=== PATIENT | male | born 1950 | race Caucasian/White ===

== ENCOUNTER 2022-06-19 14:55 | Emergency (ER) | payer MEDICARE, SELFPAY ==
--- NOTE | ~2022-06-19 | US_ITS ---
EXAMINATION: US venous doppler LE RT DATE: 06/19/2022 17:24 INDICATION: swelling . TECHNIQUE: Grayscale images without and with compression and Doppler images of the right lower extrem ity veins were obtained. COMPARISON: None FINDINGS: The right common femoral vein, profunda (deep) femoral vein, femoral vein, popliteal vein, peroneal v ein, posterior tibial veins, gastrocnemius vein, and greater saphenous vein are patent. Subcutaneous edema noted throughout the examination. IMPRESSION: 1. Patent right lower extremity veins. No evidence of deep venous thrombosis. Reviewed, dictated and finalized at location K. ARE INTERVIEWER
[2022-06-19 15:19] VITALS: BP 187/65; PULSE 84; RESP 16; TEMP 36.9; O2SAT 98
--- NOTE | 2022-06-19 18:37 | ED.LOWEXIN ---
HPI - Extremity Injury (Lower) General Chief Complaint: Extremity Injury, Lower <Jesus Dooley MD - Last Filed: 06/21/22 04:47> Stated Complaint: R. leg swelling <Jesus Dooley MD - Last Filed: 06/21/22 04:47> Time Seen by Provider: 06/19/22 16:46 <Jesus Dooley MD - Last Filed: 06/21/22 04:47> History of Present Illness HPI Narrative: Patient is a 72-year-old male who presents ER with right lower extremity swelling and pain. Patient reports that 2 weeks ago he was on a walk when he felt sudden onset pain in his lower calf. He then began developing some swelling in his ankle is progressed up his leg. No chest pain or chest pressure. No difficulty breathing. Denies fevers or chills or sweats. Concern for DVT when coming for further evaluation. Patient is currently being worked up for some anemia that was discovered during an admission 1 month ago at [facility]. 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 They did find a mass in her spine and with he was evaluated by orthopedic surgery recently and there is no intervention required. Patient is scheduled for a colonoscopy for further evaluation. He has been taking iron. Patient also reports he has been having spontaneous nosebleeds every few days over the last month as well. He takes a baby aspirin no other blood thinners. <Jesus Dooley MD - Last Filed: 06/21/22 04:47> Review of Systems Review of Systems: All systems reviewed & are unremarkable except as noted in HPI and below <Jesus Doloey MD - Last Filed: 06/21/22 04:47> Constitutional: Constitutional: Denies chills, Denies fatigue and Denies fever(s) <Jesus Dooley MD - Last Filed: 06/21/22 04:47> ENT: Reports epistaxis, Denies nasal congestion and Denies sore throat <Jesus Dooley MD - Last Filed: 06/21/22 04:47> Cardiovascular: Cardiovascular: Denies chest pain, Denies rapid heart rate and Denies radiating jaw, neck or arm pain <Jesus Dooley MD - Last Filed: 06/21/22 04:47> Gastrointestinal: Gastrointestinal: Denies abdominal pain, Denies nausea and Denies vomiting <Jesus Dooley MD - Last Filed: 06/21/22 04:47> Musculoskeletal: Comments: Right lower extremity edema and bruising <Jesus Dooley MD - Last Filed: 06/21/22 04:47> Neurologic: Denies focal weakness and Denies numbness <Jesus Dooley MD - Last Filed: 06/21/22 04:47> PMFSH Past Medical History Medical History: Medical History (Updated 06/20/22 @ 00:07 by Zeus Moreira) Anemia Brain tumor Diabetes History of seizure disorder Hypertension <Jesus Dooley MD - Last Filed: 06/21/22 04:47> Surgical History Surgical History: Surgical History (Updated 06/19/22 @ 19:09 by Jesus Dooley MD) History of brain surgery Hx of total knee arthroplasty <Jesus Dooley MD - Last Filed: 06/21/22 04:47> Social History Social History: Social History (Updated 06/19/22 @ 19:09 by Jesus Dooley MD) Smoking status: Never smoker <Jesus Dooley MD - Last Filed: 06/21/22 04:47> Exam Narrative: GENERAL: Well-appearing, well-nourished, and in no acute distress. HEAD: Normocephalic, atraumatic. EYES: PERRL and EOMI. ENT: Mucous membranes moist. Small trickle of blood from the right naris that is easily stopped. CHEST: Clear to auscultation. No respiratory distress. HEART: Regular rate and rhythm. Normal peripheral pulses. ABDOMEN: Soft, nontender, nondistended. EXTREMITIES: Right lower extremity with pitting edema from the foot up to the thigh. Posterior aspect of the thigh with extensive bruising. Bilateral hamstrings intact at the knee. Patient has some limited flexion of the knee due to swelling and pain. Patient also tender over posterior inferior gastrocnemius. Achilles tendon intact as the foot plantar flexes with manipulation of the gastrocnemius. No tenderness at the insertion of the Achilles to the heel. There is some yellowing of the
[2022-06-19 19:09] LABS: Basophils Absolute Auto 0.1 K/mm3 (0.0-0.1); Basophils Percent Auto 0.9 % (0.2-1.2); Eosinophils Absolute Auto 0.1 K/mm3 (0-0.3); Hemoglobin 10.7 g/dL (14.0-18.0); Immature Granulocyte Absolute 0.03 K/mm3 (0.00-0.031); Immature Granulocyte Percent A 0.4 % (0-0.5); Immature Platelet Fraction Pct 6.2 % (0.9-11.2); Lymphocytes Absolute Auto 1.51 K/mm3 (0.9-3.2); Lymphocytes Percent Auto 22.5 % (18.3-44.2); Mean Corpuscular HGB Conc 31.5 g/dl (32-36); Mean Corpuscular Hemoglobin 27.4 pg (26-34); Mean Platelet Volume 10.6 fl (7.4-10.4); Monocytes Absolute Auto 0.6 K/mm3 (0.1-0.6); Monocytes Percent Auto 8.2 % (2.6-8.5); Neutrophils Absolute Auto 4.5 K/mm3 (1.3-6.7); Platelet Count Result 153 k/mm3 (150-375); Red Blood Count 3.91 M/mm3 (4.6-6.20); Red Cell Distribution Width 16.1 % (11.5-14.5); White Blood Count 6.7 K/mm3 (4.5-10.0)
[2022-06-19 19:22] LABS: INR 1.2; Prothrombin Time 14.3 Seconds (11.1-14.7)
[2022-06-19 19:23] LABS: Alanine Aminotransferase 14 U/L (6-50); Albumin Level 3.6 g/dL (3.5-5.1); Alkaline Phosphatase 56 U/L (38-126); Anion Gap 6 mmol/L (8-16); Aspartate Amino Transferase 17 U/L (17-59); Bilirubin,Total 0.6 mg/dL (0.2-1.3); Blood Urea Nitrogen 13 mg/dL (9-20); Calcium 8.5 mg/dL (8.4-10.2); Carbon Dioxide 25 mmol/L (22-30); Chloride 110 mmol/L (98-107); Estimated CRCL calculation 83 ml/min; Estimated Glomerular Filt Rate > 60; Glucose 83 mg/dL (65-110); Potassium 4.5 mmol/L (3.4-5.0); Sodium 141 mmol/L (137-145)
[2022-06-19 19:49] LABS: Partial Thromboplastin Time 38.5 SECONDS (22.3-36.8)
== END 2022-06-19 20:36 | disposition home or self-care (01) ==
PROVIDERS: Emergency Medicine; Emergency Provider Emergency Medicine
DX: S76.811A Strain of other specified muscles, fascia and tendons at thigh level, right thigh, initial encounter (principal); M79.661 Pain in right lower leg; T14.90XA Injury, unspecified, initial encounter; R79.1 Abnormal coagulation profile; E11.9 Type 2 diabetes mellitus without complications; I10 Essential (primary) hypertension
CPT/HCPCS: 36415; 80053; 85025; 85055; 85610; 85730; 93971; 99284

== ENCOUNTER 2022-08-02 05:37 | Emergency (ER) | payer MEDICARE, SELFPAY ==
[2022-08-02] VITALS (15 sets, daily range): BP systolic 160–182; BP diastolic 75–107; PULSE 81–92; RESP 14–20; TEMP 36.3–36.5; O2SAT 92–100
--- NOTE | ~2022-08-02 | XR_ITS ---
EXAMINATION: XR chest 1V portable DATE: 08/02/2022 06:29 INDICATION: Right-sided flank pain. TECHNIQUE: frontal view of the chest was obtained. COMPARISON: None FINDINGS: The lungs are clear with no focal airspace opacities, pulmonary edema, pleural effusion or pneumothor ax. The cardiomediastinal silhouette is normal. Mild thoracic dextrocurvature with moderate to severe spondylosis. IMPRESSION: 1. No acute cardiopulmonary disease. Reviewed, dictated and finalized at location A. STRIAL EDUCATION INSTRUCTOR
--- NOTE | ~2022-08-02 | CT_ITS ---
EXAMINATION: CT abdomen pelvis w con DATE: 08/02/2022 07:07 INDICATION: Right-sided abdominal pain and flank pain TECHNIQUE: Computed tomography (CT) of the abdomen and pelvis was performed with 100 mL Omnipaque-350 intravenous contrast. Automated exposure control and iterative reconstruction technique were employe d. The dose-length product was 1117.84 mGy-cm. COMPARISON: None FINDINGS: Minimal dependent atelectasis in the bilateral lower lobes. Heart size is normal. Atherosclerotic cor onary artery calcification. Mild aortic valve calcification. Small pericardial effusion. Cholecystect leighton clips the gallbladder fossa. Mild periportal edema. Splenomegaly measuring 15.6 cm in maximal marques gth. Pancreas and bilateral adrenal glands are normal. 11 mm nonobstructing stone at a lower pole maya yx of the right kidney. A few bilateral subcentimeter low-attenuation likely renal cysts which are to o small to definitively characterize. Moderate bilateral perinephric stranding with additional mild a nd retroperitoneal edema extending into the pelvis. There is haziness to the fat surrounding the blad chelle suspicious for cystitis. Suture line near the tip the cecum consistent with prior appendectomy. T here is mild colonic diverticulosis with descending colon predominance and without adjacent inflammat ory change to suggest diverticulitis. No bowel obstruction. There are couple peripherally calcified n odules in the fat anterior to the proximal sigmoid colon likely heterotopic ossification related to p rior fat necrosis. Small fat-containing left inguinal hernia. No abscess or free intraperitoneal gas or fluid. Mild thoracolumbar levocurvature with moderate to severe spondylosis. Chronic appearing com pression fractures at T11 and L1. IMPRESSION: 1. Haziness to the fat surrounding the bladder and moderate bilateral perinephric stranding suspiciou s for cystitis and I clear ascending urinary tract infection but without definitive pyelonephritis. C orrelate with urinalysis. 2. 11 mm nonobstructing right renal stone. 2. Small pericardial effusion. Reviewed, dictated and finalized at location A. ACT LENS FLASHING PUNCHER IMPRESSION: 1. Haziness to the fat surrounding the bladder and moderate bilateral perinephr ic stranding suspicious for cystitis and I clear ascending urinary tract infect ion but without definitive pyelonephritis. Correlate with urinalysis. 2. 11 mm nonobstructing right renal stone. 2. Small pericardial effusion.
--- NOTE | 2022-08-02 05:44 | ED.GENADULT ---
HPI - General Adult General Chief complaint: Urogenital-Male <Frantz Ramirez MD - Last Filed: 08/04/22 01:57> Stated complaint: back pain <Frantz Ramirez MD - Last Filed: 08/04/22 01:57> Time Seen by Provider: 08/02/22 05:44 <Frantz Ramirez MD - Last Filed: 08/04/22 01:57> History of Present Illness HPI narrative: This is a 72-year-old male presenting ED with a chief complaint of right-sided flank and abdominal pain. Patient says that the pain started 4 nights ago on Sunday. The pain is a burning sensation in his right flank that wraps around into his groin. The pain improved at that time with some Tylenol but then recurred again yesterday. Patient has never had pain like this before. There are no exacerbating or alleviating factors. Patient states that he has been told that he has nonobstructing kidney stones by several physicians. Patient denies fever, chills, dysuria urgency or frequency although he says that he is having trouble urinating at this time. Patient notes that he has had a small-bowel obstruction in the past that resolved without surgery. He has not had a bowel movement 3 days and does not know when the last time he passed gas. Patient denies any increased physical activity or movement as a trigger for his pain. Patient denies bowel incontinence, history of IV drug abuse or trauma. <Frantz Ramirez MD - Last Filed: 08/04/22 01:57> Related Data Home medications: Home Medications Medication Instructions Recorded Confirmed amlodipine 5 mg tablet 5 mg PO DAILY 08/03/22 08/03/22 aspirin 81 mg tablet 81 mg PO DAILY 08/03/22 08/03/22 atorvastatin 40 mg tablet 40 mg PO DAILY 08/03/22 08/03/22 ferrous sulfate 325 mg (65 mg 325 mg PO DAILY 08/03/22 08/03/22 iron) tablet insulin aspart U-100 100 unit/mL 5 unit subcut TIDWMEAL 08/03/22 08/03/22 (3 mL) subcutaneous pen (Novolog FlexPen U-100 Insulin aspart) insulin glargine 100 unit/mL (3 30 unit subcut QAM 08/03/22 08/03/22 mL) subcutaneous pen (Lantus Solostar U-100 Insulin) krill oil 500 mg capsule 500 mg PO DAILY 08/03/22 08/03/22 levetiracetam 1,000 mg tablet 1,000 mg PO DIRECTED 08/03/22 08/03/22 lisinopril 20 mg tablet 20 mg PO DAILY 08/03/22 08/03/22 metformin 1,000 mg tablet 1,000 mg PO BID 08/03/22 08/03/22 multivitamin with minerals-folic 1 tablet PO DAILY 08/03/22 08/03/22 acid 0.4 mg tablet pantoprazole 40 mg tablet,delayed 40 mg PO DAILY 08/03/22 08/03/22 release <Frantz Ramirez MD - Last Filed: 08/04/22 01:57> Allergies/adverse reactions: Allergies Allergy/AdvReac Type Severity Reaction Status Date / Time codeine Allergy Unknown Other Verified 08/03/22 11:17 empagliflozin Allergy Unknown Other Verified 08/03/22 11:17 [From Jardiance] <Frantz Ramirez MD - Last Filed: 08/04/22 01:57> [facility] Past Medical History Medical History: Medical History Anemia Brain tumor Diabetes History of seizure disorder Hypertension <Frantz Ramirez MD - Last Filed: 08/04/22 01:57> Surgical History Surgical History: Surgical History History of brain surgery Hx of total knee arthroplasty <Frantz Ramirez MD - Last Filed: 08/04/22 01:57> Social History Social History: Social History Smoking status: Former smoker Tobacco type: pipe Substance use type: does not use Living arrangements: alone Spiritual care concerns: No <Frantz Ramirez MD - Last Filed: 08/04/22 01:57> Exam Narrative: APPEARANCE: Patient appears uncomfortable Head: atraumatic. EYES: EOMI, NOSE: Atraumatic NECK: Trachea midline RESPIRATORY: No increased rate of breathing CARDIOVASCULAR: RRR, ABDOMINAL: right-sided abdominal pain, right-sided CVA tenderness. No guarding or rebound. MUSCULOSKELETAl: No obvious deformities
--- NOTE | 2022-08-02 05:56 | PC.NURSE ---
Bladder scan post void showed 52ml urine
[2022-08-02 06:03] LABS: Appearance Urine Clear (Clear); Bacteria Urine None Seen /hpf; Bilirubin Urine Negative (Negative); Blood Urine 1+ (Negative); Color Urine Yellow (Yellow); Glucose Urine UA Negative (Negative); Ketones Urine Negative (Negative); Leukocyte Esterase Ur Negative LEU/UL (Negative); Nitrate Urine Negative (Negative); Non Pathogenic Casts 0-2; Protein Urine 3+ mg/dL (Negative); RBC Urine 0-2 /hpf (0-2); Specific Grav Ur 1.022 (1.001-1.035); Squamous Epithelial Cell Urine None seen /hpf (Few); Urobilinogen Urine 0.2 mg/dL (<2.0); WBC Urine 0-5 /hpf
[2022-08-02] MEDS: IBUPROFEN 400 MG TABLET 800 MG PO (06:27)
[2022-08-02] MEDS: SODIUM CHLORIDE 0.9% IV 1,000 ML 999 ML IV CONT (06:27)
[2022-08-02] MEDS: ACETAMINOPHEN 500 MG TABLET 1000 MG PO (06:27)
[2022-08-02 06:29] LABS: Basophils Absolute Auto 0.1 K/mm3 (0.0-0.1); Eosinophils Absolute Auto 0.1 K/mm3 (0-0.3); Eosinophils Percent Auto 1.8 % (0-4.4); Immature Granulocyte Absolute 0.03 K/mm3 (0.00-0.031); Immature Granulocyte Percent A 0.4 % (0-0.5); Immature Platelet Fraction Pct 7.7 % (0.9-11.2); Lymphocytes Absolute Auto 1.54 K/mm3 (0.9-3.2); Lymphocytes Percent Auto 23.1 % (18.3-44.2); Mean Corpuscular HGB Conc 31.6 g/dl (32-36); Mean Corpuscular Hemoglobin 27.6 pg (26-34); Mean Corpuscular Volume 87.4 fl (80-100); Mean Platelet Volume 11.7 fl (7.4-10.4); Monocytes Absolute Auto 0.3 K/mm3 (0.1-0.6); Monocytes Percent Auto 5.1 % (2.6-8.5); Neutrophils Absolute Auto 4.6 K/mm3 (1.3-6.7); Neutrophils Percent Auto 68.6 % (45.5-73.1); Platelet Count Result 108 k/mm3 (150-375); Red Blood Count 4.35 M/mm3 (4.6-6.20); Red Cell Distribution Width 14.6 % (11.5-14.5); White Blood Count 6.7 K/mm3 (4.5-10.0)
[2022-08-02 06:36] LABS: Lipase 50 U/L (23-300); Magnesium 1.6 mg/dL (1.6-2.3)
[2022-08-02 06:37] LABS: Lactic Acid Reflex 1.1 mmol/L (0.7-2.0)
[2022-08-02 06:38] LABS: INR 1.1; Prothrombin Time 13.9 Seconds (11.1-14.7)
[2022-08-02 06:39] LABS: Partial Thromboplastin Time 39.4 SECONDS (22.3-36.8)
[2022-08-02 06:40] LABS: Alanine Aminotransferase 18 U/L (6-50); Alkaline Phosphatase 45 U/L (38-126); Anion Gap 7 mmol/L (8-16); Aspartate Amino Transferase 26 U/L (17-59); Bilirubin,Total 0.5 mg/dL (0.2-1.3); Blood Urea Nitrogen 14 mg/dL (9-20); Calcium 8.8 mg/dL (8.4-10.2); Carbon Dioxide 25 mmol/L (22-30); Chloride 105 mmol/L (98-107); Estimated CRCL calculation 85 ml/min; Estimated Glomerular Filt Rate > 60; Glucose 149 mg/dL (65-110); Potassium 4.3 mmol/L (3.4-5.0); Sodium 137 mmol/L (137-145)
[2022-08-02] MEDS: methocarbamoL 750 MG TABLET PO (06:47)
[2022-08-02 06:50] LABS: Add Urine Microscopic? YES
[2022-08-02 07:02] LABS: Influenza A QL RT-PCR Negative (Negative); Influenza B QL RT-PCR Negative (Negative); RSV RNA, RT-PCR Negative (Negative); SARS-CoV-2 RNA PCR Negative
[2022-08-02] MEDS: ONDANSETRON INJ 4 MG/2 ML VIAL IV PUSH (08:52)
[2022-08-02] MEDS: MORPHINE SULFATE (*CRX) 4 MG/ML INJ IV PUSH (08:55)
[2022-08-02] MEDS: CIPROFLOXACIN 500 MG TAB PO (09:24)
== END 2022-08-02 09:30 | disposition home or self-care (01) ==
PROVIDERS: Emergency Medicine; Emergency Provider Emergency Medicine; PCP Emergency Medicine
DX: N39.0 Urinary tract infection, site not specified (principal); Z20.822 Contact with and (suspected) exposure to COVID-19; G40.909 Epilepsy, unspecified, not intractable, without status epilepticus; E11.9 Type 2 diabetes mellitus without complications; I10 Essential (primary) hypertension; Z96.659 Presence of unspecified artificial knee joint; Z87.891 Personal history of nicotine dependence; Z79.84 Long term (current) use of oral hypoglycemic drugs; Z79.4 Long term (current) use of insulin; Z79.82 Long term (current) use of aspirin; N20.0 Calculus of kidney
CPT/HCPCS: 36415; 71045; 74177; 80053; 81001; 83605; 83690; 83735; 85025; 85055; 85610; 85730; 87637; 96361; 96374; 96375; 99284; A9270; J2270; J2405; J7030; Q9967

== ENCOUNTER 2022-08-04 17:14 | Outpatient (CLI) | payer MEDICARE, SELFPAY ==
[2022-08-04 17:30] LABS: Appearance Urine Clear (Clear); Basophils Absolute Auto 0.07 K/mm3 (0.00-0.10); Basophils Percent Auto 0.9 % (0.0-1.0); Bilirubin Urine Negative (Negative); Blood Urine 1+ (Negative); Color Urine Light Yellow (Yellow); Eosinophils Absolute Auto 0.08 K/mm3 (0.02-0.50); Eosinophils Percent Auto 1.1 % (1.0-6.0); Glucose Urine UA Negative (Negative); Hematocrit 39.8 % (37.0-46.0); Hemoglobin 12.5 g/dL (12.4-15.3); Immature Granulocyte Absolute 0.03 K/mm3 (0.00-0.00); Immature Granulocyte Percent A 0.4 % (0.0-0.0); Immature Platelet Fraction Pct 7.1 % (1.0-7.0); Ketones Urine Negative (Negative); Leukocyte Esterase Ur Negative (Negative); Lymphocytes Absolute Auto 2.05 K/mm3 (1.10-4.50); Lymphocytes Percent Auto 27.6 % (18.0-42.0); Mean Corpuscular HGB Conc 31.4 g/dL (32.0-36.0); Mean Corpuscular Hemoglobin 27.4 pg (27.0-31.0); Mean Corpuscular Volume 87.3 fL (78.0-102.0); Mean Platelet Volume 11.2 fl (8.7-11.0); Monocytes Absolute Auto 0.49 K/mm3 (0.10-0.90); Monocytes Percent Auto 6.6 % (2.0-11.0); Neutrophils Absolute Auto 4.7 K/mm3 (1.7-7.2); Neutrophils Percent Auto 63.4 % (50.0-70.0); Nitrate Urine Negative (Negative); Platelet Count Result 128 K/mm3 (150-420); Protein Urine 2+ (Negative); Red Blood Count 4.56 M/mm3 (4.70-6.10); Red Cell Distribution Width 14.4 % (11.6-14.4); Specific Grav Ur 1.025 (1.010-1.020); Urobilinogen Urine 0.2 mg/dL (0.2-1.0); White Blood Count 7.4 K/mm3 (4.8-10.8); pH Urine 5.5 (5.0-8.0)
[2022-08-04 18:51] LABS: Add Urine Microscopic? YES; Bacteria Urine Trace /hpf; WBC Urine 0-3 /hpf (0-3)
[2022-08-04 19:10] LABS: Alanine Aminotransferase 20 U/L (16-63); Alkaline Phosphatase 54 U/L (46-116); Anion Gap 11 mmol/L (8-16); Aspartate Amino Transferase 13 U/L (15-37); Bilirubin,Total 0.3 mg/dL (0.00-1.00); Blood Urea Nitrogen 12 mg/dL (7-18); Calcium 8.8 mg/dL (8.5-10.1); Carbon Dioxide 28 mmol/L (21-32); Chloride 109 mmol/L (98-108); Estimated Glomerular Filt Rate > 60; Glucose 91 mg/dL (70-99); Osmolality Calculated 305 mOsm/kg (285-295); Potassium 4.3 mmol/L (3.5-5.1); Prostate Specific Antigen 0.5 ng/mL (< OR = 4.0); Sodium 148 mmol/L (136-145); Total Protein 7.1 g/dL (6.4-8.2)
== END 2022-08-04 17:15 | disposition home or self-care (01) ==
LOC: CHSLAB 17:15
PROVIDERS: PCP Internal Medicine; Visit Provider Internal Medicine
DX: R10.9 Unspecified abdominal pain (principal); N41.9 Inflammatory disease of prostate, unspecified
CPT/HCPCS: 36415; 80053; 81001; 84153; 85025; 85055; 87086

== ENCOUNTER 2022-08-14 02:13 | Day surgery (SDC) | payer MEDICARE, SELFPAY ==
[2022-08-03 11:16] VITALS: BMI 32.5
[2022-08-14 10:19] VITALS: BP 175/60; PULSE 72; RESP 20; TEMP 36.4; O2SAT 100
[2022-08-14] MEDS: LACTATED RINGERS 1,000 ML 150 ML IV CONT (10:35)
[2022-08-14 10:36] LABS: Glucose Point of Care 144 mg/dl (65-105)
--- NOTE | 2022-08-14 10:42 | PM.HPGS ---
History of Present Illness History of Present Illness Consent: Risks, benefits, and alternatives have been discussed and questions answered. Patient agrees to proceed with procedure. Chief complaint: DYLAN, Blood in stool, hx colon polyps Narrative: Dane Parker is a 72 year old male with last colonoscopy ~ 3 years ago, had polyps, also occult blood stool Review of Systems Constitutional: Constitutional: Denies headache(s) and Denies weakness Eyes: Eyes: Denies blurry vision ENT: Reports Normal hearing present, Denies headache(s) and Denies neck pain Cardiovascular: Cardiovascular: Denies chest pain and Denies dyspnea Respiratory: Respiratory: Denies dyspnea Gastrointestinal: Gastrointestinal: Reports no additional gastrointestinal complaints Genitourinary: Genitourinary: Denies dysuria Musculoskeletal: Musculoskeletal: Denies neck pain Integumentary/Breasts: Skin/Breast: Denies dry skin Neurologic: Reports Normal hearing present, Denies headache(s) and Denies weakness Psychiatric: Psychiatric: Denies anxiety Endocrine: Endocrine: Denies change in body appearance Hematologic/Lymphatic: Hematologic/Lymphatic: Denies easy bleeding Allergic/Immunologic: Allergic/Immunologic: Denies urticaria PMFSH Past Medical History Medical History (Updated 08/14/22 @ 10:43 by Jaron Crook MD) Anemia Brain tumor Colon polyp Diabetes History of seizure disorder Hypertension Occult blood in stools Surgical History Surgical History History of brain surgery Hx of total knee arthroplasty Social History Social History Smoking status: Former smoker Tobacco type: pipe Substance use type: does not use Living arrangements: alone Spiritual care concerns: No Meds Home Medications and Allergies Home Medications Medication Instructions Recorded Confirmed Type amlodipine 5 mg tablet 5 mg PO DAILY 08/03/22 08/03/22 History aspirin 81 mg tablet 81 mg PO DAILY 08/03/22 08/03/22 History atorvastatin 40 mg tablet 40 mg PO DAILY 08/03/22 08/03/22 History ferrous sulfate 325 mg (65 mg 325 mg PO DAILY 08/03/22 08/03/22 History iron) tablet insulin aspart U-100 100 unit/mL 5 unit subcut TIDWMEAL 08/03/22 08/03/22 History (3 mL) subcutaneous pen (Novolog FlexPen U-100 Insulin aspart) insulin glargine 100 unit/mL (3 30 unit subcut QAM 08/03/22 08/03/22 History mL) subcutaneous pen (Lantus Solostar U-100 Insulin) krill oil 500 mg capsule 500 mg PO DAILY 08/03/22 08/03/22 History levetiracetam 1,000 mg tablet 1,000 mg PO DIRECTED 08/03/22 08/03/22 History lisinopril 20 mg tablet 20 mg PO DAILY 08/03/22 08/03/22 History metformin 1,000 mg tablet 1,000 mg PO BID 08/03/22 08/03/22 History multivitamin with minerals-folic 1 tablet PO DAILY 08/03/22 08/03/22 History acid 0.4 mg tablet pantoprazole 40 mg tablet,delayed 40 mg PO DAILY 08/03/22 08/03/22 History release Allergies Allergy/AdvReac Type Severity Reaction Status Date / Time codeine Allergy Unknown Other Verified 08/14/22 10:18 empagliflozin Allergy Unknown Other Verified 08/14/22 10:18 [From Jardiance] Vital Signs Vital Signs - 24 hr 08/14/22 10:19 Temperature 97.5 F L Pulse Rate 72 Respiratory Rate 20 Blood Pressure 175/60 H Pulse Oximetry 100 Oxygen Delivery Room Air Exam Const: General: comfortable and no acute distress HENMT: Face/Nose/Sinus: Normal nares present Eyes: General: appearance normal, both eyes and all related structures Neck: Neck: no JVD Resp: Auscultation: clear to auscultation bilaterally Cardio: Rate: regular rate Rhythm: regular rhythm GI: Inspection: non-distended GI Palp: Yes Soft to palpation Skin: General skin exam: normal color Neuro: General: gait normal Speech: normal speech Extrem: General: normal to inspection Psych: Mental Status:
--- NOTE | 2022-08-14 10:50 | WPDANESEPPF ---
Anes - Initial Pre Proc Eval Procedure: Operation Date: 08/14/22 11:30 Proposed Procedures p Colonoscopy - Jaron Crook MD Date/Time: 08/14/22 10:50 Surgeon: Jaron Crook MD Pre Op Diagnosis: DYLAN, Blood in stool, hx colon polyps Patient Data Age: 72 Gender: M Height: 1.75 m Weight: 94.3 kg Last Vital Signs Temp 97.5 F L 08/14/22 10:19 Pulse 72 08/14/22 10:19 Resp 20 08/14/22 10:19 BP 175/60 H 08/14/22 10:19 Pulse Ox 100 08/14/22 10:19 O2 Del Method Room Air 08/14/22 10:19 Allergies Allergy/AdvReac Type Severity Reaction Status Date / Time codeine Allergy Unknown Other Verified 08/14/22 10:18 empagliflozin Allergy Unknown Other Verified 08/14/22 10:18 [facility] Home Medications Medication Instructions Recorded Confirmed Type amlodipine 5 mg tablet 5 mg PO DAILY 08/03/22 08/03/22 History aspirin 81 mg tablet 81 mg PO DAILY 08/03/22 08/03/22 History atorvastatin 40 mg tablet 40 mg PO DAILY 08/03/22 08/03/22 History ferrous sulfate 325 mg (65 mg 325 mg PO DAILY 08/03/22 08/03/22 History iron) tablet insulin aspart U-100 100 unit/mL 5 unit subcut TIDWMEAL 08/03/22 08/03/22 History (3 mL) subcutaneous pen (Novolog FlexPen U-100 Insulin aspart) insulin glargine 100 unit/mL (3 30 unit subcut QAM 08/03/22 08/03/22 History mL) subcutaneous pen (Lantus Solostar U-100 Insulin) krill oil 500 mg capsule 500 mg PO DAILY 08/03/22 08/03/22 History levetiracetam 1,000 mg tablet 1,000 mg PO DIRECTED 08/03/22 08/03/22 History lisinopril 20 mg tablet 20 mg PO DAILY 08/03/22 08/03/22 History metformin 1,000 mg tablet 1,000 mg PO BID 08/03/22 08/03/22 History multivitamin with minerals-folic 1 tablet PO DAILY 08/03/22 08/03/22 History acid 0.4 mg tablet pantoprazole 40 mg tablet,delayed 40 mg PO DAILY 08/03/22 08/03/22 History release Laboratory Tests 08/14/22 10:26 POC Capillary Glucose 144 mg/dl H mg/dl (65-105) Patient hx anesthesia problems: none Family hx anesthesia problems: none Results Review: All pre-operative results and documents have been reviewed as part of the pre-operative evaluation. [facility] Past Medical History Medical History (Updated 08/14/22 @ 10:43 by Jaron Crook MD) Anemia Brain tumor Colon polyp Diabetes History of seizure disorder Hypertension Occult blood in stools Surgical History Surgical History History of brain surgery Hx of total knee arthroplasty Social History Social History Smoking status: Former smoker Tobacco type: pipe Substance use type: does not use Living arrangements: alone Spiritual care concerns: No Anes - Eval Final PreProcedure Day of Procedure 08/14/22 10:50 Patient weight: normal Heart: irregular rhythm Lungs: clear to auscultation Airway: Mallampati scale class II Neurological: alert and oriented Last oral intake: >/= 8 hours ASA classification: III Emergent: no Anesthetic plan: proceed Anesthesia type and monitoring: general GIVS and standard monitoring Results Review: All pre-operative results and documents have been reviewed as part of the pre-operative evaluation. Informed Consent: The patient's anesthetic plan and its attendant risks and benefits were discussed with the patient/family/POA. Questions were solicited and answers provided to the satisfaction of the patient/family/POA.
[2022-08-14 11:16] VITALS: BP 125/72; PULSE 79; RESP 33; O2SAT 99
[2022-08-14 11:26] VITALS: BP 128/68; PULSE 81; RESP 29; O2SAT 98
[2022-08-14 11:36] VITALS: BP 159/84; PULSE 82; RESP 18; O2SAT 99
== END 2022-08-14 11:43 | disposition home or self-care (01) ==
PROVIDERS: PCP Internal Medicine; Referring Provider Internal Medicine; Visit Provider Internal Medicine Gastroenterology
PROC: 0DJD8ZZ Inspection of Lower Intestinal Tract, Via Natural or Artificial Opening Endoscopic (ICD-10-PCS; CPT 45378; principal; 2022-08-14 11:30)
DX: K92.1 Melena (principal); D12.3 Benign neoplasm of transverse colon; D12.4 Benign neoplasm of descending colon; K57.30 Diverticulosis of large intestine without perforation or abscess without bleeding; K64.8 Other hemorrhoids; D50.9 Iron deficiency anemia, unspecified; E11.9 Type 2 diabetes mellitus without complications; I10 Essential (primary) hypertension; G40.909 Epilepsy, unspecified, not intractable, without status epilepticus; Z79.82 Long term (current) use of aspirin; Z79.4 Long term (current) use of insulin; Z79.84 Long term (current) use of oral hypoglycemic drugs; Z87.891 Personal history of nicotine dependence
CPT/HCPCS: 45385; 82948; 88305; J2704; J7120

== ENCOUNTER 2022-10-03 01:58 | Day surgery (SDC) | payer MEDICARE, SELFPAY ==
[2022-09-21 11:37] VITALS: BMI 30.9
[2022-10-03 08:10] VITALS: BP 166/80; PULSE 79; RESP 18; TEMP 36; O2SAT 100
[2022-10-03] MEDS: LACTATED RINGERS 1,000 ML 150 ML IV CONT (08:32)
[2022-10-03 08:33] LABS: Glucose Point of Care 195 mg/dl (65-105)
--- NOTE | 2022-10-03 09:05 | PM.HPGS ---
History of Present Illness History of Present Illness Consent: Risks, benefits, and alternatives have been discussed and questions answered. Patient agrees to proceed with procedure. Chief complaint: DYLAN Narrative: Dane Parker is a 72 year old male with mild anemia but repeat h/h normal, recent colonoscopy unremarkable, no overt gib but had occult blood in stool Review of Systems Constitutional: Constitutional: Denies headache(s) and Denies weakness Eyes: Eyes: Denies blurry vision ENT: Reports Normal hearing present, Denies headache(s) and Denies neck pain Cardiovascular: Cardiovascular: Denies chest pain and Denies dyspnea Respiratory: Respiratory: Denies dyspnea Gastrointestinal: Gastrointestinal: Reports no additional gastrointestinal complaints Genitourinary: Genitourinary: Denies dysuria Musculoskeletal: Musculoskeletal: Denies neck pain Integumentary/Breasts: Skin/Breast: Denies dry skin Neurologic: Reports Normal hearing present, Denies headache(s) and Denies weakness Psychiatric: Psychiatric: Denies anxiety Endocrine: Endocrine: Denies change in body appearance Hematologic/Lymphatic: Hematologic/Lymphatic: Denies easy bleeding Allergic/Immunologic: Allergic/Immunologic: Denies urticaria PMFSH Past Medical History Medical History (Updated 10/03/22 @ 09:06 by Jaron Crook MD) Anemia Brain tumor Colon polyp Diabetes History of seizure disorder Hypertension Occult blood in stools Surgical History Surgical History History of brain surgery Hx of total knee arthroplasty Social History Social History Smoking status: Former smoker Tobacco type: pipe Alcohol intake: never Substance use: never Substance use type: does not use Living arrangements: with family Spiritual care concerns: No Meds Home Medications and Allergies Home Medications Medication Instructions Recorded Confirmed Type amlodipine 5 mg tablet 5 mg PO DAILY 08/03/22 10/03/22 History aspirin 81 mg tablet 81 mg PO DAILY 08/03/22 10/03/22 History atorvastatin 40 mg tablet 40 mg PO DAILY 08/03/22 10/03/22 History ferrous sulfate 325 mg (65 mg 325 mg PO DAILY 08/03/22 10/03/22 History iron) tablet insulin aspart U-100 100 unit/mL 5 unit subcut TIDWMEAL 08/03/22 10/03/22 History (3 mL) subcutaneous pen (Novolog FlexPen U-100 Insulin aspart) insulin glargine 100 unit/mL (3 20 unit subcut DAILY 08/03/22 10/03/22 History mL) subcutaneous pen (Lantus Solostar U-100 Insulin) krill oil 500 mg capsule 500 mg PO DAILY 08/03/22 10/03/22 History levetiracetam 1,000 mg tablet 1,000 mg PO DIRECTED 08/03/22 10/03/22 History lisinopril 20 mg tablet 20 mg PO DAILY 08/03/22 10/03/22 History metformin 1,000 mg tablet 1,000 mg PO BID 08/03/22 10/03/22 History multivitamin with minerals-folic 1 tablet PO DAILY 08/03/22 10/03/22 History acid 0.4 mg tablet pantoprazole 40 mg tablet,delayed 40 mg PO DAILY 08/03/22 10/03/22 History release zonisamide 100 mg capsule 200 mg PO HS 09/21/22 10/03/22 History Allergies Allergy/AdvReac Type Severity Reaction Status Date / Time codeine Allergy Unknown Other Verified 10/03/22 08:17 empagliflozin Allergy Unknown Other Verified 10/03/22 08:17 [From J[facility]iance] Vital Signs Vital Signs - 24 hr 10/03/22 08:10 Temperature 96.8 F L Pulse Rate 79 Respiratory Rate 18 Blood Pressure 166/80 H Pulse Oximetry 100 Oxygen Delivery Room Air Exam Const: General: comfortable and no acute distress HENMT: Face/Nose/Sinus: Normal nares present Eyes: General: appearance normal, both eyes and all related structures Neck: Neck: no JVD Resp: Auscultation: clear to auscultation bilaterally Cardio: Rate: regular rate Rhythm: regular rhythm GI: Inspection: non-distended GI Palp: Yes Soft to palpation Skin: General skin exam:
--- NOTE | 2022-10-03 09:06 | WPDANESEPPF ---
Anes - Initial Pre Proc Eval Procedure: Operation Date: 10/03/22 09:30 Proposed Procedures p Esophagogastroduodenoscopy - Jaron Crook MD Date/Time: 10/03/22 09:06 Surgeon: Jaron Crook MD Pre Op Diagnosis: DYLAN Patient Data Age: 72 Gender: M Height: 1.75 m Weight: 92.4 kg Last Vital Signs Temp 96.8 F L 10/03/22 08:10 Pulse 79 10/03/22 08:10 Resp 18 10/03/22 08:10 BP 166/80 H 10/03/22 08:10 Pulse Ox 100 10/03/22 08:10 O2 Del Method Room Air 10/03/22 08:10 Allergies Allergy/AdvReac Type Severity Reaction Status Date / Time codeine Allergy Unknown Other Verified 10/03/22 08:17 empagliflozin Allergy Unknown Other Verified 10/03/22 08:17 [From [facility]] Home Medications Medication Instructions Recorded Confirmed Type amlodipine 5 mg tablet 5 mg PO DAILY 08/03/22 10/03/22 History aspirin 81 mg tablet 81 mg PO DAILY 08/03/22 10/03/22 History atorvastatin 40 mg tablet 40 mg PO DAILY 08/03/22 10/03/22 History ferrous sulfate 325 mg (65 mg 325 mg PO DAILY 08/03/22 10/03/22 History iron) tablet insulin aspart U-100 100 unit/mL 5 unit subcut TIDWMEAL 08/03/22 10/03/22 History (3 mL) subcutaneous pen (Novolog FlexPen U-100 Insulin aspart) insulin glargine 100 unit/mL (3 20 unit subcut DAILY 08/03/22 10/03/22 History mL) subcutaneous pen (Lantus Solostar U-100 Insulin) krill oil 500 mg capsule 500 mg PO DAILY 08/03/22 10/03/22 History levetiracetam 1,000 mg tablet 1,000 mg PO DIRECTED 08/03/22 10/03/22 History lisinopril 20 mg tablet 20 mg PO DAILY 08/03/22 10/03/22 History metformin 1,000 mg tablet 1,000 mg PO BID 08/03/22 10/03/22 History multivitamin with minerals-folic 1 tablet PO DAILY 08/03/22 10/03/22 History acid 0.4 mg tablet pantoprazole 40 mg tablet,delayed 40 mg PO DAILY 08/03/22 10/03/22 History release zonisamide 100 mg capsule 200 mg PO HS 09/21/22 10/03/22 History Laboratory Tests 10/03/22 08:23 POC Capillary Glucose 195 H mg/dl (65-105) Patient hx anesthesia problems: none Family hx anesthesia problems: none Results Review: All pre-operative results and documents have been reviewed as part of the pre-operative evaluation. [facility] Past Medical History Medical History (Updated 10/03/22 @ 09:06 by Jaron Crook MD) Anemia Brain tumor Colon polyp Diabetes History of seizure disorder Hypertension Occult blood in stools Surgical History Surgical History History of brain surgery Hx of total knee arthroplasty Social History Social History Smoking status: Former smoker Tobacco type: pipe Alcohol intake: never Substance use: never Substance use type: does not use Living arrangements: with family Spiritual care concerns: No Anes - Eval Final PreProcedure Day of Procedure 10/03/22 09:06 Patient weight: normal Heart: irregular rhythm Lungs: clear to auscultation Airway: Mallampati scale class II Neurological: alert and oriented Last oral intake: >/= 8 hours ASA classification: III Emergent: no Anesthetic plan: proceed Anesthesia type and monitoring: general GIVS and standard monitoring Results Review: All pre-operative results and documents have been reviewed as part of the pre-operative evaluation. Informed Consent: The patient's anesthetic plan and its attendant risks and benefits were discussed with the patient/family/POA. Questions were solicited and answers provided to the satisfaction of the patient/family/POA.
[2022-10-03 09:20] VITALS: BP 133/74; PULSE 74; RESP 20; O2SAT 100
[2022-10-03 09:30] VITALS: BP 140/69; PULSE 70; RESP 20; O2SAT 97
[2022-10-03 09:40] VITALS: BP 143/73; PULSE 68; RESP 20; O2SAT 98
[2022-10-03 09:44] LABS: Glucose Point of Care 177 mg/dl (65-105)
== END 2022-10-03 09:51 | disposition home or self-care (01) ==
PROVIDERS: PCP Internal Medicine; Visit Provider Internal Medicine Gastroenterology
PROC: 0DJ08ZZ Inspection of Upper Intestinal Tract, Via Natural or Artificial Opening Endoscopic (ICD-10-PCS; CPT 43235; principal; 2022-10-03 09:30)
DX: D64.9 Anemia, unspecified (principal); K29.70 Gastritis, unspecified, without bleeding; R19.5 Other fecal abnormalities; E11.9 Type 2 diabetes mellitus without complications; G40.909 Epilepsy, unspecified, not intractable, without status epilepticus; I10 Essential (primary) hypertension; Z87.891 Personal history of nicotine dependence; Z79.82 Long term (current) use of aspirin; Z79.4 Long term (current) use of insulin; Z79.84 Long term (current) use of oral hypoglycemic drugs
CPT/HCPCS: 43239; 82948; 88305; J2704; J7120

== ENCOUNTER 2022-10-26 18:05 | Emergency (ER) | payer MEDICARE, SELFPAY ==
--- NOTE | ~2022-10-26 | XR_ITS ---
EXAMINATION: XR ribs LT 2V DATE: 10/26/2022 18:37 INDICATION: Left rib injury post fall TECHNIQUE: Views of the left ribs were obtained. COMPARISON: Chest radiograph dated 08/02/22 FINDINGS: No rib fractures identified. Small lung volumes. No focal airspace opacities, pulmonary edema, pleura l effusion or pneumothorax. Heart size within normal limits for AP technique. Mild thoracic dextrocur vature with moderate thoracic and lumbar spondylosis. Cholecystectomy clips in right upper quadrant. IMPRESSION: 1. No rib fractures identified. Reviewed, dictated and finalized at location A.
--- NOTE | ~2022-10-26 | CT_ITS ---
EXAMINATION: CT brain wo con DATE: 10/26/2022 18:36 INDICATION: Left-sided head pain post fall TECHNIQUE: Computed tomography (CT) of the head was performed without intravenous contrast. Sagittal and coronal reconstructions were performed. The mA was adjusted according to patient size. Iterative reconstruction technique was employed. The dose-length product was 681.00 mGy-cm. COMPARISON: None FINDINGS: No acute fracture. Left frontal craniotomy with plate and screw fixations. Small region of encephalom alacia consistent with old infarct in the left frontal lobe. Additional small old lacunar infarct in the right frontal lobe white matter. No acute intracranial hemorrhage, acute infarction or abnormal e xtra axial fluid collection. There is mild scattered white matter hypoattenuation consistent with chr onic small vessel ischemic disease. Symmetric prominence of the sulci consistent with mild age-approp riate diffuse cerebral volume loss. Ventricles are normal and symmetric. No mass/mass effect. Changes of right intraocular lens replacement. The orbits and mastoid air cells are normal. Mucosal thickeni ng the ethmoid sinuses. Intracranial calcified cerebral atherosclerosis is noted. IMPRESSION: 1. No acute fracture or acute intracranial process. 2. Small old bilateral frontal infarcts. 2. Age-related changes including mild diffuse volume loss and mild scattered white matter hypoattenua tion consistent with chronic small vessel ischemic disease. Reviewed, dictated and finalized at location A. IMPRESSION: 1. No acute fracture or acute intracranial process. 2. Small old bilateral frontal infarcts. 2. Age-related changes including mild diffuse volume loss and mild scattered wh ite matter hypoattenuation consistent with chronic small vessel ischemic diseas e.
[2022-10-26 18:08] VITALS: BP 163/78; PULSE 77; TEMP 37.2; O2SAT 96
[2022-10-26] MEDS: KETOROLAC 30 MG/ML VIAL (*BKC) IM (19:01)
--- NOTE | 2022-10-26 19:09 | ED.HEATRA ---
HPI - Head Injury General Chief complaint: Fall Stated complaint: fall Time Seen by Provider: 10/26/22 18:10 Source: patient and EMS Mode of arrival: ambulatory Limitations: no limitations History of Present Illness HPI Narrative: This is a 72-year-old gentleman with a history of hypertension hyperlipidemia with chronic back pain with radiculopathy presents after he fell out of his chair, actually slid to the floor hit his head and left rib area unsure of loss of consciousness currently no headache no blurry vision no nausea vomiting does have tenderness to the left rib area, there is pain and tenderness to his lower back which is chronic with no injuries. Complaint: head injury Onset (ago): hour(s) Mechanism of Injury: fall Place: home Loss of Consciousness: unsure Location of injury: occipital Severity: mild Related Data Home Medications Medication Instructions Recorded Confirmed amlodipine 5 mg tablet 5 mg PO DAILY 08/03/22 10/03/22 aspirin 81 mg tablet 81 mg PO DAILY 08/03/22 10/03/22 atorvastatin 40 mg tablet 40 mg PO DAILY 08/03/22 10/03/22 ferrous sulfate 325 mg (65 mg 325 mg PO DAILY 08/03/22 10/03/22 iron) tablet insulin aspart U-100 100 unit/mL 5 unit subcut TIDWMEAL 08/03/22 10/03/22 (3 mL) subcutaneous pen (Novolog FlexPen U-100 Insulin aspart) insulin glargine 100 unit/mL (3 20 unit subcut DAILY 08/03/22 10/03/22 mL) subcutaneous pen (Lantus Solostar U-100 Insulin) krill oil 500 mg capsule 500 mg PO DAILY 08/03/22 10/03/22 levetiracetam 1,000 mg tablet 1,000 mg PO DIRECTED 08/03/22 10/03/22 lisinopril 20 mg tablet 20 mg PO DAILY 08/03/22 10/03/22 metformin 1,000 mg tablet 1,000 mg PO BID 08/03/22 10/03/22 multivitamin with minerals-folic 1 tablet PO DAILY 08/03/22 10/03/22 acid 0.4 mg tablet pantoprazole 40 mg tablet,delayed 40 mg PO DAILY 08/03/22 10/03/22 release zonisamide 100 mg capsule 200 mg PO HS 09/21/22 10/03/22 Allergies Allergy/AdvReac Type Severity Reaction Status Date / Time codeine Allergy Unknown Other Verified 10/03/22 08:17 empagliflozin Allergy Unknown Other Verified 10/03/22 08:17 [From Jardiance] Review of Systems Review of Systems: All systems reviewed & are unremarkable except as noted in HPI and below PMFSH Past Medical History Medical History Anemia Brain tumor Colon polyp Diabetes History of seizure disorder Hypertension Occult blood in stools Surgical History Surgical History History of brain surgery Hx of total knee arthroplasty Social History Social History Smoking status: Former smoker Tobacco type: pipe Alcohol intake: never Substance use: never Substance use type: does not use Living arrangements: with family Spiritual care concerns: No Exam Const: General: healthy appearing Nutritional Appearance: well nourished Orientation/consciousness: patient oriented x3 Limitations: no limitations HENMT: Head: normal to inspection Eyes: Conjunctivae: conjunctivae normal Pupils: Equal, round and reactive pupils present EOM: EOMs intact bilaterally Direct Ophthalmoscopy: no photophobia Neck: Neck: normal visual inspection Chest: Chest palpation & inspection: normal inspection of the chest Resp: Effort & Inspection: normal respiratory effort Cardio: Rate: regular rate Rhythm: regular rhythm GI: GI Palp: Yes Soft to palpation Auscultation: normal bowel sounds : General: Yes bladder normal to palpation Skin: General skin exam: normal color Rashes: no rashes Wounds: no wounds Neuro: General: patient oriented x3 and moves all extremities Extrem: General: normal to inspection Psych: Mental Status: mental status grossly normal Affect: normal affect Attitude: cooperative Course Course Emergency Course: Patient received IM [facility]
[2022-10-26 19:47] VITALS: BP 155/85; PULSE 73; RESP 20; O2SAT 96
== END 2022-10-26 19:48 | disposition home or self-care (01) ==
PROVIDERS: Emergency Provider Emergency Medicine; PCP Internal Medicine
DX: S20.212A Contusion of left front wall of thorax, initial encounter (principal); S09.90XA Unspecified injury of head, initial encounter; E11.9 Type 2 diabetes mellitus without complications; I10 Essential (primary) hypertension; E78.5 Hyperlipidemia, unspecified; Z79.4 Long term (current) use of insulin; Z87.891 Personal history of nicotine dependence; W07.XXXA Fall from chair, initial encounter; Y92.009 Unspecified place in unspecified non-institutional (private) residence as the place of occurrence of the external cause
CPT/HCPCS: 70450; 71100; 96372; 99284; J1885

== ENCOUNTER 2022-12-28 12:04 | Outpatient (CLI) | payer MEDICARE, SELFPAY ==
--- NOTE | ~2022-12-28 | XR_ITS ---
Clinical Indication: Dyspnea AP and lateral views of the chest: Comparison: 08/02/2022 Findings: The lungs are clear, without evidence of focal consolidation or pleural effusion. Cardiome diastinal silhouette is within normal limits. L1 compression fracture noted. Impression: Clear lungs. L1 compression fracture. Reviewed, dictated and finalized at location . Impression: Clear lungs. L1 compression fracture.
--- NOTE | ~2022-12-28 | CT_ITS ---
EXAMINATION: CT brain wo con DATE: 12/28/2022 12:49 INDICATION: Weakness. Right leg paralysis. TECHNIQUE: Computed tomography (CT) of the head was performed without intravenous contrast. The mA wa s adjusted according to patient size. Iterative reconstruction technique was employed. The dose-lengt h product was 605.33 mGy-cm. COMPARISON: Head CT 10/26/2022 FINDINGS: There are scattered areas of low attenuation in the cerebral white matter, which is within normal limits for the patient's age. There is an old infarct in the right frontal lobe deep white mat ter. There is an old infarct in left frontal lobe. There is no intracranial hemorrhage, acute infarct ion, or abnormal intracranial mass lesion. The ventricles are normal in size. There are likely change s of right ocular lens replacement surgery. There is mucosal thickening in the paranasal sinuses and nasal cavity. The mastoid air cells are normal. There is cerumen in the external auditory canals. The re are changes of left-sided craniotomy. IMPRESSION: 1. Old infarcts in the frontal lobes. Reviewed, dictated and finalized at location L.
--- NOTE | ~2022-12-28 | CT_ITS ---
EXAMINATION: CT lumbar spine w con DATE: 12/28/2022 12:49 INDICATION: Weakness. Right leg paralysis. TECHNIQUE: Computed tomography (CT) of the lumbar spine was performed with 100 mL Omnipaque 350 intra venous contrast. Automated exposure control and iterative reconstruction technique were employed. The dose-length product was 987.95 mGy-cm. COMPARISON: None FINDINGS: There is 10 degrees levoscoliosis of lumbar spine. There is a chronic compression fracture of L1 with 3/5 loss of height centrally. There is severely decreased disc height at T11-T12, mildly d ecreased disc height at L1-L2, moderately decreased disc height at L2-L3, and mildly decreased disc h eight at L3-L4 and L4-L5. There are laminectomies from L3 to L5. There is hematoma in the postsurgica l bed, likely subacute. No active extravasation of contrast. The following disc levels are specifical ly discussed: L1-L2: The disc is bulging. There is moderate bilateral facet joint osteoarthritis. There is mild alpesh ateral neural foraminal stenosis. There is mild central canal stenosis. L2-L3: The disc is bulging. There is severe bilateral facet joint osteoarthritis. There is mild bilat eral neural foraminal stenosis. There is mild central canal stenosis. L3-L4: The disc is bulging. There is severe bilateral facet joint osteoarthritis. There is moderate b ilateral neural foraminal stenosis. There is mild central canal stenosis with posterior decompression . L4-L5: The disc is bulging. There is severe bilateral facet joint osteoarthritis. There is moderate b ilateral neural foraminal stenosis. There is mild central canal stenosis with posterior decompression . L5-S1: The disc is bulging. There is severe bilateral facet joint osteoarthritis. There is mild right and moderate left neural foraminal stenosis. There is mild central canal stenosis with posterior dec ompression. IMPRESSION: 1. Moderate lumbar spondylosis. 2. Lumbar levoscoliosis. Reviewed, dictated and finalized at location L.
[2022-12-28 12:46] LABS: Estimated Glomerular Filt Rate > 60
[2022-12-28 13:31] LABS: Hematocrit 37.8 % (42.0-52.0); Hemoglobin 11.9 g/dL (14.0-18.0); Mean Corpuscular HGB Conc 31.5 g/dl (32-36); Mean Corpuscular Hemoglobin 27.2 pg (26-34); Mean Corpuscular Volume 86.5 fl (80-100); Mean Platelet Volume 10.3 fl (7.4-10.4); Platelet Count Result 131 k/mm3 (150-375); Red Blood Count 4.37 M/mm3 (4.6-6.20); Red Cell Distribution Width 13.4 % (11.5-14.5); White Blood Count 7.6 K/mm3 (4.5-10.0)
[2022-12-28 13:36] LABS: Appearance Urine Clear (Clear); Bacteria Urine None Seen /hpf; Bilirubin Urine Negative (Negative); Blood Urine Negative (Negative); Color Urine Yellow (Yellow); Glucose Urine UA 3+ mg/dL (Negative); Ketones Urine Negative (Negative); Leukocyte Esterase Ur Negative LEU/UL (NEGATIVE); Nitrate Urine Negative (Negative); Non Pathogenic Casts 0-2; Protein Urine 1+ mg/dL (Negative); RBC Urine 0-2 /hpf (0-2); Squamous Epithelial Cell Urine None seen /hpf (Few); Urobilinogen Urine 0.2 mg/dL (<2.0); WBC Urine 0-5 /hpf (0-3); pH Urine 6.5 (5.0-9.0)
[2022-12-28 13:41] LABS: Specific Grav Ur 1.052 (1.001-1.035)
[2022-12-28 13:45] LABS: Alanine Aminotransferase 19 U/L (6-50); Albumin Level 4.1 g/dL (3.5-5.1); Alkaline Phosphatase 64 U/L (38-126); Anion Gap 8 mmol/L (8-16); Aspartate Amino Transferase 27 U/L (17-59); Bilirubin,Total 0.3 mg/dL (0.2-1.3); Blood Urea Nitrogen 16 mg/dL (9-20); CRP < 0.5 mg/dL (<1.0); Calcium 8.9 mg/dL (8.4-10.2); Carbon Dioxide 23 mmol/L (22-30); Chloride 104 mmol/L (98-107); Estimated Glomerular Filt Rate > 60; Glucose 283 mg/dL (65-110); Magnesium 1.9 mg/dL (1.6-2.3); Potassium 4.2 mmol/L (3.4-5.0); Sodium 135 mmol/L (137-145)
[2022-12-28 13:50] LABS: NT Pro B Type Natriuretic Pept 450 pg/mL (19.9-100)
[2022-12-28 14:17] LABS: Add Urine Microscopic? YES
== END 2022-12-28 12:05 | disposition home or self-care (01) ==
PROVIDERS: PCP Internal Medicine; Visit Provider Internal Medicine
DX: R41.82 Altered mental status, unspecified (principal); R06.00 Dyspnea, unspecified; R53.1 Weakness; M47.896 Other spondylosis, lumbar region
CPT/HCPCS: 70450; 71046; 72132; 80053; 81001; 83735; 83880; 85027; 86140; 87086; Q9967

== ENCOUNTER 2023-01-17 09:50 | Observation (INO) | payer MEDICARE, SELFPAY ==
[2023-01-17] VITALS (13 sets, daily range): BP systolic 124–159; BP diastolic 67–91; PULSE 70–86; RESP 12–24; TEMP 36.4–36.6; O2SAT 90–100; BMI 27.8
--- NOTE | ~2023-01-17 | CT_ITS ---
EXAMINATION: CT brain wo con DATE: 01/17/2023 11:20 INDICATION: Trauma. Status post multiple recent falls. TECHNIQUE: Computed tomography (CT) of the head was performed without intravenous contrast. The dose- length product was 605.33 mGy-cm. Automated exposure control and iterative reconstruction technique w ere employed. COMPARISON: CT dated 12/28/2022 FINDINGS: Generalized atrophy. There are scattered mild periventricular and subcortical white matter changes, most likely related to small vessel ischemic disease (microangiopathy). Chronic right fronta l lobe infarction. No ventriculomegaly or midline shift. No acute intracranial hemorrhage, infarction , mass or mass effect. There are changes of left-sided craniotomy. There is mucosal thickening of the eighth white sinuses. Mastoids are pneumatized. IMPRESSION: 1. No acute intracranial abnormality. 2: Chronic right frontal lobe infarction. 3: Ethmoid sinusitis. Reviewed, dictated and finalized at location B.
--- NOTE | ~2023-01-17 | US_ITS ---
EXAMINATION:US venous doppler LE BI INDICATION:Bilateral lower extremity swelling TECHNIQUE: Multiple grayscale, color flow and Doppler images of the right and left lower extremity de ep venous systems were obtained and reviewed. COMPARISON:06/19/2022 FINDINGS: The common femoral, superficial femoral and popliteal veins demonstrate normal respiratory variation, augmentation and compressibility. Color flow is also seen within the posterior tibial, pe roneal, greater saphenous and profunda veins. IMPRESSION: 1: No lower extremity deep venous thrombosis. Reviewed, dictated and finalized at location L.
--- NOTE | ~2023-01-17 | CT_ITS ---
EXAMINATION: CT femur RT w con DATE: 01/17/2023 11:20 INDICATION: Right thigh pain. Injury. TECHNIQUE: Computed tomography (CT) of the right femur was performed with 100 mL Omnipaque 350 intrav enous contrast. Automated exposure control and iterative reconstruction technique were employed. The dose-length product was 1221.13 mGy-cm. COMPARISON: None FINDINGS: Bone alignment is normal. No fracture. There is moderate lumbar spondylosis. There are lami nectomies of lumbar spine. 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 There is moderate right hip osteoarthritis. There is a mildly enlarged right external iliac lymph node, likely reactiv e. The prostate is mildly enlarged. There is no significant arterial occlusive disease. In the distal thigh medially, there is an ill-defined intramuscular hematoma with 5 mm pseudoaneurysm opacified by contrast. IMPRESSION: 1. Ill-defined intramuscular hematoma in distal medial thigh with 5 mm pseudoaneurysm opacified by co ntrast. Reviewed, dictated and finalized at location A. IMPRESSION: 1. Ill-defined intramuscular hematoma in distal medial thigh with 5 mm pseudoan eurysm opacified by contrast.
[2023-01-17] MEDS: MORPHINE SULFATE (*CRX) 4 MG/ML INJ IV PUSH ×2 (10:25→12:29)
[2023-01-17 10:46] LABS: Basophils Absolute Auto 0.1 K/mm3 (0.0-0.1); Basophils Percent Auto 0.9 % (0.2-1.2); Eosinophils Absolute Auto 0.2 K/mm3 (0-0.3); Eosinophils Percent Auto 2.8 % (0-4.4); Hematocrit 38.5 % (42.0-52.0); Hemoglobin 11.8 g/dL (14.0-18.0); Immature Granulocyte Absolute 0.03 K/mm3 (0.00-0.031); Immature Granulocyte Percent A 0.4 % (0-0.5); Lymphocytes Absolute Auto 1.82 K/mm3 (0.9-3.2); Lymphocytes Percent Auto 24.7 % (18.3-44.2); Mean Corpuscular HGB Conc 30.6 g/dl (32-36); Mean Corpuscular Hemoglobin 26.5 pg (26-34); Mean Corpuscular Volume 86.3 fl (80-100); Mean Platelet Volume 11.8 fl (7.4-10.4); Monocytes Absolute Auto 0.5 K/mm3 (0.1-0.6); Monocytes Percent Auto 6.6 % (2.6-8.5); Neutrophils Absolute Auto 4.8 K/mm3 (1.3-6.7); Neutrophils Percent Auto 64.6 % (45.5-73.1); Platelet Count Result 104 k/mm3 (150-375); Red Blood Count 4.46 M/mm3 (4.6-6.20); Red Cell Distribution Width 14.5 % (11.5-14.5); White Blood Count 7.4 K/mm3 (4.5-10.0)
[2023-01-17 10:59] LABS: Alanine Aminotransferase 19 U/L (6-50); Albumin Level 4.2 g/dL (3.5-5.1); Alkaline Phosphatase 77 U/L (38-126); Anion Gap 9 mmol/L (8-16); Aspartate Amino Transferase 29 U/L (17-59); Bilirubin,Total 0.4 mg/dL (0.2-1.3); Blood Urea Nitrogen 21 mg/dL (9-20); Calcium 8.9 mg/dL (8.4-10.2); Carbon Dioxide 20 mmol/L (22-30); Chloride 108 mmol/L (98-107); Estimated CRCL calculation 59 ml/min; Estimated Glomerular Filt Rate > 60; Glucose 175 mg/dL (65-110); Potassium 4.7 mmol/L (3.4-5.0); Sodium 137 mmol/L (137-145)
[2023-01-17 11:02] LABS: Prothrombin Time 13.9 Seconds (11.1-14.7)
--- NOTE | 2023-01-17 12:11 | ED.FALL ---
HPI - Fall General Chief Complaint: Fall Stated Complaint: fall Time Seen by Provider: 01/17/23 09:56 History of Present Illness HPI Narrative: Patient is a 72-year-old male who presents ER with recurrent falls. Patient had a back surgery from L4-S1 on November 02, 2022 at [facility]. He subsequently developed hematoma and cauda equina syndrome. Since then he has had numbness to his groin and numbness to his right leg. He is able to stool and urinate without issue. He was seen by his orthopedic spine surgeon yesterday. He was reporting pain to his right mid thigh and had an x-ray of his femur was abnormal and they ordered a CT scan for next week to better image whether he had a soft tissue tumor or a bony tumor. Patient reports when he walks he feels like his leg gives out. He tries to use a walker but is also been using a wheelchair. He has had some home physical therapy that has not been effective. Patient denies falling and striking his head or losing consciousness today. He is not on any blood thinners. He has no new back pain or injury to his back after a fall. Related Data Home Medications Medication Instructions Recorded Confirmed amlodipine 5 mg tablet 5 mg PO DAILY 08/03/22 10/03/22 aspirin 81 mg tablet 81 mg PO DAILY 08/03/22 10/03/22 atorvastatin 40 mg tablet 40 mg PO DAILY 08/03/22 10/03/22 ferrous sulfate 325 mg (65 mg 325 mg PO DAILY 08/03/22 10/03/22 iron) tablet insulin aspart U-100 100 unit/mL 5 unit subcut TIDWMEAL 08/03/22 10/03/22 (3 mL) subcutaneous pen (Novolog FlexPen U-100 Insulin aspart) insulin glargine 100 unit/mL (3 20 unit subcut DAILY 08/03/22 10/03/22 mL) subcutaneous pen (Lantus Solostar U-100 Insulin) krill oil 500 mg capsule 500 mg PO DAILY 08/03/22 10/03/22 levetiracetam 1,000 mg tablet 1,000 mg PO DIRECTED 08/03/22 10/03/22 lisinopril 20 mg tablet 20 mg PO DAILY 08/03/22 10/03/22 metformin 1,000 mg tablet 1,000 mg PO BID 08/03/22 10/03/22 multivitamin with minerals-folic 1 tablet PO DAILY 08/03/22 10/03/22 acid 0.4 mg tablet pantoprazole 40 mg tablet,delayed 40 mg PO DAILY 08/03/22 10/03/22 release zonisamide 100 mg capsule 200 mg PO HS 09/21/22 10/03/22 Allergies Allergy/AdvReac Type Severity Reaction Status Date / Time codeine Allergy Unknown Other Verified 10/03/22 08:17 empagliflozin Allergy Unknown Other Verified 10/03/22 08:17 [From [facility]iance] Review of Systems Review of Systems: All systems reviewed & are unremarkable except as noted in HPI and below Constitutional: Constitutional: Denies chills, Denies fatigue and Denies fever(s) ENT: Denies nasal congestion and Denies sore throat Cardiovascular: Cardiovascular: Denies chest pain, Denies rapid heart rate and Denies radiating jaw, neck or arm pain Gastrointestinal: Gastrointestinal: Denies abdominal pain, Denies nausea and Denies vomiting Musculoskeletal: Musculoskeletal: Reports back pain (chronic), Denies arthralgias, Denies joint swelling and Reports muscle cramps Neurologic: Denies syncope, Denies headache(s), Denies focal weakness and Reports numbness PMFSH Past Medical History Medical History (Updated 01/17/23 @ 17:39 by Jesus Dooley MD) Anemia Brain tumor Colon polyp Diabetes History of seizure disorder Hypertension Occult blood in stools Surgical History Surgical History (Updated 01/17/23 @ 17:39 by Jesus Dooley MD) History of back surgery History of brain surgery Hx of total knee arthroplasty Social History Social History Smoking status: Former smoker Tobacco type: pipe Alcohol intake: never Substance use: never Substance use type: does not use Living arrangements: with family Spiritual care concerns: No Exam Narrative: GENERAL: Well-appearing, well-nourished, and in no acute distress. HEAD: Normocephalic, atraumatic. EYES: PERRL and EOMI. ENT: Mucous membranes moist.
--- NOTE | 2023-01-17 14:00 | PC.NURSE ---
This RN attempted to ambulate pt at this time. Pt stated he was too scared to walk. MD made aware and PT/OT and care coordination consulted.
--- NOTE | 2023-01-17 15:01 | PCCCNOTE ---
Met with pt and son in ED 13. Pt currently goes to outpt PT per son. After discussing pt needs assisted living appears to be the best choice. A list of available assisted living in the area given to son. Son will reach out to assisted living facilities to determine best fit.
--- NOTE | 2023-01-17 15:24 | PC.NURSE ---
PT here to eval pt at this time.
--- NOTE | 2023-01-17 16:14 | PC.NURSE ---
Dr. Dooley speaking with pt and son about DC plans. Wants to hold off on discharging at this time.
[2023-01-17] MEDS: MORPHINE SULFATE (*CRX) 4 MG/ML INJ 2 MG IV PUSH (17:40)
--- NOTE | 2023-01-17 18:42 | ADMGEN ---
This patient, Dane Parker, was admitted to Medical Room 246-. Patient/family oriented to hospital policies and general routines including ID bracelet, bed and alarms, visiting hours, pain management, procedures, bathroom and other care routines, personal items, smoking policy, room service/diet, and visiting hours. Information on how to activate the Rapid Response Team has been discussed. Patient/Family are encouraged to report perceived risks to care and to ask questions if they do not understand what they are told or what they should do.
[2023-01-17] MEDS: HYDROcodone/acetaminophen (*CRX) 5-325 MG TABLET 1 TAB PO (20:04)
[2023-01-17 20:35] LABS: Glucose Point of Care 172 mg/dl (65-105)
--- NOTE | 2023-01-17 20:35 | PM.IMHP ---
H&P: HPI History of Present Illness Date/Time: 01/17/23 20:35 Chief Complaint: Fall Narrative: This is a 72-year-old male patient who came to the emergency room due to recurrent falls. The patient had a back surgery on November 02, 2022 L4-S1 at [facility]. The patient subsequently developed a hematoma and cauda equina syndrome. The patient has had numbness to his right growing a numbness to his right leg. The patient is now complaining of pain to his right thigh. The patient is not incontinent of bowel or bladder. The patient was seen by the orthopedic spine surgeon yesterday. The patient complains of having some drainage from the lower at portion of the surgical site. The patient stated that the surgeon is aware. The patient has not had any fever chills. The patient has been complaining pain to the right mid in the thigh and his x-ray of his femur was abnormal therefore a CT was ordered for this next week due to a soft tissue tumor or bony tumor. The patient states when he walks he feels like his leg is giving out. The patient attempts to use his walker and is also using a wheelchair. The patient lives home alone and feels that he cannot take care of himself. The patient has been falling but denies striking his head or losing consciousness. The patient is not currently on any blood thinners. He has no complaints of back pain. Femur CT was read as the following. Ill-defined intramuscular hematoma in distal medial thigh with 5 mm pseudoaneurysm opacified by contrast. Head CT was read as the following. No acute intracranial abnormality. 2: Chronic right frontal lobe infarction. 3: Ethmoid sinusitis. The patient stated that he has tried heat and ice to his right thigh without any relief. The patient was given morphine in the emergency room. According to ER noteDiscussion of Management/Consultants: [facility] orthopedic surgery (Dr. Maria) and vascular surgery (Dr. Manrique).? No recommendations for intervention.? Physical therapy has evaluated the patient recommends admission and acute inpatient rehab. Accu-Chek 172. The patient is being admitted to observation status on the date of service of 01/17/2023 Review of Systems Review of Systems: All systems reviewed & are unremarkable except as noted in HPI and below Constitutional: Constitutional: Reports as per HPI and Reports no additional constitutional complaints Eyes: Eyes: Reports as per HPI and Reports no additional eye complaints ENT: Reports system reviewed and no additional complaints, except as documented and Reports Normal hearing present Cardiovascular: Cardiovascular: Reports no additional cardiovascular complaints Respiratory: Respiratory: Reports no additional respiratory complaints and Reports no additional respiratory complaints Gastrointestinal: Gastrointestinal: Reports as per HPI and Reports no additional gastrointestinal complaints Musculoskeletal: Musculoskeletal: Reports no additional musculoskeletal complaints Integumentary/Breasts: Skin/Breast: Reports system reviewed and no additional complaints, except as docu and Reports as per HPI Neurologic: Reports system reviewed and no additional complaints, except as documented, Reports as per HPI and Reports Normal hearing present Psychiatric: Psychiatric: Reports no additional psychiatric complaints and Reports as per HPI Endocrine: Endocrine: Reports no additional endocrine complaints Hematologic/Lymphatic: Hematologic/Lymphatic: Reports no additional hematologic/lymphatic complaints Allergic/Immunologic: Allergic/Immunologic: Reports no additional allergic/immunologic complaints [facility] Past Medical History Medical History (Updated 01/18/23 @ 01:17 by Cathi Knight NP) Anemia Brain tumor Colon polyp Diabetes DM2 (diabetes mellitus, type 2) History of seizure disorder Hyperlipidemia Hypertension Neuropathy Occult blood in stools Surgical History Surgical History (Updated 01/18/23 @
[2023-01-17] MEDS: ZONISAMIDE 25 MG CAPSULE 50 MG PO (21:24)
[2023-01-17] MEDS: PREGABALIN (*CRX) 50 MG CAPSULE 300 MG BY MOUTH (21:24)
[2023-01-17] MEDS: levETIRAcetam 500 MG TABLET 1500 MG PO (21:25)
[2023-01-18] MEDS: HYDROcodone/acetaminophen (*CRX) 5-325 MG TABLET 1 TAB PO (01:22)
[2023-01-18] MEDS: MORPHINE SULFATE (*CRX) 4 MG/ML INJ 2 MG IV PUSH (04:37)
[2023-01-18 05:00] VITALS: BP 150/74; PULSE 87; RESP 18; TEMP 36.5; O2SAT 98
[2023-01-18 05:28] LABS: Basophils Absolute Auto 0.1 K/mm3 (0.0-0.1); Basophils Percent Auto 1.1 % (0.2-1.2); Eosinophils Absolute Auto 0.3 K/mm3 (0-0.3); Eosinophils Percent Auto 4.1 % (0-4.4); Hematocrit 38.5 % (42.0-52.0); Hemoglobin 11.9 g/dL (14.0-18.0); Immature Granulocyte Absolute 0.03 K/mm3 (0.00-0.031); Immature Granulocyte Percent A 0.4 % (0-0.5); Lymphocytes Absolute Auto 2.29 K/mm3 (0.9-3.2); Lymphocytes Percent Auto 31.4 % (18.3-44.2); Mean Corpuscular HGB Conc 30.9 g/dl (32-36); Mean Corpuscular Hemoglobin 26.9 pg (26-34); Mean Corpuscular Volume 86.9 fl (80-100); Mean Platelet Volume 11.8 fl (7.4-10.4); Monocytes Absolute Auto 0.5 K/mm3 (0.1-0.6); Monocytes Percent Auto 6.9 % (2.6-8.5); Neutrophils Absolute Auto 4.1 K/mm3 (1.3-6.7); Neutrophils Percent Auto 56.1 % (45.5-73.1); Platelet Count Result 111 k/mm3 (150-375); Red Blood Count 4.43 M/mm3 (4.6-6.20); Red Cell Distribution Width 14.6 % (11.5-14.5); White Blood Count 7.3 K/mm3 (4.5-10.0)
[2023-01-18 05:43] LABS: Alanine Aminotransferase 17 U/L (6-50); Albumin Level 3.9 g/dL (3.5-5.1); Alkaline Phosphatase 77 U/L (38-126); Anion Gap 4 mmol/L (8-16); Aspartate Amino Transferase 25 U/L (17-59); Bilirubin,Total 0.4 mg/dL (0.2-1.3); Blood Urea Nitrogen 18 mg/dL (9-20); Calcium 8.8 mg/dL (8.4-10.2); Carbon Dioxide 26 mmol/L (22-30); Chloride 106 mmol/L (98-107); Estimated CRCL calculation 59 ml/min; Estimated Glomerular Filt Rate > 60; Glucose 113 mg/dL (65-110); Magnesium 1.9 mg/dL (1.6-2.3); Potassium 4.1 mmol/L (3.4-5.0); Sodium 136 mmol/L (137-145)
[2023-01-18 06:27] LABS: Hemoglobin A1C 7.2 % (<5.7)
[2023-01-18] MEDS: amLODIPine BESYLATE 5 MG TABLET PO (07:59)
[2023-01-18] MEDS: PANTOPRAZOLE 40 MG TABLET PO (07:59)
[2023-01-18] MEDS: PREGABALIN (*CRX) 50 MG CAPSULE 100 MG BY MOUTH (07:59)
[2023-01-18] MEDS: ATORVASTATIN 40 MG TABLET PO (07:59)
[2023-01-18] MEDS: levETIRAcetam 500 MG TABLET 1000 MG PO (07:59)
[2023-01-18] MEDS: lisinopriL 20 MG TABLET PO (07:59)
[2023-01-18] MEDS: THERAPEUTIC MULTIVITAMINS/MINERALS TAB (*BKC) 1 TABLET PO (08:00)
[2023-01-18] MEDS: ACETAMINOPHEN 325 MG TABLET 650 MG PO ×3 (08:00→23:48)
[2023-01-18 08:33] LABS: Glucose Point of Care 120 mg/dl (65-105)
[2023-01-18] MEDS: INSULIN GLARGINE (*BKC) 100 UNITS/ML 40 UNITS SUB-Q (08:59)
--- NOTE | 2023-01-18 09:15 | PM.IMPN ---
Progress Note: A&P Assessment and Plan (1) Intramuscular hematoma: Code(s): T14.8XXA - Other injury of unspecified body region, initial encounter Status: Acute Assessment and Plan: Presented to the ED with numbness and redness to the right groin. CT of the Femur found intramuscular hematoma in the distal medial thigh No intervention noted by vascular or ortho at [facility] Stable at this time H/H 11.9/38.0 Continue to trend labs Adjust therapy as indicated (2) DM2 (diabetes mellitus, type 2): Qualifiers: Diabetes mellitus complication status: without complication Diabetes mellitus terminal operator insulin use: with terminal operator use Qualified Code(s): E11.9 - Type 2 diabetes mellitus without complications; Z79.4 - [facility]P (current) use of insulin Code(s): E11.9 - Type 2 diabetes mellitus without complications Status: Acute Assessment and Plan: Current glucose 113 Accu-Cheks AC and HS Sliding scale insulin hypoglycemic protocol A1c 7.2 Continue to trend glucose Continue home lantus (3) Hyperlipidemia: Qualifiers: Hyperlipidemia type: moderate mixed hyperlipidemia not requiring statin therapy Qualified Code(s): E78.2 - Mixed hyperlipidemia Code(s): E78.5 - Hyperlipidemia, unspecified Status: Acute Assessment and Plan: Continue with atorvastatin LFTs stable (4) Neuropathy: Code(s): G62.9 - Polyneuropathy, unspecified Status: Acute Assessment and Plan: Continue with Lyrica Stable at this time (5) Anemia: Qualifiers: Anemia type: unspecified type Qualified Code(s): D64.9 - Anemia, unspecified Code(s): D64.9 - Anemia, unspecified Status: Acute Assessment and Plan: H/H 11.9/38.5 Appears to be stable Trend h/h Transfuse if Hgb <7.0 (6) Hypertension: Qualifiers: Hypertension type: primary hypertension Qualified Code(s): I10 - Essential (primary) hypertension Code(s): I10 - Essential (primary) hypertension Status: Acute Assessment and Plan: Current BP is 97/65 Continue with lisinopril and amlodipine Trend BP Adjust therapy as indicated (7) Frequent falls: Code(s): R29.6 - Repeated falls Status: Acute Assessment and Plan: Presented to the ED with frequent falls Most likely related to physical deconditioning related to multiple surgeries PT/OT SNF placement pending Time Spent With Patient Time: 48 minutes Time with patient: Greater than 35 minutes Subjective Date/time seen: 01/18/23914 Interval history: 01/18/23914 Patient is doing ok. He stated that he is not having any chest pain, shortness of breath, nausea, vomiting, diarrhea or constipation. He did complain of not being able to fully empty, as he stated that he is not really good with using a urinal. He also stated that that the left leg is fine however, the right leg is weak. He did not complain of pain. He is wanting to work with PT. Currently awaiting SNF placement for further strengthening and endurance. 01/17/23? 20:35 This is a 72-year-old male patient who came to the emergency room due to recurrent falls.? The patient had a back surgery on November 02, 2022 L4-S1 at [facility].? The patient subsequently developed a hematoma and cauda equina syndrome.? The patient has had numbness to his right growing a numbness to his right leg.? The patient is now complaining of pain to his right thigh.? The patient is not incontinent of bowel or bladder.? The patient was seen by the orthopedic spine surgeon yesterday.? The patient complains of having some drainage from the lower at portion of the surgical site.? The patient stated that the surgeon is aware.? The patient has not had any fever chills.? The patient has been complaining pain t
--- NOTE | 2023-01-18 09:15 | P.PNIM_ITS ---
Progress Note: A&P Assessment and Plan (1) Intramuscular hematoma: Code(s): T14.8XXA - Other injury of unspecified body region, initial encounter Status: Acute Assessment and Plan: * Presented to the ED with numbness and redness to the right groin. 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 harvesting supervisor insulin use: with watermelon harvesting supervisor use Qualified Code(s): E11.9 - Type 2 diabetes mellitus without complications; Z79.4 - terminal operations supervisor (current) use of insulin Code(s): E11.9 - Type 2 diabetes mellitus without complications Status: Acute Assessment and Plan: * Current glucose 113 * Accu-Cheks AC and HS * Sliding scale insulin * hypoglycemic protocol * A1c 7.2 * Continue to trend glucose * Continue home lantus (3) Hyperlipidemia: Qualifiers: Hyperlipidemia type: moderate mixed hyperlipidemia not requiring statin therapy Qualified Code(s): E78.2 - Mixed hyperlipidemia Code(s): E78.5 - Hyperlipidemia, unspecified Status: Acute Assessment and Plan: * Continue with atorvastatin * LFTs stable (4) Neuropathy: Code(s): G62.9 - Polyneuropathy, unspecified Status: Acute Assessment and Plan: * Continue with Lyrica * Stable at this time (5) Anemia: Qualifiers: Anemia type: unspecified type Qualified Code(s): D64.9 - Anemia, unspecified Code(s): D64.9 - Anemia, unspecified Status: Acute Assessment and Plan: * H/H 11.9/38.5 * Appears to be stable * Trend h/h * Transfuse if Hgb <7.0 (6) Hypertension: Qualifiers: Hypertension type: primary hypertension Qualified Code(s): I10 - Essential (primary) hypertension Code(s): I10 - Essential (primary) hypertension Status: Acute Assessment and Plan: * Current BP is 97/65 * Continue with lisinopril and amlodipine * Trend BP * Adjust therapy as indicated (7) Frequent falls: Code(s): R29.6 - Repeated falls Status: Acute Assessment and Plan: * Presented to the ED with frequent falls * Most likely related to physical deconditioning related to multiple surgeries * PT/OT * SNF placement pending Time Spent With Patient Time: 48 minutes Time with patient: Greater than 35 minutes Subjective Date/time seen: 01/18/23914 Interval history: 01/18/23914 Patient is doing ok. He stated that he is not having any chest pain, shortness of breath, nausea, vomiting, diarrhea or constipation. He did complain of not being able to fully empty, as he stated that he is not really good with using a urinal. He also stated that that the left leg is fine however, the right leg is weak. He did not complain of pain. He is wanting to work with PT. Currently awaiting SNF placement for further strengthening and endurance. 01/17/23? 20:35 This is a 72-year-old male patient who came to the emergency room due to
--- NOTE | 2023-01-18 09:44 | PCOTNOTE ---
Attempted to see pt. for occupational therapy evaluation. Pt. away from room at this time for testing, nursing aware. Following.
[2023-01-18] MEDS: LACOSAMIDE (*CRX) 100 MG TABLET PO (10:31)
[2023-01-18 11:26] VITALS: BMI 27.8
[2023-01-18 11:43] VITALS: BP 97/65; PULSE 100; RESP 18; O2SAT 98
[2023-01-18 11:46] LABS: Glucose Point of Care 189 mg/dl (65-105)
[2023-01-18 15:01] VITALS: BP 117/55; PULSE 80; RESP 18; TEMP 36.6; O2SAT 99
[2023-01-18 17:12] LABS: Glucose Point of Care 167 mg/dl (65-105)
[2023-01-18] MEDS: PREGABALIN (*CRX) 50 MG CAPSULE 300 MG BY MOUTH (19:48)
[2023-01-18] MEDS: ZONISAMIDE 25 MG CAPSULE 50 MG PO (19:49)
[2023-01-18] MEDS: levETIRAcetam 500 MG TABLET 1500 MG PO (19:49)
[2023-01-18 20:05] LABS: Glucose Point of Care 221 mg/dl (65-105)
[2023-01-18 20:45] VITALS: BP 111/51; PULSE 78; RESP 17; TEMP 36.8; O2SAT 98
[2023-01-18] MEDS: INSULIN ASPART (*BKC) 100 UNITS/ML SUB-Q (20:58)
[2023-01-19] MEDS: HYDROcodone/acetaminophen (*CRX) 5-325 MG TABLET 1 TAB PO (02:40)
[2023-01-19 03:41] VITALS: BP 133/62; PULSE 78; RESP 20; TEMP 36.2; O2SAT 97
[2023-01-19 05:50] LABS: Hematocrit 35.1 % (42.0-52.0); Hemoglobin 10.7 g/dL (14.0-18.0); Mean Corpuscular HGB Conc 30.5 g/dl (32-36); Mean Corpuscular Hemoglobin 26.2 pg (26-34); Mean Platelet Volume 12.5 fl (7.4-10.4); Platelet Count Result 108 k/mm3 (150-375); Red Blood Count 4.08 M/mm3 (4.6-6.20); Red Cell Distribution Width 14.8 % (11.5-14.5); White Blood Count 7.8 K/mm3 (4.5-10.0)
[2023-01-19 06:00] LABS: Alanine Aminotransferase 14 U/L (6-50); Albumin Level 3.8 g/dL (3.5-5.1); Alkaline Phosphatase 71 U/L (38-126); Anion Gap 6 mmol/L (8-16); Aspartate Amino Transferase 25 U/L (17-59); Bilirubin,Total 0.5 mg/dL (0.2-1.3); Blood Urea Nitrogen 32 mg/dL (9-20); Calcium 8.8 mg/dL (8.4-10.2); Carbon Dioxide 27 mmol/L (22-30); Chloride 104 mmol/L (98-107); Estimated CRCL calculation 50 ml/min; Estimated Glomerular Filt Rate 60; Glucose 111 mg/dL (65-110); Magnesium 1.9 mg/dL (1.6-2.3); Potassium 4.5 mmol/L (3.4-5.0); Sodium 137 mmol/L (137-145)
--- NOTE | 2023-01-19 07:04 | P.PNIM_ITS ---
Progress Note: A&P Assessment and Plan (1) Intramuscular hematoma: Code(s): T14.8XXA - Other injury of unspecified body region, initial encounter Status: Acute Assessment and Plan: * Presented to the ED with numbness and redness to the right groin. * CT of the Femur found intramuscular hematoma in the distal medial thigh * No intervention noted by vascular or ortho at [facility] * Stable at this time * H/H 10.7/35.1 * Continue to trend labs * Adjust therapy as indicated * Stable (2) DM2 (diabetes mellitus, type 2): Qualifiers: Diabetes mellitus penitentiary insulin use: with manager intermediate use Diabetes mellitus complication status: without complication Qualified Code(s): E11.9 - Type 2 diabetes mellitus without complications; Z79.4 - [facility] (current) use of insulin Code(s): E11.9 - Type 2 diabetes mellitus without complications Status: Acute Assessment and Plan: * Current glucose 111 * Accu-Cheks AC and HS * Sliding scale insulin * hypoglycemic protocol * A1c 7.2 * Continue to trend glucose * Continue home lantus (3) Hyperlipidemia: Qualifiers: Hyperlipidemia type: moderate mixed hyperlipidemia not requiring statin therapy Qualified Code(s): E78.2 - Mixed hyperlipidemia Code(s): E78.5 - Hyperlipidemia, unspecified Status: Acute Assessment and Plan: * Continue with atorvastatin * LFTs stable (4) Neuropathy: Code(s): G62.9 - Polyneuropathy, unspecified Status: Acute Assessment and Plan: * Continue with Lyrica * Stable at this time (5) Anemia: Qualifiers: Anemia type: unspecified type Qualified Code(s): D64.9 - Anemia, unspecified Code(s): D64.9 - Anemia, unspecified Status: Acute Assessment and Plan: * H/H currently 10.7/35.1 * Appears to be stable * Trend h/h * Transfuse if Hgb <7.0 (6) Hypertension: Qualifiers: Hypertension type: primary hypertension Qualified Code(s): I10 - Essential (primary) hypertension Code(s): I10 - Essential (primary) hypertension Status: Acute Assessment and Plan: * Current BP is 133/62 * Continue with lisinopril and amlodipine * Trend BP * Adjust therapy as indicated (7) Frequent falls: Code(s): R29.6 - Repeated falls Status: Acute Assessment and Plan: * Presented to the ED with frequent falls * Most likely related to physical deconditioning related to multiple surgeries * PT/OT * SNF placement pending Plan BUN/Cr elevated at 32/1.20 Baseline 0.8-1.0 trending up Could be related to dehydration Continue to trend labs encourage PO intake Time Spent With Patient Time: 48 minutes Time with patient: Greater than 35 minutes Subjective Date/time seen: 01/19/23 07:04 Interval history: 01/19/23 01/18/23 0915 Patient is doing ok. He stated that he is not having any chest pain, shortness of breath, nausea, vomiting, diarrhea or constipation. He did complain of not being able to fully empty, as he stated that he is not really good with using a urinal. He also stated that that the left leg is fine however, the right leg is weak. He did not
--- NOTE | 2023-01-19 07:04 | PM.IMPN ---
Progress Note: A&P Assessment and Plan (1) Intramuscular hematoma: Code(s): T14.8XXA - Other injury of unspecified body region, initial encounter Status: Acute Assessment and Plan: Presented to the ED with numbness and redness to the right groin. CT of the Femur found intramuscular hematoma in the distal medial thigh No intervention noted by vascular or ortho at [facility] Stable at this time H/H 10.7/35.1 Continue to trend labs Adjust therapy as indicated Stable (2) DM2 (diabetes mellitus, type 2): Qualifiers: Diabetes mellitus sign writer letterer or painter insulin use: with sign writer letterer or painter use Diabetes mellitus complication status: without complication Qualified Code(s): E11.9 - Type 2 diabetes mellitus without complications; Z79.4 - teacher counselor (current) use of insulin Code(s): E11.9 - Type 2 diabetes mellitus without complications Status: Acute Assessment and Plan: Current glucose 111 Accu-Cheks AC and HS Sliding scale insulin hypoglycemic protocol A1c 7.2 Continue to trend glucose Continue home lantus (3) Hyperlipidemia: Qualifiers: Hyperlipidemia type: moderate mixed hyperlipidemia not requiring statin therapy Qualified Code(s): E78.2 - Mixed hyperlipidemia Code(s): E78.5 - Hyperlipidemia, unspecified Status: Acute Assessment and Plan: Continue with atorvastatin LFTs stable (4) Neuropathy: Code(s): G62.9 - Polyneuropathy, unspecified Status: Acute Assessment and Plan: Continue with Lyrica Stable at this time (5) Anemia: Qualifiers: Anemia type: unspecified type Qualified Code(s): D64.9 - Anemia, unspecified Code(s): D64.9 - Anemia, unspecified Status: Acute Assessment and Plan: H/H currently 10.7/35.1 Appears to be stable Trend h/h Transfuse if Hgb <7.0 (6) Hypertension: Qualifiers: Hypertension type: primary hypertension Qualified Code(s): I10 - Essential (primary) hypertension Code(s): I10 - Essential (primary) hypertension Status: Acute Assessment and Plan: Current BP is 133/62 Continue with lisinopril and amlodipine Trend BP Adjust therapy as indicated (7) Frequent falls: Code(s): R29.6 - Repeated falls Status: Acute Assessment and Plan: Presented to the ED with frequent falls Most likely related to physical deconditioning related to multiple surgeries PT/OT SNF placement pending Plan BUN/Cr elevated at 32/1.20 Baseline 0.8-1.0 trending up Could be related to dehydration Continue to trend labs encourage PO intake Time Spent With Patient Time: 48 minutes Time with patient: Greater than 35 minutes Subjective Date/time seen: 01/19/23 07:04 Interval history: 01/19/23 01/18/23 0915 Patient is doing ok. He stated that he is not having any chest pain, shortness of breath, nausea, vomiting, diarrhea or constipation. He did complain of not being able to fully empty, as he stated that he is not really good with using a urinal. He also stated that that the left leg is fine however, the right leg is weak. He did not complain of pain. He is wanting to work with PT. Currently awaiting SNF placement for further strengthening and endurance. 01/17/23? 20:35 This is a 72-year-old male patient who came to the emergency room due to recurrent falls.? The patient had a back surgery on November 02, 2022 L4-S1 at [facility].? The patient subsequently developed a hematoma and cauda equina syndrome.? The patient has had numbness to his right growing a numbness to his right leg.? The patient is now complaining of pain to his right thigh.? The patient is not incontinent of bowel or bladder.? The patient was seen by the orthopedic spine surgeon yesterday.? The patient complains of having some
[2023-01-19 08:43] LABS: Glucose Point of Care 133 mg/dl (65-105)
[2023-01-19] MEDS: PREGABALIN (*CRX) 50 MG CAPSULE 100 MG BY MOUTH (08:47)
[2023-01-19] MEDS: amLODIPine BESYLATE 5 MG TABLET PO (08:47)
[2023-01-19] MEDS: PANTOPRAZOLE 40 MG TABLET PO (08:47)
[2023-01-19] MEDS: ATORVASTATIN 40 MG TABLET PO (08:48)
[2023-01-19] MEDS: THERAPEUTIC MULTIVITAMINS/MINERALS TAB (*BKC) 1 TABLET PO (08:48)
[2023-01-19] MEDS: ACETAMINOPHEN 325 MG TABLET 650 MG PO (08:48)
[2023-01-19] MEDS: LACOSAMIDE (*CRX) 100 MG TABLET PO (08:48)
[2023-01-19] MEDS: lisinopriL 20 MG TABLET PO (08:48)
[2023-01-19] MEDS: levETIRAcetam 500 MG TABLET 1000 MG PO (08:49)
[2023-01-19] MEDS: ENOXAPARIN 40 MG/0.4 ML SYRINGE SUB-Q (08:49)
[2023-01-19] MEDS: INSULIN GLARGINE (*BKC) 100 UNITS/ML 40 UNITS SUB-Q (08:51)
[2023-01-19 08:52] VITALS: RESP 20; O2SAT 97
--- NOTE | 2023-01-19 10:00 | P.DS_ITS ---
DS: Admitting Diagnosis Discharge Date 01/19/23 1000 Admitting Diagnosis Generalized weakness, frequent falls DS: Discharge Diagnosis Discharge Diagnosis (1) Intramuscular hematoma: Code(s): T14.8XXA - Other injury of unspecified body region, initial encounter Status: Acute Assessment and Plan: * Presented to the ED with numbness and redness to the right groin. * CT of the Femur found intramuscular hematoma in the distal medial thigh * No intervention noted by vascular or ortho at [facility] * Stable at this time * H/H 10.7/35.1 * Continue to trend labs * Adjust therapy as indicated * Stable (2) DM2 (diabetes mellitus, type 2): Qualifiers: Diabetes mellitus complication status: without complication Diabetes mellitus supervisor intermediates insulin use: with supervisor intermediates use Qualified Code(s): E11.9 - Type 2 diabetes mellitus without complications; Z79.4 - terminal carman (current) use of insulin Code(s): E11.9 - Type 2 diabetes mellitus without complications Status: Acute Assessment and Plan: * Current glucose 111 * Accu-Cheks AC and HS * Sliding scale insulin * hypoglycemic protocol * A1c 7.2 * Continue to trend glucose * Continue home lantus (3) Hyperlipidemia: Qualifiers: Hyperlipidemia type: moderate mixed hyperlipidemia not requiring statin therapy Qualified Code(s): E78.2 - Mixed hyperlipidemia Code(s): E78.5 - Hyperlipidemia, unspecified Status: Acute Assessment and Plan: * Continue with atorvastatin * LFTs stable (4) Neuropathy: Code(s): G62.9 - Polyneuropathy, unspecified Status: Acute Assessment and Plan: * Continue with Lyrica * Stable at this time (5) Anemia: Qualifiers: Anemia type: unspecified type Qualified Code(s): D64.9 - Anemia, unspecified Code(s): D64.9 - Anemia, unspecified Status: Acute Assessment and Plan: * H/H currently 10.7/35.1 * Appears to be stable * Trend h/h * Transfuse if Hgb <7.0 (6) Hypertension: Qualifiers: Hypertension type: primary hypertension Qualified Code(s): I10 - Essential (primary) hypertension Code(s): I10 - Essential (primary) hypertension Status: Acute Assessment and Plan: * Current BP is 133/62 * Continue with lisinopril and amlodipine * Trend BP * Adjust therapy as indicated (7) Frequent falls: Code(s): R29.6 - Repeated falls Status: Acute Assessment and Plan: * Presented to the ED with frequent falls * Most likely related to physical deconditioning related to multiple surgeries * PT/OT * SNF placement pending Plan BUN/Cr elevated at 32/1.20 Baseline 0.8-1.0 trending up Could be related to dehydration Continue to trend labs encourage PO intake DS: Summary Hospital Course Hospital Course: patient is a 72-year-old male with past medical history of multiple back surgeries, diabetes, seizure disorder, hyperlipidemia, hypertension who presente d the ED with reports of frequent fall the patient has had multiple back surgeries. patient was at home and he kept falling. Patient did come in and was found that he had a hematoma on his right leg. He denies any current ches
--- NOTE | 2023-01-19 10:00 | PM.DS ---
DS: Admitting Diagnosis Discharge Date 01/19/23 1000 Admitting Diagnosis Generalized weakness, frequent falls DS: Discharge Diagnosis Discharge Diagnosis (1) Intramuscular hematoma: Code(s): T14.8XXA - Other injury of unspecified body region, initial encounter Status: Acute Assessment and Plan: Presented to the ED with numbness and redness to the right groin. CT of the Femur found intramuscular hematoma in the distal medial thigh No intervention noted by vascular or ortho at [facility] Stable at this time H/H 10.7/35.1 Continue to trend labs Adjust therapy as indicated Stable (2) DM2 (diabetes mellitus, type 2): Qualifiers: Diabetes mellitus complication status: without complication Diabetes mellitus saw edge fuser circular insulin use: with saw edge fuser circular use Qualified Code(s): E11.9 - Type 2 diabetes mellitus without complications; Z79.4 - fax machine operator (current) use of insulin Code(s): E11.9 - Type 2 diabetes mellitus without complications Status: Acute Assessment and Plan: Current glucose 111 Accu-Cheks AC and HS Sliding scale insulin hypoglycemic protocol A1c 7.2 Continue to trend glucose Continue home lantus (3) Hyperlipidemia: Qualifiers: Hyperlipidemia type: moderate mixed hyperlipidemia not requiring statin therapy Qualified Code(s): E78.2 - Mixed hyperlipidemia Code(s): E78.5 - Hyperlipidemia, unspecified Status: Acute Assessment and Plan: Continue with atorvastatin LFTs stable (4) Neuropathy: Code(s): G62.9 - Polyneuropathy, unspecified Status: Acute Assessment and Plan: Continue with Lyrica Stable at this time (5) Anemia: Qualifiers: Anemia type: unspecified type Qualified Code(s): D64.9 - Anemia, unspecified Code(s): D64.9 - Anemia, unspecified Status: Acute Assessment and Plan: H/H currently 10.7/35.1 Appears to be stable Trend h/h Transfuse if Hgb <7.0 (6) Hypertension: Qualifiers: Hypertension type: primary hypertension Qualified Code(s): I10 - Essential (primary) hypertension Code(s): I10 - Essential (primary) hypertension Status: Acute Assessment and Plan: Current BP is 133/62 Continue with lisinopril and amlodipine Trend BP Adjust therapy as indicated (7) Frequent falls: Code(s): R29.6 - Repeated falls Status: Acute Assessment and Plan: Presented to the ED with frequent falls Most likely related to physical deconditioning related to multiple surgeries PT/OT SNF placement pending Plan BUN/Cr elevated at 32/1.20 Baseline 0.8-1.0 trending up Could be related to dehydration Continue to trend labs encourage PO intake DS: Summary Hospital Course Hospital Course: patient is a 72-year-old male with past medical history of multiple back surgeries, diabetes, seizure disorder, hyperlipidemia, hypertension who presented the ED with reports of frequent fall the patient has had multiple back surgeries. patient was at home and he kept falling. Patient did come in and was found that he had a hematoma on his right leg. He denies any current chest pain, shortness a breath, nausea, vomiting, diarrhea constipation. Hemoglobin hematocrit are stable at this time. Blood sugar has been normal throughout the entire visit. PT and OT did recommend SNF placement at this time. Labs and vital signs remained stable today patient is stable for discharge. Status at Discharge Functional status at discharge: uses cane/walker Overall status at discharge: patient is progressing back to baseline Time Spent with Patient Time attestation: Total time spent providing and/or coordinating discharge services: 43 minutes Time spent: Greater than 30 minutes Specific discharge activities: Diagnostic testing, hillary
[2023-01-19 11:52] LABS: Glucose Point of Care 193 mg/dl (65-105)
== END 2023-01-19 14:15 ==
LOC: ANHED 16:43 → ANH2MED 18:51
PROVIDERS: Nurse Practitioner; Admitting Provider Chiropractor; Emergency Provider Emergency Medicine; PCP Internal Medicine; Visit Provider Chiropractor
DX: T14.8XXA Other injury of unspecified body region, initial encounter (principal); G83.4 Cauda equina syndrome; Z48.811 Encounter for surgical aftercare following surgery on the nervous system; D64.9 Anemia, unspecified; E11.42 Type 2 diabetes mellitus with diabetic polyneuropathy; E78.2 Mixed hyperlipidemia; I10 Essential (primary) hypertension; R29.6 Repeated falls; S70.10XA Contusion of unspecified thigh, initial encounter; J32.2 Chronic ethmoidal sinusitis; I72.8 Aneurysm of other specified arteries; M62.81 Muscle weakness (generalized); M79.661 Pain in right lower leg; Z99.89 Dependence on other enabling machines and devices; F12.90 Cannabis use, unspecified, uncomplicated; Z87.891 Personal history of nicotine dependence; Z86.73 Personal history of transient ischemic attack (TIA), and cerebral infarction without residual deficits; Z79.82 Long term (current) use of aspirin; Z79.4 Long term (current) use of insulin; Z79.84 Long term (current) use of oral hypoglycemic drugs; Z79.899 Other long term (current) drug therapy
CPT/HCPCS: 36415; 70450; 73701; 80053; 82948; 83036; 83735; 85025; 85027; 85610; 85730; 93970; 96372; 96374; 96376; 97110; 97161; 97165; 97530; 97535; 99291; A9270; G0378; J1650; J1815; J2270; Q9967

== ENCOUNTER 2023-03-27 14:29 | Outpatient (CLI) | payer MEDICARE, SELFPAY ==
[2023-03-27 14:45] LABS: Basophils Absolute Auto 0.1 K/mm3 (0.0-0.1); Basophils Percent Auto 0.7 % (0.2-1.2); Eosinophils Absolute Auto 0.2 K/mm3 (0-0.3); Eosinophils Percent Auto 2.5 % (0-4.4); Immature Granulocyte Absolute 0.02 K/mm3 (0.00-0.031); Immature Granulocyte Percent A 0.3 % (0-0.5); Lymphocytes Absolute Auto 2.03 K/mm3 (0.9-3.2); Lymphocytes Percent Auto 30.1 % (18.3-44.2); Mean Corpuscular HGB Conc 30.8 g/dl (32-36); Mean Corpuscular Hemoglobin 25.9 pg (26-34); Mean Corpuscular Volume 84.1 fl (80-100); Mean Platelet Volume 11.8 fl (7.4-10.4); Monocytes Absolute Auto 0.4 K/mm3 (0.1-0.6); Monocytes Percent Auto 6.1 % (2.6-8.5); Neutrophils Absolute Auto 4.1 K/mm3 (1.3-6.7); Neutrophils Percent Auto 60.3 % (45.5-73.1); Platelet Count Result 86 k/mm3 (150-375); Red Blood Count 4.64 M/mm3 (4.6-6.20); Red Cell Distribution Width 13.8 % (11.5-14.5); White Blood Count 6.8 K/mm3 (4.5-10.0)
[2023-03-27 17:16] LABS: Iron 32 ug/dL (49-181)
[2023-03-27 17:28] LABS: Alanine Aminotransferase 23 U/L (6-50); Alkaline Phosphatase 50 U/L (38-126); Anion Gap 12 mmol/L (8-16); Aspartate Amino Transferase 37 U/L (17-59); Bilirubin,Total 0.4 mg/dL (0.2-1.3); Blood Urea Nitrogen 17 mg/dL (9-20); Calcium 8.7 mg/dL (8.4-10.2); Carbon Dioxide 19 mmol/L (22-30); Chloride 109 mmol/L (98-107); Estimated Glomerular Filt Rate > 60; Glucose 154 mg/dL (65-110); Percent Iron Saturation 9 % (20-50); Potassium 4.1 mmol/L (3.4-5.0); Sodium 140 mmol/L (137-145)
[2023-03-27 18:34] LABS: Folic Acid > 20.0 ng/mL (2.76->20)
[2023-03-30 09:02] LABS: Methylmalonic Acid 119 nmol/L (87-318)
[2023-03-31 18:26] LABS: Soluble Transferrin Receptor 2.14 mg/L (0.76-1.76)
== END 2023-03-27 14:30 | disposition home or self-care (01) ==
LOC: ANHLAB 14:31
PROVIDERS: PCP Internal Medicine; Visit Provider Internal Medicine Hematology & Oncology
DX: D75.838 Other thrombocytosis (principal); D64.9 Anemia, unspecified
CPT/HCPCS: 36415; 80053; 82607; 82728; 82746; 83540; 83550; 83921; 84238; 85025

== ENCOUNTER 2023-04-07 00:36 | Emergency (ER) | payer MEDICARE, SELFPAY ==
--- NOTE | ~2023-04-07 | CT_ITS ---
EXAMINATION: CT lumbar spine wo con DATE: 04/07/2023 01:44 INDICATION: Back pain. TECHNIQUE: Computed tomography (CT) of the lumbar spine was performed without intravenous contrast. A utomated exposure control and iterative reconstruction technique were employed. The dose-length produ ct was 1404.31 mGy-cm. COMPARISON: CT lumbar spine 12/28/2022 FINDINGS: There is 13 degrees levoscoliosis of lumbar spine. There is a chronic compression fracture of L1. There is 3 mm retrolisthesis of L2 on L3. There is severely decreased disc height at T11-T12, mildly decreased disc height at L1-L2, moderately decreased disc height at L2-L3, and mildly decrease d disc height at L4-L5 and L5-S1. There are laminectomies from L3 to L5. The following disc levels ar e specifically discussed: L1-L2: The disc is bulging. There is moderate bilateral facet joint osteoarthritis. There is moderate right and mild left neural foraminal stenosis. There is no central canal stenosis. L2-L3: The disc is bulging. There is severe bilateral facet joint osteoarthritis. There is moderate b ilateral neural foraminal stenosis. There is mild central canal stenosis with posterior decompression . L3-L4: The disc is bulging. There is severe bilateral facet joint osteoarthritis. There is moderate b ilateral neural foraminal stenosis. There is mild central canal stenosis with posterior decompression . L4-L5: The disc is bulging. There is severe bilateral facet joint osteoarthritis. There is moderate b ilateral neural foraminal stenosis. There is mild central canal stenosis with posterior decompression . L5-S1: The disc is bulging. There is severe bilateral facet joint osteoarthritis. There is mild bilat eral neural foraminal stenosis. There is mild central canal stenosis with posterior decompression. IMPRESSION: 1. Moderate lumbar spondylosis and severe lower thoracic spondylosis, stable from 12/28/2022. 2. Lumbar levoscoliosis. Reviewed, dictated and finalized at location A. 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 Moderate lumbar spondylosis and severe lower thoracic spondylosis, stable fr om 12/28/2022. 2. Lumbar levoscoliosis.
[2023-04-07 00:34] VITALS: BP 189/90; PULSE 79; RESP 18; O2SAT 98
[2023-04-07 00:43] VITALS: BP 189/90; PULSE 81; RESP 18; O2SAT 96
[2023-04-07] MEDS: KETOROLAC 15 MG/ML VIAL (*BKC) IV PUSH (01:46)
[2023-04-07] MEDS: ORPHENADRINE CITRATE 100 MG TABLET.ER PO (01:47)
[2023-04-07 02:30] VITALS: BP 155/80; PULSE 68; O2SAT 97
--- NOTE | 2023-04-07 02:59 | ED.GENADULT ---
HPI - General Adult General Chief complaint: Back Pain/Injury Stated complaint: BACK PAIN Time Seen by Provider: 04/07/23 01:00 History of Present Illness HPI narrative: Patient 73-year-old gentleman who presents the emergency department with chief complaint of left lower extremity pain. Patient reports that he has had issues with back pain has had laminectomies before in the past and reports that he is currently going through rehab patient states he lost his footing or fell because of his right leg getting weak and reports that he has been having pain down his left leg since then. Patient states he does have some tingling down the leg denies bowel or bladder dysfunction denies saddle anesthesia Related Data Home Medications Medication Instructions Recorded Confirmed amlodipine 5 mg tablet 5 mg PO DAILY 08/03/22 01/17/23 atorvastatin 40 mg tablet 40 mg PO DAILY 08/03/22 01/17/23 insulin aspart U-100 100 unit/mL 11 unit subcut TIDWMEAL 08/03/22 01/17/23 (3 mL) subcutaneous pen (Novolog FlexPen U-100 Insulin aspart) insulin glargine 100 unit/mL (3 40 unit subcut DAILY 08/03/22 01/17/23 mL) subcutaneous pen (Lantus Solostar U-100 Insulin) lisinopril 20 mg tablet 20 mg PO DAILY 08/03/22 01/17/23 multivitamin with minerals-folic 1 tablet PO DAILY 08/03/22 01/17/23 acid 0.4 mg tablet pantoprazole 40 mg tablet,delayed 40 mg PO DAILY 08/03/22 01/17/23 release zonisamide 100 mg capsule 50 mg PO HS 09/21/22 01/17/23 lacosamide 100 mg tablet 100 mg PO DAILY 01/17/23 01/17/23 Allergies Allergy/AdvReac Type Severity Reaction Status Date / Time codeine AdvReac Unknown Hyperactive Verified 01/17/23 19:02 empagliflozin AdvReac Unknown Other Verified 01/17/23 19:02 [From Jardiance] Review of Systems Review of Systems: A 10 system review of systems was completed on the patient and is negative except for what is stated in the HPI. Nursing and ancillary documentation was reviewed. [facility] Past Medical History Medical History Anemia Brain tumor Colon polyp Diabetes DM2 (diabetes mellitus, type 2) History of seizure disorder Hyperlipidemia Hypertension Neuropathy Occult blood in stools Surgical History Surgical History H/O colonoscopy with polypectomy L4 through S1 on November 02, 2022 History of back surgery History of brain surgery Hx of total knee arthroplasty Bilaterally Family History Family History Unknown No problems noted. Social History Social History Social History: The patient lives home alone and has 2 children. 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 Code status full code. Smoking status: Never smoker Tobacco type: pipe Alcohol intake: never Substance use: current Substance use type: marijuana Other substance usage details: CBD Gummies Last use: 01/15/23 Lack of Transportation: No Lack of Food: Never True Current Housing: I Have Housing Concerned About Future Housing: No Difficulty Paying Gas/Electric Bills: No Difficulty Paying for Meds: No Currently Unemployed: No Education: High School Diploma/GED Difficulty w/ Childcare or Family Care: No Living arrangements: with family Spiritual care concerns: No Exam Narrative: GENERAL: Well-appearing, well-nourished, and in no acute distress. HEAD: Normocephalic, atraumatic. EYES: PERRLA and EOMI. ENT: Nares clear, no rhinorrhea or epistaxis. Mucous membranes moist. NECK: Supple. CHEST: Clear to auscultation. No respiratory distress. HEART: Regular rate and rhythm. No murmur heard. Normal peripheral pulses. ABDOMEN: Soft, nontender, nondistended, normal active bowel sounds. EXTREMITIES: Normal range of motion. No
[2023-04-07] MEDS: MORPHINE SULFATE (*CRX) 2 MG/ML INJ IV PUSH (04:06)
[2023-04-07 04:30] VITALS: BP 173/94; PULSE 76; O2SAT 98
[2023-04-07] MEDS: HYDROmorphone HCL INJ (*CRX) 1 MG/ML SYR IV PUSH (04:54)
== END 2023-04-07 06:25 | disposition home or self-care (01) ==
PROVIDERS: Emergency Provider Emergency Medicine; PCP Internal Medicine
DX: M54.42 Lumbago with sciatica, left side (principal); I10 Essential (primary) hypertension; E78.5 Hyperlipidemia, unspecified; E11.40 Type 2 diabetes mellitus with diabetic neuropathy, unspecified; G40.909 Epilepsy, unspecified, not intractable, without status epilepticus; Z86.010 Personal history of colon polyps; Z86.2 Personal history of diseases of the blood and blood-forming organs and certain disorders involving the immune mechanism; Z96.653 Presence of artificial knee joint, bilateral; Z79.4 Long term (current) use of insulin; M47.816 Spondylosis without myelopathy or radiculopathy, lumbar region; M47.814 Spondylosis without myelopathy or radiculopathy, thoracic region
CPT/HCPCS: 72131; 96374; 96375; 99284; A9270; J1100; J1170; J1885; J2270

== ENCOUNTER 2023-04-12 11:09 | Outpatient (CLI) | payer MEDICARE, SELFPAY ==
--- NOTE | ~2023-04-12 | US_ITS ---
Limited Abdominal Sonogram: Real-time sonographic imaging of the abdomen was performed. Clinical History: Secondary thrombocytosis Findings: The liver appears normal with no evidence of mass lesion or bile duct dilatation. Main por malina vein demonstrates normal direction of flow. The gallbladder is absent, compatible with prior chol ecystectomy. The common bile duct measures 2 mm. The pancreas is obscured by bowel gas shadowing. Spleen is borderline enlarged, measuring 13.1 x 5.6 cm. Impression: Borderline splenomegaly, as above. Reviewed, dictated and finalized at location M. ETS AND BUILDINGS DECORATOR Impression: Borderline splenomegaly, as above.
== END 2023-04-12 11:10 | disposition home or self-care (01) ==
LOC: ANHIMG 11:10
PROVIDERS: PCP Internal Medicine; Visit Provider Internal Medicine Hematology & Oncology
DX: D75.838 Other thrombocytosis (principal)
CPT/HCPCS: 76705

== ENCOUNTER 2023-07-09 13:20 | Outpatient (CLI) | payer MEDICARE, SELFPAY ==
[2023-07-09 13:39] LABS: Hematocrit 49.2 % (42.0-52.0); Hemoglobin 16.5 g/dL (14.0-18.0); Immature Platelet Fraction Pct 11.4 % (0.9-11.2); Mean Corpuscular HGB Conc 33.5 g/dl (32-36); Mean Corpuscular Hemoglobin 29.2 pg (26-34); Mean Corpuscular Volume 87.1 fl (80-100); Mean Platelet Volume 10.8 fl (7.4-10.4); Platelet Count Result 84 k/mm3 (150-375); Red Blood Count 5.65 M/mm3 (4.6-6.20); Red Cell Distribution Width 15.5 % (11.5-14.5); White Blood Count 6.9 K/mm3 (4.5-10.0)
[2023-07-09 19:45] LABS: Iron 95 ug/dL (49-181)
[2023-07-09 19:56] LABS: Percent Iron Saturation 31 % (20-50)
== END 2023-07-09 13:21 | disposition home or self-care (01) ==
LOC: ANHLAB 13:22
PROVIDERS: PCP Internal Medicine; Visit Provider Internal Medicine Hematology & Oncology
DX: D64.9 Anemia, unspecified (principal)
CPT/HCPCS: 36415; 82728; 83540; 83550; 85027; 85055

== ENCOUNTER 2023-07-23 14:38 | Outpatient (CLI) | payer MEDICARE, SELFPAY ==
[2023-07-23 14:56] LABS: Hemoglobin 16.5 g/dL (14.0-18.0); Immature Granulocyte Percent A 0.4 % (0-0.5); Lymphocytes Percent Auto 32.5 % (18.3-44.2); Mean Corpuscular HGB Conc 34.4 g/dl (32-36); Mean Corpuscular Hemoglobin 29.9 pg (26-34); Mean Corpuscular Volume 87.1 fl (80-100); Monocytes Percent Auto 6.1 % (2.6-8.5); Neutrophils Percent Auto 56.8 % (45.5-73.1); Platelet Count Result 79 k/mm3 (150-375); Red Blood Count 5.51 M/mm3 (4.6-6.20); Red Cell Distribution Width 14.6 % (11.5-14.5); White Blood Count 7.5 K/mm3 (4.5-10.0)
[2023-07-23 14:57] LABS: Basophils Absolute Auto 0.1 K/mm3 (0.0-0.1); Basophils Percent Auto 0.9 % (0.2-1.2); Eosinophils Absolute Auto 0.3 K/mm3 (0-0.3); Eosinophils Percent Auto 3.3 % (0-4.4); Immature Granulocyte Absolute 0.03 K/mm3 (0.00-0.031); Lymphocytes Absolute Auto 2.43 K/mm3 (0.9-3.2); Monocytes Absolute Auto 0.5 K/mm3 (0.1-0.6); Neutrophils Absolute Auto 4.2 K/mm3 (1.3-6.7)
== END 2023-07-23 14:39 | disposition home or self-care (01) ==
LOC: ANHLAB 14:39
PROVIDERS: PCP Internal Medicine; Visit Provider Internal Medicine Hematology & Oncology
DX: D64.9 Anemia, unspecified (principal)
CPT/HCPCS: 36415; 85025; 85055

== ENCOUNTER 2023-08-28 12:37 | Outpatient (CLI) | payer MEDICARE, SELFPAY ==
--- NOTE | ~2023-08-28 | US_ITS ---
EXAMINATION: US thyroid DATE: 08/28/2023 13:28 INDICATION: Left thyroid nodule. TECHNIQUE: Multiple ultrasound images of the thyroid were obtained. COMPARISON: None. FINDINGS: The right thyroid lobe measures 4.4 x 2.2 x 2.2 cm. The left thyroid lobe measures 5.1 x 2.6 x 2.4 c m. In the right thyroid lobe, there is a 4 mm nodule. In the left thyroid lobe, there is a 2.2 cm so lid, hypoechoic, wider than tall nodule with ill-defined margin without echogenic foci (TI-RADS TR4). In the left thyroid lobe, there is a 9 mm solid, very hypoechoic, wider than tall nodule with smooth margin without echogenic foci (TR4). IMPRESSION: 1. Multinodular goiter. Ultrasound-guided fine-needle aspiration of the 2.2 cm left thyroid nodule is recommended. Reviewed, dictated and finalized at location A.
== END 2023-08-28 12:38 ==
PROVIDERS: PCP Internal Medicine; Visit Provider Internal Medicine
DX: E04.2 Nontoxic multinodular goiter (principal)
CPT/HCPCS: 76536

== ENCOUNTER 2023-09-20 08:15 | Outpatient (CLI) | payer MEDICARE, SELFPAY ==
--- NOTE | ~2023-09-20 | PE_ITS ---
EXAMINATION: PET skull to mid thigh DATE: 09/20/2023 10:02 INDICATION: Other nonspecific abnormal finding in lung field. TECHNIQUE: Blood glucose level was 154 mg/dL. 8.716 mCi of 18-fluorodeoxyglucose (18-FDG) was adminis tered i.v. Low dose computed tomography (CT) images were acquired from the base of the brain to the p roximal thighs for attenuation correction and anatomic localization. Automated exposure control was e mployed. Dose-length product (DLP) was 1254 mGy-cm. Positron emission tomography (PET) images were ac quired in the same distribution. COMPARISON: Chest CT 07/16/2023 FINDINGS: Head/neck: There are likely changes of right ocular lens replacement surgery. There are no pathologic ally enlarged lymph nodes. There are changes of left-sided craniotomy. Chest: There are airspace and groundglass opacities in posterior segment right upper lobe with maximu m SUV of 2.4. No pleural effusion. The heart size is normal. No pericardial effusion. Abdomen/pelvis/proximal thighs: The liver and spleen are normal. Images of cholecystectomy. The pancr eas, adrenal glands and left kidney are normal. There is a 15 mm stone in right kidney. There is dive rticulosis of the colon without evidence of diverticulitis. There are no dilated loops of bowel. Ther e are changes of appendectomy. There are no pathologically enlarged lymph nodes. There is no free int raperitoneal fluid. There is no osseous malignancy. IMPRESSION: 1. Airspace and groundglass opacities in posterior segment right upper lobe with maximum SUV of 2.4, stable from 07/16/23, probably benign. Consider noncontrast low-dose chest CT in 6 months. Reviewed, dictated and finalized at location E. IMPRESSION: 1. Airspace and groundglass opacities in posterior segment right upper lobe wit h maximum SUV of 2.4, stable from 07/16/23, probably benign. Consider noncontras t low-dose chest CT in 6 months.
[2023-09-20 08:36] LABS: Glucose Point of Care 154 mg/dl (65-105)
--- NOTE | 2023-09-20 13:52 | WPDPFTINT ---
PFT Procedure Performed PFT Procedure Performed Spirometry with Pre/Post Bronchodilator Plethysmography (Lung Vol) Diffusing Cap (DLCO) Flow Vol Loop PFT Interpretation This is a pulmonary function test with pre and post-bronchodilator spirometry, plethysmography and diffusing capacity. The test was performed and results interpreted in accordance with the 2019 and 2005 ATS/ERS Task Force guidelines respectively using the Global Lung Function Initiative-2012 reference equations. Patient demonstrated good effort and cooperation. Reproducibility criteria were met. The quality of the pre bronchodilator spirometry maneuver was Grade B and post bronchodilator spirometry maneuver was Grade B. Findings: Spirometry: The contour the expiratory flow tracing demonstrates a double hump pattern in 3 of 3 pre bronchodilator maneuvers and 4 of 4 post bronchodilator maneuvers. The contour the inspiratory flow tracing is truncated. The pre bronchodilator FVC is 3.75 L, 90% predicted. The pre bronchodilator FEV1 is 2.70 L, 87% predicted. The pre bronchodilator FEV1: FVC ratio is 72%. The post bronchodilator FVC is 3.74 L, representing no change. The post bronchodilator FEV1 is 2.75 L, representing 2% increase. The post bronchodilator FEV1: FVC ratio 74%. Plethysmography: The total lung capacity is 5.84 L, 83% predicted. The functional residual capacity is 2.39 L, 63% predicted. The residual volume is 2.10 L, 83% predicted. Diffusing capacity: The diffusing capacity unadjusted for hemoglobin and carboxyhemoglobin is 24.0, 94% predicted. The diffusing capacity adjusted for alveolar volume is 5.03, 131% predicted. Impression: There is a reproducible double hump pattern in the expiratory flow tracing. This has been described with a variable obstruction at the thoracic inlet as the narrowing moves from an intrathoracic to a relative extrathoracic location towards the end of expiration. The contour the inspiratory flow tracing is truncated and cannot be fully evaluated for the presence of flattening. Otherwise the spirometry is normal without evidence of an obstructive abnormality. There is no significant improvement after inhaling a single dose of albuterol. The lung volumes are normal. The diffusing capacity unadjusted for hemoglobin and carboxyhemoglobin is normal and is increased when adjusted for alveolar volume. There are no prior studies for comparison
== END 2023-09-20 08:16 | disposition home or self-care (01) ==
PROVIDERS: PCP Internal Medicine; Visit Provider Internal Medicine Critical Care Medicine
DX: R91.8 Other nonspecific abnormal finding of lung field (principal); Z87.891 Personal history of nicotine dependence
CPT/HCPCS: 78815; 94060; 94726; 94729; A9552

== ENCOUNTER 2023-12-10 14:01 | Outpatient (CLI) | payer MEDICARE, SELFPAY ==
[2023-12-10 14:21] LABS: Basophils Absolute Auto 0.1 K/mm3 (0.0-0.1); Eosinophils Absolute Auto 0.2 K/mm3 (0-0.3); Eosinophils Percent Auto 2.5 % (0-4.4); Hematocrit 47.8 % (42.0-52.0); Hemoglobin 15.7 g/dL (14.0-18.0); Immature Granulocyte Absolute 0.02 K/mm3 (0.00-0.031); Immature Granulocyte Percent A 0.3 % (0-0.5); Immature Platelet Fraction Pct 11.4 % (0.9-11.2); Lymphocytes Absolute Auto 1.92 K/mm3 (0.9-3.2); Lymphocytes Percent Auto 27.1 % (18.3-44.2); Mean Corpuscular HGB Conc 32.8 g/dl (32-36); Mean Corpuscular Hemoglobin 29.7 pg (26-34); Mean Corpuscular Volume 90.5 fl (80-100); Mean Platelet Volume 11.4 fl (7.4-10.4); Monocytes Absolute Auto 0.5 K/mm3 (0.1-0.6); Monocytes Percent Auto 6.8 % (2.6-8.5); Neutrophils Absolute Auto 4.4 K/mm3 (1.3-6.7); Neutrophils Percent Auto 62.3 % (45.5-73.1); Platelet Count Result 78 k/mm3 (150-375); Red Blood Count 5.28 M/mm3 (4.6-6.20); Red Cell Distribution Width 13.3 % (11.5-14.5); White Blood Count 7.1 K/mm3 (4.5-10.0)
[2023-12-10 14:22] LABS: Blood Urea Nitrogen 19 mg/dL (8-26); Carbon Dioxide 25 mmol/L (22-30); Chloride 108 mmol/L (98-109); Estimated Glomerular Filt Rate 59; Glucose 115 mg/dL (70-105); Ionized Calcium (POC) 1.24 mmol/L (1.11-1.31); Potassium 4.3 mmol/L (3.5-4.9); Sodium 144 mmol/L (138-146)
[2023-12-10 16:52] LABS: Alanine Aminotransferase 26 U/L (6-50); Albumin Level 4.5 g/dL (3.5-5.1); Alkaline Phosphatase 65 U/L (38-126); Anion Gap 12 mmol/L (4-12); Aspartate Amino Transferase 32 U/L (17-59); Bilirubin,Total 0.8 mg/dL (0.2-1.3); Blood Urea Nitrogen 18 mg/dL (9-20); Calcium 9.1 mg/dL (8.4-10.2); Carbon Dioxide 24 mmol/L (22-30); Chloride 107 mmol/L (98-107); Estimated Glomerular Filt Rate > 60; Glucose 115 mg/dL (65-110); Potassium 4.4 mmol/L (3.4-5.0); Sodium 143 mmol/L (137-145)
== END 2023-12-10 14:02 | disposition home or self-care (01) ==
LOC: ANHLAB 14:04
PROVIDERS: PCP Internal Medicine; Visit Provider Internal Medicine Hematology & Oncology
DX: D64.9 Anemia, unspecified (principal)
CPT/HCPCS: 36415; 80047; 80053; 85025; 85055

== ENCOUNTER 2024-03-25 08:58 | Outpatient (CLI) | payer MEDICARE, SELFPAY ==
--- NOTE | ~2024-03-25 | CT_ITS ---
Clinical Indication: Lung mass CT Scan of the Chest with Contrast: Technique: Contiguous sections were acquired throughout the chest after intravenous administration of 75 cc of Omnipaque 350. Dose reduction technique was used on this scan by utilizing automated exposu re control and iterative reconstruction technique. The dose-length product (DLP) was 508.95 mGy-cm. Findings: There is no evidence of any significant mediastinal, hilar or axillary lymphadenopathy. There is no f illing defect in the pulmonary arterial tree to suggest pulmonary embolus. There is no evidence of ao rtic dissection or aneurysm. There is no evidence of pleural or pericardial effusion. Stable area of irregular consolidation focally in the right upper lobe. No other significant pulmonar y abnormality seen. Images through the upper abdomen reveal no abnormalities. Impression: Stable area of irregular airspace consolidation the right upper lobe. Precise etiology remains indete rminate, but lack of progression mitigates against neoplasm. Reviewed, dictated and finalized at [facility]. Impression: Stable area of irregular airspace consolidation the right upper lobe. Precise e tiology remains indeterminate, but lack of progression mitigates against neopla sm.
[2024-03-25 09:27] LABS: Estimated Glomerular Filt Rate > 60
== END 2024-03-25 08:59 | disposition home or self-care (01) ==
PROVIDERS: PCP Internal Medicine; Visit Provider Internal Medicine Hematology & Oncology
DX: R91.8 Other nonspecific abnormal finding of lung field (principal)
CPT/HCPCS: 71260; Q9967

== ENCOUNTER 2024-04-11 10:37 | Outpatient (CLI) | payer MEDICARE, SELFPAY ==
[2024-04-11 10:56] LABS: Basophils Absolute Auto 0.1 K/mm3 (0.0-0.1); Basophils Percent Auto 0.9 % (0.2-1.2); Eosinophils Absolute Auto 0.2 K/mm3 (0-0.3); Eosinophils Percent Auto 2.3 % (0-4.4); Hematocrit 47.2 % (42.0-52.0); Immature Granulocyte Absolute 0.04 K/mm3 (0.00-0.031); Immature Granulocyte Percent A 0.6 % (0-0.5); Immature Platelet Fraction Pct 10.3 % (0.9-11.2); Lymphocytes Absolute Auto 1.61 K/mm3 (0.9-3.2); Lymphocytes Percent Auto 25.1 % (18.3-44.2); Mean Corpuscular HGB Conc 33.9 g/dl (32-36); Mean Corpuscular Hemoglobin 30.1 pg (26-34); Mean Corpuscular Volume 88.7 fl (80-100); Mean Platelet Volume 11.3 fl (7.4-10.4); Monocytes Absolute Auto 0.4 K/mm3 (0.1-0.6); Monocytes Percent Auto 5.9 % (2.6-8.5); Neutrophils Absolute Auto 4.2 K/mm3 (1.3-6.7); Neutrophils Percent Auto 65.2 % (45.5-73.1); Platelet Count Result 76 k/mm3 (150-375); Red Blood Count 5.32 M/mm3 (4.6-6.20); Red Cell Distribution Width 13.7 % (11.5-14.5); White Blood Count 6.4 K/mm3 (4.5-10.0)
[2024-04-11 10:57] LABS: Blood Urea Nitrogen 20 mg/dL (8-26); Carbon Dioxide 24 mmol/L (22-30); Chloride 108 mmol/L (98-109); Estimated Glomerular Filt Rate > 60; Glucose 229 mg/dL (70-105); Ionized Calcium (POC) 1.19 mmol/L (1.11-1.31); Potassium 4.1 mmol/L (3.5-4.9); Sodium 142 mmol/L (138-146)
== END 2024-04-11 10:38 | disposition home or self-care (01) ==
LOC: ANHLAB 10:39
PROVIDERS: PCP Internal Medicine; Visit Provider Internal Medicine Hematology & Oncology
DX: D64.9 Anemia, unspecified (principal)
CPT/HCPCS: 36415; 80047; 85025; 85055

== ENCOUNTER 2024-10-08 11:48 | Outpatient (CLI) | payer MEDICARE, SELFPAY ==
--- OUTSIDE RECORDS SUMMARY | 2024-10-08 11:51 | XMS_ITS | Encounter Summary ---
Author Organization [facility] Address [address] [place] [address] Care Team Providers Care Clothes Model Name Role Phone Eliceo Templeton RN Unavailable [phone] Casie Pruett RN Unavailable Unava Redd Barbour MD Primary Care Provider [phone] Reason for Visit * Reason Comments Refill Request Encounter Details Date Type Department Care Team (Late st Contact Info) Description 09/21/2022 Refill [facility] - Orthoped[facility] [address] [facility] [place] [address] Abhijeet Gallego MD [address] [facility] [place] [address] Refill Request Social History Tobacco Use Types Packs/Day Years Used Date Smoking Tobacco: Never Passive Smoke Exposure: Never Smokeless Tobacco: Never Alcohol Use Standard Drinks/Week Comments Not Currently 0 (1 standard drink = 0.6 oz pur e alcohol) once monthly- one drink AUDIT-C Answer Date Recorded Q1: How often do you have a drink containing alc ohol? Monthly or less 05/11/2022 Q2: How many drinks containi ng alcohol do you have on a typical day when you are drinking? 1 or 2 05/11/2022 Q3: How often do you have si x or more drinks on one occasion? Never 05/11/2022 Hunger Vital Sign Answer Date Recorded Within the past 12 months, y ou worried that your food would run out before you got the money to buy more. Never true 05/12/20 22 Within the past 12 months, t he food you bought just didn't last and you didn't have money to get more. 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 Answer Date of Assessment Author No 05/12/2022 10:29 AM Shirlene Mccullough RN * Is person blind or have serious difficulty seeing? Answer Date of Assessment Author No 05/12/2022 10:29 AM Shirlene Mccullough RN * Does person have serious difficulty walking/climbing stairs? Answer Date of Assessment Author No 05/12/2022 10:29 AM Shirlene Mccullough RN * Does person have difficulty dressing/bathing? Answer Date of Assessment Author No 05/12/2022 10:29 AM Shirlene Mccullough RN * Does person have difficulty doing errands alone? Answer Date of Assessment Author No 05/12/2022 10:29 AM Shirlene Mccullough RN documented as of this encounter Mental Status * Does person have difficulty concentrating/remembering/making decisions? Answer Entry Date Author No 05/12/2022 10:29 AM Shirlene Mccullough RN documented in this encounter Plan of Treatment Not on file documented as of this encounter Visit Diagnoses Not on filedocumented in this encounter Care Teams Clothes Model Relationship Specialty Start Date End Date Redd De Anda MD [address] [place] [address] PCP - General Internal Medicine 05/11/22 Eliceo Templeton, RN Health Outreach Worker 10/22/13 Gideon-Casie Celeste RN Registered Nurse 09/28/16 documented as of this encounter
--- OUTSIDE RECORDS SUMMARY | 2024-10-08 11:51 | XMS_ITS | Continuity of Care Document ---
Author Name [facility] Organization [facility] Care Team Providers Care Sales Clerk Supervisor Name Role Phone [facility] Unavailable Unavailable Problems Combined list of problems from Department of [facility] and [facility] facilities. It does not include entries that were removed or entered in error. 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, l eye Active Diagnosis [facility] Diagnosis: ICD-10-CM I10 Essential (primary) hypertension Active Diagnosis [facility] Diagnosis: ICD-10-CM Z71.9 Counseling, unspecified Active Diagnosis [facility] Diagnosis: ICD-10-CM E11.3293 Type 2 diab with mild nonp rtnop without macular edema, bi Active Diagnosis [facility] Diagnosis: ICD-10-CM E11.8 Type 2 diabetes mellitus with unspecified complications Active Diagnosis [facility] Diagnosis: ICD-10-CM E11.9 Type 2 diabetes mellitus without complications Active Diagnosis [facility] Medications Combined list of outpatient medications from [facility] and [facility] facilities.Medications provided include 1) outpatient medications from the last 15 months, and 2) patient-reported medications. Medication Details Route Status Patient Instructions Prescription Expires Prescription Number Last Dispense Date Ordering Provider Order Date Order Qty Source ATORVASTATI N CA 80MG TAB TAKE ONE-HALF TABLET BY MOUTH EVERY EVENING ORAL ACTIVE ELIZABETH ESTEBAN 2021 [facility] BRIMONIDINE 0.2%/BRINZO LAMIDE 1% SUSP,OPH INSTILL 1 DROP IN BOTH EYES TWICE A DAY ([place]) OPHTHA LMIC ACTIVE 08/30/2025 [id number] BARRETT PAZ 2024 24 [facility] INSULIN,ASP ART,HUMAN 100 UNT/ML INJ INJECT 18 UNITS UNDER THE SKIN THREE TIMES A DAY BEFORE MEALS SUBCUT ANEOUS ACTIVE ELIZABETH ESTEBAN Elias 2021 [facility] INSULIN,GLA RGINE,HUMAN 100 UNT/ML INJ INJECT 56 UNITS UNDER THE SKIN ONCE A DAY SUBCUT ANEOUS ACTIVE MELANIE ESTEBANBrendan Griffin 2021 [facility] LACOSAMIDE 100MG TAB TAKE ONE TABLET BY MOUTH TWICE A DAY ORAL ACTIVE MELANIE ESTEBANBrendan Griffin 2022 [facility] [place] LEVETIRACET AM 500MG TAB TAKE TWO TABLETS BY MOUTH TWICE A DAY ORAL ACTIVE MELANIE ESTEBANBrendan Griffin 2022 [facility] [place] PREGABALIN 300MG CAP,ORAL TAKE 1 CAPSULE BY MOUTH TWICE A DAY ORAL ACTIVE ELIZABETH ESTEBAN Elias 2023 [facility] [place] ZONISAMIDE 100MG CAP TAKE 1 CAPSULE BY MOUTH TWICE A DAY ORAL ACTIVE MELANIE ESTEBANBrendan Griffin 2023 [facility] Allergies, Adverse Reactions, Alerts Combined list of allergies from [facility] and [facility] facilities. It does not include entries that were removed or entered in error. Substance Category Reaction Severity Reaction type Status Date Reported Comments Source CODEINE Propensity to adverse reactions to drug (finding) Hyperactive behavior active 8 [facility] JARDIANCE Propensity to adverse reactions to drug (finding) Seizure active 4 [facility] Immunizations Combined list of available immunizations from the Department of Defense and Veterans Affairs facilities. Immunization Series Date Given Administered By Site Reaction Lot Number CVX Code Drug Healthcare Applications Analyst Status Comments Source COVID-19 ([facility]), MRNA, LNP-S, PF, DARRIUS-SUCROSE, 30 MCG/0.3 ML (AGES 12+ YEARS) 4 2023 309 complet ed HISTORICA L INFORMATI ON - FROM [facility] INFLUENZA, ADJUVANTED, TRIVALENT, PF 3 2023 168 complet ed HISTORICA L INFORMATI ON - FROM [facility] RSV, BIVALENT, PROTEIN SUBUNIT RSVPREF, DILUENT RECONSTITUTED , 0.5 ML, PF 2023 JEAN GARCIA LEFT DELTO ID [id number] 305 complet ed [facility] AT [facility] PNEUMOCOCCAL CONJUGATE PCV20, POLYSACCHARID E [id number] CONJUGATE, ADJUVANT, PF 1 2022 216 complet ed HISTORICA L INFORMATI ON - FROM [facility] N INFLUENZA, UNSPECIFIED FORMULATION 2022 88 complet ed HISTORICA L INFORMATI ON - SOURCE UNSPECIFI ED, [facility] COVID-19 ([facility]), MRNA, LNP-S, PF, DARRIUS-SUCROSE, 30 MCG/0.3 ML (AGES 12+ YEARS) 3 2022 309 complet ed HISTORICA L INFORMATI ON - FROM [facility] INFLUENZA, ADJUVANTED, QUADRIVALENT, PF 2 2022 205 complet ed HISTORICA L INFORMATI ON - FROM OTHER [facility] COVID-19 ([facility]), MRNA, LNP-S, BIVALENT, PF, 30 MCG/0.3 ML DOSE 2 2021 300 complet ed HISTORICA L INFORMATI ON - FROM OTHER [facility] N INFLUENZA, HIGH-DOSE, QUADRIVALENT, PF 1 2021 197 complet ed HISTORICA L INFORMATI ON - FROM [facility] N INFLUENZA, UNSPECIFIED FORMULATION 2021 88 complet ed HISTORICA L INFORMATI ON - SOURCE UNSPECIFI ED, [facility] COVID-19 ([employer]), MRNA, LNP-S, PF, 30 MCG/0.3 ML DOSE 3 2020 208 complet ed [facility] INFLUENZA, UNSPECIFIED FORMULATION 2020 88 complet ed [facility] COVID-19 ([employer]), MRNA, LNP-S, PF, 30 MCG/0.3 ML DOSE 2 2020 208 complet ed PFR; [id number]; 1 [facility] ZOSTER RECOMBINANT 1 2020 187 complet ed HISTORICA L INFORMATI ON - FROM OTHER REGISTRY, [facility] COVID-19 ([facility]), MRNA, LNP-S, PF, 30 MCG/0.3 ML DOSE 1 2020 208 complet ed PFR; [id number]; 1 [facility] INFLUENZA, UNSPECIFIED FORMULATION 2019 88 complet ed [facility] PNEUMOCOCCAL POLYSACCHARID E [id number] 2019 33 complet ed [facility] INFLUENZA, UNSPECIFIED FORMULATION 2018 88 complet ed [employer] [facility] TDAP 2018 115 complet ed Left Deltoid [facility] INFLUENZA, UNSPECIFIED FORMULATION 2017 88 complet ed [facility] PNEUMOCOCCAL CONJUGATE PCV 13 2016 133 complet ed per patient [facility] INFLUENZA, UNSPECIFIED FORMULATION 2016 88 complet ed [facility] Vital Signs Combined list of inpatient and outpatient Vital Signs from Department of Defense and Veterans Affairs, ranging from 12 months to all on record, depending upon the facility. Vital Sign Value Date Comments Source SYSTOLIC BLOOD PRESSURE 161 08/11/2024 13:11:03 [facility] DIASTOLIC BLOOD PRESSURE 75 08/11/2024 13:11:03 [facility] PULSE OXIMETRY 96 08/11/2024 13:11:03 [facility] WEIGHT 225.2 08/11/2024 13:11:03 [facility] BMI 32 kg/m2 08/11/2024 13:11:03 [facility] PAIN 0 08/11/2024 13:11:03 [facility] TEMPERATURE 97.8 08/11/2024 13:11:03 [facility] PULSE 86 08/11/2024 13:11:03 [facility] RESPIRATION 20 08/11/2024 13:11:03 [facility] Encounters Combined list of: 1) Encounters from Department of [facility] Affairs facilities going backup to the last 18 months, not all [place] inpatient encounters are included; 2) Encounters from the Department of [facility] facilities going backup to 280 months. Location Location Details Encounter Type Encounter Number Reason For Visit Attending Provider ADM Date DC Date Status Disposition Source [facility] Outpatient Encounter [id number] 04/16 [facility] Outpatient Encounter [id number] 04/27 [facility] OFFICE O/P EST MOD 30-39 MIN [id number] Diagnos is: ICD-10- CM E11.9 Type 2 diabete s mellitu s without complic ations Trinidad SEGURA NETTA BARRETT 05/08 [facility] N [facility] Outpatient Encounter [id number] 05/09 [facility] Outpatient Encounter [id number] REKHA HA TTHEW C 05/[facility] OFFICE O/P EST MOD 30 MIN [id number] Diagnos is: ICD-10- CM E11.8 Type 2 diabete s mellitu s with 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 complic atnicole ELIZABETH ESTEBAN 07/23 [facility] Outpatient Encounter [id number] 08/23 [facility] COMPRE OPH EXAM EST PT 1/ [id number] Diagnos is: ICD-10- CM E11.329 3 Type 2 diab with mild nonp rtnop without macular edema, bi REJI ATKINS 02/28 [facility] Outpatient Encounter [id number] 04/01 [facility] END OF LIFE COUNSELING [id number] Diagnos is: ICD-10- CM 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, 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 COLIN JERONIMO 07/18 [facility] Outpatient Encounter [id number] CINDY GARCIA 08/08 [facility] Outpatient Encounter [id number] 08/11 [facility] OFFICE O/P EST MOD 30 MIN [id number] Diagnos is: ICD-10- CM I10 Essenti al (primar y) hyperte nsmaria luisa ELIZABETH ESTEBAN 08[facility]11 [facility] En[facility] [id number] 08/22 [facility] OFFICE O/P EST LOW 20 MIN [id number] Diagnos is: ICD-10- CM E11.321 2 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 Social History Type Response Date Comment Source Tobacco smoking status NHIS VA-TOBACCO NEVER USED CIGARETTES 08/11/2024 [facility] History of tobacco use VA-TOBACCO USE FORMER OTHER TYPE 08/11/2024 smoked a pipe- quit in 1980 [facility] History of tobacco use VA-TOBACCO QUIT 15 YRS OR MORE 07/23/2023 [facility] History of tobacco use VA-TOBACCO FORMER USER 07/31/2022 [facility] History of tobacco use VA-TOBACCO QUIT 15 YRS OR MORE 08/05/2021 [facility] History of tobacco use [place]-TO[place]CO FORMER USER 07/28/2020 [facility] History of tobacco use VA-TOBACCO QUIT 15 YRS OR MORE 07/29/2019 [facility] History of tobacco use VA-TOBACCO FORMER USER 08/01/2018 [facility] Plan of Care List of future care activities from Department [facility] facilities. Additional future care activities may be listed in the Assessment and Plan section. Date/Time Care Activity Care Activity Detail Facili ty 11/26/2024 AMBULATORY - SURGERY AMBULATORY - SURGERY [facility] Advance Directives List of completed, amended, or rescinded Advance Directives on record at Department of [facility] facilities. An actual copy of the Directive is not included. Date Advance Directive Provider Source 08/22/2024 ADVANCE DIRECTIVE REAGAN LY [facility]
--- OUTSIDE RECORDS SUMMARY | 2024-10-08 11:51 | XMS_ITS ---
Author Name [facility] [place] Organization [facility] [place] Address [address] [place] [address] Care Team Providers Care Light Coil Winder Name Role Phone ELIZABETH ESTEBAN Primary Care Provider Sourav porter Insurance Providers: All historical and current Section Date Range: From patient's date of to the date document was created. This section includes the names of all active insurance providers for the patient. Insurance Provider Type of Coverage Plan Name Start of Policy Coverage End of Policy Coverage Group Number Member ID Insurance Provider's Telephone Number Policy Graves's Name Patient's Relationship to Policy Graves [employer] [facility] (WNR) MEDICARE ADVANTAGE [facility] (WNR) Mar 28, 2022 [id number] [place] PATIENT MEDICARE (WNR) MEDICARE (M) PART A Jan 26, 2015 PART A [id number] [place] PATIENT MEDICARE (WNR) MEDICARE (M) PART B Jan 26, 2015 PART B [id number] PATIENT Selected Encounter This section includes the information on record at [place] for the Encounter. Date/Time Encounter Type Encounter Description Reason Provider Source Aug 11, 2024 01:00 PM OFFICE O/P EST MOD 30 MIN PRIMARY CARE/MEDICINE ICD-10-CM I10 Essential (primary) hypertension MIMI ESTEBAN [facility] Encounter Template Text not used by [place] Assessments - Encounter Diagnoses This section includes the primary and secondary diagnoses documented for the Encounter. Date/Time Primary/Secondary Diagnosis Diagnosis Name Provider Source Aug 11, 2024 01:35 PM PRIMARY Essential (primary) hypertension MIHAI ESTEBAN [facility] Aug 11, 2024 01:35 PM SECONDARY Transient cerebral ischemic attack, unspecified MIHAI ESTEBAN [facility] Aug 11, 2024 01:35 PM SECONDARY Type 2 diabetes mellitus with unspecified complications MIHAI ESTEBAN [facility] Aug 11, 2024 01:35 PM SECONDARY Unspecified hearing loss, bilateral MIHAI ESTEBAN [facility] Plan of Treatment: Future Appointments (+ 6 months) and Future Tests (+/- 45 days) The Plan of Treatment section includes future care activities for the patient from all [facility]. This section includes future appointments and future orders which are active, pending or scheduled. Future Appointments This section includes appointments that were scheduled to occur 6 months from the date of the Encounter, up to a maximum of 20 appointments. The data comes from all [facility] facilities. Appointment Date/Time Appointment Type Appointme nt Facility Name Aug 29, 2024 03:00 PM AMBULATORY - SURGERY [facility] Nov 26, 2024 03:00 PM AMBULATORY - SURGERY [facility] Vital Signs: All taken on the encounter date This section contains inpatient and outpatient Vital Signs collected on the date of the Encounter. Date/Time Temperature Pulse Blood Pressure Respiratory Rate SP02 Pain Height Weight Body Mass Index Source Aug 11, 2024 01:32 PM 142/71 [facility] Aug 11, 2024 01:11 PM 97.8 86 161/75 20 96 0 225.2 32 [facility] Social History: Smoking Status (Most current) and Tobacco Use (All prior to encounter date) This section includes the most current, and the historical, smoking and tobacco- related health factors from the [place] facility where the Encounter took place. Current Smoking Status This section includes the most current smoking, or tobacco-related health factor, from the [place] facility where the Encounter took place. Date/Time Current Smoking Status Ori aaron Aug 11, 2024 01:00 PM VA-TOBACCO NEVER U SED CIGARETTES [facility] Tobacco Use History This section includes a history of the smoking, or tobacco-related health factors, that were collected on or before the date of the Encounter. The data comes from the [place] facility where the Encounter took place. Date/Time Smoking Status/Tobacco Use Comment F acility Aug 11, 2024 01:00 PM VA-TOBACCO USE FOR HORACIO OTHER TYPE smoked a pipe- quit in 1979 [facility] Jul 23, 2023 01:00 PM VA-TOBACCO FORMER USER [facility] Jul 23, 2023 01:00 PM VA-TOBACCO QUIT 15 YRS OR MORE [facility] Jul 31, 2022 11:30 AM VA-TOBACCO FORMER USER [facility] Jul 31, 2022 11:30 AM VA-TOBACCO QUIT 15 YRS OR MORE [facility] Aug 05, 2021 11:30 AM VA-TOBACCO FORMER USER [facility] Aug 05, 2021 11:30 AM VA-TOBACCO QUIT 15 YRS OR MORE [facility] Jul 28, 2020 01:00 PM VA-TOBACCO FORMER USER [facility] Jul 28, 2020 01:00 PM VA-TOBACCO QUIT 15 YRS OR MORE [facility] Jul 29, 2019 10:00 AM VA-TOBACCO FORMER USER [facility] Jul 29, 2019 10:00 AM VA-TOBACCO QUIT 15 YRS OR MORE [facility] Aug 01, 2018 10:02 AM VA-TOBACCO FORMER USER [facility] Aug 01, 2018 10:02 AM VA-TOBACCO QUIT 15 YRS OR MORE [facility] Advance Directives: All historical and current Section Date Range: From patient's date of to the date document was created. This section includes ALL of a patient's completed or amended [place] Advance and Rescinded Directives. The entries below indicate that a directive exists for the patient, but an actual copy is not included with this document. The data comes from all [place] facilities. Date Advance Directives Provider Source Aug 22, 2024 ADVANCE DIRECTIVE REAGAN LY [facility] Encounter Notes: All associated encounter notes This section contains the clinical notes associated to the Encounter. Date/Time Encounter Note(s) Provider Source Aug 11, 2024 01:18 PM PRIMARY CARE NOTE: LOCAL TITLE: PRIMARY CARE PROVIDER ESTABLISHED VISIT ST STANDARD TITLE: PRIMARY CARE NOTE DATE OF NOTE: AUG 11, 2024@13:18 ENTRY DATE: AUG 11, 2024@13:18:32 AUTHOR: ELIZABETH ESTEBAN COSIGNER: URGENCY: STATUS: COMPLETED Patient is 74 and WHITE Self Identified Gender - NONE FOUND Annual visit. 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 Dr. Eric Allen. Was admitted 04/2022 for seizures. Continues on keppra and lacosemide. None for a yeara. Off jardiance. [facility]. Has gone back home from assisted living, had back surgery with complications. Also had right ear basal cell cancer removed. Being followed by a criminal investigator customs for thrombocytopenia. Gets yearly flu shot. Got covid vaccines. Last a1c 06/2022, 6.7%, on lantus and aspart. Tolerates the statin, is off the FELIPA. Off the plavix and low dose asa. Medication Review: The essential med list for review which includes the patient's active VA prescriptions and if applicable, remote VA prescriptions, non-VA prescriptions, and discontinued VA prescriptions within the last 90 days and known allergies including local and remote allergies have been reviewed. Allergies:CODEINE, JARDIANCE Active and Recently Outpatient Medications (excluding Supplies): Active Non-VA Medications Status 1) Non-VA ATORVASTATIN CALCIUM 80MG TAB 40MG BY MOUTH EVERY ACTIVE EVENING 2) Non-VA INSULIN,ASPART,HUMAN 100 UNIT/ML INJ 18 UNITS UNDER ACTIVE THE SKIN THREE TIMES A DAY BEFORE MEALS 3) Non-VA INSULIN,GLARGINE,HUMAN 100 UNIT/ML INJ 56 UNITS UNDER ACTIVE THE SKIN ONCE A DAY 4) Non-VA LACOSAMIDE 100MG TAB 100MG BY MOUTH TWICE A DAY ACTIVE Indication: FOR SEIZURES 5) Non-VA LEVETIRACETAM 500MG TAB 1000MG BY MOUTH TWICE A DAY ACTIVE Indication: FOR SEIZURES 6) Non-VA PREGABALIN 300MG ORAL CAP 300MG BY MOUTH TWICE A DAY ACTIVE Indication: FOR NERVE PAIN 7) Non-VA ZONISAMIDE 100MG CAP 100MG BY MOUTH TWICE A DAY ACTIVE Indication: FOR SEIZURES VITALS (most recent, as listed in the electronic record): B/P: 161/75 (08/11/2024 13:11) Pulse: 86 (08/11/2024 13:11) Temperature: 97.8 F [36.6 C] (08/11/2024 13:11) Weight: 225.2 lb [102.15 kg] (08/11/2024 13:11) Height: 70 in [177.8 cm] (08/01/2017 12:49) BMI: 32.4 Pain: 0 (08/11/2024 13:11) (0-10 scale) PMH: PSH: # Diabetes, # Hypertension, # Obesity # bilateral knee replacements, # brain tumor removed in 1995, meningioma # TIA: s/p plavix. # lap chilo and appy # thrombocytopenia # back surgery 2022. 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 Lives with . PE: ambulates with a cane. 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 # Diabetes, : at goal on lantus and aspart off metformin. # Hypertension: stable, usually at goal by home readings. # brain tumor removed in 1995, meningioma, # TIA: off the plavix. Low dose asa. # seizures: on keppra, lacosamide. # thrombocytopenia: f/b private heme. HM: Given all clinic/ER information and contact numbers. Aware that does not have emergency services nor a designated walk in clinic. [facility]. DISCUSSED DIET AND EXERCISE KEEP FUTURE APPOINTMENTS PATIENT VOICED UNDERSTANDING OF PLAN OF CARE RTC 1 yr , prn Assess Statin Use - Lipids (CVD/DM) - N,P,PH: The patient is still taking the NON-VA statin medication as documented. Avg Risk Colorectal Cancer Screen - L,N,P,PH: AVERAGE RISK colorectal cancer screening is due based on information available to this clinical reminder Patient has arranged or is choosing to arrange this care independent of and without assistance from this [place]. HTN Assess for Elevated BP>=140/90 - N,P,PH: Repeat blood pressure: 142/71 The patient's blood pressure is usually adequately controlled. No medication changes are indicated at this time. /fátima/ ELIZABETH ESTEBAN Staff Physician Signed: 08/11/2024 13:35 ELIZABETH ESTEBAN [facility] Aug 11, 2024 01:12 PM NURSING NOTE: LOCAL TITLE: V15 PACT FACE TO FACE NOTE STL STANDARD TITLE: NURSING NOTE DATE OF NOTE: AUG 11, 2024@13:12 ENTRY DATE: AUG 11, 2024@13:12:17 AUTHOR: KEYA BARNETTIGNHARMAN: URGENCY: STATUS: COMPLETED Provider Visit: Patient Identifiers : Full Name Date of Reason for visit: Established Follow-Up Mode of Arrival: Ambulatory Allergy Review: CODEINE, JARDIANCE Allergy list reviewed and remains current. Recent Vital Signs: Temperature: 97.8 F [36.6 C] (08/11/2024 13:11) Pulse: 86 (08/11/2024 13:11) Respiration: 20 (08/11/2024 13:11) B/P: 161/75 (08/11/2024 13:11) Pain: 0 (08/11/2024 13:11) Wt: 225.2 lb [102.15 kg] (08/11/2024 13:11) Ht: 70 in [177.8 cm] (08/01/2017 12:49) BMI: 32.4 POX: 96% (08/11/2024 13:11) Would you like to discuss any personal problem, family problem, alcohol use, drug use, or a mental or emotional illness? No Contact provided Primary Care phone number and encouraged to call if any questions or concerns. Review that after hours nurse line [phone] and emergency room are available 18/12 for patient use. Contact verbalized good understanding. Suicide Screen - V: C-SSRS Screening [place] Suicide Severity Rating Scale (C-SSRS) screener 1. Over the past month, have you wished you were or wished you could go to sleep and not wake up? No 2. Over the past month, have you had any actual thoughts of killing yourself? No 3. Over the past month, have you been thinking about how you might do this? Response not required due to responses to other questions. 4. Over the past month, have you had these thoughts and had some intention of acting on them? Response not required due to responses to other questions. 5. Over the past month, have you started to work out or worked out the details of how to kill yourself? Response not required due to responses to other questions. 6. If yes, at any time in the past month did you intend to carry out this plan? Response not required due to responses to other questions. 7. In your lifetime, have you ever done anything, started to do anything, or prepared to do anything to end your life (for example, collected pills, obtained a gun, gave away valuables, went to the roof but didn't jump)? No 8. If YES, was this within the past 3 months? Response not required due to responses to other questions. Depression Screening - V: Perform PHQ-2 A PHQ-2 screen was performed. The score was 0 which is a negative screen for depression. Over the past two weeks, how often have you been bothered by the following problems? 1. Little interest or pleasure in doing things Not at all 2. Feeling down, depressed, or hopeless Not at all Sexual Orientation - CP,L,N,P,PH,PS,S,U: The patient thinks of their sexual orientation as: Straight or Heterosexual Alcohol Use Screen (AUDIT-C) - V: Alcohol Screen: SCREEN FOR ALCOHOL (AUDIT-C) An alcohol screening test (AUDIT-C) was negative (score=0). 1. How often did you have a drink containing alcohol in the past year? Consider a drink to be a 12 ounce can or bottle of regular beer, 8 ounces of malt liquor, a 5 ounce glass of table wine, or a 1.5 ounce shot of liquor (like scotch, gin, or vodka). Never 2. How many drinks containing alcohol did you have on a typical day when you were drinking in the past year? Response not required due to responses to other questions. 3. How often did you have six or more drinks on one occasion in the past year? Response not required due to responses to other questions. Tobacco Use Screening - AT,DE,L,M,N,P,PH,PS,RT,S,U: The patient has never smoked cigarettes. The patient formerly used other types of tobacco. Comment: smoked a pipe- quit in 1979 [facility] MAP: PERSONAL HEALTH PLAN INVENTORY & MAP [place]'s Response: reading SHARED GOALS walk more Homelessness/Food Insecurity Screen - DI,L,N,P,PH,PS,S,U: In the past 2 months, have you been living in stable housing that you own, rent, or stay in as part of a household? Yes - Living in stable housing. Are you worried or concerned that in the next 2 months you may NOT have stable housing that you own, rent, or stay in as part of a household? No - Not worried about housing near future The [place] reports the following: Within the past 12 months, you worried whether your food would run out before you got money to buy more. Never true Within the past 12 months, the food you bought just didn't last and you didn't have money to get more. Never true /fátima/ KEYA BARNETT LPN LICENSED PRACTICAL NURSE Signed: 08/11/2024 13:15 KEYA BARNETT [facility]
--- OUTSIDE RECORDS SUMMARY | 2024-10-08 11:51 | XMS_ITS | Referral Summary ---
Author Organization [facility] Building B Address [address] [place] [address] Care Team Providers Care Corn Grinder Name Role Phone Redd De Anda MD Primary Care Provider [phone] Encounters Date Type Department Care Team Description 07/23/2024 10:30 AM [facility] [address] [place] [address] Yo Cheng MD Seizure (HCC) (Primary Dx); Essential tremor; Diabetic polyneuropathy associated with type 2 diabetes mellitus (HCC) from Last 3 Months Allergies Active Allergy Reactions Criticality Noted Date Comments Codeine Other (See comments) Reaction: HYPERACTIVITY, , Empagliflozin Other (See comments) Low 05/14/2022 Other reaction(s): PRODUCTION PAINTER Dysfunction Euglycemic dka Euglycemic dka Euglycemic dka Other reaction(s): PRODUCTION PAINTER Dysfunction Euglycemic dka Medications insulin aspart (NovoLOG) 100 unit/mL (3 mL) pen for injection Inject 18 units by subcutaneous route before breakfast, 16 units before lunch, and 18 units before dinner plus correction 07/25/[address] (PROTONIX) 40 mg EC tablet Take 1 tablet (40 mg total) by mouth daily 08/09/19 22 Active insulin glargine (LANTUS, BASAGLAR, SEMGLEE) 100 unit/mL (3 mL) pen for injection Inject 50 Units under the skin daily Active lisinopriL (PRINIVIL,ZEST RIL) 20 mg tablet Take 1 tablet (20 mg total) by mouth daily 05/23/20 Active FreeStyle Carley 2 Sensor kit Apply 1 sensor to the back of the arm every 14 days as directed 11/30/19 22 Active atorvastatin (LIPITOR) 40 mg tablet Take 1 tablet (40 mg total) by mouth daily 06/16/19 24 Active zonisamide (ZONEGRAN) 100 mg capsule TAKE 2 CAPSULES BY MOUTH AT BEDTIME 180 capsule 1 03/31/20 24 Active pregabalin (LYRICA) 150 mg capsule TAKE 1 CAPSULE IN THE MORNING AND 6 PM ALONG WITH A 300 MG CAPSULE AT BEDTIME. 180 capsule 1 04/22/20 24 Active lacosamide (VIMPAT) 100 mg tablet TAKE 1 TABLET BY MOUTH EVERY DAY IN THE MORNING 90 tablet 3 06/27/19 25 Active levETIRAcetam (KEPPRA) 1,000 mg tablet TAKE 1 TABLET (1000 MG) IN THE AM, 1 1/2 (1500 MG) TABLETS IN THE PM 225 tablet 1 08/01/19 25 Active pregabalin (LYRICA) 300 mg capsule TAKE 1 CAPSULE BY MOUTH EVERYDAY AT BEDTIME 90 capsule 10/03/19 25 Active pregabalin (LYRICA) 300 mg capsule TAKE 1 CAPSULE BY MOUTH EVERYDAY AT BEDTIME 90 capsule 07/02/19 25 025 Discontinued Active Problems Problem Noted Date Diagnosed Date Abnormal blood finding 10/29/2023 Abnormal feces 10/29/2023 Acute bronchitis 10/29/2023 Acute sinusitis 10/29/2023 Acute upper respiratory infection 10/29/2023 Arthropathy, lower leg 10/29/2023 Brachial neuritis 10/29/2023 Brain tumor 10/29/2023 Calculus of gallbladder 10/29/2023 Diarrhea 10/29/2023 Elevation of level of transa minase and lactic acid dehydrogenase (LDH) 10/29/2023 Enthesopathy of knee 10/29/2023 Fall 10/29/2023 Hospital discharge follow-up 10/29/2023 Leukocytosis 10/29/2023 Abdominal pain 10/29/2023 Obesity (BMI 30-39.9) 10/29/2023 Pre-operative examination 10/29/2023 Hypercholesteremia 10/29/2023 Unilateral primary osteoarthritis, right knee Ulcer of heel and midfoot 10/29/2023 Thrombocytopenia 10/29/2023 Thoracic back sprain 10/29/2023 Status post total right knee replacement 024 Splenomegaly 10/29/2023 Special screening for malignant neoplasm of pros manzo 10/29/2023 Sciatica 10/29/2023 Sciatica of left side 10/29/2023 Right kidney stone 10/29/2023 Thyroid nodule 09/18/2023 Assessment & Plan (09/18/2023 1:27 PM CDT): Ultrasound guided biopsy of Left Thyroid Nodule Bilateral impacted cerumen 09/18/2023 Assessment & Plan (09/18/2023 3:08 PM CDT): Avoid ear cleaning techniques Continue Hearing aids Cauda equina syndrome 04/18/2023 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 Continue Lyrica 300 mg at bedtime. He is going to try to wean down on Lyrica by not taking the 6:00 a.m. dose of 150 mg. If he is able to do this, we will stop this medication. He has coverage for seizures with his lacosamide, levetiracetam, and zonisamide. 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 Continue zonisamide 200 mg at bedtime. Transient ischemic attack (TIA) 08/29/2017 Abdominal pain, LLQ (left lower quadrant) 2013 Splenomegaly 04/04/2014 DM (diabetes mellitus) type II controlled, neurological manifestation 10/22/2013 Need for prophylactic vaccin ation and inoculation against influenza 03/06/2013 Seizure 02/12/2013 Overview (08/30/2016): Seizure Assessment & Plan (07/23/2024 10:52 AM CYLINDER BATCHER): The patient remains seizure-free on his current medications. Continue lacosamide 100 mg Continue Keppra a 1000 mg in the morning and 1500 mg in the p.m.. He is also on Lyrica and zonisamide which can also help treat seizures. Assessment & Plan (04/22/2024 8:17 AM CYLINDER BATCHER): The patient has on multiple seizure medications include Vimpat 100 mg daily, Keppra 1000 mg in the morning and 1500 mg at night, Lyrica which she takes mostly for neuropathy, and zonisamide which he takes mostly for essential tremors. He reports no seizures for several years he wishes to decrease his Keppra. We discussed therapeutic options and we will decrease the Keppra to a 1000 mg twice a day at his request. I did warn him that seizures can occur when we start weaning down medications. He is aware of this. He exercises seizure precautions Continue Vimpat, Lyrica and zonisamide at current dose. Idiopathic peripheral neuropathy 02/12/2013 Overview (09/01/2016): Neuropathy Assessment & Plan (10/29/2023 3:22 PM CDT): The patient is currently on Lyrica for his neuropathy. He reports that he does have dysesthetic pain towards the end of the dose. He is tried lidocaine patches in the past without benefit. We will continue him on Lyrica at his current dose. Headache 02/12/2013 Overview (09/01/2016): Headache Need for Streptococcus pneumoniae vaccination Urinary incontinence 04/06/2009 Retinal detachment 07/15/2007 Pain in joint, shoulder region 09/24/2006 Benign essential hypertension 08/07/2006 Benign essential hypertension 08/07/2006 Primary localized osteoarthrosis, hand 6 Cataract 09/08/2004 Special screening for malignant neoplasm of pros manzo 03/02/2004 Diabetes mellitus 02/04/2003 Esophageal reflux 03/14/2002 Benign neoplasm of cerebral meninges 07/17/2000 Gout 07/12/2000 Social History Tobacco Use Types Packs/Day Years Used Date Smoking Tobacco: Never Smokeless Tobacco: Never Tobacco Cessation:Counseling Given: Not Answered Alcohol Use Standard Drinks/Week Comments No 0 (1 standard drink = 0.6 oz pur e alcohol) AUDIT-C Answer Date Recorded Frequency of Alcohol Consumption Not on file 06/28/2023 Q2: How many drinks containi ng alcohol do you have on a typical day when you are drinking? Patient does not drink Frequency of Binge Drinking Not on file 05/2023 Personal Safety Answer Date Recorded Have you ever been in or are you currently in a harmful physical or emotional relationship or is someone making you feel afraid or unsafe? Denies 10/09/2023 Sex and Gender Information Value Date Recorded Sex Assigned at Not on file Legal Sex Male 3:24 PM CYLINDER BATCHER Gender Identity Not on file Sexual Orientation Not on file Last Filed Vital Signs Vital Sign Reading Time Taken Comments Blood Pressure 155/79 07/23/2024 10:19 AM CYLINDER BATCHER Pulse 85 10/29/2023 2:38 PM CDT Temperature 36.4 C (97.5 F) 10/09/2023 9:45 AM CDT Respiratory Rate 20 10/29/2023 2:38 PM CDT Oxygen Saturation 97% 10/29/2023 2:38 PM CDT Inhaled Oxygen Concentration - - Weight 101.6 kg (224 lb) 07/23/2024 10:19 AM CYLINDER BATCHER Height 175.3 cm (5' 9 ) 07/23/2024 10:19 AM CYLINDER BATCHER Body Mass Index 33.08 07/23/2024 10:19 AM CYLINDER BATCHER Plan of Treatment Not on file Insurance [employer] MEDICARE PPO [employer] MED[employer] PPO [employer] [place] [address] Care Teams Corn Grinder Relationship Specialty Start Date End Date Redd De Anda MD PCP - General Internal Medicine 06/16/22
--- OUTSIDE RECORDS SUMMARY | 2024-10-08 11:51 | XMS_ITS | Clinical Summary ---
Author Organization [facility] Address [address] [place] [address] Care Team Providers Care Biomedical Service Engineer Name Role Phone Eliceo Templeton RN Unavailable [phone] Casie Pruett RN Unavailable Unava Redd Barbour MD Primary Care Provider [phone] Source Comments [facility],non-owned Affiliates and Associated Physician Practices is amultiple site organization consisting of ambulatory clinics and hospital sitesin [place], [place], [place] and [place]. This disclosure is being madepursuant to the Care Everywhere program and may not contain all information available regarding this patient. Last updated 18.[facility] Allergies Active Allergy Reactions Criticality Noted Date Comments Codeine 02/21/2010 Gets really hyper Empagliflozin LINUX SYSTEM ENGINEER Dysfunction 05/14/2022 Euglycemic dka Medications * Be aware that medications may not be up to date on this document. Alwaysverify current medications with the patient. atorvastatin (Lipitor) 40 MG tablet Take 1 (one) tablet by mouth once daily 12/28/19 22 Active pantoprazole EC (Protonix) 40 MG tablet Take 1 (one) tablet by mouth once daily Active acetaminophen (Tylenol) 500 MG tabletIndicatio ns:Pain Take 2 (two) tablets by mouth every 4 hours Reasons: Pain Active gabapentin (Neurontin) 300 MG capsule Take 2 (two) capsules by mouth 3 times daily 11/10/19 23 Active levETIRAcetam (Keppra) 1000 MG tablet Take 1 (one) tablet by mouth once daily 11/10/19 23 Active levETIRAcetam (Keppra) 750 MG tablet Take 2 (two) tablets by mouth at bedtime 11/10/19 Active zonisamide (Zonegran) 100 MG capsule Take 2 (two) capsules by mouth once daily 11/10/19 Active insulin glargine (Lantus/Semglee ) 100 units/mL pen Inject 40 (forty) Units subcutaneously once daily 11/10/19 Active insulin lispro (HumaLOG;ADMelo g) 100 UNIT/ML pen Inject 5 (five) Units subcutaneously 3 times daily with meals 11/10/19 Active insulin lispro (HumaLOG;ADMelo g) 100 UNIT/ML pen Inject 0 (zero) Units to 12 (twelve) Units subcutaneously 3 times daily with meals 11/10/19 Active lidocaine (Lidoderm) 5 % patch Apply 1 (one) patch to skin every 24 hours Apply patch to most painful area and remove after 12 hours. May reapply a new patch 12 hours later. 11/10/19 Active polyethylene glycol 3350 (Miralax) 17 g packet Take 17 (seventeen) g by mouth once daily 11/10/19 Active senna (Senokot) 8.6 MG tablet Take 1 (one) tablet by mouth once daily 11/10/19 Active tamsulosin (Flomax) 0.4 MG capsule Take 1 (one) capsule by mouth at bedtime At the same time every day after a meal. 11/10/19 Active Benzocaine-Ment hol (throat lozenge) Take 1 (one) lozenge by mouth every 2 hours as needed for Sore Throat 11/10/19 Active multivitamin daily tablet Take 1 (one) tablet by mouth daily with lunch 11/10/19 Active vitamin D3 (Cholecalcifero l) 25 MCG (1000 UNITS) tablet Take 1 (one) tablet by mouth once daily 11/10/19 Active oxyCODONE, immediate release, (Roxicodone) 10 MG tabletIndicatio ns:Chronic bilateral low back pain with left-sided sciatica,S/P lumbar laminectomy Take 1 (one) tablet by mouth every 4 hours as needed 12 tablet 11/10/19 Active oxyCODONE, immediate release, (Roxicodone) 5 MG tabletIndicatio ns:Chronic bilateral low back pain with left-sided sciatica,S/P lumbar laminectomy Take 1 (one) tablet by mouth every 6 hours as needed (breakthrough pain only) 12 tablet 11/10/19 23 Active lacosamide (Vimpat) 100 MG tablet Take 1 (one) tablet by mouth once daily 11/10/19 23 Active cyclobenzaprine (Flexeril) 10 MG tablet Take 1 (one) tablet by mouth 3 times daily as needed for Muscle Spasms 30 tablet 12/12/19 23 Active pregabalin (Lyrica) 100 MG capsule 01/16/20 23 Active Active Problems Problem Noted Date Diagnosed Date Peripheral neuropathy 01/08/2023 S/P lumbar laminectomy 11/09/2022 Gait instability 10/28/2022 History of diabetes mellitus 10/28/2022 Slurred speech 05/11/2022 Abdominal pain, LLQ (left lower quadrant) 2013 Splenomegaly 04/04/2014 DM (diabetes mellitus) type II controlled, neurological manifestation 10/22/2013 Hypertriglyceridemia 10/22/2013 HTN (hypertension) Hypercholesteremia Brain tumor Resolved Problems Problem Noted Date Diagnosed Date Resolved Date Cauda equina compression 11/01/2022 Overview (11/01/2022): Post-op day 2, STAT MRI is ordered Fall, initial encounter 10/28/202210/26 Bilateral leg weakness 10/28/202211/09 Urinary incontinence, unspecified type 10/28/2022 10/29/2022 Chronic bilateral low back p ain with left-sided sciatica 10/28/2022 11/09/2022 Altered mental status, unspe cified altered mental status type 05/11/2022 11/09/2022 Acute hyperkalemia 01/20/2019 3 Acute hyperglycemia 01/20/2019 11/05/19 23 Septic shock 01/20/2019 11/04/2022 Chest pain 01/20/2019 11/04/2022 Sepsis due to undetermined organism 01/20/2019 11/04/2022 Acute appendicitis 09/03/2014 3 Leukocytosis 04/04/2014 11/09/2022 Thrombocytopenia, secondary 04/04/2014 11/09/2022 TIA (transient ischemic attack) 10/22/2013 11/09/2022 Immunizations Immunization Administration Dates Next Due INFLUENZA VACCINE, TRIV. (AF LURIA, FLUZONE TRIVALENT; 6MO+) (IIV3) 03/31/2014 Covid [employer] primary monoval ent 12+ yr 0.3mL Purple cap 08/04/2020,07/14/2020 FLU VACCINE QUAD IIV4 SPLIT 0.25 ML IM 03/15/2017 INFLUENZA VACCINE 03/28/2021, 0,02/25/2019,2017,01/26/2017,03/06/2013 INFLUENZA VACCINE, HIGH-DOSE , QUADR. (FLUZONE HIGH-DOSE QUADRIVALENT; 65Y+), 0.7 ML (HD-IIV4) 03/02/2022 PNEUMOCOCCAL PPSV23 07/29/2019,10/18/2016,2009 Pneumococcal Pcv13 Conj 02/25/2017,12/15/2015 TDAP (7yrs+) 08/01/2018,01/03/2012 TDAP, HISTORIC VACCINE 03/17/2022 ZOSTER VACCINE, LIVE 01/03/2012 Zoster Hzv Vacc Recombinant Inj Im 08/02/2020 Family History Medical History Relation Name Comments Diabetes - Type 2 Other Relation Name Status Comments Other Social History Tobacco Use Types Packs/Day Years Used Date Smoking Tobacco: Never Passive Smoke Exposure: Never Smokeless Tobacco: Never Tobacco Cessation:Counseling Given: Not Answered Alcohol Use Standard Drinks/Week Comments Not Currently 0 (1 standard drink = 0.6 oz pur e alcohol) once monthly- one drink AUDIT-C Answer Date Recorded Q1: How often do you have a drink containing alcohol? Never 10/28/2022 Q2: How many drinks containi ng alcohol do you have on a typical day when you are drinking? Patient does not drink Q3: How often do you have si x or more drinks on one occasion? Never 10/28/2022 Overall Financial Resource Strain (CARDIA) Answe r Date Recorded How hard is it for you to pa y for the very basics like food, housing, medical care, and heating? Not hard at all 10/28/2022 [facility] - Occupational Stress Questionnaire Answer Date Recorded Do you feel stress - tense, restless, nervous, or anxious, or unable to sleep at night because your mind is troubled all the time - these days? Not at all 10/28/2022 Hunger Vital Sign Answer Date Recorded Within the past 12 months, y ou worried that your food would run out before you got the money to buy more. Never true 10/29/19 23 Within the past 12 months, t he food you bought just didn't last and you didn't have money to get more. Never true 10/28/2022 PRAPARE - Transportation Answer Date Re corded In the past 12 months, has l ack of transportation kept you from medical appointments or from getting medications? No 07/2022 In the past 12 months, has l ack of transportation kept you from meetings, work, or from getting things needed for daily living? No 10/28/2022 Housing Stability Vital Sign Answer Dagoberto e Recorded In the last 12 months, was t here a time when you were not able to pay the mortgage or rent on time? No 10/28/2022 In the last 12 months, how many places have you lived? 1 10/28/2022 In the last 12 months, was t here a time when you did not have a steady place to sleep or slept in a long term (including now)? 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 on file Not on file Not on file Last Filed Vital Signs Vital Sign Reading Time Taken Comments Blood Pressure 153/92 01/08/2023 10:32 AM CDT Pulse 85 01/08/2023 10:32 AM CDT Temperature 36.4 C (97.6 F) 01/08/2023 10:32 AM CDT Respiratory Rate 14 01/08/2023 10:32 AM CDT Oxygen Saturation 100% 01/08/2023 10:32 AM CDT Inhaled Oxygen Concentration - - Weight 86.2 kg (190 lb) 01/16/2023 1:10 PM CDT Height 175.3 cm (5' 9 ) 01/16/2023 1:10 PM CDT Body Mass Index 28.06 01/16/2023 1:10 PM CDT Plan of Treatment Health Maintenance Due Date Last Done Comments COLOGUARD (AGES 45-75) - COLON CA SCREENING [address] COLONOGRAPHY - COLON CA SCREENING 1950 FIT - COLON CA SCREENING 1950 FLEX SIG - COLON CA SCREENING 1950 Respiratory Syncytial Virus (RSV) Vaccine Pt: or over 60 yrs (1 - Risk 60-74 years 1-dose series) 2010 DIABETES-FOOT EXAM WITH MONOFILAMENT 08/11/2019 ZOSTER VACCINE (3 of 3) 09/27/2020 08/02/2020, 01/02 DIABETES-HGB A1C 04/30/2023 10/29/2022, , 03/02/2022, Additional history exists DIABETES-SERUM CREATININE 01/09/20242022, 11/08/2022, 11/07/2022, Additional history exists COVID-19 VACCINE ( season) 2024 03/16/2022, 04/25/2021, 08/04/2020, Additional history exists DIABETES RETINOPATHY SCREENING 02/04/2024 02/03/2022, 09/01/2021 DEPRESSION SCREENING 05/28/2024 DIABETES - URINE PROTEIN SCREENING 05/28/2024 05/17/2022, 09/06/2021, 09/06/2021, Additional history exists MEDICARE AWV CALENDAR YEAR 2024 INFLUENZA VACCINE (Season Ended) 2025 03/02/2022, 02/25/2022, 03/28/2021, Additional history exists COLONOSCOPY - COLON CA SCREENING 06/18/2029 06/18/2019 Colorectal Cancer Screening 06/18/2029 DTAP/TDAP/TD VACCINES (4 - Td or Tdap) 03/17/2032 03/17/2022, 08/01/2018, 01/03/2012 PNEUMOCOCCAL VACCINE 50+ Completed 020, 02/25/2017, 10/18/2016, Additional history exists HEPATITIS C SCREENING Completed 11/04/2022, 014 HEPATITIS B VACCINE Aged Out No longe r eligible based on patient's age to complete this topic HIB VACCINE Aged Out No longer eligi ble based on patient's age to complete this topic HPV VACCINE Aged Out No longer eligi ble based on patient's age to complete this topic MENINGOCOCCAL (Group B) VACCINE SHARED DECISION-MAKING Aged Out No longer eligible based on patient's age to complete this topic MENINGOCOCCAL GROUPS A/C/Y/W VACCINE Aged Out No longer eligible based on patient's age to complete this topic Medical Devices Implanted Type [employer] Testing Group Leader Device Identifier Shelf Expiration Date Model / Serial / Lot Cmnt Bone Co Hv 40gm Implanted:Qty: 2 on 09/27/2016 by Enmanuel Cerrato MD at [facility] [employer] 05/27/2018 [id number] / / [id number] Cruciate Retaining Legion Nonporous Femoral Component Implanted:Qty: 1 on 09/27/2016 by Enmanuel Cerrato MD at [facility] Right: Knee [employer] 05/09/2025 [id number] / / [id number] Description:Note: explanted 1 x existing screw. Disposition: trash. Onelia 11 Right Non Porous Tibial Baseplate Implanted:Qty: 1 on 09/27/2016 by Enmanuel Cerrato MD at [facility] Right: Knee [employer] 03/11/2026 [id number] / / [id number] Resurfacing Round Patellar Component Implanted:Qty: 1 on 09/27/2016 by Enmanuel Cerrato MD at [facility] Right: Knee [employer] 01/21/2026 [id number] / / [id number] High Flexion Articular Insert Implanted:Qty: 1 on 09/27/2016 by Enmanuel Cerrato MD at [facility] Right: Knee [employer] 07/02/2025 [id number] / / [id number] George Shai Tib Uncem Fem Implanted:Qty: 1 on 09/27/2016 by Enmanuel Cerrato MD at [facility] [employer] BILL ONLY SHAI TIB UNCEM FEM SNORTHO / / Procedures Procedure Name Priority Date/Time Associated Diagnosis Comments COMPREHENSIVE METABOLIC PANEL STAT 01/08/2023 12:02 PM CDT HEPATITIS C AB SCREEN RFLX NAAT QUANT AM Draw 11/04/2022 4:26 AM CDT HEMOGLOBIN A1C Routine 10/29/2022 5:42 AM CDT MICROALB/CREAT RATIO URINE RANDOM PANEL Routine 05/17/2022 9:16 PM EXTRUSION ENGINEER from Last 3 Months or Most Recently Relevant to Health Maintenance Results * (ABNORMAL) COMPREHENSIVE METABOLIC PANEL (01/08/2023 12:02 PM CDT) BUN 15 7 - 26 mg/dL 01/08/2023 12:38 PM [facility] Creatinine 0.72 0.71 - 1.16 mg/dL 01/08/2023 12:38 PM [facility] Sodium 140 136 - 145 mmol/L 01/08/2023 12:38 PM [facility] Potassium 4.1 3.5 - 4.5 mmol/L 01/08/2023 12:38 PM [facility] Chloride 110(H) 98 - 107 mmol/L 01/08/2023 12:38 PM [facility] CO2 21(L) 22 - 29 mmol/L 01/08/2023 12:38 PM [facility] Glucose 171(H) 70 - 115 mg/dL 01/08/2023 12:38 PM [facility] Calcium 9.3 8.4 - 10.2 mg/dL 01/08/2023 12:38 PM [facility] Protein Total 7.3 6.0 - 8.3 g/dL 01/08/2023 12:38 PM [facility] Albumin 4.0 3.4 - 5.0 g/dL 01/08/2023 12:38 PM [facility] Bilirubin Total 0.3 0.2 - 1.2 mg/dL 01/08/2023 12:38 PM [facility] Alkaline Phosphatase 85 40 - 150 U/L 01/08/2023 12:38 PM [facility] ALT 15 5 - 55 U/L 01/08/2023 12:38 PM [facility] AST 21 5 - 34 U/L 01/08/2023 12:38 PM [facility] Anion Gap 13 8 - 18 01/08/2023 12:38 PM [facility] BUN/Creatinine Ratio 21 7 - 23 01/08/2023 12:38 PM [facility] Osmolality Calculated 295 270 - 300 mOsm/kg 01/08/2023 12:38 PM [facility] Albumin/Globulin Ratio 1.2 1.1 - 2.3 01/08/2023 12:38 PM [facility] eGFR by CKD-EPI >90 >=90 mL/min/1.7 3 m2 01/08/2023 12:38 PM [facility] Blood BLOOD SPECIMEN / Unknown Venipuncture / Unknown 01/08/2023 12:02 PM CDT 01/08/2023 12:13 PM CDT us Joao PALOMINO-C LAB - CHEMISTRY OR DERABLES Final Result [facility] [address] [place] [id number], [facility] [phone] * HEPATITIS C AB SCREEN RFLX NAAT QUANT (11/04/2022 4:26 AM CDT) Hepatitis C Antibody Non-react kinjal Non-reac tive 11/04/2022 6:27 AM [facility] Comment:Hepatitis C Antibody screen indicates no serologic evidence of past or current infection with Hepatitis C Virus. Patients with unexplained liver disease who are immunocompromised or suspected of having acute Hepatitis C infection may benefit from Nucleic Acid Test (GAYLE) for Hepatitis C Viral RNA to confirm Hepatitis C status. Blood BLOOD SPECIMEN / Unknown Lab Venipuncture / Unknown 11/04/2022 4:26 AM CDT 11/04/2022 5:44 AM CDT us Daryl Nicolas APRNPETER [facility] LAB - CHEMISTRY ORDERABL ES Final Result Performing Organization Address City/[facility]/ZIP Co de Phone Number [facility] [address] [place] [address], [facility] [phone] * (ABNORMAL) HEMOGLOBIN A1C (10/29/2022 5:42 AM CDT) Hemoglobin A1c 6.9(H) <=5.6 % 10/30/2022 1:24 PM CDT [facility] Estimated Average Glucose 151 mg/dL 10/30/2022 1:24 PM CDT [facility] Comment: HbA1c Interpretation: Normal : < 5.7% Pre-diabetes: 5.7-6.4% Diabetes: Equal to or greater than 6.5% Test results diagnostic of diabetes should be repeated for confirmation. Treatment target values recommended by ADA and other clinical organizations should be used to evaluate metabolic control in patients. Reference: [place] Diabetes Association, Standards of Care in Diabetes -2020 In patients 70 years and older consider HbA1c target range of 7.0-7.5% (Reference: Jonny Cardona et al. JAMDA. 2012) The Sebia assay for the measurement of HbA1c is a National Glycohemoglobin Standardization Program (NGSP) certified method. Blood BLOOD SPECIMEN / Unknown Venipuncture / Unknown 10/29/2022 5:42 AM CDT 10/29/2022 6:04 AM CDT us Chente Espinosa MD LAB - CHEMISTRY ORDERABLES Final Result Performing Organization Address City/[facility]/ZIP Co de Phone Number [facility] [address] [place] [address], [facility] [phone] * (ABNORMAL) MICROALB/CREAT RATIO URINE RANDOM PANEL (05/17/2022 9:16 PM EXTRUSION ENGINEER) Creatinine Urine 83.67 mg/dL 05/17/20 9:55 PM EXTRUSION ENGINEER [facility] Microalbumin Urine 13.8 mg/dL 05/17/2022 9:55 PM EXTRUSION ENGINEER [facility] Microalbumin/Crea tinine Ratio 164(H) <30 mg/g 05/17/2022 9:55 PM EXTRUSION ENGINEER [facility] Urine URINE SPECIMEN OBTAINED BY CLEAN CATCH PROCEDURE / Unknown Collection / Unknown 05/17/2022 9:16 PM EXTRUSION ENGINEER 05/17/2022 9:35 PM EXTRUSION ENGINEER us Trinidad Mckenzie MD LAB - URINE CHEMISTRY ORDERABLES Final Result [facility] [address] [place] [address] from Last 3 Months or Most Recently Relevant to Health Maintenance Insurance [employer] MEDICARE ADV HMO & PPO Advance Directives * Full Code (Latest Code Status on File) Date Activated Date Inactivated Comments 10/28/2022 6:00 PM 11/09/2022 5:38 PM * Full Code Date Activated Date Inactivated Comments 05/11/2022 4:19 PM 05/23/2022 2:23 PM * Full Code Date Activated Date Inactivated Comments 01/20/2019 11:21 PM 01/23/2019 6:44 PM * Full Code Date Activated Date Inactivated Comments 09/27/2016 10:47 AM 09/30/2016 2:08 PM * Full Code Date Activated Date Inactivated Comments 09/02/2014 4:13 PM 09/03/2014 6:45 PM Care Teams Biomedical Service Engineer Relationship Specialty Start Date End Date Redd De Anda MD [address], [place] [id number] PCP - General Internal Medicine 05/11/22 Eliceo Templeton, RN Associate Professor Of Biblical Studies 10/22/13 Gideon-Casie Celeste RN Registered Nurse 09/28/16
--- OUTSIDE RECORDS SUMMARY | 2024-10-08 11:51 | XMS_ITS | Clinical Summary ---
Author Organization [facility] [address] Address [address] [place] [address] Care Team Providers Care Hanging Flags Decorator Name Role Phone Redd De Anda MD Primary Care Provider [phone] Allergies Active Allergy Reactions Criticality Noted Date Comments Codeine Other (See comments) Reaction: HYPERACTIVITY, , Empagliflozin Other (See comments) Low 05/14/2022 Other reaction(s): BUILDING SERVICES COORDINATOR Dysfunction Euglycemic dka Euglycemic dka Euglycemic dka Other reaction(s): BUILDING SERVICES COORDINATOR Dysfunction Euglycemic dka Medications insulin aspart (NovoLOG) [...] (20 mg total) by mouth daily 05/23/20 22 Active FreeStyle Carley 2 Sensor kit Apply [...] TABLET (1000 MG) IN THE AM, 1 /2 (1500 MG) TABLETS IN THE PM 225 [...] 12/27/2022 Assessment & Plan (07/23/2024 10:57 AM HYDRO OPERATOR): The patient's neuropathy symptoms remained stable. Continue [...] 08/29/2017 Assessment & Plan (07/23/2024 10:56 AM HYDRO OPERATOR): Essential tremor symptoms remained stable. Continue zonisamide 200 mg at bedtime. Transient ischemic attack (TIA) 08/29/2017 Abdominal pain, LLQ (left lower quadrant) 2013 Splenomegaly 04/04/2014 DM (diabetes mellitus) type II controlled, neurological manifestation 10/22/2013 Need for prophylactic vaccin ation and inoculation against influenza 03/06/2013 Seizure 02/12/2013 Overview (08/30/2016): Seizure Assessment & Plan (07/23/2024 10:52 AM HYDRO OPERATOR): The patient remains seizure-free on his current medications. Continue lacosamide 100 mg Continue Keppra a 1000 mg in the morning and 1500 mg in the p.m.. He is also on Lyrica and zonisamide which can also help treat seizures. Assessment & Plan (04/22/2024 8:17 AM HYDRO OPERATOR): The patient has on multiple seizure medications [...] neoplasm of cerebral meninges 07/17/2000 Gout 07/12/2000 Encounters Date Type Department Care Team Description 07/23/2024 10:30 AM HYDRO OPERATOR [facility] [address] [place] [address] [phone] Yo Cheng MD Seizure (HCC) (Primary Dx); Essential tremor; Diabetic polyneuropathy associated with type 2 diabetes mellitus (HCC) from Last 3 Months Surgical History Surgery Date Site/Laterality Comments KNEE ARTHROPLASTY Knee replacement OTHER SURGICAL HISTORY left temporal meningioma: surgical removal Medical History Medical History Date Comments Hx Other Medical 1996 left temporal m eningioma; Outcome: successful Intracranial tumor (HCC) Brain t umor Diabetes mellitus (HCC) Diabetes Carpal tunnel syndrome Carpal tu nnel/peripheral nerve Epilepsy (HCC) Epilepsy Hx Other Medical Headache, migra ine Peripheral nerve disease Periphe ral nerve disease Hypertension Hypertension Osteoarthritis Osteoarthritis Hx Other Medical Hearing impairm ent Hyperlipidemia Hyperlipidemia Adiposity Obesity Family History Medical History Relation Name Comments Other Other 2 No family histo ry of Epilepsy; Relation Name Status Comments Other 1 Alive Other 2 Social History Tobacco Use Types Packs/Day Years [...] on file Legal Sex Male 3:24 PM HYDRO OPERATOR Gender Identity Not on file Sexual Orientation Not on file Obstetrics History Last Filed Vital Signs Vital Sign Reading Time Taken Comments Blood Pressure 155/79 07/23/2024 10:19 AM HYDRO OPERATOR Pulse 85 10/29/2023 2:38 PM CDT Temperature 36.4 C (97.5 F) 10/09/2023 9:45 AM CDT Respiratory Rate 20 10/29/2023 2:38 PM CDT Oxygen Saturation 97% 10/29/2023 2:38 PM CDT Inhaled Oxygen Concentration - - Weight 101.6 kg (224 lb) 07/23/2024 10:19 AM HYDRO OPERATOR Height 175.3 cm (5' 9 ) 07/23/2024 10:19 AM HYDRO OPERATOR Body Mass Index 33.08 07/23/2024 10:19 AM HYDRO OPERATOR Plan of Treatment Health Maintenance Due Date Last Done Comments Albumin Creatinine Ratio, Urine 1950 Colon Cancer Screening-Colonoscopy 1950 Depression Screening 1950 Hepatitis C Screening 1950 eGFR 1950 Dilated Eye Exam 1950 Foot Exam 1950 Lipid Panel 1950 Hepatitis B Screening 02/15/1968 Well Visit 65+ 2015 Zoster Vaccine (3 of 3) 09/27/2020 08/02/2020, 01/02 Hemoglobin A1C 04/30/2023 10/29/2022, 04/27, 01/21/2019 Covid-19 Vaccine (4 - 2023-2 5 season) 2024 03/16/2022, 08/04/2020, 07/14/2020 Fall Risk Assessment 10/08/2024 10/09/2023 Influenza Vaccine (Season Ended) 2025 03/02/2022, 03/28/2021, 02/26/2020, Additional history exists DTaP/Tdap/Td Vaccine (4 - Td or Tdap) 03/17/2032 03/17/2022, 08/01/2018, 01/03/2012 Pneumococcal vaccine 65+ Completed 020, 02/25/2017, 10/18/2016, Additional history exists Insurance [employer] CHOICE MEDICARE PPO Care Teams Hanging Flags Decorator Relationship Specialty Start Date End Date Redd De Anda MD PCP - General Internal Medicine 06/16/22
--- OUTSIDE RECORDS SUMMARY | 2024-10-08 11:51 | XMS_ITS ---
Author Organization [facility] Care Team Providers Care Cooler Room Worker Name Role Phone Zuleyma Hackett Unavailable Unavaila ble Rudolph, Niko Mcdonald Unavailable Unavailable Ampadu, Yanet Unavailable Unavailable Allergies and adverse reactions Code CodeSystem Substance Reaction Severity StartDate Concern Status 3950275 RXNORM Empagliflozin Unknown 01/19/2023 active 2670 RXNORM Codeine Unknown 01/19/2023 active Care Team Name Role Address Phone Organization Dates Niko Galdamez PCP [address] [place], [place], [facility], [facility] (Office): [facility] 01/19/2023 - 01/20/2023 Zuleyma Hackett [address] (Office): : [facility] 01/19/2023 - 01/20/2023 Yanet Ampadu [address] [place], [place], [facility], [facility] (Office): : [facility] 01/19/2023 - 01/20/2023 Mental Status Section Date Assessment Total Score Description 01/20/2023 CAM 0 No delirium ind icated 01/20/2023 CAM 0 No delirium ind icated Problems Problem # Description Date of onset Resolved Date Code CodeSystem Concern Status 1 ANEMIA, UNSPECIFIED [address] active 2 CAUDA EQUINA SYNDROME [address] active 3 EPILEPSY, UNSPECIFIED, NOT INTRACTABLE, WITHOUT STATUS EPILEPTICUS [address] active 4 ESSENTIAL (PRIMARY) HYPERTENSION [address] active 5 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 [address] active 6 FUSION OF SPINE, LUMBAR REGION [address] active 7 HYPERLIPIDEMIA, UNSPECIFIED [address] active 8 MUSCLE WEAKNESS (GENERALIZED) [address] active 9 NEOPLASM OF UNCERTAIN BEHAVIOR OF BRAIN, INFRATENTORIAL [address] active 10 NONTRAUMATIC HEMATOMA OF SOFT TISSUE [address] active 11 OTHER INJURY OF UNSPECIFIED BODY REGION, SUBSEQUENT ENCOUNTER [address] active 12 PARESTHESIA OF SKIN [address] active 13 POLYNEUROPATHY, UNSPECIFIED [address] active 14 REPEATED FALLS [address] active 15 TYPE 2 DIABETES MELLITUS WITH DIABETIC NEUROPATHY, UNSPECIFIED [address] active Reason for Referral No Reasons for Referral Entered Social History Social History Observation Description Start Date End Date Code Code System Current Smoking Status Tobacco smoking consumption unknown 845948946 SNOMED CT Sex Assigned At Male 1950 99440-9 LOINC Gender Identity Male 08209863116770 [address] Vital Signs Code Code System Vitals Name Values and Units Timing Information 54541-3 LOINC Pain Level Value=0.0 01/20/2023 03945-6 LOINC Weight Cmctb=193.0 Units=Lbs 8302-2 LOINC Height Value=69.0 Units=Inches 01/19/2023 2339-0 LOINC Blood Sugar Ehmuo=054.0 Units=mg/dL 01/19/2023 9279-1 [facility] Respiratory Rate Value=18.0 Units=/m in 01/19/2023 8462-4 [facility] Blood Pressure-Diastolic Value=69 Un its=mmHg 01/19/2023 8480-6 [facility] Blood Pressure-Systolic Yyppl=482 Un its=mmHg 01/19/2023 8310-5 [facility] Body Temperature Value=97.4 Units= F 01/19/2023 8867-4 [facility] Heart rate Value=95.0 Units=/min 97315-5 [facility] O2 % BldC Oximetry Value=97.0 Units= % 01/19/2023
--- OUTSIDE RECORDS SUMMARY | 2024-10-08 11:51 | XMS_ITS | Clinical Summary ---
Author Organization [facility] Address [address] [place] [address] Phone Care Team Providers Care Arts Administrator Name Role Phone Redd De Anda MD Primary Care Provider [phone] Allergies Active Allergy Reactions Criticality Noted Date Comments Codeine Other (See Comments) 01/16/2014 Extreme insomnia Empagliflozin Other (See Comments) 05/14/2022 Euglycemic dka Other reaction(s): AIRCRAFT QUALITY CONTROL INSPECTOR Dysfunction Euglycemic dka Medications insulin aspart protamine-aspar t (NovoLOG MIX 70-30) 100 unit/mL (70-30) pen syringe Inject 57 Units by subcutaneous injection 2 times daily 57U twice per day. Once in the morning with breakfast and once at night . Active acetaminophen (TYLENOL) 500 mg tablet Take 1,000 mg by mouth every 6 hours as needed. Active atorvastatin (LIPITOR) 40 mg tablet Take 40 mg by mouth daily. 2 Active pregabalin (LYRICA) 100 mg Capsule Take 100 mg by mouth daily. 3 Active pregabalin (LYRICA) 150 mg Capsule Take 300 mg by mouth daily at bedtime. 3 Active insulin glargine (LANTUS) 100 unit/mL pen syringe Inject 50 Units by subcutaneous injection daily. Active lacosamide (VIMPAT) 100 mg tablet Take 100 mg by mouth daily. 3 Active levETIRAcetam (KEPPRA) 1,000 mg tablet Take 1,000 mg by mouth daily. 3 Active levETIRAcetam (KEPPRA) 750 mg Tablet Take 1,500 mg by mouth daily at bedtime. 3 Active pantoprazole (PROTONIX) 40 mg Tablet, Delayed Release (E.C.) Take 40 mg by mouth daily. 2 Active Zonisamide (ZONEGRAN) 100 mg capsule Take 100 mg by mouth 2 times daily. 3 Active traMADoL (ULTRAM) 50 mg tabletIndicatio ns:Rib pain Take 1 Tablet (50 mg) by mouth every 8 hours as needed for Pain. 15 Tablet 4 Active Active Problems No known active problems Encounters Date Type Department Care Team Description 09/09/2024 External Device Data [facility] ABSTRACTION Provider, Abstract 09/02/2024 External Device Data [facility] ABSTRACTION Provider, Abstract 08/13/2024 External Device Data [facility] ABSTRACTION Provider, Abstract 08/04/2024 External Device Data [facility] ABSTRACTION Provider, Abstract 07/22/2024 External Device Data [facility] ABSTRACTION Provider, Abstract from Last 3 Months Family History Medical History Relation Name Comments Diabetes Brother 1 Diabetes Brother 2 No Known Problems Daughter No Known Problems Father Diabetes Mother Diabetes Sister No Known Problems Son Relation Name Status Comments Brother 1 Alive Brother 2 Alive Daughter Alive Father Mother Sister Alive Son Alive Social History Tobacco Use Types Packs/Day Years Used Date Smoking Tobacco: Never Tobacco Cessation:Counseling Given: Not Answered Alcohol Use Standard Drinks/Week Comments No 0 (1 standard drink = 0.6 oz pur e alcohol) Sex and Gender Information Value Date Recorded Sex Assigned at Not on file Legal Sex Male 2:53 AM ADVISOR TO COMMAND IN COMBAT Gender Identity Not on file Sexual Orientation Not on file Occupation Industry Job Start Date Job End Date Not on file Not on file Not on file Not on file Last Filed Vital Signs Vital Sign Reading Time Taken Comments Blood Pressure 124/69 04/11/2024 11:16 AM ADVISOR TO COMMAND IN COMBAT Pulse 72 04/11/2024 11:16 AM ADVISOR TO COMMAND IN COMBAT Temperature 36.8 C (98.2 F) 04/11/2024 11:16 AM ADVISOR TO COMMAND IN COMBAT Respiratory Rate 14 04/11/2024 11:1 6 AM ADVISOR TO COMMAND IN COMBAT Oxygen Saturation 97% 04/11/2024 11: 16 AM ADVISOR TO COMMAND IN COMBAT Inhaled Oxygen Concentration - - Weight 101.2 kg (223 lb 3.2 oz) 024 11:16 AM ADVISOR TO COMMAND IN COMBAT Height 175.3 cm (5' 9 ) 03/27/2023 1:38 PM CDT Body Mass Index 32.96 03/27/2023 1:38 PM CDT Plan of Treatment Upcoming Encounters Date Type Department Care Team (Late st Contact Info) Description 10/09/2024 3:45 PM CDT Office Visit [facility] Oncology and Hematology - [address] [facility] [address] [place] [address] Rey Reyna MD [address] [place] [address] Health Maintenance Due Date Last Done Comments DIABETES ANNUAL FOOT EXAM 02/15/1968 DIABETES MICROALBUMIN ANNUAL SCREEN 02/15/1968 LDL CHOLESTEROL ANNUAL 02/15/1968 COLORECTAL SCREENING 1995 Colorectal Cancer Screening 1995 FIT-DNA Q 3 years 1995 FIT/FOBT Q 1 year 1995 Flex Sig/CT Colonography Q 5 years 1995 RSV VACCINE (60+ or ) (1 - Risk 60-74 years 1-dose series) 2010 ZOSTER VACCINE (3 of 3) 09/27/2020 08/02/2020, 01/02 DIABETES HBA1C Q 6 MONTHS 04/30/2023 10/29/2022, INFLUENZA VACCINE (#1) 2023 , 03/15/2017, 03/31/2014 [place]) Preventative Visit/Annual Wellness Visit 05/28/2024 DIABETES ANNUAL RETINAL EXAM 02/28/2025 02/29/2024, 02/03/2022 DTAP/TDAP/TD VACCINES (4 - T d or Tdap) 03/17/2032 03/17/2022, 08/01/2018, 01/03/2012 PNEUMOCOCCAL VACCINE 50+ YEARS Completed 0 07/29/2019, 02/25/2017, 10/18/2016, Additional history exists Medical Devices Implanted Type Area Transliterator Device Identifier Shelf Expiration Date Model / Serial / Lot Knee Knee Insurance HU[employer] CHOICE PPO MCR HU[employer] CHOICE PPO MCR Advance Directives For more information, please contact: [phone] * Full Code (Latest Code Status on File) Date Activated Date Inactivated Comments 10/16/2018 12:47 AM 10/17/2018 4:54 PM * Full Code Date Activated Date Inactivated Comments 01/27/2014 8:03 AM 01/27/2014 12:09 PM * Full Code Date Activated Date Inactivated Comments 01/27/2014 7:45 AM 01/27/2014 8:03 AM Care Teams Arts Administrator Relationship Specialty Start Date End Date Redd De Anda MD [address] [place] [address] PCP - General Internal Medicine 03/27/23
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
[2024-10-08 12:04] LABS: Basophils Absolute Auto 0.1 K/mm3 (0.0-0.1); Basophils Percent Auto 0.9 % (0.2-1.2); Eosinophils Absolute Auto 0.1 K/mm3 (0-0.3); Eosinophils Percent Auto 1.9 % (0-4.4); Hematocrit 46.3 % (42.0-52.0); Immature Granulocyte Absolute 0.02 K/mm3 (0.00-0.031); Immature Granulocyte Percent A 0.3 % (0-0.5); Immature Platelet Fraction Pct 10.3 % (0.9-11.2); Lymphocytes Absolute Auto 1.82 K/mm3 (0.9-3.2); Mean Corpuscular HGB Conc 32.4 g/dl (32-36); Mean Corpuscular Hemoglobin 28.8 pg (26-34); Mean Corpuscular Volume 88.9 fl (80-100); Mean Platelet Volume 11.7 fl (7.4-10.4); Monocytes Absolute Auto 0.5 K/mm3 (0.1-0.6); Monocytes Percent Auto 7.3 % (2.6-8.5); Neutrophils Absolute Auto 4.2 K/mm3 (1.3-6.7); Neutrophils Percent Auto 62.6 % (45.5-73.1); Platelet Count Result 95 k/mm3 (150-375); Red Blood Count 5.21 M/mm3 (4.6-6.20); Red Cell Distribution Width 14.4 % (11.5-14.5); White Blood Count 6.7 K/mm3 (4.5-10.0)
[2024-10-08 13:47] LABS: Alanine Aminotransferase 36 U/L (6-50); Albumin Level 4.3 g/dL (3.5-5.1); Alkaline Phosphatase 84 U/L (38-126); Anion Gap 10 mmol/L (4-12); Aspartate Amino Transferase 49 U/L (17-59); Bilirubin,Total 0.4 mg/dL (0.2-1.3); Blood Urea Nitrogen 22 mg/dL (9-20); Calcium 8.9 mg/dL (8.4-10.2); Carbon Dioxide 23 mmol/L (22-30); Chloride 109 mmol/L (98-107); Estimated Glomerular Filt Rate > 60; Glucose 189 mg/dL (65-110); Potassium 4.4 mmol/L (3.4-5.0); Sodium 142 mmol/L (137-145)
== END 2024-10-08 11:49 | disposition home or self-care (01) ==
LOC: ANHLAB 11:49
PROVIDERS: PCP Internal Medicine; Visit Provider Internal Medicine Hematology & Oncology
DX: D64.9 Anemia, unspecified (principal)
CPT/HCPCS: 36415; 80053; 85025; 85055

== ENCOUNTER 2024-11-24 11:23 | Inpatient (IN) | payer MEDICARE, SELFPAY ==
--- NOTE | ~2024-11-24 | XR_ITS ---
SMALL BOWEL SERIES ONLY INDICATION: Obstruction TECHNIQUE: Serial plain films oral demonstration of Gastrografin. COMPARISON: CT examination of the abdomen and pelvis dated 11/24/2024 FINDINGS: Gastrografin was followed through the markedly dilated small bowel for a total of 3 hours. Contrast extended to the ascending colon. The markedly distended small bowel persists throughout the examination. While significant propagation was not observed, there did appear to be increased gas within the rectu m. At the 3 hour timeframe, the patient became extremely nauseated and requested cessation of the examin ation. IMPRESSION: Findings consistent with high-grade small bowel obstruction. Would recommend repeat plain film evaluation of the abdomen and pelvis in the morning. Reviewed, dictated and finalized at location A. IMPRESSION: Findings consistent with high-grade small bowel obstruction. Would recommend repeat plain film evaluation of the abdomen and pelvis in the m orning.
--- NOTE | ~2024-11-24 | XR_ITS ---
Exam: Abdomen 1V HISTORY: bowel obstruction COMPARISON: Small bowel follow-through performed approximately 12 hours earlier TECHNIQUE: Supine images of the abdomen FINDINGS: Improved appearance of the small bowel dilatation when compared to previous examination with redemons tration of contrast in the ascending colon. Contrast is now demonstrated within the remainder of the colon and rectum. Mural thickening remains within the proximal jejunum, dilated to 6.6 cm in maximal caliber. Clips within the right upper quadrant. 18 mm calculus projecting over the lower pole of the right kidney, unchanged. IMPRESSION: Improved appearance of small bowel dilatation with contrast now demonstrated within the rectum. Persistent mural thickening within the proximal jejunum dilated to 6.6 cm in maximal caliber. Reviewed, dictated and finalized at location [] IMPRESSION: Improved appearance of small bowel dilatation with contrast now demonstrated wi thin the rectum. Persistent mural thickening within the proximal jejunum dilated to 6.6 cm in ma ximal caliber.
--- NOTE | ~2024-11-24 | XR_ITS ---
Exam: Abdomen 1V HISTORY: Possible small bowel obstruction; RT SIDED ABDOMINAL PAIN COMPARISON: Reference is made with a CT examination of the abdomen and pelvis performed 11/24/2024 TECHNIQUE: Supine and upright images of the abdomen FINDINGS: Multiple air-fluid levels are identified within markedly dilated loops of small bowel with mural thic kening measuring 5.5 cm in greatest caliber. No air is identified within the rectum for which high-grade small bowel obstruction is suspected. No pathologic calcifications are seen. Lung bases are unremarkable. IMPRESSION: High-grade small bowel obstruction, as detailed above. Reviewed, dictated and finalized at location []
--- NOTE | ~2024-11-24 | XR_ITS ---
Exam: Abdomen 1V HISTORY: NG placement COMPARISON: 11/26/2024 TECHNIQUE: Supine images of the lower chest and upper abdomen FINDINGS: Nasogastric tube extends into the left upper quadrant, presumably within the stomach. IMPRESSION: Nasogastric tube in good position and ready for immediate use. Reviewed, dictated and finalized at location A.
--- NOTE | ~2024-11-24 | CT_ITS ---
EXAMINATION: CT abdomen pelvis w con DATE: 11/24/2024 16:05 INDICATION: profound diarrhea, abd pain TECHNIQUE: Computed tomography (CT) of the abdomen and pelvis was performed with 100 mL Omnipaque-350 intravenous contrast. Automated exposure control and iterative reconstruction technique were employe d. The dose-length product was 929.67 mGy-cm. COMPARISON: 08/02/2022; PET/CT 09/20/2023. FINDINGS: Lower thorax: Medial right lower lobe scarring. Coronary artery calcifications. Aortic valve calcific ation. Liver: Normal. Biliary/Gallbladder: Gallbladder is absent. No bile duct dilation. Pancreas: No mass or duct dilation. Spleen: Mildly enlarged. Adrenals:No mass. Kidneys: No hydronephrosis or suspicious mass. 16 mm right lower pole nephrolith. Scattered bilateral subcentimeter hypodensities, too small to characterize but most likely represent cysts. GI tract: Small bowel dilation measuring up to 4.7 cm beginning in the proximal jejunum, with a gradu al decrease in caliber towards the distal bowel. Possible transition point in the region of the termi nal ileum. Uniform bowel wall enhancement. Small amounts of interloop fluid. No wall thickening, pneu matosis, or portal venous gas. No large bowel dilation. Appendix surgically absent. Diverticulosis wi thout diverticulitis. Mesentery/Peritoneum: No mass or free air. Small volume ascites. Mild enlarged mesenteric lymph nodes . Retroperitoneum: No mass. Atherosclerotic calcifications of intra-abdominal arterial vessels. Pelvis: Partially distended urinary bladder with mild wall thickening. Prostatomegaly. Soft Tissues: Soft tissues and body wall unremarkable. Bones: No acute osseous finding. Chronic compression deformity at L1. Posterior decompression at L3- L5. IMPRESSION: Mild splenomegaly. CT findings concerning for partial or early complete small bowel obstruction, candidate transition po int at the terminal ileum. Mild mesenteric lymphadenopathy. Mild bladder wall thickening probably secondary to incomplete distention and/or chronic outlet obstru ction from prostatomegaly. Small volume ascites. Reviewed, dictated and finalized at location K. IMPRESSION: Mild splenomegaly. CT findings concerning for partial or early complete small bowel obstruction, c andidate transition point at the terminal ileum. Mild mesenteric lymphadenopathy. Mild bladder wall thickening probably secondary to incomplete distention and/or chronic outlet obstruction from prostatomegaly. Small volume ascites.
[2024-11-24 11:38] VITALS: BP 121/82; PULSE 89; RESP 20; TEMP 36.6; O2SAT 98
--- OUTSIDE RECORDS SUMMARY | 2024-11-24 11:52 | XMS_ITS | Continuity of Care Document ---
Author Name [facility] Care Team Providers Care Retail Loss Prevention Officer Name Role Phone [facility] Unavailable Unavailable Problems Combined list of problems from [facility] and [facility] facilities. It does not include entries that were removed or entered in error. 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 Diagnosis: ICD-10-CM I10 Essential (primary) hypertension Active Diagnosis [facility] Diagnosis: ICD-10-CM Z71.9 Counseling, unspecified Active Diagnosis [facility] Diagnosis: ICD-10-CM E11.3293 Type 2 diab with mild nonp rtnop without macular edema, bi Active Diagnosis [facility] Diagnosis: ICD-10-CM E11.8 Type 2 diabetes mellitus with unspecified complications Active Diagnosis [facility] Medications Combined list of outpatient medications from [facility] and [facility] facilities.Medications provided include 1) outpatient medications from the last 15 months, and 2) patient-reported medications. Medication Details Route Status Patient Instructions Prescription Expires Prescription Number Last Dispense Date Ordering Provider Order Date Order Qty Source ATORVASTATI N CA 80MG TAB TAKE ONE-HALF TABLET BY MOUTH EVERY EVENING ORAL ACTIVE ELIZABETH ESTEBAN 2021 [facility] BRIMONIDINE 0.2%/BRINZO LAMIDE 1% SUSP,OPH INSTILL 1 DROP IN BOTH EYES TWICE A DAY ([place]) OPHTHA LMIC ACTIVE 08/30/2025 [id number] BARRETT PAZ 2024 24 [facility] INSULIN,ASP ART,HUMAN 100 UNT/ML INJ INJECT 18 UNITS UNDER THE SKIN THREE TIMES A DAY BEFORE MEALS SUBCUT ANEOUS ACTIVE ELIZABETH ESTEBAN Elias 2021 [facility] INSULIN,GLA RGINE,HUMAN 100 UNT/ML INJ INJECT 56 UNITS UNDER THE SKIN ONCE A DAY SUBCUT ANEOUS ACTIVE ELIZABETH ESTEBAN Elias 2021 [facility] N LACOSAMIDE 100MG TAB TAKE ONE TABLET BY MOUTH TWICE A DAY ORAL ACTIVE ELIZABETH ESTEBAN Elias 2022 [facility] [place] LEVETIRACET AM 500MG TAB TAKE TWO TABLETS BY MOUTH TWICE A DAY ORAL ACTIVE ELIZABETH ESTEBAN Elias 2022 [facility] N PREGABALIN 300MG CAP,ORAL TAKE 1 CAPSULE BY MOUTH TWICE A DAY ORAL ACTIVE ELIZABETH ESTEBAN Elias 2023 [facility] DAISYISIO N ZONISAMIDE 100MG CAP TAKE 1 CAPSULE BY MOUTH TWICE A DAY ORAL ACTIVE ELIZABETH ESTEBAN Elias 2023 [facility] N Allergies, Adverse Reactions, Alerts Combined list of allergies from Department of Defense and Veterans Affairs facilities. It does not include entries that were removed or entered in error. Substance Category Reaction Severity Reaction type Status Date Reported Comments Source CODEINE Propensity to adverse reactions to drug (finding) Hyperactive behavior active 8 [facility] JARDIANCE Propensity to adverse reactions to drug (finding) Seizure active 4 [facility] Immunizations Combined list of available immunizations from the Department of Defense and Veterans Affairs facilities. Immunization Series Date Given Administered By Site Reaction Lot Number CVX Code Drug Linemarker Status Comments Source COVID-19 ([employer]), MRNA, LNP-S, PF, DARRIUS-SUCROSE, 30 MCG/0.3 ML (AGES 12+ YEARS) 4 2023 309 complet ed HISTORICA L INFORMATI ON - FROM OTHER [facility] N INFLUENZA, ADJUVANTED, TRIVALENT, PF 3 2023 168 complet ed HISTORICA L INFORMATI ON - FROM OTHER [facility] RSV, BIVALENT, PROTEIN SUBUNIT RSVPREF, DILUENT RECONSTITUTED , 0.5 ML, PF 2023 JEAN GARCIA LEFT DELTO ID [id number] 305 complet ed [facility] N PNEUMOCOCCAL CONJUGATE PCV20, POLYSACCHARID E [id number] CONJUGATE, ADJUVANT, PF 1 2022 216 complet ed HISTORICA L INFORMATI ON - FROM OTHER [facility] N INFLUENZA, UNSPECIFIED FORMULATION 2022 88 complet ed HISTORICA L INFORMATI ON - SOURCE UNSPECIF ED, [facility] N COVID-19 ([facility]), MRNA, LNP-S, PF, DARRIUS-SUCROSE, 30 MCG/0.3 ML (AGES 12+ YEARS) 3 2022 309 complet ed HISTORICA L INFORMATI ON - FROM OTHER [facility] N INFLUENZA, ADJUVANTED, QUADRIVALENT, PF 2 2022 205 complet ed HISTORICA L INFORMATI ON - FROM OTHER [facility] COVID-19 ([facility]), MRNA, LNP-S, BIVALENT, PF, 30 MCG/0.3 ML DOSE 2 2021 300 complet ed HISTORICA L INFORMATI ON - FROM OTHER [facility], [facility] INFLUENZA, HIGH-DOSE, QUADRIVALENT, PF 1 2021 197 complet ed HISTORICA L INFORMATI ON - FROM [facility] N INFLUENZA, UNSPECIFIED FORMULATION 2021 88 complet ed HISTORICA L INFORMATI ON - [facility] COVID-19 ([employer]), MRNA, LNP-S, PF, 30 MCG/0.3 ML DOSE 3 2020 208 complet ed [facility] INFLUENZA, UNSPECIFIED FORMULATION 2020 88 complet ed [facility] COVID-19 ([facility]), MRNA, LNP-S, PF, 30 MCG/0.3 ML DOSE 2 2020 208 complet ed PFR; [id number]; 1 [facility] N ZOSTER RECOMBINANT 1 2020 187 complet ed HISTORICA L INFORMATI ON - FROM OTHER REGISTRY, [facility] N COVID-19 ([facility]), MRNA, LNP-S, PF, 30 MCG/0.3 ML DOSE 1 2020 208 complet ed PFR; [id number]; 1 [facility] N INFLUENZA, UNSPECIFIED FORMULATION 2019 88 complet ed [facility] N PNEUMOCOCCAL POLYSACCHARID E PPV23 2019 33 complet ed [facility] N INFLUENZA, UNSPECIFIED FORMULATION 2018 88 complet ed Fluzone [facility] TDAP 2018 115 complet ed Left Deltoid [facility] N INFLUENZA, UNSPECIFIED FORMULATION 2017 88 complet ed [facility] N PNEUMOCOCCAL CONJUGATE PCV 13 2016 133 complet ed per patient [facility] INFLUENZA, UNSPECIFIED FORMULATION 2016 88 complet ed [facility] Vital Signs Combined list of inpatient and outpatient Vital Signs from Department of Defense and Veterans Affairs, ranging from 12 months to all on record, depending upon the facility. Vital Sign Value Date Comments Source SYSTOLIC BLOOD PRESSURE 161 08/11/2024 13:11:03 [facility] DIASTOLIC BLOOD PRESSURE 75 08/11/2024 13:11:03 [facility] PULSE OXIMETRY 96 08/11/2024 13:11:03 [facility] WEIGHT 225.2 08/11/2024 13:11:03 [facility] BMI 32 kg/m2 08/11/2024 13:11:03 [facility] PAIN 0 08/11/2024 13:11:03 [facility] TEMPERATURE 97.8 08/11/2024 13:11:03 [facility] PULSE 86 08/11/2024 13:11:03 [facility] RESPIRATION 20 08/11/2024 13:11:03 [facility] Encounters Combined list of: 1) Encounters from Department of [facility] Affairs facilities going backup to the last 18 months, not all [place] inpatient encounters are included; 2) Encounters from the Department of [facility] facilities going backup to 280 months. Location Location Details Encounter Type Encounter Number Reason For Visit Attending Provider ADM Date DC Date Status Disposition Source [facility] OFFICE O/P EST MOD 30 MIN [id number] Diagnos is: ICD-10- CM E11.8 Type 2 diabete s mellitu s with 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 complic atnicole ESTEBAN ELIZABETH L 07/23 [facility] Outpatient Encounter [id number] 08/23 [facility] COMPRE OPH EXAM EST PT 1/> [id number] Diagnos is: ICD-10- CM E11.329 3 Type 2 diab with mild nonp rtnop without macular edema, REJI Trujillo 02/28 [facility] Outpatient Encounter [id number] 04/01 [facility] END OF LIFE COUNSELING [id number] Diagnos is: ICD-10- CM Z71.9 Full Charge Bookkeeper ing, unspeci fikaushal COLIN JERONIMO 07/18 [facility] N [facility] Outpatient Encounter [id number] CINDY GARCIA NDA 08/08 [facility] Outpatient Encounter [id number] 08/11 [facility]P EST MOD 30 MIN [id number] Diagnos is: ICD-10- CM I10 Essenti al (primar y) hyperte ELIZABETH Lai 08/11 [facility] En[facility] [id number] 08/22 [facility] OFFICE O/P EST LOW 20 MIN [id number] Diagnos is: ICD-10- CM E11.321 2 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 Social History Type Response Date Comment Source Tobacco smoking status [facility]-TOBACCO NEVER USED CIGARETTES 08/11/2024 [facility] History of tobacco use [place]-TOBACCO USE FORMER OTHER TYPE 08/11/2024 smoked a pipe- quit in 1980 [facility] History of tobacco use [place]-TOBACCO FORMER USER 07/23/2023 [facility] History of tobacco use [place]-TOBACCO FORMER USER 07/31/2022 [facility] History of tobacco use VA-TOBACCO FORMER USER 08/05/2021 [facility] History of tobacco use VA-TOBACCO FORMER USER 07/28/2020 [facility] History of tobacco use VA-TOBACCO QUIT 15 YRS OR MORE 07/29/2019 [facility] History of tobacco use VA-TOBACCO FORMER USER 08/01/2018 [facility] Plan of Care List of future care activities from [facility] facilities. Additional future care activities may be listed in the Assessment and Plan section. Date/Time Care Activity Care Activity Detail Facili ty 12/25/2024 AMBULATORY - SURGERY AMBULATORY - SURGERY [facility] Advance Directives List of completed, amended, or rescinded Advance Directives on record at [facility] facilities. An actual copy of the Directive is not included. Date Advance Directive Provider Source 08/22/[address] [facility]
--- OUTSIDE RECORDS SUMMARY | 2024-11-24 11:52 | XMS_ITS | Clinical Summary ---
Author Organization [facility] Building [address] Address [address] [place] [address] Care Team Providers Care Dismantler Name Role Phone Redd De Anda MD Primary Care Provider [phone] Allergies Active Allergy Reactions Criticality Noted Date Comments Codeine Other (See comments) Reaction: HYPERACTIVITY, , Empagliflozin Other (See comments) Low 05/14/2022 Other reaction(s): FOUNDRY METALLURGIST Dysfunction Euglycemic dka Euglycemic dka Euglycemic dka Other reaction(s): FOUNDRY METALLURGIST Dysfunction Euglycemic dka Medications insulin aspart (NovoLOG) [...] BEDTIME 180 capsule 1 03/31/20 24 Active lacosamide (VIMPAT) 100 mg tablet [...] 90 capsule 10/03/19 25 Active pregabalin (LYRICA) 150 mg capsule TAKE 1 CAPSULE IN THE MORNING AND 6 PM ALONG WITH A 300 MG CAPSULE AT BEDTIME. 180 capsule 1 10/29/19 25 Active pregabalin (LYRICA) 150 mg capsule TAKE 1 CAPSULE IN THE MORNING AND 6 PM ALONG WITH A 300 MG CAPSULE AT BEDTIME. 180 capsule 1 04/22/20 24 025 Discontinued Active Problems Problem Noted Date [...] 12/27/2022 Assessment & Plan (07/23/2024 10:57 AM SOLAR PROJECT ENGINEER): The patient's neuropathy symptoms remained stable. Continue [...] 08/29/2017 Assessment & Plan (07/23/2024 10:56 AM SOLAR PROJECT ENGINEER): Essential tremor symptoms remained stable. Continue zonisamide 200 mg at bedtime. Transient ischemic attack (TIA) 08/29/2017 Abdominal pain, LLQ (left lower quadrant) 2013 Splenomegaly 04/04/2014 DM (diabetes mellitus) type II controlled, neurological manifestation 10/22/2013 Need for prophylactic vaccin ation and inoculation against influenza 03/06/2013 Seizure 02/12/2013 Overview (08/30/2016): Seizure Assessment & Plan (07/23/2024 10:52 AM SOLAR PROJECT ENGINEER): The patient remains seizure-free on his current medications. Continue lacosamide 100 mg Continue Keppra a 1000 mg in the morning and 1500 mg in the p.m.. He is also on Lyrica and zonisamide which can also help treat seizures. Assessment & Plan (04/22/2024 8:17 AM SOLAR PROJECT ENGINEER): The patient has on multiple seizure medications [...] neoplasm of cerebral meninges 07/17/2000 Gout 07/12/2000 Surgical History Surgery Date Site/Laterality Comments KNEE [...] on file Legal Sex Male 3:24 PM SOLAR PROJECT ENGINEER Gender Identity Not on file Sexual Orientation Not on file Obstetrics History Last Filed Vital Signs Vital Sign Reading Time Taken Comments Blood Pressure 155/79 07/23/2024 10:19 AM SOLAR PROJECT ENGINEER Pulse 85 10/29/2023 2:38 PM CDT Temperature 36.4 C (97.5 F) 10/09/2023 9:45 AM CDT Respiratory Rate 20 10/29/2023 2:38 PM CDT Oxygen Saturation 97% 10/29/2023 2:38 PM CDT Inhaled Oxygen Concentration - - Weight 101.6 kg (224 lb) 07/23/2024 10:19 AM SOLAR PROJECT ENGINEER Height 175.3 cm (5' 9) 07/23/2024 10:19 AM SOLAR PROJECT ENGINEER Body Mass Index 33.08 07/23/2024 10:19 AM SOLAR PROJECT ENGINEER Plan of Treatment Health Maintenance Due Date [...] Completed 020, 02/25/2017, 10/18/2016, Additional history exists Abdominal Aortic Aneurysm (A AA) Screen Completed 10/28/2022, 01/20/2019, 09/02/2014, Additional history exists Insurance [employer]ICE MEDICARE PPO [employer] MEDICARE PPO [employer] MEDICARE PPO Care Teams Dismantler Relationship Specialty Start Date End Date Redd De Anda MD PCP - General Internal Medicine 06/16/22
--- OUTSIDE RECORDS SUMMARY | 2024-11-24 11:53 | XMS_ITS | Referral Summary ---
Author Organization [facility] Building [address] Address [address] [place] [address] Care Team Providers Care Dry Dip Worker Name Role Phone Redd De Anda MD Primary Care Provider [phone] Allergies Active Allergy Reactions Criticality Noted Date Comments Codeine Other (See comments) Reaction: HYPERACTIVITY, , Empagliflozin Other (See comments) Low 05/14/2022 Other reaction(s): TON CONTAINER SHIPPER Dysfunction Euglycemic dka Euglycemic dka Euglycemic dka Other reaction(s): TON CONTAINER SHIPPER Dysfunction Euglycemic dka Medications insulin aspart (NovoLOG) [...] 12/27/2022 Assessment & Plan (07/23/2024 10:57 AM GLUE MAKER BONE): The patient's neuropathy symptoms remained stable. Continue [...] 08/29/2017 Assessment & Plan (07/23/2024 10:56 AM GLUE MAKER BONE): Essential tremor symptoms remained stable. Continue zonisamide 200 mg at bedtime. Transient ischemic attack (TIA) 08/29/2017 Abdominal pain, LLQ (left lower quadrant) 2013 Splenomegaly 04/04/2014 DM (diabetes mellitus) type II controlled, neurological manifestation 10/22/2013 Need for prophylactic vaccin ation and inoculation against influenza 03/06/2013 Seizure 02/12/2013 Overview (08/30/2016): Seizure Assessment & Plan (07/23/2024 10:52 AM GLUE MAKER BONE): The patient remains seizure-free on his current medications. Continue lacosamide 100 mg Continue Keppra a 1000 mg in the morning and 1500 mg in the p.m.. He is also on Lyrica and zonisamide which can also help treat seizures. Assessment & Plan (04/22/2024 8:17 AM GLUE MAKER BONE): The patient has on multiple seizure medications [...] on file Legal Sex Male 3:24 PM GLUE MAKER BONE Gender Identity Not on file Sexual Orientation Not on file Last Filed Vital Signs Vital Sign Reading Time Taken Comments Blood Pressure 155/79 07/23/2024 10:19 AM GLUE MAKER BONE Pulse 85 10/29/2023 2:38 PM CDT Temperature 36.4 C (97.5 F) 10/09/2023 9:45 AM CDT Respiratory Rate 20 10/29/2023 2:38 PM CDT Oxygen Saturation 97% 10/29/2023 2:38 PM CDT Inhaled Oxygen Concentration - - Weight 101.6 kg (224 lb) 07/23/2024 10:19 AM GLUE MAKER BONE Height 175.3 cm (5' 9) 07/23/2024 10:19 AM GLUE MAKER BONE Body Mass Index 33.08 07/23/2024 10:19 AM GLUE MAKER BONE Plan of Treatment Not on file Insurance [employer]ICE MEDICARE PPO Care Teams Dry Dip Worker Relationship Specialty Start Date End Date Redd De Anda MD PCP - General Internal Medicine 06/16/22
--- OUTSIDE RECORDS SUMMARY | 2024-11-24 11:53 | XMS_ITS | Clinical Summary ---
Author Organization [facility] Consult Address [address] [place] [address] Care Team Providers Care Occupational Therapist Home Based Name Role Phone Eliceo Templeton RN Unavailable [phone] Casie Pruett RN Unavailable Unava ilable Redd De Anda MD Primary Care Provider [phone] Source Comments [facility],non-owned Affiliates and Associated Physician Practices is amultiple site organization consisting of ambulatory clinics and hospital sitesin [place], [place], [place] and [place]. This disclosure is being madepursuant to the Care Everywhere program and may not contain all information available regarding this patient. Last updated 18.[facility] Consult Allergies Active Allergy Reactions Criticality Noted Date Comments Codeine 02/21/2010 Gets really hyper Empagliflozin EXHAUST TENDER Dysfunction 05/14/2022 Euglycemic dka Medications * Be [...] capsules by mouth 3 times daily 11/10/19 Active levETIRAcetam (Keppra) 1000 MG tablet Take 1 (one) tablet by mouth once daily 11/10/19 Active levETIRAcetam (Keppra) 750 MG tablet Take [...] 4 hours as needed 12 tablet 11/10/19 23 Active oxyCODONE, immediate release, (Roxicodone) 5 MG [...] status type 05/11/2022 11/09/2022 Acute hyperkalemia 01/20/2019 Acute hyperglycemia 01/20/2019 11/05/19 23 Septic shock 01/20/2019 11/04/2022 Chest pain 01/20/2019 11/04/2022 Sepsis due to undetermined organism 01/20/2019 11/04/2022 Acute appendicitis 09/03/2014 3 Leukocytosis 04/04/2014 11/09/2022 Thrombocytopenia, secondary 04/04/2014 11/09/2022 TIA (transient ischemic attack) 10/22/2013 11/09/2022 Immunizations Immunization Administration Dates Next Due INFLUENZA VACCINE, TRIV. (AF LURIA, FLUZONE TRIVALENT; 6MO+) (IIV3) 03/31/2014 Covid Pfizer primary monoval ent 12+ yr 0.3mL Purple [...] and heating? Not hard at all 10/28/2022 [facility] Rule of Occupat ional Health - Occupational Stress [...] place to sleep or slept in a care home (including now)? 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 Not on file [...] 1:10 PM CDT Height 175.3 cm (5' 9) 01/16/2023 1:10 PM CDT Body Mass Index 28.06 01/16/2023 1:10 PM CDT Plan of Treatment Health Maintenance Due Date Last Done Comments COLOGUARD (AGES 45-75) - COLON CA SCREENING [address] COLONOGRAPHY - COLON CA SCREENING [...] 2025 03/02/2022, 02/25/2022, 03/28/2021, Additional history exists COLON MONITORING 06/18/2029 06/18/2019 COLONOSCOPY - COLON CA SCREENING 06/18/2029 06/18/2019 [...] this topic Medical Devices Implanted Type Area Water Quality Specialist Device Identifier Shelf Expiration Date Model / Serial / Lot Cmnt Bone Co Hv 40gm Implanted:Qty: 2 on 09/27/2016 by Enmanuel Cerrato MD at [facility] [employer] 05/27/2018 [id number] / / [id number] Cruciate Retaining Legion Nonporous Femoral Component Implanted:Qty: 1 on 09/27/2016 by Enmanuel Cerrato MD at [facility] Right: Knee [employer] 05/09/2025 [id number] / / [id number] Description:Note: explanted 1 x existing screw. Disposition: trash. Onelia 11 Right Non Porous Tibial Baseplate Implanted:Qty: 1 on 09/27/2016 by Enmanuel Cerrato MD at [facility] Right: Knee [employer] 03/11/2026 [id number] / / [id number] Resurfacing Round Patellar Component Implanted:Qty: 1 on 09/27/2016 by Enmanuel Cerrato MD at [facility] Right: Knee [employer] 01/21/2026 [id number] / / [id number] High Flexion Articular Insert Implanted:Qty: 1 on 09/27/2016 by Enmanuel Cerrato MD at [facility] Right: Knee [employer] 07/02/2025 [id number] / / [id number] George Shai Tib Uncem Fem Implanted:Qty: 1 on 09/27/2016 by Enmanuel Cerrato MD at [facility] [place] [facility] BILL ONLY SHAI TIB UNCEM FEM SNORTHO / / Procedures Procedure Name Priority Date/Time Associated Diagnosis Comments COMPREHENSIVE METABOLIC PANEL STAT 01/08/2023 12:02 PM CDT HEPATITIS C AB SCREEN RFLX NAAT QUANT AM Draw 11/04/2022 4:26 AM CDT HEMOGLOBIN A1C Routine 10/29/2022 5:42 AM CDT MICROALB/CREAT RATIO URINE RANDOM PANEL Routine 05/17/2022 9:16 PM MANAGER WHOLESALE from Last 3 Months or Most Recently Relevant to Health Maintenance Results * (ABNORMAL) COMPREHENSIVE METABOLIC PANEL (01/08/2023 12:02 PM CDT) BUN 15 7 - 26 mg/dL 01/08/2023 12:38 PM [facility] Creatinine 0.72 0.71 - 1.16 mg/dL 01/08/2023 12:38 PM [facility] Sodium 140 136 - 145 mmol/L 01/08/2023 12:38 PM [facility] Potassium 4.1 3.5 - 4.5 mmol/L 01/08/2023 12:38 PM [facility] Chloride 110(H) 98 - 107 mmol/L 01/08/2023 12:38 PM [facility] CO2 21(L) 22 - 29 mmol/L 01/08/2023 12:38 PM [facility] Glucose 171(H) 70 - 115 mg/dL 01/08/2023 12:38 PM [facility] Calcium 9.3 8.4 - 10.2 mg/dL 01/08/2023 12:38 PM [facility] Protein Total 7.3 6.0 - 8.3 g/dL 01/08/2023 12:38 PM [facility] Albumin 4.0 3.4 - 5.0 g/dL 01/08/2023 12:38 PM [facility] Bilirubin Total 0.3 0.2 - 1.2 mg/dL 01/08/2023 12:38 PM [facility] Alkaline Phosphatase 85 40 - 150 U/L 01/08/2023 12:38 PM [facility] ALT 15 5 - 55 U/L 01/08/2023 12:38 PM [facility] AST 21 5 - 34 U/L 01/08/2023 12:38 PM [facility] Anion Gap 13 8 - 18 01/08/2023 12:38 PM [facility] BUN/Creatinine Ratio 21 7 - 23 01/08/2023 12:38 PM [facility] Osmolality Calculated 295 270 - 300 mOsm/kg 01/08/2023 12:38 PM [facility] Albumin/Globulin Ratio 1.2 1.1 - 2.3 01/08/2023 12:38 PM [facility] eGFR by CKD-EPI >90 >=90 mL/min/1.7 3 m2 01/08/2023 12:38 PM [facility] Blood BLOOD SPECIMEN / Unknown Venipuncture / Unknown 01/08/2023 12:02 PM CDT 01/08/2023 12:13 PM [facility] us Joao PALOMINO-Venkatesh LAB - CHEMISTRY OR DERABLES Final Result [facility] [address] [place] [phone], [facility] [phone] * HEPATITIS C AB SCREEN RFLX NAAT QUANT (11/04/2022 4:26 AM [facility]) Hepatitis C Antibody Non-react kinjal Non-reac tive 11/04/2022 6:27 AM [facility] Comment:Hepatitis C Antibody screen indicates no [...] 11/04/2022 5:44 AM CDT us Daryl Nicolas APRN-[employer]OS[employer] ACCESS DEVELOPER LAB - CHEMISTRY ORDERABL ES Final Result Performing Organization Address [facility]/ZIP Co de Phone Number [facility] [address] [place] [phone], [facility] [phone] * (ABNORMAL) HEMOGLOBIN A1C (10/29/2022 5:42 AM CDT) Hemoglobin A1c 6.9(H) <=5.6 % 10/30/2022 1:24 PM CDT [facility] Estimated Average Glucose 151 mg/dL 10/30/2022 1:24 PM CDT [facility] Comment: HbA1c Interpretation: Normal : < 5.7% Pre-diabetes: 5.7-6.4% Diabetes: Equal to or greater than 6.5% Test results diagnostic of diabetes should be repeated for confirmation. Treatment target values recommended by ADA and other clinical organizations should be used to evaluate metabolic control in patients. Reference: [place] [employer], Standards of Care in Diabetes [...] CHEMISTRY ORDERABLES Final Result Performing Organization Address City/[facility]/ZIP Co de Phone Number [facility] [address] [place] [address], [place] [phone] * (ABNORMAL) MICROALB/CREAT RATIO URINE RANDOM PANEL (05/17/2022 9:16 PM MANAGER WHOLESALE) Creatinine Urine 83.67 mg/dL 05/17/20 9:55 PM MANAGER WHOLESALE [facility] Microalbumin Urine 13.8 mg/dL 05/17/2022 9:55 PM MANAGER WHOLESALE [facility] Microalbumin/Crea tinine Ratio 164(H) <30 mg/g 05/17/2022 9:55 PM MANAGER WHOLESALE [facility] Urine URINE SPECIMEN OBTAINED BY CLEAN CATCH PROCEDURE / Unknown Collection / Unknown 05/17/2022 9:16 PM MANAGER WHOLESALE 05/17/2022 9:35 PM MANAGER WHOLESALE us Trinidad Mckenzie MD LAB - URINE CHEMISTRY ORDERABLES Final Result [facility] [address] [place], [place] [id number] from Last 3 Months or Most Recently [...] 4:13 PM 09/03/2014 6:45 PM Care Teams Occupational Therapist Home Based Relationship Specialty Start Date End Date Redd De Anda MD [address] [place], [place] [id number] PCP - General Internal Medicine 05/11/22 Eliceo Templeton RN Apartment Leasing Consultant 10/22/13 GideonCasie Celeste RN Registered Nurse 09/28/16
--- OUTSIDE RECORDS SUMMARY | 2024-11-24 11:53 | XMS_ITS | Encounter Summary ---
Author Organization [facility] Address [address] [facility] [place] [address] Care Team Providers Care Credit And Collections Analyst Name Role Phone Eliceo Templeton RN Unavailable [phone] Casie Pruett RN Unavailable Unava ilable Redd De Anda MD Primary Care Provider [phone] Reason for Visit * Reason Comments Refill Request Encounter Details Date Type Department Care Team (Late st Contact Info) Description 09/21/2022 Refill [facility] - Orthopedics [address] 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
--- OUTSIDE RECORDS SUMMARY | 2024-11-24 11:53 | XMS_ITS | Patient Health Record ---
Author Organization [employer] Address [address] [facility]. [address] [place] [phone] Care Team Providers Care Timber Packer Name Role Phone Eric Allen DO Primary Care Provider Unavailab le Reason For Referral No Information Plan Of Treatment No Information Insurance Providers Payer Name Payer Address Payer Phone Subscriber Number Group Number Insured Name Patient Relationship to Insured Coverage Start Date Coverage End Date Cmr- [employer] [address] [phone] [id number] Dane Parker Self - patient is the insured
[2024-11-24 13:44] VITALS: BP 130/68; PULSE 91; TEMP 36.3; O2SAT 97
[2024-11-24 14:30] VITALS: BP 162/80; PULSE 84; RESP 20; O2SAT 98
--- NOTE | 2024-11-24 15:07 | ED.ABDPAIN ---
HPI - Abdominal Pain General Chief Complaint: Abdominal Pain Stated Complaint: Abd pain, N/V/D since yesterday Time Seen by Provider: 11/24/24 14:32 History of Present Illness HPI narrative: 74-year-old male with history of hypertension, hyperlipidemia, diabetes. He presents to the emergency department with diarrhea and abdominal pain. States that since last night he has been having profoundly watery diarrhea multiple times throughout the evening associated with cramping abdominal pain. Endorses symptoms starting after dinner last night when he went to a fish restaurant. Denies any fever, chills, nausea, vomiting. No chest pain shortness a breath. Similar episode happened to him 10 years ago and he ended up having a colonoscopy at that time. Does not endorse any blood or foul odor to his stool. No fever chills. Related Data Home Medications ?Medication ?Instructions ?Recorded ?Confirmed ?Last Taken ?Type atorvastatin 40 mg tablet 40 mg PO DAILY 08/03/22 11/24/24 11/22/24 History insulin aspart U-100 100 unit/mL 11 unit subcut TIDWMEAL 08/03/22 11/24/24 Unknown History (3 mL) subcutaneous pen (Novolog FlexPen U-100 Insulin aspart) insulin glargine 100 unit/mL (3 40 unit subcut DAILY 08/03/22 11/24/24 Unknown History mL) subcutaneous pen (Lantus Solostar U-100 Insulin) multivitamin with minerals-folic 1 tablet PO DAILY 08/03/22 11/24/24 Unknown History acid 0.4 mg tablet pantoprazole 40 mg tablet,delayed 40 mg PO DAILY 08/03/22 11/24/24 Unknown History release zonisamide 100 mg capsule 200 mg PO HS 09/21/22 11/24/24 Unknown History lacosamide 100 mg tablet 100 mg PO DAILY 01/17/23 11/24/24 Unknown History pregabalin 150 mg capsule 150 mg PO QAM 09/12/23 11/24/24 11/23/24 History levetiracetam 500 mg tablet 1,000 mg PO HS 11/24/24 11/24/24 11/23/24 History (Renee) Allergies Allergy/AdvReac Type Severity Reaction Status Date / Time codeine AdvReac Unknown Hyperactive Verified 11/24/24 14:34 empagliflozin (From AdvReac Unknown Other Verified 11/24/24 14:34 Jardiance) Review of Systems Review of Systems: As reviewed above in [facility] Past Medical History Medical History Neuropathy Hyperlipidemia DM2 (diabetes mellitus, type 2) Occult blood in stools Colon polyp Brain tumor History of seizure disorder Anemia Diabetes Hypertension Surgical History Surgical History H/O colonoscopy with polypectomy L4 through S1 on November 02, 2022 History of back surgery History of brain surgery Hx of total knee arthroplasty Bilaterally Family History Family History Unknown No problems noted. Social History Social History Social History: The patient lives home alone and has 2 children. 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 Code status full code. Smoking status: Never smoker Alcohol intake: never Substance use: never Other substance usage details: CBD Gummies Do You Feel Safe in your Home?: Yes Lack of Transportation: No Lack of Food: Never True Current Housing: I Have Housing Concerned About Future Housing: No Difficulty Paying Gas/Electric Bills: No Difficulty Paying for Meds: No Currently Unemployed: No Education: High School Diploma/GED Difficulty w/ Childcare or Family Care: No Living arrangements: with family Spiritual care concerns: No Exam Narrative: GENERAL: [Well-appearing, well-nourished, and in no acute distress.] HEAD: [Normocephalic, atraumatic.] EYES: [PERRLA and EOMI.] ENT: Nares clear, no rhinorrhea or epistaxis. Mucous membranes moist. NECK: Supple. CHEST: [Clear to auscultation. No respiratory distress.] HEART: [Regular rate and rhythm]. No murmur heard. [Normal peripheral pulses.] ABDOMEN: Mildly distended abdomen but soft to palpation, tender to palpation diffusely without any rigidity or guarding, no peritonitis EXTREMITIES: Normal range of motion. [No edema.] SKIN: Warm, dry, no rash. NEURO: [No focal deficits]. Alert and oriented [x3.] PSYCH: [Normal mood and affect.] Course Vital Signs Vital signs: Vital Signs Temperature 36.6 C 11/24/24 11:38 Pulse Rate 89 11/24/24 11:38 Respiratory Rate 20 11/24/24 11:38 Blood Pressure 121/82 11/24/24 11:38 Pulse Oximetry 98 11/24/24 11:38 Oxygen Delivery Room Air 11/24/24 11:38 Temperature 36.5 C 11/24/24 21:42 Pulse Rate 76 11/24/24 21:42 Respiratory Rate 20 11/24/24 21:42 Blood Pressure 150/60 H 11/24/24 21:42 Pulse Oximetry 98 11/24/24 21:42 Oxygen Delivery Room Air 11/24/24 20:00 MDM - Abdominal Pain MDM Narrative Medical decision making narrative: 74-year-old male with history of hypertension, hyperlipidemia, diabetes. He presents to the emergency department with diarrhea and abdominal pain. States that since last night he has been having profoundly watery diarrhea multiple times throughout the evening associated with cramping abdominal pain. Endorses symptoms starting after dinner last night when he went to a fish restaurant. Denies any fever, chills, nausea, vomiting. No chest pain shortness a breath. Similar episode happened to him 10 years ago and he ended up having a colonoscopy at that time. Does not endorse any blood or foul odor to his stool. No fever chills. Patient has a mildly tender abdomen diffusely consistent with patient's symptomatology and complaints. Vital signs reassuring without any tachycardia, fever, hypoxia blood pressure anomalies. Differential includes gastroenteritis likely viral versus bacterial given symptoms onset after restaurant food yesterday. He does tell me that he has kept a food diary recently notice triggers that cause his diarrhea. Low suspicion inflammatory or ischemic pathology towards his diarrheal symptoms low suspicion bowel obstruction although patient is concerned that that is what happened to him years ago. CT scan with contrast was ordered the abdomen pelvis and laboratory assessment including CBC, CMP, magnesium and urinalysis ordered. Was given morphine and fluids as well as Zofran. Workup shows no leukocytosis or anemia. Platelet count slightly low but chronically low. Chemistry panel shows normal creatinine, mildly elevated BUN likely from dehydration and intravascular volume depletion. Normal potassium. Glucose mildly elevated 249. Normal LFTs. Normal lipase. Urinalysis with no signs of infection. CT scan shows concerning findings for partial versus complete small-bowel obstruction with a transition point at the terminal ileum. This could explain patient's symptomatology and he does have a history of bowel obstruction with similar presentations in the past. He has not nauseous or vomited since his arrival here so I do not feel like he needs an NG tube at this juncture but I did consult General surgery with recommendations going forward. Surgery under Dr. Garcia will be on consult and patient will be admitted to the hospitalist service and I discussed the case with history the mid-level provider who accepted the patient to a [facility] bed. Patient was made NPO, scheduled pain medications and fluids provided and consult orders placed. Medical Records Attestation: I reviewed the patient's medical records. Lab Data Attestation: I reviewed the patient's lab results. 11/24/24 15:07 11/24/24 15:07 Labs: Lab Results 11/24/24 11/24/24 11/24/24 Range/Units 15:07 15:07 16:09 WBC 7.6 (4.5-10.0) K/mm3 RBC 5.95 (4.6-6.20) M/mm3 Hgb 16.8 (14.0-18.0) g/dL Hct 52.2 H (42.0-52.0) % MCV 87.7 (80-100) fl MCH 28.2 (26-34) pg MCHC 32.2 (32-36) g/dl RDW 14.6 H (11.5-14.5) % Plt Count 107 L (150-375) k/mm3 MPV 12.1 H (7.4-10.4) fl Immature Gran % (Auto) 0.1 (0-0.5) % Neut % (Auto) 68.9 (45.5-73.1) % Lymph % (Auto) 15.7 L (18.3-44.2) % [place] % (Auto) 14.1 H (2.6-8.5) % Eos % (Auto) 0.7 (0-4.4) % Baso % (Auto) 0.5 (0.2-1.2) % Lymph # (Auto) 1.19 (0.9-3.2) K/mm3 [place] # (Auto) 1.1 H (0.1-0.6) K/mm3 Eos # (Auto) 0.1 (0-0.3) K/mm3 Baso # (Auto) 0.0 (0.0-0.1) K/mm3 Abs Immat Gran (auto) 0.01 (0.00-0.031) K/mm3 Absolute Neuts (auto) 5.2 (1.3-6.7) K/mm3 Absolute Nucleated RBC 0.000 (0.0-0.012) K/mm3 Nucleated RBC % 0.0 (0.0-0.2) % Sodium 143 (137-145) mmol/L Potassium 4.3 (3.4-5.0) mmol/L Chloride 110 H (98-107) mmol/L Carbon Dioxide 21 L (22-30) mmol/L Anion Gap 12 (4-12) mmol/L BUN 33 H D (9-20) mg/dL Creatinine 1.12 (0.7-1.3) mg/dL Estim Creat Clear Calc 60 ml/min Estimated GFR > 60 (59 - ) Glucose 249 H (65-110) mg/dL Calcium 8.8 (8.4-10.2) mg/dL Magnesium 1.9 Cancelled (1.6-2.3) mg/dL Total Bilirubin 0.6 (0.2-1.3) mg/dL AST 32 (17-59) U/L ALT 25 (6-50) U/L Alkaline Phosphatase 76 (38-126) U/L Total Protein 7.2 (6.3-8.2) g/dL Albumin 4.1 (3.5-5.1) g/dL Lipase 34 (23-300) U/L Urine Color Dark yellow (Yellow) Urine Appearance Clear (Clear) Urine pH 5.5 (5.0-9.0) Ur Specific [place] > 1.045 H (1.001-1.035) Urine Protein 2+ H (Negative) mg/dL Urine Glucose (UA) Negative (Negative) mg/dL Urine Ketones Trace H (Negative) mg/dL Ur Blood (Man) Negative (Negative) Urine Nitrate Negative (Negative) Urine Bilirubin Negative (Negative) Urine Urobilinogen 1.0 (<2.0) mg/dL Leukocyte Esterase Rfl Negative (Negative) PILI/UL Urine RBC 3-5 H (0-2) /hpf Urine WBC 0-5 (0-3) /hpf Ur Squamous Epith Cells None seen (Few) /hpf Urine Bacteria None seen /hpf Urine Casts 3-5 Imaging Data Attestation: I personally reviewed and interpreted this imaging study as follows: My impression: Impressions Abdomen/Pelvis CT 11/24/24 16:06 IMPRESSION: Mild splenomegaly. CT findings concerning for partial or early complete small bowel obstruction, candidate transition point at the terminal ileum. Mild mesenteric lymphadenopathy. Mild bladder wall thickening probably secondary to incomplete distention and/or chronic outlet obstruction from prostatomegaly. Small volume ascites. Radiologist's impression: ITS Impressions Abdomen/Pelvis CT 11/24/24 16:06 IMPRESSION: Mild splenomegaly. CT findings concerning for partial or early complete small bowel obstruction, candidate transition point at the terminal ileum. Mild mesenteric lymphadenopathy. Mild bladder wall thickening probably secondary to incomplete distention and/or chronic outlet obstruction from prostatomegaly. Small volume ascites. Critical Care Time Critical Care Time Critical Care Time: Yes Total Critical Care Time: 35 Discharge Plan Discharge Clinical Impression: SBO (small bowel obstruction), Abdominal pain, Diarrhea, Acute dehydration Patient Disposition: Still a Patient Condition: Stable
--- OUTSIDE RECORDS SUMMARY | 2024-11-24 15:08 | XMS_ITS | Clinical Summary ---
Author Organization [facility] Building B Address [address] [place] [place] [address] Care Team Providers Care Prepper Name Role Phone Redd De Anda MD Primary Care Provider [phone] Allergies Active Allergy Reactions Criticality Noted Date Comments Codeine Other (See comments) Reaction: HYPERACTIVITY, , Empagliflozin Other (See comments) Low 05/14/2022 Other reaction(s): MORTGAGE LOAN CLOSER Dysfunction Euglycemic dka Euglycemic dka Euglycemic dka Other reaction(s): MORTGAGE LOAN CLOSER Dysfunction Euglycemic dka Medications insulin aspart (NovoLOG) [...] 12/27/2022 Assessment & Plan (07/23/2024 10:57 AM DISABILITY COORDINATOR): The patient's neuropathy symptoms remained stable. Continue [...] 08/29/2017 Assessment & Plan (07/23/2024 10:56 AM DISABILITY COORDINATOR): Essential tremor symptoms remained stable. Continue zonisamide 200 mg at bedtime. Transient ischemic attack (TIA) 08/29/2017 Abdominal pain, LLQ (left lower quadrant) 2013 Splenomegaly 04/04/2014 DM (diabetes mellitus) type II controlled, neurological manifestation 10/22/2013 Need for prophylactic vaccin ation and inoculation against influenza 03/06/2013 Seizure 02/12/2013 Overview (08/30/2016): Seizure Assessment & Plan (07/23/2024 10:52 AM DISABILITY COORDINATOR): The patient remains seizure-free on his current medications. Continue lacosamide 100 mg Continue Keppra a 1000 mg in the morning and 1500 mg in the p.m.. He is also on Lyrica and zonisamide which can also help treat seizures. Assessment & Plan (04/22/2024 8:17 AM DISABILITY COORDINATOR): The patient has on multiple seizure medications [...] on file Legal Sex Male 3:24 PM DISABILITY COORDINATOR Gender Identity Not on file Sexual Orientation Not on file Obstetrics History Last Filed Vital Signs Vital Sign Reading Time Taken Comments Blood Pressure 155/79 07/23/2024 10:19 AM DISABILITY COORDINATOR Pulse 85 10/29/2023 2:38 PM CDT Temperature 36.4 C (97.5 F) 10/09/2023 9:45 AM CDT Respiratory Rate 20 10/29/2023 2:38 PM CDT Oxygen Saturation 97% 10/29/2023 2:38 PM CDT Inhaled Oxygen Concentration - - Weight 101.6 kg (224 lb) 07/23/2024 10:19 AM DISABILITY COORDINATOR Height 175.3 cm (5' 9) 07/23/2024 10:19 AM DISABILITY COORDINATOR Body Mass Index 33.08 07/23/2024 10:19 AM DISABILITY COORDINATOR Plan of Treatment Health Maintenance Due Date [...] PPO HUMANA CHOICE MEDICARE PPO Care Teams Prepper Relationship Specialty Start Date End Date Redd De Anda MD PCP - General Internal Medicine 06/16/22
--- OUTSIDE RECORDS SUMMARY | 2024-11-24 15:08 | XMS_ITS | Continuity of Care Document ---
Author Name [facility] Organization [facility] Care Team Providers Care Library Media Specialist Name Role Phone [facility] Unavailable Unavailable Problems Combined list of problems from [facility] and [facility] facilities. It does not include entries that were removed or entered in error. 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, l eye Active Diagnosis [facility] Diagnosis: ICD-10-CM I10 Essential (primary) hypertension Active Diagnosis [facility] Diagnosis: ICD-10-CM Z71.9 Counseling, unspecified Active Diagnosis [facility] Diagnosis: ICD-10-CM E11.3293 Type 2 diab with mild nonp rtnop without macular edema, bi Active Diagnosis [facility] Diagnosis: ICD-10-CM E11.8 Type 2 diabetes mellitus with unspecified complications Active Diagnosis [facility] Medications Combined list of outpatient medications from [facility] and [facility] facilities.Medications provided include 1) outpatient medications from the last 15 months, and 2) patient-reported medications. Medication Details Route Status Patient Instructions Prescription Expires Prescription Number Last Dispense Date Ordering Provider Order Date Order Qty Source ATORVASTATI N CA 80MG TAB TAKE ONE-HALF TABLET BY MOUTH EVERY EVENING ORAL ACTIVE ELIZABETH ESTEBAN 2021 [facility] BRIMONIDINE 0.2%/BRINZO LAMIDE 1% SUSP,OPH INSTILL 1 DROP IN BOTH EYES TWICE A DAY ([place]) OPHTHA LMIC ACTIVE 08/30/2025 [id number] 5 BARRETT PAZ 2024 24 [facility] INSULIN,ASP ART,HUMAN 100 UNT/ML INJ INJECT 18 UNITS UNDER THE SKIN THREE TIMES A DAY BEFORE MEALS SUBCUT ANEOUS ACTIVE ELIZABETH ESTEBAN Elias 2021 [facility] INSULIN,GLA RGINE,HUMAN 100 UNT/ML INJ INJECT 56 UNITS UNDER THE SKIN ONCE A DAY SUBCUT ANEOUS ACTIVE ELIZABETH ESTEBAN Elias 2021 [facility] LACOSAMIDE 100MG TAB TAKE ONE TABLET BY MOUTH TWICE A DAY ORAL ACTIVE ELIZABETH ESTEBAN Elias 2022 [facility] [place] LEVETIRACET AM 500MG TAB TAKE TWO TABLETS BY MOUTH TWICE A DAY ORAL ACTIVE ELIZABETH ESTEBAN Elias 2022 [facility] PREGABALIN 300MG CAP,ORAL TAKE 1 CAPSULE BY MOUTH TWICE A DAY ORAL ACTIVE ELIZABETH ESTEBAN Elias 2023 [facility] ZONISAMIDE 100MG CAP TAKE 1 CAPSULE BY MOUTH TWICE A DAY ORAL ACTIVE ELIZABETH ESTEBAN Elias 2023 [facility] Allergies, Adverse Reactions, Alerts Combined list of allergies from [facility] of Defense and [facility] Affairs facilities. It does not include entries that were removed or entered in error. Substance Category Reaction Severity Reaction type Status Date Reported Comments Source CODEINE Propensity to adverse reactions to drug (finding) Hyperactive behavior active 8 [facility] JARDIANCE Propensity to adverse reactions to drug (finding) Seizure active 4 [facility] Immunizations Combined list of available immunizations from the Department of Defense and Veterans Affairs facilities. Immunization Series Date Given Administered By Site Reaction Lot Number CVX Code Drug Merchandise Executive Status Comments Source COVID-19 ([facility]), MRNA, LNP-S, PF, DARRIUS-SUCROSE, 30 MCG/0.3 ML (AGES 12+ YEARS) 4 2023 309 complet ed HISTORICA L INFORMATI ON - FROM OTHER [facility] N INFLUENZA, ADJUVANTED, TRIVALENT, PF 3 2023 168 complet ed HISTORICA L INFORMATI ON - FROM OTHER [facility] RSV, BIVALENT, PROTEIN SUBUNIT RSVPREF, DILUENT RECONSTITUTED , 0.5 ML, PF 2023 JEAN GARCIA LEFT DELTO ID [id number] 305 complet ed [facility]MINISTE [facility] AT [facility] N PNEUMOCOCCAL CONJUGATE PCV20, POLYSACCHARID E [id number] CONJUGATE, ADJUVANT, PF 1 2022 216 complet ed HISTORICA L INFORMATI ON - FROM OTHER [facility] N INFLUENZA, UNSPECIFIED FORMULATION 2022 88 complet ed HISTORICA L INFORMATI ON - SOURCE UNSPECIF ED, [facility] N COVID-19 ([facility]), MRNA, LNP-S, PF, DARRIUS-SUCROSE, 30 MCG/0.3 ML (AGES 12+ YEARS) 3 2022 309 complet ed HISTORICA L INFORMATI ON - FROM OTHER [facility] INFLUENZA, ADJUVANTED, QUADRIVALENT, PF 2 2022 205 complet ed HISTORICA L INFORMATI ON - FROM OTHER [facility] COVID-19 ([facility]), MRNA, LNP-S, BIVALENT, PF, 30 MCG/0.3 ML DOSE 2 2021 300 complet ed HISTORICA L INFORMATI ON - FROM OTHER [facility], [facility] N INFLUENZA, HIGH-DOSE, QUADRIVALENT, PF 1 2021 197 complet ed HISTORICA L INFORMATI ON - FROM [facility] N INFLUENZA, UNSPECIFIED FORMULATION 2021 88 complet ed HISTORICA L INFORMATI ON - [facility] COVID-19 ([facility]), MRNA, LNP-S, PF, 30 MCG/0.3 ML DOSE 3 2020 208 complet ed [facility] INFLUENZA, UNSPECIFIED FORMULATION [address] [facility] COVID-19 ([facility]), MRNA, LNP-S, PF, 30 MCG/0.3 ML DOSE 2 2020 208 complet ed PFR; [id number]; 1 [facility] ZOSTER RECOMBINANT 1 2020 187 complet ed HISTORICA L INFORMATI ON - FROM OTHER REGISTRY, [facility] COVID-19 ([facility]), MRNA, LNP-S, PF, 30 MCG/0.3 ML DOSE 1 2020 208 complet ed PFR; [id number]; 1 [facility] INFLUENZA, UNSPECIFIED FORMULATION [address] [facility] N PNEUMOCOCCAL POLYSACCHARID E PPV23 2019 33 complet ed [facility] INFLUENZA, UNSPECIFIED FORMULATION [address] [facility] TDAP 2018 115 complet ed Left Deltoid [facility] INFLUENZA, UNSPECIFIED FORMULATION [address] [facility] PNEUMOCOCCAL CONJUGATE PCV 13 2016 [address] patient [facility] INFLUENZA, UNSPECIFIED FORMULATION [address] [facility] Vital Signs Combined list of inpatient and outpatient Vital Signs from Department of Defense and Veterans Affairs, ranging from 12 months to all on record, depending upon the facility. Vital Sign Value Date Comments Source SYSTOLIC BLOOD PRESSURE 161 08/11/2024 13:11:03 [facility] DIASTOLIC BLOOD PRESSURE 75 08/11/2024 13:11:03 [facility] PULSE OXIMETRY 96 08/11/2024 13:11:03 [facility] WEIGHT 225.2 08/11/2024 13:11:03 [facility] BMI 32 kg/m2 08/11/2024 13:11:03 [facility] PAIN 0 08/11/2024 13:11:03 [facility] TEMPERATURE 97.8 08/11/2024 13:11:03 [facility] PULSE 86 08/11/2024 13:11:03 [facility] RESPIRATION 20 08/11/2024 13:11:03 [facility] Encounters Combined list of: 1) Encounters from Department of [facility] Affairs facilities going backup to the last 18 months, not all [place] inpatient encounters are included; 2) Encounters from the Department of [facility] facilities going backup to 280 months. Location Location Details Encounter Type Encounter Number Reason For Visit Attending Provider ADM Date DC Date Status Disposition Source [facility] OFFICE O/P EST MOD 30 MIN [id number] Diagnos is: ICD-10- CM E11.8 Type 2 diabete s mellitu s with 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 complic atnicole ESTEBAN ELIZABETH L 07/23 [facility] Outpatient Encounter [id number] 08/23 [facility] COMPRE OPH EXAM EST PT 1/> [id number] Diagnos is: ICD-10- CM E11.329 3 Type 2 diab with mild nonp rtnop without macular edema, REJI Trujillo 02/28 [facility] Outpatient Encounter [id number] 04/01 [facility] END OF LIFE COUNSELING [id number] Diagnos is: ICD-10- CM Z71.9 General Foundry Worker ing, unspeci fikaushal COLIN JERONIMO 07/18 [facility] Outpatient Encounter [id number] CINDY GARCIA NDA 08/08 [facility] Outpatient Encounter [id number] 08/11 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 Social History Type Response Date Comment Source Tobacco smoking status [facility]-TOBACCO NEVER USED CIGARETTES 08/11/2024 [facility] History of tobacco use [place]-TOBACCO USE FORMER OTHER TYPE 08/11/2024 smoked a pipe- quit in 1980 [facility] History of tobacco use [place]-TOBACCO FORMER USER 07/23/2023 [facility] History of tobacco use [place]-TOBACCO FORMER USER 07/31/2022 [facility] History of tobacco use [place]-TOBACCO FORMER USER 08/05/2021 [facility] History of tobacco use VA-TOBACCO FORMER USER 07/28/2020 [facility] History of tobacco use VA-TOBACCO QUIT 15 YRS OR MORE 07/29/2019 [facility] History of tobacco use VA-TOBACCO FORMER USER 08/01/2018 [facility] Plan of Care List of future care activities from [facility] facilities. Additional future care activities may be listed in the Assessment and Plan section. Date/Time Care Activity Care Activity Detail Facili ty 12/25/2024 AMBULATORY - SURGERY AMBULATORY - SURGERY [facility] Advance Directives List of completed, amended, or rescinded Advance Directives on record at [facility] facilities. An actual copy of the Directive is not included. Date Advance Directive Provider Source 08/22/2024 ADVANCE DIRECTIVE REAGAN LY [facility]
--- OUTSIDE RECORDS SUMMARY | 2024-11-24 15:08 | XMS_ITS | Referral Summary ---
Author Organization [facility] Building B Address [address] [place] [address] Care Team Providers Care Varnish Filterer Name Role Phone Redd De Anda MD Primary Care Provider [phone] Allergies Active Allergy Reactions Criticality Noted Date Comments Codeine Other (See comments) Reaction: HYPERACTIVITY, , Empagliflozin Other (See comments) Low 05/14/2022 Other reaction(s): LEAD PROJECT MANAGER Dysfunction Euglycemic dka Euglycemic dka Euglycemic dka Other reaction(s): LEAD PROJECT MANAGER Dysfunction Euglycemic dka Medications insulin aspart (NovoLOG) [...] 12/27/2022 Assessment & Plan (07/23/2024 10:57 AM CRYSTAL REPORT DEVELOPER): The patient's neuropathy symptoms remained stable. Continue [...] 08/29/2017 Assessment & Plan (07/23/2024 10:56 AM CRYSTAL REPORT DEVELOPER): Essential tremor symptoms remained stable. Continue zonisamide 200 mg at bedtime. Transient ischemic attack (TIA) 08/29/2017 Abdominal pain, LLQ (left lower quadrant) 2013 Splenomegaly 04/04/2014 DM (diabetes mellitus) type II controlled, neurological manifestation 10/22/2013 Need for prophylactic vaccin ation and inoculation against influenza 03/06/2013 Seizure 02/12/2013 Overview (08/30/2016): Seizure Assessment & Plan (07/23/2024 10:52 AM CRYSTAL REPORT DEVELOPER): The patient remains seizure-free on his current medications. Continue lacosamide 100 mg Continue Keppra a 1000 mg in the morning and 1500 mg in the p.m.. He is also on Lyrica and zonisamide which can also help treat seizures. Assessment & Plan (04/22/2024 8:17 AM CRYSTAL REPORT DEVELOPER): The patient has on multiple seizure medications [...] on file Legal Sex Male 3:24 PM CRYSTAL REPORT DEVELOPER Gender Identity Not on file Sexual Orientation Not on file Last Filed Vital Signs Vital Sign Reading Time Taken Comments Blood Pressure 155/79 07/23/2024 10:19 AM CRYSTAL REPORT DEVELOPER Pulse 85 10/29/2023 2:38 PM CDT Temperature 36.4 C (97.5 F) 10/09/2023 9:45 AM CDT Respiratory Rate 20 10/29/2023 2:38 PM CDT Oxygen Saturation 97% 10/29/2023 2:38 PM CDT Inhaled Oxygen Concentration - - Weight 101.6 kg (224 lb) 07/23/2024 10:19 AM CRYSTAL REPORT DEVELOPER Height 175.3 cm (5' 9) 07/23/2024 10:19 AM CRYSTAL REPORT DEVELOPER Body Mass Index 33.08 07/23/2024 10:19 AM CRYSTAL REPORT DEVELOPER Plan of Treatment Not on file Insurance [employer] CHOICE MEDICARE PPO Care Teams Varnish Filterer Relationship Specialty Start Date End Date Redd De Anda MD PCP - General Internal Medicine 06/16/22
--- OUTSIDE RECORDS SUMMARY | 2024-11-24 15:09 | XMS_ITS | Encounter Summary ---
Author Organization [facility] Address [address] [place] [address] Care Team Providers Care Plum Packer Name Role Phone Eliceo Templeton RN Unavailable [phone] Casie Pruett RN Unavailable Unava ilable Redd De Anda MD Primary Care Provider [phone] Reason for Visit * Reason Comments Refill Request Encounter Details Date Type Department Care Team (Late st Contact Info) Description 09/21/2022 Refill [facility] - Orthopedics [address] [place] [address] Abhijeet Gallego MD [address] [facility] [place] [address] Refill Request Social History Tobacco [...] PM CDT Legal Sex 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
--- OUTSIDE RECORDS SUMMARY | 2024-11-24 15:09 | XMS_ITS | Clinical Summary ---
Author Organization [facility] Address [address] [place] [address] Phone Care Team Providers Care Network Project Manager Name Role Phone Redd De Anda MD Primary Care Provider [phone] Allergies Active Allergy Reactions Criticality Noted Date Comments Codeine Other (See Comments) 01/16/2014 Extreme insomnia Empagliflozin Other (See Comments) 05/14/2022 Euglycemic dka Other reaction(s): BAR ASSISTANT Dysfunction Euglycemic dka Medications insulin aspart protamine-aspar [...] Encounters Date Type Department Care Team Description 11/11/2024 External Device Data [facility] Provider, Abstract 10/21/2024 External Device Data [facility] Provider, Abstract 10/16/2024 External Device Data [facility] Provider, Abstract 10/15/2024 External Device Data [facility] Provider, Abstract 10/14/2024 External Device Data [facility] Provider, Abstract 10/09/2024 3:45 PM CDT Office Visit [facility] Oncology and Hematology [facility] [address] [place] [address] Rey Reyna MD Chronic anemia (Primary Dx) 10/09/2024 Orders Only [facility] Oncology and Hematology [facility] [address] [place] [address] Rey Reyna MD 09/09/2024 External Device Data [facility] Provider, [...] on file Legal Sex Male 2:53 AM PROTOTYPE ENGINEER 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 Gender Identity Not on file Sexual Orientation Not on file Occupation Industry Job Start Date Job End Date Not on file Not on file Not on file Not on file Last Filed Vital Signs Vital Sign Reading Time Taken Comments Blood Pressure 133/72 10/09/2024 3:49 PM CDT Pulse 77 10/09/2024 3:49 PM CDT Temperature 36.7 C (98.1 F) 10/09/2024 3:49 PM CDT Respiratory Rate 15 10/09/2024 3:49 PM CDT Oxygen Saturation 97% 10/09/2024 3:49 PM CDT Inhaled Oxygen Concentration - - Weight 98.8 kg (217 lb 12.8 oz) 10/09/2024 3:49 PM CDT Height 175.3 cm (5' 9) 03/27/2023 1:38 PM CDT Body Mass Index 32.16 03/27/2023 1:38 PM CDT Plan of Treatment Upcoming Encounters Date Type Department Care Team (Late st Contact Info) Description 07/14/2025 2:45 PM PROTOTYPE ENGINEER MANAGER Office Visit [facility] Oncology and Hematology - [place] [address] [facility] [address] [place] [address] Rey Reyna MD [address] [place] [address] Health Maintenance Due Date Last [...] DIABETES HBA1C Q 6 MONTHS 04/30/2023 10/29/2022, COVID-19 Vaccine (2023-2 5 season) 2024 04/01/2024, 03/12/2023, 03/16/2022, Additional history exists DIABETES ANNUAL RETINAL EXAM 02/28/2025 02/29/2024, 02/03/2022 DTAP/TDAP/TD VACCINES (4 - T d or Tdap) 03/17/2032 03/17/2022, 08/01/2018, 01/03/2012 PNEUMOCOCCAL VACCINE 50+ YEARS Completed 1 06/16/2022, 07/29/2019, 02/25/2017, Additional history exists INFLUENZA VACCINE Completed 04/01/2024, , 03/02/2022, Additional history exists Medical Devices Implanted Type Area Wire Spring Relay Adjuster Device Identifier Shelf Expiration Date Model / Serial / Lot Knee Knee Procedures Procedure Name Priority Date/Time Associated Diagnosis Comments COMPREHENSIVE METABOLIC PANEL Routine 10/08/2024 11:44 AM CDT from Last 3 Months Results * COMPREHENSIVE METABOLIC PANEL (10/08/2024 11:44 AM CDT) Blood Rey Reyna MD CHEMISTRY ORDERABLES Final Resu lt from Last 3 Months Insurance [employer] [facility] [employer] [facility] Advance Directives For more information, please contact: [phone] * Full Code (Latest Code Status on File) Date Activated Date Inactivated Comments 10/16/2018 12:47 AM 10/17/2018 4:54 PM * Full Code Date Activated Date Inactivated Comments 01/27/2014 8:03 AM 01/27/2014 12:09 PM * Full Code Date Activated Date Inactivated Comments 01/27/2014 7:45 AM 01/27/2014 8:03 AM Care Teams Network Project Manager Relationship Specialty Start Date End Date Redd De Anda MD [address] [place] [id number] PCP - General Internal Medicine 03/27/23
--- OUTSIDE RECORDS SUMMARY | 2024-11-24 15:09 | XMS_ITS | Clinical Summary ---
Author Organization [facility] [employer] Address [address] [place] [address] Care Team Providers Care Top Lift Nailer Name Role Phone Eliceo Templeton RN Unavailable [phone] Casie Pruett RN Unavailable Unava ilable Redd De Anda MD Primary Care Provider [phone] Source Comments [facility],non-owned Affiliates and Associated Physician Practices is amultiple site organization consisting of ambulatory clinics and hospital sitesin [place], [place], [place] and [place]. This disclosure is being madepursuant to the Care Everywhere program and may not contain all information available regarding this patient. Last updated 18.[facility] [employer] Allergies Active Allergy Reactions Criticality Noted Date Comments Codeine 02/21/2010 Gets really hyper Empagliflozin CASHIER CHECKER Dysfunction 05/14/2022 Euglycemic dka Medications * Be [...] and heating? Not hard at all 10/28/2022 [facility] [place] of Occupat ional Health - Occupational Stress [...] place to sleep or slept in a fdc (including now)? 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 Disposition: trash. Onelia 11 Right Non Porous Tibial Baseplate Implanted:Qty: 1 on 09/27/2016 by Enmanuel Cerrato MD at [facility] Right: Knee [employer] 03/11/2026 [id number] / / [id number] Resurfacing Round Patellar Component Implanted:Qty: 1 on 09/27/2016 by Enmanuel Cerrato MD at [facility] Right: Knee [employer] 01/21/2026 [id number] / / [id number] High Flexion Articular Insert Implanted:Qty: 1 on 09/27/2016 by Enmanuel Cerrato MD at [facility] Right: Knee [employer] 07/02/2025 [id number] / / [id number] George Shai Tib Uncem Fem Implanted:Qty: 1 on 09/27/2016 by Enmanuel Cerrato MD at [facility] Orthopaedics BILL ONLY SHAI TIB UNCEM FEM SNORTHO / / Procedures Procedure Name Priority Date/Time Associated Diagnosis Comments COMPREHENSIVE METABOLIC PANEL STAT 01/08/2023 12:02 PM CDT HEPATITIS C AB SCREEN RFLX NAAT QUANT AM Draw 11/04/2022 4:26 AM CDT HEMOGLOBIN A1C Routine 10/29/2022 5:42 AM CDT MICROALB/CREAT RATIO URINE RANDOM PANEL Routine 05/17/2022 9:16 PM NURSE'S COMPANION from Last 3 Months or Most Recently Relevant to Health Maintenance Results * (ABNORMAL) COMPREHENSIVE METABOLIC PANEL (01/08/2023 12:02 PM CDT) BUN 15 7 - 26 mg/dL 01/08/2023 12:38 PM [facility] Creatinine 0.72 0.71 - 1.16 mg/dL 01/08/2023 12:38 PM [facility] Sodium 140 136 - 145 mmol/L 01/08/2023 12:38 PM [facility] Potassium 4.1 3.5 - 4.5 mmol/L 01/08/2023 12:38 PM [facility] Chloride 110(H) 98 - 107 mmol/L 01/08/2023 12:38 PM [facility] CO2 21(L) 22 - 29 mmol/L 01/08/2023 12:38 PM [facility] Glucose 171(H) 70 - 115 mg/dL 01/08/2023 12:38 PM [facility] Calcium 9.3 8.4 - 10.2 mg/dL 01/08/2023 12:38 PM [facility] Protein Total 7.3 6.0 - 8.3 g/dL 01/08/2023 12:38 PM [facility] Albumin 4.0 3.4 - 5.0 g/dL 01/08/2023 12:38 PM [facility] Bilirubin Total 0.3 0.2 - 1.2 mg/dL 01/08/2023 12:38 PM [facility] Alkaline Phosphatase 85 40 - 150 U/L 01/08/2023 12:38 PM [facility] ALT 15 5 - 55 U/L 01/08/2023 12:38 PM [facility] AST 21 5 - 34 U/L 01/08/2023 12:38 PM [facility] Anion Gap 13 8 - 18 01/08/2023 12:38 PM [facility] BUN/Creatinine Ratio 21 7 - 23 01/08/2023 12:38 PM [facility] Osmolality Calculated 295 270 - 300 mOsm/kg 01/08/2023 12:38 PM [facility] Albumin/Globulin Ratio 1.2 1.1 - 2.3 01/08/2023 12:38 PM [facility] eGFR by CKD-EPI >90 >=90 mL/min/1.7 3 m2 01/08/2023 12:38 PM [facility] Blood BLOOD SPECIMEN / Unknown Venipuncture / Unknown 01/08/2023 12:02 PM CDT 01/08/2023 12:13 PM [facility] us Joao PALOMINO-Venkatesh LAB - CHEMISTRY OR DERABLES Final Result [facility] [address] [place] [id number], [facility] [phone] * HEPATITIS C AB SCREEN RFLX NAAT QUANT (11/04/2022 4:26 AM [facility]) Hepatitis C Antibody Non-react kinjal Non-reac tive 11/04/2022 6:27 AM [facility] Comment:Hepatitis C Antibody screen indicates no [...] 11/04/2022 5:44 AM CDT us Daryl Nicolas APRN-BUYERS[employer] AGENT LAB - CHEMISTRY ORDERABL ES Final Result Performing Organization Address [facility]/ZIP Co de Phone Number [facility] [address] [place] [address], [facility] [phone] * (ABNORMAL) HEMOGLOBIN A1C (10/29/2022 5:42 AM CDT) Hemoglobin A1c 6.9(H) <=5.6 % 10/30/2022 1:24 PM CDT [facility] Estimated Average Glucose 151 mg/dL 10/30/2022 1:24 PM CDT [facility] Comment: HbA1c Interpretation: Normal : < 5.7% Pre-diabetes: 5.7-6.4% Diabetes: Equal to or greater than 6.5% Test results diagnostic of diabetes should be repeated for confirmation. Treatment target values recommended by ADA and other clinical organizations should be used to evaluate metabolic control in patients. Reference: [place] [employer], Standards of Care in Diabetes [...] CHEMISTRY ORDERABLES Final Result Performing Organization Address City/[facility]/ZIP Co de Phone Number [facility] [address] [place] [address], [place] [phone] * (ABNORMAL) MICROALB/CREAT RATIO URINE RANDOM PANEL (05/17/2022 9:16 PM NURSE'S COMPANION) Creatinine Urine 83.67 mg/dL 05/17/20 9:55 PM NURSE'S COMPANION [facility] Microalbumin Urine 13.8 mg/dL 05/17/2022 9:55 PM NURSE'S COMPANION [facility] Microalbumin/Crea tinine Ratio 164(H) <30 mg/g 05/17/2022 9:55 PM NURSE'S COMPANION [facility] Urine URINE SPECIMEN OBTAINED BY CLEAN CATCH PROCEDURE / Unknown Collection / Unknown 05/17/2022 9:16 PM NURSE'S COMPANION 05/17/2022 9:35 PM [facility] us Trinidad Mckenzie MD LAB - URINE CHEMISTRY ORDERABLES Final Result [facility] [address] [place], [place] [id number] from Last 3 Months or Most Recently [...] 4:13 PM 09/03/2014 6:45 PM Care Teams Top Lift Nailer Relationship Specialty Start Date End Date Redd D eAnda MD [address] [place], [place] [id number] PCP - General Internal Medicine 05/11/22 Eliceo Templeton RN Digital Media Planner 10/22/13 GideonCasie Celeste RN Registered Nurse 09/28/16
[2024-11-24 15:13] LABS: Hematocrit 52.2 % (42.0-52.0); Hemoglobin 16.8 g/dL (14.0-18.0); Immature Granulocyte Percent A 0.1 % (0-0.5); Lymphocytes Absolute Auto 1.19 K/mm3 (0.9-3.2); Mean Corpuscular HGB Conc 32.2 g/dl (32-36); Mean Corpuscular Hemoglobin 28.2 pg (26-34); Mean Corpuscular Volume 87.7 fl (80-100); Nucleated Red Blood Cells Absolute Auto 0.000 K/mm3 (0.0-0.012); Nucleated Red Blood Cells Perc 0.0 % (0.0-0.2); Platelet Count Result 107 k/mm3 (150-375); Red Blood Count 5.95 M/mm3 (4.6-6.20); White Blood Count 7.6 K/mm3 (4.5-10.0)
[2024-11-24] MEDS: LACTATED RINGERS 500 ML 999 ML IV CONT (15:20)
[2024-11-24] MEDS: ONDANSETRON INJ 4 MG/2 ML VIAL IV PUSH (15:21)
[2024-11-24] MEDS: MORPHINE SULFATE (*CRX) 4 MG/ML INJ IV PUSH (15:21)
[2024-11-24] MEDS: FAMOTIDINE 20 MG/2 ML VIAL IV PUSH (15:21)
[2024-11-24 15:26] LABS: Alanine Aminotransferase 25 U/L (6-50); Albumin Level 4.1 g/dL (3.5-5.1); Alkaline Phosphatase 76 U/L (38-126); Anion Gap 12 mmol/L (4-12); Aspartate Amino Transferase 32 U/L (17-59); Bilirubin,Total 0.6 mg/dL (0.2-1.3); Blood Urea Nitrogen 33 mg/dL (9-20); Calcium 8.8 mg/dL (8.4-10.2); Carbon Dioxide 21 mmol/L (22-30); Chloride 110 mmol/L (98-107); Estimated CRCL calculation 60 ml/min; Estimated Glomerular Filt Rate > 60; Glucose 249 mg/dL (65-110); Lipase 34 U/L (23-300); Magnesium 1.9 mg/dL (1.6-2.3); Potassium 4.3 mmol/L (3.4-5.0); Sodium 143 mmol/L (137-145); Total Protein 7.2 g/dL (6.3-8.2)
[2024-11-24 15:34] VITALS: BP 146/81; PULSE 81; RESP 18; O2SAT 97
[2024-11-24 16:18] LABS: Add Urine Microscopic? YES; Appearance Urine Clear (Clear); Glucose Urine UA Negative (Negative); Leukocyte Esterase Ur Negative LEU/UL (Negative); Nitrate Urine Negative (Negative); Specific Grav Ur > 1.045 (1.001-1.035)
[2024-11-24] MEDS: LACTATED RINGERS 1,000 ML 999 ML IV CONT (17:13)
--- NOTE | 2024-11-24 18:12 | P.HP_ITS ---
H&P: HPI History of Present Illness Date/Time: 11/24/24 18:12 Chief Complaint: Abdominal Pain, N/V/D Narrative: 74 y/o M with PMH of diabetes, hyperlipidemia, seizure disorder, anemia, and hypertension presents here with abdominal pain, nausea, vomiting and diarrhea. The patient presents here from home on 11/24 for further evaluation of abdominal pain, nausea, vomiting, and diarrhea. He reports last night he began experiencing profuse watery diarrhea, estimates he had 12 bowel movements last night. Diarrhea was accompanied by abdominal pain that he described as cramping, midline (upper and lower), nonradiating, and constant. He denies accompanying fever or constipation. He does report some diaphoresis prior to bowel movements. He reports abdominal surgery history - appendectomy, cholecystectomy, umbilical hernia repair or GI history - bowel obstruction. Last colonoscopy was in 2023 - he reports one benign polyp. Initial VS at presentation: 97.8? F, HR 89, R 20, 121/82, and 98% on RA. ED workup showed: No leukocytosis, no anemia, creatinine 1.12 and GFR >60, glucose 249, and UA showed a high specific gravity/2+ were changed/trace ketones/3-[address] of the abdomen/pelvis showed mild splenomegaly, findings concerning for partial/early complete SBO, mild mesenteric lymphadenopathy, mild bladder wall thickening probably secondary to incomplete distension and or chronic outlet obstruction from prostatomegaly, and small volume ascites. Review of Systems Review of Systems: All systems reviewed & are unremarkable except as noted in HPI and below PMFSH Past Medical History Medical History Neuropathy Hyperlipidemia DM2 (diabetes mellitus, type 2) Occult blood in stools Colon polyp Brain tumor History of seizure disorder Anemia Diabetes Hypertension Surgical History Surgical History H/O colonoscopy with polypectomy L4 through S1 on November 02, 2022 History of back surgery History of brain surgery Hx of total knee arthroplasty Bilaterally Family History Family History Unknown No problems noted. Social History Social History Social History: The patient lives home alone and has 2 children. 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 Code status full code. Smoking status: Never smoker Alcohol intake: never Substance use: never Other substance usage details: CBD Gummies Do You Feel Safe in your Home?: Yes Lack of Transportation: No Lack of Food: Never True Current Housing: I Have Housing Concerned About Future Housing: No Difficulty Paying Gas/Electric Bills: No Difficulty Paying for Meds: No Currently Unemployed: No Education: High School Diploma/GED Difficulty w/ Childcare or Family Care: No Living arrangements: with family Spiritual care concerns: No Meds Home Medications and Allergies Home Medications ?Medication ?Instructions ?Recorded ?Confirmed ?Type atorvastatin 40 mg tablet 40 mg PO DAILY 08/03/22 11/24/24 History insulin aspart U-100 100 unit/mL 11 unit subcut TIDWMEAL 08/03/22 11/24/24 History (3 mL) subcutaneous pen (Novolog FlexPen U-100 Insulin aspart) insulin glargine 100 unit/mL (3 40 unit subcut DAILY 08/03/22 11/24/24 History mL) subcutaneous pen (Lantus Solostar U-100 Insulin) multivitamin with minerals-folic 1 tablet PO DAILY 08/03/22 11/24/24 History acid 0.4 mg tablet pantoprazole 40 mg tablet,delayed 40 mg PO DAILY 08/03/22 11/24/24 History release zonisamide 100 mg capsule 200 mg PO HS 09/21/22 11/24/24 History lacosamide 100 mg tablet 100 mg PO DAILY 01/17/23 11/24/24 History levetiracetam 500 mg tablet 1,000 mg (2 x 500 mg) PO QAM #30 01/19/23 11/24/24 Rx (Keppra) tabs pregabalin 50 mg capsule (Lyrica) 300 mg (6 x 50 mg) [facility] HS #15 01/19/23 11/24/24 Rx caps pregabalin 150 mg capsule 150 mg PO QAM 09/12/23 11/24/24 History levetiracetam 500 mg tablet 1,000 mg PO HS 11/24/24 11/24/24 History (Keppra) Allergies Allergy/AdvReac Type Severity Reaction Status Date / Time codeine AdvReac Unknown Hyperactive Verified 11/24/24 14:34 empagliflozin (From AdvReac Unknown Other Verified 11/24/24 14:34 Jardiance) Vital Signs Vital Signs - 24 hr 11/24/24 11:38 11/24/24 13:44 11/24/24 14:30 Temperature 97.8 F 97.3 F L Pulse Rate 89 91 84 Respiratory Rate 20 20 Blood Pressure 121/82 130/68 162/80 H Pulse Oximetry 98 97 98 Oxygen Delivery Room Air Room Air 11/24/24 15:34 Temperature Pulse Rate 81 Respiratory Rate 18 Blood Pressure 146/81 H Pulse Oximetry 97 Oxygen Delivery Exam Const: General: no acute distress Other: , male, elderly, nontoxic appearance, fatigued HENMT: Face/Nose/Sinus: Normal nares present Mouth: Yes moist mucous membranes Eyes: General: appearance normal, both eyes and all related structures Sclera: sclerae normal Pupils: Equal, round and reactive pupils present EOM: EOMs intact bilaterally Resp: Effort & Inspection: normal respiratory effort Auscultation: clear to auscultation bilaterally Cardio: Rate: regular rate Rhythm: regular rhythm Other: S1-S2 present without murmur, rub, ectopy GI: Other: Quite bowel sounds in all quadrants, normoactive. Tenderness in all quadrants. Nondistended, soft. Skin: General skin exam: normal color and no rashes or lesions noted Wounds: no wounds Neuro: Speech: normal speech Motor exam (neuro): 5/5 motor strength present throughout Sensory Exam: normal sensation Other: A&O x4 Extrem: General: normal to inspection Psych: Mental Status: mental status grossly normal Affect: normal affect Other: Good insight and judgment, pleasant H&P: Results Labs Labs: Short CBC 11/24/24 Range/Units 15:07 WBC 7.6 (4.5-10.0) K/mm3 Hgb 16.8 (14.0-18.0) g/dL Hct 52.2 H (42.0-52.0) % Plt Count 107 L (150-375) k/mm3 BMP 11/24/24 15:07 Sodium 143 Potassium 4.3 Chloride 110 H Carbon Dioxide 21 L BUN 33 H D Creatinine 1.12 Glucose 249 H Calcium 8.8 Liver Function 11/24/24 Range/Units 15:07 Total Bilirubin 0.6 (0.2-1.3) mg/dL AST 32 (17-59) U/L ALT 25 (6-50) U/L Alkaline Phosphatase 76 (38-126) U/L Albumin 4.1 (3.5-5.1) g/dL Urine 11/24/24 Range/Units 16:09 Urine Color Dark yellow (Yellow) Urine Appearance Clear (Clear) Urine pH 5.5 (5.0-9.0) Ur Specific [place] > 1.045 H (1.001-1.035) Urine Protein 2+ H (Negative) mg/dL Urine Glucose (UA) Negative (Negative) mg/dL Assessment and Plan Assessment and plan (1) SBO (small bowel obstruction): Code(s): K56.609 - Unspecified intestinal obstruction, unspecified as to partial versus complete obstruction Status: Acute Assessment and Plan: - CT abd/pelvis: Mild splenomegaly. CT findings concerning for partial or early complete small bowel obstruction, candidate transition point at the terminal ileum. Mild mesenteric lymphadenopathy. Mild bladder wall thickening probably secondary to incomplete distention and/or chronic outlet obstruction from prostatomegaly. Small volume ascites. - IV fluids: 1L bolus, now on 125 mL/hr - NPO except meds, no active vomiting therefore decision made to hold off on NG tube - analgesics p.r.n. - Tylenol, [place], morphine - antiemetic p.r.n. 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 Code(s): E11.9 - Type 2 diabetes mellitus without complications Status: Chronic Assessment and Plan: - hypoglycemia protocol - POC blood glucose q6h - currently NPO - home medication: Hold NovoLog and Lantus, currently NPO - correct regimen ordered - high dose TIDWM, based off BMI - A1C 7.2% in 2022, update (3) Hypertension: Qualifiers: Hypertension type: primary hypertension Qualified Code(s): I10 - Essential (primary) hypertension Code(s): I10 - Essential (primary) hypertension Status: Chronic Assessment and Plan: - chronic, currently 146/81 - no current home medications - monitor Plan Diet: NPO GI Prophylaxis: Pantoprazole DVT Prophylaxis: SCDs IV fluids: 125 mL/hour Lines/Tubes: Peripheral IV Code Status: Full code Quality VTE Prophylaxis VTE prophylaxis: mechanical ordered Hospitalist MIPS Advance Care Plan I have confirmed that the patient's Advanced Care Plan is present, code status is documented, or surrogate decision maker is listed in patient medical record.: Yes Medication Reconciliation I have utilized all available resources to obtain, update and review the patients current medications (includes all prescriptions, OTC, herbals, cannabis, and nutritional supplements).: Yes
[2024-11-24 18:34] VITALS: BP 147/67; PULSE 78; RESP 18; TEMP 36.4; O2SAT 99
[2024-11-24 18:39] VITALS: BMI 31.6
--- NOTE | 2024-11-24 18:51 | ADMGEN ---
This patient, Dane Parker, was admitted to Medical Room 254-01. Patient/family oriented to hospital policies and general routines including ID bracelet, bed and alarms, visiting hours, pain management, procedures, bathroom and other care routines, personal items, smoking policy, room service/diet, and visiting hours. Information on how to activate the Rapid Response Team has been discussed. Patient/Family are encouraged to report perceived risks to care and to ask questions if they do not understand what they are told or what they should do.
[2024-11-24] MEDS: LACTATED RINGERS 1,000 ML 125 ML IV CONT (19:14)
[2024-11-24] MEDS: IBUPROFEN 600 MG TABLET PO (19:58)
[2024-11-24 21:42] VITALS: BP 150/60; PULSE 76; RESP 20; TEMP 36.5; O2SAT 98
[2024-11-24] MEDS: PREGABALIN (*CRX) 75 MG CAPSULE 300 MG BY MOUTH (22:03)
[2024-11-24] MEDS: ZONISAMIDE 100 MG CAPSULE 200 MG PO (22:03)
[2024-11-24] MEDS: MORPHINE SULFATE (*CRX) 2 MG/ML INJ IV PUSH (23:41)
[2024-11-25] MEDS: LACTATED RINGERS 1,000 ML 125 ML IV CONT ×3 (03:06→20:17)
[2024-11-25 05:18] VITALS: BP 140/60; PULSE 80; RESP 16; TEMP 36.6; O2SAT 97
[2024-11-25 06:23] LABS: Alanine Aminotransferase 17 U/L (6-50); Albumin Level 3.2 g/dL (3.5-5.1); Alkaline Phosphatase 60 U/L (38-126); Anion Gap 7 mmol/L (4-12); Aspartate Amino Transferase 25 U/L (17-59); Bilirubin,Total 0.5 mg/dL (0.2-1.3); Blood Urea Nitrogen 29 mg/dL (9-20); Calcium 8.1 mg/dL (8.4-10.2); Carbon Dioxide 25 mmol/L (22-30); Chloride 110 mmol/L (98-107); Estimated CRCL calculation 58 ml/min; Estimated Glomerular Filt Rate > 60; Glucose 150 mg/dL (65-110); Magnesium 1.8 mg/dL (1.6-2.3); Potassium 4.1 mmol/L (3.4-5.0); Sodium 142 mmol/L (137-145); Total Protein 5.8 g/dL (6.3-8.2)
[2024-11-25 06:41] LABS: Hematocrit 46.1 % (42.0-52.0); Hemoglobin 14.5 g/dL (14.0-18.0); Immature Granulocyte Percent A 0.2 % (0-0.5); Immature Platelet Fraction Pct 7.5 % (0.9-11.2); Lymphocytes Absolute Auto 1.52 K/mm3 (0.9-3.2); Mean Corpuscular HGB Conc 31.5 g/dl (32-36); Mean Corpuscular Hemoglobin 28.1 pg (26-34); Mean Corpuscular Volume 89.3 fl (80-100); Nucleated Red Blood Cells Absolute Auto 0.000 K/mm3 (0.0-0.012); Nucleated Red Blood Cells Perc 0.0 % (0.0-0.2); Platelet Count Result 86 k/mm3 (150-375); Red Blood Count 5.16 M/mm3 (4.6-6.20); White Blood Count 5.6 K/mm3 (4.5-10.0)
[2024-11-25 07:07] LABS: Hemoglobin A1C 6.9 % (<5.7)
--- NOTE | 2024-11-25 07:31 | P.PNIM_ITS ---
Progress Note: A&P Assessment and Plan (1) SBO (small bowel obstruction): Code(s): K56.609 - Unspecified intestinal obstruction, unspecified as to partial versus complete obstruction Status: Acute Assessment and Plan: - CT abd/pelvis: Mild splenomegaly. CT findings concerning for partial or early complete small bowel obstruction, candidate transition point at the terminal ileum. Mild mesenteric lymphadenopathy. Mild bladder wall thickening probably secondary to incomplete distention and/or chronic outlet obstruction from prostatomegaly. Small volume ascites. - IV fluids: 1L bolus, now on 125 mL/hr - NPO except meds, - no active vomiting therefore decision made to hold off on NG tube - analgesics p.r.n. - Tylenol, [place], morphine - antiemetic p.r.n. 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 Qualified Code(s): E11.9 - Type 2 diabetes mellitus without complications; Z79.4 - halfway (current) use of insulin Code(s): E11.9 - Type 2 diabetes mellitus without complications Status: Chronic Assessment and Plan: - hypoglycemia protocol - POC blood glucose q6h - currently NPO - home medication: Hold NovoLog and Lantus, currently NPO - correct regimen ordered - high dose TIDWM, based off BMI - A1C 7.2% in 2022, update (3) Hypertension: Qualifiers: Hypertension type: primary hypertension Qualified Code(s): I10 - Essential (primary) hypertension Code(s): I10 - Essential (primary) hypertension Status: Chronic Assessment and Plan: - chronic, currently 146/81 - no current home medications - monitor Plan Diet: NPO GI Prophylaxis: Pantoprazole DVT Prophylaxis: SCDs IV fluids: 125 mL/hour Lines/Tubes: Peripheral IV Code Status: Full code Disposition - will discharge home once stable and cleared by surgery. Time Spent With Patient Time with patient: 25 - 35 minutes Subjective Date/time seen: 11/25/24 07:31 Interval history: This is a 74-year-old male patient, he states that he is feeling somewhat improved compared to yesterday but still has some pain. He has not had a bowel movement but he is not nauseous and he is not vomiting. He is able to get up and ambulate, he was up in the chair this morning. He has been utilizing pain is not only when he needs it, he states right now he feels soreness but no sharp stabbing pains. He denies any fever or chills he denies any diarrhea. Review of Systems Review of Systems: All systems reviewed & are unremarkable except as noted in HPI and below Exam Narrative: quiet bs in all quads but normoactive. Const: General: no acute distress Other: , male, elderly, nontoxic appearance, fatigued HENMT: Face/Nose/Sinus: Normal nares present Mouth: Yes moist mucous membranes Eyes: General: appearance normal, both eyes and all related structures Sclera: sclerae normal Pupils: Equal, round and reactive pupils present EOM: EOMs intact bilaterally Resp: Effort & Inspection: normal respiratory effort Auscultation: clear to auscultation bilaterally Cardio: Rate: regular rate Rhythm: regular rhythm Other: S1-S2 present without murmur, rub, ectopy GI: Other: Quite bowel sounds in all quadrants, normoactive. Tenderness in all quadrants. Nondistended, soft. Skin: General skin exam: normal color and no rashes or lesions noted Wounds: no wounds Neuro: Cranial nerves: Yes Equal, round and reactive pupils present Speech: normal speech Motor exam (neuro): 5/5 motor strength present throughout Sensory Exam: normal sensation Other: A&O x4 Extrem: General: normal to inspection Psych: Mental Status: mental status grossly normal Affect: normal affect Other: Good insight and judgment, pleasant Objective Data Vital Signs Vital Signs: Vital Signs - 24 hr 11/24/24 11:38 11/24/24 13:44 11/24/24 14:30 Temperature 97.8 F 97.3 F L Pulse Rate 89 91 84 Respiratory Rate 20 20 Blood Pressure 121/82 130/68 162/80 H Pulse Oximetry 98 97 98 Oxygen Delivery Room Air Room Air 11/24/24 15:34 11/24/24 18:34 11/24/24 20:00 Temperature 97.5 F L Pulse Rate 81 78 Respiratory Rate 18 18 Blood Pressure 146/81 H 147/67 H Pulse Oximetry 97 99 Oxygen Delivery Room Air 11/24/24 21:42 11/25/24 05:18 Temperature 97.7 F 98 F Pulse Rate 76 80 Respiratory Rate 20 16 Blood Pressure 150/60 H 140/60 Pulse Oximetry 98 97 Oxygen Delivery Intake/Output Intake/Output: Intake & Output 11/22/24 11/23/24 11/24/24 11/25/24 23:59 23:59 23:59 23:59 Intake Total 1500 983.3 Output Total 975 Balance 1500 8.3 Meds/Results Medications: Active Medications Generic Name Dose Route Start Last Admin Trade Name Freq PRN Reason Stop Dose Admin Acetaminophen 650 mg 11/24/24 17:20 Acetaminophen 325 Mg Tablet PO Q4H PRN Mild Pain (1-3) or Fever Atorvastatin Calcium 40 mg 11/25/24 09:00 Atorvastatin 40 Mg Tablet PO DAILY SILVANA Dextrose 12.5 gm 11/24/24 18:26 Dextrose 50% 25 Gm/50 Ml Syringe IV PUSH PRN PRN Hypoglycemia Protocol Glucagon 1 mg 11/24/24 18:26 Glucagon For Inj 1 Mg Vial IM PRN PRN Hypoglycemia Protocol Glucose 15 gm 11/24/24 18:26 Glucose Oral Gel 15 Gm Of Glucse In 37.5 Gm Tube PO PRN PRN Hypoglycemia Protocol Lactated Ringer's 1,000 mls @ 125 mls/hr 11/24/24 17:20 11/25/24 03:06 Lr - Lactated Ringers Iv IV CONT 125 mls/hr .Q8H SILVANA Administration Dextrose 1,000 mls @ 100 mls/hr 11/24/24 18:26 Dextrose 5% 1,000 Ml IVPB PRN PRN Hypoglycemia Protocol Ibuprofen 600 mg 11/24/24 18:28 11/24/24 19:58 Ibuprofen 600 Mg Tablet PO 600 mg Q6H PRN Administration Pain Rated 4-6 Insulin Aspart 4 - 8 units 11/25/24 00:00 11/25/24 05:30 Insulin Aspart (*Bkc) 100 Units/Ml SUB-Q Not Given Q6HR SILVANA Protocol Lacosamide 100 mg 11/25/24 09:00 Lacosamide (*Crx) 100 Mg Tablet PO DAILY SILVANA Levetiracetam 1,000 mg 11/24/24 21:00 11/24/24 22:02 Levetiracetam 500 Mg Tablet PO 1,000 mg HS SILVANA Administration Levetiracetam 1,000 mg 11/25/24 09:00 Levetiracetam 500 Mg Tablet PO QAM [facility] Morphine Sulfate 2 mg 11/24/24 18:28 11/24/24 23:41 Morphine Sulfate (*Crx) 2 Mg/Ml Inj IV PUSH 2 mg Q4H PRN Administration Pain Rated 7-10 Multivitamins/Calcium 1 tablet 11/25/24 09:00 Therapeutic Multivitamins/Minerals Tab (*Bkc) PO DAILY [facility] Ondansetron HCl 4 mg 11/24/24 17:20 Ondansetron Inj 4 Mg/2 Ml Vial IV PUSH Q4H PRN Nausea Pantoprazole Sodium 40 mg 11/25/24 09:00 Pantoprazole Sodium Iv 40 Mg Vial IV PUSH QAM [facility] Pantoprazole Sodium 40 mg 11/25/24 09:00 Pantoprazole 40 Mg Tablet PO DAILY [facility] Pregabalin 150 mg 11/25/24 09:00 Pregabalin (*Crx) 75 Mg Capsule PO QAM [facility] Pregabalin 300 mg 11/24/24 21:00 11/24/24 22:03 Pregabalin (*Crx) 75 Mg Capsule BY MOUTH 300 mg HS SILVANA Administration Zonisamide 200 mg 11/24/24 21:00 11/24/24 22:03 Zonisamide 100 Mg Capsule PO 200 mg HS SILVANA Administration Radiology Results: ITS Impressions Abdomen/Pelvis CT 11/24/24 16:06 IMPRESSION: Mild splenomegaly. CT findings concerning for partial or early complete small bowel obstruction, candidate transition point at the terminal ileum. Mild mesenteric lymphadenopathy. Mild bladder wall thickening probably secondary to incomplete distention and/or chronic outlet obstruction from prostatomegaly. Small volume ascites. Labs Labs: Laboratory Results - last 24 hr 11/24/24 11/24/24 11/24/24 15:07 15:07 16:09 WBC 7.6 RBC 5.95 Hgb 16.8 Hct 52.2 H MCV 87.7 MCH 28.2 MCHC 32.2 RDW 14.6 H Plt Count 107 L MPV 12.1 H Immature Gran % (Auto) 0.1 Neut % (Auto) 68.9 Lymph % (Auto) 15.7 L [place] % (Auto) 14.1 H Eos % (Auto) 0.7 Baso % (Auto) 0.5 Lymph # (Auto) 1.19 [place] # (Auto) 1.1 H Eos # (Auto) 0.1 Baso # (Auto) 0.0 Abs Immat Gran (auto) 0.01 Absolute Neuts (auto) 5.2 Absolute Nucleated RBC 0.000 Nucleated RBC % 0.0 % Immature Plt Fraction Sodium 143 Potassium 4.3 Chloride 110 H Carbon Dioxide 21 L Anion Gap 12 BUN 33 H D Creatinine 1.12 Estim Creat Clear Calc 60 Estimated GFR > 60 Glucose 249 H POC Capillary Glucose Hemoglobin A1c Calcium 8.8 Magnesium 1.9 Cancelled Total Bilirubin 0.6 AST 32 ALT 25 Alkaline Phosphatase 76 Total Protein 7.2 Albumin 4.1 Lipase 34 Urine Color Dark yellow Urine Appearance Clear Urine pH 5.5 Ur Specific [place] > 1.045 H Urine Protein 2+ H Urine Glucose (UA) Negative Urine Ketones Trace H Ur Blood (Man) Negative Urine Nitrate Negative Urine Bilirubin Negative Urine Urobilinogen 1.0 Leukocyte Esterase Rfl Negative Urine RBC 3-5 H Urine WBC 0-5 Ur Squamous Epith Cells None seen Urine Bacteria None seen Urine Casts 3-5 11/24/24 11/25/24 11/25/24 23:40 05:20 05:35 WBC 5.6 RBC 5.16 Hgb 14.5 Hct 46.1 MCV 89.3 MCH 28.1 MCHC 31.5 L RDW 14.6 H Plt Count 86 L MPV 11.8 H Immature Gran % (Auto) 0.2 Neut % (Auto) 53.5 Lymph % (Auto) 27.1 [place] % (Auto) 15.2 H Eos % (Auto) 2.9 Baso % (Auto) 1.1 Lymph # (Auto) 1.52 [place] # (Auto) 0.9 H Eos # (Auto) 0.2 Baso # (Auto) 0.1 Abs Immat Gran (auto) 0.01 Absolute Neuts (auto) 3.0 Absolute Nucleated RBC 0.000 Nucleated RBC % 0.0 % Immature Plt Fraction 7.5 Sodium 142 Potassium 4.1 Chloride 110 H Carbon Dioxide 25 Anion Gap 7 BUN 29 H Creatinine 1.15 Estim Creat Clear Calc 58 Estimated GFR > 60 Glucose 150 H POC Capillary Glucose 153 H 156 H Hemoglobin A1c 6.9 H Calcium 8.1 L Magnesium 1.8 Total Bilirubin 0.5 AST 25 ALT 17 Alkaline Phosphatase 60 Total Protein 5.8 L Albumin 3.2 L Lipase Urine Color Urine Appearance Urine pH Ur Specific [place] Urine Protein Urine Glucose (UA) Urine Ketones Ur Blood (Man) Urine Nitrate Urine Bilirubin Urine Urobilinogen Leukocyte Esterase Rfl Urine RBC Urine WBC Ur Squamous Epith Cells Urine Bacteria Urine Casts Quality VTE Prophylaxis VTE prophylaxis: mechanical ordered Hospitalist MIPS Advance Care Plan I have confirmed that the patient's Advanced Care Plan is present, code status is documented, or surrogate decision maker is listed in patient medical record.: Yes Medication Reconciliation I have utilized all available resources to obtain, update and review the patients current medications (includes all prescriptions, OTC, herbals, cannabis, and nutritional supplements).: Yes
[2024-11-25] MEDS: PREGABALIN (*CRX) 75 MG CAPSULE 150 MG PO (08:54)
[2024-11-25] MEDS: THERAPEUTIC MULTIVITAMINS/MINERALS TAB (*BKC) 1 TABLET PO (08:54)
[2024-11-25] MEDS: LACOSAMIDE (*CRX) 100 MG TABLET PO (08:54)
[2024-11-25] MEDS: ATORVASTATIN 40 MG TABLET PO (08:54)
[2024-11-25] MEDS: PANTOPRAZOLE 40 MG TABLET PO (08:55)
[2024-11-25] MEDS: PANTOPRAZOLE SODIUM IV 40 MG VIAL IV PUSH (08:55)
--- NOTE | 2024-11-25 09:27 | PM.CNGS ---
Assessment and Plan Assessment and plan (1) Hypertension: Qualifiers: Hypertension type: primary hypertension Qualified Code(s): I10 - Essential (primary) hypertension Code(s): I10 - Essential (primary) hypertension Status: Chronic (2) SBO (small bowel obstruction): Code(s): K56.609 - Unspecified intestinal obstruction, unspecified as to partial versus complete obstruction Status: Acute Assessment and Plan: Patient presented to the ED yesterday with 1 day of abdominal pain, nausea/vomiting, diarrhea. He has a history of small-bowel obstruction 10 years ago. Abdominal surgical history includes cholecystectomy, appendectomy, umbilical hernia repair. CT demonstrated partial/early complete small bowel obstruction with transition point at the terminal ileum. Patient is not experiencing nausea or vomiting today. His last bowel movement was loose stool yesterday. He has not passed gas or had a bowel movement today yet. No signs of acute surgical abdomen. Bowel rest. Patient should remain NPO. Consider NG tube decompression. Will discuss with surgeon on-call. Continue to monitor with serial abdominal exams. History of Present Illness Consult details Consult date: 11/25/24 Reason for consult: other (Abdominal distension, CT findings concerning bowel obstruction) Requesting physician: Jose Manzano MD Narrative: Patient is a 74-year-old male with history of type 2 diabetes mellitus, hypertension, hyperlipidemia who been asked to see in surgical consultation for small bowel obstruction. Patient states that abdominal pain started 2 days ago around 5:00 p.m. prior to this he had last eaten at 1:00 p.m. He noted associated nausea and vomiting throughout the night, as well as diarrhea. Patient has history of small-bowel obstruction 10 years ago, for which he was hospitalized. He states that he was scheduled to get a colonoscopy and while undergoing bowel prep the obstruction resolved. He notes that he passed a ?blood sac? at this time and he was instructed not to take NSAIDs. Patient's last bowel movement was yesterday around 2:00 p.m. Abdominal surgical history includes cholecystectomy, appendectomy, and umbilical hernia repair. He last had a colonoscopy last year (per chart, it was in 2022) and multiple polyps were removed. Recommended next colonoscopy in 5 years. Upon arrival to ED, WBC count is normal. Abdomen/pelvis CT demonstrated small-bowel dilation measuring up to 4.7 cm beginning in the proximal jejunum, with gradual decreasing caliber towards the distal bowel. Possible transition point in the region of the terminal ileum uniform bowel wall enhancement. Small amount of interloop fluid. Patient is currently NPO. He does not note any nausea or vomiting today. [facility] Past Medical History Medical History Neuropathy Hyperlipidemia DM2 (diabetes mellitus, type 2) Occult blood in stools Colon polyp Brain tumor History of seizure disorder Anemia Diabetes Hypertension Surgical History Surgical History H/O colonoscopy with polypectomy L4 through S1 on November 02, 2022 History of back surgery History of brain surgery Hx of total knee arthroplasty Bilaterally Family History Family History Unknown No problems noted. Social History Social History Social History: The patient lives home alone and has 2 children. 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 Code status full code. Smoking status: Never smoker Alcohol intake: never Substance use: never Other substance usage details: CBD Gummies Do You Feel Safe in your Home?: Yes Lack of Transportation: No Lack of Food: Never True Current Housing: I Have Housing Concerned About Future Housing: No Difficulty Paying Gas/Electric Bills: No Difficulty Paying for Meds: No Currently Unemployed: No Education: High School Diploma/GED Difficulty w/ Childcare or Family Care: No Living arrangements: with family Spiritual care concerns: No Meds Home Medications and Allergies Home Medications ?Medication ?Instructions ?Recorded ?Confirmed ?Type atorvastatin 40 mg tablet 40 mg PO DAILY 08/03/22 11/24/24 History insulin aspart U-100 100 unit/mL 11 unit subcut TIDWMEAL 08/03/22 11/24/24 History (3 mL) subcutaneous pen (Novolog FlexPen U-100 Insulin aspart) insulin glargine 100 unit/mL (3 40 unit subcut DAILY 08/03/22 11/24/24 History mL) subcutaneous pen (Lantus Solostar U-100 Insulin) multivitamin with minerals-folic 1 tablet PO DAILY 08/03/22 11/24/24 History acid 0.4 mg tablet pantoprazole 40 mg tablet,delayed 40 mg PO DAILY 08/03/22 11/24/24 History release zonisamide 100 mg capsule 200 mg PO HS 09/21/22 11/24/24 History lacosamide 100 mg tablet 100 mg PO DAILY 01/17/23 11/24/24 History levetiracetam 500 mg tablet 1,000 mg (2 x 500 mg) PO QAM #30 01/19/23 11/24/24 Rx (Keppra) tabs pregabalin 50 mg capsule (Lyrica) 300 mg (6 x 50 mg) BYMOUTH HS #15 01/19/23 11/24/24 Rx caps pregabalin 150 mg capsule 150 mg PO QAM 09/12/23 11/24/24 History levetiracetam 500 mg tablet 1,000 mg PO HS 11/24/24 11/24/24 History (Keppra) Allergies Allergy/AdvReac Type Severity Reaction Status Date / Time codeine AdvReac Unknown Hyperactive Verified 11/24/24 14:34 empagliflozin (From AdvReac Unknown Other Verified 11/24/24 14:34 Jardiance) Vital Signs Vital Signs - 24 hr 11/24/24 11:38 11/24/24 13:44 11/24/24 14:30 Temperature 97.8 F 97.3 F L Pulse Rate 89 91 84 Respiratory Rate 20 20 Blood Pressure 121/82 130/68 162/80 H Pulse Oximetry 98 97 98 Oxygen Delivery Room Air Room Air 11/24/24 15:34 11/24/24 18:34 11/24/24 20:00 Temperature 97.5 F L Pulse Rate 81 78 Respiratory Rate 18 18 Blood Pressure 146/81 H 147/67 H Pulse Oximetry 97 99 Oxygen Delivery Room Air 11/24/24 21:42 11/25/24 05:18 11/25/24 08:55 Temperature 97.7 F 98 F Pulse Rate 76 80 Respiratory Rate 20 16 Blood Pressure 150/60 H 140/60 Pulse Oximetry 98 97 Oxygen Delivery Room Air Exam Const: General: comfortable and no acute distress Eyes: General: appearance normal, both eyes and all related structures Neck: Neck: supple Resp: Effort & Inspection: normal respiratory effort Cardio: Rate: regular rate GI: Inspection: distended GI Palp: Yes Soft to palpation, Yes Tenderness to palpation present (GI) (diffuse tenderness throughout abdomen) and No Guarding due to palpation present (GI) Auscultation: normal bowel sounds Other: Mildly distended Skin: General skin exam: normal color and no rashes or lesions noted Neuro: Speech: normal speech Sensory Exam: normal sensation Extrem: General: normal to inspection Psych: Mental Status: mental status grossly normal Results Labs 11/25/24 05:35 11/25/24 05:35 Labs: Abnormal lab results 11/24/24 11/24/24 11/24/24 Range/Units 15:07 16:09 23:40 Hct 52.2 H (42.0-52.0) % MCHC (32-36) g/dl RDW 14.6 H (11.5-14.5) % Plt Count 107 L (150-375) k/mm3 MPV 12.1 H (7.4-10.4) fl Lymph % (Auto) 15.7 L (18.3-44.2) % [place] % (Auto) 14.1 H (2.6-8.5) % [place] # (Auto) 1.1 H (0.1-0.6) K/mm3 Chloride 110 H (98-107) mmol/L Carbon Dioxide 21 L (22-30) mmol/L BUN 33 H D (9-20) mg/dL Glucose 249 H (65-110) mg/dL POC Capillary Glucose 153 H (65-105) mg/dl Hemoglobin A1c (<5.7) % Calcium (8.4-10.2) mg/dL Total Protein (6.3-8.2) g/dL Albumin (3.5-5.1) g/dL Ur Specific [place] > 1.045 H (1.001-1.035) Urine Protein 2+ H (Negative) mg/dL Urine Ketones Trace H (Negative) mg/dL Urine RBC 3-5 H (0-2) /hpf 11/25/24 11/25/24 Range/Units 05:20 05:35 Hct (42.0-52.0) % MCHC 31.5 L (32-36) g/dl RDW 14.6 H (11.5-14.5) % Plt Count 86 L (150-375) k/mm3 MPV 11.8 H (7.4-10.4) fl Lymph % (Auto) (18.3-44.2) % [place] % (Auto) 15.2 H (2.6-8.5) % [place] # (Auto) 0.9 H (0.1-0.6) K/mm3 Chloride 110 H (98-107) mmol/L Carbon Dioxide (22-30) mmol/L BUN 29 H (9-20) mg/dL Glucose 150 H (65-110) mg/dL POC Capillary Glucose 156 H (65-105) mg/dl Hemoglobin A1c 6.9 H (<5.7) % Calcium 8.1 L (8.4-10.2) mg/dL Total Protein 5.8 L (6.3-8.2) g/dL Albumin 3.2 L (3.5-5.1) g/dL Ur Specific [place] (1.001-1.035) Urine Protein (Negative) mg/dL Urine Ketones (Negative) mg/dL Urine RBC (0-2) /hpf Diabetes panel 11/24/24 11/25/24 Range/Units 15:07 05:35 Sodium 143 142 (137-145) mmol/L Potassium 4.3 4.1 (3.4-5.0) mmol/L Chloride 110 H 110 H (98-107) mmol/L Carbon Dioxide 21 L 25 (22-30) mmol/L BUN 33 H D 29 H (9-20) mg/dL Creatinine 1.12 1.15 (0.7-1.3) mg/dL Glucose 249 H 150 H (65-110) mg/dL Hemoglobin A1c 6.9 H (<5.7) % Calcium 8.8 8.1 L (8.4-10.2) mg/dL AST 32 25 (17-59) U/L ALT 25 17 (6-50) U/L Alkaline Phosphatase 76 60 (38-126) U/L Total Protein 7.2 5.8 L (6.3-8.2) g/dL Albumin 4.1 3.2 L (3.5-5.1) g/dL Calcium panel 11/24/24 11/25/24 Range/Units 15:07 05:35 Calcium 8.8 8.1 L (8.4-10.2) mg/dL Albumin 4.1 3.2 L (3.5-5.1) g/dL Pituitary panel 11/24/24 11/25/24 Range/Units 15:07 05:35 Sodium 143 142 (137-145) mmol/L Potassium 4.3 4.1 (3.4-5.0) mmol/L Chloride 110 H 110 H (98-107) mmol/L Carbon Dioxide 21 L 25 (22-30) mmol/L BUN 33 H D 29 H (9-20) mg/dL Creatinine 1.12 1.15 (0.7-1.3) mg/dL Glucose 249 H 150 H (65-110) mg/dL Calcium 8.8 8.1 L (8.4-10.2) mg/dL Adrenal panel 11/24/24 11/25/24 Range/Units 15:07 05:35 Sodium 143 142 (137-145) mmol/L Potassium 4.3 4.1 (3.4-5.0) mmol/L Chloride 110 H 110 H (98-107) mmol/L Carbon Dioxide 21 L 25 (22-30) mmol/L BUN 33 H D 29 H (9-20) mg/dL Creatinine 1.12 1.15 (0.7-1.3) mg/dL Glucose 249 H 150 H (65-110) mg/dL Calcium 8.8 8.1 L (8.4-10.2) mg/dL Total Bilirubin 0.6 0.5 (0.2-1.3) mg/dL AST 32 25 (17-59) U/L ALT 25 17 (6-50) U/L Alkaline Phosphatase 76 60 (38-126) U/L Total Protein 7.2 5.8 L (6.3-8.2) g/dL Albumin 4.1 3.2 L (3.5-5.1) g/dL All other labs normal. Imaging Abdomen CT scan report/results: report reviewed and image reviewed
[2024-11-25 14:00] VITALS: BP 135/71; PULSE 78; RESP 14; TEMP 36.6; O2SAT 98
[2024-11-25] MEDS: ONDANSETRON INJ 4 MG/2 ML VIAL IV PUSH (19:19)
[2024-11-25] MEDS: ACETAMINOPHEN 325 MG TABLET 650 MG PO (19:22)
[2024-11-25] MEDS: PREGABALIN (*CRX) 75 MG CAPSULE 300 MG BY MOUTH (20:17)
[2024-11-25] MEDS: ZONISAMIDE 100 MG CAPSULE 200 MG PO (20:17)
[2024-11-25 21:30] VITALS: BP 147/69; PULSE 79; RESP 16; TEMP 36.7; O2SAT 96
[2024-11-25 22:33] VITALS: O2SAT 98
[2024-11-26] MEDS: ONDANSETRON INJ 4 MG/2 ML VIAL IV PUSH ×2 (00:18→13:41)
[2024-11-26] MEDS: LACTATED RINGERS 1,000 ML 125 ML IV CONT ×3 (04:25→20:42)
[2024-11-26 04:30] VITALS: BP 151/71; PULSE 77; RESP 16; TEMP 36.4; O2SAT 98
[2024-11-26 05:57] LABS: Hematocrit 43.7 % (42.0-52.0); Hemoglobin 13.7 g/dL (14.0-18.0); Immature Granulocyte Percent A 0.5 % (0-0.5); Immature Platelet Fraction Pct 6.9 % (0.9-11.2); Lymphocytes Absolute Auto 1.08 K/mm3 (0.9-3.2); Mean Corpuscular HGB Conc 31.4 g/dl (32-36); Mean Corpuscular Hemoglobin 28.0 pg (26-34); Mean Corpuscular Volume 89.2 fl (80-100); Nucleated Red Blood Cells Absolute Auto 0.000 K/mm3 (0.0-0.012); Nucleated Red Blood Cells Perc 0.0 % (0.0-0.2); Platelet Count Result 71 k/mm3 (150-375); Red Blood Count 4.90 M/mm3 (4.6-6.20); White Blood Count 4.4 K/mm3 (4.5-10.0)
[2024-11-26 06:48] LABS: Alanine Aminotransferase 13 U/L (6-50); Albumin Level 2.9 g/dL (3.5-5.1); Alkaline Phosphatase 58 U/L (38-126); Anion Gap 8 mmol/L (4-12); Aspartate Amino Transferase 20 U/L (17-59); Bilirubin,Total 0.7 mg/dL (0.2-1.3); Blood Urea Nitrogen 20 mg/dL (9-20); Calcium 8.1 mg/dL (8.4-10.2); Carbon Dioxide 23 mmol/L (22-30); Chloride 109 mmol/L (98-107); Estimated CRCL calculation 62 ml/min; Estimated Glomerular Filt Rate > 60; Glucose 149 mg/dL (65-110); Potassium 3.8 mmol/L (3.4-5.0); Sodium 140 mmol/L (137-145); Total Protein 5.4 g/dL (6.3-8.2)
--- NOTE | 2024-11-26 07:35 | P.PNIM_ITS ---
Progress Note: A&P Assessment and Plan (1) SBO (small bowel obstruction): Code(s): K56.609 - Unspecified intestinal obstruction, unspecified as to partial versus complete obstruction Status: Acute Assessment and Plan: - CT abd/pelvis: Mild splenomegaly. CT findings concerning for partial or early complete small bowel obstruction, candidate transition point at the terminal ileum. Mild mesenteric lymphadenopathy. Mild bladder wall thickening probably secondary to incomplete distention and/or chronic outlet obstruction from prostatomegaly. Small volume ascites. Plan for SBS. - IV fluids: 1L bolus, now on 125 mL/hr - clear liquid. NPO and NG tube placement if worsening. - analgesics p.r.n. - Tylenol, [place], morphine - antiemetic p.r.n. - daily clinical reassessment for improvement -Surgery team on board . 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 Diabetes mellitus complication status: without complication Qualified Code(s): E11.9 - Type 2 diabetes mellitus without complications; Z79.4 - skilled nursing (current) use of insulin Code(s): E11.9 - Type 2 diabetes mellitus without complications Status: Chronic Assessment and Plan: - hypoglycemia protocol - POC blood glucose q6h - currently NPO - home medication: SSi and acuuchecks - correct regimen ordered - high dose TIDWM, based off BMI - A1C 7.2% in 2022, update (3) Hypertension: Qualifiers: Hypertension type: primary hypertension Qualified Code(s): I10 - Essential (primary) hypertension Code(s): I10 - Essential (primary) hypertension Status: Chronic Assessment and Plan: - chronic, currently 146/81 - no current home medications - monitor Plan Diet: NPO GI Prophylaxis: Pantoprazole DVT Prophylaxis: SCDs IV fluids: 125 mL/hour Lines/Tubes: Peripheral IV Code Status: Full code Disposition - will discharge home once stable and cleared by surgery. Subjective Date/time seen: 11/26/24 07:35 Interval history: per HPI: 74 y/o M with PMH of diabetes, hyperlipidemia, seizure disorder, anemia, and hypertension presents here with abdominal pain, nausea, vomiting and diarrhea. The patient presents here from home on 11/24 for further evaluation of abdominal pain, nausea, vomiting, and diarrhea. He reports last night he began experiencing profuse watery diarrhea, estimates he had 12 bowel movements last night. Diarrhea was accompanied by abdominal pain that he described as cramping, midline (upper and lower), nonradiating, and constant. He denies accompanying fever or constipation. He does report some diaphoresis prior to bowel movements. He reports abdominal surgery history - appendectomy, cholecystectomy, umbilical hernia repair or GI history - bowel obstruction. Last colonoscopy was in 2023 - he reports one benign polyp. Initial VS at presentation: 97.8? F, HR 89, R 20, 121/82, and 98% on RA. ED workup showed: No leukocytosis, no anemia, creatinine 1.12 and GFR >60, glucose 249, and UA showed a high specific gravity/2+ were changed/trace ketones/3-[address] of the abdomen/pelvis showed mild splenomegaly, findings concerning for partial/early complete SBO, mild mesenteric lymphadenopathy, mild bladder wall thickening probably secondary to incomplete distension and or chronic outlet obstruction from prostatomegaly, and small volume ascites 11/26/24 Patient was seen and examined at bedside. She is still complaining of abdominal pain, nausea vomiting. He did not tolerate food last night. He had clear liquid diet this morning patient is still feeling nauseous. Last BM was 3 days ago. Complaining of abdominal bloating. Surgery team on board . Plan for SBS. NG tube placement if worsening. Review of Systems Review of Systems: All systems reviewed & are unremarkable except as noted in HPI and below Exam Narrative: quiet bs in all quads but normoactive. Const: General: no acute distress Other: , male, elderly, nontoxic appearance, fatigued HENMT: Face/Nose/Sinus: Normal nares present Mouth: Yes moist mucous membranes Eyes: General: appearance normal, both eyes and all related structures Sclera: sclerae normal Pupils: Equal, round and reactive pupils present EOM: EOMs intact bilaterally Resp: Effort & Inspection: normal respiratory effort Auscultation: clear to auscultation bilaterally Cardio: Rate: regular rate Rhythm: regular rhythm Other: S1-S2 present without murmur, rub, ectopy GI: Other: Quite bowel sounds in all quadrants, normoactive. Tenderness in all quadrants. Nondistended, soft. Skin: General skin exam: normal color and no rashes or lesions noted Wounds: no wounds Neuro: Cranial nerves: Yes Equal, round and reactive pupils present Speech: normal speech Motor exam (neuro): 5/5 motor strength present throughout Sensory Exam: normal sensation Other: A&O x4 Extrem: General: normal to inspection Psych: Mental Status: mental status grossly normal Affect: normal affect Other: Good insight and judgment, pleasant Objective Data Vital Signs Vital Signs: Vital Signs - 24 hr 11/25/24 08:55 11/25/24 14:00 11/25/24 20:00 Temperature 97.8 F Pulse Rate 78 Respiratory Rate 14 Blood Pressure 135/71 Pulse Oximetry 98 Oxygen Delivery Room Air Room Air 11/25/24 21:30 11/25/24 22:33 11/26/24 04:30 Temperature 98.0 F 97.6 F Pulse Rate 79 77 Respiratory Rate 16 16 Blood Pressure 147/69 H 151/71 H Pulse Oximetry 96 98 98 Oxygen Delivery Room Air Intake/Output Intake/Output: Intake & Output 11/23/24 11/24/24 11/25/24 11/26/24 23:59 23:59 23:59 23:59 Intake Total 1500 3673.3 1400 Output Total 975 900 Balance 1500 2698.3 500 Meds/Results Medications: Active Medications Generic Name Dose Route Start Last Admin Trade Name Freq PRN Reason Stop Dose Admin Acetaminophen 650 mg 11/24/24 17:20 11/25/24 19:22 Acetaminophen 325 Mg Tablet PO 650 mg Q4H PRN Administration Mild Pain (1-3) or Fever Atorvastatin Calcium 40 mg 11/25/24 09:00 11/25/24 08:54 Atorvastatin 40 Mg Tablet PO 40 mg DAILY SILVANA Administration Dextrose 12.5 gm 11/24/24 18:26 Dextrose 50% 25 Gm/50 Ml Syringe IV PUSH PRN PRN Hypoglycemia Protocol Glucagon 1 mg 11/24/24 18:26 Glucagon For Inj 1 Mg Vial IM PRN PRN Hypoglycemia Protocol Glucose 15 gm 11/24/24 18:26 Glucose Oral Gel 15 Gm Of Glucse In 37.5 Gm Tube PO PRN PRN Hypoglycemia Protocol Lactated Ringer's 1,000 mls @ 125 mls/hr 11/24/24 17:20 11/26/24 04:25 Lr - Lactated Ringers Iv IV CONT 125 mls/hr .Q8H SILVANA Administration Dextrose 1,000 mls @ 100 mls/hr 11/24/24 18:26 Dextrose 5% 1,000 Ml IVPB PRN PRN Hypoglycemia Protocol Ibuprofen 600 mg 11/24/24 18:28 11/24/24 19:58 Ibuprofen 600 Mg Tablet PO 600 mg Q6H PRN Administration Pain Rated 4-6 Insulin Aspart 4 - 8 units 11/25/24 16:30 11/25/24 20:22 Insulin Aspart (*Bkc) 100 Units/Ml SUB-Q Not Given ACHS SILVANA Protocol Lacosamide 100 mg 11/25/24 09:00 11/25/24 08:54 Lacosamide (*Crx) 100 Mg Tablet PO 100 mg DAILY SILVANA Administration Levetiracetam 1,000 mg 11/24/24 21:00 11/25/24 20:18 Levetiracetam 500 Mg Tablet PO 1,000 mg HS SILVANA Administration Levetiracetam 1,000 mg 11/25/24 09:00 11/25/24 08:54 Levetiracetam 500 Mg Tablet PO 1,000 mg QAM SILVANA Administration Morphine Sulfate 2 mg 11/24/24 18:28 11/24/24 23:41 Morphine Sulfate (*Crx) 2 Mg/Ml Inj IV PUSH 2 mg Q4H PRN Administration Pain Rated 7-10 Multivitamins/Calcium 1 tablet 11/25/24 09:00 11/25/24 08:54 Therapeutic Multivitamins/Minerals Tab (*Bkc) PO 1 tablet DAILY SILVANA Administration Ondansetron HCl 4 mg 11/24/24 17:20 11/26/24 00:18 Ondansetron Inj 4 Mg/2 Ml Vial IV PUSH 4 mg Q4H PRN Administration Nausea Pantoprazole Sodium 40 mg 11/25/24 09:00 11/25/24 08:55 Pantoprazole Sodium Iv 40 Mg Vial IV PUSH 40 mg QAM SILVANA Administration Pantoprazole Sodium 40 mg 11/25/24 09:00 11/25/24 08:55 Pantoprazole 40 Mg Tablet PO 40 mg DAILY SILVANA Administration Pregabalin 150 mg 11/25/24 09:00 11/25/24 08:54 Pregabalin (*Crx) 75 Mg Capsule PO 150 mg QAM SILVANA Administration Pregabalin 300 mg 11/24/24 21:00 11/25/24 20:17 Pregabalin (*Crx) 75 Mg Capsule BY MOUTH 300 mg HS SILVANA Administration Zonisamide 200 mg 11/24/24 21:00 11/25/24 20:17 Zonisamide 100 Mg Capsule PO 200 mg HS SILVANA Administration Radiology Results: ITS Impressions Abdomen/Pelvis CT 11/24/24 16:06 IMPRESSION: Mild splenomegaly. CT findings concerning for partial or early complete small bowel obstruction, candidate transition point at the terminal ileum. Mild mesenteric lymphadenopathy. Mild bladder wall thickening probably secondary to incomplete distention and/or chronic outlet obstruction from prostatomegaly. Small volume ascites. Labs Labs: Laboratory Results - last 24 hr 11/25/24 11/25/24 11/25/24 11:54 17:23 20:22 WBC RBC Hgb Hct MCV MCH MCHC RDW Plt Count MPV Immature Gran % (Auto) Neut % (Auto) Lymph % (Auto) [place] % (Auto) Eos % (Auto) Baso % (Auto) Lymph # (Auto) [place] # (Auto) Eos # (Auto) Baso # (Auto) Abs Immat Gran (auto) Absolute Neuts (auto) Absolute Nucleated RBC Nucleated RBC % % Immature Plt Fraction Sodium Potassium Chloride Carbon Dioxide Anion Gap BUN Creatinine Estim Creat Clear Calc Estimated GFR Glucose POC Capillary Glucose 143 H 166 H 167 H Calcium Total Bilirubin AST ALT Alkaline Phosphatase Total Protein Albumin 11/26/24 05:19 WBC 4.4 L RBC 4.90 Hgb 13.7 L Hct 43.7 MCV 89.2 MCH 28.0 MCHC 31.4 L RDW 14.3 Plt Count 71 L MPV 11.8 H Immature Gran % (Auto) 0.5 Neut % (Auto) 56.4 Lymph % (Auto) 24.5 [place] % (Auto) 15.4 H Eos % (Auto) 2.3 Baso % (Auto) 0.9 Lymph # (Auto) 1.08 [place] # (Auto) 0.7 H Eos # (Auto) 0.1 Baso # (Auto) 0.0 Abs Immat Gran (auto) 0.02 Absolute Neuts (auto) 2.5 Absolute Nucleated RBC 0.000 Nucleated RBC % 0.0 % Immature Plt Fraction 6.9 Sodium 140 Potassium 3.8 Chloride 109 H Carbon Dioxide 23 Anion Gap 8 BUN 20 Creatinine 1.07 Estim Creat Clear Calc 62 Estimated GFR > 60 Glucose 149 H POC Capillary Glucose Calcium 8.1 L Total Bilirubin 0.7 AST 20 ALT 13 Alkaline Phosphatase 58 Total Protein 5.4 L Albumin 2.9 L Quality VTE Prophylaxis VTE prophylaxis: mechanical ordered
[2024-11-26] MEDS: LACOSAMIDE (*CRX) 100 MG TABLET PO (08:28)
[2024-11-26] MEDS: PREGABALIN (*CRX) 75 MG CAPSULE 150 MG PO (08:28)
[2024-11-26] MEDS: PANTOPRAZOLE 40 MG TABLET PO (08:28)
[2024-11-26] MEDS: ATORVASTATIN 40 MG TABLET PO (08:28)
[2024-11-26] MEDS: ACETAMINOPHEN 325 MG TABLET 650 MG PO (08:28)
[2024-11-26] MEDS: THERAPEUTIC MULTIVITAMINS/MINERALS TAB (*BKC) 1 TABLET PO (08:28)
[2024-11-26] MEDS: PANTOPRAZOLE SODIUM IV 40 MG VIAL IV PUSH (08:29)
--- NOTE | 2024-11-26 08:52 | P.PNGS_ITS ---
Progress Note: A&P Assessment and Plan (1) SBO (small bowel obstruction): Code(s): K56.609 - Unspecified intestinal obstruction, unspecified as to partial versus complete obstruction Status: Acute Assessment and Plan: * Not tolerating clear liquids. Still having abdominal pain and nausea with no bowel function. No peritoneal signs on exam. * Obstructive series ordered this morning. Depending on these results, could consider stimulating with a dulcolax suppository. * Will continue clear liquids for now. Discussed if nausea gets worse and he begins vomiting, then he will need NG placement and be made NPO. Plan I have discussed the patient's case and plan of care with Dr. Garcia. Subjective Subjective Date/Time Seen: 11/26/24 08:52 Patient reports: no new complaints, still having pain, no flatus, no bowel movement, nausea and afebrile Interval history: Patient not tolerating clear liquids. Reports having increased right-sided abdominal cramping and pain once trying the clear liquid tray yesterday. He did have some water this morning and was not having issues with that. He has worsening nausea and dry heaving yesterday. No vomiting. He is still slightly nauseous this morning but no more dry heaving. He is still having some mild cramping pain this morning. No flatus or BM. Feels bloated. Exam Const: General: no acute distress and uncomfortable Orientation/consciousness: patient oriented x3 GI: Inspection: distended GI Palp: Yes Soft to palpation, Yes Tenderness to palpation present (GI) (mild diffuse tenderness), No Guarding due to palpation present (GI), No Hernia present and No Rebound tenderness present Auscultation: Hypoactive bowel sounds present Objective Data Vital Signs Vital Signs: Vital Signs - 24 hr 11/25/24 08:55 11/25/24 14:00 11/25/24 20:00 Temperature 97.8 F Pulse Rate 78 Respiratory Rate 14 Blood Pressure 135/71 Pulse Oximetry 98 Oxygen Delivery Room Air Room Air 11/25/24 21:30 11/25/24 22:33 11/26/24 04:30 Temperature 98.0 F 97.6 F Pulse Rate 79 77 Respiratory Rate 16 16 Blood Pressure 147/69 H 151/71 H Pulse Oximetry 96 98 98 Oxygen Delivery Room Air 11/26/24 08:30 Temperature Pulse Rate Respiratory Rate Blood Pressure Pulse Oximetry Oxygen Delivery Room Air Intake/Output Intake/Output: Intake & Output 11/23/24 11/24/24 11/25/24 11/26/24 23:59 23:59 23:59 23:59 Intake Total 1500 3673.3 1400 Output Total 975 900 Balance 1500 2698.3 500 Meds/Results Medications: Active Medications Generic Name Dose Route Start Last Admin Trade Name Freq PRN Reason Stop Dose Admin Acetaminophen 650 mg 11/24/24 17:20 11/26/24 08:28 Acetaminophen 325 Mg Tablet PO 650 mg Q4H PRN Administration Mild Pain (1-3) or Fever Atorvastatin Calcium 40 mg 11/25/24 09:00 11/26/24 08:28 Atorvastatin 40 Mg Tablet PO 40 mg DAILY SILVANA Administration Dextrose 12.5 gm 11/24/24 18:26 Dextrose 50% 25 Gm/50 Ml Syringe IV PUSH PRN PRN Hypoglycemia Protocol Glucagon 1 mg 11/24/24 18:26 Glucagon For Inj 1 Mg Vial IM PRN PRN Hypoglycemia Protocol Glucose 15 gm 11/24/24 18:26 Glucose Oral Gel 15 Gm Of Glucse In 37.5 Gm Tube PO PRN PRN Hypoglycemia Protocol Lactated Ringer's 1,000 mls @ 125 mls/hr 11/24/24 17:20 11/26/24 04:25 Lr - Lactated Ringers Iv IV CONT 125 mls/hr .Q8H SILVANA Administration Dextrose 1,000 mls @ 100 mls/hr 11/24/24 18:26 Dextrose 5% 1,000 Ml IVPB PRN PRN Hypoglycemia Protocol Ibuprofen 600 mg 11/24/24 18:28 11/24/24 19:58 Ibuprofen 600 Mg Tablet PO 600 mg Q6H PRN Administration Pain Rated 4-6 Insulin Aspart 4 - 8 units 11/25/24 16:30 11/26/24 08:27 Insulin Aspart (*Bkc) 100 Units/Ml SUB-Q Not Given ACHS SILVANA Protocol Lacosamide 100 mg 11/25/24 09:00 11/26/24 08:28 Lacosamide (*Crx) 100 Mg Tablet PO 100 mg DAILY SILVANA Administration Levetiracetam 1,000 mg 11/24/24 21:00 11/25/24 20:18 Levetiracetam 500 Mg Tablet PO 1,000 mg HS SILVANA Administration Levetiracetam 1,000 mg 11/25/24 09:00 11/26/24 08:28 Levetiracetam 500 Mg Tablet PO 1,000 mg QAM SILVANA Administration Morphine Sulfate 2 mg 11/24/24 18:28 11/24/24 23:41 Morphine Sulfate (*Crx) 2 Mg/Ml Inj IV PUSH 2 mg Q4H PRN Administration Pain Rated 7-10 Multivitamins/Calcium 1 tablet 11/25/24 09:00 11/26/24 08:28 Therapeutic Multivitamins/Minerals Tab (*Bkc) PO 1 tablet DAILY SILVANA Administration Ondansetron HCl 4 mg 11/24/24 17:20 11/26/24 00:18 Ondansetron Inj 4 Mg/2 Ml Vial IV PUSH 4 mg Q4H PRN Administration Nausea Pantoprazole Sodium 40 mg 11/25/24 09:00 11/26/24 08:29 Pantoprazole Sodium Iv 40 Mg Vial IV PUSH 40 mg QAM SILVANA Administration Pregabalin 150 mg 11/25/24 09:00 11/26/24 08:28 Pregabalin (*Crx) 75 Mg Capsule PO 150 mg QAM SILVANA Administration Pregabalin 300 mg 11/24/24 21:00 11/25/24 20:17 Pregabalin (*Crx) 75 Mg Capsule BY MOUTH 300 mg HS SILVANA Administration Zonisamide 200 mg 11/24/24 21:00 11/25/24 20:17 Zonisamide 100 Mg Capsule PO 200 mg HS SILVANA Administration Radiology Results: ITS Impressions Abdomen/Pelvis CT 11/24/24 16:06 IMPRESSION: Mild splenomegaly. CT findings concerning for partial or early complete small bowel obstruction, candidate transition point at the terminal ileum. Mild mesenteric lymphadenopathy. Mild bladder wall thickening probably secondary to incomplete distention and/or chronic outlet obstruction from prostatomegaly. Small volume ascites. Labs Labs: Laboratory Results - last 24 hr 11/25/24 11/25/24 11/25/24 11:54 17:23 20:22 WBC RBC Hgb Hct MCV MCH MCHC RDW Plt Count MPV Immature Gran % (Auto) Neut % (Auto) Lymph % (Auto) [place] % (Auto) Eos % (Auto) Baso % (Auto) Lymph # (Auto) [place] # (Auto) Eos # (Auto) Baso # (Auto) Abs Immat Gran (auto) Absolute Neuts (auto) Absolute Nucleated RBC Nucleated RBC % % Immature Plt Fraction Sodium Potassium Chloride Carbon Dioxide Anion Gap BUN Creatinine Estim Creat Clear Calc Estimated GFR Glucose POC Capillary Glucose 143 H 166 H 167 H Calcium Total Bilirubin AST ALT Alkaline Phosphatase Total Protein Albumin 11/26/24 11/26/24 05:19 07:26 WBC 4.4 L RBC 4.90 Hgb 13.7 L Hct 43.7 MCV 89.2 MCH 28.0 MCHC 31.4 L RDW 14.3 Plt Count 71 L MPV 11.8 H Immature Gran % (Auto) 0.5 Neut % (Auto) 56.4 Lymph % (Auto) 24.5 [place] % (Auto) 15.4 H Eos % (Auto) 2.3 Baso % (Auto) 0.9 Lymph # (Auto) 1.08 [place] # (Auto) 0.7 H Eos # (Auto) 0.1 Baso # (Auto) 0.0 Abs Immat Gran (auto) 0.02 Absolute Neuts (auto) 2.5 Absolute Nucleated RBC 0.000 Nucleated RBC % 0.0 % Immature Plt Fraction 6.9 Sodium 140 Potassium 3.8 Chloride 109 H Carbon Dioxide 23 Anion Gap 8 BUN 20 Creatinine 1.07 Estim Creat Clear Calc 62 Estimated GFR > 60 Glucose 149 H POC Capillary Glucose 147 H Calcium 8.1 L Total Bilirubin 0.7 AST 20 ALT 13 Alkaline Phosphatase 58 Total Protein 5.4 L Albumin 2.9 L
[2024-11-26] MEDS: MORPHINE SULFATE (*CRX) 2 MG/ML INJ IV PUSH (13:41)
[2024-11-26 13:45] VITALS: BP 147/70; PULSE 74; RESP 18; TEMP 36.7; O2SAT 97
[2024-11-26 19:49] VITALS: BP 145/70; PULSE 85; RESP 17; TEMP 36.7; O2SAT 93
[2024-11-26] MEDS: levETIRAcetam 1000MG/NACL100ML 1,000 MG/100 ML BAG 400 MG IVPB (20:33)
[2024-11-27 05:20] VITALS: BP 145/74; PULSE 81; RESP 17; TEMP 36.7; O2SAT 99
[2024-11-27 05:34] LABS: Hematocrit 44.2 % (42.0-52.0); Hemoglobin 14.0 g/dL (14.0-18.0); Immature Granulocyte Percent A 0.2 % (0-0.5); Immature Platelet Fraction Pct 6.8 % (0.9-11.2); Lymphocytes Absolute Auto 1.30 K/mm3 (0.9-3.2); Mean Corpuscular HGB Conc 31.7 g/dl (32-36); Mean Corpuscular Hemoglobin 28.1 pg (26-34); Mean Corpuscular Volume 88.6 fl (80-100); Nucleated Red Blood Cells Absolute Auto 0.000 K/mm3 (0.0-0.012); Nucleated Red Blood Cells Perc 0.0 % (0.0-0.2); Platelet Count Result 78 k/mm3 (150-375); Red Blood Count 4.99 M/mm3 (4.6-6.20); White Blood Count 4.2 K/mm3 (4.5-10.0)
[2024-11-27 05:45] LABS: Alanine Aminotransferase 13 U/L (6-50); Albumin Level 3.2 g/dL (3.5-5.1); Alkaline Phosphatase 61 U/L (38-126); Anion Gap 9 mmol/L (4-12); Aspartate Amino Transferase 21 U/L (17-59); Bilirubin,Total 0.5 mg/dL (0.2-1.3); Blood Urea Nitrogen 17 mg/dL (9-20); Calcium 8.4 mg/dL (8.4-10.2); Carbon Dioxide 25 mmol/L (22-30); Chloride 110 mmol/L (98-107); Estimated CRCL calculation 61 ml/min; Estimated Glomerular Filt Rate > 60; Glucose 140 mg/dL (65-110); Magnesium 1.8 mg/dL (1.6-2.3); Potassium 3.8 mmol/L (3.4-5.0); Sodium 144 mmol/L (137-145); Total Protein 5.7 g/dL (6.3-8.2)
[2024-11-27] MEDS: LACTATED RINGERS 1,000 ML 125 ML IV CONT (06:18)
--- NOTE | 2024-11-27 08:53 | PM.PNGS ---
Progress Note: A&P Assessment and Plan (1) SBO (small bowel obstruction): Code(s): K56.609 - Unspecified intestinal obstruction, unspecified as to partial versus complete obstruction Status: Acute Assessment and Plan: imaging reviewed, exam benign, + bowel fxn, will clamp NG, if no issues will remove later today and start clears, encourage OOB Subjective Subjective Date/Time Seen: 11/27/24 08:53 Interval history: feels much better, abd pain resolved, multiple bowel movts Review of Systems Review of Systems: All systems reviewed & are unremarkable except as noted in HPI and below Exam Const: General: cooperative, comfortable, no acute distress and tired appearing Resp: Auscultation: clear to auscultation bilaterally Cardio: Rate: regular rate Rhythm: regular rhythm GI: Inspection: normal to inspection and non-distended GI Palp: No abdominal tenderness and Yes Soft to palpation Objective Data Vital Signs Vital Signs: Vital Signs - 24 hr 11/26/24 13:45 11/26/24 19:49 11/27/24 05:20 Temperature 36.7 C 36.7 C 36.7 C Pulse Rate 74 85 81 Respiratory Rate 18 17 17 Blood Pressure 147/70 H 145/70 H 145/74 H Pulse Oximetry 97 93 99 Intake/Output Intake/Output: Intake & Output 11/24/24 11/25/24 11/26/24 11/27/24 23:59 23:59 23:59 23:59 Intake Total 1500 3673.3 3606.8 1000 Output Total 975 2650 1000 Balance 1500 2698.3 956.8 0 Meds/Results Medications: Active Medications Generic Name Dose Route Start Last Admin Trade Name Freq PRN Reason Stop Dose Admin Acetaminophen 650 mg 11/26/24 13:57 Acetaminophen 650 Mg Suppository RECTAL Q6H PRN Mild Pain (1-3) or Fever Atorvastatin Calcium 40 mg 11/25/24 09:00 11/26/24 08:28 Atorvastatin 40 Mg Tablet PO 40 mg DAILY SILVANA Administration Dextrose 12.5 gm 11/24/24 18:26 Dextrose 50% 25 Gm/50 Ml Syringe IV PUSH PRN PRN Hypoglycemia Protocol Glucagon 1 mg 11/24/24 18:26 Glucagon For Inj 1 Mg Vial IM PRN PRN Hypoglycemia Protocol Glucose 15 gm 11/24/24 18:26 Glucose Oral Gel 15 Gm Of Glucse In 37.5 Gm Tube PO PRN PRN Hypoglycemia Protocol Lactated Ringer's 1,000 mls @ 125 mls/hr 11/24/24 17:20 11/27/24 06:18 Lr - Lactated Ringers Iv IV CONT 125 mls/hr .Q8H SILVANA Administration Dextrose 1,000 mls @ 100 mls/hr 11/24/24 18:26 Dextrose 5% 1,000 Ml IVPB PRN PRN Hypoglycemia Protocol Levetiracetam 1,000 mg in 100 mls @ 400 mls/hr 11/26/24 21:00 11/26/24 20:48 Keppra Iv IVPB Infused Q12HR SILVANA Infusion Insulin Aspart 4 - 8 units 11/25/24 16:30 11/27/24 06:30 Insulin Aspart (*Bkc) 100 Units/Ml SUB-Q Not Given ACHS SILVANA Protocol Lacosamide 100 mg 11/25/24 09:00 11/27/24 08:10 Lacosamide (*Crx) 100 Mg Tablet PO Not Given DAILY SILVANA Levetiracetam 1,000 mg 11/24/24 21:00 11/25/24 20:18 Levetiracetam 500 Mg Tablet PO 1,000 mg HS SILVANA Administration Levetiracetam 1,000 mg 11/25/24 09:00 11/26/24 08:28 Levetiracetam 500 Mg Tablet PO 1,000 mg QAM SILVANA Administration Morphine Sulfate 2 mg 11/24/24 18:28 11/26/24 13:41 Morphine Sulfate (*Crx) 2 Mg/Ml Inj IV PUSH 2 mg Q4H PRN Administration Pain Rated 7-10 Multivitamins/Calcium 1 tablet 11/25/24 09:00 11/27/24 08:10 Therapeutic Multivitamins/Minerals Tab (*Bkc) PO Not Given DAILY SILVANA Ondansetron HCl 4 mg 11/24/24 17:20 11/26/24 13:41 Ondansetron Inj 4 Mg/2 Ml Vial IV PUSH 4 mg Q4H PRN Administration Nausea Pantoprazole Sodium 40 mg 11/25/24 09:00 11/26/24 08:29 Pantoprazole Sodium Iv 40 Mg Vial IV PUSH 40 mg QAM SILVANA Administration Pregabalin 150 mg 11/25/24 09:00 11/27/24 08:09 Pregabalin (*Crx) 75 Mg Capsule PO Not Given QAM [facility] Pregabalin 300 mg 11/24/24 21:00 11/26/24 20:34 Pregabalin (*Crx) 75 Mg Capsule BY MOUTH Not Given HS SILVANA Zonisamide 200 mg 11/24/24 21:00 11/26/24 20:35 Zonisamide 100 Mg Capsule PO Not Given HS [facility] Radiology Results: ITS Impressions Abdomen/Pelvis CT 11/24/24 16:06 IMPRESSION: Mild splenomegaly. CT findings concerning for partial or early complete small bowel obstruction, candidate transition point at the terminal ileum. Mild mesenteric lymphadenopathy. Mild bladder wall thickening probably secondary to incomplete distention and/or chronic outlet obstruction from prostatomegaly. Small volume ascites. Small Bowel X-Ray 11/26/24 18:46 IMPRESSION: Findings consistent with high-grade small bowel obstruction. Would recommend repeat plain film evaluation of the abdomen and pelvis in the morning. Abdomen X-Ray 11/27/24 08:31 IMPRESSION: Improved appearance of small bowel dilatation with contrast now demonstrated within the rectum. Persistent mural thickening within the proximal jejunum dilated to 6.6 cm in maximal caliber. Labs Labs: Laboratory Results - last 24 hr 11/26/24 11/26/24 11/26/24 11:04 17:18 19:47 WBC RBC Hgb Hct MCV MCH MCHC RDW Plt Count MPV Immature Gran % (Auto) Neut % (Auto) Lymph % (Auto) [place] % (Auto) Eos % (Auto) Baso % (Auto) Lymph # (Auto) [place] # (Auto) Eos # (Auto) Baso # (Auto) Abs Immat Gran (auto) Absolute Neuts (auto) Absolute Nucleated RBC Nucleated RBC % % Immature Plt Fraction Sodium Potassium Chloride Carbon Dioxide Anion Gap BUN Creatinine Estim Creat Clear Calc Estimated GFR Glucose POC Capillary Glucose 191 H 153 H 156 H Calcium Magnesium Total Bilirubin AST ALT Alkaline Phosphatase Total Protein Albumin 11/27/24 11/27/24 11/27/24 04:51 06:26 07:30 WBC 4.2 L RBC 4.99 Hgb 14.0 Hct 44.2 MCV 88.6 MCH 28.1 MCHC 31.7 L RDW 14.2 Plt Count 78 L MPV 12.3 H Immature Gran % (Auto) 0.2 Neut % (Auto) 52.2 Lymph % (Auto) 30.8 [place] % (Auto) 13.3 H Eos % (Auto) 2.8 Baso % (Auto) 0.7 Lymph # (Auto) 1.30 [place] # (Auto) 0.6 Eos # (Auto) 0.1 Baso # (Auto) 0.0 Abs Immat Gran (auto) 0.01 Absolute Neuts (auto) 2.2 Absolute Nucleated RBC 0.000 Nucleated RBC % 0.0 % Immature Plt Fraction 6.8 Sodium 144 Potassium 3.8 Chloride 110 H Carbon Dioxide 25 Anion Gap 9 BUN 17 Creatinine 1.09 Estim Creat Clear Calc 61 Estimated GFR > 60 Glucose 140 H POC Capillary Glucose 148 H 145 H Calcium 8.4 Magnesium 1.8 Total Bilirubin 0.5 AST 21 ALT 13 Alkaline Phosphatase 61 Total Protein 5.7 L Albumin 3.2 L
[2024-11-27] MEDS: levETIRAcetam 1000MG/NACL100ML 1,000 MG/100 ML BAG 400 MG IVPB ×2 (09:10→20:42)
[2024-11-27] MEDS: PANTOPRAZOLE SODIUM IV 40 MG VIAL IV PUSH (09:18)
--- NOTE | 2024-11-27 10:30 | P.PNIM_ITS ---
Progress Note: A&P Assessment and Plan (1) SBO (small bowel obstruction): Code(s): K56.609 - Unspecified intestinal obstruction, unspecified as to partial versus complete obstruction Status: Acute Assessment and Plan: - CT abd/pelvis: Mild splenomegaly. CT findings concerning for partial or early complete small bowel obstruction, candidate transition point at the terminal ileum. Mild mesenteric lymphadenopathy. Mild bladder wall thickening probably secondary to incomplete distention and/or chronic outlet obstruction from prostatomegaly. Small volume ascites. Plan for SBS. - IV fluids: 1L bolus, now on 125 mL/hr Had BM overnight. Repeat xray 11/27/24 showed improving - had NGT tube. will clamp. will start clear liquid diet later today if he is tolerating - analgesics p.r.n. - Tylenol, [place], morphine - antiemetic p.r.n. - daily clinical reassessment for improvement -Surgery team on board . (2) DM2 (diabetes mellitus, type 2): Qualifiers: Diabetes mellitus snf insulin use: with snf use Diabetes mellitus complication status: without complication Qualified Code(s): E11.9 - Type 2 diabetes mellitus without complications; Z79.4 - skilled nursing (current) use of insulin Code(s): E11.9 - Type 2 diabetes mellitus without complications Status: Chronic Assessment and Plan: - hypoglycemia protocol - POC blood glucose q6h - currently NPO - home medication: SSi and acuuchecks - correct regimen ordered - high dose TIDWM, based off BMI - A1C 7.2% in 2022, update (3) Hypertension: Qualifiers: Hypertension type: primary hypertension Qualified Code(s): I10 - Essential (primary) hypertension Code(s): I10 - Essential (primary) hypertension Status: Chronic Assessment and Plan: - chronic, currently 146/81 - no current home medications - monitor Plan Diet: NPO GI Prophylaxis: Pantoprazole DVT Prophylaxis: SCDs IV fluids: 125 mL/hour Lines/Tubes: Peripheral IV Code Status: Full code Disposition - will discharge home once stable and cleared by surgery. Subjective Date/time seen: 11/27/24 10:30 Interval history: per HPI: 74 y/o M with PMH of diabetes, hyperlipidemia, seizure disorder, anemia, and hypertension presents here with abdominal pain, nausea, vomiting and diarrhea. The patient presents here from home on 11/24 for further evaluation of abdominal pain, nausea, vomiting, and diarrhea. He reports last night he began experiencing profuse watery diarrhea, estimates he had 12 bowel movements last night. Diarrhea was accompanied by abdominal pain that he described as cramping, midline (upper and lower), nonradiating, and constant. He denies accompanying fever or constipation. He does report some diaphoresis prior to bowel movements. He reports abdominal surgery history - appendectomy, cholecystectomy, umbilical hernia repair or GI history - bowel obstruction. Last colonoscopy was in 2023 - he reports one benign polyp. Initial VS at presentation: 97.8? F, HR 89, R 20, 121/82, and 98% on RA. ED workup showed: No leukocytosis, no anemia, creatinine 1.12 and GFR >60, glucose 249, and UA showed a high specific gravity/2+ were changed/trace ketones/3-[address] of the abdomen/pelvis showed mild splenomegaly, findings concerning for partial/early complete SBO, mild mesenteric lymphadenopathy, mild bladder wall thickening probably secondary to incomplete distension and or chronic outlet obstruction from prostatomegaly, and small volume ascites 11/26/24 Patient was seen and examined at bedside. She is still complaining of abdominal pain, nausea vomiting. He did not tolerate food last night. He had clear liquid diet this morning patient is still feeling nauseous. Last BM was 3 days ago. Complaining of abdominal bloating. Surgery team on board . Plan for SBS. NG tube placement if worsening. 11/27/24 Patient was seen an dexamined at bedside. he is feeling better after NGT placed yesterday. SBS concerning for SBO. repeat abd xray today: Improved appearance of small bowel dilatation with contrast now demonstrated within the rectum. Persistent mural thickening within the proximal jejunum dilated to 6.6 cm in maximal caliber. patient had BM today. discussed with surgery team. will clamp NGT and if patient tolerated will start clear liquid diet later today. Plty 78. patient has chronic low PLT. monitor for now Review of Systems Review of Systems: All systems reviewed & are unremarkable except as noted in HPI and below Exam Narrative: quiet bs in all quads but normoactive. Const: General: no acute distress Other: , male, elderly, nontoxic appearance, fatigued HENMT: Face/Nose/Sinus: Normal nares present Mouth: Yes moist mucous membranes Eyes: General: appearance normal, both eyes and all related structures Sclera: sclerae normal Pupils: Equal, round and reactive pupils present EOM: EOMs intact bilaterally Resp: Effort & Inspection: normal respiratory effort Auscultation: clear to auscultation bilaterally Cardio: Rate: regular rate Rhythm: regular rhythm Other: S1-S2 present without murmur, rub, ectopy GI: Other: Quite bowel sounds in all quadrants, normoactive. Tenderness in all quadrants. Nondistended, soft. Skin: General skin exam: normal color and no rashes or lesions noted Wounds: no wounds Neuro: Cranial nerves: Yes Equal, round and reactive pupils present Speech: normal speech Motor exam (neuro): 5/5 motor strength present throughout Sensory Exam: normal sensation Other: A&O x4 Extrem: General: normal to inspection Psych: Mental Status: mental status grossly normal Affect: normal affect Other: Good insight and judgment, pleasant Objective Data Vital Signs Vital Signs: Vital Signs - 24 hr 11/26/24 13:45 11/26/24 19:49 11/27/24 05:20 Temperature 98.1 F 98.1 F 98.1 F Pulse Rate 74 85 81 Respiratory Rate 18 17 17 Blood Pressure 147/70 H 145/70 H 145/74 H Pulse Oximetry 97 93 99 Intake/Output Intake/Output: Intake & Output 11/24/24 11/25/24 11/26/24 11/27/24 23:59 23:59 23:59 23:59 Intake Total 1500 3673.3 3606.8 1000 Output Total 975 2650 1000 Balance 1500 2698.3 956.8 0 Meds/Results Medications: Active Medications Generic Name Dose Route Start Last Admin Trade Name Freq PRN Reason Stop Dose Admin Acetaminophen 650 mg 11/26/24 13:57 Acetaminophen 650 Mg Suppository RECTAL Q6H PRN Mild Pain (1-3) or Fever Atorvastatin Calcium 40 mg 11/25/24 09:00 11/26/24 08:28 Atorvastatin 40 Mg Tablet PO 40 mg DAILY SILVANA Administration Dextrose 12.5 gm 11/24/24 18:26 Dextrose 50% 25 Gm/50 Ml Syringe IV PUSH PRN PRN Hypoglycemia Protocol Glucagon 1 mg 11/24/24 18:26 Glucagon For Inj 1 Mg Vial IM PRN PRN Hypoglycemia Protocol Glucose 15 gm 11/24/24 18:26 Glucose Oral Gel 15 Gm Of Glucse In 37.5 Gm Tube PO PRN PRN Hypoglycemia Protocol Lactated Ringer's 1,000 mls @ 125 mls/hr 11/24/24 17:20 11/27/24 06:18 Lr - Lactated Ringers Iv IV CONT 125 mls/hr .Q8H SILVANA Administration Dextrose 1,000 mls @ 100 mls/hr 11/24/24 18:26 Dextrose 5% 1,000 Ml IVPB PRN PRN Hypoglycemia Protocol Levetiracetam 1,000 mg in 100 mls @ 400 mls/hr 11/26/24 21:00 11/27/24 09:10 Keppra Iv IVPB 400 mls/hr Q12HR SILVANA Administration Insulin Aspart 4 - 8 units 11/25/24 16:30 11/27/24 06:30 Insulin Aspart (*Bkc) 100 Units/Ml SUB-Q Not Given ACHS SILVANA Protocol Lacosamide 100 mg 11/25/24 09:00 11/27/24 08:10 Lacosamide (*Crx) 100 Mg Tablet PO Not Given DAILY SILVANA Levetiracetam 1,000 mg 11/24/24 21:00 11/25/24 20:18 Levetiracetam 500 Mg Tablet PO 1,000 mg HS SILVANA Administration Levetiracetam 1,000 mg 11/25/24 09:00 11/26/24 08:28 Levetiracetam 500 Mg Tablet PO 1,000 mg QAM SILVANA Administration Morphine Sulfate 2 mg 11/24/24 18:28 11/26/24 13:41 Morphine Sulfate (*Crx) 2 Mg/Ml Inj IV PUSH 2 mg Q4H PRN Administration Pain Rated 7-10 Multivitamins/Calcium 1 tablet 11/25/24 09:00 11/27/24 08:10 Therapeutic Multivitamins/Minerals Tab (*Bkc) PO Not Given DAILY SILVANA Ondansetron HCl 4 mg 11/24/24 17:20 11/26/24 13:41 Ondansetron Inj 4 Mg/2 Ml Vial IV PUSH 4 mg Q4H PRN Administration Nausea Pantoprazole Sodium 40 mg 11/25/24 09:00 11/27/24 09:18 Pantoprazole Sodium Iv 40 Mg Vial IV PUSH 40 mg QAM SILVANA Administration Pregabalin 150 mg 11/25/24 09:00 11/27/24 08:09 Pregabalin (*Crx) 75 Mg Capsule PO Not Given QAM SILVANA Pregabalin 300 mg 11/24/24 21:00 11/26/24 20:34 Pregabalin (*Crx) 75 Mg Capsule BY MOUTH Not Given HS SILVANA Zonisamide 200 mg 11/24/24 21:00 11/26/24 20:35 Zonisamide 100 Mg Capsule PO Not Given HS SILVANA Radiology Results: ITS Impressions Abdomen/Pelvis CT 11/24/24 16:06 IMPRESSION: Mild splenomegaly. CT findings concerning for partial or early complete small bowel obstruction, candidate transition point at the terminal ileum. Mild mesenteric lymphadenopathy. Mild bladder wall thickening probably secondary to incomplete distention and/or chronic outlet obstruction from prostatomegaly. Small volume ascites. Small Bowel X-Ray 11/26/24 18:46 IMPRESSION: Findings consistent with high-grade small bowel obstruction. Would recommend repeat plain film evaluation of the abdomen and pelvis in the morning. Abdomen X-Ray 11/27/24 08:31 IMPRESSION: Improved appearance of small bowel dilatation with contrast now demonstrated within the rectum. Persistent mural thickening within the proximal jejunum dilated to 6.6 cm in maximal caliber. Labs Labs: Laboratory Results - last 24 hr 11/26/24 11/26/24 11/26/24 11:04 17:18 19:47 WBC RBC Hgb Hct MCV MCH MCHC RDW Plt Count MPV Immature Gran % (Auto) Neut % (Auto) Lymph % (Auto) [place] % (Auto) Eos % (Auto) Baso % (Auto) Lymph # (Auto) [place] # (Auto) Eos # (Auto) Baso # (Auto) Abs Immat Gran (auto) Absolute Neuts (auto) Absolute Nucleated RBC Nucleated RBC % % Immature Plt Fraction Sodium Potassium Chloride Carbon Dioxide Anion Gap BUN Creatinine Estim Creat Clear Calc Estimated GFR Glucose POC Capillary Glucose 191 H 153 H 156 H Calcium Magnesium Total Bilirubin AST ALT Alkaline Phosphatase Total Protein Albumin 11/27/24 11/27/24 11/27/24 04:51 06:26 07:30 WBC 4.2 L RBC 4.99 Hgb 14.0 Hct 44.2 MCV 88.6 MCH 28.1 MCHC 31.7 L RDW 14.2 Plt Count 78 L MPV 12.3 H Immature Gran % (Auto) 0.2 Neut % (Auto) 52.2 Lymph % (Auto) 30.8 [place] % (Auto) 13.3 H Eos % (Auto) 2.8 Baso % (Auto) 0.7 Lymph # (Auto) 1.30 [place] # (Auto) 0.6 Eos # (Auto) 0.1 Baso # (Auto) 0.0 Abs Immat Gran (auto) 0.01 Absolute Neuts (auto) 2.2 Absolute Nucleated RBC 0.000 Nucleated RBC % 0.0 % Immature Plt Fraction 6.8 Sodium 144 Potassium 3.8 Chloride 110 H Carbon Dioxide 25 Anion Gap 9 BUN 17 Creatinine 1.09 Estim Creat Clear Calc 61 Estimated GFR > 60 Glucose 140 H POC Capillary Glucose 148 H 145 H Calcium 8.4 Magnesium 1.8 Total Bilirubin 0.5 AST 21 ALT 13 Alkaline Phosphatase 61 Total Protein 5.7 L Albumin 3.2 L Quality VTE Prophylaxis VTE prophylaxis: mechanical ordered
[2024-11-27 14:00] VITALS: BP 165/69; PULSE 73; RESP 16; TEMP 36.2; O2SAT 100
[2024-11-27] MEDS: INSULIN ASPART (*BKC) 100 UNITS/ML SUB-Q (17:28)
[2024-11-27 19:44] VITALS: BP 178/83; PULSE 75; RESP 16; TEMP 36.7; O2SAT 97
[2024-11-27] MEDS: BELLADONNA ALK/PHENOB ELIX 10 ML, MAG HYDROX/ALUMINUM HYD/SIMETH 30 ML, LIDOCAINE 2% VI... PO (20:40)
[2024-11-27 20:42] VITALS: PULSE 76; RESP 20; O2SAT 96
[2024-11-27] MEDS: ZONISAMIDE 100 MG CAPSULE 200 MG PO (21:29)
[2024-11-27] MEDS: PREGABALIN (*CRX) 75 MG CAPSULE 300 MG BY MOUTH (21:29)
[2024-11-28 04:35] VITALS: BP 155/71; PULSE 71; RESP 16; TEMP 36.3; O2SAT 96
[2024-11-28 05:30] LABS: Hematocrit 44.2 % (42.0-52.0); Hemoglobin 14.2 g/dL (14.0-18.0); Immature Granulocyte Percent A 0.4 % (0-0.5); Immature Platelet Fraction Pct 7.0 % (0.9-11.2); Lymphocytes Absolute Auto 1.18 K/mm3 (0.9-3.2); Mean Corpuscular HGB Conc 32.1 g/dl (32-36); Mean Corpuscular Hemoglobin 27.9 pg (26-34); Mean Corpuscular Volume 86.8 fl (80-100); Nucleated Red Blood Cells Absolute Auto 0.000 K/mm3 (0.0-0.012); Nucleated Red Blood Cells Perc 0.0 % (0.0-0.2); Platelet Count Result 86 k/mm3 (150-375); Red Blood Count 5.09 M/mm3 (4.6-6.20); White Blood Count 4.9 K/mm3 (4.5-10.0)
[2024-11-28 05:40] LABS: Alanine Aminotransferase 14 U/L (6-50); Albumin Level 3.2 g/dL (3.5-5.1); Alkaline Phosphatase 63 U/L (38-126); Anion Gap 8 mmol/L (4-12); Aspartate Amino Transferase 23 U/L (17-59); Bilirubin,Total 0.5 mg/dL (0.2-1.3); Blood Urea Nitrogen 12 mg/dL (9-20); Calcium 8.3 mg/dL (8.4-10.2); Carbon Dioxide 24 mmol/L (22-30); Chloride 107 mmol/L (98-107); Estimated CRCL calculation 76 ml/min; Estimated Glomerular Filt Rate > 60; Glucose 184 mg/dL (65-110); Potassium 3.4 mmol/L (3.4-5.0); Sodium 139 mmol/L (137-145); Total Protein 5.8 g/dL (6.3-8.2)
[2024-11-28] MEDS: THERAPEUTIC MULTIVITAMINS/MINERALS TAB (*BKC) 1 TABLET PO (08:57)
[2024-11-28] MEDS: LACOSAMIDE (*CRX) 100 MG TABLET PO (08:58)
[2024-11-28] MEDS: PREGABALIN (*CRX) 75 MG CAPSULE 150 MG PO (08:58)
[2024-11-28] MEDS: PANTOPRAZOLE SODIUM IV 40 MG VIAL IV PUSH (08:58)
[2024-11-28] MEDS: levETIRAcetam 1000MG/NACL100ML 1,000 MG/100 ML BAG 400 MG IVPB ×2 (09:04→20:46)
--- NOTE | 2024-11-28 11:41 | WPDPN ---
Progress Note: A&P Assessment and Plan (1) SBO (small bowel obstruction): Code(s): K56.609 - Unspecified intestinal obstruction, unspecified as to partial versus complete obstruction Status: Acute Assessment and Plan: Partial small-bowel obstruction. Seems to be improving. He is starting to have some bowel movements but today is a little nauseated after having some clear liquids this morning. His potassium was 3.4 this morning. We will go ahead and supplement this with some oral potassium today. Encourage getting up out of bed as much as possible and walking the hallways. Continue supportive management and hopefully we can advance his diet tomorrow. Subjective Date/time seen: 11/28/24 11:41 Interval history: Patient seems to be doing pretty well today. Bowel function seems to have returned and he has had 4 bowel movements as documented by nursing. He was given clear liquids for breakfast and had some nausea after breakfast. No emesis however. He did have a small bowel movement this morning. Exam GI: Other: Abdomen is soft and mildly distended. Minimal diffuse tenderness. Objective Data Vital Signs Vital Signs: Vital Signs - 24 hr 11/27/24 14:00 11/27/24 19:44 11/27/24 20:00 Temperature 36.2 C L 36.7 C Pulse Rate 73 75 Respiratory Rate 16 16 Blood Pressure 165/69 H 178/83 H Pulse Oximetry 100 97 Oxygen Delivery Room Air Fraction of Inspired Oxygen 11/27/24 20:42 11/28/24 04:35 Temperature 36.3 C L Pulse Rate 76 71 Respiratory Rate 20 16 Blood Pressure 155/71 H Pulse Oximetry 96 96 Oxygen Delivery Room Air Fraction of Inspired Oxygen 21 Intake/Output Intake/Output: Intake & Output 11/25/24 11/26/24 11/27/24 11/28/24 23:59 23:59 23:59 23:59 Intake Total 3673.3 3606.8 2513 875 Output Total 975 2650 1000 Balance 2698.3 956.8 1513 875 Meds/Results Medications: Active Medications Generic Name Dose Route Start Last Admin Trade Name Freq PRN Reason Stop Dose Admin Acetaminophen 650 mg 11/26/24 13:57 Acetaminophen 650 Mg Suppository RECTAL Q6H PRN Mild Pain (1-3) or Fever Atorvastatin Calcium 40 mg 11/25/24 09:00 11/26/24 08:28 Atorvastatin 40 Mg Tablet PO 40 mg DAILY SILVANA Administration Dextrose 12.5 gm 11/24/24 18:26 Dextrose 50% 25 Gm/50 Ml Syringe IV PUSH PRN PRN Hypoglycemia Protocol Glucagon 1 mg 11/24/24 18:26 Glucagon For Inj 1 Mg Vial IM PRN PRN Hypoglycemia Protocol Glucose 15 gm 11/24/24 18:26 Glucose Oral Gel 15 Gm Of Glucse In 37.5 Gm Tube PO PRN PRN Hypoglycemia Protocol Dextrose 1,000 mls @ 100 mls/hr 11/24/24 18:26 Dextrose 5% 1,000 Ml IVPB PRN PRN Hypoglycemia Protocol Levetiracetam 1,000 mg in 100 mls @ 400 mls/hr 11/26/24 21:00 11/28/24 09:19 Keppra Iv IVPB Infused Q12HR SILVANA Infusion Insulin Aspart 4 - 8 units 11/25/24 16:30 11/28/24 08:56 Insulin Aspart (*Bkc) 100 Units/Ml SUB-Q Not Given ACHS SILVANA Protocol Lacosamide 100 mg 11/25/24 09:00 11/28/24 08:58 Lacosamide (*Crx) 100 Mg Tablet PO 100 mg DAILY SILVANA Administration Levetiracetam 1,000 mg 11/24/24 21:00 11/25/24 20:18 Levetiracetam 500 Mg Tablet PO 1,000 mg HS SILVANA Administration Levetiracetam 1,000 mg 11/25/24 09:00 11/26/24 08:28 Levetiracetam 500 Mg Tablet PO 1,000 mg QAM SILVANA Administration Morphine Sulfate 2 mg 11/24/24 18:28 11/26/24 13:41 Morphine Sulfate (*Crx) 2 Mg/Ml Inj IV PUSH 2 mg Q4H PRN Administration Pain Rated 7-10 Multivitamins/Calcium 1 tablet 11/25/24 09:00 11/28/24 08:57 Therapeutic Multivitamins/Minerals Tab (*Bkc) PO 1 tablet DAILY SILVANA Administration Ondansetron HCl 4 mg 11/24/24 17:20 11/26/24 13:41 Ondansetron Inj 4 Mg/2 Ml Vial IV PUSH 4 mg Q4H PRN Administration Nausea Pantoprazole Sodium 40 mg 11/25/24 09:00 11/28/24 08:58 Pantoprazole Sodium Iv 40 Mg Vial IV PUSH 40 mg QAM SILVANA Administration Pregabalin 150 mg 11/25/24 09:00 11/28/24 08:58 Pregabalin (*Crx) 75 Mg Capsule PO 150 mg QAM SILVANA Administration Pregabalin 300 mg 11/24/24 21:00 11/27/24 21:29 Pregabalin (*Crx) 75 Mg Capsule BY MOUTH 300 mg HS SILVANA Administration Zonisamide 200 mg 11/24/24 21:00 11/27/24 21:29 Zonisamide 100 Mg Capsule PO 200 mg HS SILVANA Administration Radiology Results: ITS Impressions Abdomen/Pelvis CT 11/24/24 16:06 IMPRESSION: Mild splenomegaly. CT findings concerning for partial or early complete small bowel obstruction, candidate transition point at the terminal ileum. Mild mesenteric lymphadenopathy. Mild bladder wall thickening probably secondary to incomplete distention and/or chronic outlet obstruction from prostatomegaly. Small volume ascites. Small Bowel X-Ray 11/26/24 18:46 IMPRESSION: Findings consistent with high-grade small bowel obstruction. Would recommend repeat plain film evaluation of the abdomen and pelvis in the morning. Abdomen X-Ray 11/27/24 08:31 IMPRESSION: Improved appearance of small bowel dilatation with contrast now demonstrated within the rectum. Persistent mural thickening within the proximal jejunum dilated to 6.6 cm in maximal caliber. Labs Labs: Laboratory Results - last 24 hr 11/27/24 11/27/24 11/28/24 16:03 19:40 05:08 WBC 4.9 RBC 5.09 Hgb 14.2 Hct 44.2 MCV 86.8 MCH 27.9 MCHC 32.1 RDW 13.7 Plt Count 86 L MPV 11.8 H Immature Gran % (Auto) 0.4 Neut % (Auto) 59.6 Lymph % (Auto) 24.1 [place] % (Auto) 12.0 H Eos % (Auto) 3.3 Baso % (Auto) 0.6 Lymph # (Auto) 1.18 [place] # (Auto) 0.6 Eos # (Auto) 0.2 Baso # (Auto) 0.0 Abs Immat Gran (auto) 0.02 Absolute Neuts (auto) 2.9 Absolute Nucleated RBC 0.000 Nucleated RBC % 0.0 % Immature Plt Fraction 7.0 Sodium 139 Potassium 3.4 Chloride 107 Carbon Dioxide 24 Anion Gap 8 BUN 12 D Creatinine 0.86 Estim Creat Clear Calc 76 Estimated GFR > 60 Glucose 184 H POC Capillary Glucose 218 H 185 H Calcium 8.3 L Total Bilirubin 0.5 AST 23 ALT 14 Alkaline Phosphatase 63 Total Protein 5.8 L Albumin 3.2 L 11/28/24 11/28/24 07:13 11:07 WBC RBC Hgb Hct MCV MCH MCHC RDW Plt Count MPV Immature Gran % (Auto) Neut % (Auto) Lymph % (Auto) [place] % (Auto) Eos % (Auto) Baso % (Auto) Lymph # (Auto) [place] # (Auto) Eos # (Auto) Baso # (Auto) Abs Immat Gran (auto) Absolute Neuts (auto) Absolute Nucleated RBC Nucleated RBC % % Immature Plt Fraction Sodium Potassium Chloride Carbon Dioxide Anion Gap BUN Creatinine Estim Creat Clear Calc Estimated GFR Glucose POC Capillary Glucose 163 H 203 H Calcium Total Bilirubin AST ALT Alkaline Phosphatase Total Protein Albumin
--- NOTE | 2024-11-28 11:47 | P.PNIM_ITS ---
Progress Note: A&P Assessment and Plan (1) SBO (small bowel obstruction): Code(s): K56.609 - Unspecified intestinal obstruction, unspecified as to partial versus complete obstruction Status: Acute Assessment and Plan: - CT abd/pelvis: Mild splenomegaly. CT findings concerning for partial or early complete small bowel obstruction, candidate transition point at the terminal ileum. Mild mesenteric lymphadenopathy. Mild bladder wall thickening probably secondary to incomplete distention and/or chronic outlet obstruction from prostatomegaly. Small volume ascites. Plan for SBS. - IV fluids: 1L bolus, now on 125 mL/hr Had BM overnigh - analgesics p.r.n. - Tylenol, [place], morphine - antiemetic p.r.n. - daily clinical reassessment for improvement -Surgery team following (2) DM2 (diabetes mellitus, type 2): Qualifiers: Diabetes mellitus mcfp insulin use: with mcfp use Diabetes mellitus complication status: without complication Qualified Code(s): E11.9 - Type 2 diabetes mellitus without complications; Z79.4 - prison (current) use of insulin Code(s): E11.9 - Type 2 diabetes mellitus without complications Status: Chronic Assessment and Plan: Corrective regimen ordered 11/28 FBS 184, so added basal Lantus 0.15 U/kg/day (3) Hypertension: Qualifiers: Hypertension type: primary hypertension Qualified Code(s): I10 - Essential (primary) hypertension Code(s): I10 - Essential (primary) hypertension Status: Chronic Assessment and Plan: Control adequate Subjective Date/time seen: 11/28/24 11:47 Interval history: Bloated. Still nauseated. Mild periumbilical cramps. 4 stools since last pm. No chest pain or sob. No swelling. Review of Systems Review of Systems: All systems reviewed & are unremarkable except as noted in HPI and below Exam Narrative: HEENT: PERRL, sclerae nonicteric, pharyngeal mucosa pink and intact NECK: No JVD, adenopathy, or thyromegaly CHEST: Clear to auscultation. Normal effort. HEART: NL S1/S2, regular, no murmur ABDOMEN: BS+, soft, nontender, no mass, no bruits EXTREMITIES: No cyanosis, edema, or clubbing NEUROLOGIC: CN intact and symmetric to inspection MUSCULOSKELETAL: Tone and strength symmetric PSYCH: Alert. Oriented to person, place, and time Objective Data Vital Signs Vital Signs: Vital Signs - 24 hr 11/27/24 14:00 11/27/24 19:44 11/27/24 20:00 Temperature 97.2 F L 98.1 F Pulse Rate 73 75 Respiratory Rate 16 16 Blood Pressure 165/69 H 178/83 H Pulse Oximetry 100 97 Oxygen Delivery Room Air Fraction of Inspired Oxygen 11/27/24 20:42 11/28/24 04:35 Temperature 97.3 F L Pulse Rate 76 71 Respiratory Rate 20 16 Blood Pressure 155/71 H Pulse Oximetry 96 96 Oxygen Delivery Room Air Fraction of Inspired Oxygen 21 Intake/Output Intake/Output: Intake & Output 11/25/24 11/26/24 11/27/24 11/28/24 23:59 23:59 23:59 23:59 Intake Total 3673.3 3606.8 2513 875 Output Total 975 2650 1000 Balance 2698.3 956.8 1513 875 Meds/Results Medications: Active Medications Generic Name Dose Route Start Last Admin Trade Name Freq PRN Reason Stop Dose Admin Acetaminophen 650 mg 11/26/24 13:57 Acetaminophen 650 Mg Suppository RECTAL Q6H PRN Mild Pain (1-3) or Fever Atorvastatin Calcium 40 mg 11/25/24 09:00 11/26/24 08:28 Atorvastatin 40 Mg Tablet PO 40 mg DAILY SILVANA Administration Dextrose 12.5 gm 11/24/24 18:26 Dextrose 50% 25 Gm/50 Ml Syringe IV PUSH PRN PRN Hypoglycemia Protocol Glucagon 1 mg 11/24/24 18:26 Glucagon For Inj 1 Mg Vial IM PRN PRN Hypoglycemia Protocol Glucose 15 gm 11/24/24 18:26 Glucose Oral Gel 15 Gm Of Glucse In 37.5 Gm Tube PO PRN PRN Hypoglycemia Protocol Dextrose 1,000 mls @ 100 mls/hr 11/24/24 18:26 Dextrose 5% 1,000 Ml IVPB PRN PRN Hypoglycemia Protocol Levetiracetam 1,000 mg in 100 mls @ 400 mls/hr 11/26/24 21:00 11/28/24 09:19 Keppra Iv IVPB Infused Q12HR SILVANA Infusion Insulin Aspart 4 - 8 units 11/25/24 16:30 11/28/24 08:56 Insulin Aspart (*Bkc) 100 Units/Ml SUB-Q Not Given ACHS [facility] Protocol Lacosamide 100 mg 11/25/24 09:00 11/28/24 08:58 Lacosamide (*Crx) 100 Mg Tablet PO 100 mg DAILY SILVANA Administration Levetiracetam 1,000 mg 11/24/24 21:00 11/25/24 20:18 Levetiracetam 500 Mg Tablet PO 1,000 mg HS SILVANA Administration Levetiracetam 1,000 mg 11/25/24 09:00 11/26/24 08:28 Levetiracetam 500 Mg Tablet PO 1,000 mg QAM SILVANA Administration Morphine Sulfate 2 mg 11/24/24 18:28 11/26/24 13:41 Morphine Sulfate (*Crx) 2 Mg/Ml Inj IV PUSH 2 mg Q4H PRN Administration Pain Rated 7-10 Multivitamins/Calcium 1 tablet 11/25/24 09:00 11/28/24 08:57 Therapeutic Multivitamins/Minerals Tab (*Bkc) PO 1 tablet DAILY SILVANA Administration Ondansetron HCl 4 mg 11/24/24 17:20 11/26/24 13:41 Ondansetron Inj 4 Mg/2 Ml Vial IV PUSH 4 mg Q4H PRN Administration Nausea Pantoprazole Sodium 40 mg 11/25/24 09:00 11/28/24 08:58 Pantoprazole Sodium Iv 40 Mg Vial IV PUSH 40 mg QAM SILVANA Administration Pregabalin 150 mg 11/25/24 09:00 11/28/24 08:58 Pregabalin (*Crx) 75 Mg Capsule PO 150 mg QAM SILVANA Administration Pregabalin 300 mg 11/24/24 21:00 11/27/24 21:29 Pregabalin (*Crx) 75 Mg Capsule BY MOUTH 300 mg HS SILVANA Administration Zonisamide 200 mg 11/24/24 21:00 11/27/24 21:29 Zonisamide 100 Mg Capsule PO 200 mg HS SILVANA Administration Radiology Results: ITS Impressions Abdomen/Pelvis CT 11/24/24 16:06 IMPRESSION: Mild splenomegaly. CT findings concerning for partial or early complete small bowel obstruction, candidate transition point at the terminal ileum. Mild mesenteric lymphadenopathy. Mild bladder wall thickening probably secondary to incomplete distention and/or chronic outlet obstruction from prostatomegaly. Small volume ascites. Small Bowel X-Ray 11/26/24 18:46 IMPRESSION: Findings consistent with high-grade small bowel obstruction. Would recommend repeat plain film evaluation of the abdomen and pelvis in the morning. Abdomen X-Ray 11/27/24 08:31 IMPRESSION: Improved appearance of small bowel dilatation with contrast now demonstrated within the rectum. Persistent mural thickening within the proximal jejunum dilated to 6.6 cm in maximal caliber. Labs Labs: Laboratory Results - last 24 hr 11/27/24 11/27/24 11/28/24 16:03 19:40 05:08 WBC 4.9 RBC 5.09 Hgb 14.2 Hct 44.2 MCV 86.8 MCH 27.9 MCHC 32.1 RDW 13.7 Plt Count 86 L MPV 11.8 H Immature Gran % (Auto) 0.4 Neut % (Auto) 59.6 Lymph % (Auto) 24.1 [place] % (Auto) 12.0 H Eos % (Auto) 3.3 Baso % (Auto) 0.6 Lymph # (Auto) 1.18 [place] # (Auto) 0.6 Eos # (Auto) 0.2 Baso # (Auto) 0.0 Abs Immat Gran (auto) 0.02 Absolute Neuts (auto) 2.9 Absolute Nucleated RBC 0.000 Nucleated RBC % 0.0 % Immature Plt Fraction 7.0 Sodium 139 Potassium 3.4 Chloride 107 Carbon Dioxide 24 Anion Gap 8 BUN 12 D Creatinine 0.86 Estim Creat Clear Calc 76 Estimated GFR > 60 Glucose 184 H POC Capillary Glucose 218 H 185 H Calcium 8.3 L Total Bilirubin 0.5 AST 23 ALT 14 Alkaline Phosphatase 63 Total Protein 5.8 L Albumin 3.2 L 11/28/24 11/28/24 07:13 11:07 WBC RBC Hgb Hct MCV MCH MCHC RDW Plt Count MPV Immature Gran % (Auto) Neut % (Auto) Lymph % (Auto) [place] % (Auto) Eos % (Auto) Baso % (Auto) Lymph # (Auto) [place] # (Auto) Eos # (Auto) Baso # (Auto) Abs Immat Gran (auto) Absolute Neuts (auto) Absolute Nucleated RBC Nucleated RBC % % Immature Plt Fraction Sodium Potassium Chloride Carbon Dioxide Anion Gap BUN Creatinine Estim Creat Clear Calc Estimated GFR Glucose POC Capillary Glucose 163 H 203 H Calcium Total Bilirubin AST ALT Alkaline Phosphatase Total Protein Albumin
[2024-11-28] MEDS: INSULIN ASPART (*BKC) 100 UNITS/ML SUB-Q (12:07)
[2024-11-28] MEDS: ONDANSETRON INJ 4 MG/2 ML VIAL IV PUSH ×3 (12:21→21:33)
[2024-11-28] MEDS: POTASSIUM CHLORIDE 20 MEQ ER TABLET 40 MEQ PO (12:21)
[2024-11-28 13:11] VITALS: BMI 31.6
[2024-11-28 14:00] VITALS: BP 162/73; PULSE 73; RESP 18; TEMP 36.6; O2SAT 96
[2024-11-28] MEDS: ZONISAMIDE 100 MG CAPSULE 200 MG PO (20:48)
[2024-11-28] MEDS: INSULIN GLARGINE (*BKC) 100 UNITS/ML 15 UNITS SUB-Q (20:49)
[2024-11-28] MEDS: PREGABALIN (*CRX) 75 MG CAPSULE 300 MG BY MOUTH (20:49)
[2024-11-28 20:57] VITALS: BP 156/74; PULSE 71; RESP 16; TEMP 36.6; O2SAT 98
[2024-11-28] MEDS: MORPHINE SULFATE (*CRX) 2 MG/ML INJ IV PUSH (21:36)
[2024-11-29] MEDS: ONDANSETRON INJ 4 MG/2 ML VIAL IV PUSH ×2 (02:54→08:57)
[2024-11-29 04:34] VITALS: BP 154/71; PULSE 73; RESP 16; TEMP 36.3; O2SAT 97
[2024-11-29 05:23] LABS: Hematocrit 45.4 % (42.0-52.0); Hemoglobin 14.7 g/dL (14.0-18.0); Immature Platelet Fraction Pct 7.3 % (0.9-11.2); Mean Corpuscular HGB Conc 32.4 g/dl (32-36); Mean Corpuscular Hemoglobin 28.1 pg (26-34); Mean Corpuscular Volume 86.8 fl (80-100); Platelet Count Result 86 k/mm3 (150-375); Red Blood Count 5.23 M/mm3 (4.6-6.20); White Blood Count 6.4 K/mm3 (4.5-10.0)
[2024-11-29 05:31] LABS: Anion Gap 7 mmol/L (4-12); Blood Urea Nitrogen 11 mg/dL (9-20); Calcium 8.4 mg/dL (8.4-10.2); Carbon Dioxide 25 mmol/L (22-30); Chloride 108 mmol/L (98-107); Estimated CRCL calculation 67 ml/min; Estimated Glomerular Filt Rate > 60; Glucose 138 mg/dL (65-110); Potassium 3.8 mmol/L (3.4-5.0); Sodium 140 mmol/L (137-145)
[2024-11-29] MEDS: LACOSAMIDE (*CRX) 100 MG TABLET PO (08:51)
[2024-11-29] MEDS: PANTOPRAZOLE SODIUM IV 40 MG VIAL IV PUSH (08:51)
[2024-11-29] MEDS: PREGABALIN (*CRX) 75 MG CAPSULE 150 MG PO (08:52)
[2024-11-29] MEDS: THERAPEUTIC MULTIVITAMINS/MINERALS TAB (*BKC) 1 TABLET PO (08:52)
[2024-11-29] MEDS: levETIRAcetam 1000MG/NACL100ML 1,000 MG/100 ML BAG 400 MG IVPB ×2 (10:57→20:11)
--- NOTE | 2024-11-29 12:01 | PM.IMPN ---
Progress Note: A&P Assessment and Plan (1) SBO (small bowel obstruction): Code(s): K56.609 - Unspecified intestinal obstruction, unspecified as to partial versus complete obstruction Status: Acute Assessment and Plan: - CT abd/pelvis: Mild splenomegaly. CT findings concerning for partial or early complete small bowel obstruction, candidate transition point at the terminal ileum. Mild mesenteric lymphadenopathy. Mild bladder wall thickening probably secondary to incomplete distention and/or chronic outlet obstruction from prostatomegaly. Small volume ascites. Plan for SBS. - IV fluids: 1L bolus, now on 125 mL/hr Had BM overnigh - analgesics p.r.n. - Tylenol, [place], morphine - antiemetic p.r.n. 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 Stools forming up. Still flatulence. No chest pain or shortness of breath or bleeding. No abdominal pain. Review of Systems Review of Systems: All systems reviewed & are unremarkable except as noted in HPI and below Exam Narrative: HEENT: PERRL, sclerae nonicteric, pharyngeal mucosa pink and intact NECK: No JVD, adenopathy, or thyromegaly CHEST: Clear to auscultation. Normal effort. HEART: NL S1/S2, regular, no murmur ABDOMEN: BS+, soft, nontender, no mass, no bruits EXTREMITIES: No cyanosis, edema, or clubbing NEUROLOGIC: CN intact and symmetric to inspection MUSCULOSKELETAL: Tone and strength symmetric PSYCH: Alert. Oriented to person, place, and time Objective Data Vital Signs Vital Signs: Vital Signs - 24 hr 11/28/24 14:00 11/28/24 20:00 11/28/24 20:57 Temperature 97.8 F 97.9 F Pulse Rate 73 71 Respiratory Rate 18 16 Blood Pressure 162/73 H 156/74 H Pulse Oximetry 96 98 Oxygen Delivery Room Air 11/29/24 04:34 11/29/24 08:00 Temperature 97.3 F L Pulse Rate 73 Respiratory Rate 16 Blood Pressure 154/71 H Pulse Oximetry 97 Oxygen Delivery Room Air Intake/Output Intake/Output: Intake & Output 11/26/24 11/27/24 11/28/24 11/29/24 23:59 23:59 23:59 23:59 Intake Total 3606.8 2513 2125 530 Output Total 2650 1000 350 Balance 956.8 1513 2125 180 Meds/Results Medications: Active Medications Generic Name Dose Route Start Last Admin Trade Name Freq PRN Reason Stop Dose Admin Acetaminophen 650 mg 11/26/24 13:57 Acetaminophen 650 Mg Suppository RECTAL Q6H PRN Mild Pain (1-3) or Fever Atorvastatin Calcium 40 mg 11/25/24 09:00 11/26/24 08:28 Atorvastatin 40 Mg Tablet PO 40 mg DAILY SILVANA Administration Dextrose 12.5 gm 11/24/24 18:26 Dextrose 50% 25 Gm/50 Ml Syringe IV PUSH PRN PRN Hypoglycemia Protocol Glucagon 1 mg 11/24/24 18:26 Glucagon For Inj 1 Mg Vial IM PRN PRN Hypoglycemia Protocol Glucose 15 gm 11/24/24 18:26 Glucose Oral Gel 15 Gm Of Glucse In 37.5 Gm Tube PO PRN PRN Hypoglycemia Protocol Dextrose 1,000 mls @ 100 mls/hr 11/24/24 18:26 Dextrose 5% 1,000 Ml IVPB PRN PRN Hypoglycemia Protocol Levetiracetam 1,000 mg in 100 mls @ 400 mls/hr 11/26/24 21:00 11/29/24 11:12 Keppra Iv IVPB Infused Q12HR [facility] Infusion Insulin Aspart 4 - 8 units 11/25/24 16:30 11/29/24 11:25 Insulin Aspart (*Bkc) 100 Units/Ml SUB-Q Not Given ACHS [facility] Protocol Insulin Glargine 15 units 11/28/24 21:00 11/28/24 20:49 Insulin Glargine (*Bkc) 100 Units/Ml 0.15 units/kg (15 units) 15 units SUB-Q Administration HS SILVANA Lacosamide 100 mg 11/25/24 09:00 11/29/24 08:51 Lacosamide (*Crx) 100 Mg Tablet PO 100 mg DAILY SILVANA Administration Levetiracetam 1,000 mg 11/24/24 21:00 11/25/24 20:18 Levetiracetam 500 Mg Tablet PO 1,000 mg HS SILVANA Administration Levetiracetam 1,000 mg 11/25/24 09:00 11/26/24 08:28 Levetiracetam 500 Mg Tablet PO 1,000 mg QAM [facility] Administration Morphine Sulfate 2 mg 11/24/24 18:28 11/28/24 21:36 Morphine Sulfate (*Crx) 2 Mg/Ml Inj IV PUSH 2 mg Q4H PRN Administration Pain Rated 7-10 Multivitamins/Calcium 1 tablet 11/25/24 09:00 11/29/24 08:52 Therapeutic Multivitamins/Minerals Tab (*Bkc) PO 1 tablet DAILY [facility]ILVANA Administration Ondansetron HCl 4 mg 11/24/24 17:20 11/29/24 08:57 Ondansetron Inj 4 Mg/2 Ml Vial IV PUSH 4 mg Q4H PRN Administration Nausea Ondansetron HCl 4 mg 11/28/24 11:52 11/28/24 12:21 Ondansetron Inj 4 Mg/2 Ml Vial IV PUSH 4 mg Q6H PRN Administration Nausea And Vomiting Pantoprazole Sodium 40 mg 11/25/24 09:00 11/29/24 08:51 Pantoprazole Sodium Iv 40 Mg Vial IV PUSH 40 mg QAM SILVANA Administration Pregabalin 150 mg 11/25/24 09:00 11/29/24 08:52 Pregabalin (*Crx) 75 Mg Capsule PO 150 mg QAM [facility]IL[facility]NA Administration Pregabalin 300 mg 11/24/24 21:00 11/28/24 20:49 Pregabalin (*Crx) 75 Mg Capsule BY MOUTH 300 mg HS S[facility]NA Administration Zonisamide 200 mg 11/24/24 21:00 11/28/24 20:48 Zonisamide 100 Mg Capsule PO 200 mg HS SILVANA Administration Radiology Results: ITS Impressions Abdomen/Pelvis CT 11/24/24 16:06 IMPRESSION: Mild splenomegaly. CT findings concerning for partial or early complete small bowel obstruction, candidate transition point at the terminal ileum. Mild mesenteric lymphadenopathy. Mild bladder wall thickening probably secondary to incomplete distention and/or chronic outlet obstruction from prostatomegaly. Small volume ascites. Small Bowel X-Ray 11/26/24 18:46 IMPRESSION: Findings consistent with high-grade small bowel obstruction. Would recommend repeat plain film evaluation of the abdomen and pelvis in the morning. Abdomen X-Ray 11/27/24 08:31 IMPRESSION: Improved appearance of small bowel dilatation with contrast now demonstrated within the rectum. Persistent mural thickening within the proximal jejunum dilated to 6.6 cm in maximal caliber. Labs Labs: Laboratory Results - last 24 hr 11/28/24 11/28/24 11/29/24 16:23 20:07 04:57 WBC 6.4 RBC 5.23 Hgb 14.7 Hct 45.4 MCV 86.8 MCH 28.1 MCHC 32.4 RDW 14.0 Plt Count 86 L MPV 11.9 H % Immature Plt Fraction 7.3 Sodium 140 Potassium 3.8 Chloride 108 H Carbon Dioxide 25 Anion Gap 7 BUN 11 Creatinine 0.98 Estim Creat Clear Calc 67 Estimated GFR > 60 Glucose 138 H POC Capillary Glucose 141 H 146 H Calcium 8.4 11/29/24 11/29/24 07:41 11:24 WBC RBC Hgb Hct MCV MCH MCHC RDW Plt Count MPV % Immature Plt Fraction Sodium Potassium Chloride Carbon Dioxide Anion Gap BUN Creatinine Estim Creat Clear Calc Estimated GFR Glucose POC Capillary Glucose 139 H 142 H Calcium
[2024-11-29 14:56] VITALS: BP 130/62; PULSE 71; RESP 16; TEMP 36.3; O2SAT 97
[2024-11-29] MEDS: LOSARTAN POTASSIUM 25 MG TABLET PO (17:01)
[2024-11-29 19:56] VITALS: BP 143/78; PULSE 71; RESP 16; TEMP 36.5; O2SAT 96
[2024-11-29] MEDS: PREGABALIN (*CRX) 75 MG CAPSULE 300 MG BY MOUTH (20:12)
[2024-11-29] MEDS: ZONISAMIDE 100 MG CAPSULE 200 MG PO (20:12)
[2024-11-29] MEDS: INSULIN GLARGINE (*BKC) 100 UNITS/ML 15 UNITS SUB-Q (20:14)
--- NOTE | 2024-11-29 21:21 | WPDPN ---
Progress Note: A&P Assessment and Plan (1) SBO (small bowel obstruction): Code(s): K56.609 - Unspecified intestinal obstruction, unspecified as to partial versus complete obstruction Status: Acute Assessment and Plan: Small-bowel obstruction continues to improve. He tolerated clear liquids this morning without any nausea or abdominal pain. Will go ahead advanced to full liquids today. If tolerating full liquids then can advanced to solid food tomorrow and hopefully can discharge home tomorrow. Subjective Date/time seen: 11/29/24 21:21 Interval history: Patient is doing better today. No nausea after breakfast. He tolerated clear liquids. Denies any abdominal pain. He had a small bowel movement this morning. Exam GI: Other: Abdomen is soft and minimal distention. No tenderness to palpation. Benign. Objective Data Vital Signs Vital Signs: Vital Signs - 24 hr 11/29/24 04:34 11/29/24 08:00 11/29/24 14:56 Temperature 36.3 C L 36.3 C L Pulse Rate 73 71 Respiratory Rate 16 16 Blood Pressure 154/71 H 130/62 Pulse Oximetry 97 97 Oxygen Delivery Room Air 11/29/24 19:56 Temperature 36.5 C Pulse Rate 71 Respiratory Rate 16 Blood Pressure 143/78 H Pulse Oximetry 96 Oxygen Delivery Intake/Output Intake/Output: Intake & Output 11/26/24 11/27/24 11/28/24 11/29/24 23:59 23:59 23:59 23:59 Intake Total 3606.8 2513 2125 1620 Output Total 2650 1000 350 Balance 956.8 1513 2125 1270 Meds/Results Medications: Active Medications Generic Name Dose Route Start Last Admin Trade Name Freq PRN Reason Stop Dose Admin Acetaminophen 650 mg 11/26/24 13:57 Acetaminophen 650 Mg Suppository RECTAL Q6H PRN Mild Pain (1-3) or Fever Atorvastatin Calcium 40 mg 11/25/24 09:00 11/26/24 08:28 Atorvastatin 40 Mg Tablet PO 40 mg DAILY SILVANA Administration Dextrose 12.5 gm 11/24/24 18:26 Dextrose 50% 25 Gm/50 Ml Syringe IV PUSH PRN PRN Hypoglycemia Protocol Glucagon 1 mg 11/24/24 18:26 Glucagon For Inj 1 Mg Vial IM PRN PRN Hypoglycemia Protocol Glucose 15 gm 11/24/24 18:26 Glucose Oral Gel 15 Gm Of Glucse In 37.5 Gm Tube PO PRN PRN Hypoglycemia Protocol Dextrose 1,000 mls @ 100 mls/hr 11/24/24 18:26 Dextrose 5% 1,000 Ml IVPB PRN PRN Hypoglycemia Protocol Levetiracetam 1,000 mg in 100 mls @ 400 mls/hr 11/26/24 21:00 11/29/24 20:11 Keppra Iv IVPB 400 mls/hr Q12HR [facility] Administration Insulin Aspart 4 - 8 units 11/25/24 16:30 11/29/24 20:15 Insulin Aspart (*Bkc) 100 Units/Ml SUB-Q Not Given ACHS [facility] Protocol Insulin Glargine 15 units 11/28/24 21:00 11/29/24 20:14 Insulin Glargine (*Bkc) 100 Units/Ml 0.15 units/kg (15 units) 15 units SUB-Q Administration HS SILVANA Lacosamide 100 mg 11/25/24 09:00 11/29/24 08:51 Lacosamide (*Crx) 100 Mg Tablet PO 100 mg DAILY SILVANA Administration Levetiracetam 1,000 mg 11/24/24 21:00 11/25/24 20:18 Levetiracetam 500 Mg Tablet PO 1,000 mg HS SILVANA Administration Levetiracetam 1,000 mg 11/25/24 09:00 11/26/24 08:28 Levetiracetam 500 Mg Tablet PO 1,000 mg QAM SILVANA Administration Losartan Potassium 25 mg 11/29/24 12:05 11/29/24 17:01 Losartan Potassium 25 Mg Tablet PO 25 mg DAILY SILVANA Administration Morphine Sulfate 2 mg 11/24/24 18:28 11/28/24 21:36 Morphine Sulfate (*Crx) 2 Mg/Ml Inj IV PUSH 2 mg Q4H PRN Administration Pain Rated 7-10 Multivitamins/Calcium 1 tablet 11/25/24 09:00 11/29/24 08:52 Therapeutic Multivitamins/Minerals Tab (*Bkc) PO 1 tablet DAILY SILVANA Administration Ondansetron HCl 4 mg 11/24/24 17:20 11/29/24 08:57 Ondansetron Inj 4 Mg/2 Ml Vial IV PUSH 4 mg Q4H PRN Administration Nausea Ondansetron HCl 4 mg 11/28/24 11:52 11/28/24 12:21 Ondansetron Inj 4 Mg/2 Ml Vial IV PUSH 4 mg Q6H PRN Administration Nausea And Vomiting Pantoprazole Sodium 40 mg 11/25/24 09:00 11/29/24 08:51 Pantoprazole Sodium Iv 40 Mg Vial IV PUSH 40 mg QAM SILVANA Administration Pregabalin 150 mg 11/25/24 09:00 11/29/24 08:52 Pregabalin (*Crx) 75 Mg Capsule PO 150 mg QAM SILVANA Administration Pregabalin 300 mg 11/24/24 21:00 11/29/24 20:12 Pregabalin (*Crx) 75 Mg Capsule BY MOUTH 300 mg HS SILVANA Administration Zonisamide 200 mg 11/24/24 21:00 11/29/24 20:12 Zonisamide 100 Mg Capsule PO 200 mg HS SILVANA Administration Radiology Results: ITS Impressions Abdomen/Pelvis CT 11/24/24 16:06 IMPRESSION: Mild splenomegaly. CT findings concerning for partial or early complete small bowel obstruction, candidate transition point at the terminal ileum. Mild mesenteric lymphadenopathy. Mild bladder wall thickening probably secondary to incomplete distention and/or chronic outlet obstruction from prostatomegaly. Small volume ascites. Small Bowel X-Ray 11/26/24 18:46 IMPRESSION: Findings consistent with high-grade small bowel obstruction. Would recommend repeat plain film evaluation of the abdomen and pelvis in the morning. Abdomen X-Ray 11/27/24 08:31 IMPRESSION: Improved appearance of small bowel dilatation with contrast now demonstrated within the rectum. Persistent mural thickening within the proximal jejunum dilated to 6.6 cm in maximal caliber. Labs Labs: Laboratory Results - last 24 hr 11/29/24 11/29/24 11/29/24 04:57 07:41 11:24 WBC 6.4 RBC 5.23 Hgb 14.7 Hct 45.4 MCV 86.8 MCH 28.1 MCHC 32.4 RDW 14.0 Plt Count 86 L MPV 11.9 H % Immature Plt Fraction 7.3 Sodium 140 Potassium 3.8 Chloride 108 H Carbon Dioxide 25 Anion Gap 7 BUN 11 Creatinine 0.98 Estim Creat Clear Calc 67 Estimated GFR > 60 Glucose 138 H POC Capillary Glucose 139 H 142 H Calcium 8.4 11/29/24 16:32 WBC RBC Hgb Hct MCV MCH MCHC RDW Plt Count MPV % Immature Plt Fraction Sodium Potassium Chloride Carbon Dioxide Anion Gap BUN Creatinine Estim Creat Clear Calc Estimated GFR Glucose POC Capillary Glucose 121 H Calcium
[2024-11-30 06:00] VITALS: BP 163/74; PULSE 75; RESP 16; TEMP 36.3; O2SAT 100
[2024-11-30] MEDS: LOSARTAN POTASSIUM 25 MG TABLET PO (08:51)
[2024-11-30] MEDS: PREGABALIN (*CRX) 75 MG CAPSULE 150 MG PO (08:51)
[2024-11-30] MEDS: PANTOPRAZOLE SODIUM IV 40 MG VIAL IV PUSH (08:51)
[2024-11-30] MEDS: THERAPEUTIC MULTIVITAMINS/MINERALS TAB (*BKC) 1 TABLET PO (08:51)
[2024-11-30] MEDS: levETIRAcetam 1000MG/NACL100ML 1,000 MG/100 ML BAG 400 MG IVPB (08:52)
--- NOTE | 2024-11-30 09:06 | P.DS_ITS ---
DS: Admitting Diagnosis Discharge Date 11/30/2024 Admitting Diagnosis Partial small-bowel obstruction DS: Discharge Diagnosis Discharge Diagnosis (1) SBO (small bowel obstruction): Code(s): K56.609 - Unspecified intestinal obstruction, unspecified as to partial versus complete obstruction Status: Acute Assessment and Plan: - CT abd/pelvis: Mild splenomegaly. CT findings concerning for partial or early complete small bowel obstruction, candidate transition point at the terminal ileum. Mild mesenteric lymphadenopathy. Mild bladder wall thickening probably secondary to incomplete distention and/or chronic outlet obstruction from prostatomegaly. Small volume ascites. Plan for SBS. - IV fluids: 1L bolus, now on 125 mL/hr Had BM overnigh - analgesics p.r.n. - Tylenol, [place], morphine - antiemetic p.r.n. - daily clinical reassessment for improvement -Surgery team following * 11/29 Surgical team advanced * 11/30 Tolerating diet, up and about independently, pain free, bowels moved, home (2) DM2 (diabetes mellitus, type 2): Qualifiers: Diabetes mellitus press leader insulin use: with press leader use Diabetes mellitus complication status: without complication Qualified Code(s): E11.9 - Type 2 diabetes mellitus without complications; Z79.4 - atmospheric drier tender (current) use of insulin Code(s): E11.9 - Type 2 diabetes mellitus without complications Status: Chronic Assessment and Plan: Corrective regimen ordered 11/28 FBS 184, so added basal Lantus 0.15 U/kg/day 11/29 FBS 138 11/30 FBS 151 (3) Hypertension: Qualifiers: Hypertension type: primary hypertension Qualified Code(s): I10 - Essential (primary) hypertension Code(s): I10 - Essential (primary) hypertension Status: Chronic Assessment and Plan: 11/29 blood pressure systolic 140s to 160 since admission so added low-dose losartan 25 mg daily 11/30 BP 163/74, continue losartan and f/u with PCP DS: Summary Hospital Course Hospital Course: Admitted with abdominal pain and nausea. Imaging consistent with partial small- bowel obstruction. Treated conservatively with bowel rest analgesics antiemetics IV fluids. Surgical service consulted. With conservative management bowels began to move and pain resolved. Tolerated clear liquids and advanced to full liquids which were tolerated well. By day of discharge she was tolerating regular food up and about independently pain-free with bowels moving. Had 1 loose bowel movement on the morning of discharge. Time Spent with Patient Time attestation: Total time spent providing and/or coordinating discharge services: Exam Narrative: HEENT: PERRL, sclerae nonicteric, pharyngeal mucosa pink and intact NECK: No JVD, adenopathy, or thyromegaly CHEST: Clear to auscultation. Normal effort. HEART: NL S1/S2, regular, no murmur ABDOMEN: BS+, soft, nontender, no mass, no bruits EXTREMITIES: No cyanosis, edema, or clubbing NEUROLOGIC: CN intact and symmetric to inspection MUSCULOSKELETAL: Tone and strength symmetric PSYCH: Alert. Oriented to person, place, and time DS: Data Data Completed and Pending Labs on day of discharge: Labs from last 24 hours 11/30/24 11/29/24 11/29/24 08:23 19:54 16:32 POC Capillary Glucose 151 H 141 H 121 H 11/29/24 11:24 POC Capillary Glucose 142 H Discharge Plan Discharge Consulting providers: Tamica Garcia Discharging Clinician: Devonte Patton Patient Disposition: Home Activity: as tolerated Diet: diabetic and low sodium Discharge Instructions: Do not take Novolog if blood sugar is under 100. Call MD if blood sugar is over 300. Patient Language: German Stand Alone Forms: General Discharge Information Follow-up/Referrals: Redd De Anda MD [Primary Care Provider] - 1 Week Discharge Medications: Continued pregabalin 150 mg capsule 150 mg PO QAM zonisamide 100 mg capsule 200 mg PO HS Rx Instructions: Take two capsules at bedtime lacosamide 100 mg tablet 100 mg PO DAILY levetiracetam [Keppra] 500 mg Tablet 1,000 mg PO QAM Qty: 30 0RF pregabalin [Lyrica] 50 mg Capsule 300 mg BYMOUTH HS Qty: 15 0RF levetiracetam [Keppra] 500 mg Tablet 1,000 mg PO HS atorvastatin 40 mg tablet 40 mg PO DAILY pantoprazole 40 mg tablet,delayed release (DR/EC) 40 mg PO DAILY multivit with min-folic acid 0.4 mg Tablet 1 tablet PO DAILY Changed insulin glargine [Lantus Solostar U-100 Insulin] 100 unit/mL (3 mL) insulin pen 25 unit SUBCUT DAILY Qty: 10 0RF insulin aspart U-100 [Novolog FlexPen U-100 Insulin] 100 unit/mL (3 mL) insulin pen 5 unit SUBCUT TIDWMEAL Qty: 10 0RF Date of admission: 11/24/24 17:20 Primary Care Provider: Redd De Anda Admitting Provider: Amber Masterson Attending physician on admission: Joe Redding Condition: Stable
--- NOTE | 2024-11-30 12:11 | P.PN_ITS ---
Progress Note: A&P Assessment and Plan (1) SBO (small bowel obstruction): Code(s): K56.609 - Unspecified intestinal obstruction, unspecified as to partial versus complete obstruction Status: Acute Assessment and Plan: Resolved with non operative management. He can be discharged today and have a regular diet at home. He will follow his primary care physician as needed. No need to follow-up with surgery after discharge. Subjective Date/time seen: 11/30/24 12:11 Interval history: Patient is doing well this morning. No complaints of pain or nausea. Tolerated full liquids yesterday. Was ordered a solid food diet for breakfast and lunch but he still only full liquids for some unknown reason. Any case he is doing very well and no evidence of bowel obstruction. He had a large bowel movement this morning. Exam GI: Other: Abdomen is soft and nondistended. Nontender. Exam is benign. Objective Data Vital Signs Vital Signs: Vital Signs - 24 hr 11/29/24 14:56 11/29/24 19:56 11/29/24 20:00 Temperature 36.3 C L 36.5 C Pulse Rate 71 71 Respiratory Rate 16 16 Blood Pressure 130/62 143/78 H Pulse Oximetry 97 96 Oxygen Delivery Room Air 11/30/24 06:00 Temperature 36.3 C L Pulse Rate 75 Respiratory Rate 16 Blood Pressure 163/74 H Pulse Oximetry 100 Oxygen Delivery Intake/Output Intake/Output: Intake & Output 11/27/24 11/28/24 11/29/24 11/30/24 23:59 23:59 23:59 23:59 Intake Total 2513 2125 1720 740 Output Total 1000 350 Balance 1513 2125 1370 740 Meds/Results Medications: Active Medications Generic Name Dose Route Start Last Admin Trade Name Freq PRN Reason Stop Dose Admin Acetaminophen 650 mg 11/26/24 13:57 Acetaminophen 650 Mg Suppository RECTAL Q6H PRN Mild Pain (1-3) or Fever Atorvastatin Calcium 40 mg 11/25/24 09:00 11/26/24 08:28 Atorvastatin 40 Mg Tablet PO 40 mg DAILY SILVANA Administration Dextrose 12.5 gm 11/24/24 18:26 Dextrose 50% 25 Gm/50 Ml Syringe IV PUSH PRN PRN Hypoglycemia Protocol Glucagon 1 mg 11/24/24 18:26 Glucagon For Inj 1 Mg Vial IM PRN PRN Hypoglycemia Protocol Glucose 15 gm 11/24/24 18:26 Glucose Oral Gel 15 Gm Of Glucse In 37.5 Gm Tube PO PRN PRN Hypoglycemia Protocol Dextrose 1,000 mls @ 100 mls/hr 11/24/24 18:26 Dextrose 5% 1,000 Ml IVPB PRN PRN Hypoglycemia Protocol Levetiracetam 1,000 mg in 100 mls @ 400 mls/hr 11/26/24 21:00 11/30/24 08:52 Keppra Iv IVPB 400 mls/hr Q12HR SILVANA Administration Insulin Aspart 4 - 8 units 11/25/24 16:30 11/30/24 08:26 Insulin Aspart (*Bkc) 100 Units/Ml SUB-Q Not Given ACHS SILVANA Protocol Insulin Glargine 15 units 11/28/24 21:00 11/29/24 20:14 Insulin Glargine (*Bkc) 100 Units/Ml 0.15 units/kg (15 units) 15 units SUB-Q Administration HS SILVANA Lacosamide 100 mg 11/25/24 09:00 11/29/24 08:51 Lacosamide (*Crx) 100 Mg Tablet PO 100 mg DAILY SILVANA Administration Levetiracetam 1,000 mg 11/24/24 21:00 11/25/24 20:18 Levetiracetam 500 Mg Tablet PO 1,000 mg HS SILVANA Administration Levetiracetam 1,000 mg 11/25/24 09:00 11/26/24 08:28 Levetiracetam 500 Mg Tablet PO 1,000 mg QAM SILVANA Administration Losartan Potassium 25 mg 11/29/24 12:05 11/30/24 08:51 Losartan Potassium 25 Mg Tablet PO 25 mg DAILY SILVANA Administration Morphine Sulfate 2 mg 11/24/24 18:28 11/28/24 21:36 Morphine Sulfate (*Crx) 2 Mg/Ml Inj IV PUSH 2 mg Q4H PRN Administration Pain Rated 7-10 Multivitamins/Calcium 1 tablet 11/25/24 09:00 11/30/24 08:51 Therapeutic Multivitamins/Minerals Tab (*Bkc) PO 1 tablet DAILY SILVANA Administration Ondansetron HCl 4 mg 11/24/24 17:20 11/29/24 08:57 Ondansetron Inj 4 Mg/2 Ml Vial IV PUSH 4 mg Q4H PRN Administration Nausea Ondansetron HCl 4 mg 11/28/24 11:52 11/28/24 12:21 Ondansetron Inj 4 Mg/2 Ml Vial IV PUSH 4 mg Q6H PRN Administration Nausea And Vomiting Pantoprazole Sodium 40 mg 11/25/24 09:00 11/30/24 08:51 Pantoprazole Sodium Iv 40 Mg Vial IV PUSH 40 mg QAM SILVANA Administration Pregabalin 150 mg 11/25/24 09:00 11/30/24 08:51 Pregabalin (*Crx) 75 Mg Capsule PO 150 mg QAM SILVANA Administration Pregabalin 300 mg 11/24/24 21:00 11/29/24 20:12 Pregabalin (*Crx) 75 Mg Capsule BY MOUTH 300 mg HS SILVANA Administration Zonisamide 200 mg 11/24/24 21:00 11/29/24 20:12 Zonisamide 100 Mg Capsule PO 200 mg HS SILVANA Administration Radiology Results: ITS Impressions Abdomen/Pelvis CT 11/24/24 16:06 IMPRESSION: Mild splenomegaly. CT findings concerning for partial or early complete small bowel obstruction, candidate transition point at the terminal ileum. Mild mesenteric lymphadenopathy. Mild bladder wall thickening probably secondary to incomplete distention and/or chronic outlet obstruction from prostatomegaly. Small volume ascites. Small Bowel X-Ray 11/26/24 18:46 IMPRESSION: Findings consistent with high-grade small bowel obstruction. Would recommend repeat plain film evaluation of the abdomen and pelvis in the morning. Abdomen X-Ray 11/27/24 08:31 IMPRESSION: Improved appearance of small bowel dilatation with contrast now demonstrated wit hin the rectum. Persistent mural thickening within the proximal jejunum dilated to 6.6 cm in maximal caliber. Labs Labs: Laboratory Results - last 24 hr 11/29/24 11/29/24 11/30/24 16:32 19:54 08:23 POC Capillary Glucose 121 H 141 H 151 H
== END 2024-11-30 13:17 | disposition home or self-care (01) | DRG 390 ==
LOC: ANHED 15:05 → ANH2MED 17:58
PROVIDERS: Family Medicine; Internal Medicine; Nurse Practitioner Family; Student in an Organized Health Care Education/Training Program; Admitting Provider Internal Medicine; Emergency Provider Student in an Organized Health Care Education/Training Program; PCP Internal Medicine; Visit Provider Internal Medicine
DX: K56.600 Partial intestinal obstruction, unspecified as to cause (principal); E11.42 Type 2 diabetes mellitus with diabetic polyneuropathy; I10 Essential (primary) hypertension; E78.5 Hyperlipidemia, unspecified; D64.9 Anemia, unspecified; G40.909 Epilepsy, unspecified, not intractable, without status epilepticus; Z96.653 Presence of artificial knee joint, bilateral; Z90.49 Acquired absence of other specified parts of digestive tract; Z79.4 Long term (current) use of insulin
CPT/HCPCS: 36415; 74018; 74019; 74177; 74250; 80048; 80053; 81001; 82948; 83036; 83690; 83735; 85025; 85027; 85055; 96374; 96375; 96376; 99285; A9270; J1815; J1953; J2270; J2405; J2470; J7120; Q9967

== ENCOUNTER 2025-01-21 10:29 | Inpatient (IN) | payer MEDICARE, SELFPAY ==
--- OUTSIDE RECORDS SUMMARY | 2024-12-25 09:00 | XMS_ITS | Encounter Summary ---
Author Name [facility] [place] Organization [facility] [place] Address [address] [place] [address] Care Team Providers Care Greeting Card Writer Name Role Phone ELIZABETH ESTEBAN Primary Care [...] Name Patient's Relationship to Policy Graves [employer] [facility] (WNR) MEDICARE ADVANTAGE [facility] (WNR) Mar 28, 2022 [id number] [place] PATIENT MEDICARE (WNR) MEDICARE (M) PART B Jan 26, 2015 PART B [id number] [place] PATIENT [place]ICARE (WNR) MEDICARE (M) PART A Jan 26, 2015 PART A [id number] [place] PATIENT Selected Encounter This section includes the information on record at [place] for the Encounter. Date/Time Encounter Type Encounter Description Reason Provider Source Dec 25, 2024 02:00 PM OFFICE O/P EST MOD 30 MIN OPTOMETRY ICD-10-CM H40.053 Ocular hypertension, bilateral SCHAFERS,ALLIS ON E IHE Encounter Template Text not used by [facility] Assessments - Encounter Diagnoses This section includes the primary and secondary diagnoses documented for the Encounter. Date/Time Primary/Secondary Diagnosis Diagnosis Name Provider Source Dec 25, 2024 06:16 PM PRIMARY Ocular hypertension, bilateral LESLIE DYSON [facility] Dec 25, 2024 06:16 PM SECONDARY Combined forms of age-related cataract, left eye LESLIE DYSON [facility] Dec 25, 2024 06:16 PM SECONDARY Dry eye syndrome of bilateral lacrimal glands LESLIE DYSON [facility] Dec 25, 2024 06:16 PM SECONDARY Other corneal scars and opacities LESLIE DYSON [facility] Dec 25, 2024 06:16 PM SECONDARY Other retinal detachments LESLIE DYSON [facility] Dec 25, 2024 06:16 PM SECONDARY Presbyopia LESLIE DYSON [facility] Dec 25, 2024 06:16 PM SECONDARY Presence of intraocular lens LESLIE DYSON [facility] Dec 25, 2024 06:16 PM SECONDARY 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 This section includes future appointments and future orders which are active, pending or scheduled. Future Appointments This section includes appointments that were scheduled to occur 6 months from the date of the Encounter, up to a maximum of 20 appointments. The data comes from all [place] treatment facilities. Appointment Date/Time Appointment Type Appointme nt Facility Name Jun 23, 2025 03:00 PM AMBULATORY - SURGERY [facility] Social History: Smoking Status (Most current) and Tobacco Use (All prior to encounter date) This section includes the most current, and the historical, smoking and tobacco- related health factors from the [place] facility where the Encounter took place. Current Smoking Status This section includes the most current smoking, or tobacco-related health factor, from the [place] facility where the Encounter took place. Date/Time Current Smoking Status Comment Hussain aaron Aug 11, 2024 01:00 PM VA-TOBACCO NEVER U SED CIGARETTES [facility] Tobacco Use History This section includes a history of the smoking, or tobacco-related health factors, that were collected on or before the date of the Encounter. The data comes from the [place] facility where the Encounter took place. Date/Time Smoking Status/Tobacco Use Comment F acility Aug 11, 2024 01:00 PM VA-TOBACCO USE FOR HORACIO OTHER TYPE smoked a pipe- quit in 1979 [facility] Jul 23, 2023 01:00 PM VA-TOBACCO FORMER USER [facility] Jul 23, 2023 01:00 PM VA-TOBACCO QUIT 15 YRS OR MORE [facility] Jul 31, 2022 11:30 AM VA-TOBACCO FORMER USER [facility] Jul 31, 2022 11:30 AM VA-TOBACCO QUIT 15 YRS OR MORE [facility] Aug 05, 2021 11:30 AM VA-TOBACCO FORMER USER [facility] Aug 05, 2021 11:30 AM VA-TOBACCO QUIT 15 YRS OR MORE [facility] Jul 28, 2020 01:00 PM VA-TOBACCO FORMER USER [facility] Jul 28, 2020 01:00 PM VA-TOBACCO QUIT 15 YRS OR MORE [facility] Jul 29, 2019 10:00 AM VA-TOBACCO FORMER USER [facility] Jul 29, 2019 10:00 AM VA-TOBACCO QUIT 15 YRS OR MORE [facility] Aug 01, 2018 10:02 AM VA-TOBACCO FORMER USER [facility] Aug 01, 2018 10:02 AM VA-TOBACCO QUIT 15 YRS OR MORE [facility] Advance Directives: All historical and current Section Date Range: From patient's date of to the date document was created. This section includes ALL of a patient's completed or amended [place] Advance and Rescinded Directives. The entries below indicate that a directive exists for the patient, but an actual copy is not included with this document. The data comes from all [place] facilities. Date Advance Directives Provider Source Aug 22, 2024 ADVANCE DIRECTIVE [facility] Encounter Notes: All associated encounter notes This section contains the clinical notes associated to the Encounter. Date/Time Encounter Note(s) Provider Source Dec 25, 2024 06:13 PM OPTOMETRY CONSULT: LOCAL TITLE: OPTOMETRY CONSULT STL STANDARD TITLE: OPTOMETRY CONSULT DATE OF NOTE: DEC 25, 2024@18:13 ENTRY DATE: DEC 25, 2024@18:13:50 AUTHOR: DHARA DYSON COSIGNER: MARIANO JOHNSON URGENCY: STATUS: COMPLETED OPTOMETRY CONSULT STL Has ADDENDA OCT RNFL 12/25/24 14:00 INDICATION: OHT OD: avg RNFL 81 um, no RNFL thinning, stable to previous OS: avg RNFL 76 um, no RNFL thinning, stable to previous PLAN: monitor OCT MAC INDICATION: OHT OD: unreliable scan secondary to previous retinal scarring OS: normal GCC w/o thinning PLAN: monitor /fátima/ Dhara Dyson OD RESIDENT SUPERVISOR [employer]SEMBLY ROOM Signed: 12/25/2024 18:17 /fátima/ MARIANO JOHNSON OD Staff Physician, Optometry Cosigned: 12/26/2024 16:04 12/26/2024 ADDENDUM STATUS: COMPLETED I have reviewed the findings and agree with the assessment as charted in CPRS on this established patient. /luzma JOHNSON OD Staff Physician, Optometry Signed: 12/26/2024 16:04 DHARA DYSON [facility] Dec 25, 2024 01:41 PM OPTOMETRY NOTE: LOCAL TITLE: OPTOMETRY NOTE STANDARD TITLE: OPTOMETRY NOTE DATE OF NOTE: DEC 25, 2024@13:41 ENTRY DATE: DEC 25, 2024@13:41:26 AUTHOR: DHARA DYSON EXP COSIGNER: MARIANO JOHNSON URGENCY: STATUS: COMPLETED OPTOMETRY NOTE Has ADDENDA MARYSOL: 08/29/2024 REASON FOR TODAY'S VISIT: DFE, IOP check, gonio, pachs, RNFL/MAGOCT 12/25/24 14:00 CC/HPI: 1. OHT follow-up after starting new medication - been compliant w/ drop except when in hospital for 6 days earlier this month - no irritation from the drop 2. vision stable, happy w/ hab rx 3. Type 2 DM w/ mild NPDR OS - last A1C ~7% in July - controlled w/ insulin - Last BG 162 this am - pt feels he has pretty good control, sees PCP every 3 months Ocular meds: Simbrinza BID OU LD: this am OTC ATs PRN Ocular ROS: 1. Mild NPDR OS, No retinopathy OD 2. OHTN OD 3. Ocular Trauma OD 4. Dry Eye OU 5. Cataract OS 6. Pseudophakia OD 7. Refractive Error/Presbyopia OU Family OcHX: (-) blindness (-) glaucoma (-) AMD (-) RD Cardiovascular ROS: no change from problem & medication lists CPRS Problem list, medications and allergies reviewed: CPRS Serology for Diabetes No GLUCOSE EO data found No HEMOGLOBIN A1C EO data found Cardiovascular BP: 142/71 (08/11/2024 13:32) Pulse: 86 (08/11/2024 13:11) Neuro: Orientation: Normal Psych: Mood/Affect: Normal Depression/suicide ideation: NO ALLERGIES: CODEINE, JARDIANCE - VISUAL ACUITY - DVA WITH correction: OD: 20/250 PHNI OS: 20/20 Pupils: PERRL OU (-)APD Confrontation: FTFC OU Extra-Ocular Muscles: Full OU Externals/Adnexa: Unremarkable OU PREVIOUS REFRACTION: 02/29/24 OD: +2.25 - 4.50 x 025 20/400+ NI with large ranges OS: plano -0.75 x100 20/20- ADD: +2.50 SLIT LAMP EXAMINATION (OU): Lid/Lsh: Clear Scl/Cnj: White and quiet Cornea: OD: full thickness linear scar from inf temp limbus extending near LOS, dense endo pigment assoc w/ K scar, tr SPK OS: tr SPK Angles: difficult to assess temp but appears 4/4 by Van Herick OD, 4 by Van Herick OS A/C: Deep and Quiet Iris: OD: Dyscoria w/ disruption of iris temp OS: INTRAOCULAR PRESSURE (Goldmann): 1 gtt NaFl DATE OD OS TIME MEDS 11/10/20 26 20 1525 none 05/12/21 24 20 1406 xal QHS Refuse Collector 09/01/21 20 19 1308 Timolol QAM Refuse Collector 02/03/22 17 19 1154 Timolol QPH 08/07/22 18 17 1400 Timolol QPH 05/08/23 21 18 1552 timolol qPM OD 02/29/24 23 19 1415 Timolol qAM OD 08/29/24 23 21 1440 Timolol qam OD 12/25/24 22 19 14:17 Simbrinza BID OU DILATION: Instilled 1 gtt phenylephrine 2.5%, 1 gtt tropicamide 1% OU @ TIME Pt understands the side effects associated with dilation DILATED FUNDUS EXAMINATION (OU): Lens: PCIOL centered and clear OD, 2+ NS w/ central vacuoles OS C/D: 0.45 OD 0.5 OS ONH: distinct margins, no pallor, (-) NVD Vessels: normal for age Macula: central atrophy w/ surrounding pigment mottling OD flat and intact w/ a few inf trey dot hemes OS, (-) CSME Pos-Jayro: a few scattered dot hemes OS, (-) exudates, CWS, NVE OU Prphry: OD: flat and intact, extensive scarring temporal extending into post pole OS: flat and intact 360 Vitres: syneresis ADDITIONAL TESTING: Gonioscopy Indication: OHT OD: OS: CB CB CB, fibrosis CB CB CB CB CB TM Pigment 1+ TM Pigment 1+ OCT RNFL 12/25/24 14:00 INDICATION: OHT OD: avg RNFL 81 um, no RNFL thinning, stable to previous OS: avg RNFL 76 um, no RNFL thinning, stable to previous PLAN: monitor OCT MAC INDICATION: DME OS OD: unreliable scan secondary to previous retinal scarring OS: normal GCC w/o thinning, parafoveal IRF seen on previous scan appears resolved today PLAN: monitor ASSESSMENT AND MANAGEMENT: DEC 25, 2024 1. Type 2 Diabetes Mellitus without retinopathy OD, mild NPDR OS - last A1C ~7% in July - controlled w/ insulin - OCT MAC OS today: parafoveal IRF improved/resolved compared to prev - scattered - educated pt on condition. Advised continued work to keep A1C <7% to reduce risk of retinopathy or vision loss PLAN: monitor annually 2. Ocular Hypertension OD>OS - OD likely exacerbated by prior trauma - IOP today tx w/ Simbrinza BID OU *TMAX - Previously trialed: - Timolol qam OD - Xal QHS OD w/ minimal effect - OCT RNFL today *no RNFL thinning 360 OU - Gonio: open to CB in all quadrants OU, some angle fibrosis OD - Pachs: pending - HVF: pending, recommend OS first and possibly omit OD entirely given h/o trauma and poor vision - Cont Simbrinza BID OU *pt was off medication for 6 days earlier this month *given IOP stable to previous and good RNFL, cont Simbrinza BID OU to watch for any possible further IOP lowering effect vs med failure - Educated pt on condition PLAN: monitor in 6 months for HVF 24-2 (OS first), IOP check, and pachs 3. H/o trauma with subsequent scarring OD - corneal laceration w/ knife at age 10 - (+) RD at age 65 - vision limited secondary to corneal and retinal scarring - BCVA stable, ranging from 20/200 to 20/400 - Cont monocular precautions and use of polycarb lenses PLAN: monitor 4. Age-related combined form cataracts OS - not impeding vision - educated pt on condition; non-surgical until BCVA 20/40 or worse PLAN: monitor annually 5. Pseudophakia OD - PCIOL centered and clear PLAN: monitor 6. Dry Eye Syndrome OU - Pt symptoms relieved w/ OTC ATs PRN OU PLAN: monitor #. Refractive Error w/ presbyopia OU - vision today stable to previous - cont hab rx PLAN: monitor Patient educated on all findings and given the opportunity to have questions answered. Patient indicated understanding. RTC 6 months for HVF 24-2 (OS first), IOP check, and pachs /luzma Dyson OD RESIDENT SUPERVISOR [employer]SEMBL[employer] ROOM Signed: 12/25/2024 18:41 /fátima/ MARIANO JOHNSON OD Staff Physician, Optometry Cosigned: 12/26/2024 16:05 12/26/2024 ADDENDUM STATUS: COMPLETED I have reviewed the history, findings and agree with the assessment and plan as charted in CPRS on this established patient. /luzma JOHNSON OD Staff Physician, Optometry Signed: 12/26/2024 16:05 DHARA DYSON [facility]
[2025-01-21] VITALS (7 sets, daily range): BP systolic 121–154; BP diastolic 65–78; PULSE 77–94; RESP 1–18; TEMP 36.4–36.7; O2SAT 95–99; BMI 30.5
--- NOTE | ~2025-01-21 | XR_ITS ---
EXAMINATION: XR chest 2V 01/21/2025 11:40 INDICATION: Chest pain PROCEDURE: 2 view chest COMPARISON: 12/28/2022 FINDINGS: The lungs are clear. The cardiomediastinal silhouette is within normal limits. There are no pleural effusions. There is no pneumothorax suspected. IMPRESSION: 1: NO ACUTE CARDIOPULMONARY DISEASE. Reviewed, dictated and finalized at location O.
--- NOTE | ~2025-01-21 | XR_ITS ---
EXAMINATION: XR sm bowel follow through WS DATE: 01/22/2025 17:05 INDICATION: Small bowel obstruction TECHNIQUE: Certified [employer] radiograph(s) of the abdomen was/were obtained. Oral contrast was administered, and sequential radiographs of the abdomen were obtained until oral contrast was noted to be in the proximal colon. COMPARISON: CT dated 01/21/2025 FINDINGS: Certified [employer] image demonstrates nasogastric tube with distal tip in proximal side port in the body the stomach. Cholecystectomy clips in right upper quadrant. Large right renal stone projecting over the right abdomen. Tiny metallic foreign in the anterior abdominal wall projects over the right lower quadrant. L3-L5 laminectomies. Mild lumbar levoscoliosis with moderate spondylosis. Transit time from the stomach to proximal colon was approximately 3-4.5 hours. There is normal caliber and mucosal fold pattern throughout the small bowel. IMPRESSION: 1. Delayed transit of contrast in the colon which takes between 3-4.5 hours without significant dilation of the small bowel consistent with with ileus versus partial small bowel obstruction. Would favor the latter given the transition point at the terminal ileum where there is some stranding suggesting terminal ileitis on prior CT. 2. Large right renal stone.. Reviewed, dictated and finalized at location A. IMPRESSION: 1. Delayed transit of contrast in the colon which takes between 3-4.5 hours wit hout significant dilation of the small bowel consistent with with ileus versus partial small bowel obstruction. Would favor the latter given the transition po int at the terminal ileum where there is some stranding suggesting terminal ile itis on prior CT. 2. Large right renal stone..
--- NOTE | ~2025-01-21 | XR_ITS ---
EXAMINATION: XR abdomen gastric tube insert DATE: 01/21/2025 16:11 INDICATION: Nasogastric tube placement TECHNIQUE: AP view of the abdomen and lower chest was obtained for evaluation of feeding tube placement. COMPARISON: 11/26/2024 FINDINGS: Nasogastric tube tip and proximal side port in the body of the stomach. Cholecystectomy clips in right upper quadrant. Visualized mid to lower lungs are clear. No pleural effusion. Heart size is normal. IMPRESSION: 1. Nasogastric tube in expected position with distal tip in proximal side port in the stomach. Reviewed, dictated and finalized at location A.
--- NOTE | ~2025-01-21 | XR_ITS ---
EXAMINATION: XR abdomen obstructive series DATE: 01/25/2025 15:22 INDICATION: Abdominal pain and obstipation TECHNIQUE: Frontal supine and upright views of the abdomen were obtained. COMPARISON: None. FINDINGS: There is some gas scattered throughout nondilated large and small bowel in a nonspecific, nonobstructive bowel gas pattern. No free intraperitoneal gas. Cholecystectomy clips in right upper quadrant. 1.2 cm right renal stone. Unchanged small metallic density anterior abdominal wall projecting slightly to the right the L3 vertebral body. Lumbar levoscoliosis with moderate spondylosis. Visualized lung bases are clear. Heart size is normal. IMPRESSION: 1. No free intraperitoneal gas or dilated gas-filled loops of bowel to suggest obstruction. 2. 1.2 cm right renal stone. Reviewed, dictated and finalized at location A.
--- NOTE | ~2025-01-21 | CT_ITS ---
EXAMINATION: CTA chest abdomen pelvis DATE: 01/21/2025 12:56 CDT INDICATION: CP, abdominal pain, vomiting TECHNIQUE: Computed tomographic angiography (CTA) of the chest, abdomen, and pelvis was performed with intravenous contrast. The dose-length product was 1174.75 mGy-cm. Maximum intensity projection 3D-reconstructions of the aorta and other arteries were constructed by the technologist on a separate workstation. COMPARISON: CT abdomen pelvis 11/24/2024; PET/CT 09/20/2023 FINDINGS: CHEST CTA: No enlarged mediastinal or hilar lymph nodes. Heart is mildly enlarged. Thoracic aorta is not aneurysmal. Tracheobronchial tree is patent. No pneumothorax. No pleural effusion. There are a few small to moderate-sized groundglass opacity scattered throughout both lungs most prominent in the right upper lobe posteriorly. ABDOMEN AND PELVIS CTA: Small amount of fluid in the abdomen. Spleen is mildly enlarged and heterogeneous. The spleen is likely heterogeneous due to the timing of the contrast bolus. Liver, adrenal glands and pancreas are unremarkable. Gallbladder is surgically absent. Small amount of fat stranding in the abdomen and pelvis. Abdominal aorta is not aneurysmal. Prostate gland is mildly enlarged. Concentric thickening of the howard of the mildly distended bladder. Mild diverticulosis. Small to moderate amount of stool in the large bowel. There are a few dilated small bowel loops in the right abdomen and pelvis was surrounding fluid and fat stranding. Bones appear osteopenic. Multilevel degenerative change throughout the visualized spine. CTA: Origin of the celiac artery is widely patent. Visualized branches of the celiac artery are patent. Single bilateral renal arteries which are widely patent. Superior mesenteric artery origin and branches are widely patent. Inferior mesenteric artery is patent. Bilateral common iliac arteries, bilateral internal and external iliac arteries and bilateral common femoral arteries are widely patent. IMPRESSION: 1. There are a few dilated small bowel loops in the right abdomen and pelvis with a small amount of fluid and surrounding fat stranding. The finding are concerning for at least a partial small bowel obstruction. Follow-up is recommended. 2. There are a few small to moderate-sized groundglass opacity scattered throughout both lungs most prominent in the right upper lobe posteriorly. Differential includes but is not limited to edema, pneumonia or hypersensitivity pneumonitis. Recommend follow-up to resolution. A follow-up chest CT in 2-4 weeks is recommended to assess for interval clearance. 3. Concentric thickening of the howard of the mildly distended bladder. Differential includes incomplete bladder wall distention versus cystitis. 4. Mild splenomegaly. Reviewed, dictated and finalized at location Q. IMPRESSION: 1. There are a few dilated small bowel loops in the right abdomen and pelvis wi th a small amount of fluid and surrounding fat stranding. The finding are fredy rning for at least a partial small bowel obstruction. Follow-up is recommended. 2. There are a few small to moderate-sized groundglass opacity scattered throug hout both lungs most prominent in the right upper lobe posteriorly. Differentia l includes but is not limited to edema, pneumonia or hypersensitivity pneumonit is. Recommend follow-up to resolution. A follow-up chest CT in 2-4 weeks is rec ommended to assess for interval clearance. 3. Concentric thickening of the howard of the mildly distended bladder. Differen tial includes incomplete bladder wall distention versus cystitis. 4. Mild splenomegaly.
--- OUTSIDE RECORDS SUMMARY | 2025-01-21 05:53 | XMS_ITS | Continuity of Care Document ---
Author Name [facility] Organization [facility] Care Team Providers Care Supervisor Chemical Name Role Phone [facility] Unavailable Unavailable Problems Combined list of problems from [facility] and [facility] facilities. It does not include entries that were removed or entered in error. Problem Status Onset Date Problem Type Date of Resolution Comments Source Benign essential hypertension Active Condition [facility] Benign polyp of colon Active Condition Jul 29, 2019 Entered By: LAURIE GRIJALVA Comment: colonoscopy 06/2019 and had multiple polyps; colonoscopy due again 2022 [facility] DM - Diabetes mellitus Active Condition [facility] Hearing loss Active Condition [facility] TIA Active Condition [facility] Diagnosis: ICD-10-CM H40.053 Ocular hypertension, bilateral Active Diagnosis [facility] Diagnosis: ICD-10-CM E11.3212 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, l eye Active Diagnosis [facility] Diagnosis: ICD-10-CM I10 Essential (primary) hypertension Active Diagnosis [facility] Diagnosis: ICD-10-CM Z71.9 Counseling, unspecified Active Diagnosis [facility] Diagnosis: ICD-10-CM E11.3293 Type 2 diab with mild nonp rtnop without macular edema, bi Active Diagnosis [facility] Medications Combined list of outpatient medications from [facility] and [facility] facilities.Medications provided include 1) outpatient medications from the last 15 months, and 2) patient-reported medications. Medication Details Route Status Patient Instructions Prescription Expires Prescription Number Last Dispense Date Ordering Provider Order Date Order Qty Source ATORVASTATI N CA 80MG TAB TAKE ONE-HALF TABLET BY MOUTH EVERY EVENING ORAL ACTIVE ELIZABETH ESTEBAN 2021 [facility] N BRIMONIDINE 0.2%/BRINZO LAMIDE 1% SUSP,OPH INSTILL 1 DROP IN BOTH EYES TWICE A DAY ([facility]) OPHTHA LMIC ACTIVE 08/30/2025 [id number] BARRETT PAZ 2024 24 [facility] N INSULIN,ASP ART,HUMAN 100 UNT/ML INJ INJECT 18 UNITS UNDER THE SKIN THREE TIMES A DAY BEFORE MEALS SUBCUT ANEOUS ACTIVE ELIZABETH ESTEBAN Elias 2021 [facility] N INSULIN,GLA RGINE,HUMAN 100 UNT/ML INJ INJECT 56 UNITS UNDER THE SKIN ONCE A DAY SUBCUT ANEOUS ACTIVE ELIZABETH ESTEBAN Elias 2021 [facility] N LACOSAMIDE 100MG TAB TAKE ONE TABLET BY MOUTH TWICE A DAY ORAL ACTIVE ELIZABETH ESTEBAN Elias 2022 [facility] [place] LEVETIRACET AM 500MG TAB TAKE TWO TABLETS BY MOUTH TWICE A DAY ORAL ACTIVE ELIZABETH ESTEBAN Elias 2022 [facility] N PREGABALIN 300MG CAP,ORAL TAKE 1 CAPSULE BY MOUTH TWICE A DAY ORAL ACTIVE ELIZABETH ESTEBAN Elias 2023 [facility] N ZONISAMIDE 100MG CAP TAKE 1 CAPSULE BY MOUTH TWICE A DAY ORAL ACTIVE ELIZABETH ESTEBAN Elias 2023 [facility] N Allergies, Adverse Reactions, Alerts Combined list of allergies from Department of Defense and Veterans Affairs facilities. It does not include entries that were removed or entered in error. Substance Category Reaction Severity Reaction type Status Date Reported Comments Source CODEINE Propensity to adverse reactions to drug (finding) Hyperactive behavior active 8 [facility] JARDIANCE Propensity to adverse reactions to drug (finding) Seizure active 4 [facility] Immunizations Combined list of available immunizations from the Department of Defense and Veterans Affairs facilities. Immunization Series Date Given Administered By Site Reaction Lot Number CVX Code Drug Entertainment Director Status Comments Source COVID-19 ([employer]), MRNA, LNP-S, PF, DARRIUS-SUCROSE, 30 MCG/0.3 ML (AGES 12+ YEARS) 4 2023 309 complet ed HISTORICA L INFORMATI ON - FROM OTHER [facility] N INFLUENZA, ADJUVANTED, TRIVALENT, PF 3 2023 168 complet ed HISTORICA L INFORMATI ON - FROM OTHER [facility] RSV, BIVALENT, PROTEIN SUBUNIT RSVPREF, DILUENT RECONSTITUTED , 0.5 ML, PF 2023 JEAN GARCIA LEFT DELTO ID [id number] 305 complet ed ADMINISTE RED AT [facility] PNEUMOCOCCAL CONJUGATE PCV20, POLYSACCHARID E [id number] CONJUGATE, ADJUVANT, PF 1 2022 216 complet ed HISTORICA L INFORMATI ON - FROM [facility] N INFLUENZA, UNSPECIFIED FORMULATION 2022 88 complet ed HISTORICA L INFORMATI ON - SOURCE UNSPECIFI ED, [facility] N COVID-19 ([facility]), MRNA, LNP-S, PF, DARRIUS-SUCROSE, 30 MCG/0.3 ML (AGES 12+ YEARS) 3 2022 309 complet ed HISTORICA L INFORMATI ON - FROM OTHER [facility] N INFLUENZA, ADJUVANTED, QUADRIVALENT, PF 2 2022 205 complet ed HISTORICA L INFORMATI ON - FROM OTHER [facility] COVID-19 ([facility]), MRNA, LNP-S, BIVALENT, PF, 30 MCG/0.3 ML DOSE 2 2021 300 complet ed HISTORICA L INFORMATI ON - FROM OTHER [facility], [facility] N INFLU[facility], HIGH-DOSE, QUADRIVALENT, PF 1 2021 197 complet ed HISTORICA L INFORMATI ON - FROM [facility] DIVIO N INFLUENZA, UNSPECIFIED FORMULATION 2021 88 complet ed HISTORICA L INFORMATI ON [facility] N COVID-19 ([employer] [facility]), MRNA, LNP-S, PF, 30 MCG/0.3 ML DOSE 3 2020 208 complet ed [facility] INFLUENZA, UNSPECIFIED FORMULATION 2020 88 complet ed [facility] COVID-19 ([facility]), MRNA, LNP-S, PF, 30 MCG/0.3 ML DOSE 2 2020 208 complet ed PFR; [id number]; 1 [facility] N ZOSTER RECOMBINANT 1 2020 187 complet ed HISTORICA L INFORMATI ON - FROM OTHER REGISTRY, [facility] N COVID-19 ([facility]), MRNA, LNP-S, PF, 30 MCG/0.3 ML DOSE 1 2020 208 complet ed PFR; [id number]; 1 [facility] N INFLUENZA, UNSPECIFIED FORMULATION 2019 88 complet ed [facility] N PNEUMOCOCCAL POLYSACCHARID E [id number] 2019 33 complet ed [facility] N INFLUENZA, UNSPECIFIED FORMULATION 2018 88 complet ed Fluzone [facility] N TDAP 2018 115 complet ed Left Deltoid [facility] N INFLUENZA, UNSPECIFIED FORMULATION 2017 88 complet ed [facility] N PNEUMOCOCCAL CONJUGATE PCV 13 2016 133 complet ed per patient [facility] N INFLUENZA, UNSPECIFIED FORMULATION 2016 88 complet ed [facility] Vital Signs Combined list of inpatient and outpatient Vital Signs from Department of Defense and Veterans Affairs, ranging from 12 months to all on record, depending upon the facility. Vital Sign Value Date Comments Source SYSTOLIC BLOOD PRESSURE 161 08/11/2024 13:11:03 [facility] DIASTOLIC BLOOD PRESSURE 75 08/11/2024 13:11:03 [facility] PULSE OXIMETRY 96 08/11/2024 13:11:03 [facility] WEIGHT 225.2 08/11/2024 13:11:03 [facility] BMI 32 kg/m2 08/11/2024 13:11:03 [facility] PAIN 0 08/11/2024 13:11:03 [facility] TEMPERATURE 97.8 08/11/2024 13:11:03 [facility] PULSE 86 08/11/2024 13:11:03 [facility] RESPIRATION 20 08/11/2024 13:11:03 [facility] Encounters Combined list of: 1) Encounters from Department of [facility] Affairs facilities going backup to the last 18 months, not all [place] inpatient encounters are included; 2) Encounters from the Department of [facility] facilities going backup to 280 months. Location Location Details Encounter Type Encounter Number Reason For Visit Attending Provider ADM Date DC Date Status Disposition Source [facility] Outpatient Encounter [id number] 08/23 [facility] [place] 1/ [id number] Diagnos is: ICD-10- CM E11.329 3 Type 2 diab with mild nonp rtnop without macular edema, bi REJI ATKINS 02/28 [facility] Outpatient Encounter [id number] 04/01 [facility] END OF LIFE COUNSELING [id number] Diagnos is: ICD-10- CM Z71.9 Community Health Nurse ing, COLIN Bates 07/18 [facility] Outpatient Encounter [id number] CINDY GARCIA [facility] En[facility] [id number] 08/11 [facility] OFFICE O/P EST MOD 30 MIN [id number] Diagnos is: ICD-10- CM I10 Essenti al (primar y) hyperte nsmaria luisa ESTEBANELIZABETH Elias 08/11 [facility] Outpatient Encounter [id number] 08/22 [facility] O/P EST LOW 20 MIN [id number] Diagnos is: ICD-10- CM E11.321 2 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 Social History Type Response Date Comment Source Tobacco smoking status [facility]-TOBACCO NEVER USED CIGARETTES 08/11/2024 [facility] History of tobacco use [facility]-TOBACCO USE FORMER OTHER TYPE 08/11/2024 smoked a pipe- quit in 1980 [facility] History of tobacco use VA-TOBACCO QUIT 15 YRS OR MORE 07/23/2023 [facility] History of tobacco use VA-TOBACCO FORMER USER 07/31/2022 [facility] History of tobacco use VA-TOBACCO FORMER USER 08/05/2021 [facility] History of tobacco use VA-TOBACCO FORMER USER 07/28/2020 [facility] History of tobacco use VA-TOBACCO FORMER USER 07/29/2019 [facility] History of tobacco use VA-TOBACCO FORMER USER 08/01/2018 [facility] Plan of Care List of future care activities from [facility] facilities. Additional future care activities may be listed in the Assessment and Plan section. Date/Time Care Activity Care Activity Detail Facili ty 06/23/2025 AMBULATORY - SURGERY AMBULATORY - SURGERY [facility] Advance Directives List of completed, amended, or rescinded Advance Directives on record at [facility] facilities. An actual copy of the Directive is not included. Date Advance Directive Provider Source 08/22/2024 ADVANCE DIRECTIVE REAGAN LY [facility]
--- OUTSIDE RECORDS SUMMARY | 2025-01-21 05:53 | XMS_ITS | Continuity of Care Document ---
Author Name [facility] Organization [facility] Care Team Providers Care Clammer Name Role Phone [facility] Unavailable Unavailable Problems Combined list of problems from [facility] and [facility] facilities. It does not include entries that were removed or entered in error. Problem Status Onset Date Problem Type Date of Resolution Comments Source Benign essential hypertension Active Condition [facility] Benign polyp of colon Active Condition Jul 29, 2019 Entered By: LAURIE GRIJALVA Comment: colonoscopy 06/2019 and had multiple polyps; colonoscopy due again 2022 [facility] DM - Diabetes mellitus Active Condition [facility] Hearing loss Active Condition [facility] TIA Active Condition [facility] Diagnosis: ICD-10-CM H40.053 Ocular hypertension, bilateral Active Diagnosis [facility] Diagnosis: ICD-10-CM E11.3212 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 and [facility] facilities.Medications provided include 1) outpatient medications from the last 15 months, and 2) patient-reported medications. Medication Details Route Status Patient Instructions Prescription Expires Prescription Number Last Dispense Date Ordering Provider Order Date Order Qty Source ATORVASTATI N CA 80MG TAB TAKE ONE-HALF TABLET BY MOUTH EVERY EVENING ORAL ACTIVE ELIZABETH ESTEBAN 2021 [facility] N BRIMONIDINE 0.2%/BRINZO LAMIDE 1% SUSP,OPH INSTILL 1 DROP IN BOTH EYES TWICE A DAY ([facility]) OPHTHA LMIC ACTIVE 08/30/2025 [id number] BARRETT PAZ 2024 24 [facility] N INSULIN,ASP ART,HUMAN 100 UNT/ML INJ INJECT 18 UNITS UNDER THE SKIN THREE TIMES A DAY BEFORE MEALS SUBCUT ANEOUS ACTIVE ELIZABETH ESTEBAN Elias 2021 [facility] N INSULIN,GLA RGINE,HUMAN 100 UNT/ML INJ INJECT 56 UNITS UNDER THE SKIN ONCE A DAY SUBCUT ANEOUS ACTIVE ELIZABETH ESTEBAN Elias 2021 [facility] N LACOSAMIDE 100MG TAB TAKE ONE TABLET BY MOUTH TWICE A DAY ORAL ACTIVE ELIZABETH ESTEBAN Elias 2022 [facility] [place] LEVETIRACET AM 500MG TAB TAKE TWO TABLETS BY MOUTH TWICE A DAY ORAL ACTIVE ELIZABETH ESTEBAN Elias 2022 [facility] N PREGABALIN 300MG CAP,ORAL TAKE 1 CAPSULE BY MOUTH TWICE A DAY ORAL ACTIVE ELIZABETH ESTEBAN Elias 2023 [facility] N ZONISAMIDE 100MG CAP TAKE 1 CAPSULE BY MOUTH TWICE A DAY ORAL ACTIVE ELIZABETH ESTEBAN Elias 2023 [facility] Allergies, Adverse Reactions, Alerts Combined list of allergies from Department of Defense and Veterans Affairs facilities. It does not include entries that were removed or entered in error. Substance Category Reaction Severity Reaction type Status Date Reported Comments Source CODEINE Propensity to adverse reactions to drug (finding) Hyperactive behavior active 8 [facility] JARDIANCE Propensity to adverse reactions to drug (finding) Seizure active 4 [facility] Immunizations Combined list of available immunizations from the Department of Defense and Veterans Affairs facilities. Immunization Series Date Given Administered By Site Reaction Lot Number CVX Code Drug Ski Technician Status Comments Source COVID-19 ([facility]), MRNA, LNP-S, PF, DARRIUS-SUCROSE, 30 MCG/0.3 ML (AGES 12+ YEARS) 4 2023 309 complet ed HISTORICA L INFORMATI ON - FROM OTHER [facility] N INFLUENZA, ADJUVANTED, TRIVALENT, PF 3 2023 168 complet ed HISTORICA L INFORMATI ON - FROM OTHER [facility] RSV, BIVALENT, PROTEIN SUBUNIT RSVPREF, DILUENT RECONSTITUTED , 0.5 ML, PF 2023 JEAN GARCIA LEFT DELTO ID [id number] 305 complet ed ADMINISTE RED AT [facility] PNEUMOCOCCAL CONJUGATE PCV20, POLYSACCHARID E [id number] CONJUGATE, ADJUVANT, PF 1 2022 216 complet ed HISTORICA L INFORMATI ON - FROM [facility] N INFLUENZA, UNSPECIFIED FORMULATION 2022 88 complet ed HISTORICA L INFORMATI ON - SOURCE UNSPECIFI ED, [facility] N COVID-19 ([facility]), MRNA, LNP-S, PF, DARRIUS-SUCROSE, 30 MCG/0.3 ML (AGES 12+ YEARS) 3 2022 309 complet ed HISTORICA L INFORMATI ON - FROM OTHER [facility] N INFLUENZA, ADJUVANTED, QUADRIVALENT, PF 2 2022 205 complet ed HISTORICA L INFORMATI ON - FROM OTHER [facility] COVID-19 ([facility]), MRNA, LNP-S, BIVALENT, PF, 30 MCG/0.3 ML DOSE 2 2021 300 complet ed HISTORICA L INFORMATI ON - FROM OTHER [facility], [facility] N INFLUENZA, HIGH-DOSE, QUADRIVALENT, PF 1 2021 197 complet ed HISTORICA L INFORMATI ON - FROM [facility] N INFLUENZA, UNSPECIFIED FORMULATION 2021 88 complet ed HISTORICA L INFORMATI ON - [facility] N COVID-19 ([facility]), MRNA, LNP-S, PF, 30 MCG/0.3 ML DOSE 3 2020 208 complet ed [facility] INFLUENZA, UNSPECIFIED FORMULATION 2020 88 complet ed [facility] N COVID-19 ([facility]), MRNA, LNP-S, PF, 30 MCG/0.3 ML DOSE 2 2020 208 complet ed PFR; [id number]; 1 [facility] N ZOSTER RECOMBINANT 1 2020 187 complet ed HISTORICA L INFORMATI ON - FROM OTHER REGISTRY, [facility] N COVID-19 ([facility]), MRNA, LNP-S, PF, 30 MCG/0.3 ML DOSE 1 2020 208 complet ed PFR; [id number]; 1 [facility] N INFLUENZA, UNSPECIFIED FORMULATION 2019 88 complet ed [facility] N PNEUMOCOCCAL POLYSACCHARID E [id number] 2019 33 complet ed [facility] N INFLUENZA, UNSPECIFIED FORMULATION 2018 88 complet ed Fluzone [facility] N TDAP 2018 115 complet ed Left Deltoid [facility] N INFLUENZA, UNSPECIFIED FORMULATION 2017 88 complet ed [facility] N PNEUMOCOCCAL CONJUGATE PCV 13 2016 133 complet ed per patient [facility] N INFLUENZA, UNSPECIFIED FORMULATION 2016 88 complet ed [facility] N Vital Signs Combined list of inpatient and outpatient Vital Signs from Department of Defense and Veterans Affairs, ranging from 12 months to all on record, depending upon the facility. Vital Sign Value Date Comments Source SYSTOLIC BLOOD PRESSURE 161 08/11/2024 13:11:03 [facility] DIASTOLIC BLOOD PRESSURE 75 08/11/2024 13:11:03 [facility] PULSE OXIMETRY 96 08/11/2024 13:11:03 [facility] WEIGHT 225.2 08/11/2024 13:11:03 [facility] BMI 32 kg/m2 08/11/2024 13:11:03 [facility] PAIN 0 08/11/2024 13:11:03 [facility] TEMPERATURE 97.8 08/11/2024 13:11:03 [facility] PULSE 86 08/11/2024 13:11:03 [facility] RESPIRATION 20 08/11/2024 13:11:03 [facility] Encounters Combined list of: 1) Encounters from Department of [facility] Affairs facilities going backup to the last 18 months, not all [place] inpatient encounters are included; 2) Encounters from the Department of [facility] facilities going backup to 280 months. Location Location Details Encounter Type Encounter Number Reason For Visit Attending Provider ADM Date DC Date Status Disposition Source [facility] Outpatient Encounter [id number] 08/23 [facility] [place] 1/ [id number] Diagnos is: ICD-10- CM E11.329 3 Type 2 diab with mild nonp rtnop without macular edema, bi REJI ATKINS 02/28 [facility] Outpatient Encounter [id number] 04/01 [facility] END OF LIFE COUNSELING [id number] Diagnos is: ICD-10- CM Z71.9 Clay Hoister ing, COLIN Bates 07/18 [facility] Outpatient Encounter [id number] CINDY GARCIA [facility] En[facility] [id number] 08/11 [facility] O/P EST MOD 30 MIN [id number] Diagnos is: ICD-10- CM I10 Essenti al (primar y) hyperte nsmaria luisa ESTEBANELIZABETH Elias 08/11 [facility] Outpatient Encounter [id number] 08/22 [facility] O/P EST LOW 20 MIN [id number] Diagnos is: ICD-10- CM E11.321 2 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 Social History Type Response Date Comment Source Tobacco smoking status [facility] [place]-TOBACCO NEVER USED CIGARETTES 08/11/2024 [facility] History of tobacco use VA-TOBACCO USE FORMER OTHER TYPE 08/11/2024 smoked a pipe- quit in 1980 [facility] History of tobacco use VA-TOBACCO QUIT 15 YRS OR MORE 07/23/2023 [facility] History of tobacco use VA-TOBACCO FORMER USER 07/31/2022 [facility] History of tobacco use VA-TOBACCO FORMER USER 08/05/2021 [facility] History of tobacco use VA-TOBACCO FORMER USER 07/28/2020 [facility] History of tobacco use VA-TOBACCO FORMER USER 07/29/2019 [facility] History of tobacco use VA-TOBACCO FORMER USER 08/01/2018 [facility] Plan of Care List of future care activities from [facility] facilities. Additional future care activities may be listed in the Assessment and Plan section. Date/Time Care Activity Care Activity Detail Facili ty 06/23/2025 AMBULATORY - SURGERY AMBULATORY - SURGERY [facility] Advance Directives List of completed, amended, or rescinded Advance Directives on record at [facility] facilities. An actual copy of the Directive is not included. Date Advance Directive Provider Source 08/22/2024 ADVANCE DIRECTIVE REAGAN LY [facility]
--- NOTE | 2025-01-21 10:32 | ECG_ITS ---
Test Date: 2025-01-21 10:51:33 Measurements Intervals [place] Rate: 109 P: 66 DE: 170 QRS: -20 QRSD: 106 T: 62 QT: 321 QTc: 433 Interpretive Statements SINUS TACHYCARDIA DELAYED PRECORDIAL R/S TRANSITION BORDERLINE ST-T WAVE ABNORMALITY- HIGH LATERAL LEADS ABNORMAL ECG No previous ECG available for comparison Electronically Signed On 01-21-2025 11:01:46 CDT by Evelio Osorio D.O.
--- OUTSIDE RECORDS SUMMARY | 2025-01-21 10:54 | XMS_ITS | Patient Health Record ---
Author Organization [employer] Address [address] [facility]. [address] [place] [id number] Care Team Providers Care Ceramist Name Role Phone Eric Allen DO Primary Care Provider Unavailab le Reason For Referral No Information Plan Of Treatment No Information Insurance Providers Payer Name Payer Address Payer Phone Subscriber Number Group Number Insured Name Patient Relationship to Insured Coverage Start Date Coverage End Date [employer]mr- [employer] [address] [phone] [id number] Dane Parker Self - patient is the insured
--- OUTSIDE RECORDS SUMMARY | 2025-01-21 10:54 | XMS_ITS | Encounter Summary ---
Author Organization [facility] Address [address] [place] [address] Care Team Providers Care Tea Bag Machine Tender Name Role Phone Eliceo Templeton RN Unavailable [phone] Casie Pruett RN Unavailable Unava ilable Redd De Anda MD Primary Care Provider [phone] Reason for Visit * Reason Comments Refill Request Encounter Details Date Type Department Care Team (Late st Contact Info) Description 09/21/2022 Refill [facility] - Orthopedics [address] [place] [address] Abhijeet Gallego MD [address] 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
--- OUTSIDE RECORDS SUMMARY | 2025-01-21 10:54 | XMS_ITS | Clinical Summary ---
Author Organization [facility] Address [address] [place] [address] Phone Care Team Providers Care Early Childhood Aide Classroom Name Role Phone Redd De Anda MD Primary Care Provider [phone] Allergies Active Allergy Reactions Criticality Noted Date Comments Codeine Other (See Comments) 01/16/2014 Extreme insomnia Empagliflozin Other (See Comments) 05/14/2022 Euglycemic dka Other reaction(s): CATEGORY CONSULTANT Dysfunction Euglycemic dka Medications insulin aspart protamine-aspar [...] Encounters Date Type Department Care Team Description 01/13/2025 External Device Data STL ABSTRACTION Provider, Abstract 12/30/2024 External Device Data STL ABSTRACTION Provider, Abstract 11/11/2024 External Device Data ST[facility] ABSTRACTION Provider, [...] on file Legal Sex Male 2:53 AM SKIRT TRIMMER Gender Identity Not on file Sexual Orientation [...] st Contact Info) Description 07/14/2025 2:45 PM SKIRT TRIMMER Office Visit [facility] Oncology and Hematology - [place] [address] [place] [address] Rey Reyna MD [address] [facility] [address] [place] [address] Health Maintenance Due Date Last [...] Q 6 MONTHS 04/30/2023 10/29/2022, COVID-19 Vaccine ( - 2023-2 5 season) 2024 04/01/2024, 03/12/2023, 03/16/2022, Additional history exists INFLUENZA VACCINE (#1) 2024 , 03/12/2023, 03/02/2022, Additional history exists DIABETES ANNUAL RETINAL EXAM 02/28/2025 02/29/2024, 02/03/2022 DTAP/TDAP/TD VACCINES (4 - T d or Tdap) 03/17/2032 03/17/2022, 08/01/2018, 01/03/2012 PNEUMOCOCCAL VACCINE 50+ YEARS Completed 1 06/16/2022, 07/29/2019, 02/25/2017, Additional history exists Medical Devices Implanted Type Area Biological Chemist Device Identifier Shelf Expiration Date Model / Serial / Lot Knee Knee Insurance [facility] Advance Directives For more information, please contact: [phone] * Full Code (Latest Code Status on File) Date Activated Date Inactivated Comments 10/16/2018 12:47 AM 10/17/2018 4:54 PM * Full Code Date Activated Date Inactivated Comments 01/27/2014 8:03 AM 01/27/2014 12:09 PM * Full Code Date Activated Date Inactivated Comments 01/27/2014 7:45 AM 01/27/2014 8:03 AM Care Teams Early Childhood Aide Classroom Relationship Specialty Start Date End Date Redd De Anda MD [address] [place] [address] PCP - General Internal Medicine 03/27/23
--- OUTSIDE RECORDS SUMMARY | 2025-01-21 10:54 | XMS_ITS | Clinical Summary ---
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 180 capsule 1 10/29/19 25 Active zonisamide (ZONEGRAN) 100 mg capsule TAKE 2 CAPSULES BY MOUTH AT BEDTIME 180 capsule 12/20/19 25 Active pregabalin (LYRICA) 300 mg capsule TAKE 1 CAPSULE BY MOUTH EVERYDAY AT BEDTIME 90 capsule 1 12/31/19 25 Active lacosamide (VIMPAT) 100 mg tablet TAKE 1 TABLET BY MOUTH EVERY DAY IN THE MORNING 90 tablet 3 01/02/20 25 Active lacosamide (VIMPAT) 100 mg tablet TAKE 1 TABLET BY MOUTH EVERY DAY IN THE MORNING 90 tablet 3 06/27/19 25 025 Discontinued pregabalin (LYRICA) 300 mg capsule TAKE 1 CAPSULE BY MOUTH EVERYDAY AT BEDTIME 90 capsule 10/03/19 25 025 Discontinued Active Problems Problem Noted [...] 12/27/2022 Assessment & Plan (07/23/2024 10:57 AM SEISMOGRAPH OPERATOR): The patient's neuropathy symptoms remained stable. [...] 08/29/2017 Assessment & Plan (07/23/2024 10:56 AM SEISMOGRAPH OPERATOR): Essential tremor symptoms remained stable. Continue zonisamide 200 mg at bedtime. Transient ischemic attack (TIA) 08/29/2017 Abdominal pain, LLQ (left lower quadrant) 2013 Splenomegaly 04/04/2014 DM (diabetes mellitus) type II controlled, neurological manifestation 10/22/2013 Need for prophylactic vaccin ation and inoculation against influenza 03/06/2013 Seizure 02/12/2013 Overview (08/30/2016): Seizure Assessment & Plan (07/23/2024 10:52 AM SEISMOGRAPH OPERATOR): The patient remains seizure-free on his current medications. Continue lacosamide 100 mg Continue Keppra a 1000 mg in the morning and 1500 mg in the p.m.. He is also on Lyrica and zonisamide which can also help treat seizures. Assessment & Plan (04/22/2024 8:17 AM SEISMOGRAPH OPERATOR): The patient has on multiple seizure [...] on file Legal Sex Male 3:24 PM SEISMOGRAPH OPERATOR Gender Identity Not on file Sexual Orientation Not on file Obstetrics History Last Filed Vital Signs Vital Sign Reading Time Taken Comments Blood Pressure 155/79 07/23/2024 10:19 AM SEISMOGRAPH OPERATOR Pulse 85 10/29/2023 2:38 PM CDT Temperature 36.4 C (97.5 F) 10/09/2023 9:45 AM CDT Respiratory Rate 10/29/2023 2:38 PM CDT Oxygen Saturation 97% 10/29/2023 2:38 PM CDT Inhaled Oxygen Concentration - - Weight 101.6 kg (224 lb) 07/23/2024 10:19 AM SEISMOGRAPH OPERATOR Height 175.3 cm (5' 9) 07/23/2024 10:19 AM SEISMOGRAPH OPERATOR Body Mass Index 33.08 07/23/2024 10:19 AM SEISMOGRAPH OPERATOR Plan of Treatment Health Maintenance Due [...] Fall Risk Assessment 10/08/2024 10/09/2023 Influenza Vaccine (#1) 2025 , 03/28/2021, 02/26/2020, Additional history exists DTaP/Tdap/Td Vaccine (4 - Td or Tdap) 03/17/2032 03/17/2022, 08/01/2018, 01/03/2012 Pneumococcal vaccine 65+ Completed 020, 02/25/2017, 10/18/2016, Additional history exists Abdominal Aortic Aneurysm (A AA) Screen Completed 10/28/2022, 01/20/2019, 09/02/2014, Additional history exists Insurance [employer] CHO[employer] MEDICARE PPO [employer]ICE MEDICARE PPO [employer]ICE MEDICARE PPO Care Teams Cork Slabs Sawyer Relationship Specialty Start Date End Date Redd De Anda MD PCP - General Internal Medicine 06/16/22
--- OUTSIDE RECORDS SUMMARY | 2025-01-21 10:54 | XMS_ITS | Clinical Summary ---
Author Organization [facility] Address [address] [address] Care Team Providers Care Hanger Name Role Phone Eliceo Templeton RN Unavailable [phone] Casie Pruett RN Unavailable Unava ilable Redd De Anda MD Primary Care Provider [phone] Source Comments [facility],non-owned Affiliates and Associated Physician Practices is amultiple site organization consisting of ambulatory clinics and hospital sitesin [place], [place] and [place]. This disclosure is being madepursuant to the Care Everywhere program and may not contain all information available regarding this patient. Last updated 18.[facility] Allergies Active Allergy Reactions Criticality Noted Date Comments Codeine 02/21/2010 Gets really hyper Empagliflozin REPAIRING CALIBRATOR Dysfunction 05/14/2022 Euglycemic dka Medications * Be [...] and heating? Not hard at all 10/28/2022 [facility] Occupat ional Health - Occupational Stress [...] place to sleep or slept in a chcf (including now)? 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 Not on file [...] MEDICARE AWV CALENDAR YEAR 2024 INFLUENZA VACCINE (#1) 2025 , 02/25/2022, 03/28/2021, Additional history exists COLON MONITORING [...] this topic Medical Devices Implanted Type Area Zipper Joiner Device Identifier Shelf Expiration Date Model / Serial / Lot Cmnt Bone Co Hv 40gm Implanted:Qty: 2 on 09/27/2016 by Enmanuel Cerrato MD at [facility] Right: Knee Orthopedics 05/27/2018 [id number] / / [id number] Cruciate Retaining Legion Nonporous Femoral Component Implanted:Qty: 1 on 09/27/2016 by Enmanuel Cerrato MD at [facility] Right: Knee [employer] 05/09/2025 [id number] / / [id number] Description:Note: explanted 1 x existing screw. Disposition: trash. Onelia 11 Right Non Porous Tibial Baseplate Implanted:Qty: 1 on 09/27/2016 by Enmanuel Cerrato MD at [facility] Right: Knee [employer] 03/11/2026 [id number] / / [id number] Resurfacing Round Patellar Component Implanted:Qty: 1 on 09/27/2016 by Enmanuel Cerrato MD at [facility] Right: Knee [employer] 01/21/2026 [id number] / / [id number] High Flexion Articular Insert Implanted:Qty: 1 on 09/27/2016 by Enmanuel Cerrato MD at [facility] Right: Knee [employer] 07/02/2025 [id number] / / [id number] George Shai Tib Uncem Fem Implanted:Qty: 1 on 09/27/2016 by Enmanuel Cerrato MD at [facility] BILL ONLY SHAI TIB UNCEM FEM SNORTHO / / Procedures Procedure Name Priority Date/Time Associated Diagnosis Comments COMPREHENSIVE METABOLIC PANEL STAT 01/08/2023 12:02 PM CDT HEPATITIS C AB SCREEN RFLX NAAT QUANT AM Draw 11/04/2022 4:26 AM CDT HEMOGLOBIN A1C Routine 10/29/2022 5:42 AM CDT MICROALB/CREAT RATIO URINE RANDOM PANEL Routine 05/17/2022 9:16 PM MEDICAL PAYMENT POSTER from Last 3 Months or Most Recently Relevant to Health Maintenance Results * (ABNORMAL) COMPREHENSIVE METABOLIC PANEL (01/08/2023 12:02 PM CDT) BUN 15 7 - 26 mg/dL 01/08/2023 12:38 PM [facility] Creatinine 0.72 0.71 - 1.16 mg/dL 01/08/2023 12:38 PM [facility] Sodium 140 136 - 145 mmol/L 01/08/2023 12:38 PM [facility] Potassium 4.1 3.5 - 4.5 mmol/L 01/08/2023 12:38 PM [facility] Chloride 110(H) 98 - 107 mmol/L 01/08/2023 12:38 PM [facility] CO2 21(L) 22 - 29 mmol/L 01/08/2023 12:38 PM [facility] Glucose 171(H) 70 - 115 mg/dL 01/08/2023 12:38 PM [facility] Calcium 9.3 8.4 - 10.2 mg/dL 01/08/2023 12:38 PM [facility] Protein Total 7.3 6.0 - 8.3 g/dL 01/08/2023 12:38 PM [facility] Albumin 4.0 3.4 - 5.0 g/dL 01/08/2023 12:38 PM [facility] Bilirubin Total 0.3 0.2 - 1.2 mg/dL 01/08/2023 12:38 PM [facility] Alkaline Phosphatase 85 40 - 150 U/L 01/08/2023 12:38 PM [facility] ALT 15 5 - 55 U/L 01/08/2023 12:38 PM [facility] AST 21 5 - 34 U/L 01/08/2023 12:38 PM [facility] Anion Gap 13 8 - 18 01/08/2023 12:38 PM [facility] BUN/Creatinine Ratio 21 7 - 23 01/08/2023 12:38 PM [facility] Osmolality Calculated 295 270 - 300 mOsm/kg 01/08/2023 12:38 PM [facility] Albumin/Globulin Ratio 1.2 1.1 - 2.3 01/08/2023 12:38 PM [facility] eGFR by CKD-EPI >90 >=90 mL/min/1.7 3 m2 01/08/2023 12:38 PM [facility] Blood BLOOD SPECIMEN / Unknown Venipuncture / Unknown 01/08/2023 12:02 PM CDT 01/08/2023 12:13 PM [facility] us Joao PALOMINO-Venkatesh LAB - CHEMISTRY OR DERABLES Final Result [facility] [address] [place] [id number], [facility] [phone] * HEPATITIS C AB SCREEN RFLX NAAT QUANT (11/04/2022 4:26 AM [facility]) Hepatitis C Antibody Non-react kinjal Non-reac tive 11/04/2022 6:27 AM [facility] Comment:Hepatitis C Antibody screen indicates no [...] 11/04/2022 5:44 AM CDT us Daryl Nicolas APRN-RITUAL CIRCUMCISER LAB - CHEMISTRY ORDERABL ES Final Result Performing Organization Address [facility]/ZIP Co de Phone Number [facility] [address] [place] [phone], [facility] [phone] * (ABNORMAL) HEMOGLOBIN A1C (10/29/2022 5:42 AM CDT) Hemoglobin A1c 6.9(H) <=5.6 % 10/30/2022 1:24 PM CDT [facility] Estimated Average Glucose 151 mg/dL 10/30/2022 1:24 PM CDT [facility] Comment: HbA1c Interpretation: Normal : < 5.7% Pre-diabetes: 5.7-6.4% Diabetes: Equal to or greater than 6.5% Test results diagnostic of diabetes should be repeated for confirmation. Treatment target values recommended by ADA and other clinical organizations should be used to evaluate metabolic control in patients. Reference: [place] Diabetes Association, Standards of Care in Diabetes [...] CHEMISTRY ORDERABLES Final Result Performing Organization Address City/[facility]/ZIP Co de Phone Number [facility] [address] [place] [address], [place] [phone] * (ABNORMAL) MICROALB/CREAT RATIO URINE RANDOM PANEL (05/17/2022 9:16 PM MEDICAL PAYMENT POSTER) Creatinine Urine 83.67 mg/dL 05/17/20 9:55 PM MEDICAL PAYMENT POSTER [facility] Microalbumin Urine 13.8 mg/dL 05/17/2022 9:55 PM MEDICAL PAYMENT POSTER [facility] Microalbumin/Crea tinine Ratio 164(H) <30 mg/g 05/17/2022 9:55 PM MEDICAL PAYMENT POSTER [facility] Urine URINE SPECIMEN OBTAINED BY CLEAN CATCH PROCEDURE / Unknown Collection / Unknown 05/17/2022 9:16 PM MEDICAL PAYMENT POSTER 05/17/2022 9:35 PM MEDICAL PAYMENT POSTER us Trinidad Mckenzie MD LAB - URINE CHEMISTRY ORDERABLES Final Result [facility] [address] [place], [place] [id number] from Last 3 Months or Most Recently [...] 4:13 PM 09/03/2014 6:45 PM Care Teams Hanger Relationship Specialty Start Date End Date Redd De Anda MD [address] [place], [place] [phone] PCP - General Internal Medicine 05/11/22 Eliceo Templeton RN Detonator Maker 10/22/13 GideonCasie Celeste RN Registered Nurse 09/28/16
--- NOTE | 2025-01-21 11:44 | ED.ABDPAIN ---
HPI - Abdominal Pain General Chief Complaint: Abdominal Pain Stated Complaint: abd pain, SBO in October, chest pain Time Seen by Provider: 01/21/25 11:23 Source: patient Mode of arrival: ambulatory Limitations: no limitations History of Present Illness HPI narrative: This is a 74 year old male that presents to the ER for upper abdominal pain. Ongoing since earlier this morning. Reports associated nausea and vomiting. Reports an episode of diarrhea today. Reports the pain radiates to his chest. Denies fevers. Related Data Home Medications ?Medication ?Instructions ?Recorded ?Confirmed ?Last Taken ?Type atorvastatin 40 mg tablet 40 mg PO DAILY 08/03/22 11/24/24 11/22/24 History multivitamin with minerals-folic 1 tablet PO DAILY 08/03/22 11/24/24 Unknown History acid 0.4 mg tablet pantoprazole 40 mg tablet,delayed 40 mg PO DAILY 08/03/22 11/24/24 Unknown History release zonisamide 100 mg capsule 200 mg PO HS 09/21/22 11/24/24 Unknown History lacosamide 100 mg tablet 100 mg PO DAILY 01/17/23 11/24/24 Unknown History pregabalin 150 mg capsule 150 mg PO QAM 09/12/23 11/24/24 11/23/24 History levetiracetam 500 mg tablet 1,000 mg PO HS 11/24/24 11/24/24 11/23/24 History (Renee) Allergies Allergy/AdvReac Type Severity Reaction Status Date / Time codeine AdvReac Unknown Hyperactive Verified 11/24/24 14:34 empagliflozin (From AdvReac Unknown Other Verified 11/24/24 14:34 Jardiance) Review of Systems Review of Systems: All systems reviewed & are unremarkable except as noted in HPI and below PMFSH Past Medical History Medical History Neuropathy Hyperlipidemia DM2 (diabetes mellitus, type 2) Occult blood in stools Colon polyp Brain tumor History of seizure disorder Anemia Diabetes Hypertension Surgical History Surgical History H/O colonoscopy with polypectomy L4 through S1 on November 02, 2022 History of back surgery History of brain surgery Hx of total knee arthroplasty Bilaterally Family History Family History Unknown No problems noted. Social History Social History Social History: The patient lives home alone and has 2 children. 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 Code status full code. Smoking status: Never smoker Alcohol intake: never Substance use: never Other substance usage details: CBD Gummies Do You Feel Safe in your Home?: Yes Lack of Transportation: No Lack of Food: Never True Current Housing: I Have Housing Concerned About Future Housing: No Difficulty Paying Gas/Electric Bills: No Difficulty Paying for Meds: No Currently Unemployed: No Education: High School Diploma/GED Difficulty w/ Childcare or Family Care: No Living arrangements: with family Spiritual care concerns: No Exam Narrative: GENERAL: Well-appearing, well-nourished, and in no acute distress. HEAD: Normocephalic, atraumatic. EYES: EOMI. ENT: Nares clear, no rhinorrhea or epistaxis. Mucous membranes moist. CHEST: Clear to auscultation. No respiratory distress. No wheezes rales or rhonchi HEART: Regular rate and rhythm. No murmur heard. Normal peripheral pulses. ABDOMEN: Soft, nondistended, normal active bowel sounds. Tender to palpation in the epigastrium, without guarding EXTREMITIES: Normal range of motion. No edema. SKIN: Warm, dry, no rash. NEURO: No focal deficits. Alert and oriented x3. PSYCH: Normal mood and affect Course Course Emergency Course: patient updated on his workup and need for admission Consultations Consultation #1: General surgery is consulted, came to the ER to evaluate patient. Would like NG tube placed, patient started on IV antibiotics Date: 01/21/25 Consultation #2: Spoke with hospitalist about patient and workup who accepts admission Date: 01/21/25 Vital Signs Vital signs: Vital Signs Temperature 97.6 F 01/21/25 10:56 Pulse Rate 94 01/21/25 10:56 Respiratory Rate 17 01/21/25 10:56 Blood Pressure 125/70 01/21/25 10:56 Pulse Oximetry 95 01/21/25 10:56 Oxygen Delivery Room Air 01/21/25 10:56 Temperature 97.6 F 01/21/25 10:56 Pulse Rate 88 01/21/25 13:38 Respiratory Rate 13 01/21/25 13:38 Blood Pressure 145/72 H 01/21/25 13:38 Pulse Oximetry 99 01/21/25 13:38 Oxygen Delivery Room Air 01/21/25 10:56 MDM - Abdominal Pain MDM Narrative Medical decision making narrative: Patient presents to the emergency department for abdominal pain, vomiting. History of previous small-bowel obstruction. Patient is afebrile and nontoxic appearing. His vitals are stable. CBC with mild leukocytosis to 10.8. Metabolic panel without concerning findings. Baseline troponin is negative. CTA chest/abdomen/pelvis obtained for further evaluation. This shows dilated small bowel loops in the right abdomen and pelvis with a small amount of fluid surrounding and fat stranding. Findings are concerning for partial small-bowel obstruction. Few small to moderate size ground-glass opacities scattered throughout the lungs. Patient is not endorsing a cough at this time. Mild splenomegaly. Patient was updated on his workup and need for admission. General surgery is consulted, came to the ER to evaluate patient. Would like NG tube placed, patient started on IV antibiotics. Spoke with hospitalist about patient and workup who accepts admission Differential Diagnosis Differential diagnosis: Likely abdominal pain, gastroenteritis and small bowel obstruction Lab Data Attestation: I reviewed the patient's lab results. 01/21/25 12:00 01/21/25 12:00 Labs: Lab Results 01/21/25 Range/Units 12:00 WBC 10.8 H (4.5-10.0) K/mm3 RBC 6.33 H (4.6-6.20) M/mm3 Hgb 17.6 (14.0-18.0) g/dL Hct 54.4 H (42.0-52.0) % MCV 85.9 (80-100) fl MCH 27.8 (26-34) pg MCHC 32.4 (32-36) g/dl RDW 14.6 H (11.5-14.5) % Plt Count 110 L (150-375) k/mm3 MPV 12.2 H (7.4-10.4) fl Immature Gran % (Auto) 0.4 (0-0.5) % Neut % (Auto) 80.2 H (45.5-73.1) % Lymph % (Auto) 11.2 L (18.3-44.2) % Shawnee % (Auto) 7.0 (2.6-8.5) % Eos % (Auto) 0.6 (0-4.4) % Baso % (Auto) 0.6 (0.2-1.2) % Lymph # (Auto) 1.21 (0.9-3.2) K/mm3 Shawnee # (Auto) 0.8 H (0.1-0.6) K/mm3 Eos # (Auto) 0.1 (0-0.3) K/mm3 Baso # (Auto) 0.1 (0.0-0.1) K/mm3 Abs Immat Gran (auto) 0.04 H (0.00-0.031) K/mm3 Absolute Neuts (auto) 8.7 H (1.3-6.7) K/mm3 Absolute Nucleated RBC 0.000 (0.0-0.012) K/mm3 Nucleated RBC % 0.0 (0.0-0.2) % % Immature Plt Fraction 8.7 (0.9-11.2) % PT 13.7 (11.1-14.7) Seconds INR 1.1 APTT 37.0 H (22.3-36.8) Seconds Sodium 140 (137-145) mmol/L Potassium 4.9 (3.4-5.0) mmol/L Chloride 109 H (98-107) mmol/L Carbon Dioxide 19 L (22-30) mmol/L Anion Gap 12 (4-12) mmol/L BUN 27 H D (9-20) mg/dL Creatinine 1.28 (0.7-1.3) mg/dL Estim Creat Clear Calc 52 ml/min Estimated GFR 55 L (59 - ) Glucose 227 H (65-110) mg/dL Calcium 9.2 (8.4-10.2) mg/dL Total Bilirubin 0.8 (0.2-1.3) mg/dL AST 34 (17-59) U/L ALT 23 (6-50) U/L Alkaline Phosphatase 81 (38-126) U/L Troponin I < 0.012 (0.000-0.034) ng/mL Total Protein 8.0 (6.3-8.2) g/dL Albumin 4.6 (3.5-5.1) g/dL Lipase 86 (23-300) U/L Urine Color Dark yellow (Yellow) Urine Appearance Clear (Clear) Urine pH 5.5 (5.0-9.0) Ur Specific Bandy 1.027 (1.001-1.035) Urine Protein 2+ H (Negative) mg/dL Urine Glucose (UA) Negative (Negative) mg/dL Urine Ketones Trace H (Negative) mg/dL Ur Blood (Man) Negative (Negative) Urine Nitrate Negative (Negative) Urine Bilirubin Negative (Negative) Urine Urobilinogen 1.0 (<2.0) mg/dL Leukocyte Esterase Rfl Negative (Negative) PILI/UL Urine RBC 0-2 (0-2) /hpf Urine WBC 0-5 (0-3) /hpf Ur Squamous Epith Cells Occasional (Few) /hpf Urine Bacteria None seen /hpf Urine Casts 0-2 Imaging Data Radiologist's impression: ITS Impressions Chest X-Ray 01/21/25 11:48 IMPRESSION: 1: NO ACUTE CARDIOPULMONARY DISEASE. Chest/Abdomen/Pelvis CTA 01/21/25 12:55 IMPRESSION: 1. There are a few dilated small bowel loops in the right abdomen and pelvis with a small amount of fluid and surrounding fat stranding. The finding are concerning for at least a partial small bowel obstruction. Follow-up is recommended. 2. There are a few small to moderate-sized groundglass opacity scattered throughout both lungs most prominent in the right upper lobe posteriorly. Differential includes but is not limited to edema, pneumonia or hypersensitivity pneumonitis. Recommend follow-up to resolution. A follow-up chest CT in 2-4 weeks is recommended to assess for interval clearance. 3. Concentric thickening of the howard of the mildly distended bladder. Differential includes incomplete bladder wall distention versus cystitis. 4. Mild splenomegaly. ECG Data EKG #1: ECG completion date: 01/21/25 tachycardia, sinus rhythm, normal QT and no acute changes (compared to EKG 11/25/24) Critical Care Time Critical Care Time Critical Care Time: No Discharge Plan Discharge Clinical Impression: Partial small bowel obstruction Patient Disposition: Still a Patient Condition: Stable
[2025-01-21] MEDS: MORPHINE SULFATE (*CRX) 4 MG/ML INJ IV PUSH ×2 (11:58→16:19)
[2025-01-21] MEDS: FAMOTIDINE 20 MG/2 ML VIAL IV PUSH (11:58)
[2025-01-21] MEDS: ONDANSETRON INJ 4 MG/2 ML VIAL IV PUSH (11:59)
--- OUTSIDE RECORDS SUMMARY | 2025-01-21 12:04 | XMS_ITS | Clinical Summary ---
Author Organization [facility] Address [address] [place] [address] Care Team Providers Care Optic Fibre Drawer Name Role Phone Eliceo Templeton RN Unavailable [phone] Casie Pruett RN Unavailable Unava ilable Redd De Anda MD Primary Care Provider [phone] Source Comments [facility],non-owned Affiliates and Associated Physician Practices is amultiple site organization consisting of ambulatory clinics and hospital sitesin [place] and [place]. This disclosure is being madepursuant to the Care Everywhere program and may not contain all information available regarding this patient. Last updated 18.[facility] Allergies Active Allergy Reactions Criticality Noted Date Comments Codeine 02/21/2010 Gets really hyper Empagliflozin ECOMMERCE MARKETING SPECIALIST Dysfunction 05/14/2022 Euglycemic dka Medications * Be [...] and heating? Not hard at all 10/28/2022 [facility] of Occupat ional Health - Occupational Stress [...] place to sleep or slept in a mcfp (including now)? No 10/28/2022 Sex and Gender Information Value Date Recorded Sex Assigned at Male 02/15/2022 2:37 PM CDT Legal Sex Male 5:30 AM WATER TREATMENT PLANT SUPERVISOR Gender Identity Not on file Sexual Orientation [...] this topic Medical Devices Implanted Type Area Synoptic Meteorologist Device Identifier Shelf Expiration Date Model / Serial / Lot Cmnt Bone Co Hv 40gm Implanted:Qty: 2 on 09/27/2016 by Enmanuel Cerrato MD at [facility] Right: [employer] 05/27/2018 [id number] / / [id number] Cruciate Retaining Legion Nonporous Femoral Component Implanted:Qty: 1 on 09/27/2016 by Enmanuel Cerrato MD at [facility] Right: Knee [employer] 05/09/2025 [id number] / / [id number] Description:Note: explanted 1 x existing screw. Disposition: trash. Onelia 11 Right Non Porous Tibial Baseplate Implanted:Qty: 1 on 09/27/2016 by Enmanuel Cerrato MD at [facility] Right: Knee [employer] 03/11/2026 [id number] / / [id number] Resurfacing Round Patellar Component Implanted:Qty: 1 on 09/27/2016 by Enmanuel Cerrato MD at [facility] Right: Knee [employer] 01/21/2026 [id number] / / [id number] High Flexion Articular Insert Implanted:Qty: 1 on 09/27/2016 by Enmanuel Cerrato MD at [facility] Right: Knee [employer] 07/02/2025 [id number] / / [id number] George Shai Tib Uncem Fem Implanted:Qty: 1 on 09/27/2016 by Enmanuel Cerrato MD at [facility] BILL ONLY SHAI TIB UNCEM FEM SNORTHO / / Procedures Procedure Name Priority Date/Time Associated Diagnosis Comments COMPREHENSIVE METABOLIC PANEL STAT 01/08/2023 12:02 PM CDT HEPATITIS C AB SCREEN RFLX NAAT QUANT AM Draw 11/04/2022 4:26 AM CDT HEMOGLOBIN A1C Routine 10/29/2022 5:42 AM CDT MICROALB/CREAT RATIO URINE RANDOM PANEL Routine 05/17/2022 9:16 PM WATER TREATMENT PLANT SUPERVISOR from Last 3 Months or Most Recently Relevant to Health Maintenance Results * (ABNORMAL) COMPREHENSIVE METABOLIC PANEL (01/08/2023 12:02 PM CDT) BUN 15 7 - 26 mg/dL 01/08/2023 12:38 PM [facility] Creatinine 0.72 0.71 - 1.16 mg/dL 01/08/2023 12:38 PM [facility] Sodium 140 136 - 145 mmol/L 01/08/2023 12:38 PM [facility] Potassium 4.1 3.5 - 4.5 mmol/L 01/08/2023 12:38 PM [facility] Chloride 110(H) 98 - 107 mmol/L 01/08/2023 12:38 PM [facility] CO2 21(L) 22 - 29 mmol/L 01/08/2023 12:38 PM [facility] Glucose 171(H) 70 - 115 mg/dL 01/08/2023 12:38 PM [facility] Calcium 9.3 8.4 - 10.2 mg/dL 01/08/2023 12:38 PM [facility] Protein Total 7.3 6.0 - 8.3 g/dL 01/08/2023 12:38 PM [facility] Albumin 4.0 3.4 - 5.0 g/dL 01/08/2023 12:38 PM [facility] Bilirubin Total 0.3 0.2 - 1.2 mg/dL 01/08/2023 12:38 PM [facility] Alkaline Phosphatase 85 40 - 150 U/L 01/08/2023 12:38 PM [facility] ALT 15 5 - 55 U/L 01/08/2023 12:38 PM [facility] AST 21 5 - 34 U/L 01/08/2023 12:38 PM [facility] Anion Gap 13 8 - 18 01/08/2023 12:38 PM [facility] BUN/Creatinine Ratio 21 7 - 23 01/08/2023 12:38 PM [facility] Osmolality Calculated 295 270 - 300 mOsm/kg 01/08/2023 12:38 PM [facility] Albumin/Globulin Ratio 1.2 1.1 - 2.3 01/08/2023 12:38 PM [facility] eGFR by CKD-EPI >90 >=90 mL/min/1.7 3 m2 01/08/2023 12:38 PM [facility] Blood BLOOD SPECIMEN / Unknown Venipuncture / Unknown 01/08/2023 12:02 PM CDT 01/08/2023 12:13 PM [facility] us Joao PALOMINO-Venkatesh LAB - CHEMISTRY OR DERABLES Final Result [facility] [address] [place] [phone], [facility] [phone] * HEPATITIS C AB SCREEN RFLX NAAT QUANT (11/04/2022 4:26 AM [facility]) Hepatitis C Antibody Non-react kinjal Non-reac tive 11/04/2022 6:27 AM [facility] Comment:Hepatitis C Antibody screen indicates no [...] 11/04/2022 5:44 AM CDT us Daryl Nicolas APRN-WAGON DRIVER LAB - CHEMISTRY ORDERABL ES Final Result Performing Organization Address [facility]/ZIP Co de Phone Number [facility] [address] [place] [phone], [facility] [phone] * (ABNORMAL) HEMOGLOBIN A1C (10/29/2022 5:42 AM CDT) Hemoglobin A1c 6.9(H) <=5.6 % 10/30/2022 1:24 PM CDT [facility] Estimated Average Glucose 151 mg/dL 10/30/2022 1:24 PM CDT [facility] Comment: HbA1c Interpretation: Normal : < 5.7% Pre-diabetes: 5.7-6.4% Diabetes: Equal to or greater than 6.5% Test results diagnostic of diabetes should be repeated for confirmation. Treatment target values recommended by ADA and other clinical organizations should be used to evaluate metabolic control in patients. Reference: [place] Diabetes Association, Standards of Care in Diabetes [...] CHEMISTRY ORDERABLES Final Result Performing Organization Address City/[facility]/ZIP Co de Phone Number [facility] [address] [place] [address], [place] [phone] * (ABNORMAL) MICROALB/CREAT RATIO URINE RANDOM PANEL (05/17/2022 9:16 PM WATER TREATMENT PLANT SUPERVISOR) Creatinine Urine 83.67 mg/dL 05/17/20 9:55 PM WATER TREATMENT PLANT SUPERVISOR [facility] Microalbumin Urine 13.8 mg/dL 05/17/2022 9:55 PM WATER TREATMENT PLANT SUPERVISOR [facility] Microalbumin/Crea tinine Ratio 164(H) <30 mg/g 05/17/2022 9:55 PM WATER TREATMENT PLANT SUPERVISOR [facility] Urine URINE SPECIMEN OBTAINED BY CLEAN CATCH PROCEDURE / Unknown Collection / Unknown 05/17/2022 9:16 PM WATER TREATMENT PLANT SUPERVISOR 05/17/2022 9:35 PM WATER TREATMENT PLANT SUPERVISOR us Trinidad Mckenzie MD LAB - URINE CHEMISTRY ORDERABLES Final Result [facility] [address] [place], [place] [id number] from Last 3 Months or Most Recently [...] 4:13 PM 09/03/2014 6:45 PM Care Teams Optic Fibre Drawer Relationship Specialty Start Date End Date Redd De Anda MD [address] [place], [place] [id number] PCP - General Internal Medicine 05/11/22 Eliceo Templeton RN Contact Printer Dry Film 10/22/13 GideonCasie Celeste RN Registered Nurse 09/28/16
--- OUTSIDE RECORDS SUMMARY | 2025-01-21 12:04 | XMS_ITS | Encounter Summary ---
Author Organization [facility] Address [address] [place] [address] Care Team Providers Care Senior Account Clerk Name Role Phone Eliceo Templeton RN Unavailable [phone] Casie Pruett RN Unavailable Unava ilable Redd De Anda MD Primary Care Provider Reason for Visit * Reason Comments Refill Request Encounter Details Date Type Department Care Team (Late st Contact Info) Description 09/21/2022 Refill [facility] - [facility]oped[facility] [address] [place] [address] Abhijeet Gallego MD [address] 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
--- OUTSIDE RECORDS SUMMARY | 2025-01-21 12:04 | XMS_ITS | Clinical Summary ---
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 Gender Identity Not on file Sexual [...] st Contact Info) Description 07/14/2025 2:45 PM BAND RIPSAW OPERATOR Office Visit [facility] and Hematology - [place] [address] [place] [address] Rey Reyna MD [address] [place] [address] Health Maintenance Due Date Last [...] history exists Medical Devices Implanted Type Area Risk Compliance Manager Device Identifier Shelf Expiration Date Model / Serial / Lot Knee Knee Insurance [facility] Advance Directives For more information, please contact: [phone] * Full Code (Latest Code Status on File) Date Activated Date Inactivated Comments 10/16/2018 12:47 AM 10/17/2018 4:54 PM * Full Code Date Activated Date Inactivated Comments 01/27/2014 8:03 AM 01/27/2014 12:09 PM * Full Code Date Activated Date Inactivated Comments 01/27/2014 7:45 AM 01/27/2014 8:03 AM Care Teams National Sales Relationship Specialty Start Date End Date Redd De Anda MD [address] [place] [address] PCP - General Internal Medicine 03/27/23
--- OUTSIDE RECORDS SUMMARY | 2025-01-21 12:04 | XMS_ITS | Clinical Summary ---
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 Continue [...] 08/29/2017 Assessment & Plan (07/23/2024 10:56 AM HULL INSPECTOR): Essential tremor symptoms remained stable. Continue zonisamide 200 mg at bedtime. Transient ischemic attack (TIA) 08/29/2017 Abdominal pain, LLQ (left lower quadrant) 2013 Splenomegaly 04/04/2014 DM (diabetes mellitus) type II controlled, neurological manifestation 10/22/2013 Need for prophylactic vaccin ation and inoculation against influenza 03/06/2013 Seizure 02/12/2013 Overview (08/30/2016): Seizure Assessment & Plan (07/23/2024 10:52 AM HULL INSPECTOR): The patient remains seizure-free on his current medications. Continue lacosamide 100 mg Continue Keppra a 1000 mg in the morning and 1500 mg in the p.m.. He is also on Lyrica and zonisamide which can also help treat seizures. Assessment & Plan (04/22/2024 8:17 AM HULL INSPECTOR): The patient has on multiple seizure medications [...] on file Legal Sex Male 3:24 PM HULL INSPECTOR Gender Identity Not on file Sexual Orientation Not on file Obstetrics History Last Filed Vital Signs Vital Sign Reading Time Taken Comments Blood Pressure 155/79 07/23/2024 10:19 AM HULL INSPECTOR Pulse 85 10/29/2023 2:38 PM CDT Temperature 36.4 C (97.5 F) 10/09/2023 9:45 AM CDT Respiratory Rate 10/29/2023 2:38 PM CDT Oxygen Saturation 97% 10/29/2023 2:38 PM CDT Inhaled Oxygen Concentration - - Weight 101.6 kg (224 lb) 07/23/2024 10:19 AM HULL INSPECTOR Height 175.3 cm (5' 9) 07/23/2024 10:19 AM HULL INSPECTOR Body Mass Index 33.08 07/23/2024 10:19 AM HULL INSPECTOR Plan of Treatment Health Maintenance Due Date [...] PPO [employer] CHOICE MEDICARE PPO Care Teams Wire Rigger Relationship Specialty Start Date End Date Redd De Anda MD PCP - General Internal Medicine 06/16/22
[2025-01-21 12:09] LABS: Hematocrit 54.4 % (42.0-52.0); Hemoglobin 17.6 g/dL (14.0-18.0); Immature Granulocyte Percent A 0.4 % (0-0.5); Immature Platelet Fraction Pct 8.7 % (0.9-11.2); Lymphocytes Absolute Auto 1.21 K/mm3 (0.9-3.2); Mean Corpuscular HGB Conc 32.4 g/dl (32-36); Mean Corpuscular Hemoglobin 27.8 pg (26-34); Mean Corpuscular Volume 85.9 fl (80-100); Nucleated Red Blood Cells Absolute Auto 0.000 K/mm3 (0.0-0.012); Nucleated Red Blood Cells Perc 0.0 % (0.0-0.2); Platelet Count Result 110 k/mm3 (150-375); Red Blood Count 6.33 M/mm3 (4.6-6.20); White Blood Count 10.8 K/mm3 (4.5-10.0)
[2025-01-21 12:12] LABS: Add Urine Microscopic? YES; Appearance Urine Clear (Clear); Glucose Urine UA Negative (Negative); Leukocyte Esterase Ur Negative LEU/UL (Negative); Nitrate Urine Negative (Negative); Non Pathogenic Casts 0-2; Specific Grav Ur 1.027 (1.001-1.035)
[2025-01-21 12:22] LABS: Alanine Aminotransferase 23 U/L (6-50); Albumin Level 4.6 g/dL (3.5-5.1); Alkaline Phosphatase 81 U/L (38-126); Anion Gap 12 mmol/L (4-12); Aspartate Amino Transferase 34 U/L (17-59); Bilirubin,Total 0.8 mg/dL (0.2-1.3); Blood Urea Nitrogen 27 mg/dL (9-20); Calcium 9.2 mg/dL (8.4-10.2); Carbon Dioxide 19 mmol/L (22-30); Chloride 109 mmol/L (98-107); Estimated CRCL calculation 52 ml/min; Estimated Glomerular Filt Rate 55; Glucose 227 mg/dL (65-110); Lipase 86 U/L (23-300); Potassium 4.9 mmol/L (3.4-5.0); Sodium 140 mmol/L (137-145); Total Protein 8.0 g/dL (6.3-8.2)
[2025-01-21 12:33] LABS: Troponin I < 0.012 ng/mL (0.000-0.034)
[2025-01-21 12:38] LABS: INR 1.1; Prothrombin Time 13.7 Seconds (11.1-14.7)
[2025-01-21 12:39] LABS: Partial Thromboplastin Time 37.0 Seconds (22.3-36.8)
[2025-01-21] MEDS: SODIUM CHLORIDE 0.9% IV 500 ML 999 ML IV CONT (13:08)
[2025-01-21 15:47] LABS: Troponin I < 0.012 ng/mL (0.000-0.034)
--- NOTE | 2025-01-21 15:56 | PM.CNGS ---
Assessment and Plan Assessment and plan (1) SBO (small bowel obstruction): Code(s): K56.609 - Unspecified intestinal obstruction, unspecified as to partial versus complete obstruction Status: Acute Assessment and Plan: Patient presented to the ED this morning with epigastric pain that started earlier in the morning around 3 am. He tried eating breakfast this morning, but immediately had an episode of emesis. This is his 4th episode since he was last admitted for SBO that was resolved with NG tube decompression. All other episodes were able to be managed at home. CT scan demonstrated a few dilated small bowel loops in the right abdomen and pelvis with a small amount of fluid and surrounding fat stranding. WBC 10.8. The findings are concerning for at least a partial small bowel obstruction. NG tube placed. Continue decompression. NPO. Continue IV antibiotics. Will follow with serial abdominal exams and labs. Will consider small bowel series for tomorrow. 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 Differential includes but is not limited to edema, pneumonia or hypersensitivity pneumonitis. Recommend follow-up to resolution. A follow-up chest CT in 2-4 weeks is recommended to assess for interval clearance. Follow up with primary physician. Plan Discussed patient's case and plan of care with Dr. Peoples. History of Present Illness Consult details Consult date: 01/21/25 Reason for consult: other (Partial small-bowel obstruction) Requesting physician: Emily Francis PA-C Narrative: Patient is 74-year-old male with history of small-bowel obstruction, hyperlipidemia, type 2 diabetes mellitus hypertension who we have been asked to see in surgical consultation for partial small-bowel obstruction. Patient is well known to the service, as he was recently admitted here from 11/24/2024 to 11/30/2024 for partial small bowel obstruction that resolved with NG tube decompression. Since this time patient has had 4 other episodes including this most recent 1 that brought him to the ED. He had seen his PCP for the other episodes, and was able to manage them without any other medical treatment. Patient states that with this most recent episode the abdominal pain began around 3:00 a.m. When asked where pain is, he points to epigastric region. He tried to eat some yogurt and drink some coffee this morning but immediately had an episode of emesis, thus prompting him to present to the ED. upon admission, labs demonstrated white blood cell count of 10.8. Chest x-ray was performed and demonstrated no acute cardiopulmonary disease. CTA of the chest abdomen pelvis was obtained and showed a few small dilated loops of bowel in the right abdomen and pelvis with a small amount of fluid in surrounding fat stranding. Findings concerning for at least a partial small bowel obstruction. Also noted were a few small to moderate-sized ground-glass opacities throughout both lungs with the differential including edema, pneumonia or hypersensitivity pneumonitis.. He did have some diarrhea while in the ED this morning, but states that he is not passing gas. He states his stomach ?feels like it has rocks in it?. Patient has history of appendectomy, cholecystectomy, umbilical hernia repair. Per chart review, patient's last colonoscopy was in 2022 and multiple polyps were removed. He was recommended to get next colonoscopy in 5 years. [facility] Past Medical History Medical History Neuropathy Hyperlipidemia DM2 (diabetes mellitus, type 2) Occult blood in stools Colon polyp Brain tumor History of seizure disorder Anemia Diabetes Hypertension Surgical History Surgical History H/O colonoscopy with polypectomy L4 through S1 on November 02, 2022 History of back surgery History of brain surgery Hx of total knee arthroplasty Bilaterally Family History Family History Unknown No problems noted. Social History Social History Social History: The patient lives home alone and has 2 children. 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 Code status full code. Smoking status: Never smoker Alcohol intake: never Substance use: never Other substance usage details: CBD Gummies Do You Feel Safe in your Home?: Yes Lack of Transportation: No Lack of Food: Never True Current Housing: I Have Housing Concerned About Future Housing: No Difficulty Paying Gas/Electric Bills: No Difficulty Paying for Meds: No Currently Unemployed: No Education: High School Diploma/GED Difficulty w/ Childcare or Family Care: No Living arrangements: with family Spiritual care concerns: No Meds Home Medications and Allergies Home Medications ?Medication ?Instructions ?Recorded ?Confirmed ?Type atorvastatin 40 mg tablet 40 mg PO DAILY 08/03/22 11/24/24 History multivitamin with minerals-folic 1 tablet PO DAILY 08/03/22 11/24/24 History acid 0.4 mg tablet pantoprazole 40 mg tablet,delayed 40 mg PO DAILY 08/03/22 11/24/24 History release zonisamide 100 mg capsule 200 mg PO HS 09/21/22 11/24/24 History lacosamide 100 mg tablet 100 mg PO DAILY 01/17/23 11/24/24 History levetiracetam 500 mg tablet 1,000 mg (2 x 500 mg) PO QAM #30 01/19/23 11/24/24 Rx (Keppra) tabs pregabalin 50 mg capsule (Lyrica) 300 mg (6 x 50 mg) [facility] HS #15 01/19/23 11/24/24 Rx caps pregabalin 150 mg capsule 150 mg PO QAM 09/12/23 11/24/24 History levetiracetam 500 mg tablet 1,000 mg PO HS 11/24/24 11/24/24 History (Keppra) insulin aspart U-100 100 unit/mL 5 unit (0.05 mL) subcut TIDWMEAL 11/30/24 11/24/24 Rx (3 mL) subcutaneous pen (Novolog #10 mL FlexPen U-100 Insulin aspart) insulin glargine 100 unit/mL (3 25 unit (0.25 mL) subcut DAILY #10 11/30/24 11/24/24 Rx mL) subcutaneous pen (Lantus mL Solostar U-100 Insulin) losartan 25 mg tablet 25 mg PO DAILY #30 tabs 11/30/24 Rx Allergies Allergy/AdvReac Type Severity Reaction Status Date / Time codeine AdvReac Unknown Hyperactive Verified 11/24/24 14:34 empagliflozin (From AdvReac Unknown Other Verified 11/24/24 14:34 Jardiance) Vital Signs Vital Signs - 24 hr 01/21/25 10:56 01/21/25 13:38 Temperature 97.6 F Pulse Rate 94 88 Respiratory Rate 17 13 Blood Pressure 125/70 145/72 H Pulse Oximetry 95 99 Oxygen Delivery Room Air Exam Const: General: comfortable and no acute distress Eyes: General: appearance normal, both eyes and all related structures Neck: Neck: supple Resp: Effort & Inspection: normal respiratory effort Cardio: Rate: regular rate GI: Inspection: distended GI Palp: Yes Firmness to palpation present (GI), Yes Tenderness to palpation present (GI) (Diffusely tender throughout the abdomen) and Yes Guarding due to palpation present (GI) Skin: General skin exam: normal color and no rashes or lesions noted Neuro: Speech: normal speech Sensory Exam: normal sensation Extrem: General: normal to inspection Psych: Mental Status: mental status grossly normal Results Labs 01/21/25 12:00 01/21/25 12:00 Labs: Abnormal lab results 01/21/25 Range/Units 12:00 WBC 10.8 H (4.5-10.0) K/mm3 RBC 6.33 H (4.6-6.20) M/mm3 Hct 54.4 H (42.0-52.0) % RDW 14.6 H (11.5-14.5) % Plt Count 110 L (150-375) k/mm3 MPV 12.2 H (7.4-10.4) fl Neut % (Auto) 80.2 H (45.5-73.1) % Lymph % (Auto) 11.2 L (18.3-44.2) % [place] # (Auto) 0.8 H (0.1-0.6) K/mm3 Abs Immat Gran (auto) 0.04 H (0.00-0.031) K/mm3 Absolute Neuts (auto) 8.7 H (1.3-6.7) K/mm3 APTT 37.0 H (22.3-36.8) Seconds Chloride 109 H (98-107) mmol/L Carbon Dioxide 19 L (22-30) mmol/L BUN 27 H D (9-20) mg/dL Estimated GFR 55 L (59 - ) Glucose 227 H (65-110) mg/dL Urine Protein 2+ H (Negative) mg/dL Urine Ketones Trace H (Negative) mg/dL Diabetes panel 01/21/25 Range/Units 12:00 Sodium 140 (137-145) mmol/L Potassium 4.9 (3.4-5.0) mmol/L Chloride 109 H (98-107) mmol/L Carbon Dioxide 19 L (22-30) mmol/L BUN 27 H D (9-20) mg/dL Creatinine 1.28 (0.7-1.3) mg/dL Glucose 227 H (65-110) mg/dL Calcium 9.2 (8.4-10.2) mg/dL AST 34 (17-59) U/L ALT 23 (6-50) U/L Alkaline Phosphatase 81 (38-126) U/L Total Protein 8.0 (6.3-8.2) g/dL Albumin 4.6 (3.5-5.1) g/dL Calcium panel 01/21/25 Range/Units 12:00 Calcium 9.2 (8.4-10.2) mg/dL Albumin 4.6 (3.5-5.1) g/dL Pituitary panel 01/21/25 Range/Units 12:00 Sodium 140 (137-145) mmol/L Potassium 4.9 (3.4-5.0) mmol/L Chloride 109 H (98-107) mmol/L Carbon Dioxide 19 L (22-30) mmol/L BUN 27 H D (9-20) mg/dL Creatinine 1.28 (0.7-1.3) mg/dL Glucose 227 H (65-110) mg/dL Calcium 9.2 (8.4-10.2) mg/dL Adrenal panel 01/21/25 Range/Units 12:00 Sodium 140 (137-145) mmol/L Potassium 4.9 (3.4-5.0) mmol/L Chloride 109 H (98-107) mmol/L Carbon Dioxide 19 L (22-30) mmol/L BUN 27 H D (9-20) mg/dL Creatinine 1.28 (0.7-1.3) mg/dL Glucose 227 H (65-110) mg/dL Calcium 9.2 (8.4-10.2) mg/dL Total Bilirubin 0.8 (0.2-1.3) mg/dL AST 34 (17-59) U/L ALT 23 (6-50) U/L Alkaline Phosphatase 81 (38-126) U/L Total Protein 8.0 (6.3-8.2) g/dL Albumin 4.6 (3.5-5.1) g/dL All other labs normal.
[2025-01-21] MEDS: cefTRIAXone 1 GM in SODIUM CHLORIDE 0.9% IV 50 ML 100 ML IVPB (16:11)
[2025-01-21] MEDS: SODIUM CHLORIDE 0.9% IV 1,000 ML 125 ML IV CONT (16:11)
[2025-01-21] MEDS: metroNIDAZOLE 500 MG/ISO 100ML 500 MG/100 ML BAG 100 MG IVPB (16:12)
--- NOTE | 2025-01-21 17:43 | ADMGEN ---
This patient, Dane Parker, was admitted to [facility] Surg Room 311-01. Patient/family oriented to hospital policies and general routines including ID bracelet, bed and alarms, visiting hours, pain management, procedures, bathroom and other care routines, personal items, smoking policy, room service/diet, and visiting hours. Information on how to activate the Rapid Response Team has been discussed. Patient/Family are encouraged to report perceived risks to care and to ask questions if they do not understand what they are told or what they should do.
--- NOTE | 2025-01-21 18:46 | P.HP_ITS ---
H&P: HPI History of Present Illness Date/Time: 01/21/25 18:46 Chief Complaint: Abdominal pain Narrative: 74-year-old male with past medical history small-bowel obstructions diabetes, neuropathy, hyperlipidemia, brain tumor with history of seizure disorder diabetes, anemia and hypertension, of presents the hospital with abdominal pain. Patient states that his abdominal pain started about 3:00 a.m. this morning. He states that when he breakfast immediately through back up. He states that he has had several bowel obstructions over the last few months. And they been managed with gastric decompression has not needed surgery. Patient states that he did have a very small bowel movement this morning. Denies fevers chills. Lab work shows leukocytosis at 10.8, chloride of 109, carbon dioxide 19, anion gap of 12 BUN of 27, creatinine of 1.28, GFR 55, troponin negative, UA negative for infection, CT chest abdomen pelvis showing dilated bowel loops, ground-glass opacities in the lungs edema versus infection, Concentric thickening of the howard of the mildly distended bladder and splenomegaly Review of Systems Review of Systems: 12 systems were reviewed and are negativ e except for as per HPI. [facility] Past Medical History Medical History Neuropathy Hyperlipidemia DM2 (diabetes mellitus, type 2) Occult blood in stools Colon polyp Brain tumor History of seizure disorder Anemia Diabetes Hypertension Surgical History Surgical History H/O colonoscopy with polypectomy L4 through S1 on November 02, 2022 History of back surgery History of brain surgery Hx of total knee arthroplasty Bilaterally Family History Family History (Updated 01/21/25 @ 17:48 by Eliceo Brush RN) Unknown No problems noted. Sibling Heart valve replaced CHF (congestive heart failure) Sibling Diabetes mellitus Sibling Diabetes mellitus Sibling Diabetes mellitus Mother Diabetes mellitus Grandparent Diabetes mellitus Social History Social History Social History: The patient lives home alone and has 2 children. 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 Code status full code. Smoking status: Never smoker Alcohol intake: never Substance use: never Other substance usage details: CBD Gummies Do You Feel Safe in your Home?: Yes Lack of Transportation: No Lack of Food: Never True Current Housing: I Have Housing Concerned About Future Housing: No Difficulty Paying Gas/Electric Bills: No Difficulty Paying for Meds: No Currently Unemployed: No Education: Decline to Answer Difficulty w/ Childcare or Family Care: No Living arrangements: with family Spiritual care concerns: No Meds Home Medications and Allergies Home Medications ?Medication ?Instructions ?Recorded ?Confirmed ?Type atorvastatin 40 mg tablet 40 mg PO DAILY 08/03/2212/27 History multivitamin with minerals-folic 1 tablet PO DAILY 02/1701/21/25 History acid 0.4 mg tablet pantoprazole 40 mg tablet,delayed 40 mg PO DAILY 08/0301/21/25 History release zonisamide 100 mg capsule 200 mg PO DAILY 09/21/22 History lacosamide 100 mg tablet 100 mg PO DAILY 01/17/23 History levetiracetam 500 mg tablet 1,000 mg (2 x 500 mg) PO Q AM #30 01/19/23 01/21/25 Rx (Keppra) tabs pregabalin 50 mg capsule (Lyrica) 300 mg (6 x 50 mg) [facility] HS #15 01/19/23 01/21/25 Rx caps pregabalin 150 mg capsule 150 mg PO QAM 09/12/2301/21 History levetiracetam 500 mg tablet 1,000 mg PO HS 11/24/24 History (Keppra) fluocinonide 0.05 % topical 1 applic topical PRN 01/2101/21/25 History ointment insulin aspart U-100 100 unit/mL 1 - 15 unit subcut TI DWMEAL 01/21/25 01/21/25 History (3 mL) subcutaneous pen (Novolog FlexPen U-100 Insulin aspart) insulin glargine 100 unit/mL (3 40 unit subcut DAILY 0 01/21/25 01/21/25 History mL) subcutaneous pen (Lantus Solostar U-100 Insulin) Allergies Allergy/AdvReac Type Severity Reaction Status Date / Time codeine AdvReac Unknown Hyperactive Verified 01/21/25 18:01 empagliflozin (From AdvReac Unknown Other Verified 01/21/25 18:01 Jardiance) Vital Signs Vital Signs - 24 hr 01/21/25 10:56 01/21/25 13:38 01/21/25 16:22 Temperature 97.6 F Pulse Rate 94 88 85 Respiratory Rate 17 13 14 Blood Pressure 125/70 145/72 H 154/78 H Pulse Oximetry 95 99 96 Oxygen Delivery Room Air 01/21/25 17:18 Temperature 98.0 F Pulse Rate 81 Respiratory Rate 18 Blood Pressure 121/65 Pulse Oximetry 97 Oxygen Delivery Exam Narrative: General: well appearing, appears stated age. HEENT: normocephalic, atraumatic. Mucous membranes moist. EOMI, PERRLA, bilateral sclera anicteric, no conjunctival injection. Neck supple without JVD, lymphadenopathy, or bruit. NG tube Respiratory: clear to ascultation bilaterally. No rales/rhonic/wheezes. Cardiovascular: Regular rate and rhythm, normal S1-S2 upon ascultation. No murmurs, rubs, or clicks. PMI is nondisplaced, capillary refill less than 3 second. Abdomen: Soft, round, no pulsatile masses, nondistended and nontender. No rebound, no guarding. No CVA tenderness, no hepatosplenomegaly. Bowel sounds present to all four quadrants. No high pitch or tinkling sounds, resonant to percussion. Extremities: No cyanosis, clubbing, or edema present. Pulses are palpable 2/2. Active ROM to all four extremities. Neuro: Alert and orientated x 4. PERRLA. Cranial nerves 2-12 intact without focal deficit. Skin: Warm, dry, and intact, without rash, erythema, or lesion. Psych: pleasant, cooperative, normal speech, normal affect, no hallucinations, no dysarthia H&P: Results Labs Labs: Short CBC 01/21/25 Range/Units 12:00 WBC 10.8 H (4.5-10.0) K/mm3 Hgb 17.6 (14.0-18.0) g/dL Hct 54.4 H (42.0-52.0) % Plt Count 110 L (150-375) k/mm3 BMP 01/21/25 12:00 Sodium 140 Potassium 4.9 Chloride 109 H Carbon Dioxide 19 L BUN 27 H D Creatinine 1.28 Glucose 227 H Calcium 9.2 Cardiac Enzymes 08/27/25 08/27/25 Range/Units 12:00 15:19 Troponin I < 0.012 < 0.012 (0.000-0.034) ng/mL Liver Function 01/21/25 Range/Units 12:00 Total Bilirubin 0.8 (0.2-1.3) mg/dL AST 34 (17-59) U/L ALT 23 (6-50) U/L Alkaline Phosphatase 81 (38-126) U/L Albumin 4.6 (3.5-5.1) g/dL Urine 01/21/25 Range/Units 12:00 Urine Color Dark yellow (Yellow) Urine Appearance Clear (Clear) Urine pH 5.5 (5.0-9.0) Ur Specific [place] 1.027 (1.001-1.035) Urine Protein 2+ H (Negative) mg/dL Urine Glucose (UA) Negative (Negative) mg/dL Assessment and Plan Assessment and plan (1) Partial small bowel obstruction: Code(s): K56.600 - Partial intestinal obstruction, unspecified as to cause Status: Acute Assessment and Plan: Surgery consulted NG tube to low intermittent suction IV fluids for hydration IV Rocephin and Flagyl Blood cultures pending NPO sips with meds (2) Hypertension: Qualifiers: Hypertension type: primary hypertension Qualified Code(s): I10 - Essential (primary) hypertension Code(s): I10 - Essential (primary) hypertension Status: Chronic Assessment and Plan: Patient does not appear to be on antihypertensives Continue to monitor (3) Hyperlipidemia: Qualifiers: Hyperlipidemia type: moderate mixed hyperlipidemia not requiring statin therapy Qualified Code(s): E78.2 - Mixed hyperlipidemia Code(s): E78.5 - Hyperlipidemia, unspecified Status: Acute Assessment and Plan: Continue statin (4) DM2 (diabetes mellitus, type 2): Qualifiers: Diabetes mellitus complication status: without complication Diabetes mellitus buttermaker insulin use: with skilled nursing use Qualified Code(s): E11.9 - Type 2 diabetes mellitus without complications; 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 of 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 Code(s): E11.9 - Type 2 diabetes mellitus without complications Status: Chronic Assessment and Plan: Accu-Cheks q.6 SSI Currently holding Lantus due to NPO (5) Seizures: Code(s): R56.9 - Unspecified convulsions Status: Acute Assessment and Plan: Continue Keppra zonegran and vimpat (6) Splenomegaly: Code(s): R16.1 - Splenomegaly, not elsewhere classified Status: Acute Assessment and Plan: Seen previously on CTs Quality VTE Prophylaxis VTE prophylaxis: mechanical ordered Hospitalist MIPS Advance Care Plan I have confirmed that the patient's Advanced Care Plan is present, code status is documented, or surrogate decision maker is listed in patient medical record.: Yes Medication Reconciliation I have utilized all available resources to obtain, update and review the patients current medications (includes all prescriptions, OTC, herbals, cannabis, and nutritional supplements).: Yes
[2025-01-21] MEDS: PANTOPRAZOLE SODIUM IV 40 MG VIAL IV PUSH (21:10)
[2025-01-21] MEDS: levETIRAcetam 1000MG/NACL100ML 1,000 MG/100 ML BAG 400 MG IVPB (21:16)
[2025-01-21] MEDS: MAG HYDROX/AL HYDROX/SIMETH 30 ML UDC PO (22:46)
[2025-01-22] MEDS: metroNIDAZOLE 500 MG/ISO 100ML 500 MG/100 ML BAG 100 MG IVPB ×4 (00:09→23:45)
[2025-01-22] MEDS: SODIUM CHLORIDE 0.9% IV 1,000 ML 125 ML IV CONT ×2 (03:59→18:15)
[2025-01-22 05:31] VITALS: BP 131/61; PULSE 96; RESP 16; TEMP 36; O2SAT 96
[2025-01-22] MEDS: MAG HYDROX/AL HYDROX/SIMETH 30 ML UDC PO ×2 (05:36→21:12)
[2025-01-22 06:35] LABS: Anion Gap 7 mmol/L (4-12); Blood Urea Nitrogen 23 mg/dL (9-20); Calcium 8.2 mg/dL (8.4-10.2); Carbon Dioxide 23 mmol/L (22-30); Chloride 110 mmol/L (98-107); Estimated CRCL calculation 65 ml/min; Estimated Glomerular Filt Rate > 60; Glucose 136 mg/dL (65-110); Potassium 4.5 mmol/L (3.4-5.0); Sodium 140 mmol/L (137-145)
[2025-01-22] MEDS: levETIRAcetam 1000MG/NACL100ML 1,000 MG/100 ML BAG 400 MG IVPB ×2 (08:14→21:12)
[2025-01-22] MEDS: PREGABALIN (*CRX) 75 MG CAPSULE 150 MG PO (08:17)
[2025-01-22] MEDS: ZONISAMIDE 100 MG CAPSULE 200 MG PO (08:17)
[2025-01-22] MEDS: ENOXAPARIN 40 MG/0.4 ML SYRINGE SUB-Q (08:18)
[2025-01-22] MEDS: LACOSAMIDE (*CRX) 100 MG TABLET PO (08:18)
[2025-01-22] MEDS: PANTOPRAZOLE SODIUM IV 40 MG VIAL IV PUSH (08:18)
[2025-01-22] MEDS: ATORVASTATIN 40 MG TABLET PO (08:18)
[2025-01-22 08:31] LABS: Hematocrit 44.0 % (42.0-52.0); Hemoglobin 13.9 g/dL (14.0-18.0); Immature Platelet Fraction Pct 9.3 % (0.9-11.2); Mean Corpuscular HGB Conc 31.6 g/dl (32-36); Mean Corpuscular Hemoglobin 28.3 pg (26-34); Mean Corpuscular Volume 89.6 fl (80-100); Platelet Count Result 78 k/mm3 (150-375); Red Blood Count 4.91 M/mm3 (4.6-6.20); White Blood Count 6.1 K/mm3 (4.5-10.0)
--- NOTE | 2025-01-22 09:41 | P.PNGS_ITS ---
Progress Note: A&P Assessment and Plan (1) SBO (small bowel obstruction): Code(s): K56.609 - Unspecified intestinal obstruction, unspecified as to partial versus complete obstruction Status: Acute Assessment and Plan: * Recurrent small bowel obstruction currently being treated with NG tube decompression. Showing some signs of improvement overnight and passing some flatus this morning. * Will order a WS small bowel follow through today * Continue NG tube, keep NPO * Discussed with the patient that if there are signs of a high-grade SBO, then he would require surgical exploration (2) Lung abnormality: Code(s): J98.4 - Other disorders of lung Status: Acute Assessment and Plan: * F/u with PCP for repeat chest CT in 2-4 weeks as recommended by Radiologist on initial CT Plan Discussed patient's case and plan of care with Dr. Peoples. Subjective Subjective Date/Time Seen: 01/22/25 09:41 Patient reports: no new complaints, still having pain, flatus and no bowel movement Interval history: Patient complains of cramping generalized abdominal pain. Not much improvement since yesterday. His NG is currently clamped after receiving his home medications this morning. He denies any nausea or vomiting since admission. He had some flatus this morning, no BM yet. Exam Const: General: comfortable and no acute distress GI: Inspection: other (mildly distended) GI Palp: Yes Soft to palpation, Yes Tenderness to palpation present (GI) (mild diffuse tenderness), No Guarding due to palpation present (GI) and No Rebound tenderness present Auscultation: normal bowel sounds Objective Data Vital Signs Vital Signs: Vital Signs - 24 hr 01/21/25 10:56 01/21/25 13:38 01/21/25 16:22 Temperature 97.6 F Pulse Rate 94 88 85 Respiratory Rate 17 13 14 Blood Pressure 125/70 145/72 H 154/78 H Pulse Oximetry 95 99 96 Oxygen Delivery Room Air 01/21/25 17:18 01/21/25 21:00 01/21/25 21:10 Temperature 98.0 F 98.1 F Pulse Rate 81 77 Respiratory Rate 18 18 1 L Blood Pressure 121/65 137/67 Pulse Oximetry 97 97 97 Oxygen Delivery Autopap 01/21/25 23:08 01/22/25 05:31 Temperature 96.8 F L Pulse Rate 96 Respiratory Rate 16 Blood Pressure 131/61 Pulse Oximetry 97 96 Oxygen Delivery Autopap Intake/Output Intake/Output: Intake & Output 01/19/25 01/20/25 01/21/25 01/22/25 23:59 23:59 23:59 23:59 Intake Total 650 1100 Output Total 200 Balance 650 900 Meds/Results Medications: Active Medications Generic Name Dose Route Start Last Admin Trade Name Freq PRN Reason Stop Dose Admin Al Hydrox/Mg Hydrox/Simethicone 30 ml 01/21/25 18:15 01/22/25 05:36 Mag Hydrox/Al Hydrox/Simeth 30 Ml Udc PO 30 ml Q8HR SILVANA Administration Atorvastatin Calcium 40 mg 01/22/25 09:00 01/22/25 08:18 Atorvastatin 40 Mg Tablet PO 40 mg DAILY SILVANA Administration Dextrose 12.5 gm 01/21/25 19:26 Dextrose 50% 25 Gm/50 Ml Syringe IV PUSH PRN PRN Hypoglycemia Protocol Enoxaparin Sodium 40 mg 01/22/25 09:00 01/22/25 08:18 Enoxaparin 40 Mg/0.4 Ml Syringe SUB-Q 40 mg DAILY SILVANA Administration Glucagon 1 mg 01/21/25 19:26 Glucagon For Inj 1 Mg Vial IM PRN PRN Hypoglycemia Protocol Glucose 15 gm 01/21/25 19:26 Glucose Oral Gel 15 Gm Of Glucse In 37.5 Gm Tube PO PRN PRN Hypoglycemia Protocol Sodium Chloride 1,000 mls @ 125 mls/hr 01/21/25 14:45 01/22/25 03:59 Normal Saline Iv IV CONT 125 mls/hr .Q8H SILVANA Administration Ceftriaxone Sodium 1 gm/ 50 mls @ 100 mls/hr 01/22/25 16:00 Sodium Chloride IVPB Q24H SILVANA Metronidazole 500 mg in 100 mls @ 100 mls/hr 01/22/25 00:00 01/22/25 08:32 Flagyl 500 Mg/Iso Soln 100 Ml IVPB 100 mls/hr Q8H SILVANA Administration Levetiracetam 1,000 mg in 100 mls @ 400 mls/hr 01/21/25 21:00 01/22/25 08:14 Keppra Iv IVPB 400 mls/hr Q12HR SILVANA Administration Dextrose 1,000 mls @ 100 mls/hr 01/21/25 19:26 Dextrose 5% 1,000 Ml IVPB PRN PRN Hypoglycemia Protocol Insulin Aspart 2 - 5 units 01/22/25 00:00 01/22/25 00:58 Insulin Aspart (*Bkc) 100 Units/Ml SUB-Q Not Given Q6HR SILVANA Protocol Lacosamide 100 mg 01/22/25 09:00 01/22/25 08:18 Lacosamide (*Crx) 100 Mg Tablet PO 100 mg DAILY SILVANA Administration Pantoprazole Sodium 40 mg 01/22/25 09:00 01/22/25 08:18 Pantoprazole Sodium Iv 40 Mg Vial IV PUSH 40 mg QAM SILVANA Administration Pregabalin 150 mg 01/22/25 09:00 01/22/25 08:17 Pregabalin (*Crx) 75 Mg Capsule PO 150 mg QAM SILVANA Administration Zonisamide 200 mg 01/22/25 09:00 01/22/25 08:17 Zonisamide 100 Mg Capsule PO 200 mg DAILY SILVANA Administration Radiology Results: ITS Impressions Chest X-Ray 01/21/25 11:48 IMPRESSION: 1: NO ACUTE CARDIOPULMONARY DISEASE. Chest/Abdomen/Pelvis CTA 01/21/25 12:55 IMPRESSION: 1. There are a few dilated small bowel loops in the right abdomen and pelvis with a small amount of fluid and surrounding fat stranding. The finding are concerning for at least a partial small bowel obstruction. Follow-up is recommended. 2. There are a few small to moderate-sized groundglass opacity scattered throughout both lungs most prominent in the right upper lobe posteriorly. Differential includes but is not limited to edema, pneumonia or hypersensitivity pneumonitis. Recommend follow-up to resolution. A follow-up chest CT in 2-4 weeks is recommended to assess for interval clearance. 3. Concentric thickening of the howard of the mildly distended bladder. Differential includes incomplete bladder wall distention versus cystitis. 4. Mild splenomegaly. Abdomen X-Ray 01/21/25 16:12 IMPRESSION: 1. Nasogastric tube in expected position with distal tip in proximal side port in the stomach. Labs Labs: Laboratory Results - last 24 hr 01/21/25 01/21/25 01/21/25 12:00 15:19 15:49 WBC 10.8 H RBC 6.33 H Hgb 17.6 Hct 54.4 H MCV 85.9 MCH 27.8 MCHC 32.4 RDW 14.6 H Plt Count 110 L MPV 12.2 H Immature Gran % (Auto) 0.4 Neut % (Auto) 80.2 H Lymph % (Auto) 11.2 L [place] % (Auto) 7.0 Eos % (Auto) 0.6 Baso % (Auto) 0.6 Lymph # (Auto) 1.21 [place] # (Auto) 0.8 H Eos # (Auto) 0.1 Baso # (Auto) 0.1 Abs Immat Gran (auto) 0.04 H Absolute Neuts (auto) 8.7 H Absolute Nucleated RBC 0.000 Nucleated RBC % 0.0 % Immature Plt Fraction 8.7 PT 13.7 INR 1.1 APTT 37.0 H Sodium 140 Potassium 4.9 Chloride 109 H Carbon Dioxide 19 L Anion Gap 12 BUN 27 H D Creatinine 1.28 Estim Creat Clear Calc 52 Estimated GFR 55 L Glucose 227 H POC Capillary Glucose Lactic Acid 1.5 Calcium 9.2 Total Bilirubin 0.8 AST 34 ALT 23 Alkaline Phosphatase 81 Troponin I < 0.012 < 0.012 Total Protein 8.0 Albumin 4.6 Lipase 86 Urine Color Dark yellow Urine Appearance Clear Urine pH 5.5 Ur Specific [place] 1.027 Urine Protein 2+ H Urine Glucose (UA) Negative Urine Ketones Trace H Ur Blood (Man) Negative Urine Nitrate Negative Urine Bilirubin Negative Urine Urobilinogen 1.0 Leukocyte Esterase Rfl Negative Urine RBC 0-2 Urine WBC 0-5 Ur Squamous Epith Cells Occasional Urine Bacteria None seen Urine Casts 0-2 01/21/25 01/22/25 01/22/25 17:25 00:58 05:57 WBC 6.1 RBC 4.91 Hgb 13.9 L D Hct 44.0 MCV 89.6 MCH 28.3 MCHC 31.6 L RDW 14.8 H Plt Count 78 L MPV 12.3 H Immature Gran % (Auto) Neut % (Auto) Lymph % (Auto) [place] % (Auto) Eos % (Auto) Baso % (Auto) Lymph # (Auto) [place] # (Auto) Eos # (Auto) Baso # (Auto) Abs Immat Gran (auto) Absolute Neuts (auto) Absolute Nucleated RBC Nucleated RBC % % Immature Plt Fraction 9.3 PT INR APTT Sodium 140 Potassium 4.5 Chloride 110 H Carbon Dioxide 23 Anion Gap 7 BUN 23 H Creatinine 1.00 Estim Creat Clear Calc 65 Estimated GFR > 60 Glucose 136 H POC Capillary Glucose 158 H 123 H Lactic Acid 0.8 Calcium 8.2 L Total Bilirubin AST ALT Alkaline Phosphatase Troponin I Total Protein Albumin Lipase Urine Color Urine Appearance Urine pH Ur Specific [place] Urine Protein Urine Glucose (UA) Urine Ketones Ur Blood (Man) Urine Nitrate Urine Bilirubin Urine Urobilinogen Leukocyte Esterase Rfl Urine RBC Urine WBC Ur Squamous Epith Cells Urine Bacteria Urine Casts 01/22/25 06:05 WBC RBC Hgb Hct MCV MCH MCHC RDW Plt Count MPV Immature Gran % (Auto) Neut % (Auto) Lymph % (Auto) [place] % (Auto) Eos % (Auto) Baso % (Auto) Lymph # (Auto) [place] # (Auto) Eos # (Auto) Baso # (Auto) Abs Immat Gran (auto) Absolute Neuts (auto) Absolute Nucleated RBC Nucleated RBC % % Immature Plt Fraction PT INR APTT Sodium Potassium Chloride Carbon Dioxide Anion Gap BUN Creatinine Estim Creat Clear Calc Estimated GFR Glucose POC Capillary Glucose 126 H Lactic Acid Calcium Total Bilirubin AST ALT Alkaline Phosphatase Troponin I Total Protein Albumin Lipase Urine Color Urine Appearance Urine pH Ur Specific [place] Urine Protein Urine Glucose (UA) Urine Ketones Ur Blood (Man) Urine Nitrate Urine Bilirubin Urine Urobilinogen Leukocyte Esterase Rfl Urine RBC Urine WBC Ur Squamous Epith Cells Urine Bacteria Urine Casts
[2025-01-22] MEDS: MORPHINE SULFATE (*CRX) 4 MG/ML INJ IV PUSH (11:38)
[2025-01-22 14:59] VITALS: BP 151/69; PULSE 71; RESP 16; TEMP 36.6; O2SAT 98
[2025-01-22] MEDS: MORPHINE SULFATE (*CRX) 2 MG/ML INJ IV PUSH ×2 (14:59→18:03)
[2025-01-22 16:07] LABS: Hematocrit 48.3 % (42.0-52.0); Hemoglobin 15.3 g/dL (14.0-18.0); Immature Platelet Fraction Pct 8.1 % (0.9-11.2); Mean Corpuscular HGB Conc 31.7 g/dl (32-36); Mean Corpuscular Hemoglobin 28.2 pg (26-34); Mean Corpuscular Volume 89.0 fl (80-100); Platelet Count Result 81 k/mm3 (150-375); Red Blood Count 5.43 M/mm3 (4.6-6.20)
[2025-01-22 16:08] LABS: White Blood Count 5.5 K/mm3 (4.5-10.0)
[2025-01-22 16:24] LABS: Anion Gap 8 mmol/L (4-12); Blood Urea Nitrogen 17 mg/dL (9-20); Calcium 9.1 mg/dL (8.4-10.2); Carbon Dioxide 26 mmol/L (22-30); Chloride 110 mmol/L (98-107); Estimated CRCL calculation 56 ml/min; Estimated Glomerular Filt Rate > 60; Glucose 123 mg/dL (65-110); Potassium 4.3 mmol/L (3.4-5.0); Sodium 144 mmol/L (137-145)
--- NOTE | 2025-01-22 17:56 | P.PNIM_ITS ---
Progress Note: A&P Assessment and Plan (1) Partial small bowel obstruction: Code(s): K56.600 - Partial intestinal obstruction, unspecified as to cause Status: Acute Assessment and Plan: On admission, Chest/abdomen/pelvis shows a few dilated small bowel loops in the right abdomen and pelvis was the small amount of fluid and surrounding fat stranding that suggests partial small-bowel obstruction. Surgery consulted, recommend NGT with low intermittent suction, IV fluid and NPO No leukocytosis/fever-hemodynamically stable Will continue ceftriaxone and Flagyl Follow-up blood culture (2) Hypertension: Qualifiers: Hypertension type: primary hypertension Qualified Code(s): I10 - Essential (primary) hypertension Code(s): I10 - Essential (primary) hypertension Status: Chronic Assessment and Plan: Maintain BP less than 140/80 (3) Hyperlipidemia: Qualifiers: Hyperlipidemia type: moderate mixed hyperlipidemia not requiring statin therapy Qualified Code(s): E78.2 - Mixed hyperlipidemia Code(s): E78.5 - Hyperlipidemia, unspecified Status: Acute Assessment and Plan: Will continue statin once he is able to take medication by mouth (4) DM2 (diabetes mellitus, type 2): Qualifiers: Diabetes mellitus 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 Diabetes mellitus complication status: without complication Qualified Code(s): E11.9 - Type 2 diabetes mellitus without complications; Z79.4 - rn long term care (current) use of insulin Code(s): E11.9 - Type 2 diabetes mellitus without complications Status: Chronic Assessment and Plan: POCT, sliding scale, hypoglycemia protocol Currently holding Lantus due to NPO (5) Seizures: Code(s): R56.9 - Unspecified convulsions Status: Acute Assessment and Plan: Continue Keppra, zonegran and vimpat (6) Splenomegaly: Code(s): R16.1 - Splenomegaly, not elsewhere classified Status: Acute Assessment and Plan: Seen previously on CTs Subjective Date/time seen: 01/22/25 17:56 Interval history: Patient seen this afternoon. He had diarrhea. Right abdomen pain feels better. Denies nausea/vomiting. He is still on NG tube with low intermittent suction. No fever or chills. He underwent small-bowel x-ray which shows a delayed transit of contrast in the colon which takes be to use 3-4.5 hours without significant dilation of the small bowel consistent with the ileus versus partial small-bowel obstruction. Also noted 7 fat stranding suggesting terminal ileitis. On x-ray, noted large right renal stone. Exam Narrative: APPEARANCE: Obese, mild distress EYES: EOMI HEENT: Normocephalic, atraumatic, OMM RESPIRATORY: No respiratory distress Clear to auscultation bilaterally with no rhonchi wheezing or rales. CARDIOVASCULAR: RRR, S1 and S2 without murmurs rubs or gallops. ABDOMINAL: Abdominal distension, soft nontender, nontender, negative for guarding/peritonitis MSK: Moves his extremities spontaneously NEURO: Awake and alert. Following commands, speech normal, no focal deficits SKIN:: Warm, dry. No rashes lesions or abrasions PSYCHIATRIC: Normal affect/mood, Objective Data Vital Signs Vital Signs: Vital Signs - 24 hr 01/21/25 21:00 01/21/25 21:10 01/21/25 23:08 Temperature 36.7 C Pulse Rate 77 Respiratory Rate 18 1 L Blood Pressure 137/67 Pulse Oximetry 97 97 97 Oxygen Delivery Autopap Autopap 01/22/25 05:31 01/22/25 14:59 Temperature 36.0 C L 36.6 C Pulse Rate 96 71 Respiratory Rate 16 16 Blood Pressure 131/61 151/69 H Pulse Oximetry 96 98 Oxygen Delivery Intake/Output Intake/Output: Intake & Output 01/19/25 01/20/25 01/21/25 01/22/25 23:59 23:59 23:59 23:59 Intake Total 650 1100 Output Total 200 Balance 650 900 Meds/Results Medications: Active Medications Generic Name Dose Route Start Last Admin Trade Name Freq PRN Reason Stop Dose Admin Al Hydrox/Mg Hydrox/Simethicone 30 ml 01/21/25 18:15 01/22/25 05:36 Mag Hydrox/Al Hydrox/Simeth 30 Ml Udc PO 30 ml Q8HR SILVANA Administration Atorvastatin Calcium 40 mg 01/22/25 09:00 01/22/25 08:18 Atorvastatin 40 Mg Tablet PO 40 mg DAILY SILVANA Administration Dextrose 12.5 gm 01/21/25 19:26 Dextrose 50% 25 Gm/50 Ml Syringe IV PUSH PRN PRN Hypoglycemia Protocol Enoxaparin Sodium 40 mg 01/22/25 09:00 01/22/25 08:18 Enoxaparin 40 Mg/0.4 Ml Syringe SUB-Q 40 mg On Hold: 01/22/25 12:26 DAILY SILVANA Administration Glucagon 1 mg 01/21/25 19:26 Glucagon For Inj 1 Mg Vial IM PRN PRN Hypoglycemia Protocol Glucose 15 gm 01/21/25 19:26 Glucose Oral Gel 15 Gm Of Glucse In 37.5 Gm Tube PO PRN PRN Hypoglycemia Protocol Sodium Chloride 1,000 mls @ 125 mls/hr 01/21/25 14:45 01/22/25 03:59 Normal Saline Iv IV CONT 125 mls/hr .Q8H SILVANA Administration Ceftriaxone Sodium 1 gm/ 50 mls @ 100 mls/hr 01/22/25 16:00 Sodium Chloride IVPB Q24H SILVANA Metronidazole 500 mg in 100 mls @ 100 mls/hr 01/22/25 00:00 01/22/25 08:32 Flagyl 500 Mg/Iso Soln 100 Ml IVPB 100 mls/hr Q8H SILVANA Administration Levetiracetam 1,000 mg in 100 mls @ 400 mls/hr 01/21/25 21:00 01/22/25 08:14 Keppra Iv IVPB 400 mls/hr Q12HR SILVANA Administration Dextrose 1,000 mls @ 100 mls/hr 01/21/25 19:26 Dextrose 5% 1,000 Ml IVPB PRN PRN Hypoglycemia Protocol Insulin Aspart 2 - 5 units 01/22/25 00:00 01/22/25 00:58 Insulin Aspart (*Bkc) 100 Units/Ml SUB-Q Not Given Q6HR SILVANA Protocol Lacosamide 100 mg 01/22/25 09:00 01/22/25 08:18 Lacosamide (*Crx) 100 Mg Tablet PO 100 mg DAILY SILVANA Administration Morphine Sulfate 4 mg 01/22/25 09:39 01/22/25 11:38 Morphine Sulfate (*Crx) 4 Mg/Ml Inj IV PUSH 4 mg Q3H PRN Administration Pain Rated 7-10 Morphine Sulfate 2 mg 01/22/25 09:39 01/22/25 14:59 Morphine Sulfate (*Crx) 2 Mg/Ml Inj IV PUSH 2 mg Q3H PRN Administration Pain Rated 4-6 Pantoprazole Sodium 40 mg 01/22/25 09:00 01/22/25 08:18 Pantoprazole Sodium Iv 40 Mg Vial IV PUSH 40 mg QAM SILVANA Administration Pregabalin 150 mg 01/22/25 09:00 01/22/25 08:17 Pregabalin (*Crx) 75 Mg Capsule PO 150 mg QAM SILVANA Administration Zonisamide 200 mg 01/22/25 09:00 01/22/25 08:17 Zonisamide 100 Mg Capsule PO 200 mg DAILY SILVANA Administration Radiology Results: ITS Impressions Chest X-Ray 01/21/25 11:48 IMPRESSION: 1: NO ACUTE CARDIOPULMONARY DISEASE. Chest/Abdomen/Pelvis CTA 01/21/25 12:55 IMPRESSION: 1. There are a few dilated small bowel loops in the right abdomen and pelvis with a small amount of fluid and surrounding fat stranding. The finding are concerning for at least a partial small bowel obstruction. Follow-up is recommended. 2. There are a few small to moderate-sized groundglass opacity scattered throughout both lungs most prominent in the right upper lobe posteriorly. Differential includes but is not limited to edema, pneumonia or hypersensitivity pneumonitis. Recommend follow-up to resolution. A follow-up chest CT in 2-4 weeks is recommended to assess for interval clearance. 3. Concentric thickening of the howard of the mildly distended bladder. Differential includes incomplete bladder wall distention versus cystitis. 4. Mild splenomegaly. Abdomen X-Ray 01/21/25 16:12 IMPRESSION: 1. Nasogastric tube in expected position with distal tip in proximal side port in the stomach. Small Bowel X-Ray 01/22/25 17:16 IMPRESSION: 1. Delayed transit of contrast in the colon which takes between 3-4.5 hours without significant dilation of the small bowel consistent with with ileus versus partial small bowel obstruction. Would favor the latter given the transition point at the terminal ileum where there is some stranding suggesting terminal ileitis on prior CT. 2. Large right renal stone.. Labs Labs: Laboratory Results - last 24 hr 01/22/25 01/22/25 01/22/25 00:58 05:57 06:05 WBC 6.1 RBC 4.91 Hgb 13.9 L D Hct 44.0 MCV 89.6 MCH 28.3 MCHC 31.6 L RDW 14.8 H Plt Count 78 L MPV 12.3 H % Immature Plt Fraction 9.3 Sodium 140 Potassium 4.5 Chloride 110 H Carbon Dioxide 23 Anion Gap 7 BUN 23 H Creatinine 1.00 Estim Creat Clear Calc 65 Estimated GFR > 60 Glucose 136 H POC Capillary Glucose 123 H 126 H Lactic Acid 0.8 Calcium 8.2 L 01/22/25 01/22/25 01/22/25 15:03 15:59 17:04 WBC 5.5 RBC 5.43 Hgb 15.3 Hct 48.3 MCV 89.0 MCH 28.2 MCHC 31.7 L RDW 14.8 H Plt Count 81 L MPV 11.8 H % Immature Plt Fraction 8.1 Sodium 144 Potassium 4.3 Chloride 110 H Carbon Dioxide 26 Anion Gap 8 BUN 17 Creatinine 1.17 Estim Creat Clear Calc 56 Estimated GFR > 60 Glucose 123 H POC Capillary Glucose 118 H 120 H Lactic Acid Calcium 9.1 Quality VTE Prophylaxis VTE prophylaxis: mechanical ordered
[2025-01-22] MEDS: cefTRIAXone 1 GM in SODIUM CHLORIDE 0.9% IV 50 ML 100 ML IVPB (18:04)
[2025-01-22 19:50] VITALS: BP 157/69; PULSE 73; RESP 20; TEMP 36; O2SAT 97
[2025-01-23] VITALS (15 sets, daily range): BP systolic 116–174; BP diastolic 42–73; PULSE 50–100; RESP 12–98; TEMP 36.2–37.7; O2SAT 91–100
[2025-01-23] MEDS: MORPHINE SULFATE (*CRX) 2 MG/ML INJ IV PUSH ×2 (02:25→12:27)
[2025-01-23] MEDS: SODIUM CHLORIDE 0.9% IV 1,000 ML 125 ML IV CONT ×2 (05:01→20:37)
[2025-01-23] MEDS: MAG HYDROX/AL HYDROX/SIMETH 30 ML UDC PO (05:01)
[2025-01-23 06:24] LABS: Hematocrit 51.6 % (42.0-52.0); Hemoglobin 15.9 g/dL (14.0-18.0); Immature Platelet Fraction Pct 8.4 % (0.9-11.2); Mean Corpuscular HGB Conc 30.8 g/dl (32-36); Mean Corpuscular Hemoglobin 28.0 pg (26-34); Mean Corpuscular Volume 91.0 fl (80-100); Platelet Count Result 101 k/mm3 (150-375); Red Blood Count 5.67 M/mm3 (4.6-6.20); White Blood Count 6.7 K/mm3 (4.5-10.0)
[2025-01-23 07:02] LABS: Anion Gap 12 mmol/L (4-12); Blood Urea Nitrogen 19 mg/dL (9-20); Calcium 8.8 mg/dL (8.4-10.2); Carbon Dioxide 24 mmol/L (22-30); Chloride 111 mmol/L (98-107); Estimated CRCL calculation 60 ml/min; Estimated Glomerular Filt Rate > 60; Glucose 118 mg/dL (65-110); Potassium 4.1 mmol/L (3.4-5.0); Sodium 147 mmol/L (137-145)
--- NOTE | 2025-01-23 07:52 | P.PNIM_ITS ---
Progress Note: A&P Assessment and Plan (1) Partial small bowel obstruction: Code(s): K56.600 - Partial intestinal obstruction, unspecified as to cause Status: Acute Assessment and Plan: On admission, Chest/abdomen/pelvis shows a few dilated small bowel loops in the right abdomen and pelvis was the small amount of fluid and surrounding fat stranding that suggests partial small-bowel obstruction. Surgery consulted, recommend NGT with low intermittent suction, IV fluid and NPO No leukocytosis/fever-hemodynamically stable Will continue ceftriaxone and Flagyl Follow-up blood culture General surgery is scheduled for laparotomy today (2) Hypertension: Qualifiers: Hypertension type: primary hypertension Qualified Code(s): I10 - Essential (primary) hypertension Code(s): I10 - Essential (primary) hypertension Status: Chronic Assessment and Plan: Maintain BP less than 140/80 (3) Hyperlipidemia: Qualifiers: Hyperlipidemia type: moderate mixed hyperlipidemia not requiring statin therapy Qualified Code(s): E78.2 - Mixed hyperlipidemia Code(s): E78.5 - Hyperlipidemia, unspecified Status: Acute Assessment and Plan: Will continue statin once he is able to take medication by mouth (4) DM2 (diabetes mellitus, type 2): Qualifiers: Diabetes mellitus complication status: without complication 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 Qualified Code(s): E11.9 - Type 2 diabetes mellitus without complications; Z79.4 - intermediate frame tender (current) use of insulin Code(s): E11.9 - Type 2 diabetes mellitus without complications Status: Chronic Assessment and Plan: POCT, sliding scale, hypoglycemia protocol Currently holding Lantus due to NPO (5) Seizures: Code(s): R56.9 - Unspecified convulsions Status: Acute Assessment and Plan: Continue Keyadira, zonelaureen and vimpat (6) Splenomegaly: Code(s): R16.1 - Splenomegaly, not elsewhere classified Status: Acute Assessment and Plan: Seen previously on CTs Subjective Date/time seen: 01/23/25 07:52 Interval history: Had a bowel movement overnight. Bowel is still distended but denies nausea or vomiting. She is scheduled for laparotomy surgery. Exam Narrative: APPEARANCE: Obese, mild distress EYES: EOMI HEENT: Normocephalic, atraumatic, OMM RESPIRATORY: No respiratory distress Clear to auscultation bilaterally with no rhonchi wheezing or rales. CARDIOVASCULAR: RRR, S1 and S2 without murmurs rubs or gallops. ABDOMINAL: Abdominal distension, soft nontender, nontender, negative for guarding/peritonitis MSK: Moves his extremities spontaneously NEURO: Awake and alert. Following commands, speech normal, no focal deficits SKIN:: Warm, dry. No rashes lesions or abrasions PSYCHIATRIC: Normal affect/mood, Objective Data Vital Signs Vital Signs: Vital Signs - 24 hr 01/22/25 14:59 01/22/25 19:50 01/23/25 00:00 Temperature 36.6 C 36.0 C L 36.3 C L Pulse Rate 71 73 73 Respiratory Rate 16 20 14 Blood Pressure 151/69 H 157/69 H 147/70 H Pulse Oximetry 98 97 97 01/23/25 06:00 Temperature 36.2 C L Pulse Rate 50 L Respiratory Rate 18 Blood Pressure 154/64 H Pulse Oximetry 99 Intake/Output Intake/Output: Intake & Output 01/20/25 01/21/25 01/22/25 01/23/25 23:59 23:59 23:59 23:59 Intake Total 650 2450 1000 Output Total 1250 250 Balance 650 1200 750 Meds/Results Medications: Active Medications Generic Name Dose Route Start Last Admin Trade Name Freq PRN Reason Stop Dose Admin Al Hydrox/Mg Hydrox/Simethicone 30 ml 01/21/25 18:15 01/23/25 05:01 Mag Hydrox/Al Hydrox/Simeth 30 Ml Udc PO 30 ml Q8HR SILVANA Administration Atorvastatin Calcium 40 mg 01/22/25 09:00 01/22/25 08:18 Atorvastatin 40 Mg Tablet PO 40 mg DAILY SILVANA Administration Dextrose 12.5 gm 01/21/25 19:26 Dextrose 50% 25 Gm/50 Ml Syringe IV PUSH PRN PRN Hypoglycemia Protocol Enoxaparin Sodium 40 mg 01/22/25 09:00 01/22/25 08:18 Enoxaparin 40 Mg/0.4 Ml Syringe SUB-Q 40 mg On Hold: 01/22/25 12:26 DAILY SILVANA Administration Glucagon 1 mg 01/21/25 19:26 Glucagon For Inj 1 Mg Vial IM PRN PRN Hypoglycemia Protocol Glucose 15 gm 01/21/25 19:26 Glucose Oral Gel 15 Gm Of Glucse In 37.5 Gm Tube PO PRN PRN Hypoglycemia Protocol Hydralazine HCl 10 mg 01/23/25 07:46 Hydralazine Hcl 20 Mg/Ml Vial IV PUSH Q8H PRN Blood Pressure - High Sodium Chloride 1,000 mls @ 125 mls/hr 01/21/25 14:45 01/23/25 05:01 Normal Saline Iv IV CONT 125 mls/hr .Q8H SILVANA Administration Ceftriaxone Sodium 1 gm/ 50 mls @ 100 mls/hr 01/22/25 16:00 01/22/25 18:34 Sodium Chloride IVPB Infused Q24H SILVANA Infusion Metronidazole 500 mg in 100 mls @ 100 mls/hr 01/22/25 00:00 01/22/25 23:45 Flagyl 500 Mg/Iso Soln 100 Ml IVPB 100 mls/hr Q8H SILVANA Administration Levetiracetam 1,000 mg in 100 mls @ 400 mls/hr 01/21/25 21:00 01/22/25 21:12 Keppra Iv IVPB 400 mls/hr Q12HR SILVANA Administration Dextrose 1,000 mls @ 100 mls/hr 01/21/25 19:26 Dextrose 5% 1,000 Ml IVPB PRN PRN Hypoglycemia Protocol Insulin Aspart 2 - 5 units 01/22/25 00:00 01/23/25 07:49 Insulin Aspart (*Bkc) 100 Units/Ml SUB-Q Not Given Q6HR [facility] Protocol Lacosamide 100 mg 01/22/25 09:00 01/22/25 08:18 Lacosamide (*Crx) 100 Mg Tablet PO 100 mg DAILY SILVANA Administration Morphine Sulfate 4 mg 01/22/25 09:39 01/22/25 11:38 Morphine Sulfate (*Crx) 4 Mg/Ml Inj IV PUSH 4 mg Q3H PRN Administration Pain Rated 7-10 Morphine Sulfate 2 mg 01/22/25 09:39 01/23/25 02:25 Morphine Sulfate (*Crx) 2 Mg/Ml Inj IV PUSH 2 mg Q3H PRN Administration Pain Rated 4-6 Ondansetron HCl 4 mg 01/22/25 18:07 Ondansetron Inj 4 Mg/2 Ml Vial IV PUSH Q6H PRN Nausea And Vomiting Pantoprazole Sodium 40 mg 01/22/25 09:00 01/22/25 08:18 Pantoprazole Sodium Iv 40 Mg Vial IV PUSH 40 mg QAM SILVANA Administration Pregabalin 150 mg 01/22/25 09:00 01/22/25 08:17 Pregabalin (*Crx) 75 Mg Capsule PO 150 mg QAM SILVANA Administration Zonisamide 200 mg 01/22/25 09:00 01/22/25 08:17 Zonisamide 100 Mg Capsule PO 200 mg DAILY SILVANA Administration Radiology Results: ITS Impressions Chest X-Ray 01/21/25 11:48 IMPRESSION: 1: NO ACUTE CARDIOPULMONARY DISEASE. Chest/Abdomen/Pelvis CTA 01/21/25 12:55 IMPRESSION: 1. There are a few dilated small bowel loops in the right abdomen and pelvis with a small amount of fluid and surrounding fat stranding. The finding are concerning for at least a partial small bowel obstruction. Follow-up is recommended. 2. There are a few small to moderate-sized groundglass opacity scattered throughout both lungs most prominent in the right upper lobe posteriorly. Differential includes but is not limited to edema, pneumonia or hypersensitivity pneumonitis. Recommend follow-up to resolution. A follow-up chest CT in 2-4 weeks is recommended to assess for interval clearance. 3. Concentric thickening of the howard of the mildly distended bladder. Differential includes incomplete bladder wall distention versus cystitis. 4. Mild splenomegaly. Abdomen X-Ray 01/21/25 16:12 IMPRESSION: 1. Nasogastric tube in expected position with distal tip in proximal side port in the stomach. Small Bowel X-Ray 01/22/25 17:16 IMPRESSION: 1. Delayed transit of contrast in the colon which takes between 3-4.5 hours without significant dilation of the small bowel consistent with with ileus versus partial small bowel obstruction. Would favor the latter given the transition point at the terminal ileum where there is some stranding suggesting terminal ileitis on prior CT. 2. Large right renal stone.. Labs Labs: Laboratory Results - last 24 hr 01/22/25 01/22/25 01/22/25 05:57 15:03 15:59 WBC 6.1 5.5 RBC 4.91 5.43 Hgb 13.9 L D 15.3 Hct 44.0 48.3 MCV 89.6 89.0 MCH 28.3 28.2 MCHC 31.6 L 31.7 L RDW 14.8 H 14.8 H Plt Count 78 L 81 L MPV 12.3 H 11.8 H % Immature Plt Fraction 9.3 8.1 Sodium 144 Potassium 4.3 Chloride 110 H Carbon Dioxide 26 Anion Gap 8 BUN 17 Creatinine 1.17 Estim Creat Clear Calc 56 Estimated GFR > 60 Glucose 123 H POC Capillary Glucose 118 H Calcium 9.1 Blood Type Antibody Screen 01/22/25 01/22/25 01/23/25 17:04 23:58 05:29 WBC 6.7 RBC 5.67 Hgb 15.9 Hct 51.6 MCV 91.0 MCH 28.0 MCHC 30.8 L RDW 14.6 H Plt Count 101 L MPV 11.9 H % Immature Plt Fraction 8.4 Sodium 147 H Potassium 4.1 Chloride 111 H Carbon Dioxide 24 Anion Gap 12 BUN 19 Creatinine 1.09 Estim Creat Clear Calc 60 Estimated GFR > 60 Glucose 118 H POC Capillary Glucose 120 H 110 H Calcium 8.8 Blood Type O Positive Antibody Screen Negative 01/23/25 05:39 WBC RBC Hgb Hct MCV MCH MCHC RDW Plt Count MPV % Immature Plt Fraction Sodium Potassium Chloride Carbon Dioxide Anion Gap BUN Creatinine Estim Creat Clear Calc Estimated GFR Glucose POC Capillary Glucose 110 H Calcium Blood Type Antibody Screen Quality VTE Prophylaxis VTE prophylaxis: mechanical ordered
[2025-01-23] MEDS: ZONISAMIDE 100 MG CAPSULE 200 MG PO (09:48)
[2025-01-23] MEDS: PREGABALIN (*CRX) 75 MG CAPSULE 150 MG PO (09:49)
[2025-01-23] MEDS: LACOSAMIDE (*CRX) 100 MG TABLET PO (09:49)
[2025-01-23] MEDS: metroNIDAZOLE 500 MG/ISO 100ML 500 MG/100 ML BAG 100 MG IVPB ×2 (09:49→16:30)
[2025-01-23] MEDS: PANTOPRAZOLE SODIUM IV 40 MG VIAL IV PUSH (09:51)
[2025-01-23] MEDS: levETIRAcetam 1000MG/NACL100ML 1,000 MG/100 ML BAG 400 MG IVPB ×2 (09:55→20:37)
--- NOTE | 2025-01-23 11:30 | P.PN_ITS ---
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 These had multiple admissions to the hospital this year for this problem but has always resolved with non operative management. After discussion with the patient of treatment options of non operative management again and attempt remove his NG tube and see if he can tolerate diet versus proceeding to the operating room with a attempted a robotic assisted laparoscopic adhesiolysis a possible conversion open or bowel resection, he has elected to proceed with surgical management this time. He is tired of be admitted to the hospital for partial small-bowel obstructions I would like to see if definitive management the surgery for this problem is successful. I did advise him that additional surgery, especially laparotomy would likely result in postsurgical adhesions again to hopefully they would not form in such a way that would cause another bowel obstruction. He understands and wants to proceed with surgery. Risks to include possible bowel resection, possible need for blood transfusion or platelet transfusion, and conversion to an open laparotomy incision was discussed. He understands. Subjective Date/time seen: 01/23/25 11:30 Interval history: This morning patient still feels like he is having some diffuse mild abdominal pain. He did have a bowel movement overnight after the water-soluble small bowel series. The small bowel series showed passage of contrast into the colon at 3 to 4 hours. This was delayed transit likely due to a partial small-bowel obstruction. Very similar to his previous small bowel series done earlier this summer. White blood count is normal. No tachycardia or hypotension. White blood count is normal. Exam GI: Other: Abdomen is mildly distended but soft. Diffuse mild tenderness without guarding or rebound tenderness. Objective Data Vital Signs Vital Signs: Vital Signs - 24 hr 01/22/25 14:59 01/22/25 19:50 01/23/25 00:00 Temperature 36.6 C 36.0 C L 36.3 C L Pulse Rate 71 73 73 Respiratory Rate 16 20 14 Blood Pressure 151/69 H 157/69 H 147/70 H Pulse Oximetry 98 97 97 01/23/25 06:00 Temperature 36.2 C L Pulse Rate 50 L Respiratory Rate 18 Blood Pressure 154/64 H Pulse Oximetry 99 Intake/Output Intake/Output: Intake & Output 01/20/25 01/21/25 01/22/25 01/23/25 23:59 23:59 23:59 23:59 Intake Total 650 2550 1100 Output Total 1250 250 Balance 650 1300 850 Meds/Results Medications: Active Medications Generic Name Dose Route Start Last Admin Trade Name Freq PRN Reason Stop Dose Admin Al Hydrox/Mg Hydrox/Simethicone 30 ml 01/21/25 18:15 01/23/25 05:01 Mag Hydrox/Al Hydrox/Simeth 30 Ml Udc PO 30 ml Q8HR SILVANA Administration Atorvastatin Calcium 40 mg 01/22/25 09:00 01/22/25 08:18 Atorvastatin 40 Mg Tablet PO 40 mg DAILY SILVANA Administration Dextrose 12.5 gm 01/21/25 19:26 Dextrose 50% 25 Gm/50 Ml Syringe IV PUSH PRN PRN Hypoglycemia Protocol Enoxaparin Sodium 40 mg 01/22/25 09:00 01/22/25 08:18 Enoxaparin 40 Mg/0.4 Ml Syringe SUB-Q 40 mg On Hold: 01/22/25 12:26 DAILY SILVANA Administration Glucagon 1 mg 01/21/25 19:26 Glucagon For Inj 1 Mg Vial IM PRN PRN Hypoglycemia Protocol Glucose 15 gm 01/21/25 19:26 Glucose Oral Gel 15 Gm Of Glucse In 37.5 Gm Tube PO PRN PRN Hypoglycemia Protocol Hydralazine HCl 10 mg 01/23/25 07:46 Hydralazine Hcl 20 Mg/Ml Vial IV PUSH Q8H PRN Blood Pressure - High Sodium Chloride 1,000 mls @ 125 mls/hr 01/21/25 14:45 01/23/25 05:01 Normal Saline Iv IV CONT 125 mls/hr .Q8H SILVANA Administration Ceftriaxone Sodium 1 gm/ 50 mls @ 100 mls/hr 01/22/25 16:00 01/22/25 18:34 Sodium Chloride IVPB Infused Q24H SILVANA Infusion Metronidazole 500 mg in 100 mls @ 100 mls/hr 01/22/25 00:00 01/23/25 09:49 Flagyl 500 Mg/Iso Soln 100 Ml IVPB 100 mls/hr Q8H SILVANA Administration Levetiracetam 1,000 mg in 100 mls @ 400 mls/hr 01/21/25 21:00 01/23/25 09:55 Keppra Iv IVPB 400 mls/hr Q12HR SILVANA Administration Dextrose 1,000 mls @ 100 mls/hr 01/21/25 19:26 Dextrose 5% 1,000 Ml IVPB PRN PRN Hypoglycemia Protocol Insulin Aspart 2 - 5 units 01/22/25 00:00 01/23/25 07:49 Insulin Aspart (*Bkc) 100 Units/Ml SUB-Q Not Given Q6HR SILVANA Protocol Lacosamide 100 mg 01/22/25 09:00 01/23/25 09:49 Lacosamide (*Crx) 100 Mg Tablet PO 100 mg DAILY SILVANA Administration Morphine Sulfate 4 mg 01/22/25 09:39 01/22/25 11:38 Morphine Sulfate (*Crx) 4 Mg/Ml Inj IV PUSH 4 mg Q3H PRN Administration Pain Rated 7-10 Morphine Sulfate 2 mg 01/22/25 09:39 01/23/25 02:25 Morphine Sulfate (*Crx) 2 Mg/Ml Inj IV PUSH 2 mg Q3H PRN Administration Pain Rated 4-6 Ondansetron HCl 4 mg 01/22/25 18:07 Ondansetron Inj 4 Mg/2 Ml Vial IV PUSH Q6H PRN Nausea And Vomiting Pantoprazole Sodium 40 mg 01/22/25 09:00 01/23/25 09:51 Pantoprazole Sodium Iv 40 Mg Vial IV PUSH 40 mg QAM SILVANA Administration Pregabalin 150 mg 01/22/25 09:00 01/23/25 09:49 Pregabalin (*Crx) 75 Mg Capsule PO 150 mg QAM SILVANA Administration Zonisamide 200 mg 01/22/25 09:00 01/23/25 09:48 Zonisamide 100 Mg Capsule PO 200 mg DAILY SILVANA Administration Radiology Results: ITS Impressions Chest X-Ray 01/21/25 11:48 IMPRESSION: 1: NO ACUTE CARDIOPULMONARY DISEASE. Chest/Abdomen/Pelvis CTA 01/21/25 12:55 IMPRESSION: 1. There are a few dilated small bowel loops in the right abdomen and pelvis with a small amount of fluid and surrounding fat stranding. The finding are co ncerning for at least a partial small bowel obstruction. Follow-up is recommended. 2. There are a few small to moderate-sized groundglass opacity scattered throughout both lungs most prominent in the right upper lobe posteriorly. Differential includes but is not limited to edema, pneumonia or hypersensitivity pneumonitis. Recommend follow-up to resolution. A follow-up chest CT in 2-4 w eeks is recommended to assess for interval clearance. 3. Concentric thickening of the howard of the mildly distended bladder. Differential includes incomplete bladder wall distention versus cystitis. 4. Mild splenomegaly. Abdomen X-Ray 01/21/25 16:12 IMPRESSION: 1. Nasogastric tube in expected position with distal tip in proximal side port in the stomach. Small Bowel X-Ray 01/22/25 17:16 IMPRESSION: 1. Delayed transit of contrast in the colon which takes between 3-4.5 hours without significant dilation of the small bowel consistent with with ileus versus partial small bowel obstruction. Would favor the latter given the transition point at the terminal ileum where there is some stranding suggesting terminal ileitis on prior CT. 2. Large right renal stone.. Labs Labs: Laboratory Results - last 24 hr 01/22/25 01/22/25 01/22/25 15:03 15:59 17:04 WBC 5.5 RBC 5.43 Hgb 15.3 Hct 48.3 MCV 89.0 MCH 28.2 MCHC 31.7 L RDW 14.8 H Plt Count 81 L MPV 11.8 H % Immature Plt Fraction 8.1 Sodium 144 Potassium 4.3 Chloride 110 H Carbon Dioxide 26 Anion Gap 8 BUN 17 Creatinine 1.17 Estim Creat Clear Calc 56 Estimated GFR > 60 Glucose 123 H POC Capillary Glucose 118 H 120 H Calcium 9.1 Blood Type Antibody Screen 01/22/25 01/23/25 01/23/25 23:58 05:29 05:39 WBC 6.7 RBC 5.67 Hgb 15.9 Hct 51.6 MCV 91.0 MCH 28.0 MCHC 30.8 L RDW 14.6 H Plt Count 101 L MPV 11.9 H % Immature Plt Fraction 8.4 Sodium 147 H Potassium 4.1 Chloride 111 H Carbon Dioxide 24 Anion Gap 12 BUN 19 Creatinine 1.09 Estim Creat Clear Calc 60 Estimated GFR > 60 Glucose 118 H POC Capillary Glucose 110 H 110 H Calcium 8.8 Blood Type O Positive Antibody Screen Negative 01/23/25 08:07 WBC RBC Hgb Hct MCV MCH MCHC RDW Plt Count MPV % Immature Plt Fraction Sodium Potassium Chloride Carbon Dioxide Anion Gap BUN Creatinine Estim Creat Clear Calc Estimated GFR Glucose POC Capillary Glucose 89 Calcium Blood Type Antibody Screen
--- NOTE | 2025-01-23 13:58 | WPDANESEPPF ---
Anes - Initial Pre Proc Eval Procedure: Operation Date: 01/23/25 15:00 Proposed Procedures p Robotic Assisted Laparoscopic Adhesiolysis, Possible Bowel Resection - James Peoples MD Date/Time: 01/23/25 13:58 Surgeon: Brandan Lamar MD Pre Op Diagnosis: Partial Small Bowel Obstruction Patient Data Age: 74 Gender: M Height: 1.75 m Weight: 93.8 kg Last Vital Signs Temp 37.7 C H 01/23/25 12:55 Pulse 82 01/23/25 12:55 Resp 18 01/23/25 12:55 BP 154/70 H 01/23/25 12:55 Pulse Ox 98 01/23/25 12:55 O2 Del Method Room Air 01/23/25 12:55 Allergies Allergy/AdvReac Type Severity Reaction Status Date / Time codeine AdvReac Unknown Hyperactive Verified 01/23/25 13:17 empagliflozin (From AdvReac Unknown Other Verified 01/23/25 13:17 Jardiance) Home Medications ?Medication ?Instructions ?Recorded ?Confirmed ?Type atorvastatin 40 mg tablet 40 mg PO DAILY 08/03/22 01/21/25 History multivitamin with minerals-folic 1 tablet PO DAILY 08/03/22 01/21/25 History acid 0.4 mg tablet pantoprazole 40 mg tablet,delayed 40 mg PO DAILY 08/03/22 01/21/25 History release zonisamide 100 mg capsule 200 mg PO DAILY 09/21/22 01/21/25 History lacosamide 100 mg tablet 100 mg PO DAILY 01/17/23 01/21/25 History levetiracetam 500 mg tablet 1,000 mg (2 x 500 mg) PO QAM #30 01/19/23 01/21/25 Rx (Keppra) tabs pregabalin 50 mg capsule (Lyrica) 300 mg (6 x 50 mg) [facility] 01/19/23 01/21/25 Rx caps pregabalin 150 mg capsule 150 mg PO QAM 09/12/23 01/21/25 History levetiracetam 500 mg tablet 1,000 mg PO HS 11/24/24 01/21/25 History (Keppra) fluocinonide 0.05 % topical 1 applic topical PRN 01/21/25 01/21/25 History ointment insulin aspart U-100 100 unit/mL 1 - 15 unit subcut TIDWMEAL 01/21/25 01/21/25 History (3 mL) subcutaneous pen (Novolog FlexPen U-100 Insulin aspart) insulin glargine 100 unit/mL (3 40 unit subcut DAILY 01/21/25 01/21/25 History mL) subcutaneous pen (Lantus Solostar U-100 Insulin) Laboratory Tests 01/22/25 01/22/25 01/22/25 15:03 15:59 17:04 WBC 5.5 K/mm3 (4.5-10.0) RBC 5.43 M/mm3 (4.6-6.20) Hgb 15.3 g/dL (14.0-18.0) Hct 48.3 % (42.0-52.0) MCV 89.0 fl (80-100) MCH 28.2 pg (26-34) MCHC 31.7 L g/dl (32-36) RDW 14.8 H % (11.5-14.5) Plt Count 81 L k/mm3 (150-375) MPV 11.8 H fl (7.4-10.4) % Immature Plt Fraction 8.1 % (0.9-11.2) Sodium 144 mmol/L (137-145) Potassium 4.3 mmol/L (3.4-5.0) Chloride 110 H mmol/L (98-107) Carbon Dioxide 26 mmol/L (22-30) Anion Gap 8 mmol/L (4-12) BUN 17 mg/dL (9-20) Creatinine 1.17 mg/dL (0.7-1.3) Estim Creat Clear Calc 56 ml/min Estimated GFR > 60 (59 - ) Glucose 123 H mg/dL (65-110) POC Capillary Glucose 118 H mg/dl 120 H mg/dl (65-105) (65-105) Calcium 9.1 mg/dL (8.4-10.2) Blood Type Antibody Screen 01/22/25 01/23/25 01/23/25 23:58 05:29 05:39 WBC 6.7 K/mm3 (4.5-10.0) RBC 5.67 M/mm3 (4.6-6.20) Hgb 15.9 g/dL (14.0-18.0) Hct 51.6 % (42.0-52.0) MCV 91.0 fl (80-100) MCH 28.0 pg (26-34) MCHC 30.8 L g/dl (32-36) RDW 14.6 H % (11.5-14.5) Plt Count 101 L k/mm3 (150-375) MPV 11.9 H fl (7.4-10.4) % Immature Plt Fraction 8.4 % (0.9-11.2) Sodium 147 H mmol/L (137-145) Potassium 4.1 mmol/L (3.4-5.0) Chloride 111 H mmol/L (98-107) Carbon Dioxide 24 mmol/L (22-30) Anion Gap 12 mmol/L (4-12) BUN 19 mg/dL (9-20) Creatinine 1.09 mg/dL (0.7-1.3) Estim Creat Clear Calc 60 ml/min Estimated GFR > 60 (59 - ) Glucose 118 H mg/dL (65-110) POC Capillary Glucose 110 H mg/dl 110 H mg/dl (65-105) (65-105) Calcium 8.8 mg/dL (8.4-10.2) Blood Type O Positive Antibody Screen Negative 01/23/25 01/23/25 01/23/25 08:07 11:46 13:05 WBC RBC Hgb Hct MCV MCH MCHC RDW Plt Count MPV % Immature Plt Fraction Sodium Potassium Chloride Carbon Dioxide Anion Gap BUN Creatinine Estim Creat Clear Calc Estimated GFR Glucose POC Capillary Glucose 89 mg/dl 116 H mg/dl 123 H mg/dl (65-105) (65-105) (65-105) Calcium Blood Type Antibody Screen Patient hx anesthesia problems: none Family hx anesthesia problems: none Results Review: All pre-operative results and documents have been reviewed as part of the pre-operative evaluation. [facility] Past Medical History Medical History Neuropathy Hyperlipidemia DM2 (diabetes mellitus, type 2) Occult blood in stools Colon polyp Brain tumor History of seizure disorder Anemia Diabetes Hypertension Surgical History Surgical History H/O colonoscopy with polypectomy L4 through S1 on November 02, 2022 History of back surgery History of brain surgery Hx of total knee arthroplasty Bilaterally Family History Family History (Updated 01/21/25 @ 17:48 by Eliceo Brush RN) Unknown No problems noted. Sibling Heart valve replaced CHF (congestive heart failure) Sibling Diabetes mellitus Sibling Diabetes mellitus Sibling Diabetes mellitus Mother Diabetes mellitus Grandparent Diabetes mellitus Social History Social History Social History: The patient lives home alone and has 2 children. 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 Code status full code. Smoking status: Never smoker Alcohol intake: never Substance use: never Other substance usage details: CBD Gummies Do You Feel Safe in your Home?: Yes Lack of Transportation: No Lack of Food: Never True Current Housing: I Have Housing Concerned About Future Housing: No Difficulty Paying Gas/Electric Bills: No Difficulty Paying for Meds: No Currently Unemployed: No Education: Decline to Answer Difficulty w/ Childcare or Family Care: No Living arrangements: with family Spiritual care concerns: No Anes - Eval Final PreProcedure Day of Procedure 01/23/25 13:58 Patient weight: obese Heart: regular rate and rhythm Lungs: clear to auscultation Airway: Mallampati scale class III Neurological: alert and oriented Last oral intake: >/= 8 hours ASA classification: III Emergent: no Anesthetic plan: proceed Anesthesia type and monitoring: general ETT and standard monitoring Results Review: All pre-operative results and documents have been reviewed as part of the pre-operative evaluation. Informed Consent: The patient's anesthetic plan and its attendant risks and benefits were discussed with the patient/family/POA. Questions were solicited and answers provided to the satisfaction of the patient/family/POA.
[2025-01-23] MEDS: LACTATED RINGERS 1,000 ML 30 ML IV CONT ×3 (14:00→16:30)
--- NOTE | 2025-01-23 14:19 | WPDHPUPDATE1 ---
History and Physical Update Update Date/Time: 01/23/25 14:19 History and Physical has been reviewed, including an updated exam of the patient. There are NO changes in the patient's condition. Risks, benefits, and alternatives have been discussed and questions answered. Patient agrees to proceed with procedure.
[2025-01-23] MEDS: LIDO 1%/EPINEPHRINE 1:100,000 20 ML VIAL INFILTRATE (15:16)
--- NOTE | 2025-01-23 15:49 | S_PTH ---
PATIENT: Dane Parker LOC: [id number] U#:[id number] AGE/SX: 74/M ROOM: 311 RE01/22/[address]: Dorota Townsend MD : 1950 BED: 01 DIS: 01/26/2025 SPEC #: [id number] RECD: 01/27/25 07:42 STATUS: KARSTEN REJustyn #: [id number] CARMEN: 01/23/25 15:[address]: James Peoples DEPT: [facility] Surgical RECD BY: Nella Haynes ENTERED: 01/27/25 07:42 SP TYPE: Surgical OTHR DR: MD Redd Haji MD Tissues: A - Peritoneum B - Peritoneum Procedures: Wilson Keratin Gross and Microscopic Level 4 Synaptoshysin Chromogranin Stain [id number] Calretinin CDX2 CK 20 CK 7
[2025-01-23] MEDS: cefTRIAXone 1 GM in SODIUM CHLORIDE 0.9% IV 50 ML 100 ML IVPB (16:30)
[2025-01-23] MEDS: fentaNYL CITRATE INJ (*CRX) 100 MCG/2 ML VIAL 25 MCG IV PUSH ×2 (16:45→16:50)
[2025-01-23] MEDS: MORPHINE SULFATE (*CRX) 4 MG/ML INJ IV PUSH (17:58)
[2025-01-23] MEDS: ATORVASTATIN 40 MG TABLET PO (18:00)
[2025-01-24] VITALS (7 sets, daily range): BP systolic 132–166; BP diastolic 50–76; PULSE 63–75; RESP 16–18; TEMP 36.3–36.6; O2SAT 96–100
[2025-01-24] MEDS: INSULIN ASPART (*BKC) 100 UNITS/ML SUB-Q (00:06)
[2025-01-24 05:34] LABS: Hematocrit 41.3 % (42.0-52.0); Hemoglobin 13.3 g/dL (14.0-18.0); Immature Granulocyte Percent A 0.7 % (0-0.5); Immature Platelet Fraction Pct 6.6 % (0.9-11.2); Lymphocytes Absolute Auto 1.29 K/mm3 (0.9-3.2); Mean Corpuscular HGB Conc 32.2 g/dl (32-36); Mean Corpuscular Hemoglobin 28.5 pg (26-34); Mean Corpuscular Volume 88.4 fl (80-100); Nucleated Red Blood Cells Absolute Auto 0.000 K/mm3 (0.0-0.012); Nucleated Red Blood Cells Perc 0.0 % (0.0-0.2); Red Blood Count 4.67 M/mm3 (4.6-6.20); White Blood Count 5.8 K/mm3 (4.5-10.0)
[2025-01-24] MEDS: oxyCODONE HCL (*CRX) 5 MG TAB IR PO ×3 (05:46→18:37)
[2025-01-24] MEDS: SODIUM CHLORIDE 0.9% IV 1,000 ML 125 ML IV CONT (05:46)
[2025-01-24 05:54] LABS: Platelet Count Result 90 k/mm3 (150-375)
[2025-01-24 05:55] LABS: Alanine Aminotransferase 14 U/L (6-50); Albumin Level 3.3 g/dL (3.5-5.1); Alkaline Phosphatase 61 U/L (38-126); Anion Gap 6 mmol/L (4-12); Aspartate Amino Transferase 23 U/L (17-59); Bilirubin,Total 0.4 mg/dL (0.2-1.3); Blood Urea Nitrogen 17 mg/dL (9-20); Calcium 8.0 mg/dL (8.4-10.2); Carbon Dioxide 24 mmol/L (22-30); Chloride 110 mmol/L (98-107); Estimated CRCL calculation 67 ml/min; Estimated Glomerular Filt Rate > 60; Glucose 147 mg/dL (65-110); Potassium 4.2 mmol/L (3.4-5.0); Sodium 140 mmol/L (137-145); Total Protein 5.8 g/dL (6.3-8.2)
[2025-01-24 06:26] LABS: Carcinoembryonic Antigen 1.8 ng/mL (0.0-3.0)
[2025-01-24] MEDS: ENOXAPARIN 40 MG/0.4 ML SYRINGE SUB-Q (09:27)
[2025-01-24] MEDS: ATORVASTATIN 40 MG TABLET PO (09:27)
[2025-01-24] MEDS: ZONISAMIDE 100 MG CAPSULE 200 MG PO (09:27)
[2025-01-24] MEDS: LACOSAMIDE (*CRX) 100 MG TABLET PO (09:27)
[2025-01-24] MEDS: PANTOPRAZOLE SODIUM IV 40 MG VIAL IV PUSH (09:27)
[2025-01-24] MEDS: PREGABALIN (*CRX) 75 MG CAPSULE 150 MG PO (09:27)
[2025-01-24] MEDS: levETIRAcetam 1000MG/NACL100ML 1,000 MG/100 ML BAG 400 MG IVPB ×2 (10:46→21:14)
--- NOTE | 2025-01-24 12:02 | P.PNIM_ITS ---
Progress Note: A&P Assessment and Plan (1) Partial small bowel obstruction: Code(s): K56.600 - Partial intestinal obstruction, unspecified as to cause Status: Acute Assessment and Plan: On admission, Chest/abdomen/pelvis shows a few dilated small bowel loops in the right abdomen and pelvis was the small amount of fluid and surrounding fat stranding that suggests partial small-bowel obstruction. Surgery consulted, recommend NGT with low intermittent suction, IV fluid and NPO No leukocytosis/fever-hemodynamically stable, blood culture no growth to date Continue ceftriaxone and Flagyl 01/23/2025, underwent robotic assisted laparoscopy adhesiolysis. Tissue biopsy pending. CA-125 pending On clear liquid diet (2) Hypertension: Qualifiers: Hypertension type: primary hypertension Qualified Code(s): I10 - Essential (primary) hypertension Code(s): I10 - Essential (primary) hypertension Status: Chronic Assessment and Plan: Maintain BP less than 140/80 (3) Hyperlipidemia: Qualifiers: Hyperlipidemia type: moderate mixed hyperlipidemia not requiring statin therapy Qualified Code(s): E78.2 - Mixed hyperlipidemia Code(s): E78.5 - Hyperlipidemia, unspecified Status: Acute Assessment and Plan: Will continue statin once he is able to take medication by mouth (4) DM2 (diabetes mellitus, type 2): Qualifiers: Diabetes mellitus shelter insulin use: with shelter use Diabetes mellitus complication status: without complication Qualified Code(s): E11.9 - Type 2 diabetes mellitus without complications; Z79.4 - rn long term care (current) use of insulin Code(s): E11.9 - Type 2 diabetes mellitus without complications Status: Chronic Assessment and Plan: POCT, sliding scale, hypoglycemia protocol Currently holding Lantus due to NPO (5) Seizures: Code(s): R56.9 - Unspecified convulsions Status: Acute Assessment and Plan: Continue sapphire Duran and vimpat (6) Splenomegaly: Code(s): R16.1 - Splenomegaly, not elsewhere classified Status: Acute Assessment and Plan: Seen previously on CTs Time Spent With Patient Time: 35 minutes Subjective Date/time seen: 01/24/25 12:02 Interval history: Patient underwent robotic assisted laparoscopic adhesiolysis, possible bowel resection. This morning he is doing a lot better. He has abdominal soreness from his surgery. He denies nausea or vomiting he he reports is that he did not pass flatus or did have bowel. Denies fever or chills. Exam Narrative: APPEARANCE: Obese, mild distress EYES: EOMI HEENT: Normocephalic, atraumatic, OMM RESPIRATORY: No respiratory distress Clear to auscultation bilaterally with no rhonchi wheezing or rales. CARDIOVASCULAR: RRR, S1 and S2 without murmurs rubs or gallops. ABDOMINAL: Abdominal distension, tender to palpation, negative for guarding/peritonitis MSK: Moves his extremities spontaneously NEURO: Awake and alert. Following commands, speech normal, no focal deficits SKIN:: Warm, dry. No rashes lesions or abrasions PSYCHIATRIC: Normal affect/mood, Objective Data Vital Signs Vital Signs: Vital Signs - 24 hr 01/23/25 12:55 01/23/25 16:25 01/23/25 16:30 Temperature 37.7 C H 36.8 C Pulse Rate 82 98 98 Respiratory Rate 18 16 12 Blood Pressure 154/70 H 170/66 H 174/71 H Pulse Oximetry 98 100 93 Oxygen Delivery Room Air Simple Face Mask Room Air Oxygen Flow Rate 10 01/23/25 16:45 01/23/25 17:00 01/23/25 17:15 Temperature Pulse Rate 100 94 95 Respiratory Rate 13 12 12 Blood Pressure 162/65 H 149/58 H 145/62 H Pulse Oximetry 92 92 93 Oxygen Delivery Room Air Room Air Room Air Oxygen Flow Rate 01/23/25 17:24 01/23/25 17:45 01/23/25 18:00 Temperature 36.9 C 36.9 C Pulse Rate 94 93 94 Respiratory Rate 12 20 18 Blood Pressure 145/64 H 156/73 H 154/72 H Pulse Oximetry 93 98 97 Oxygen Delivery Room Air Oxygen Flow Rate 01/23/25 19:05 01/23/25 20:00 01/23/25 20:43 Temperature 37.0 C 36.5 C Pulse Rate 96 96 96 Respiratory Rate 98 H 18 18 Blood Pressure 151/69 H 156/57 H Pulse Oximetry 91 91 Oxygen Delivery Room Air Oxygen Flow Rate 01/23/25 22:00 01/24/25 00:43 01/24/25 04:43 Temperature 36.8 C 36.6 C 36.3 C L Pulse Rate 81 75 72 Respiratory Rate 18 18 18 Blood Pressure 116/42 L 132/50 L 149/76 H Pulse Oximetry 96 97 96 Oxygen Delivery Oxygen Flow Rate 01/24/25 06:00 01/24/25 08:43 Temperature 36.3 C L 36.4 C L Pulse Rate 70 66 Respiratory Rate 18 16 Blood Pressure 145/74 H 166/74 H Pulse Oximetry 100 100 Oxygen Delivery Oxygen Flow Rate Intake/Output Intake/Output: Intake & Output 01/21/25 01/22/25 01/23/25 01/24/25 23:59 23:59 23:59 23:59 Intake Total 650 2550 2810 1118 Output Total 1250 250 700 Balance 650 1300 2560 418 Meds/Results Medications: Active Medications Generic Name Dose Route Start Last Admin Trade Name Freq PRN Reason Stop Dose Admin Acetaminophen 1,000 mg 01/23/25 17:49 Acetaminophen 500 Mg Tablet PO Q6H PRN Mild Pain (1-3) or Fever Hydrocodone Bitart/Acetaminophen 1 tab 01/23/25 17:49 Hydrocodone/Acetaminophen (*Crx) 5-325 Mg Tablet PO Q4H PRN Pain Rated 4-6 Atorvastatin Calcium 40 mg 01/22/25 09:00 01/24/25 09:27 Atorvastatin 40 Mg Tablet PO 40 mg DAILY SILVANA Administration Dextrose 12.5 gm 01/21/25 19:26 Dextrose 50% 25 Gm/50 Ml Syringe IV PUSH PRN PRN Hypoglycemia Protocol Enoxaparin Sodium 40 mg 01/22/25 09:00 01/24/25 09:27 Enoxaparin 40 Mg/0.4 Ml Syringe SUB-Q 40 mg DAILY SILVANA Administration Fentanyl Citrate 25 mcg 01/23/25 14:05 01/23/25 16:50 Fentanyl Citrate Inj (*Crx) 100 Mcg/2 Ml Vial IV PUSH 25 mcg Q2M PRN Administration Pain Glucagon 1 mg 01/21/25 19:26 Glucagon For Inj 1 Mg Vial IM PRN PRN Hypoglycemia Protocol Glucose 15 gm 01/21/25 19:26 Glucose Oral Gel 15 Gm Of Glucse In 37.5 Gm Tube PO PRN PRN Hypoglycemia Protocol Hydralazine HCl 10 mg 01/23/25 07:46 Hydralazine Hcl 20 Mg/Ml Vial IV PUSH Q8H PRN Blood Pressure - High Sodium Chloride 1,000 mls @ 125 mls/hr 01/21/25 14:45 01/24/25 05:46 Normal Saline Iv IV CONT 125 mls/hr .Q8H SILVANA Administration Levetiracetam 1,000 mg in 100 mls @ 400 mls/hr 01/21/25 21:00 01/24/25 10:46 Keppra Iv IVPB 400 mls/hr Q12HR SILVANA Administration Dextrose 1,000 mls @ 100 mls/hr 01/21/25 19:26 Dextrose 5% 1,000 Ml IVPB PRN PRN Hypoglycemia Protocol Lactated Ringer's 1,000 mls @ 30 mls/hr 01/23/25 14:05 01/23/25 14:00 Lr - Lactated Ringers Iv IV CONT 30 mls/hr .Q24H SILVANA Administration Lactated Ringer's 1,000 mls @ 30 mls/hr 01/23/25 14:05 01/23/25 16:30 Lr - Lactated Ringers Iv IV CONT 30 mls/hr .Q24H SILVANA Administration Insulin Aspart 2 - 5 units 01/22/25 00:00 01/24/25 06:08 Insulin Aspart (*Bkc) 100 Units/Ml SUB-Q Not Given Q6HR [facility] Protocol Lacosamide 100 mg 01/22/25 09:00 01/24/25 09:27 Lacosamide (*Crx) 100 Mg Tablet PO 100 mg DAILY SILVANA Administration Morphine Sulfate 4 mg 01/22/25 09:39 01/23/25 17:58 Morphine Sulfate (*Crx) 4 Mg/Ml Inj IV PUSH 4 mg Q3H PRN Administration Pain Rated 7-10 Morphine Sulfate 2 mg 01/22/25 09:39 01/23/25 12:27 Morphine Sulfate (*Crx) 2 Mg/Ml Inj IV PUSH 2 mg Q3H PRN Administration Pain Rated 4-6 Ondansetron HCl 4 mg 01/22/25 18:07 Ondansetron Inj 4 Mg/2 Ml Vial IV PUSH Q6H PRN Nausea And Vomiting Ondansetron HCl 4 mg 01/23/25 14:05 Ondansetron Inj 4 Mg/2 Ml Vial IV PUSH ONCE PRN Nausea Oxycodone HCl 5 mg 01/23/25 17:49 01/24/25 05:46 Oxycodone Hcl (*Crx) 5 Mg Tab Ir PO 5 mg Q4H PRN Administration Pain Rated 7-10 Pantoprazole Sodium 40 mg 01/22/25 09:00 01/24/25 09:27 Pantoprazole Sodium Iv 40 Mg Vial IV PUSH 40 mg QAM SILVANA Administration Pregabalin 150 mg 01/22/25 09:00 01/24/25 09:27 Pregabalin (*Crx) 75 Mg Capsule PO 150 mg QAM SILVANA Administration Zonisamide 200 mg 01/22/25 09:00 01/24/25 09:27 Zonisamide 100 Mg Capsule PO 200 mg DAILY SILVANA Administration Radiology Results: ITS Impressions Chest X-Ray 01/21/25 11:48 IMPRESSION: 1: NO ACUTE CARDIOPULMONARY DISEASE. Chest/Abdomen/Pelvis CTA 01/21/25 12:55 IMPRESSION: 1. There are a few dilated small bowel loops in the right abdomen and pelvis with a small amount of fluid and surrounding fat stranding. The finding are concerning for at least a partial small bowel obstruction. Follow-up is recommended. 2. There are a few small to moderate-sized groundglass opacity scattered throughout both lungs most prominent in the right upper lobe posteriorly. Differential includes but is not limited to edema, pneumonia or hypersensitivity pneumonitis. Recommend follow-up to resolution. A follow-up chest CT in 2-4 weeks is recommended to assess for interval clearance. 3. Concentric thickening of the howard of the mildly distended bladder. Differential includes incomplete bladder wall distention versus cystitis. 4. Mild splenomegaly. Abdomen X-Ray 01/21/25 16:12 IMPRESSION: 1. Nasogastric tube in expected position with distal tip in proximal side port in the stomach. Small Bowel X-Ray 01/22/25 17:16 IMPRESSION: 1. Delayed transit of contrast in the colon which takes between 3-4.5 hours without significant dilation of the small bowel consistent with with ileus versus partial small bowel obstruction. Would favor the latter given the transition point at the terminal ileum where there is some stranding suggesting terminal ileitis on prior CT. 2. Large right renal stone.. Labs Labs: Laboratory Results - last 24 hr 01/23/25 01/23/25 01/23/25 11:46 13:05 16:32 WBC RBC Hgb Hct MCV MCH MCHC RDW Plt Count MPV Immature Gran % (Auto) Neut % (Auto) Lymph % (Auto) [place] % (Auto) Eos % (Auto) Baso % (Auto) Lymph # (Auto) [place] # (Auto) Eos # (Auto) Baso # (Auto) Abs Immat Gran (auto) Absolute Neuts (auto) Absolute Nucleated RBC Nucleated RBC % % Immature Plt Fraction Sodium Potassium Chloride Carbon Dioxide Anion Gap BUN Creatinine Estim Creat Clear Calc Estimated GFR Glucose POC Capillary Glucose 116 H 123 H 136 H Calcium Total Bilirubin AST ALT Alkaline Phosphatase Total Protein Albumin Carcinoembryonic Ag 01/23/25 01/24/25 23:29 05:09 WBC 5.8 RBC 4.67 Hgb 13.3 L Hct 41.3 L MCV 88.4 MCH 28.5 MCHC 32.2 RDW 14.1 Plt Count 90 L MPV 11.6 H Immature Gran % (Auto) 0.7 H Neut % (Auto) 67.6 Lymph % (Auto) 22.1 [place] % (Auto) 8.6 H Eos % (Auto) 0.5 Baso % (Auto) 0.5 Lymph # (Auto) 1.29 [place] # (Auto) 0.5 Eos # (Auto) 0.0 Baso # (Auto) 0.0 Abs Immat Gran (auto) 0.04 H Absolute Neuts (auto) 3.9 Absolute Nucleated RBC 0.000 Nucleated RBC % 0.0 % Immature Plt Fraction 6.6 Sodium 140 Potassium 4.2 Chloride 110 H Carbon Dioxide 24 Anion Gap 6 BUN 17 Creatinine 0.97 Estim Creat Clear Calc 67 Estimated GFR > 60 Glucose 147 H POC Capillary Glucose 202 H Calcium 8.0 L Total Bilirubin 0.4 AST 23 ALT 14 Alkaline Phosphatase 61 Total Protein 5.8 L Albumin 3.3 L Carcinoembryonic Ag 1.8 Quality VTE Prophylaxis VTE prophylaxis: mechanical ordered
--- NOTE | 2025-01-24 14:52 | P.PNGS_ITS ---
Progress Note: A&P Assessment and Plan (1) Partial small bowel obstruction: Code(s): K56.600 - Partial intestinal obstruction, unspecified as to cause Status: Resolved Assessment and Plan: Advance to soft diabetic diet, increase activity, doing well. (2) History of laparoscopy: Code(s): Z98.890 - Other specified postprocedural states Status: Acute Assessment and Plan: Wounds healing well. Minimal discomfort. Pathology is pending. Subjective Subjective Date/Time Seen: 01/24/25 14:52 Patient reports: no new complaints, tolerating liquids well, voiding w/o difficulty, bowel movement and afebrile Exam Const: General: comfortable, alert and awake Orientation/consciousness: patient oriented x3 GI: Inspection: non-distended, incision (Healing well) and scaphoid GI Palp: Yes Soft to palpation, No Tenderness to palpation present (GI) and No Guarding due to palpation present (GI) Auscultation: normal bowel sounds Objective Data Vital Signs Vital Signs: Vital Signs - 24 hr 01/23/25 16:25 01/23/25 16:30 01/23/25 16:45 Temperature 36.8 C Pulse Rate 98 98 100 Respiratory Rate 16 12 13 Blood Pressure 170/66 H 174/71 H 162/65 H Pulse Oximetry 100 93 92 Oxygen Delivery Simple Face Mask Room Air Room Air Oxygen Flow Rate 10 01/23/25 17:00 01/23/25 17:15 01/23/25 17:24 Temperature Pulse Rate 94 95 94 Respiratory Rate 12 12 12 Blood Pressure 149/58 H 145/62 H 145/64 H Pulse Oximetry 92 93 93 Oxygen Delivery Room Air Room Air Room Air Oxygen Flow Rate 01/23/25 17:45 01/23/25 18:00 01/23/25 19:05 Temperature 36.9 C 36.9 C 37.0 C Pulse Rate 93 94 96 Respiratory Rate 20 18 98 H Blood Pressure 156/73 H 154/72 H 151/69 H Pulse Oximetry 98 97 Oxygen Delivery Oxygen Flow Rate 01/23/25 20:00 01/23/25 20:43 01/23/25 22:00 Temperature 36.5 C 36.8 C Pulse Rate 96 96 81 Respiratory Rate 18 18 18 Blood Pressure 156/57 H 116/42 L Pulse Oximetry 91 91 96 Oxygen Delivery Room Air Oxygen Flow Rate 01/24/25 00:43 01/24/25 04:43 01/24/25 06:00 Temperature 36.6 C 36.3 C L 36.3 C L Pulse Rate 75 72 70 Respiratory Rate 18 18 18 Blood Pressure 132/50 L 149/76 H 145/74 H Pulse Oximetry 97 96 100 Oxygen Delivery Oxygen Flow Rate 01/24/25 08:43 01/24/25 12:43 Temperature 36.4 C L 36.3 C L Pulse Rate 66 63 Respiratory Rate 16 16 Blood Pressure 166/74 H 155/70 H Pulse Oximetry 100 99 Oxygen Delivery Oxygen Flow Rate Intake/Output Intake/Output: Intake & Output 01/21/25 01/22/25 01/23/25 01/24/25 23:59 23:59 23:59 23:59 Intake Total 650 2550 2810 1118 Output Total 1250 250 700 Balance 650 1300 2560 418 Meds/Results Medications: Active Medications Generic Name Dose Route Start Last Admin Trade Name Freq PRN Reason Stop Dose Admin Acetaminophen 1,000 mg 01/23/25 17:49 Acetaminophen 500 Mg Tablet PO Q6H PRN Mild Pain (1-3) or Fever Hydrocodone Bitart/Acetaminophen 1 tab 01/23/25 17:49 Hydrocodone/Acetaminophen (*Crx) 5-325 Mg Tablet PO Q4H PRN Pain Rated 4-6 Atorvastatin Calcium 40 mg 01/22/25 09:00 01/24/25 09:27 Atorvastatin 40 Mg Tablet PO 40 mg DAILY SILVANA Administration Dextrose 12.5 gm 01/21/25 19:26 Dextrose 50% 25 Gm/50 Ml Syringe IV PUSH PRN PRN Hypoglycemia Protocol Enoxaparin Sodium 40 mg 01/22/25 09:00 01/24/25 09:27 Enoxaparin 40 Mg/0.4 Ml Syringe SUB-Q 40 mg DAILY SILVANA Administration Glucagon 1 mg 01/21/25 19:26 Glucagon For Inj 1 Mg Vial IM PRN PRN Hypoglycemia Protocol Glucose 15 gm 01/21/25 19:26 Glucose Oral Gel 15 Gm Of Glucse In 37.5 Gm Tube PO PRN PRN Hypoglycemia Protocol Hydralazine HCl 10 mg 01/23/25 07:46 Hydralazine Hcl 20 Mg/Ml Vial IV PUSH Q8H PRN Blood Pressure - High Levetiracetam 1,000 mg in 100 mls @ 400 mls/hr 01/21/25 21:00 01/24/25 10:46 Keppra Iv IVPB 400 mls/hr Q12HR SILVANA Administration Dextrose 1,000 mls @ 100 mls/hr 01/21/25 19:26 Dextrose 5% 1,000 Ml IVPB PRN PRN Hypoglycemia Protocol Insulin Aspart 2 - 5 units 01/22/25 00:00 01/24/25 12:41 Insulin Aspart (*Bkc) 100 Units/Ml SUB-Q Not Given Q6HR [facility] Protocol Lacosamide 100 mg 01/22/25 09:00 01/24/25 09:27 Lacosamide (*Crx) 100 Mg Tablet PO 100 mg DAILY SILVANA Administration Morphine Sulfate 2 mg 01/24/25 14:51 Morphine Sulfate (*Crx) 4 Mg/Ml Inj IV PUSH Q3H PRN Pain Rated 7-10 Morphine Sulfate 1 mg 01/24/25 14:51 Morphine Sulfate (*Crx) 2 Mg/Ml Inj IV PUSH Q3H PRN Pain Rated 4-6 Ondansetron HCl 4 mg 01/22/25 18:07 Ondansetron Inj 4 Mg/2 Ml Vial IV PUSH Q6H PRN Nausea And Vomiting Ondansetron HCl 4 mg 01/23/25 14:05 Ondansetron Inj 4 Mg/2 Ml Vial IV PUSH ONCE PRN Nausea Oxycodone HCl 5 mg 01/23/25 17:49 01/24/25 12:38 Oxycodone Hcl (*Crx) 5 Mg Tab Ir PO 5 mg Q4H PRN Administration Pain Rated 7-10 Pantoprazole Sodium 40 mg 01/25/25 09:00 Pantoprazole 40 Mg Tablet PO QAM SILVANA Pregabalin 150 mg 01/22/25 09:00 01/24/25 09:27 Pregabalin (*Crx) 75 Mg Capsule PO 150 mg QAM SILVANA Administration Zonisamide 200 mg 01/22/25 09:00 01/24/25 09:27 Zonisamide 100 Mg Capsule PO 200 mg DAILY SILVANA Administration Radiology Results: ITS Impressions Chest X-Ray 01/21/25 11:48 IMPRESSION: 1: NO ACUTE CARDIOPULMONARY DISEASE. Chest/Abdomen/Pelvis CTA 01/21/25 12:55 IMPRESSION: 1. There are a few dilated small bowel loops in the right abdomen and pelvis with a small amount of fluid and surrounding fat stranding. The finding are concerning for at least a partial small bowel obstruction. Follow-up is r ecommended. 2. There are a few small to moderate-sized groundglass opacity scattered throughout both lungs most prominent in the right upper lobe posteriorly. Differential includes but is not limited to edema, pneumonia or hypersensitivity pneumonitis. Recommend follow-up to resolution. A follow-up chest CT in 2-4 weeks is recommended to assess for interval clearance. 3. Concentric thickening of the howard of the mildly distended bladder. Differential includes incomplete bladder wall distention versus cystitis. 4. Mild splenomegaly. Abdomen X-Ray 01/21/25 16:12 IMPRESSION: 1. Nasogastric tube in expected position with distal tip in proximal side port in the stomach. Small Bowel X-Ray 01/22/25 17:16 IMPRESSION: 1. Delayed transit of contrast in the colon which takes between 3-4.5 hours without significant dilation of the small bowel consistent with with ileus versus partial small bowel obstruction. Would favor the latter given the transition point at the terminal ileum where there is some stranding suggesting terminal ileitis on prior CT. 2. Large right renal stone.. Labs Labs: Laboratory Results - last 24 hr 01/23/25 01/23/25 01/24/25 16:32 23:29 05:09 WBC 5.8 RBC 4.67 Hgb 13.3 L Hct 41.3 L MCV 88.4 MCH 28.5 MCHC 32.2 RDW 14.1 Plt Count 90 L MPV 11.6 H Immature Gran % (Auto) 0.7 H Neut % (Auto) 67.6 Lymph % (Auto) 22.1 [place] % (Auto) 8.6 H Eos % (Auto) 0.5 Baso % (Auto) 0.5 Lymph # (Auto) 1.29 [place] # (Auto) 0.5 Eos # (Auto) 0.0 Baso # (Auto) 0.0 Abs Immat Gran (auto) 0.04 H Absolute Neuts (auto) 3.9 Absolute Nucleated RBC 0.000 Nucleated RBC % 0.0 % Immature Plt Fraction 6.6 Sodium 140 Potassium 4.2 Chloride 110 H Carbon Dioxide 24 Anion Gap 6 BUN 17 Creatinine 0.97 Estim Creat Clear Calc 67 Estimated GFR > 60 Glucose 147 H POC Capillary Glucose 136 H 202 H Calcium 8.0 L Total Bilirubin 0.4 AST 23 ALT 14 Alkaline Phosphatase 61 Total Protein 5.8 L Albumin 3.3 L Carcinoembryonic Ag 1.8 01/24/25 12:13 WBC RBC Hgb Hct MCV MCH MCHC RDW Plt Count MPV Immature Gran % (Auto) Neut % (Auto) Lymph % (Auto) [place] % (Auto) Eos % (Auto) Baso % (Auto) Lymph # (Auto) [place] # (Auto) Eos # (Auto) Baso # (Auto) Abs Immat Gran (auto) Absolute Neuts (auto) Absolute Nucleated RBC Nucleated RBC % % Immature Plt Fraction Sodium Potassium Chloride Carbon Dioxide Anion Gap BUN Creatinine Estim Creat Clear Calc Estimated GFR Glucose POC Capillary Glucose 155 H Calcium Total Bilirubin AST ALT Alkaline Phosphatase Total Protein Albumin Carcinoembryonic Ag
[2025-01-25 05:37] VITALS: BP 157/83; PULSE 71; RESP 16; TEMP 36.4; O2SAT 99
[2025-01-25] MEDS: oxyCODONE HCL (*CRX) 5 MG TAB IR PO ×2 (06:06→18:03)
--- NOTE | 2025-01-25 07:43 | P.PNIM_ITS ---
Progress Note: A&P Assessment and Plan (1) Partial small bowel obstruction: Code(s): K56.600 - Partial intestinal obstruction, unspecified as to cause Status: Resolved Assessment and Plan: On admission, Chest/abdomen/pelvis shows a few dilated small bowel loops in the right abdomen and pelvis was the small amount of fluid and surrounding fat stranding that suggests partial small-bowel obstruction. Surgery consulted, recommend NGT with low intermittent suction, IV fluid and NPO No leukocytosis/fever-hemodynamically stable, blood culture no growth to date Discontinued yesterday by surgery: ceftriaxone and Flagyl 01/23/2025, underwent robotic assisted laparoscopy adhesiolysis. Tissue biopsy pending. CA-125 28 which is within normal range. CEA cancer marker 1.8, < 3 is normal Diet advanced by surgery-tolerated the diet well If surgery decided to discharge, ok to discharge him (2) Hypertension: Qualifiers: Hypertension type: primary hypertension Qualified Code(s): I10 - Essential (primary) hypertension Code(s): I10 - Essential (primary) hypertension Status: Chronic Assessment and Plan: Maintain BP less than 140/80 (3) Hyperlipidemia: Qualifiers: Hyperlipidemia type: moderate mixed hyperlipidemia not requiring statin therapy Qualified Code(s): E78.2 - Mixed hyperlipidemia Code(s): E78.5 - Hyperlipidemia, unspecified Status: Acute Assessment and Plan: Will continue statin once he is able to take medication by mouth (4) DM2 (diabetes mellitus, type 2): Qualifiers: Diabetes mellitus complication status: without complication Diabetes mellitus [facility] insulin use: with [facility] use Qualified Code(s): E11.9 - Type 2 diabetes mellitus without complications; Z79.4 - [facility] (current) use of insulin Code(s): E11.9 - Type 2 diabetes mellitus without complications Status: Chronic Assessment and Plan: 11/25/2024 A1c 6.9% POCT, sliding scale, hypoglycemia protocol Will continue Lantus (5) Seizures: Code(s): R56.9 - Unspecified convulsions Status: Acute Assessment and Plan: Continue Keppra, zonegran and vimpat (6) Splenomegaly: Code(s): R16.1 - Splenomegaly, not elsewhere classified Status: Acute Assessment and Plan: Seen previously on CTs Time Spent With Patient Time: 25 minutes Subjective Date/time seen: 01/25/25 07:43 Interval history: Dane is tolerating advanced diet. Denies nausea or vomiting. He passed flatus. He denies having a bowel with overnight. Review of Systems Review of Systems: 12 systems were reviewed and are negativ e except for as per HPI. All systems reviewed & are unremarkable except as noted in HPI and below Exam Narrative: APPEARANCE: Obese, comfortable, no acute distress EYES: EOMI HEENT: Normocephalic, atraumatic, OMM RESPIRATORY: No respiratory distress Clear to auscultation bilaterally with no rhonchi wheezing or rales. CARDIOVASCULAR: RRR, S1 and S2 without murmurs rubs or gallops. ABDOMINAL: Abdominal distension, tender to palpation, negative for guarding/peritonitis MSK: Moves his extremities spontaneously NEURO: Awake and alert. Following commands, speech normal, no focal deficits SKIN:: Warm, dry. No rashes lesions or abrasions PSYCHIATRIC: Normal affect/mood Objective Data Vital Signs Vital Signs: Vital Signs - 24 hr 01/24/25 08:43 01/24/25 12:43 01/24/25 20:00 Temperature 36.4 C L 36.3 C L Pulse Rate 66 63 69 Respiratory Rate 16 16 18 Blood Pressure 166/74 H 155/70 H Pulse Oximetry 100 99 96 Oxygen Delivery Room Air 01/24/25 20:45 01/24/25 20:45 01/25/25 05:37 Temperature 36.6 C 36.4 C L Pulse Rate 69 71 Respiratory Rate 18 16 Blood Pressure 145/71 H 157/83 H Pulse Oximetry 96 99 Oxygen Delivery Intake/Output Intake/Output: Intake & Output 01/22/25 01/23/25 01/24/25 01/25/25 23:59 23:59 23:59 23:59 Intake Total 2550 2810 1678 550 Output Total 8858 141 7072 400 Balance 1300 2560 -997 150 Meds/Results Medications: Active Medications Generic Name Dose Route Start Last Admin Trade Name Freq PRN Reason Stop Dose Admin Acetaminophen 1,000 mg 01/23/25 17:49 Acetaminophen 500 Mg Tablet PO Q6H PRN Mild Pain (1-3) or Fever Hydrocodone Bitart/Acetaminophen 1 tab 01/23/25 17:49 Hydrocodone/Acetaminophen (*Crx) 5-325 Mg Tablet PO Q4H PRN Pain Rated 4-6 Atorvastatin Calcium 40 mg 01/22/25 09:00 01/24/25 09:27 Atorvastatin 40 Mg Tablet PO 40 mg DAILY SILVANA Administration Dextrose 12.5 gm 01/21/25 19:26 Dextrose 50% 25 Gm/50 Ml Syringe IV PUSH PRN PRN Hypoglycemia Protocol Enoxaparin Sodium 40 mg 01/22/25 09:00 01/24/25 09:27 Enoxaparin 40 Mg/0.4 Ml Syringe SUB-Q 40 mg DAILY SILVANA Administration Glucagon 1 mg 01/21/25 19:26 Glucagon For Inj 1 Mg Vial IM PRN PRN Hypoglycemia Protocol Glucose 15 gm 01/21/25 19:26 Glucose Oral Gel 15 Gm Of Glucse In 37.5 Gm Tube PO PRN PRN Hypoglycemia Protocol Hydralazine HCl 10 mg 01/23/25 07:46 Hydralazine Hcl 20 Mg/Ml Vial IV PUSH Q8H PRN Blood Pressure - High Levetiracetam 1,000 mg in 100 mls @ 400 mls/hr 01/21/25 21:00 01/24/25 21:29 Keppra Iv IVPB Infused Q12HR SILVANA Infusion Dextrose 1,000 mls @ 100 mls/hr 01/21/25 19:26 Dextrose 5% 1,000 Ml IVPB PRN PRN Hypoglycemia Protocol Insulin Aspart 2 - 5 units 01/25/25 08:00 01/25/25 07:35 Insulin Aspart (*Bkc) 100 Units/Ml SUB-Q Not Given TIDWM [facility] Protocol Lacosamide 100 mg 01/22/25 09:00 01/24/25 09:27 Lacosamide (*Crx) 100 Mg Tablet PO 100 mg DAILY SILVANA Administration Morphine Sulfate 2 mg 01/24/25 14:57 Morphine Sulfate (*Crx) 2 Mg/Ml Inj IV PUSH Q3H PRN Pain Rated 7-10 Morphine Sulfate 1 mg 01/24/25 14:51 Morphine Sulfate (*Crx) 2 Mg/Ml Inj IV PUSH Q3H PRN Pain Rated 4-6 Ondansetron HCl 4 mg 01/22/25 18:07 Ondansetron Inj 4 Mg/2 Ml Vial IV PUSH Q6H PRN Nausea And Vomiting Ondansetron HCl 4 mg 01/23/25 14:05 Ondansetron Inj 4 Mg/2 Ml Vial IV PUSH ONCE PRN Nausea Oxycodone HCl 5 mg 01/23/25 17:49 01/25/25 06:06 Oxycodone Hcl (*Crx) 5 Mg Tab Ir PO 5 mg Q4H PRN Administration Pain Rated 7-10 Oxycodone HCl 2.5 mg 01/24/25 15:17 Oxycodone Hcl (*Crx) 2.5 Mg Tab Ir PO Q4H PRN Pain Rated 4-6 Pantoprazole Sodium 40 mg 01/25/25 09:00 Pantoprazole 40 Mg Tablet PO QAM SILVANA Pregabalin 150 mg 01/22/25 09:00 01/24/25 09:27 Pregabalin (*Crx) 75 Mg Capsule PO 150 mg QAM SILVANA Administration Zonisamide 200 mg 01/22/25 09:00 01/24/25 09:27 Zonisamide 100 Mg Capsule PO 200 mg DAILY SILVANA Administration Radiology Results: ITS Impressions Chest X-Ray 01/21/25 11:48 IMPRESSION: 1: NO ACUTE CARDIOPULMONARY DISEASE. Chest/Abdomen/Pelvis CTA 01/21/25 12:55 IMPRESSION: 1. There are a few dilated small bowel loops in the right abdomen and pelvis with a small amount of fluid and surrounding fat stranding. The finding are concerning for at least a partial small bowel obstruction. Follow-up is recommended. 2. There are a few small to moderate-sized groundglass opacity scattered throughout both lungs most prominent in the right upper lobe posteriorly. Differential includes but is not limited to edema, pneumonia or hypersensitivity pneumonitis. Recommend follow-up to resolution. A follow-up chest CT in 2-4 weeks is recommended to assess for interval clearance. 3. Concentric thickening of the howard of the mildly distended bladder. Differential includes incomplete bladder wall distention versus cystitis. 4. Mild splenomegaly. Abdomen X-Ray 01/21/25 16:12 IMPRESSION: 1. Nasogastric tube in expected position with distal tip in proximal side port in the stomach. Small Bowel X-Ray 01/22/25 17:16 IMPRESSION: 1. Delayed transit of contrast in the colon which takes between 3-4.5 hours without significant dilation of the small bowel consistent with with ileus versus partial small bowel obstruction. Would favor the latter given the trans ition point at the terminal ileum where there is some stranding suggesting terminal ileitis on prior CT. 2. Large right renal stone.. Labs Labs: Laboratory Results - last 24 hr 01/24/25 01/24/25 01/24/25 05:09 12:13 18:22 POC Capillary Glucose 155 H 158 H CA 125 Antigen 28.0 01/24/25 01/25/25 19:52 07:28 POC Capillary Glucose 160 H 156 H CA 125 Antigen Quality VTE Prophylaxis VTE prophylaxis: mechanical ordered and pharmacologic ordered (Lovenox)
[2025-01-25 07:51] LABS: Hematocrit 43.8 % (42.0-52.0); Hemoglobin 14.2 g/dL (14.0-18.0); Immature Granulocyte Percent A 0.3 % (0-0.5); Immature Platelet Fraction Pct 6.4 % (0.9-11.2); Lymphocytes Absolute Auto 1.05 K/mm3 (0.9-3.2); Mean Corpuscular HGB Conc 32.4 g/dl (32-36); Mean Corpuscular Hemoglobin 28.1 pg (26-34); Mean Corpuscular Volume 86.7 fl (80-100); Nucleated Red Blood Cells Absolute Auto 0.000 K/mm3 (0.0-0.012); Nucleated Red Blood Cells Perc 0.0 % (0.0-0.2); Platelet Count Result 83 k/mm3 (150-375); Red Blood Count 5.05 M/mm3 (4.6-6.20); White Blood Count 5.8 K/mm3 (4.5-10.0)
[2025-01-25 08:15] LABS: Alanine Aminotransferase 18 U/L (6-50); Albumin Level 3.6 g/dL (3.5-5.1); Alkaline Phosphatase 69 U/L (38-126); Anion Gap 7 mmol/L (4-12); Aspartate Amino Transferase 35 U/L (17-59); Bilirubin,Total 0.7 mg/dL (0.2-1.3); Blood Urea Nitrogen 11 mg/dL (9-20); Calcium 8.5 mg/dL (8.4-10.2); Carbon Dioxide 24 mmol/L (22-30); Chloride 109 mmol/L (98-107); Estimated CRCL calculation 65 ml/min; Estimated Glomerular Filt Rate > 60; Glucose 156 mg/dL (65-110); Potassium 3.8 mmol/L (3.4-5.0); Sodium 140 mmol/L (137-145); Total Protein 6.3 g/dL (6.3-8.2)
[2025-01-25] MEDS: PANTOPRAZOLE 40 MG TABLET PO (08:39)
[2025-01-25] MEDS: ZONISAMIDE 100 MG CAPSULE 200 MG PO (08:39)
[2025-01-25] MEDS: LACOSAMIDE (*CRX) 100 MG TABLET PO (08:39)
[2025-01-25] MEDS: PREGABALIN (*CRX) 75 MG CAPSULE 150 MG PO (08:39)
[2025-01-25] MEDS: ENOXAPARIN 40 MG/0.4 ML SYRINGE SUB-Q (08:39)
[2025-01-25] MEDS: ATORVASTATIN 40 MG TABLET PO (08:39)
[2025-01-25] MEDS: levETIRAcetam 1000MG/NACL100ML 1,000 MG/100 ML BAG 400 MG IVPB ×2 (08:40→20:51)
--- NOTE | 2025-01-25 11:38 | P.OP_ITS ---
Procedure Note - Detailed Date of Procedure 01/23/25 Pre-op Diagnosis Partial Small Bowel Obstruction Post-op Diagnosis Other (Peritoneal, omental, and small bowel nodules, partial SBO) Procedure Performed Diagnostic laparoscopy with laparoscopic incisional biopsy of peritoneum and omentum. Surgeon James Peoples MD [employer] DAMIR Judge Anesthesia General Indications Patient is a 74-year-old gentleman who has had multiple admissions to the hospital this year for partial small-bowel obstructions which have resolved with non operative management. He was again admitted 3 days ago and nasogastric tube decompression was initiated. The small bowel water-soluble study was performed showing transit of contrast into the colon at [id number] consistent with delayed transit and likely partial small-bowel obstruction. As the patient had multiple admissions to the hospital for partial small-bowel obstructions which had always resolved with non operative management I did discuss with him proceeding with a diagnostic laparoscopy this if adhesions was causing the issue. He has elected to proceed with a diagnostic laparoscopy. Findings Upon entering the abdomen laparoscopically and achieving pneumoperitoneum I saw multiple areas of whitish plaques and whitish nodules on the lower abdominal peritoneum. Also noted were the same appearing type lesions on multiple loops of small bowel on the serosa as well as area is on the mesentery and omentum. There was no significantly dilated small bowel to suggest high-grade small-bowel obstruction. Description of Procedure After informed consent was obtained the patient was brought to the operating room was placed supine position and general endotracheal anesthesia was administered. A Amin catheter was placed decompress the bladder. A nasogastric tube was also already in place. A time-out was then performed correctly identifying the patient as well as procedure to be performed. He was already on scheduled IV antibiotics. I then utilized a 5mm Optiview port to enter the abdomen left upper quadrant. Upon entering the abdomen laparoscopically and I achieved pneumoperitoneum and immediately saw multiple ar eas of whitish plaque and nodules on the lower abdominal peritoneal surfaces. He also has an multiple white plaques on the serosa of the small bowel. The small bowel was not particularly dilated in the way. Also noted was thickening of the omentum and multiple areas of white plaque and nodules on the omentum. I did not see any obvious areas of adhesions causing small bowel obstruction. Given that he did not have any evidence of high-grade small-bowel obstruction I was reluctant to perform any major resection of the bowel or major adhesiolysis. There Was certainly no reason conversion to an open procedure. the appearance of the lesions on the peritoneum as well as the serosa of the small bowel and omentum was suspicious for possible carcinomatosis of the abdomen. another etiology the came to my was possible abdominal tuberculosis. However the patient had not been out of the country and had no risk factors for developing abdominal tuberculosis. At this point I felt that would be best to perform an incisional biopsy reports the peritoneum including some of the lesions as well as a portion of the omentum. I placed additional laparoscopic trocar ports across the left lateral abdominal wall under direct visualization. Working through these ports utilizing laparoscopic instruments and a laparoscopic LigaSure energy device I proceeded to remove a portion of the peritoneum along the right side of the median umbilical ligament in an incisional fashion which included a large piece of hard whitish plaque and nodular lesion. I then also proceeded to incise a portion of the omentum and removed a part of it with the same types of lesions in the omentum attached to the transverse portion of the colon utilizing LigaSure device. Both pieces of tissue were then placed into an Endo-Catch bag and brought out through the left upper quadrant trocar port site after was switched out to a 12mm trocar port. I then looked at the areas of biopsy in the right hemostatic. I then removed all the trocar ports under direct visualization and allowed the abdomen decompressed. All the port sites were hemostatic. I then irrigated the incisions with sterile saline solution and closed the trocar ports at the fascial level utilizing 0 Vicryl suture with a suture assist needle. I then closed the skin on the port site incision with a running subcuticular 4 Monocryl suture. The incisions were then cleaned and then skin glue was applied. The patient tolerated the procedure well no complications. All sponges, needles, and instrument counts were correct at the end procedure. EBL was _5__cc. The patient was awakened and taken to recovery in stable and satisfactory condition. At the end the procedure nasogastric tube was removed and the Amin catheter was removed. Implants None Estimated Blood Loss 5 Urine Output 700 Drains No Packing No Pathology Yes ( incisional biopsy specimens from the peritoneum and omentum sent to pathology) Complications No immediate complications Condition Stable Disposition PACU [facility] Billing Surgery - Charge Forward: Surgery Billing
[2025-01-25 14:00] VITALS: BP 156/79; PULSE 69; RESP 16; TEMP 36.4; O2SAT 98
--- NOTE | 2025-01-25 14:54 | PM.PNGS ---
Progress Note: A&P Assessment and Plan (1) Partial small bowel obstruction: Code(s): K56.600 - Partial intestinal obstruction, unspecified as to cause Status: Resolved Assessment and Plan: will get obstructive series to better assess patient's abdominal discomfort (2) Abdominal pain: Qualifiers: Abdominal location: lower abdomen, unspecified Qualified Code(s): R10.30 - Lower abdominal pain, unspecified Code(s): R10.9 - Unspecified abdominal pain Status: Acute Assessment and Plan: he feels as though this is due to not having a bowel movement. Obstructive series as above. Will give 2 collects tabs (3) History of laparoscopy: Code(s): Z98.890 - Other specified postprocedural states Status: Acute Assessment and Plan: peritoneal biopsies pending Subjective Subjective Date/Time Seen: 01/25/25 14:54 Post Op day: 2 Patient reports: still having pain ( lower abdominal pain, constipation), tolerating a regular diet ( not eating a lot but he says this is normal for him. He is eating about as much as he usually does.), voiding w/o difficulty, no bowel movement and afebrile Review of Systems Review of Systems: All systems reviewed & are unremarkable except as noted in HPI and below ( HPI) Exam Const: General: healthy appearing, comfortable, alert, awake and well groomed Orientation/consciousness: patient oriented x3 GI: Inspection: non-distended and incision ( healing well) GI Palp: Yes Soft to palpation, No Tenderness to palpation present (GI), No Guarding due to palpation present (GI), No Hernia present and No Palpable mass present Auscultation: normal bowel sounds Objective Data Vital Signs Vital Signs: Vital Signs - 24 hr 01/24/25 20:00 01/24/25 20:45 01/24/25 20:45 Temperature 36.6 C Pulse Rate 69 69 Respiratory Rate 18 18 Blood Pressure 145/71 H Pulse Oximetry 96 96 Oxygen Delivery Room Air 01/25/25 05:37 01/25/25 14:00 Temperature 36.4 C L 36.4 C Pulse Rate 71 69 Respiratory Rate 16 16 Blood Pressure 157/83 H 156/79 H Pulse Oximetry 99 98 Oxygen Delivery Intake/Output Intake/Output: Intake & Output 01/22/25 01/23/25 01/24/25 01/25/25 23:59 23:59 23:59 23:59 Intake Total 2550 4173 1671 890 Output Total [phone] 1100 Balance 1300 9063 -705 -065 Meds/Results Medications: Active Medications Generic Name Dose Route Start Last Admin Trade Name Freq PRN Reason Stop Dose Admin Acetaminophen 1,000 mg 01/23/25 17:49 Acetaminophen 500 Mg Tablet PO Q6H PRN Mild Pain (1-3) or Fever Hydrocodone Bitart/Acetaminophen 1 tab 01/23/25 17:49 Hydrocodone/Acetaminophen (*Crx) 5-325 Mg Tablet PO Q4H PRN Pain Rated 4-6 Atorvastatin Calcium 40 mg 01/22/25 09:00 01/25/25 08:39 Atorvastatin 40 Mg Tablet PO 40 mg DAILY SILVANA Administration Bisacodyl 10 mg 01/25/25 14:51 Bisacodyl 5 Mg Tablet Ec PO 01/25/25 14:52 ONCE ONE Dextrose 12.5 gm 01/21/25 19:26 Dextrose 50% 25 Gm/50 Ml Syringe IV PUSH PRN PRN Hypoglycemia Protocol Enoxaparin Sodium 40 mg 01/22/25 09:00 01/25/25 08:39 Enoxaparin 40 Mg/0.4 Ml Syringe SUB-Q 40 mg DAILY SILVANA Administration Glucagon 1 mg 01/21/25 19:26 Glucagon For Inj 1 Mg Vial IM PRN PRN Hypoglycemia Protocol Glucose 15 gm 01/21/25 19:26 Glucose Oral Gel 15 Gm Of Glucse In 37.5 Gm Tube PO PRN PRN Hypoglycemia Protocol Hydralazine HCl 10 mg 01/23/25 07:46 Hydralazine Hcl 20 Mg/Ml Vial IV PUSH Q8H PRN Blood Pressure - High Levetiracetam 1,000 mg in 100 mls @ 400 mls/hr 01/21/25 21:00 01/25/25 08:55 Keppra Iv IVPB Infused Q12HR SILVANA Infusion Dextrose 1,000 mls @ 100 mls/hr 01/21/25 19:26 Dextrose 5% 1,000 Ml IVPB PRN PRN Hypoglycemia Protocol Insulin Aspart 2 - 5 units 01/25/25 08:00 01/25/25 12:02 Insulin Aspart (*Bkc) 100 Units/Ml SUB-Q Not Given TIDWM SILVANA Protocol Lacosamide 100 mg 01/22/25 09:00 01/25/25 08:39 Lacosamide (*Crx) 100 Mg Tablet PO 100 mg DAILY SILVANA Administration Morphine Sulfate 2 mg 01/24/25 14:57 Morphine Sulfate (*Crx) 2 Mg/Ml Inj IV PUSH Q3H PRN Pain Rated 7-10 Morphine Sulfate 1 mg 01/24/25 14:51 Morphine Sulfate (*Crx) 2 Mg/Ml Inj IV PUSH Q3H PRN Pain Rated 4-6 Ondansetron HCl 4 mg 01/22/25 18:07 Ondansetron Inj 4 Mg/2 Ml Vial IV PUSH Q6H PRN Nausea And Vomiting Ondansetron HCl 4 mg 01/23/25 14:05 Ondansetron Inj 4 Mg/2 Ml Vial IV PUSH ONCE PRN Nausea Oxycodone HCl 5 mg 01/23/25 17:49 01/25/25 06:06 Oxycodone Hcl (*Crx) 5 Mg Tab Ir PO 5 mg Q4H PRN Administration Pain Rated 7-10 Oxycodone HCl 2.5 mg 01/24/25 15:17 Oxycodone Hcl (*Crx) 2.5 Mg Tab Ir PO Q4H PRN Pain Rated 4-6 Pantoprazole Sodium 40 mg 01/25/25 09:00 01/25/25 08:39 Pantoprazole 40 Mg Tablet PO 40 mg QAM SILVANA Administration Pregabalin 150 mg 01/22/25 09:00 01/25/25 08:39 Pregabalin (*Crx) 75 Mg Capsule PO 150 mg QAM SILVANA Administration Zonisamide 200 mg 01/22/25 09:00 01/25/25 08:39 Zonisamide 100 Mg Capsule PO 200 mg DAILY SILVANA Administration Radiology Results: ITS Impressions Chest X-Ray 01/21/25 11:48 IMPRESSION: 1: NO ACUTE CARDIOPULMONARY DISEASE. Chest/Abdomen/Pelvis CTA 01/21/25 12:55 IMPRESSION: 1. There are a few dilated small bowel loops in the right abdomen and pelvis with a small amount of fluid and surrounding fat stranding. The finding are concerning for at least a partial small bowel obstruction. Follow-up is recommended. 2. There are a few small to moderate-sized groundglass opacity scattered throughout both lungs most prominent in the right upper lobe posteriorly. Differential includes but is not limited to edema, pneumonia or hypersensitivity pneumonitis. Recommend follow-up to resolution. A follow-up chest CT in 2-4 weeks is recommended to assess for interval clearance. 3. Concentric thickening of the howard of the mildly distended bladder. Differential includes incomplete bladder wall distention versus cystitis. 4. Mild splenomegaly. Abdomen X-Ray 01/21/25 16:12 IMPRESSION: 1. Nasogastric tube in expected position with distal tip in proximal side port in the stomach. Small Bowel X-Ray 01/22/25 17:16 IMPRESSION: 1. Delayed transit of contrast in the colon which takes between 3-4.5 hours without significant dilation of the small bowel consistent with with ileus versus partial small bowel obstruction. Would favor the latter given the transition point at the terminal ileum where there is some stranding suggesting terminal ileitis on prior CT. 2. Large right renal stone.. Labs Labs: Laboratory Results - last 24 hr 01/24/25 01/24/25 01/24/25 05:09 18:22 19:52 WBC RBC Hgb Hct MCV MCH MCHC RDW Plt Count MPV Immature Gran % (Auto) Neut % (Auto) Lymph % (Auto) [place] % (Auto) Eos % (Auto) Baso % (Auto) Lymph # (Auto) [place] # (Auto) Eos # (Auto) Baso # (Auto) Abs Immat Gran (auto) Absolute Neuts (auto) Absolute Nucleated RBC Nucleated RBC % % Immature Plt Fraction Sodium Potassium Chloride Carbon Dioxide Anion Gap BUN Creatinine Estim Creat Clear Calc Estimated GFR Glucose POC Capillary Glucose 158 H 160 H Calcium Total Bilirubin AST ALT Alkaline Phosphatase Total Protein Albumin CA 125 Antigen 28.0 01/25/25 01/25/25 01/25/25 07:27 07:28 11:46 WBC 5.8 RBC 5.05 Hgb 14.2 Hct 43.8 MCV 86.7 MCH 28.1 MCHC 32.4 RDW 14.1 Plt Count 83 L MPV 11.4 H Immature Gran % (Auto) 0.3 Neut % (Auto) 70.7 Lymph % (Auto) 18.2 L [place] % (Auto) 7.6 Eos % (Auto) 2.3 Baso % (Auto) 0.9 Lymph # (Auto) 1.05 [place] # (Auto) 0.4 Eos # (Auto) 0.1 Baso # (Auto) 0.1 Abs Immat Gran (auto) 0.02 Absolute Neuts (auto) 4.1 Absolute Nucleated RBC 0.000 Nucleated RBC % 0.0 % Immature Plt Fraction 6.4 Sodium 140 Potassium 3.8 Chloride 109 H Carbon Dioxide 24 Anion Gap 7 BUN 11 D Creatinine 0.99 Estim Creat Clear Calc 65 Estimated GFR > 60 Glucose 156 H POC Capillary Glucose 156 H 146 H Calcium 8.5 Total Bilirubin 0.7 AST 35 ALT 18 Alkaline Phosphatase 69 Total Protein 6.3 Albumin 3.6 CA 125 Antigen
[2025-01-25] MEDS: BISACODYL 5 MG TABLET EC 10 MG PO (15:33)
[2025-01-25 20:05] VITALS: BP 174/85; PULSE 74; RESP 16; TEMP 37.4; O2SAT 100
[2025-01-26 04:25] VITALS: BP 149/76; PULSE 67; RESP 16; TEMP 36.5; O2SAT 97
[2025-01-26 05:27] LABS: Hematocrit 43.2 % (42.0-52.0); Hemoglobin 14.2 g/dL (14.0-18.0); Immature Platelet Fraction Pct 7.2 % (0.9-11.2); Mean Corpuscular HGB Conc 32.9 g/dl (32-36); Mean Corpuscular Hemoglobin 28.3 pg (26-34); Mean Corpuscular Volume 86.2 fl (80-100); Red Blood Count 5.01 M/mm3 (4.6-6.20); White Blood Count 6.0 K/mm3 (4.5-10.0)
[2025-01-26 05:48] LABS: Alanine Aminotransferase 20 U/L (6-50); Albumin Level 3.4 g/dL (3.5-5.1); Alkaline Phosphatase 65 U/L (38-126); Anion Gap 7 mmol/L (4-12); Aspartate Amino Transferase 33 U/L (17-59); Bilirubin,Total 0.5 mg/dL (0.2-1.3); Blood Urea Nitrogen 14 mg/dL (9-20); Calcium 8.5 mg/dL (8.4-10.2); Carbon Dioxide 23 mmol/L (22-30); Chloride 109 mmol/L (98-107); Estimated CRCL calculation 65 ml/min; Estimated Glomerular Filt Rate > 60; Glucose 203 mg/dL (65-110); Potassium 3.8 mmol/L (3.4-5.0); Sodium 139 mmol/L (137-145); Total Protein 6.1 g/dL (6.3-8.2)
[2025-01-26 05:53] LABS: Anisocytosis 1+; Band Neutrophils Percent 1 % (0-6); Eosinophils Absolute Manual 0.18 K/mm3 (0.02-0.50); Eosinophils Percent Manual 3 % (0-4); Lymphocytes Absolute Manual 1.50 K/mm3 (1.1-4.5); Lymphocytes Percent Manual 25.0 % (18-44); Monocytes Absolute Manual 0.60 K/mm3 (0.1-0.90); Monocytes Percent Manual 10 % (3-9); Neutrophils Absolute Manual 3.72 K/mm3 (1.3-6.7); Neutrophils Percent Manual 61 % (46-73); Platelet Count Result 85 k/mm3 (150-375); Total Cells Counted 100
[2025-01-26 05:54] LABS: Schistocytes None Seen; Smudge Cells PRESENT
[2025-01-26] MEDS: PREGABALIN (*CRX) 75 MG CAPSULE 150 MG PO (10:26)
[2025-01-26] MEDS: ATORVASTATIN 40 MG TABLET PO (10:26)
[2025-01-26] MEDS: LACOSAMIDE (*CRX) 100 MG TABLET PO (10:26)
[2025-01-26] MEDS: PANTOPRAZOLE 40 MG TABLET PO (10:26)
[2025-01-26] MEDS: ZONISAMIDE 100 MG CAPSULE 200 MG PO (10:27)
[2025-01-26] MEDS: levETIRAcetam 1000MG/NACL100ML 1,000 MG/100 ML BAG 400 MG IVPB (10:27)
--- NOTE | 2025-01-26 12:45 | PM.DS ---
DS: Admitting Diagnosis Discharge Date 01/26/2025 Admitting Diagnosis Partial small bowel obstruction DS: Discharge Diagnosis Discharge Diagnosis (1) History of laparoscopy: Code(s): Z98.890 - Other specified postprocedural states Status: Acute (2) Seizures: Code(s): R56.9 - Unspecified convulsions Status: Acute (3) Splenomegaly: Code(s): R16.1 - Splenomegaly, not elsewhere classified Status: Acute (4) Lung abnormality: Code(s): J98.4 - Other disorders of lung Status: Acute (5) Abnormal CT lung screening: Code(s): R91.8 - Other nonspecific abnormal finding of lung field Status: Acute (6) Anxiety: Code(s): F41.9 - Anxiety disorder, unspecified Status: Acute Plan Follow-up with PCP DS: Summary Hospital Course Reason for hospitalization: Nausea/vomiting/abdominal station concern for partial small-bowel obstruction Hospital Course: Dane Parker is a 74 year old female with pmhx of epilepsy, insulin-dependent type 2 diabetes, hypertension, obesity was here for abdominal pain, nausea, vomiting, and abdominal distension concern for partial small-bowel obstruction. He had multiple admission for the same reason. Imaging did not show complete obstruction but there was a small bowel follow-through study that shows a delay transient which is concern for partial obstruction. Surgery was consulted, and patient underwent for robotic assisted laparoscopic surgery. He tolerated the surgery and he did well postoperatively. He had bowel movement and tolerated diet. Antibiotics discontinued. Patient remained hemodynamically stable and afebrile. Patient was discharged in stable condition. Time Spent with Patient Time attestation: Total time spent providing and/or coordinating discharge services: Exam Narrative: APPEARANCE: Obese, comfortable, no acute distress EYES: EOMI HEENT: Normocephalic, atraumatic, OMM RESPIRATORY: No respiratory distress Clear to auscultation bilaterally with no rhonchi wheezing or rales. CARDIOVASCULAR: RRR, S1 and S2 without murmurs rubs or gallops. ABDOMINAL: Abdominal distension, tender to palpation, negative for guarding/peritonitis MSK: Moves his extremities spontaneously NEURO: Awake and alert. Following commands, speech normal, no focal deficits SKIN:: Warm, dry. No rashes lesions or abrasions PSYCHIATRIC: Normal affect/mood DS: Data Data Completed and Pending Pending studies at discharge: Pending at discharge 08/29/25 15:49 Surgical [PTH] Routine 01/23/25 15:56 Surgical [PTH] Routine Labs on day of discharge: Labs from last 24 hours 01/26/25 01/26/25 01/26/25 11:53 07:42 05:07 WBC 6.0 RBC 5.01 Hgb 14.2 Hct 43.2 MCV 86.2 MCH 28.3 MCHC 32.9 RDW 13.9 Plt Count 85 L MPV 11.4 H Immature Gran % (Auto) Not Reportable Neut % (Auto) Not Reportable Lymph % (Auto) Not Reportable [place] % (Auto) Not Reportable Eos % (Auto) Not Reportable Baso % (Auto) Not Reportable Lymph # (Auto) Not Reportable [place] # (Auto) Not Reportable Eos # (Auto) Not Reportable Baso # (Auto) Not Reportable Abs Immat Gran (auto) Not Reportable Absolute Neuts (auto) Not Reportable Absolute Nucleated RBC Not Reportable Total Counted 100 Neutrophils % (Manual) 61 Band Neutrophils % 1 Lymphocytes % (Manual) 25.0 Monocytes % (Manual) 10 H Eosinophils % (Manual) 3 Nucleated RBC % Not Reportable Abs Neuts (Manual) 3.72 Abs Lymphs (Manual) 1.50 Abs Monocytes (Manual) 0.60 Absolute Eos (Manual) 0.18 Smudge Cells Present Platelet Estimate Decreased % Immature Plt Fraction 7.2 Anisocytosis 1+ Schistocytes None seen Sodium 139 Potassium 3.8 Chloride 109 H Carbon Dioxide 23 Anion Gap 7 BUN 14 Creatinine 0.99 Estim Creat Clear Calc 65 Estimated GFR > 60 Glucose 203 H POC Capillary Glucose 194 H 178 H Calcium 8.5 Total Bilirubin 0.5 AST 33 ALT 20 Alkaline Phosphatase 65 Total Protein 6.1 L Albumin 3.4 L 01/25/25 01/25/25 20:07 16:40 WBC RBC Hgb Hct MCV MCH MCHC RDW Plt Count MPV Immature Gran % (Auto) Neut % (Auto) Lymph % (Auto) [place] % (Auto) Eos % (Auto) Baso % (Auto) Lymph # (Auto) [place] # (Auto) Eos # (Auto) Baso # (Auto) Abs Immat Gran (auto) Absolute Neuts (auto) Absolute Nucleated RBC Total Counted Neutrophils % (Manual) Band Neutrophils % Lymphocytes % (Manual) Monocytes % (Manual) Eosinophils % (Manual) Nucleated RBC % Abs Neuts (Manual) Abs Lymphs (Manual) Abs Monocytes (Manual) Absolute Eos (Manual) Smudge Cells Platelet Estimate % Immature Plt Fraction Anisocytosis Schistocytes Sodium Potassium Chloride Carbon Dioxide Anion Gap BUN Creatinine Estim Creat Clear Calc Estimated GFR Glucose POC Capillary Glucose 171 H 146 H Calcium Total Bilirubin AST ALT Alkaline Phosphatase Total Protein Albumin Preliminary micro results at discharge 01/21/25 15:49 Blood Culture - Preliminary Blood 01/21/25 15:54 Blood Culture - Preliminary Blood Discharge Plan Discharge Attending physician on discharge: Dorota Townsend Consulting providers: James Peoples Discharging Clinician: Dorota Townsend Anticipated Discharge Date/Time: 01/26/25 12:42 Patient Disposition: Home Activity: unlimited Diet: diabetic Patient Language: Armenian Stand Alone Forms: General Discharge Information Follow-up/Referrals: Redd De Anda MD [Primary Care Provider, Internal Medicine] - 1 Week Discharge Medications: Continued pregabalin 150 mg capsule 150 mg PO QAM zonisamide 100 mg capsule 200 mg PO DAILY Rx Instructions: Take two capsules at bedtime lacosamide 100 mg tablet 100 mg PO DAILY levetiracetam [Keppra] 500 mg Tablet 1,000 mg PO QAM Qty: 30 0RF pregabalin [Lyrica] 50 mg Capsule 300 mg BYMOUTH HS Qty: 15 0RF levetiracetam [Keppra] 500 mg Tablet 1,000 mg PO HS atorvastatin 40 mg tablet 40 mg PO DAILY pantoprazole 40 mg tablet,delayed release (DR/EC) 40 mg PO DAILY multivit with min-folic acid 0.4 mg Tablet 1 tablet PO DAILY fluocinonide 0.05 % ointment 1 applic TOPICAL PRN Patient Comments: pt had old bedsore that occasionally has a spot that reappears; only uses when sore reappears; not here now 01/21/25 insulin aspart U-100 [Novolog FlexPen U-100 Insulin] 100 unit/mL (3 mL) insulin pen 1 - 15 unit SUBCUT TIDWMEAL insulin glargine [Lantus Solostar U-100 Insulin] 100 unit/mL (3 mL) insulin pen 40 unit SUBCUT DAILY Date of admission: 01/22/25 10:10 Primary Care Provider: Redd De Adna Admitting Provider: Brandan Lamar Attending physician on admission: Brandan Lamar Condition: Stable
--- NOTE | 2025-01-26 14:56 | PM.PNGS ---
Progress Note: A&P Assessment and Plan (1) Partial small bowel obstruction: Code(s): K56.600 - Partial intestinal obstruction, unspecified as to cause Status: Resolved (2) Abdominal pain: Qualifiers: Abdominal location: lower abdomen, unspecified Qualified Code(s): R10.30 - Lower abdominal pain, unspecified Code(s): R10.9 - Unspecified abdominal pain Status: Acute Assessment and Plan: patient did not recall his conversation with Dr. Peoples following surgery. I talked with him and his son today and explained the intraoperative findings and that biopsies were taken. I explained that the concern was that this may represent a type of cancer although at present there is no other indication of cancer. He will follow up with Dr. Peoples in 2 weeks. Okay to discharge today. Subjective Subjective Date/Time Seen: 01/26/25 14:56 Patient reports: feels better, pain is less, bowel movement and afebrile Exam Const: General: comfortable, alert and awake GI: Inspection: non-distended and incision ( HEALING NICELY) GI Palp: Yes Soft to palpation and No Tenderness to palpation present (GI) Auscultation: normal bowel sounds Objective Data Vital Signs Vital Signs: Vital Signs - 24 hr 01/25/25 20:05 01/26/25 04:25 01/26/25 08:00 Temperature 37.4 C 36.5 C Pulse Rate 74 67 Respiratory Rate 16 16 Blood Pressure 174/85 H 149/76 H Pulse Oximetry 100 97 Oxygen Delivery Room Air 01/26/25 08:00 Temperature Pulse Rate Respiratory Rate Blood Pressure Pulse Oximetry Oxygen Delivery Room Air Intake/Output Intake/Output: Intake & Output 01/23/25 01/24/25 01/25/25 01/26/25 23:59 23:59 23:59 23:59 Intake Total 2810 1678 1230 768 Output Total 250 1695 1400 Balance 5291 -905 -857 760 Meds/Results Radiology Results: ITS Impressions Chest X-Ray 01/21/25 11:48 IMPRESSION: 1: NO ACUTE CARDIOPULMONARY DISEASE. Chest/Abdomen/Pelvis CTA 01/21/25 12:55 IMPRESSION: 1. There are a few dilated small bowel loops in the right abdomen and pelvis with a small amount of fluid and surrounding fat stranding. The finding are concerning for at least a partial small bowel obstruction. Follow-up is recommended. 2. There are a few small to moderate-sized groundglass opacity scattered throughout both lungs most prominent in the right upper lobe posteriorly. Differential includes but is not limited to edema, pneumonia or hypersensitivity pneumonitis. Recommend follow-up to resolution. A follow-up chest CT in 2-4 weeks is recommended to assess for interval clearance. 3. Concentric thickening of the howard of the mildly distended bladder. Differential includes incomplete bladder wall distention versus cystitis. 4. Mild splenomegaly. Small Bowel X-Ray 01/22/25 17:16 IMPRESSION: 1. Delayed transit of contrast in the colon which takes between 3-4.5 hours without significant dilation of the small bowel consistent with with ileus versus partial small bowel obstruction. Would favor the latter given the transition point at the terminal ileum where there is some stranding suggesting terminal ileitis on prior CT. 2. Large right renal stone.. Abdomen X-Ray 01/25/25 15:29 IMPRESSION: 1. No free intraperitoneal gas or dilated gas-filled loops of bowel to suggest obstruction. 2. 1.2 cm right renal stone. Labs Labs: Laboratory Results - last 24 hr 01/25/25 01/25/25 01/26/25 16:40 20:07 05:07 WBC 6.0 RBC 5.01 Hgb 14.2 Hct 43.2 MCV 86.2 MCH 28.3 MCHC 32.9 RDW 13.9 Plt Count 85 L MPV 11.4 H Immature Gran % (Auto) Not Reportable Neut % (Auto) Not Reportable Lymph % (Auto) Not Reportable [place] % (Auto) Not Reportable Eos % (Auto) Not Reportable Baso % (Auto) Not Reportable Lymph # (Auto) Not Reportable [place] # (Auto) Not Reportable Eos # (Auto) Not Reportable Baso # (Auto) Not Reportable Abs Immat Gran (auto) Not Reportable Absolute Neuts (auto) Not Reportable Absolute Nucleated RBC Not Reportable Total Counted 100 Neutrophils % (Manual) 61 Band Neutrophils % 1 Lymphocytes % (Manual) 25.0 Monocytes % (Manual) 10 H Eosinophils % (Manual) 3 Nucleated RBC % Not Reportable Abs Neuts (Manual) 3.72 Abs Lymphs (Manual) 1.50 Abs Monocytes (Manual) 0.60 Absolute Eos (Manual) 0.18 Smudge Cells Present Platelet Estimate Decreased % Immature Plt Fraction 7.2 Anisocytosis 1+ Schistocytes None seen Sodium 139 Potassium 3.8 Chloride 109 H Carbon Dioxide 23 Anion Gap 7 BUN 14 Creatinine 0.99 Estim Creat Clear Calc 65 Estimated GFR > 60 Glucose 203 H POC Capillary Glucose 146 H 171 H Calcium 8.5 Total Bilirubin 0.5 AST 33 ALT 20 Alkaline Phosphatase 65 Total Protein 6.1 L Albumin 3.4 L 01/26/25 01/26/25 07:42 11:53 WBC RBC Hgb Hct MCV MCH MCHC RDW Plt Count MPV Immature Gran % (Auto) Neut % (Auto) Lymph % (Auto) [place] % (Auto) Eos % (Auto) Baso % (Auto) Lymph # (Auto) [place] # (Auto) Eos # (Auto) Baso # (Auto) Abs Immat Gran (auto) Absolute Neuts (auto) Absolute Nucleated RBC Total Counted Neutrophils % (Manual) Band Neutrophils % Lymphocytes % (Manual) Monocytes % (Manual) Eosinophils % (Manual) Nucleated RBC % Abs Neuts (Manual) Abs Lymphs (Manual) Abs Monocytes (Manual) Absolute Eos (Manual) Smudge Cells Platelet Estimate % Immature Plt Fraction Anisocytosis Schistocytes Sodium Potassium Chloride Carbon Dioxide Anion Gap BUN Creatinine Estim Creat Clear Calc Estimated GFR Glucose POC Capillary Glucose 178 H 194 H Calcium Total Bilirubin AST ALT Alkaline Phosphatase Total Protein Albumin
== END 2025-01-26 13:15 | disposition home or self-care (01) | DRG 375 ==
LOC: ANHED 12:02 → ANH3MEDSUR 16:03
PROVIDERS: Student in an Organized Health Care Education/Training Program; Surgery; Admitting Provider General Practice; Emergency Provider Physician Assistant; PCP Internal Medicine; Visit Provider Student in an Organized Health Care Education/Training Program
PROC: 0DTF4ZZ Resection of Right Large Intestine, Percutaneous Endoscopic Approach (ICD-10-PCS; principal; 2025-01-23 15:00)
DX: C18.1 Malignant neoplasm of appendix (principal); K56.600 Partial intestinal obstruction, unspecified as to cause; D64.9 Anemia, unspecified; E11.40 Type 2 diabetes mellitus with diabetic neuropathy, unspecified; E78.2 Mixed hyperlipidemia; E66.9 Obesity, unspecified; G40.909 Epilepsy, unspecified, not intractable, without status epilepticus; I10 Essential (primary) hypertension; J98.4 Other disorders of lung; R16.1 Splenomegaly, not elsewhere classified; Z79.4 Long term (current) use of insulin; Z96.653 Presence of artificial knee joint, bilateral; Z90.49 Acquired absence of other specified parts of digestive tract; Z86.0100 Personal history of colon polyps, unspecified
CPT/HCPCS: 36415; 71046; 71275; 74019; 74174; 74250; 80048; 80053; 81001; 82378; 82948; 83605; 83690; 84484; 85025; 85027; 85055; 85610; 85730; 86304; 86850; 86900; 86901; 87040; 88305; 88342; 93005; 96361; 96365; 96368; 96375; 96376; 99285; A9270; G0378; J0696; J1650; J1815; J1836; J1953; J2003; J2004; J2270; J2405; J2470; J2704; J3010; J7030; J7040; J7120; Q9967

== ENCOUNTER 2025-02-04 01:34 | Day surgery (SDC) | payer MEDICARE, SELFPAY ==
--- OUTSIDE RECORDS SUMMARY | 2013-01-16 11:00 | XMS_ITS | Continuity of Care Document ---
Author Organization [facility] Address [address] [place] [id number] Phone Care Team Providers Care Medical Esthetician Name Role Phone Kirit Tee BELTRAN Unavailable Unavailable Procedures Procedure Date PT RE-EVALUATION THERAPEUTIC EXERCISES MANUAL THERAPY FUNC ACTIVITY 15 MIN THERAPEUTIC EXERCISES MANUAL THERAPY FUNC ACTIVITY 15 MIN HOT/COLD PACK THERAPEUTIC EXERCISES MANUAL THERAPY FUNC ACTIVITY 15 MIN HOT/COLD PACK THERAPEUTIC EXERCISES FUNC ACTIVITY 15 MIN HOT/COLD PACK THERAPEUTIC EXERCISES MANUAL THERAPY FUNC ACTIVITY 15 MIN HOT/COLD PACK THERAPEUTIC EXERCISES MANUAL THERAPY FUNC ACTIVITY 15 MIN HOT/COLD PACK THERAPEUTIC EXERCISES MANUAL THERAPY FUNC ACTIVITY 15 MIN HOT/COLD PACK THERAPEUTIC EXERCISES MANUAL THERAPY FUNC ACTIVITY 15 MIN HOT/COLD PACK PT RE-EVALUATION THERAPEUTIC EXERCISES MANUAL THERAPY FUNC ACTIVITY 15 MIN THERAPEUTIC EXERCISES MANUAL THERAPY FUNC ACTIVITY 15 MIN HOT/COLD PACK THERAPEUTIC EXERCISES MANUAL THERAPY FUNC ACTIVITY 15 MIN HOT/COLD PACK THERAPEUTIC EXERCISES MANUAL THERAPY FUNC ACTIVITY 15 MIN HOT/COLD PACK THERAPEUTIC EXERCISES FUNC ACTIVITY 15 MIN HOT/COLD PACK THERAPEUTIC EXERCISES MANUAL THERAPY HOT/COLD PACK PT EVALUATION THERAPEUTIC EXERCISES MANUAL THERAPY Advance Directives Directive Yes / No Effective Date File Name No Information Encounters Encounter Description Practice Location Reason(s) For Visit Diagnoses Date Provider Providers Copied on Encounter [address], [id number], tel:[phone] [place] No Information Kirit Luong [address] [facility], [facility] [address], [place], [place], [facility], [place]. tel:[phone] Referring Provider: Tamara Hoff, [address], [place], [address]. tel:[phone] [address], [place], [id number], tel:[phone] Marcel[place] No Information Kirit Luong [address] [facility], [address], [place], [place], [facility], [place]. tel:[phone] Referring Provider: Tamara Hoff, [address], [place], [address]. tel:[phone] [address], [place], [id number], tel:[phone] Marcelino No Information Kirit Luong [address] [facility], [address], [place], [facility], . tel:[phone] Referring Provider: Tamara Hoff, [address], [place], [address]. tel:[phone] [address], [place], [place], [address], [place] tel:[phone] [place] No Information Kirit Tee. [address] [facility], [address], [place], [address], [place]. tel:[phone] Referring Provider: Tamara Hoff, [address], [place], [address]. tel:[phone] [address], [place], [place], [id number], [place] tel:[phone] [place] No Information Kirit Tee. [address] [facility], [address], [place], [address], [place]. tel:[phone] Referring Provider: Tamara Hoff, [address], [place], [address]. tel:[phone] [address], [place], [place], [address], [place] tel:[phone] [place] No Information Kirit Tee. [address] [facility], [address], [place], [address], [place]. tel:[phone] Referring Provider: Tamara Hoff, [address], [place], [address]. tel:[phone] [address], [place], [place], [id number], [place] tel:[phone] Marcelino No Information Kirit Tee. [address] [facility], [address], [place], [address], [place]. tel:[phone] Referring Provider: Tamara Hoff, [address], [place], [address]. tel:[phone], [place], [place], [id number], tel:[phone] Marcelino No Information Kirit Tee. [address] [facility], [address], [place], [facility], [place]. tel:[phone] Referring Provider: Tamara Hoff, [address], [place], [address]. tel:[phone], [place], [place], [address], [place] tel:[phone] Marcelino No Information Kirit Tee. [address] [facility], [address], [place], [facility], [place]. tel:[phone] Referring Provider: Tamara Hoff, [address], [place], [address]. tel:[phone] [address], [place], [place], [id number], [place] tel:[phone] Marcelino No Information Kirit Tee. [address] [facility], [address], [place], [facility], [place]. tel:[phone] Referring Provider: Tamara Hoff, [address], [place], [address]. tel:[phone], [place], [place], [address], [place] tel:[phone] Marcelino No Information Kirit Tee. [address] [facility], [address], [place], [facility], [place]. tel:[phone] Referring Provider: Tamara Hoff, [address], [place], [address]. tel:[phone] [address], [place], [place], [address], [place] tel:[phone] Marcel[place] No Information Kirit Tee. [address] [facility], [address], [place], [address], [place]. tel:[phone] Referring Provider: Tamara Hoff, [address], [place], [address]. tel:[phone], [place], [place], [address], tel:[phone] [place] No Information Kirit Tee. [address] [facility], [address], [place], [address], [place]. tel:[phone] Referring Provider: Tamara Hoff, [address] [facility] [address], [place], [address]. tel:[phone], [place], [place], [address], tel:[phone] Marcelino No Information Kirit Tee. [address] [facility], [address], [place], [address], [place]. tel:[phone] Referring Provider: Tamara Hoff, [address] [facility] [address], [place], [address]. tel:[phone], [place], [place], [address], tel:[phone] [place] Pain in joint involving lower leg Kirit Tee. [address] [facility], [address], [place], [address], [place]. tel:[phone] Referring Provider: Tamara Hoff, [address], [place], [address]. tel:[phone] Family History Family Member Type Diagnosis Age At Onset No Information Payers Payer name Insurance type Covered green party ID Authorizcharlette estrella(s) [facility] Ethan GOMES [id number] C Y 2013 Social History Type Description Quantity Date Captured Comments Sex Male Smoking Status No Information Chief Complaint And Reason For Visit No Information Reason For Referral Reason For Referral No Information History Of Present Illness Encounter Date Complaint History Of Prese nt Illness No Information Functional Status Date Functional Assessmen t No Information Instructions Date Instruction Additional Infor mation No Information Assessments Type Assessment Date No Information Patient Care Teams Name Effective Dates (start - stop) Status Members No Information
--- OUTSIDE RECORDS SUMMARY | 2018-12-18 10:16 | XMS_ITS | Continuity of Care Document ---
Author Organization [facility] Address [address] [place] [address] Phone Care Team Providers [facility] Executive Director Name Role Phone Paul Okeefe MD Unavailable [...] Diagnoses Date Provider Providers Copied on Encounter [facility], [address] [place] [address], [place], [address], [phone] [facility] No Information 9 Sary Miller. [address] [place] [address], [id number] . tel: [phone] OFFICE/OUTPA TIENT VISIT [facility], [address] [place] [address], [place], [address], [place] tel:[phone] [facility] Lumbar disc disease with radiculopathyCo ntusion of right hip, initial encounterContus ion of right thigh, initial encounter 9 Gordo Cobrett. [address] [facility] [address], [place], [place], [id number] . tel: [phone] [facility], [address] [place] [address], [address], [place] [phone] [facility] [place] Follow Up of R TKA (chief complaint) Status post right knee replacement 7 Saqib Singer. [address], [place], [place], [id number] . tel: [phone] [facility], [address] [place] [address], [address], [place] [phone] [facility] [place] Follow Up of R TKA (chief complaint) Status post right knee replacement 7 Saqib Singer. [address], [place], [place], [id number] . tel: [phone] [facility], [address] [place] [address], [address], [place] [phone] [facility] [place] Post-traumatic osteoarthritis of right knee 7 Saqib Singer. [address], [place], [place], [id number] . tel: [phone] OFFICE/OUTPA TIENT VISIT EST [facility], [address], [place], [address], [place] tel:[phone] [facility] [place] Primary osteoarthritis of right knee Mar-2 8 7 Saqib Singer. [address], [place], [place], [id number] . tel: [phone] OFFICE/OUTPA TIENT VISIT [facility], [address] [place] [address], [place], [address], [place] tel:[phone] [facility] [place] Primary osteoarthritis of right knee Feb- 3 7 Saqib Singer. [address], [place], [place], [id number] . tel: [phone] Referring Provider: Eric Allen, [address], [place], [address] . tel:[phone] [facility], [address] [place] [address], [place], [address], [place] tel:[phone] [facility] [place] Carpal tunnel syndrome Mar-0 4 lAex Cruz. [address], [place], [place], [id number] , [place]. tel: [phone] [facility], [address] [place] [address], [place], [address], [place] tel:[phone] [facility] [place] 1st post op R CTR (chief complaint) Carpal tunnel syndrome Jan- 4 Alex Cruz. [address], [place], [place], [id number] , [place]. tel: [phone] [facility], [address] [place] [address], [place], [address], [place] tel:[phone] [facility] [place] Carpal tunnel syndrome Dec-0 4 Alex Cruz. [address], [place], [place], [id number] , [place]. tel: [phone] OFFICE/OUTPA TIENT VISIT [facility], [address], [place], [address], [place] [phone] [facility] [place] Carpal tunnel syndrome 4 Alex Cruz. [address], [place], [place], [id number] , [place]. tel: [phone] Family History Family Member Type Diagnosis Age At Onset Father Problem (finding) 82 Father Problem (finding) Renal disease (Cause Of ) 82 Immunizations Vaccine Date Status Comments Pneumo (2 yrs or older)(PPV) administered Source: Other Provider Pneumo (2 yrs or older)(PPV) administered Source: Other Provider Payers Payer name Insurance type Covered republican ID Authoriza tion(s) No Information Social History [...] Bod y mass index (BMI) 32.0-32.9, adult take medications as directed Rel ated to Status post right knee replacement increase activity as instructed Related to Status post right knee replacement Assessments Type Assessment Date No Information Patient Care Teams Name Effective Dates (start - stop) Status Members No Information
--- OUTSIDE RECORDS SUMMARY | 2024-01-21 10:42 | XMS_ITS | Continuity of Care Document ---
Author Organization [employer] Address [address] [place] [address] Phone Care Team Providers Care Tip Finisher Name Role Phone Eric Allen DO Unavailable Unavailable Allergies, Adverse Reactions, Alerts Substance Reaction Status Criticality codeine Other Active No Information Medications Medication Instructions Dosage Effective Dates (start - stop) Status Comments FREESTYLE CARLEY 2 SENSOR APPLY 1 SENSOR TO THE BACK OF THE ARM EVERY 14 DAYS DIRECTED - Active METFORMIN HCL 1,000 MG TABLET TAKE 1 TABLET BY MOUTH TWICE A DAY - Active ATORVASTATIN 40 MG TABLET TAKE 1 TABLET BY MOUTH EVERY DAY - Active JARDIANCE 25 MG TABLET TAKE 1 TABLET BY MOUTH EVERY DAY IN THE MORNING - Active oxycodone-acetaminop hen 7.5 mg-325 mg tablet take 1 tablet by oral route every 4-6 hours as needed for pain - Active ferrous sulfate 325 mg (65 mg iron) tablet take 1 tablet by oral route once daily - Active RAMIPRIL 10MG CAPSULES TAKE 1 CAPSULE BY MOUTH EVERY DAY - Active pantoprazole 40 mg tablet,delayed release TAKE 1 TABLET BY MOUTH EVERY DAY - Active insulin aspart (U-100) 100 unit/mL (3 mL) subcutaneous pen Inject 18 units by subcutaneous route before breakfast, lunch, and dinner plus correction. Max 23 units per meal, max 69 units per day. - Active BG 151-175 +1 units, B-200 +2 units, B-225 +3 units, BG 226-250 + 4 units, BG >250 + 5 units Lantus Solostar U-100 Insulin 100 unit/mL (3 mL) subcutaneous pen Inject 55 units by subcutaneous route once daily in the AM - Active Vascepa 1 gram capsule take 2 capsule by oral route 2 times every day with food swallowing whole. Do not chew, open, dissolve and/or crush. 2 G - Active Takes one capsule twice daily b/c of stomach upset BD Ultra-Fine Original Pen Needle 29 gauge x 1/2 Use 4 daily as directed for insulin administration - Active Updated directions. Please place on file for next refill ONE TOUCH VERIO TEST ST(NEW)100'S TEST BLOOD SUGARS 2 TO 3 TIMES DAILY DIRECTED - Active ONE TOUCH DELICA LANCETS 33G 100S USE DIRECTED TO TEST BLOOD SUGAR 2-3 TIMES A DAY - Active OneTouch Verio Flex Start kit Use as directed - Active nortriptyline 50 mg capsule take 1 capsule by oral route 2 times every day 50 MG - Active aspirin 81 mg tablet,delayed release take 1 tablet by oral route every day 81 MG - Active Procedures Procedure Date OFFICE [id number] Admin influenza virus vac FLU VACC PRSV FREE INC ANTIG CBC, INC PLATELETS AND DIFFERENTIAL COMPREHEN METABOLIC PANEL CMP FERRITIN LEVEL HEMOGLOBIN A1C HGA1C, GLYCO IRON (FE), TOTAL TIBC, & % SATURATION PHOSPHORUS (PO4), INORGANIC (S) 022 PARATHYROID HORMONE (PTH) VITAMIN D, 25-HYDROXY ROUTINE VENIPUNCTURE OFFICE [id number] CBC, INC PLATELETS AND DIFFERENTIAL HEMOGLOBIN A1C HGA1C, GLYCO IRON (FE), TOTAL TIBC, & % SATURATION RETICYTE/HGB CONCENTRATE ROUTINE VENIPUNCTURE CBC, INC PLATELETS AND DIFFERENTIAL FERRITIN LEVEL IRON (FE), TOTAL Fecal Occult Blood - Mdcr OL ROUTINE VENIPUNCTURE CBC, INC PLATELETS AND DIFFERENTIAL ROUTINE VENIPUNCTURE Fecal Occult Blood - Mdcr OL OFFICE [id number] CBC, INC PLATELETS AND DIFFERENTIAL COMPREHEN METABOLIC PANEL CMP HEMOGLOBIN A1C HGA1C, GLYCO LIPID PANEL MICROALBUMIN, QN (URINE) CREATININE, (U-R) THYROID STIMULATION HORMONE(TSH) 2021 ROUTINE VENIPUNCTURE LDL-CHOLESTEROL, DIRECT FERRITIN LEVEL IRON (FE), TOTAL TIBC, & % SATURATION HEMOGLOBIN A1C HGA1C, GLYCO ROUTINE VENIPUNCTURE Admin influenza virus vac FLU VACC PRSV FREE INC ANTIG HEMOGLOBIN A1C HGA1C, GLYCO RENAL FUNCTION PANEL ROUTINE VENIPUNCTURE OFFICE [id number] CBC, INC PLATELETS AND DIFFERENTIAL COMPREHEN METABOLIC PANEL CMP FOLIC ACID (S) (FOLATE) HEMOGLOBIN A1C HGA1C, GLYCO MAGNESIUM (MG), SERUM MICROALBUMIN, QN (URINE) CREATININE, (U-R) PSA, TOTAL, SCREENING MEDICARE ONLY VITAMIN B12 (SERUM) ROUTINE VENIPUNCTURE Removal Impacted Cerumen Irrigation/Lava ge, Unilateral URINALYSIS, DIPSTICK (UA) - Office Lab A OFFICE [id number]-HOW-[id number] HEMOGLOBIN A1C HGA1C, GLYCO LIPID PANEL ROUTINE VENIPUNCTURE OFFICE DGOER-IOX-[id number] COMPREHEN METABOLIC PANEL CMP 1 HEMOGLOBIN A1C HGA1C, GLYCO LIPID PANEL MICROALBUMIN, QN (URINE) CREATININE, (U-R) ROUTINE VENIPUNCTURE BASIC METABOLIC PANEL(BMP) ROUTINE VENIPUNCTURE OFFICE [id number] Admin influenza virus vac FLU VACC PRSV FREE INC ANTIG OFFICE [id number] BASIC METABOLIC PANEL(BMP) HEMOGLOBIN A1C HGA1C, GLYCO ROUTINE VENIPUNCTURE OFFICE HJURW-[id number]-[id number] CBC, INC PLATELETS AND DIFFERENTIAL COMPREHEN METABOLIC PANEL [facility] 0 HEMOGLOBIN A1C HGA1C, GLYCO LIPID PANEL MICROALBUMIN, QN (URINE) CREATININE, (U-R) PSA, TOTAL, SCREENING MEDICARE ONLY THYROID STIMULATION HORMONE(TSH) 2019 ROUTINE VENIPUNCTURE LDL-CHOLESTEROL, DIRECT TISSUE EXAM BY PATHOLOGIST COLONOSCOPY, REMOVAL SNARE TECH 020 CBC, INC PLATELETS AND DIFFERENTIAL COMPREHEN METABOLIC PANEL [facility] 9 ROUTINE VENIPUNCTURE HEMOGLOBIN A1C HGA1C, GLYCO MICROALBUMIN, QN (URINE) CREATININE, (U-R) OFFICE [id number] CBC, INC PLATELETS AND DIFFERENTIAL ROUTINE VENIPUNCTURE DSCHRG MED/CURRENT MED MERGE Admin influenza virus vac FLU VACC PRSV FREE INC ANTIG BASIC METABOLIC PANEL(BMP) CBC, INC PLATELETS AND DIFFERENTIAL ROUTINE VENIPUNCTURE OFFICE [id number]-[id number] DSCHRG MED/CURRENT MED MERGE URINALYSIS, DIPSTICK (UA) - Office Lab J OFFICE [id number] CBC, INC PLATELETS AND DIFFERENTIAL ROUTINE VENIPUNCTURE OFFICE [id number]-[id number] Advance Directives Directive Yes / No Effective Date File Name No Information Encounters Encounter Description Practice Location Reason(s) For Visit Diagnoses Date Provider Providers Copied on Encounter [facility], [address], [place], [place], [address] , tel: [phone] [facility] No Information 4 Alejandro Reyes. [address] [place] [address], [id number], . tel:[phone] [facility], [address], [place], [place], [address] , tel: [phone] [facility] No Information 4 Alejandro Reyes. [address] [place] [address], [place], [place], [address], [place]. tel:[phone] [facility], [address], [place], [place], [address] , tel: [phone] [facility] No Information 3 Alejandro Reyes. [address] [place] [address], [place], [place], [address], [place]. tel:[phone] [facility], [address], [place], [place], [address] , tel: [phone] [facility] No Information 3 Alejandro Reyes. [address] [place] [address], [place], [place], [address], [place]. tel:[phone] [facility], [address], [place], [place], [address] , tel: [phone] [facility] No Information 3 Alejandro Reyes. [address], [address], [place], [place], [address], [place]. [phone] [facility], [address], [place], [place], [address] , tel: [phone] [place] No Information 2 Alejandro Reyes. [address], [address], [place], [place], [address], [place]. [phone] [facility], [address], [place], [place], [address] , [place] tel: [phone] [place] No Information 2 Alejandro Reyes. [address], [address], [place], [place], [address], [place]. tel:[phone] OFFICE MCIEU-DFH-MW TAILED [facility], [address], [place], [place], [address] , tel: [phone] [facility] Chronic conditions (chief complaint) Body mass index [BMI] 31.0-31.9, adultType 2 diabetes mellitus with stage 3 chronic kidney disease, with long-term current use of insulin, unspecified whether stage 3a or 3b CKDHypertensi ve kidney disease with stage 3b chronic kidney diseaseLong term (current) use of insulinChroni c kidney disease, stage 3bNonintracta ble epilepsy without status epilepticus, unspecified epilepsy typeHypertrig lyceridemiaId iopathic neuropathyHis tory of transient ischemic attack (TIA)Anemia, unspecified typeSciatic pain, unspecified lateralityTre morHistory of cardiomyopath ySenile purpuraObesit y (BMI 30.0-34.9)Deg enerative disc disease, lumbarScolios is of thoracolumbar spine, unspecified scoliosis typeEncounter for screening for malignant neoplasm of colon 2 Alejandro Reyes. [address], [address], [place], [place], [address], [place]. tel:[phone] Referring Provider: Eric Allen, [address] [place] [address], [place], [address] . tel:[phone] [facility], [address], [place], [place], [address] , [place] tel: [phone] [facility] No Information Feb-0 2 Alejandro Reyes. [address] [place] [address], [address], [place], [place], [address], [place]. tel:[phone] [facility], [address], [place], [place], [address] , [place] tel: [phone] [facility] Sciatic pain, unspecified laterality Sep-1 2 Alejandro Reyes. [address] [place] [address], [facility] [address], [place], [place], [address], [place]. tel:[phone] OFFICE EUPZP-XIW-RU PANDED [facility], [address], [place], [place], [address] , tel: [phone] [facility] Patient encounter (chief complaint) Nasal congestionSci atic pain, unspecified laterality Sep-0 2 Larissa Arnett. [address] [place] [address], [place] [address], [place], [address], [place]. tel:[phone] Referring Provider: Eric Allen, [address] [place] [address], [place], [address] . tel:[phone] [facility], [address], [place], [place], [address] , [place] tel: [phone] [facility] No Information Dec-0 2 Alejandro Reyes. [address] [place] [address], [place] [address], [place], [place], [address], [place]. tel:[phone] [facility], [address], [place], [place], [address] , [place] tel:[phone] [facility] Anemia, unspecified type Nov-0 2 Alejandro Reyes. [address] [place] [address], [place] [address], [place], [place], [address], [place]. tel:[phone] Referring Provider: Eric Allen, [address] [place] [address], [place], [address] . tel:[phone] [facility], [address], [place], [place], [address] , tel:[phone] [facility] No Information 2 Alejandro Reyes. [address] [place] [address], [place] [address], [place], [place], [address], . tel:[phone] [facility], [address], [place], [place], [address] , tel:[phone] [place] Anemia, unspecified type 2 Bryan Zaldivar. [address] [place] [address], [address], [place], [place], [address], [place]. tel:[phone] Referring Provider: Zen Adams, [address] [place] [address], [place], [address] . tel:[phone] [facility], [address], [place], [place], [address] , tel:[phone] [place] Anemia, unspecified type 2 Alejandro Reyes. [address] [place] [address], [address] [facility][note 2], [place], [place], [address], . tel:[phone] Referring Provider: Eric Allen, [address] [place] [address], [place], [address] . tel:[phone] [facility], [address], [place], [place], [address] , [phone] [facility] Colon cancer screening Aug-2 2 Alejandro Reyes. [address] [place] [address], [place] [address], [place], [place], [address], . tel:[phone] Referring Provider: Eric Allen, [address] [place] [address], [place], [address] . tel:[phone] OFFICE ZFQQI-VCK-AP [facility], [address], [place], [place], [address] , tel:[phone] [place] .CC (chief complaint) Type 2 diabetes mellitus with stage 3 chronic kidney disease, with long-term current use of insulin, unspecified whether stage 3a or 3b CKDLong term (current) use of insulinIdiopa thic neuropathyTre morChronic kidney disease, stage 3bHypertrigly ceridemiaNoni ntractable epilepsy without status epilepticus, unspecified epilepsy typeHistory of transient ischemic attack (TIA)History of cardiomyopath yHypertensive kidney disease with stage 3b chronic kidney diseaseSenile purpuraObesit y (BMI 30.0-34.9)Ane lyla, unspecified type 2 Alejandro Reyes. [address] [place] [address], [place] [address], [place], [place], [address], . tel:[phone] Referring Provider: Eric Allen, [address] [place] [address], [place], [address] . tel:[phone] [facility], [address], [place], [place], [address] , [place] tel:[phone] [facility] (chief complaint) Type 2 diabetes mellitus with diabetic polyneuropath y, with long-term current use of insulin 2 Pricila Avila. [address] [place] [address], [place], [place], [address], [place]. tel:[phone] [facility], [address], [place], [place], [address] , [place] [phone] [place] Type 2 diabetes mellitus with diabetic polyneuropath y, with long-term current use of insulin 2 Alejandro Reyes. [address] [place] [address], [place], [place], [address], . tel:[phone] Referring Provider: Eric Allen, [address] [place] [address], [place], [address] . tel:[phone] [facility], [address], [place], [place], [address] , [place] tel:[phone] [facility] No Information 1 Alejandro Reyes. [address] [place] [address], [place], [place], [address], [place]. tel:[phone] [facility], [address], [place], [place], [address] , [place] tel:[phone] [facility] (chief complaint) Type 2 diabetes mellitus with diabetic polyneuropath y, with long-term current use of insulin 1 Pricila Avila. [address] [facility] [address], [place], [place], [address], . tel:[phone] OFFICE OIZNY-IIA-CG [facility], [address], [place], [place], [address] , [place] [phone] [facility] chronic condition (chief complaint) Body mass index [BMI] 31.0-31.9, adultType 2 diabetes mellitus with diabetic polyneuropath y, with long-term current use of insulinHypert riglyceridemi aNonintractab le epilepsy without status epilepticus, unspecified epilepsy typeSciatica, unspecified lateralityHis tory of transient ischemic attack (TIA)History of cardiomyopath yObesity (BMI 30.0-34.9)Hyp ertensive kidney disease with stage 3b chronic kidney diseaseChroni c kidney disease, stage 3bSenile purpuraGriefI mmunization counseling 1 Alejandro Reyes. [address] [place] [address], [facility] [address], [place], [place], [address], . tel:[phone] Referring Provider: Eric Allen, [address] [place] [address], [place], [address] . tel:[phone] [facility], [address], [place], [place], [address] , [place] tel:[phone] Administratio n No Information 1 Alejandro Reyes. [address] [place] [address], [place] [address], [place], [place], [address], [place]. tel:[phone] [facility]ICE [facility], [address], [place], [place], [address] , [place] [phone] [place] ear clogged , legs feel heavy (chief complaint)b ilateral ear (chief complaint) Body mass index (BMI) 32.0-32.9, adultType 2 diabetes mellitus with diabetic polyneuropath y, with long-term current use of insulinEncoun ter for screening for malignant neoplasm of prostateImpac cierra cerumen, bilateral Aug-0 2-202 1 Negar Parker. [address] [facility], [place], [place], [address], [place]. tel:[phone] Referring Provider: Eric Allen, [address] [place] [address], [place], [address] . tel:[phone] [facility], [address], [place], [place], [address] , [place] tel: [phone] [facility] Nonintractabl e epilepsy without status epilepticus, unspecified epilepsy type 1 Alejandro Reyes. [address] [place] [address], [facility] [address], [place], [place], [address], [place]. tel:[phone] [facility], [address], [place], [place], [address] , [place] tel: [phone] [place] Type 2 diabetes mellitus with diabetic polyneuropath y, with long-term current use of insulin 1 Alejandro Reyes. [address] [place] [address], [facility] [address], [place], [place], [address], [place]. tel:[phone] Referring Provider: Eric Allen, [address] [place] [address], [place], [address] . tel:[phone] [facility], [address], [place], [place], [address] , [place] tel: [phone] [facility] (chief complaint) Type 2 diabetes mellitus with diabetic polyneuropath y, with long-term current use of insulinEpilep sy, unspecified, not intractable, without status epilepticusHi story of transient ischemic attack (TIA)Sciatica , unspecified lateralityObe sity (BMI 30.0-34.9)Hyp ertensive kidney disease with stage 3a chronic kidney diseaseHypert riglyceridemi aAcute gastritis with hemorrhage, unspecified gastritis type 1 Pricila Avila. [address], [facility] [address], [place], [place], [address], [place]. tel:[phone] OFFICE PBFHN-XHM-HY TAILED [facility], [address], [place], [place], [address] , [place] tel:[phone] [place] Chronic conditions (chief complaint) Type 2 diabetes mellitus with diabetic polyneuropath y, with long-term current use of insulinLong term (current) use of insulinHypert ensive kidney disease with stage 3a chronic kidney diseaseChroni c kidney disease, stage 3aHypertrigly ceridemiaHist ory of transient ischemic attack (TIA)History of cardiomyopath yEpilepsy, unspecified, not intractable, without status epilepticusOb esity (BMI 30.0-34.9)Sci atica, unspecified laterality 1 Alejandro Reyes. [address], [facility] [address], [place], [place], [address], . tel:[phone] Referring Provider: Eric Allen, [address] [place] [address], [place], [address] . tel:[phone] OFFICE MGTJL-STF-AJ [facility], [address], [place], [place], [address] , tel:[phone] [place] Lesion on bottom of right foot (chief complaint) Body mass index (BMI) 32.0-32.9, adultType 2 diabetes mellitus with diabetic polyneuropath y, with long-term current use of insulinObesit y (BMI 30.0-34.9)Kamryn lulitis of lower extremity, unspecified laterality 0 Larissa Arnett. [address] [place] [address], [place] [address], [place], [place], [address], . tel:[phone] Referring Provider: Eric Allen, [address] [place] [address], [place], [address] . tel:[phone] OFFICE CGCBH-ZNP-UV [facility], [address], [place], [place], [address] , tel:[phone] [facility] chronic conditions (chief complaint) Type 2 diabetes mellitus with diabetic polyneuropath y, with long-term current use of insulinLong term (current) use of insulinHypert riglyceridemi aHistory of transient ischemic attack (TIA)Epilepsy , unspecified, not intractable, without status epilepticusOb esity (BMI 30.0-34.9)Nee d for vaccinationHy pertensive kidney disease with stage 3a chronic kidney diseaseChroni c kidney disease, stage 3aHistory of cardiomyopath y 0 Mar Johnson. [address] [place] [address], [place] [address], [place], [place], [address]. tel:[phone] Referring Provider: Eric Allen, [address] [place] [address], [place], [address] . tel:[phone] [facility], [address], [place], [place], [address] , tel:[phone] [place] Type 2 diabetes mellitus with polyneuropath y 0 Alejandro Reyes. [address] [place] [address], [place], [place], [address], . tel:[phone] Referring Provider: Eric Allen, [address] [place] [address], [place], [address] . tel:[phone] [employer], [address], [place], [place], [address] , tel:[phone] [place] No Information 0 Alejandro Reyes. [address] [place] [address], [place], [place], [address], . tel:[phone] [employer] [facility], [address], [place], [place], [address] , tel:[phone] [place] No Information 0 Alejandro Reyes. [address] [place] [address], [place], [place], [address], . tel:[phone] OFFICE VIMMI-CAN-JZ TAILED [facility], [address], [place], [place], [address] , tel:[phone] [place] Chronic condition (chief complaint) Type 2 diabetes mellitus with polyneuropath yBenign hypertensionO ther hyperlipidemi aEpilepsy, unspecified, not intractable, without status epilepticusHx of TIA (transient ischemic attack) and strokeSciatic a, unspecified lateralityObe sity (BMI 30-39.9)Body mass index (BMI) 31.0-31.9, [facility] r for screening for malignant neoplasm of prostate 0 Alejandro Reyes. [address] [place] [address], [address], [place], [place], [address], [place]. tel:[phone] Referring Provider: Eric Allen, [address] [place] [address] [address], [place], [address] . tel:[phone] [facility], [address], [place], [place], [address] , [place] tel: [phone] [place] Encounter for diabetic foot exam 0 Alejandro Reyes. [address] [place] [address], [address], [place], [place], [address], [place]. tel:[phone] [facility], [address], [place], [place], [address] , [place] tel: [phone] [place] Sciatica, unspecified laterality 0 Alejandro Reyes. [address] [place] [address], [address], [place], [place], [address], [place]. tel:[phone] [facility], [address], [place], [place], [address] , [place] tel: [phone] [facility] Epilepsy, unspecified, not intractable, without status epilepticus 0 Alejandro Reyes. [address] [place] [address], [address], [place], [place], [address], [place]. tel:[phone] [facility], [address], [place], [place], [address] , [place] tel: [phone] [facility] No Information 0 Caleb Alvarado. [address] [place], [address], [place]. tel:[phone] Referring Provider: Eric Allen, [address] [place] [address] [address], [place], [address] . tel:[phone] [facility], [address], [place], [place], [address] , [place] tel: [phone] [facility] No Information 0 Joel Viera. [address] [facility], [address], [address], [place]. tel:[phone] Referring Provider: Eric Allen, [address] [place] [address], [place], [address] . tel:[phone] OFFICE ILNOF-KBI-TB [facility], [address], [place], [place], [address] , [place] tel:[phone] [facility] chronic condition (chief complaint) Type 2 diabetes mellitus with polyneuropath yBody mass index (BMI) 32.0-32.9, adultBenign hypertensionO ther hyperlipidemi aEpilepsy, unspecified, not intractable, without status epilepticusOb esity (BMI 30-39.9)Hx of TIA (transient ischemic attack) and strokeAcute gastritis with hemorrhage, unspecified gastritis typeIron deficiency anemia, unspecified iron deficiency anemia typeSciatica, unspecified laterality 9 Alejandro Reyes. [address] [place] [address], [address], [place], [place], [address], [place]. tel:[phone] Referring Provider: Eric Allen, [address] [place] [address], [place], [address] . tel:[phone] [facility], [address], [place], [place], [address] , [place] tel:[phone] [place] Iron deficiency anemia, unspecified iron deficiency anemia typeAbdominal pain, unspecified abdominal location Sep-2 9 Mar Johnson. [address] [place] [address], [place] [address], [place], [place], [address]. tel:[phone] [facility], [address], [place], [place], [address] , [place] tel:[phone] [place] Anemia, unspecified Sep-2 - 9 Mar Johnson. [address] [place] [address], [place] [address], [place], [place], [address]. tel:[phone] Referring Provider: Eric Allen, [address] [place] [address], [place], [address] . tel:[phone] [facility], [address], [place], [place], [address] , tel: [phone] [place] Anemia, unspecified type Mar Johnson. [address] [place] [address], [facility] [address], [place], [place], [address]. tel:[phone] OFFICE TCKLR-FLB-UG [facility], [address], [place], [place], [address] , [place] tel: [phone] [facility] follow up (chief complaint) Body mass index (BMI) 31.0-31.9, adultType 2 diabetes mellitus with polyneuropath yIron deficiency anemia, unspecified iron deficiency anemia typeHistory of abdominal painEncounter for therapeutic drug level monitoring Mar Monacon. [address] [place] [address], [place] [address], [place], [place], [address]. tel:[phone] Referring Provider: Eric Allen, [address] [place] [address], [place], [address] . tel:[phone] [facility], [address], [place], [place], [address] , [place] tel: [phone] [place] No Information Alejandro Reyes. [address] [place] [address], [place] [address], [place], [place], [address], [place]. tel:[phone] Referring Provider: Eric Allen, [address] [place] [address], [place], [address] . tel:[phone] [facility], [address], [place], [place], [address] , [place] tel:[phone] [place] Abdominal pain, unspecified abdominal locationLeuko cytes in urine Alejandro Reyes. [address] [place] [address], [place] [address], [place], [place], [address], [place]. tel:[phone] Referring Provider: Eric Allen, [address] [place] [address], [place], [address] . tel:[phone] OFFICE [facility], [address], [place], [place], [address] , [place] tel: [phone] [place] Stomach pains x 3 days. Vomiting (chief complaint) Body mass index (BMI) 31.0-31.9, adultGenerali zed abdominal painType 2 diabetes mellitus with polyneuropath ySciatica, unspecified laterality 9 Dias Hope. [address] [place] [address], [place] [address], [place], [place], [address], [place]. tel:[phone] Referring Provider: Eric Allen, [address] [place] [address] [address], [place], [address] . tel:[phone] [employer] [facility], [address], [place], [place], [address] , tel: [phone] [place] Right hip painTraumatic hematoma of right thigh, subsequent encounter 9 Alejandro Reyes. [address] [place] [address], [place] [address], [place], [place], [address], [place]. tel:[phone] [employer] [facility], [address], [place], [place], [address] , [place] tel: [phone] [place] Epilepsy, unspecified, not intractable, without status epilepticus Alejandro Reyes. [address] [place] [address], [place] [address], [place], [place], [address], [place]. tel:[phone] [facility], [address], [place], [place], [address] , [place] tel: [phone] [place] Right hip pain 9 Alejandro Reyes. [address] [place] [address], [place] [address], [place], [place], [address], [place]. tel:[phone] OFFICE [facility], [address], [place], [place], [address] , [place] tel: [phone] [place] R leg pain after fall (chief complaint) Body mass index (BMI) 32.0-32.9, adultTraumati c hematoma of right thigh, subsequent encounterStat us post fallThrombocy topeniaEncoun ter for screening colonoscopy 9 Alejandro Lewis [address] [place] [address], [address], [place], [place], [address], . tel:[phone] Referring Provider: Eric Allen, [address] [place] [address], [place], [address] . tel:[phone] [facility], [address], [place], [place], [address] , tel: [phone] [place] No Information 8 Alejandro Reyes. [address] [place] [address], [place] [address], [place], [place], [address], [place]. tel:[phone] [facility], [address], [place], [place], [address] , tel: [phone] [place] Type 2 diabetes mellitus with polyneuropath y 8 Alejandro Reyes. [address] [place] [address], [place] [address], [place], [place], [address], . tel:[phone] Referring Provider: Eric Allen, [address] [place] [address] Suite [facility][note 2], [place], [address] . tel:[phone] [employer] [facility], [address], [place], [place], [address] , tel: [phone] [place] Benign hypertension Sep- 8 Alejandro Reyes. [address] [place] [address], [place] [address], [place], [place], [address], . [phone] Referring Provider: Eric Allen, [address] [place] [address], [place], [address] . tel:[phone] [facility], [address], [place], [place], [address] , tel: [phone] [place] Type 2 diabetes mellitus with polyneuropath yBenign hypertensionO ther hyperlipidemi aEpilepsy, unspecified, not intractable, without status epilepticusOb esity (BMI 30-39.9)Encou nter for immunizationS creening PSA (prostate specific antigen)Jaw pain Sep-0 8 Alejandro Reyes. [address] [place] [address], [place] [address], [place], [place], [address], [place]. tel:[phone] Referring Provider: Eric Allen, [address] [place] [address] [address], [place], [address] . tel:[phone] [facility], [address], [place], [place], [address] , [place] tel: [phone] [place] Epilepsy, unspecified, not intractable, without status epilepticus 8 Alejandro Reyes. [address] [place] [address], [address], [place], [place], [address], [place]. tel:[phone] [facility], [address], [place], [place], [address] , [place] tel: [phone] [place] Diabetic eye examEncounter for examination of eyes and vision without abnormal findings 7 Alejandro Reyes. [address] [place] [address], [place] [address], [place], [place], [address], . tel:[phone] [facility], [address], [place], [place], [address] , [place] tel: [phone] [place] Low back pain, unspecified back pain laterality, unspecified chronicity, with sciatica presence unspecified 7 Alejandro Reyes. [address] [place] [address], [address] [facility][note 2], [place], [place], [address], [place]. tel:[phone] [facility], [address], [place], [place], [address] , [place] tel: [phone] [place] Low back pain Apr-0 7 Alejandro Reyes. [address] [place] [address], [address], [place], [place], [address], [place]. tel:[phone] [facility], [address], [place], [place], [address] , [place] tel: [phone] [place] Low back pain Mar- 7 Alejandro Lewis [address] [place] [address], [address], [place], [place], [address], [place]. tel:[phone] [facility], [address], [place], [place], [address] , [place] tel: [phone] [place] Type 2 diabetes mellitus with polyneuropath yBenign hypertensionO ther hyperlipidemi aEpilepsy, unspecified, not intractable, without status epilepticusOb esity (BMI 30-39.9)Encou nter for immunizationT hrombocytopen ia Alejandro Reyes. [address] [place] [address], [place] [address], [place], [place], [address], [place]. tel:[phone] Referring Provider: Eric Allen, [address] [place] [address] [address], [place], [address] . tel:[phone] [facility], [address], [place], [place], [address] , [place] tel: [phone] [place] Arthritis of knee, right Alejandro Reyes. [address] [place] [address], [place] [address], [place], [place], [address], [place]. tel:[phone] [facility], [address], [place], [place], [address] , [place] tel: [phone] [facility] Hospital discharge follow-upStat us post total right knee replacementOs teoarthritis of right knee, unspecified osteoarthriti s typeBenign hypertensionT ype 2 diabetes mellitus with polyneuropath yOther hyperlipidemi aEncounter for immunization Alejandro Reyes. [address] [place] [address], [place] [address], [place], [place], [address], [place]. tel:[phone] Referring Provider: Eric Allen, [address] [place] [address], [place], [address] . tel:[phone] [facility], [address], [place], [place], [address] , [place] tel: [phone] [place] Thrombocytope benita Alejandro Reyes. [address] [place] [address], [place] [address], [place], [place], [address], [place]. tel:[phone] Referring Provider: Eric Allen, [address] [place] [address], [place], [address] . tel:[phone] [facility], [address], [place], [place], [address] , [place] tel: [phone] [place] Abnormal blood finding 7 Bryan Zaldivar. [address], [place] [address], [place], [place], [address], [place]. tel:[phone] [facility], [address], [place], [place], [address] , [place] tel: [phone] [place] Sciatica of left side 7 Alejandro Reyes. [address] [place] [address], [place] [address], [place], [place], [address], [place]. tel:[phone] [facility], [address], [place], [place], [address] , [place] tel: [phone] [place] Sciatica of left side 7 Alejandro Reyes. [address] [place] [address], [place] [address], [place], [place], [address], [place]. tel:[phone] [facility], [address], [place], [place], [address] , [place] tel: [phone] [place] Sciatica, unspecified lateralitySci atica of left sideLow back pain 0 7 Alejandro Reyes. [address] [place] [address], [place] [address], [place], [place], [address], [place]. tel:[phone] [employer] [facility], [address], [place], [place], [address] , [place] tel: [phone] [place] Sciatica of left sideFall, subsequent encounterLow back pain 7 Alejandro Reyes. [address] [place] [address], [place] [address], [place], [place], [address], [place]. tel:[phone] Referring Provider: Eric Allen, [address] [place] [address], [place], [address] . tel:[phone] [facility], [address], [place], [place], [address] , [place] tel: [phone] [place] Sciatica of left sideBenign hypertension 7 Bettye Diaz. [address], [address], [place], [place], [address], [place]. tel:[phone] Referring Provider: Eric Allen, [address] [place] [address] [address], [place], [address] . tel:[phone] [employer] [facility] [employer] [facility], [address], [place], [place], [address] , [place] tel: [phone] [place] Type 2 diabetes mellitus with polyneuropath y 6 Alejandro Reyes. [address] [place] [address], [facility] [address], [place], [place], [address], [place]. tel:[phone] [employer] [facility], [address], [place], [place], [address] , [place] tel: [phone] [place] Low back pain 6 Alejandro Reyes. [address] [place] [address], [place] [address], [place], [place], [address], [place]. tel:[phone] [employer] [facility], [address], [place], [place], [address] , [place] tel: [phone] [place] Right kidney stone 6 Alejandro Reyes. [address] [place] [address], [place] [address], [place], [place], [address], [place]. tel:[phone] [employer] [facility], [address], [place], [place], [address] , [place] tel: [phone] [place] Low back painType 2 diabetes mellitus with polyneuropath yEssential (primary) hypertensionH yperlipidemia , unspecifiedEp ilepsy, unspecified, not intractable, without status epilepticusGe neralized abdominal painRight kidney stone 6 Alejandro Reyes. [address] [place] [address], [place] [address], [place], [place], [address], [place]. tel:[phone] Referring Provider: Eric Allen, [address] [place] [address], [place], [address] . tel:[phone] [facility], [address], [place], [place], [address] , [place] tel: [phone] [place] Epilepsy, unspecified, not intractable, without status epilepticus 6 Alejandro Reyes. [address], [facility] [address], [place], [place], [address], [place]. tel:[phone] [facility], [address], [place], [place], [address] , [place] tel: [phone] [place] Epilepsy, unspecified, not intractable, without status epilepticus 5 Alejandro Reyes. [address], [facility] [address], [place], [place], [address], [place]. tel:[phone] [facility], [address], [place], [place], [address] , tel: [phone] [place] Ulcer of left heelDiarrheaL umbago 5 Halenkamp Radha. [address] [place] [address], [facility] [address], [place], [place], [address]. tel:[phone] Referring Provider: Eric Allen, [address] [place] [address], [place], [address] . tel:[phone] [facility], [address], [place], [place], [address] , [place] tel: [phone] [place] Ulcer of left heelPolyneuro esteban in diabetesType II diabetes mellitus 5 Halenkamp Radha. [address] [place] [address], [facility] [address], [place], [place], [address]. tel:[phone] Referring Provider: Eric Allen, [address] [place] [address], [place], [address] . tel:[phone] [facility], [address], [place], [place], [address] , [place] tel: [phone] [place] Right low back painLoose stools 5 Larissa Arnett. [address] [place] [address], [facility] [address], [place], [place], [address], [place]. tel:[phone] Referring Provider: Eric Allen, [address] [place] [address], [place], [address] . tel:[phone] [facility], [address], [place], [place], [address] , tel:[phone] [place] Type II diabetes mellitus with neurological manifestation sPolyneuropat hy in diabetesSplen omegalyNAFLD (nonalcoholic fatty liver disease)HTN (hypertension ), benignHyperli pidemiaRadicu lopathy of arm 5 Alejandro Reyes. [address] [place] [address], [facility] [address], [place], [place], [address], [place]. tel:[phone] Referring Provider: Eric Allen, [address] [place] [address], [place], [address] . tel:[phone] [facility], [address], [place], [place], [address] , tel:[phone] [place] Leukocytosis, unspecifiedOt her nonspecific findings on examination of blood 4 Mar Johnson. [address] [place] [address], [place] [address], [place], [place], [address]. tel:[phone] [employer] [facility] [employer] [facility], [address], [place], [place], [address] , [place] tel:[phone] [place] ObesityUpper abdominal painUpper respiratory infectionAcut e bronchitisTho racic sprain and strainDM (diabetes mellitus), type 2, uncontrolled w/neurologic complicationP olyneuropathy in diabetesSplen omegalyFatty liver 4 Mar Johnson. [address] [place] [address], [place] [address], [place], [place], [address]. tel:[phone] Referring Provider: Eric Allen, [address] [place] [address], [place], [address] . tel:[phone] [facility], [address], [place], [place], [address] , tel:[phone] [place] SplenomegalyN AFLD (nonalcoholic fatty liver disease)Cele lithiasisType II diabetes mellitus with neurological manifestation sPolyneuropat hy in diabetesHyper lipidemia 4 Alejandro Reyes. [address] [place] [address], [address], [place], [place], [address], [place]. tel:[phone] Referring Provider: Eric Allen, [address] [place] [address] [address], [place], [address] . tel:[phone] [facility], [address], [place], [place], [address] , tel: [phone] [place] Benign hypertensionA bdominal pain, acuteObesityP olyneuropathy in diabetesDM (diabetes mellitus), type 2, uncontrolled w/neurologic complication 4 Mar Johnson. [address] [place] [address], [address], [place], [place], [address]. tel:[phone] Referring Provider: Eric Allen, [address] [place] [address] [address], [place], [address] . tel:[phone] [facility] [facility] [employer] [facility], [address], [place], [place], [address] , tel: [phone] [place] No Information 4 Alejandro Reyes. [address] [place] [address], [address], [place], [place], [address], [place]. tel:[phone] Referring Provider: Eric Allen, [address] [place] [address] [address], [place], [address] . tel:[phone] [employer] [facility] [employer] [facility], [address], [place], [place], [address] , tel:[phone] [place] Type II diabetes mellitus, uncontrolled 4 Alejandro Reyes. [address] [place] [address], [address], [place], [place], [address], [place]. tel:[phone] Referring Provider: Eric Allen, [address] [place] [address] [address] [facility][note 2], [place], [address] . tel:[phone] [employer] [facility], [address], [place], [place], [address] , tel: [phone] [place] ObesitySPECIA L SCREENING FOR MALIGNANT NEOPLASMS, OTHER SITESDiabetes Mellitus, Adult Onset, UncontrolledB ronchitis, AcuteSinusiti s, AcuteHyperten stanford, BenignEpileps y, unspecified, without mention of intractable epilepsy 4 Mar Monacon. [address] [place] [address], [facility] [address], [place], [place], [address]. tel:[phone] Referring Provider: Eric Allen, [address] [place] [address], [place], [address] . tel:[phone] [facility], [address], [place], [place], [address] , [place] tel: [phone] [place] Acute bronchitisHyp ertension, Benign 4 Bettye Diaz. [address] [place] [address], [address], [place], [place], [address], [place]. tel:[phone] Referring Provider: Eric Allen, [address] [place] [address], [place], [address] . tel:[phone] [facility], [address], [place], [place], [address] , [place] tel: [phone] [place] No Information 3 Alejandro Reyes. [address] [place] [address], [place] [address], [place], [place], [address], [place]. tel:[phone] [facility], [address], [place], [place], [address] , [place] tel: [phone] [place] NEED FOR PROPHYLACTIC VACCINATION AND INOCULATION, INFLUENZABack ache, unspecifiedFl ank painObesity, unspecifiedDi abetes mellitus without mention of complication, type II or unspecified type, uncontrolled 0 3 Alejandro Reyes. [address] [place] [address], [facility] [address], [place], [place], [address], [place]. tel:[phone] Referring Provider: Eric Allen, [address] [place] [address], [place], [address] . tel:[phone] [facility], [address], [place], [place], [address] , tel: [phone] [place] Left knee DJDPre-op examDM (diabetes mellitus), type 2 with neurological cPolyneuropat hy in diabetesBenig n essential hypertensionH ypertriglycer idemiaElev transaminase/ LDH 3 Larissa Arnett. [address], [facility] [address], [place], [place], [address], . tel:[phone] Referring Provider: Chetan Brink, [address], [place], [address]. tel:[phone] [facility], [address], [place], [place], [address] , [place] tel: [phone] [place] Diabetes mellitus without mention of complication, type II or unspecified type, uncontrolledP olyneuropathy in diabetesBenig n essential hypertensionO ther and unspecified hyperlipidemi aUnspecified arthropathy involving lower legEsophageal reflux 2 Pricila Avila. [address], [address], [place], [place], [address], [place]. tel:[phone] [facility], [address], [place], [place], [address] , [place] tel: [phone] [facility] NEED FOR PROPHYLACTIC VACCINATION WITH COMBINED DIPHTHERIA-TE TANUS-PERTUSS IS (DTP) (DTAP) VACCINENEED FOR PROPHYLACTIC VACCINATION AND INOCULATION, OTHER VIRAL DISEASESDiabe felipe mellitus without mention of complication, type II or unspecified type, uncontrolledU nspecified idiopathic peripheral neuropathyEnt hesopathy of knee, unspecifiedBe nign essential hypertensionO besity, unspecified 2 Alejandro Reyes. [address], [address], [place], [place], [address], [place]. tel:[phone] Referring Provider: Eric Allen, [address] [place] [address] [address], [place], [address] . tel:[phone] [facility], [address], [place], [place], [address] , tel: [phone] [place] Benign essential hypertensionD iabetes mellitus without mention of complication, type II or unspecified type, uncontrolledO ther and unspecified hyperlipidemi aScreening for malignant neoplasms of the prostate 2 Alejandro Reyes. [address] [place] [address], [address], [place], [place], [address], [place]. tel:[phone] Referring Provider: Eric Allen, [address] [place] [address] [address], [place], [address] . tel:[phone] [facility], [address], [place], [place], [address] , [place] tel:[phone] [place] Diabetes mellitus without mention of complication, Other and unspecified hyperlipidemi aNEUROPATHY IN DIABETES 1 Alejandro Reyes. [address] [place] [address], [facility] [address], [place], [place], [address], [place]. tel:[phone] Referring Provider: Eric Allen, [address] [place] [address], [place], [address] . tel:[phone] [facility], [address], [place], [place], [address] , [place] tel:[phone] [facility] 1 Patricio Haque. [address] [place] [address], [place] [address], [place], [place], [address], [place]. tel:[phone] [facility], [address], [place], [place], [address] , [place] tel:[phone] [place] Diabetes mellitus without mention of complication, HYPERLIPIDEMI A NEC/NOS 1 Alejandro Reyes. [address] [place] [address], [facility] [address], [place], [place], [address], [place]. [phone] Referring Provider: Eric Allen, [address] [place] [address], [place], [address] . tel:[phone] [facility] [address], [place], [place], [address] , [place] tel:[phone] [place] DM Controlled, No Complication 1 Alejandro Reyes. [address] [place] [address], [place] [address], [place], [place], [address], [place]. tel:[phone] Referring Provider: Eric Allen, [address], [place], [address] . tel:[phone] [facility], [address], [place], [place], [address] , [place] tel: [phone] [place] DMII WO CMP NT ST UNCNTRHYPERTE NSION NOS Aug- 3 1 Alejandro Reyes. [address] [place] [address], [address], [place], [place], [address], [place]. tel:[phone] [facility], [address], [place], [place], [address] , [place] tel: [phone] [place] DMII WO CMP UNCNTRLDHYPER LIPIDEMIA NEC/NOSNEUROP ATHY IN DIABETES 1 Alejandro Reyes. [address] [place] [address], [address], [place], [place], [address], [place]. tel:[phone] [facility], [address], [place], [place], [address] , [place] tel: [phone] [place] BENIGN HYPERTENSIONG OUT NOS 1 Bryan Zaldivar. [address] [place] [address], [address] [facility][[address] 2], [place], [place], [address], [place]. tel:[phone] [facility], [address], [place], [place], [address] , [place] tel: [phone] [place] ESOPHAGEAL REFLUX Sep-2 - 0 Gaever Elizabeth. [address] [place] [address], [place] [address], [place], [place], [address]. tel:[phone] [facility], [address], [place], [place], [address] , [place] tel: [phone] [place] SCRN MALIG NEOP-PROSTATE Sonu-0 4-201 0 Bryan Zaldivar. [address] [place] [address], [address], [place], [place], [address], [place]. tel:[phone] [facility], [address], [place], [place], [address] , [place] tel: [phone] [facility] ND VAC STRPTCS PNEUMNI B 0-201 0 Alejandro Reyes. [address] [place] [address], [address], [place], [place], [address], [place]. tel:[phone] [facility], [address], [place], [place], [address] , [place] tel: [phone] [facility] IDIO PERIPH NEURPTHY NOS 0-201 0 Bryan Zaldivar. [address] [place] [address], [place] [address], [place], [place], [address], [place]. tel:[phone] [facility], [address], [place], [place], [address] , [place] tel: [phone] [place] URINARY INCONTINENCE NOS 0-200 9 Alejandro Reyes. [address] [place] [address], [place] [address], [place], [place], [address], [place]. tel:[phone] [facility], [address], [place], [place], [address] , tel: [phone] [facility] NEURALGIA/MAXIMUS RITIS NOS 4-200 9 Bryan Zaldivar. [address] [place] [address], [address] [facility][[address]], [place], [place], [address], [place]. tel:[phone] [facility], [address], [place], [place], [address] , [place] tel: [phone] [place] CERVICALGIA 6-200 8 Bryan Zaldivar. [address] [place] [address], [place] [address], [place], [place], [address], [place]. tel:[phone] [facility], [address], [place], [place], [address] , [place] tel: [phone] [facility] BPH LOC W/O UR OBS/LUTS 7-200 8 Larissa Arnett. [address] [place] [address], [place] [address], [place], [place], [address], [place]. tel:[phone] [facility], [address], [place], [place], [id number] , [place] tel: [phone] [facility] PREOP EXAM UNSPCFLONG-TE RM USE MEDS NEC 8-200 8 Bryan Zaldivar. [address], [address], [place], [place], [address], [place]. tel:[phone] [facility], [address], [place], [place], [address] , [place] tel: [phone] [facility] RETINAL DETACHMENT NOS Feb- 8-200 8 Dias Hope. [address], [address], [place], [place], [address], [place]. tel:[phone] [facility], [address], [place], [place], [id number] , [place] tel: [phone] [facility] JOINT PAIN-SHLDER Apr-3 0-200 7 Bryan Zaldivar. [address] [place] [address], [address], [place], [place], [address], [place]. tel:[phone] [facility], [address], [place], [place], [address] , [place] tel: [phone] [facility] SYNOV/TEND/BU RSA DIS NEC Oct-2 4-200 6 Alejandro Reyes. [address] [place] [address], [address], [place], [place], [address], [place]. tel:[phone] [facility], [address], [place], [place], [address] , [place] tel: [phone] [facility] LOC PRIM OSTEOARTH-WRIGHT D Aug-2 8200 6 Bryan Zen. [address] [place] [address], [facility] [address], [place], [place], [address], [place]. tel:[phone] [facility], [address], [place], [place], [address] , [place] tel: [phone] [facility] CATARACT NOS Apr-1 4-200 5 Bryan Zaldivar. [address] [place] [address], [address], [place], [place], [address], [place]. tel:[phone] [facility], [address], [place], [place], [address] , [place] tel: [phone] [facility] RESPIRATORY ABNORM NEC Feb-0 8200 2 Conversion Doctor. Formerly [facility], [facility], [place], [address], [place]. [facility], [address], [place], [place], [address] , [place] tel: [phone] Picacho No Information 1 Alejandro Reyes. [address], [address], [place], [place], [address], [place]. tel:[phone] [facility], [address], [place], [place], [address] , [place] tel: [phone] Picacho JARET IVETT CEREBR MENINGES 0 1 Bryan Zaldivar. [address], [address], [place], [place], [address], [place]. tel:[phone] Family History Family Member Type Diagnosis Age At Onset Problem (finding) No family history of Ca ncer, colon Problem (finding) No family history of Ca ncer, prostate Brother Problem (finding) coronary arterioscleros is Immunizations Vaccine Date Status Comments Tdap administered Note: [facility] ; Source: Other Registry I-Stand (Bivalent Booster) CO VID Vac, 30mcg/0.3mL, 12+ years administered Note: [facility] ; Source: Other Registry Fluzone High-Dose, high dose , preservative free administered Source: New Immuniza tion Record Pfizer (Diluent Reconstitute d) COVID19 Vaccine, 0.3mL per dose, 2 doses, administered 21 days apart administered Note: [facility] ; Source: Other Provider Fluzone High-Dose, high dose , preservative free administered Source: New Immuniza tion Record Pfizer-BioNTech COVID19 Vaccine, 0.3mL per dose, 2 doses, administered 21 days apart [facility] ; Source: [facility] ther Provider Pfizer-BioNTech COVID19 Vaccine, 0.3mL per dose, 2 doses, administered 21 days apart administered [facility]: [facility] ; Source: O ther Provider Fluzone High-Dose, high dose , preservative free administered Source: New Immuniza tion Record Fluzone High-Dose, high dose , preservative free administered Source: New Immuniza tion Record Fluzone Quad, split virus, 0.5mL dosage administered Source: New Immuniza tion Record Fluzone Quad , spli t virus, 0.5mL dosage administered Source: New Immuniza tion Record Pneumococcal polysaccharide PPV23 administered Source: New Immuniza tion Record Pneumococcal conjugate PCV 13 administere d Source: New Immunization Record Influenza, seasonal, injecta ble (3 yrs or older) administered Note: [id number] ; S ource: New Immunization Record Flu (split) (3 yrs or older) administered Note: [facility] [id number] ; Source: New Immunization Record Zoster administered Note: [facility] [id number] ; Source: New Immunization Record Tdap administered Note: [facility] [id number] ; Source: New Immunization Record 41801 - Pneumococcal_PPV23 administered S ource: Source Unspecified Payers Payer name Insurance type Covered libertarian ID Authoriza tion(s) [employer] MDCR GOLD ADVANTAGE HMO MB [id number] 0 [employer] MDCR GOLD ADVANTAGE HMO MB [id number] [employer] MDCR GOLD ADVANTAGE O MB [id number] [employer] MDCR GOLD ADVANTAGE O MB [id number] [employer]ET[employer] MDCR GOLD ADVANTAGE HMO MB [id number] A[employer]CR GOLD ADVANTAGE HMO MB [id number] [employer] GOLD ADVANTAGE HMO MB [id number] AET[employer] MDCR GOLD ADVANTAGE O MB [id number] A[employer] MDCR GOLD ADVANTAGE O MB [id number] [facility] [employer] CI [id number] Social History Type Description Quantity Date Captured Comments Sex Male Smoking Status No Information Sexual Orientation Straight or heterosexual Gender Identity Male Chief Complaint And Reason For Visit No Information Reason For Referral Reason For Referral No Information Plan Of Treatment Date Type Action Status Goal Dietary management education , guidance, and counseling completed Apr-12-2022 Goal Dietary management education , guidance, and counseling completed Goal Dietary management education , guidance, and counseling completed Goal Dietary management education , guidance, and counseling completed Goal Dietary management education , guidance, and counseling completed Goal Dietary management education , guidance, and counseling completed Goal Dietary management education , guidance, and counseling completed Goal Dietary management education , guidance, and counseling completed Goal Dietary management education , guidance, and counseling completed Goal Dietary management education , guidance, and counseling completed Referral Referred To: [address], [phone] Ordered: COLONOSCOPY, Flexible, Proximal To Splenic, Diagnostic, Wor W/O Collection Of Sp ordered Referral Referred To: Geovanni Maria [address] [place], [place], [phone] Ordered: Referrals: Orthopedic Surgery. Geovanni Maria. Evaluation/diagnostic/treatment - Level 3 ordered Referral Referred To: Connor Linda DPM D.P.M [address] [facility] [place], [phone] Ordered: Referrals: Podiatry. Connor Linda DPM D.P.M. Evaluation/diagnostic/treatment - Level 3 Appointment date/timeframe: 09/19/2019 ordered Referral Ordered: EGD (esophagogastroduodenoscopy) ordered Referral Referred To: Lyudmila Tidwell MD [address] [facility] [address] [place], [phone] Ordered: Referrals: Gastroenterology. Lyudmila Tidwell MD. Evaluation/diagnostic/treatment - Level 3 Appointment date/timeframe: 04/05/2019 ordered Referral Referred To: Fili Hernandez [address] [place], [place], [phone] Ordered: Referrals: Orthopedic Surgery. Fili Hernandez. Evaluation/diagnostic/treatment - Level 3 Appointment date/timeframe: 03/18/2019 ordered Referral Referred To: Paul Wyatt MD [address] [facility]
[address] [place], [phone] Ordered: Referrals: Neurology. Paul Wyatt MD. Evaluation/diagnostic/treatment - Level 3 Appointment date/timeframe: 03/14/2019 ordered Referral Referred To: Paul Okeefe MD [address] [place], [phone] Ordered: Referrals: Orthopedic Surgery. Paul Okeefe MD. Evaluation/diagnostic/treatment - Level 3 Appointment date/timeframe: 03/07/2019 ordered Referral Ordered: COLONOSCOPY AND BIOPSY ordered History Of Present Illness Encounter Date Complaint History Of Prese nt Illness CC. Pt presents in t he office for management of chronic conditions.DM w/neuropathy with senior living insulin use: Pt compliant with Metformin 1000 mg BID, Lantus, Insulin Aspart, and Jardiance.. Pt compliant with Nortriptyline and also followed by neurologist, Dr Wyatt. Pt reports he is not longer using Carley monitor because he kept knocking it off while moving. Patient reports he last used it in December. Lumbar radiculopathy: Patient has followed up with pain management and ortho for pain. He is going to have an EMELIA on 03/16. Patient has had increased sciatica pain down the left leg since January 26. Patient would like to have his oxycodone renewed and a medical marijuana card filled out. Anemia: Patient is compliant with iron supplement. No new concerns. HTN w/CKD III/ CKD III 3b: Compliant with Ramipril 10 mg. Denies chest pain or dyspnea.Hypertriglyceridemia: Pt compliant with Atorvastatin 20 mg. No myalgias reported. Pt has been taking OTC krill oil. Pt has not been taking Vascepa for 2 weeks.History of TIA- in 10/2013- continues on Clopidogrel and Atorvastatin- no stroke-like symptoms reported. Pt had last appointment with neuro last year.History of cardiomyopathy- in 01/2005, hospitalized, with CHF, EF 25-30%, unclear of cause, cardiac cath negative- echocardiogram in 08/2010: mild-moderate LV systolic dysfunction, with EF 45-50%, negative nuclear stress test. Pt compliant with ramipril. No complaints reported.Epilepsy: remains seizure-free since 2001 and continues to be followed by neurologist, Dr Wyatt every 6 months. Immunization: Pt reports that he has not gotten a COVID booster shot yet, unsure if he needs this.Senile purpura: Pt reports that he has been bumping into things often. He stopped taking Plavix but still gets a large amount of bruising on his shins. Pt has been using knee pads often, which has helped reduced lesions on his knees.Obesity - Maintaining healthy lifestyle. Patient recently completed his move of houses. RHM: Patient has not found a new PCP in [place] yet. Patient encounter Chief complain t: nasal congestion and sciatic nerve.Pt is being seen today via Telehealth with audio and video components. The telehealth modality was utilized and the patient consented to telehealth.Nasal congestion: since the last week. not improving or worsening. Denies sinus pressure or pain. Denies cough or fever. No sinus drainage or sore throat. He has not tried a COVID test.sciatic nerve: reports back pain, radiates down left leg, for the last ten years. He has had 4 incidents in last ten years where he has received injection in back, goes away for few years, and then returns. Previously completed with [facility] orthopedics and [place]. Pt does not have a phone number to call for an appointment. 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 Pt compliant with Nortriptyline and also followed by neurologist, Dr Wyatt. Pt reports that it has been very hard and stressful for him recently, which is why blood sugar has been especially bad.HTN w/CKD III/ CKD III 3b: Compliant with Ramipril 10 mg. Denies chest pain or dyspnea.Hypertriglyceridemia: Pt compliant with Atorvastatin 20 mg. No myalgias reported. Pt has been taking OTC krill oil. Pt has not been taking Vascepa for 2 weeks.History of TIA- in 10/2013- continues on Clopidogrel and Atorvastatin- no stroke-like symptoms reported. Pt had last appointment with neuro last year.History of cardiomyopathy- in 01/2005, hospitalized, with CHF, EF 25-30%, unclear of cause, cardiac cath negative- echocardiogram in 08/2010: mild-moderate LV systolic dysfunction, with EF 45-50%, negative nuclear stress test. Pt compliant with ramipril. No complaints reported.Epilepsy: remains seizure-free since 2001 and continues to be followed by neurologist, Dr Wyatt every 6 months. Immunization: Pt reports that he has not gotten a COVID booster shot yet, unsure if he needs this.Senile purpura: Pt reports that he has been bumping into things often. He stopped taking Plavix but still gets a large amount of bruising on his shins. Pt has been using knee pads often, which has helped reduced lesions on his knees.Obesity - Maintaining healthy lifestyle has been preparing his house to move. Clinical Pharmacy Patient presen ts for f/up for diabetes management and CGM upload. All medications were reviewed.S:Per patient, eats breakfast around 8:30-9 AM (oatmeal, cereal, occasionally eggs and sausage), lunch around 1-2 PM (sandwich on keto bread), and dinner around 6-7 PM (meat and veggies, no bread or pasta). Has not been exercising as much recently due to weather, but tries to walk dog around 30 minutes each day and use a stationary bike for 30 min a day. Reports no BG <70, however thought one dropped into the 80s and ate applesauce to treat, with BG coming up to 150 after eating. If BG >350, says he can feel lethargic, but this does not happen very often. Having some neuropathy in his hands, specifically in the first two fingers on both hands. O:Pertinent Labs-06/20/21: A1c 9.2-03/23/21: SCr 1.51, eGFR 46-12/27/20: UACR 23-09/06/20: total cholesterol 105, LDL 10, HDL 32, trigs 315Eyes: [facility] (pt believes he's [facility] to date on this)Foot Exam: monofilament- 0/10 L, 06/06 RImmunizations:-COVID-19: (Pfizer) 07/14/20, 08/04/20, 04/25/21-Flu: 03/23/21-PPSV23: 10/04/09, 10/18/16-PCV13: 12/15/15-TDAP: 01/03/12-Shingrix: X Clinical Pharmacy S: Pt presents to clinic to upload his FSL2 CGM. He completed a 2 week trial of the CGM and found it beneficial. Confirms taking Novolog 70/30: 57 units before breakfast and dinner, metformin 1,000 mg BID and Jardiance 25 mg daily with good adherence. He is in the coverage gap so medication cost is expensive currently. He usually eats breakfast around 9am, lunch around 1 pm, and dinner around 6-6:30 pm. He has been trying to limit his carbs. Breakfast is eggs and sausage or a keto shake. Lunch varies, but could be a sandwich on keto bread, and dinner is meat and veggies. He does stray from his diet on occasion. Using the monitor he has realized snacks such as SF cookies still contain carbs and raise his BG. He has been walking for around 30 min in the morning and notices his BG is higher after. He is riding his stationary bike around 1 time/week. 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 Pt compliant with Nortriptyline and also followed by neurologist, Dr Wyatt. Pt reports that it has been very hard and stressful for him recently, which is why blood sugar has been especially bad.Grief: Pt's recently , but this wasn't a big surprise as she had been sick for a while.Sciatica: Continues to use hydrocodone. No complaints of worsening pain.HTN w/CKD III/ CKD III 3b: Compliant with Ramipril 10 mg. Denies chest pain or dyspnea.Hypertriglyceridemia: Pt compliant with Atorvastatin 20 mg. No myalgias reported. Pt has been taking OTC krill oil. Pt has not been taking Vascepa for 2 weeks.History of TIA- in 10/2013- continues on Clopidogrel and Atorvastatin- no stroke-like symptoms reported. Pt had last appointment with neuro last year.History of cardiomyopathy- in 01/2005, hospitalized, with CHF, EF 25-30%, unclear of cause, cardiac cath negative- echocardiogram in 08/2010: mild-moderate LV systolic dysfunction, with EF 45-50%, negative nuclear stress test. Pt compliant with ramipril. No complaints reported.Epilepsy: remains seizure-free since 2001 and continues to be followed by neurologist, Dr Wyatt every 6 months. Immunization: Pt reports that he has not gotten a COVID booster shot yet, unsure if he needs this.Senile purpura: Pt reports that he has been bumping into things often. He stopped taking Plavix but still gets a large amount of bruising on his shins. Pt has been using knee pads often, which has helped reduced lesions on his knees.Obesity - Maintaining healthy lifestyle has been hard with 's illness and recent . bilateral ear ear clogged , legs feel heavy Pt reports symptoms of heaviness to his bilateral feet daily when he wakes up in the morning. he will have episodes of feeling off balance. no falls. when he is up moving around things will get better. He will take a walk and his legs feel less heavy. he does have neuropathy chronic but does not describe it as a numbness or tingling pain. no complaints of swelling to legs. states this has been going on for 2 months. some worsening urinary frequency over the past year. he states that he has been very stressed this year, family concernsbilateral ear impaction: he will feel off balance or dizzy at times. he has chronic wax problems and chronic significant wax. Clinical Pharmacy S: Patient pre sents to clinic for follow-up of chronic conditions. He confirmed he was taking all as directed except Vascepa. He reports not taking Keflex anymore but is taking OTC Krill Oil 1 tablet daily. Overall he is feeling well. He reports that the last 3 months have been hectic and he has felt stressed because his has frontotemporal dementia. Patient denies having chest pain, edema, palpitations, abdominal pain, dysuria, weight change, or change in stool patterns. Type 2 Diabetes Mellitus: He stated that he has not been testing his SMBG for the last three months because of how hectic things are with his . He reports that when he checked them about three months ago they were all over the place ranging from 90-250mcg/dL. He denies having any s/sx of hypoglycemia. For exercise he used to walk the dog or ride bikes but now with the weather getting colder he has stopped about a month ago. For diet he reports eating low carbohydrate foods such as lean protein and vegetables. He does state that he checks his feet daily and wears supportive foot care. He states that he did have a sore on his R foot which he has monitored closely but with being on clopidogrel his skin is thin/tears easily. He denies having any tingling/numbness in his lower extremities. He states he has no feeling at all in his feet. He reports seeing [facility] in [facility] recently for his annual eye exam. Hypertension: Patient does not check BP at home but denies having any dizziness or lightheadedness while being on Ramipril. Hyperlipidemia: Patient denies having any muscle pain while being on Atorvastatin. He states that he was taking Vascepa 1 tablet BID instead of 2 tablets BID for high TG; however, he ran out of the samples he received on 03/10/20 about 2 weeks ago. He also was taking Krill Oil OTC 1 tablet daily.Epilepsy: Patient denies having any seizures since 2001. He has follow-up with neurology on 03/2020. TIA: Patient denies having any s/sx of bleeding while being on clopidogrel. Sciatica: Patient denies having much back pain since he received IR guided injection to L5/S1 on 07/2019 by ortho surgery. He rates his pain a 0-3/10 (10=worst). GERD: Patient reports taking Protonix 40mg daily and denies having any heartburn symptoms. He stated that he had started this about 2 years ago when he had a stomach bleed. 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 Pt compliant with Nortriptyline and also followed by neurologist, Dr Wyatt. Pt reports pain of 3/10. Pt sees service car driver for feet and notes they removed pus.Sciatica: Pt rarely uses hydrocodone for spasms once in a while. Pt notes back is much better after injections.HTN w/CKD III/ CKD III: Compliant with Ramipril 10 mg. Denies chest pain or dyspnea.Hypertriglyceridemia: Pt compliant with Atorvastatin 20 mg. No myalgias reported. Pt has been taking OTC krill oil. Pt has not been taking Vascepa for 2 weeks.History of TIA- in 10/2013- continues on Clopidogrel and Atorvastatin- no stroke-like symptoms reported. Pt had last appointment with neuro last year.History of cardiomyopathy- in 01/2005, hospitalized, with CHF, EF 25-30%, unclear of cause, cardiac cath negative- echocardiogram in 08/2010: mild-moderate LV systolic dysfunction, with EF 45-50%, negative nuclear stress test. Pt compliant with ramipril. No complaints reported.Epilepsy: remains seizure-free since 2001 and continues to be followed by neurologist, Dr Wyatt every 6 months. Obesity - No changes in diet/exercise reported. Lesion on bottom of right foot C ellulitis: Pt states that he stepped on a omar pearce 2 months ago. He noticed the sore about 2 weeks ago when it started hurting. He has another lesion on the top of the R big toe, which he received after bumping into a chair. He came to the office with it wrapped in a band-aid due to it bleeding. He has several small scabbed lesions on the tops of his smaller toes ROZINA; 1 of which he noticed bleeding this morning. He does not remember where most of the lesions came from. He completes daily foot exams. He reports that he wears shows around the house always due to the neuropathy with his DM. He states that he does see a service car driver, but not regularly.DM w/neuropathy: Pt is med compliant. His sugars are running in the 130s at home. He completes daily foot exams. No complaints reported.Obesity: No reported change in diet or exercise. chronic conditions chronic conditions (comments) Di abetes- on Metformin 1000 mg BID, Novolog Mix 70/30 and Jardiance - 1000 mg BID and Novolog Mix 70/30, 57 units before breakfast and dinner- ran out of insulin 3-4 days ago, script runs out early each month, he asks that it be changed- began Jardiance in when Hgba1c was 9.5- dosage increased to 25 mg son 03/02, when Hgba1c was 8.9- not checking home blood glucose levels - no hypoglycemic symptoms- also FELIPA and statin (no ASA since on Clopidogrel) - eye exam recently, per patient, no report - needs flu vaccine- walks and rides bike for exercise. Polyneuropathy - on Nortriptyline, effective- rare symptoms in feet- also followed by neurologist, Dr Wyatt. Hypertension- controlled on Ramipril 10 mg - no chest pain or dyspnea.CKD 3- on Ramipril- stable, with eGFR's in 50's and microalbuminuria on at least 2 occasions over 3 months apart. Hypertriglyceridemia- on Atorvastatin 20 mg- also takes krill oil- history of high triglycerides, as high as 600, and low HDL- was on Fenofibrate in the past- FLP in 11/2019: triglycerides 611, LDL 52, HDL 30. History of TIA- in 10/2013 - continues on Clopidogrel and Atorvastatin- no stroke-like symptoms - exercises. History of cardiomyopathy- in 01/2005, hospitalized, with CHF, EF 25-30%, unclear of cause, cardiac cath negative- echocardiogram in 08/2010: mild-moderate LV systolic dysfunction, with EF 45-50%, negative nuclear stress test- on Ramipril- no chest pain, dyspnea, edema, weight gain. Epilepsy- history of brain tumor, benign, meningioma, removed in 1995- remains seizure-free since 2001 - off medication for many years- continues to be followed by neurologist, Dr Wyatt every 6 months. Obesity - weight fluctuates a few lbs- BMI 31.42- walks and rides bike for exercise. Chronic condition DM w/neuropath y: Pt states compliant with current treatment. No hypoglycemic episodes reported. Reports 150 blood sugar. HTN: Pt states med compliance. Denies CP, edema, SOB. palpitations, or light-headedness.HLD: Pt is med compliant. No Sx reported today. Epilepsy: Pt states med compliant. No seizures reported.Obesity: No dietary changes reported. Pt states starting to bike again. Gained weight since last visit.Sciatica: No worsening pain reported. After receiving shot in October, pt rarely takes hydrocodone anymore. Hx of TIA: Reports med compliance with Clopidigerol. No issues reported. chronic condition DM: Pt states compliant with current treatment. Reports an average BS of 130-160s with one odd readig on 94. No hypoglycemic episodes reported. HTN: Pt states med complaint. Denies CP, edema, SOB. palpitations, or light-headedness.HLD: Pt is med compliant. No Sx reported today. Epilepsy: Pt states med compliant. He is no longer taking Topamax. No seizures reported.Obesity: No dietary or exercise changes reported.Sciatica: No worsening pain reported. Notes med compliance. Gastritis: Reports that he was in the hospital for GI bleeding from taking too much Alleve. Notes that his stools are still dark so he thinks he is still bleeding.Hx of TIA: Reports med compliance with Clopidigerol. No issues reported.Iron supplement: Reports med compliance with iron supplement. [facility] follow up [facility] f neal velasquez (comments) f/u Hospitalization, [facility], 01/20- 01/23/19Was seen here on 12/23 for generalized abdominal pain of 3 days - was sent to [facility] ER -after waiting several hours in ER, he decided to leave. Abdominal pain continued - he decided to go to [facility] ER when pain became intense and began radiating to chest and upper back. CT abdomen showed large amount of stool, but no acute process- BUN was elevated, Hgb 11.8 - gastroenterology and surgery were consulted - noted that he had been taking Aleve, 4 daily, for a few years - Plavix was held, PPI was started- Hgb levels dropped, but stabilized: 8.9 on 01/21, 8.2 on 01/22, 7.6 and 8.3 on 01/23, with ferritin 26. EGD was considered, but abdominal pain resolved so no scoping was performed. Was discharged to home on 01/23, on Pantoprazole 40 mg BID, Plavix was resumed - was advised to schedule colonoscopy in 1 month. Since home, continues on Pantoprazole 40 mg BID, remains off Aleve/ NSAID's- no recurrence of abdominal pain - has scheduled colonoscopy with Dr Tidwell, for 02/05, but will call and postpone to later, since he was advised to wait a month. Diabetes with neuropathy- on Metformin 1000 mg BID and Novolov Mix 70-30, 57 units with breakfast and supper - also on Nortriptyline for neuropathy - AM glucose levels at home running 150-170 - Hgba1c during hospital, on 01/20, was 7.2- watching diet, limits carbs- rides bike daily. Stomach pains x 3 days. Vomiting Pt, a 68 year old male, presents accompanied by his with abdominal pain.Abdominal pain: Pt reports constant abdominal pain and nausea began approximately 3 days ago. He currently rates pain 7/10 and states he has been unable to sleep at night due to pain. Pt has taken OTC Aleve and Tylenol with no relief. Pt had one emesis episode on 12/21 and one on 12/22. He has only eaten soup since symptoms began and has not had a BM. Pt has also developed a headache. He has previously undergone both a cholecystectomy and appendectomy. Pt has not been able to drink adequate amounts of fluid. Diabetes: Since symptoms began, he has not been checking his BS regularly. No reports of visual changes or neuropathy symptoms. Sciatica nerve: He recently experienced a fall in September 2018. His symptoms were exacerbated so he has been taking Hydrocodone 10 mg Acetaminophine 325 mg twice daily. He is currently requesting a refill. He states he is scheduled to begin physical therapy within the next week. R leg pain after fall Hematoma R ight Thigh/ Fall: Pt presents today s/p ER visit at [facility] 10/16/18. States he fell off a ladder when it flipped. Had CT positive for hematoma in RLE (thigh). Today pt reports pain in right thigh radiating down his leg for the last 5 days, seems to be exacerbated by bike riding. Started taking hydrocodone 5 days ago when pain became moderate to severe again, prior to that was able to manage with Aleve. He has hx of right TKR 2 years ago. Thrombocytopenia: Per ER labs with history. Has seen Dr. Corbin, oncology. Functional Status Date Functional Assessmen t No Information Instructions Date Instruction Additional Infor jumana Unchanged. Continue to follow up with Dr. Maria. Monitor. Related to Degenerative disc disease, lumbar See plan above. Related to Scoli osis of thoracolumbar spine, unspecified scoliosis type In 10/2013, without r ecurrence. Continue Atorvastatin 20 mg and clopidogrel. Healthy diet, regular exercise, weight loss encouraged. Continue to monitor. Related to History of cardiomyopathy BMI of 31.5 today. T ry to cut back on calories. Most people should eat between 6419-4344 calories to lose weight. Decrease your carbohydrate intake to less than 150g per day if possible and increase protein to help with hunger. Increase activity to 30min 4-5 days a week. Focus on drinking plenty of water daily and getting adequate sleep. If you need further help with weight loss please let me know. Will continue to monitor.RHM: Due for colonoscopy in 05/2022. Due for TDAP. Patient will receive from pharmacy. Charting performed by Itzel Newberry acting as scribe for Itzel Altamirano. DO Alejandro; I reviewed the chart and agree with and approve of the documentation. Related to Obesity (BMI 30.0-34.9) Continue to wear kne e pads when kneeling. No major falls reported. Encouraged patient to take care upon ambulation and changing positions. Discussed with pt the importance of remaining active on a daily basis. Will continue to monitor. Related to Senile purpura Chronically low. Con tinue treatment with ferritin supplement. Will check iron panel, ferritin, PTH, and vitamin D today. Related to Anemia, unspecified type Stable. continue cristine atment plan set by neurology. Related to Tremor Symptomatic in left leg. Continue to follow up with Dr. Maria and pain management. Monitor. Related to Sciatic pain, unspecified laterality In 10/2013, without r ecurrence. Continue Atorvastatin 20 mg and clopidogrel. Healthy diet, regular exercise, weight loss encouraged. Continue to monitor. Related to History of transient ischemic attack (TIA) Per Dr. Wyatt - N eurologist this is not related to patients diabetes. Continue with Nortriptyline BID. Continue to follow up with Neuro as scheduled. Will continue to monitor. Related to Idiopathic neuropathy Stable. Continue fol lowing up with neuro. Continue current treatment plan. Monitor. Related to Nonintractable epilepsy without status epilepticus, unspecified epilepsy type Encouraged a low-cho lesterol diet with regular cardiovascular exercise as tolerated. Continue treatment with Atorvastatin 40 mg. Will continue to monitor. Related to Hypertriglyceridemia This has been diagno sed by the Glomerular Filtration Rate (GFR). This is just an indication that the kidneys are not functioning at 100%, but is no reason for concern at this time. Make sure to drink plenty of water. We are monitoring this closely. Good control of all other medical conditions is important to keep this from worsening as well. Will check CMP and phosphate today. Related to Chronic kidney disease, stage 3b Last A1c was 7.3% on 11/2021. Continue Metformin 1000 mg BID; Lantus 55 units before breakfast; Insulin Aspart 18 units before breakfast, 16 units before lunch, and 18 units before dinner; and Jardiance 25mg. Continue Ramipril and Atorvastatin. Continue Nortriptyline for neuropathy. Patient is no longer using Carley Monitor to check sugars. Encouraged patient to avoid processed sugars and to maintain a healthy, balanced low-carb diet with regular exercise. Encouraged daily self-vigilant foot exams and annual eye exams. Continue to monitor. Pt saw neuro Dr. Wyatt on 08/31/2021, who did a foot exam showing decreased sensation to the upper calves. Status: Able to self-manage condition. Goals: Your goal is to monitor your diabetes. Barriers: No barriers to goal achievement have been identified.Labs: A1c Related to Type 2 diabetes mellitus with stage 3 chronic kidney disease, with long-term current use of insulin, unspecified whether stage 3a or 3b CKD Controlled. Continue current treatment plan of Ramipril 10 mg qd. Encouraged pt to measure BP after sitting for 5 min, repeat for 3 readings over span of 15 min. Encouraged low-sodium diet. Will continue to monitor. Related to Hypertensive kidney disease with stage 3b chronic kidney disease See plan above. 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 orthopedics and once at [place]. Last seen 2019 at [facility] with CANDELARIO Pearl. Discussed Pt should call [facility] orthopedics to schedule appointment, and notify office. Will monitor. Pt trying to find new PCP in [place]. If unable, Pt should f/u with Dr. Alejandro fonseca.Charting performed by Kayla Cramer, acting as scribe for Hope Dias NP: I reviewed the chart and agree with and approve of the documentation Related to Sciatic pain, unspecified laterality Advised Pt to comple te COVID test at home. If Sx not improving, can start round of antibiotics. Continue to monitor. Related to Nasal congestion BMI of 33.1 today. T ry to cut back on calories. Most people should eat between 8998-7112 calories to lose weight. Decrease your carbohydrate intake to less than 150g per day if possible and increase protein to help with hunger. Increase activity to 30min 4-5 days a week. Focus on drinking plenty of water daily and getting adequate sleep. If you need further help with weight loss please let me know. Will continue to monitor.Patient is moving to [place] in the future and may find a new PCP. Charting performed by Itzel Newberry acting as scribe for Itzel Altamirano. DO Alejandro; I reviewed the chart and agree with and approve of the documentation. Related to Obesity (BMI 30.0-34.9) In 10/2013, without r ecurrence. Continue Atorvastatin 20 mg and clopidogrel. Healthy diet, regular exercise, weight loss encouraged. Continue to monitor. Related to History of cardiomyopathy Encouraged a low-cho lesterol diet with regular cardiovascular exercise as tolerated. Continue treatment with Atorvastatin 40 mg. Will continue to monitor. Related to Hypertriglyceridemia In 10/2013, without r ecurrence. Continue Atorvastatin 20 mg and clopidogrel. Healthy diet, regular exercise, weight loss encouraged. Continue to monitor. Related to History of transient ischemic attack (TIA) Continue to wear kne e pads when kneeling. No major falls reported. Encouraged patient to take care upon ambulation and changing positions. Discussed with pt the importance of remaining active on a daily basis. Will continue to monitor. Related to Senile purpura Controlled. Continue current treatment plan of Ramipril 10 mg qd. Encouraged pt to measure BP after sitting for 5 min, repeat for 3 readings over span of 15 min. Encouraged low-sodium diet. Will continue to monitor. Related to Hypertensive kidney disease with stage 3b chronic kidney disease See plan above. Related to Tremo r This has been diagno sed by the Glomerular Filtration Rate (GFR). This is just an indication that the kidneys are not functioning at 100%, but is no reason for concern at this time. Make sure to drink plenty of water. We are monitoring this closely. Good control of all other medical conditions is important to keep this from worsening as well.Labs: Renal panel Related to Chronic kidney disease, stage 3b Per Dr. Wyatt - N eurologist this is not related to patients diabetes. Continue with Nortriptyline BID. Continue to follow up with Neuro as scheduled. Will continue to monitor. Related to Idiopathic neuropathy See plan above. 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 Continue Metformin 1000 mg BID; Lantus 55 units before breakfast; Insulin Aspart 18 units before breakfast, 16 units before lunch, and 18 units before dinner; and Jardiance 25mg. Continue Ramipril and Atorvastatin. Continue Nortriptyline for neuropathy. Continue with Carley Monitor to check sugars. Encouraged patient to avoid processed sugars and to maintain a healthy, balanced low-carb diet with regular exercise. Encouraged daily self-vigilant foot exams and annual eye exams. Continue to monitor. Pt saw neuro Dr. Wyatt about this before, who did a foot exam 08/31/2021 showing decreased sensation to the upper calves. Status: Able to self-manage condition. Goals: Your goal is to monitor your diabetes. Barriers: No barriers to goal achievement have been identified.Labs: A1c Related to Type 2 diabetes mellitus with stage 3 chronic kidney disease, with long-term current use of insulin, unspecified whether stage 3a or 3b CKD Medication management Dietary management e ducation, guidance, and counseling Related to Body mass index (BMI) 33.0-33.9, adult Uncontrolled, last A 1c elevated but improving at 9.2% on 06/20/21. Goal A1c is <8%, fasting 90-150 mg/dL , and bedtime 100-180 mg/dL per updated ADA guidelines for older adults with multiple coexisting conditions. Uploaded FSL2 in office. Time in range 16%, high 43%, very high 41%, low/very low 0%, average glucose 237 mg/dL. Improved from last CGM readings on 06/20/21 (time in range 9%, high 36%, very high 55%, low/very low 0%, average glucose 260 mg/dL). On max effective dose of metformin and Jardiance, switched from NovoLog 70/30 to Lantus and aspart at last visit on 06/22/2021. Due to trends of overall highs, and peaks after breakfast and dinner, will increase the Lantus by 10% and increase breakfast and dinner aspart, while keeping lunch dose the same. Will also recommend healthier dietary choices for these meals and give dietary education handouts to patient, as well as encouraging increasing exercise (goal 150 min/week of aerobic exercises). Continue working on sugars to improve neuropathy.CONTINUE:-Jardiance 25 m tab qAM-Metformin 1000 m tab twice dailyINCREASE:-insulin aspart to 18 units before breakfast and dinner, 16 units before lunch, plus correction scale (+1 unit for every 50 mg/dL over 150 mg/dL)-Lantus: 55 units qAMFoot Exam: monofilament- 0/10 L, 1/10 R, vibratory exam- sensations absent BILEye Exam: [facility] Maintenance:-UTD on all vaccines except -NEEDS SHINGRIXSabiha Zamora, PharmD Candidate [employer], Class of 2021/Margarita Mcnulty, Pharm.D. Related to Type 2 diabetes mellitus with diabetic polyneuropathy, with long-term current use of insulin Uncontrolled, A1c on 03/23/21 was elevated at 10.4%. Recommend goal of <8% per ADA recommendations in older adults with multiple coexisting conditions. Uploaded his FSL2 in the office. His 14 day avg glucose was 255. Time in range 12%, high 34%, very high 54%, and low/very low 0%. Currently on max effective dose of metformin and Jardiance and on 1.1 units/kg of insulin/day. He could potentially benefit from a GLP-1 agonist for weight loss and CV benefits. Discussed r/b or GLP-1s and pt is interested in starting one.--[facility] could [facility] through them. He will also see if they cover Ozempic or Trulicity. He will call back with what he finds out. --If unable to get GLP-1 then will work with pt to titrate insulin or consider changing to basal/bolus regimen--Sent new rx for FSL2 sensors to pharmacy--Continue working on healthy diet (limiting intake of high carb foods and avoiding refined sugars)--Continue exercise regimen as tolerated with goal of at least 150 min/week of aerobic exercises--Continue atorvastatin 40 mg daily which he is tolerating without myalgias (Clinical ASCVD)Health Maintenance:--Indicated for covid booster- pt [facility]--Due for Shingrix. All other vaccines UTD Related to Type 2 diabetes mellitus with diabetic polyneuropathy, with long-term current use of insulin Reviewed with pt syd t his chronic conditions put him at greater risk for COVID infection. Encouraged pt to get a COVID booster shot.f/u in 6 months Charting performed by Joe Shah acting as scribe for Itzel Altamirano. Alejandro, I reviewed the chart and agree with and approve of the documentation. Related to Immunization counseling Due to recent of his . Will monitor. Related to Grief In 10/2013, without r ecurrence. Continue Atorvastatin 20 mg and clopidogrel. Healthy diet, regular exercise, weight loss encouraged. Continue to monitor. Related to History of cardiomyopathy In 10/2013, without r ecurrence. Continue Atorvastatin 20 mg and clopidogrel. Healthy diet, regular exercise, weight loss encouraged. Continue to monitor. Related to History of transient ischemic attack (TIA) Stable. Continue cur rent treatment plan with hydrocodone as directed for muscle spasms. Will monitor. Related to Sciatica, unspecified laterality Symptomatic on shins . Continue to wear knee pads when kneeling. No major falls reported. Encouraged patient to take care upon ambulation and changing positions. Discussed with pt the importance of remaining active on a daily basis. Will continue to monitor. Related to Senile purpura BMI of 31.5 today. T ry to cut back on calories. Most people should eat between 6174-8220 calories to lose weight. Decrease your carbohydrate intake to less than 150g per day if possible and increase protein to help with hunger. Increase activity to 30min 4-5 days a week. Focus on drinking plenty of water daily and getting adequate sleep. If you need further help with weight loss please let me know. Will continue to monitor. Related to Obesity (BMI 30.0-34.9) Remains seizure-free since 2001- remains off medication. Continues to be followed by neurologist, Dr Wyatt, every 6 months. Continue to monitor. Related to Nonintractable epilepsy without status epilepticus, unspecified epilepsy type Encouraged a low-cho lesterol diet with regular cardiovascular exercise as tolerated. Continue treatment with Atorvastatin 40 mg. Will continue to monitor. Related to Hypertriglyceridemia This has been diagno sed by the Glomerular Filtration Rate (GFR). This is just an indication that the kidneys are not functioning at 100%, but is no reason for concern at this time. Make sure to drink plenty of water. We are monitoring this closely. Good control of all other medical conditions is important to keep this from worsening as well.Labs: Renal panel Related to Chronic kidney disease, stage 3b Controlled. Continue current treatment plan of Ramipril 10 mg qd. Encouraged pt to measure BP after sitting for 5 min, repeat for 3 readings over span of 15 min. Encouraged low-sodium diet. Will continue to monitor. Related to Hypertensive kidney disease with stage 3b chronic kidney disease Last A1c was 9.3% on 12/2020. Continue Metformin 1000 mg BID; Novolog Mix 70/30, 57 units before breakfast and dinner; and Jardiance 25mg. Continue Ramipril and Atorvastatin. Continue Nortriptyline for neuropathy Encouraged patient to avoid processed sugars and to maintain a healthy, balanced low-carb diet with regular exercise. Encouraged daily self-vigilant foot exams and annual eye exams. Continue to monitor. Monofilament exam completed on 06/09/20 - 0/10 ROZINA. Will need repeat foot exam next visit!Vibratory exam completed today with shoes and socks off: absent ROZINA. Pt saw neuro Dr. Wyatt about this before, who did a foot exam 12/08/20 showing decreased sensation to ankles.Status: Able to self-manage condition. Goals: Your goal is to monitor your diabetes. Barriers: No barriers to goal achievement have been identified.Labs: A1c Related to Type 2 diabetes mellitus with diabetic polyneuropathy, with long-term current use of insulin Dietary management e ducation, guidance, and counseling Related to Body mass index (BMI) 31.0-31.9, adult Medication management will check PSA today . Follow up feb 2021 or sooner if needed Related to Encounter for screening for malignant neoplasm of prostate with bilateral lower extremity heaviness that is worse in the AM and improves throughout the day, suspect related to neuropathy. Last A1c was 9.3% on 12/2020. Continue Metformin 1000 mg BID; Novolog Mix 70/30, 57 units before breakfast and dinner; and Jardiance 25mg. Continue Ramipril and Atorvastatin. Continue Nortriptyline for neuropathy Encouraged patient to avoid processed sugars and to maintain a healthy, balanced low-carb diet with regular exercise. Encouraged daily self-vigilant foot exams and annual eye exams. Continue to monitor. Check A1c, MCR.Monofilament exam completed 05/2020 with shoes and socks off - 0/10 ROZINA. Vibratory exam completed 05/2020 with shoes and socks off: absent ROZINA.will check NCV - order placed at [facility] Related to Type 2 diabetes mellitus with diabetic polyneuropathy, with long-term current use of insulin with complaints of d izziness at time. Cerumen removed from bilateral ears today and discussed this could be a cause for dizziness. encouraged pt to call with continued complaints. Related to Impacted cerumen, bilateral Medication management Dietary management e ducation, guidance, and counseling Related to Body mass index (BMI) 32.0-32.9, adult BMI of 32.5 today. E ncouraged healthy dietary choices and increased activity. Focus on drinking plenty of water daily and getting adequate sleep. Will continue to monitor.RHM: colonoscopy UTD, last in 05/2019. Recommended pt to get Shingrix at pharm.F/u in 6 months Charting performed by Filiberto Rodriguez, acting as scribe for Dr. Allen.Dr. Allen, DO: I reviewed the chart and agree with and approve of the documentation. Related to Obesity (BMI 30.0-34.9) Remains seizure-free since 2001- remains off medication Continues to be followed by neurologist, Dr Wyatt, every 6 months. Continue to monitor. Related to Epilepsy, unspecified, not intractable, without status epilepticus in 10/2013, without r ecurrence. Continue Atorvastatin 20 mg and clopidogrel. Healthy diet, regular exercise, weight loss encouraged. Continue to monitor. Related to History of transient ischemic attack (TIA) in 08/2010 hospitaliz ed with cardiomyopathy, with CHF, EF 25-30%, cardiac cath at that time negative for ischemia. Uncertain cause- no sign or symptom of CHF Echocardiogram in 08/2010, showed mild- moderate LV systolic dysfunction with EF 45-50%. Continues on Ramipril- maintain good BP control. Healthy diet, regular exercise, weight loss encouraged. Related to History of cardiomyopathy This has been diagno sed by the Glomerular Filtration Rate (GFR). This is just an indication that the kidneys are not functioning at 100%, but is no reason for concern at this time. Make sure to drink plenty of water. We are monitoring this closely. Good control of all other medical conditions is important to keep this from worsening as well. Related to Chronic kidney disease, stage 3a Encouraged a low-cho lesterol diet with regular cardiovascular exercise as tolerated. Increase Atorvastatin to 40 mg. Will continue to monitor. Check FLP, TSH. Related to Hypertriglyceridemia see plan above. 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 C ontinue current treatment plan of Ramipril 10 mg qd.. Encouraged pt to measure BP after sitting for 5 min, repeat for 3 readings over span of 15 min. Encouraged low-sodium diet. Will continue to monitor. Check CMP. Related to Hypertensive kidney disease with stage 3a chronic kidney disease Last A1c was 8.9% on 02/2020. Continue Metformin 1000 mg BID; Novolog Mix 70/30, 57 units before breakfast and dinner; and Jardiance 25mg. Continue Ramipril and Atorvastatin. Continue Nortriptyline for neuropathy Encouraged patient to avoid processed sugars and to maintain a healthy, balanced low-carb diet with regular exercise. Encouraged daily self-vigilant foot exams and annual eye exams. Continue to monitor. Check A1c, MCR. Monofilament exam completed today with shoes and socks off - 0/10 ROZINA. Vibratory exam completed today with shoes and socks off: absent ROZINA.Visible sores on top of right foot and side of left foot.Status: Able to self-manage condition. Goals: Your goal is to monitor your diabetes. Barriers: No barriers to goal achievement have been identified. Related to Type 2 diabetes mellitus with diabetic polyneuropathy, with long-term current use of insulin Controlled, patient had an acute gastritis hemorrhage diagnosed by GI on 12/2018. Patient is currently on a proton pump inhibitor. Denies s/sx of bleeding or heartburn. Since he has been on a PPI for over a year would recommend to stop the PPI and use an as needed H2RA instead. --Stop pantoprazole 40mg daily --Start famotidine 20mg daily PRN for heartburn --Report any s/sx of bleeding or heartburn if uncontrolled Related to Acute gastritis with hemorrhage, unspecified gastritis type Uncontrolled, yanna multani's BMI today was 32.5. --Encouraged healthy dietary choices and increased activity Immunizations: --Influenza 02/2020 (UTD)--Pneumococcal vaccine (UTD)--Shingrix (Rx given today and recommend to receive at local pharmacy)Health Maintenance: --Colonoscopy 05/2019 was normal recommend repeating in 3 years (UTD)Note generated by: Pharm. ArianaD. PGY2 Community Relations Director Defence Intelligence Analyst Related to Obesity (BMI 30.0-34.9) Stable, diagnosed by neurology on 10/2013. Last CBC on 11/2019 was wnl. Currently patient is on a P2Y12 antagonist and moderate intensity statin. Patient is appropriately on antiplatelet therapy for TIA. He would be indicated for a high intensity stating given he had a clinical ASCVD with TIA per the ACC/AHA guidelines. --Increased Atorvastatin from 20mg to 40mg daily--Continue clopidogrel 75mg daily--Report any s/sx of bleeding Related to History of transient ischemic attack (TIA) Stable on low dose o pioid-analgesic and tricyclic antidepressant. Patient denies having constipation related to opioid use since he rarely uses the low dose opioid-analgesic. --Continue Hydrocodone/APAP 10-325mg 1 tablet q6h PRN pain and nortriptyline 25mg BID--Continue Miralax 17g 1 packet daily PRN for constipation --Continue to F/U with neurology and orthopedic surgery as scheduled --Continue to monitor and notify if s/sx worsen Related to Sciatica, unspecified laterality Controlled on no med ication therapy. Patient reports remaining seizure free since 2001. Electrolytes have been wnl. --CMP ordered today--Report any seizure like activity if it occurs --Continue to F/U with neurology as scheduled Related to Epilepsy, unspecified, not intractable, without status epilepticus Uncontrolled, last L DL was 52 and TG 611 on 11/2019. Patient is on a moderate intensity statin and would be indicated for a high intensity stating given he had a clinical ASCVD with TIA per the ACC/AHA guidelines. Given that he had elevated TG omega-3 fatty acids can be beneficial in addition to a statin to lower TG levels. --Lipid panel ordered today--Increased Atorvastatin from 20mg to 40mg daily--Continue Vascepa 1g 2 capsules BID (samples provided today)--Stop taking Krill Oil OTC daily while on Vascepa --Continue to monitor for muscle pain/weakness Related to Hypertriglyceridemia Controlled, patient is meeting goal BP <140/90 mmHg per the JNC-8 guidelines for adults with diabetes or CKD. Patient is on FELIPA-I and tolerating it without s/sx of cough or hypotension. Electrolytes have been wnl. Patient's GFR was 57 on 03/2020. Last microalbumin/creatine ratio was 80 on 11/2019. --CMP and microalbumin/creatine ratio ordered today--Continue Ramipril 10mg daily --Monitor for s/sx of hypotension and falls --Continue optimizing control of diabetes and HTN Related to Hypertensive kidney disease with stage 3a chronic kidney disease Uncontrolled, hemogl obin A1c was 8.9% on 02/2020 which is above goal of <8% given age and multiple co-existing comorbidities (hypertension, stroke, and stage 3 CKD). Patient is on treatment with optimized biguanide, SGLT2 inhibitor and Basal/Bolus combination insulin. Opthalmology exam on 05/2017 showed no diabetic retinopathy or macular edema. Patient reports having a recent eye exam in 2019 so will request results be sent to the office. Monofilament foot exam performed on 06/09/20 was abnormal: 0/10 right and left foot. Vibratory exam was abnormal with sensations absent in both feet. Patient saw neurology for diabetic neuropathy on 03/2020 and is on a tricyclic antidepressant for the nerve pain. --A1c and microalbumin/creatine ratio ordered today--Continue Metformin 1000mg 1 tablet BID, Jardiance 25mg qAM, and NovoLog 70/30 57 units SubQ before breakfast and dinner. --Continue Nortriptyline 25mg BID for neuropathy --Continue to F/U with neurology as scheduled --Counseled on importance of diabetic diet and exercise to help manage diabetes--Encouraged to continue to check SMBG at least twice a day (fasting and 2-h post-prandial)--Continue daily self-foot checks--F/U in 1 week with SMBG Status: Able to self-manage condition. Goals: Your goal is to monitor your diabetes. Barriers: No barriers to goal achievement have been identified. Related to Type 2 diabetes mellitus with diabetic polyneuropathy, with long-term current use of insulin Continue hydrocodone for episodic spasms. Will monitor. Related to Sciatica, unspecified laterality Medication management Symptomatic ROZINA - Se e pictures in chart. Begin treatment with cephalexin 500mg as directed. Referral given to f/u with Dr. Calloway, podiatry for further evaluation. Assessment and plan reviewed with Dr. Allen and he concurs. Will continue to monitor.Labs- BMP Related to Cellulitis of lower extremity, unspecified laterality BMI of 32.0 today. E ncouraged healthy dietary choices and increased activity. Focus on drinking plenty of water daily and getting adequate sleep. Monitor. F/U in 06/09/2020 or sooner if neededCharting performed by Ernesto Marino, acting as scribe for Jose Dias.Jose Dias, VIRI: I reviewed the chart and agree with and approve of the documentation. Related to Obesity (BMI 30.0-34.9) Last A1c of 8.9% on 02/2020. Continue current treatment with Metformin 1,000mg and Novolog as directed. Continue with daily foot exams. Notify for hypoglycemic symptoms. Will monitor. Continue Nortriptyline 25 mg BID daily. Stable neuropathy. Continue current treatment with nortriptyline as directed. Encouraged self vigilant foot exams. Notify for changes in feet. Will monitor. Related to Type 2 diabetes mellitus with diabetic polyneuropathy, with long-term current use of insulin Dietary management e ducation, guidance, and counseling Related to Body mass index (BMI) 32.0-32.9, adult Medication management Influenza vaccine ad ministered today.Return in 3 months for follow up, or sooner prn. Related to Need for vaccination - in 08/2010, uncerta in cause - no sign or symptom of CHFHe was hospitalized in 08/2010 with cardiomyopathy, with CHF, EF 25-30%, cardiac cath then negative for ischemia. Echocardiogram in 08/2010, showed mild- moderate LV systolic function with EF 45-50%. Though not discussed during office visit, will call and advise 2 D doppler echocardiogram for follow up. Continues on Ramipril- maintain good BP control. Healthy diet, regular exercise, weight loss encouraged. Related to History of cardiomyopathy - remains seizure-fr ee since 2001 - remains off medicationContinues to be followed by neurologist, Dr Wyatt, every 6 months. Continue to monitor. Related to Epilepsy, unspecified, not intractable, without status epilepticus - with BMI 31.42Heal thy diet, as Mediterranean, regular exercise, weight loss encouraged. Continue to monitor. Related to Obesity (BMI 30.0-34.9) - in 10/2013, without recurrenceContinue Atorvastatin 20 mg. Begin Vascepa, as stated above. Healthy diet, regular exercise, weight loss encouraged.Continue to monitor. Related to History of transient ischemic attack (TIA) - history high trigl ycerides ( 611 in 11/2019), with low HDL- Continue Atorvastatin 20 mg. Begin Vascepa 2 capsules BID - samples given- check regarding insurance coverage. Healthy diet, as Mediterranean, regular exercise, weight loss encouraged. Check FLP in 3 months. Related to Hypertriglyceridemia - stableContinue Percy ipril 10 mg qd.Healthy diet, regular exercise, weight loss encouraged. Continue to monitor. Related to Chronic kidney disease, stage 3a - controlledContinue Ramipril 10 mg qd.Healthy diet, regular exercise, weight loss encouraged. Continue to monitor. Related to Hypertensive kidney disease with stage 3a chronic kidney disease - on Novolog Mix ins ulinContinues on Novolog Mix 70/30 57 units before breakfast and dinner- He has been receiving 30 ml of insulin each month, therefore running out early - will change quantity dispensed to 36 ml/ month. Urged to not run out insulin.Stressed importance of checking home glucose readings regularly, at least twice daily. Related to residential (current) use of insulin - with Hgba1c 8.9 on 03/02/20 - neuropathy improvedContinue Metformin 1000 mg BID; Novolog Mix 70/30, 57 units before breakfast and dinner; and Jardiance, started in 11/2019, with dosage increased to 25 mg on 03/02/20. Continue Ramipril and Atorvastatin - not on ASA since he is on Clopidogrel. Continue Nortriptyline for neuropathy; check feet daily. Check home blood glucose regularly, daily. Healthy diet, regular exercise, weight loss encouraged. Continue regular eye exams, recently completed per patient- request that notes be sent to Dr Allen.Influenza vaccine administered. Continue to monitor - due to repeat Hgba1c in 05/2020. Related to Type 2 diabetes mellitus with diabetic polyneuropathy, with long-term current use of insulin Urinary Incontinence Healthy diet, regular exercise. Fall Risk Prevention Stable. Pt not curre ntly on medication. Reports last seizure in 2001. Notify if a seizure occurs. Will monitor. F/u with neurologist as routine. Related to Epilepsy, unspecified, not intractable, without status epilepticus BMI of 31.8 today. E ncouraged healthy dietary choices and increased activity. Focus on drinking plenty of water daily and getting adequate sleep. Will continue to monitor.Follow up in 6 months. Charting performed by Filiberto Rodriguez acting as scribe for Itzel Altamirano. CORETTA Allen reviewed the chart and agree with and approve of the documentation. Related to Obesity (BMI 30-39.9) Stable Continue curr ent treatment -- Hydrocodone-APAP 10mg-325 mg 1 tab every 4-6 hours as needed. Encourage to complete stretches and lgbdr-[id number] exercises. Will continue to monitor. Notify for worsening symptoms. Related to Sciatica, unspecified laterality TIA per Dr. Hoskins. Continue Clopidigerol. 75 mg daily. Related to Hx of TIA (transient ischemic attack) and stroke Last A1c of 6.5% on 02/2019. Continue current treatment with Metformin 1,000mg and Novolog as directed. Notify for hypoglycemic symptoms. Will monitor. Check A1c and MCR.Monofilament exam performed in today 12/02/2019 abnormal: 01/10 right foot. 0/10 left foot.Continue Nortriptyline 25 mg BID daily. Stable neuropathy. Continue current treatment with nortriptyline as directed. Encouraged self vigilant foot exams. Notify for changes in feet. Will monitor. Related to Type 2 diabetes mellitus with polyneuropathy Encouraged low cele sterol diet and regular cholesterol diet. Continue current treatment with Atorvastatin 20mg and fenofibrate 145 mg as directed. Notify for side effects of myalgias. Will monitor. Check FLP. Related to Other hyperlipidemia Controlled. Continue current treatment with ramipril 10mg as directed. Notify for symptoms of CP, SOB, or edema. Will monitor. Check TSH, CBC, CMP. Related to Benign hypertension Dietary management e ducation, guidance, and counseling Related to Body mass index (BMI) 31.0-31.9, adult Medication management Stable Continue curr ent treatment -- Hydrocodone-APAP 10mg-325 mg 1 tab every 4-6 hours as needed and Nortriptyline 25 mg 1 tab twice daily. Encourage to complete stretches and dtnei-xs-jkaben exercises. Will continue to monitor. Notify for worsening symptoms. Related to Sciatica, unspecified laterality Continue iron supple ments. Informed pt that this could be making his stools darker. Will monitor. Related to Iron deficiency anemia, unspecified iron deficiency anemia type Improving. Continue pantoprazole 40mg daily. Avoid trigger foods. Will continue to monitor. Notify for persisting/worsening symptoms. Related to Acute gastritis with hemorrhage, unspecified gastritis type TIA per Dr. Hoskins. Continue Clopidigerol. 75 mg daily. Related to Hx of TIA (transient ischemic attack) and stroke BMI of 31.8 today. E ncouraged healthy dietary choices and increased activity. Focus on drinking plenty of water daily and getting adequate sleep. Will continue to monitor.Follow up in 6 months. Charting performed by Joao Hill acting as scribe for Itzel Altamirano. CORETTA Allen reviewed the chart and agree with and approve of the documentation. Related to Obesity (BMI 30-39.9) Stable. Pt not curre ntly on medication. Reports last seizure in 2001. Notify if a seizure occurs. Will monitor. Related to Epilepsy, unspecified, not intractable, without status epilepticus Controlled. Continue current treatment with ramipril 10mg as directed. Notify for symptoms of CP, SOB, or edema. Will monitor. Check CBC, CMP, TSH. Related to Benign hypertension Encouraged low cele sterol diet and regular cholesterol diet. Continue current treatment with Atorvastatin 20mg and fenofibrate 145 mg as directed. Notify for side effects of myalgias. Will monitor. Check lipid panel today. Related to Other hyperlipidemia Last A1c of 7.1% on 04/2018. Continue current treatment with Metformin 1,000mg and Novolog. Notify for hypoglycemic symptoms. Will monitor. Check A1c and MC ratio.Monofilament exam performed in today abnormal: 0/10 on left; 1/10 on the right. Continue Nortriptyline 25 mg BID daily. Stable neuropathy. Continue current treatment with nortriptyline as directed. Encouraged self vigilant foot exams. Notify for changes in feet. Will monitor. Related to Type 2 diabetes mellitus with polyneuropathy Dietary management e ducation, guidance, and counseling Related to Body mass index (BMI) 31.0-31.9, adult Medication management - s/p hospitalizatio n - likely 2ary to upper gi bleed, 2ary to NSAID'sCheck CBC today- plan to start ferrous sulfate if still anemic.Continue Pantoprazole 40 mg BID presently. Remain off all NSAID's - take Acetaminophen instead for pain in the future. He's scheduled for colonoscopy with Dr Tidwell, on 02/05/19; since he was advised at time of hospital discharge to schedule the colonoscopy for 1 month, advise calling to reschedule toward the end of January. After labs return, I'll call Dr Tidwell's office to inquire whether EGD should also be performed. Related to Iron deficiency anemia, unspecified iron deficiency anemia type - f/u hospitalizatio n, for upper abdominal pain, resolved - suspect 2ary to NSAID induced gastritis or ulcer Continue Pantoprazole 40 mg BID for now. Remain off NSAID's - take Acetaminophen in the future for pain instead. Call to schedule colonoscopy with Dr Tidwell, as advised. I'll call his office to inquire if EGD would also be advised.Continue to monitor- call or return if abdominal pain reoccurs. Related to History of abdominal pain - Stable, with Hgba1 c 7.2, on 01/21/19 Continues on Metformin 1000 mg BID and Novolog Mix 70-30, 57 units with breakfast and supper. Continues on Nortriptyline at hs for neuropathy. Continue healthy diet, regular exercise. Check BMP today. Continue to monitor. Related to Type 2 diabetes mellitus with polyneuropathy Dietary management e ducation, guidance, and counseling Related to Body mass index (BMI) 31.0-31.9, adult Medication management Constant, diffuse ab dominal pain onset 3 days ago with associated nausea, headache, and 2 episodes of emesis. Patient to report to the ED for further evaluation and treatment. The plan was discussed and agreed upon by Dr. Allen. Related to Generalized abdominal pain Exacerbated by fall in 09/2018. Continue current treatment -- Hydrocodone-APAP 10mg-325 mg 1 tab every 4-6 hours as needed and Nortriptyline 25 mg 1 tab twice daily. Encourage to complete stretches and dnurr-kd-[id number] exercises. Will continue to monitor. Notify for worsening symptoms.Follow up as scheduled 03/11/19 or sooner as needed. Charting performed by Elliott Candelario, acting as scribe for Jose Dias. VIRI Ayers: I reviewed the chart and agree with and approve of the documentation. Related to Sciatica, unspecified laterality Last A1c of 7.1% on 05/07/18. Continue current treatment -- Metformin 1,000mg 1 tab twice daily and Novolog 57 units twice daily. Notify for hypoglycemic symptoms. Will monitor. Neuropathy: Encourage vigilant self-foot exams and to wear shoes at all times. Stable neuropathy. Continue current treatment with nortriptyline as directed. Encouraged self vigilant foot exams. Notify for changes in feet. Will monitor. Related to Type 2 diabetes mellitus with polyneuropathy Dietary management e ducation, guidance, and counseling Related to Body mass index (BMI) 31.0-31.9, adult Medication management Dr. Tidwell's office c ontacted to schedule Related to Encounter for screening colonoscopy ladder fall 09/2018. Healing appropriately. See above. Related to Status post fall per ER labs. Seen by Dr. Corbin in 2017, mild. Check CBC today. F/u as scheduled in February. Charting performed by Kayla Redman, acting as scribe for Itzel Allen.Itzel Allen, DO: I reviewed the chart and agree with and approve of the documentation. Related to Thrombocytopenia secondary to fall of f ladder, with ER visit 10/16/18. Discussed with patient that healing can take 2 months. May use hydrocodone as needed, he will call when refill needed. Encouraged to remain active. Related to Traumatic hematoma of right thigh, subsequent encounter Dietary management e ducation, guidance, and counseling Related to Body mass index (BMI) 32.0-32.9, adult Medication management Assessments Type Assessment Date No Information Patient Care Teams Name Effective Dates (start - stop) Status Members No Information
[2025-02-02 15:23] VITALS: BMI 31.2
--- OUTSIDE RECORDS SUMMARY | 2025-02-04 01:37 | XMS_ITS | Clinical Summary ---
Author Organization [facility] Building [address] Address [address] [place] [address] Care Team Providers Care Film Technician Name Role Phone Redd De Anda MD Primary Care Provider [phone] Allergies Active Allergy Reactions Criticality Noted Date Comments Codeine Other (See comments) Reaction: HYPERACTIVITY, , Empagliflozin Other (See comments) Low 05/14/2022 Other reaction(s): RN LONG TERM CARE Dysfunction Euglycemic dka Euglycemic dka Euglycemic dka Other reaction(s): RN LONG TERM CARE Dysfunction Euglycemic dka Medications insulin aspart (NovoLOG) 100 unit/mL (3 mL) pen for injection Inject 18 units by subcutaneous route before breakfast, 16 units before lunch, and 18 units before dinner plus correction [address] (PROTONIX) 40 mg EC tablet Take 1 tablet (40 mg total) by mouth daily 2 Active insulin glargine (LANTUS, BASAGLAR, SEMGLEE) 100 unit/mL (3 mL) pen for injection Inject 50 Units under the skin daily Active lisinopriL (PRINIVIL,ZESTR IL) 20 mg tablet Take 1 tablet (20 mg total) by mouth daily 2 Active FreeStyle [place] 2 Sensor kit Apply 1 sensor to the back of the arm every 14 days as directed 2 Active atorvastatin (LIPITOR) 40 mg tablet Take 1 tablet (40 mg total) by mouth daily 4 Active levETIRAcetam (KEPPRA) 1,000 mg tablet TAKE 1 TABLET (1000 MG) IN THE AM, 1 1/2 (1500 MG) TABLETS IN THE PM 225 tablet 1 5 Active pregabalin (LYRICA) 150 mg capsule TAKE 1 CAPSULE IN THE MORNING AND 6 PM ALONG WITH A 300 MG CAPSULE AT BEDTIME. 180 capsule 1 5 Active zonisamide (ZONEGRAN) 100 mg capsule TAKE 2 CAPSULES BY MOUTH AT BEDTIME 180 capsule 5 Active pregabalin (LYRICA) 300 mg capsule TAKE 1 CAPSULE BY MOUTH EVERYDAY AT BEDTIME 90 capsule 1 5 Active lacosamide (VIMPAT) 100 mg tablet TAKE 1 TABLET BY MOUTH EVERY DAY IN THE MORNING 90 tablet 3 5 Active Active Problems Problem Noted Date Diagnosed [...] 12/27/2022 Assessment & Plan (07/23/2024 10:57 AM SALESPERSON FLYING SQUAD): The patient's neuropathy symptoms remained stable. Continue [...] 08/29/2017 Assessment & Plan (07/23/2024 10:56 AM SALESPERSON FLYING SQUAD): Essential tremor symptoms remained stable. Continue zonisamide 200 mg at bedtime. Transient ischemic attack (TIA) 08/29/2017 Abdominal pain, LLQ (left lower quadrant) 2013 Splenomegaly 04/04/2014 DM (diabetes mellitus) type II controlled, neurological manifestation 10/22/2013 Need for prophylactic vaccin ation and inoculation against influenza 03/06/2013 Seizure 02/12/2013 Overview (08/30/2016): Seizure Assessment & Plan (07/23/2024 10:52 AM SALESPERSON FLYING SQUAD): The patient remains seizure-free on his current medications. Continue lacosamide 100 mg Continue Keppra a 1000 mg in the morning and 1500 mg in the p.m.. He is also on Lyrica and zonisamide which can also help treat seizures. Assessment & Plan (04/22/2024 8:17 AM SALESPERSON FLYING SQUAD): The patient has on multiple seizure medications [...] essential hypertension 08/07/2006 Primary localized osteoarthrosis, hand 08/28/200 6 Cataract 09/08/2004 Special screening for malignant neoplasm of pros manzo 03/02/2004 Diabetes mellitus 02/04/2003 Esophageal reflux 03/14/2002 Benign neoplasm of cerebral meninges 07/17/2000 Gout 07/12/2000 Surgical History Surgery Date Site/Laterality Comments KNEE ARTHROPLASTY Knee replacement OTHER SURGICAL HISTORY left temporal meningioma: surgical removal Medical History Medical History Date Comments Hx Other Medical 1997 left temporal m eningioma; Outcome: successful Intracranial [...] on file Legal Sex Male 3:24 PM SALESPERSON FLYING SQUAD Gender Identity Not on file Sexual Orientation Not on file Obstetrics History Last Filed Vital Signs Vital Sign Reading Time Taken Comments Blood Pressure 155/79 07/23/2024 10:19 AM SALESPERSON FLYING SQUAD Pulse 85 10/29/2023 2:38 PM CDT Temperature 36.4 C (97.5 F) 10/09/2023 9:45 AM CDT Respiratory Rate 20 10/29/2023 2:38 PM CDT Oxygen Saturation 97% 10/29/2023 2:38 PM CDT Inhaled Oxygen Concentration - - Weight 101.6 kg (224 lb) 07/23/2024 10:19 AM SALESPERSON FLYING SQUAD Height 175.3 cm (5' 9) 07/23/2024 10:19 AM SALESPERSON FLYING SQUAD Body Mass Index 33.08 07/23/2024 10:19 AM SALESPERSON FLYING SQUAD Plan of Treatment Health Maintenance Due Date [...] PPO HUMANA CHOICE MEDICARE PPO Care Teams Film Technician Relationship Specialty Start Date End Date Redd De Anda MD PCP - General Internal Medicine 06/16/22
--- OUTSIDE RECORDS SUMMARY | 2025-02-04 01:37 | XMS_ITS | Encounter Summary ---
Author Organization [facility] Address [address] [place] [address] Care Team Providers Care Registered Nurse Step Down Name Role Phone Eliceo Templeton RN Unavailable [phone] Casie Pruett RN Unavailable Unava ilable Redd De Anda MD Primary Care Provider Reason for Visit * Reason Comments Refill Request Encounter Details Date Type Department Care Team (Late st Contact Info) Description 09/21/2022 Refill [facility] - Orthopedics [address] [place] [address] Abhijeet Gallego MD [address] [facility] [place] [address] Refill Request Social History Tobacco [...] PM CDT Legal 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
--- OUTSIDE RECORDS SUMMARY | 2025-02-04 01:38 | XMS_ITS | Clinical Summary ---
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ology - [place] [address] [place] [address] Rey Reyna MD [address] [place] [address] Health Maintenance Due Date Last [...] 6 MONTHS 04/30/2023 10/29/2022, INFLUENZA VACCINE (#1) 2024 , 03/12/2023, 03/02/2022, Additional history exists COVID-19 Vaccine (2023-2 5 season) 2025 04/01/2024, 03/12/2023, 03/16/2022, Additional history exists DIABETES ANNUAL RETINAL EXAM 02/28/2025 02/29/2024, 02/03/2022 DTAP/TDAP/TD VACCINES (4 - T d or Tdap) 03/17/2032 03/17/2022, 08/01/2018, 01/03/2012 PNEUMOCOCCAL VACCINE 50+ YEARS Completed 1 06/16/2022, 07/29/2019, 02/25/2017, Additional history exists Medical Devices Implanted Type Area Paintings Restorer Device Identifier Shelf Expiration Date Model / Serial / Lot Knee Knee Insurance [employer] PPO [facility] Advance Directives For more information, please contact: [phone] * Full Code (Latest Code Status on File) Date Activated Date Inactivated Comments 10/16/2018 12:47 AM 10/17/2018 4:54 PM * Full Code Date Activated Date Inactivated Comments 01/27/2014 8:03 AM 01/27/2014 12:09 PM * Full Code Date Activated Date Inactivated Comments 01/27/2014 7:45 AM 01/27/2014 8:03 AM Care Teams Rater Associate Relationship Specialty Start Date End Date Redd De Anda MD [address] [place] [address] PCP - General Internal Medicine 03/27/23
--- OUTSIDE RECORDS SUMMARY | 2025-02-04 01:39 | XMS_ITS | Clinical Summary ---
Author Organization [facility] Address [address] [place] [address] Care Team Providers Care Guest History Clerk Name Role Phone Eliceo Templeton RN Unavailable [phone] Casie Pruett RN Unavailable Unava ilable Redd De Anda MD Primary Care Provider [phone] Source Comments [facility],non-owned Affiliates and Associated Physician Practices is amultiple site organization consisting of ambulatory clinics and hospital sitesin [place], [place], [place] and [place]. This disclosure is being madepursuant to the Care Everywhere program and may not contain all information available regarding this patient. Last updated 18.[facility] Allergies Active Allergy Reactions Criticality Noted Date Comments Codeine 02/21/2010 Gets really hyper Empagliflozin TELE RN Dysfunction 05/14/2022 Euglycemic dka Medications * Be [...] and heating? Not hard at all 10/28/2022 [facility] of Occupat ional Health - Occupational Stress [...] place to sleep or slept in a usp (including now)? 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 Not on file Not on file Not [...] CREATININE 01/09/20242022, 11/08/2022, 11/07/2022, Additional history exists DIABETES RETINOPATHY SCREENING 02/04/2024 02/03/2022, 09/01/2021 DEPRESSION SCREENING 05/28/2024 DIABETES - URINE PROTEIN SCREENING 05/28/2024 05/17/2022, 09/06/2021, 09/06/2021, Additional history exists MEDICARE AWV CALENDAR YEAR 2024 COVID-19 VACCINE ( season) 2025 03/16/2022, 04/25/2021, 08/04/2020, Additional history exists INFLUENZA VACCINE (#1) 2025 , 02/25/2022, 03/28/2021, [...] this topic Medical Devices Implanted Type Area Tool And Die Maker Apprentice Device Identifier Shelf Expiration Date Model / Serial / Lot Cmnt Bone Co Hv 40gm Implanted:Qty: 2 on 09/27/2016 by Enmanuel Cerrato MD at [facility] [employer] 05/27/2018 [id number] / / [id number] Cruciate Retaining Legion Nonporous Femoral Component Implanted:Qty: 1 on 09/27/2016 by Enmanuel Cerrato MD at [facility] Right: Knee [employer] 05/09/2025 [id number] / / [id number] Description:Note: explanted 1 x existing screw. Disposition: trash. Onelia 11 Right Non Porous Tibial Baseplate Implanted:Qty: 1 on 09/27/2016 by Enmanuel Cerrato MD at [facility] Right: Knee [employer] 03/11/2026 [id number] / / [id number] Resurfacing Round Patellar Component Implanted:Qty: 1 on 09/27/2016 by Enmanuel Cerrato MD at [facility] Right: Knee [employer] 01/21/2026 [id number] / / [id number] High Flexion Articular Insert Implanted:Qty: 1 on 09/27/2016 by Enmanuel Cerrato MD at [facility] Right: Knee [employer] 07/02/2025 [id number] / / [id number] George Shai Tib Uncem Fem Implanted:Qty: 1 on 09/27/2016 by Enmanuel Cerrato MD at [facility] BILL ONLY SHAI TIB UNCEM FEM SNORTHO / / Procedures Procedure Name Priority Date/Time Associated Diagnosis Comments COMPREHENSIVE METABOLIC PANEL STAT 01/08/2023 12:02 PM CDT HEPATITIS C AB SCREEN RFLX NAAT QUANT AM Draw 11/04/2022 4:26 AM CDT HEMOGLOBIN A1C Routine 10/29/2022 5:42 AM CDT MICROALB/CREAT RATIO URINE RANDOM PANEL Routine 05/17/2022 9:16 PM CUSTOMER SOLUTIONS COORDINATOR from Last 3 Months or Most Recently Relevant to Health Maintenance Results * (ABNORMAL) COMPREHENSIVE METABOLIC PANEL (01/08/2023 12:02 PM CDT) BUN 15 7 - 26 mg/dL 01/08/2023 12:38 PM [facility] Creatinine 0.72 0.71 - 1.16 mg/dL 01/08/2023 12:38 PM [facility] Sodium 140 136 - 145 mmol/L 01/08/2023 12:38 PM [facility] Potassium 4.1 3.5 - 4.5 mmol/L 01/08/2023 12:38 PM [facility] Chloride 110(H) 98 - 107 mmol/L 01/08/2023 12:38 PM [facility] CO2 21(L) 22 - 29 mmol/L 01/08/2023 12:38 PM [facility] Glucose 171(H) 70 - 115 mg/dL 01/08/2023 12:38 PM [facility] Calcium 9.3 8.4 - 10.2 mg/dL 01/08/2023 12:38 PM [facility] Protein Total 7.3 6.0 - 8.3 g/dL 01/08/2023 12:38 PM [facility] Albumin 4.0 3.4 - 5.0 g/dL 01/08/2023 12:38 PM [facility] Bilirubin Total 0.3 0.2 - 1.2 mg/dL 01/08/2023 12:38 PM [facility] Alkaline Phosphatase 85 40 - 150 U/L 01/08/2023 12:38 PM [facility] ALT 15 5 - 55 U/L 01/08/2023 12:38 PM [facility] AST 21 5 - 34 U/L 01/08/2023 12:38 PM [facility] Anion Gap 13 8 - 18 01/08/2023 12:38 PM [facility] BUN/Creatinine Ratio 21 7 - 23 01/08/2023 12:38 PM [facility] Osmolality Calculated 295 270 - 300 mOsm/kg 01/08/2023 12:38 PM [facility] Albumin/Globulin Ratio 1.2 1.1 - 2.3 01/08/2023 12:38 PM [facility] eGFR by CKD-EPI >90 >=90 mL/min/1.7 3 m2 01/08/2023 12:38 PM [facility] Blood BLOOD SPECIMEN / Unknown Venipuncture / Unknown 01/08/2023 12:02 PM CDT 01/08/2023 12:13 PM [facility] us Joao PALOMINO-Venkatesh LAB - CHEMISTRY OR DERABLES Final Result [facility] [address] [place] [id number], [facility] [phone] * HEPATITIS C AB SCREEN RFLX NAAT QUANT (11/04/2022 4:26 AM [facility]) Hepatitis C Antibody Non-react kinjal Non-reac tive 11/04/2022 6:27 AM [facility] Comment:Hepatitis C Antibody screen indicates no [...] 11/04/2022 5:44 AM CDT us Daryl Nicolas APRN-STATIONARY ENGINEER SUPERVISOR LAB - CHEMISTRY ORDERABL ES Final Result Performing Organization Address [facility]/ZIP Co de Phone Number [facility] [address] [place] [id number], [facility] [phone] * (ABNORMAL) HEMOGLOBIN A1C (10/29/2022 5:42 AM CDT) Hemoglobin A1c 6.9(H) <=5.6 % 10/30/2022 1:24 PM CDT [facility] Estimated Average Glucose 151 mg/dL 10/30/2022 1:24 PM CDT [facility] Comment: HbA1c Interpretation: Normal : < 5.7% Pre-diabetes: 5.7-6.4% Diabetes: Equal to or greater than 6.5% Test results diagnostic of diabetes should be repeated for confirmation. Treatment target values recommended by ADA and other clinical organizations should be used to evaluate metabolic control in patients. Reference: [place] Diabetes Association, Standards of Care in Diabetes [...] CHEMISTRY ORDERABLES Final Result Performing Organization Address City/[facility]/ZIP Co de Phone Number [facility] [address] [place] [address], [place] [phone] * (ABNORMAL) MICROALB/CREAT RATIO URINE RANDOM PANEL (05/17/2022 9:16 PM CUSTOMER SOLUTIONS COORDINATOR) Creatinine Urine 83.67 mg/dL 05/17/20 9:55 PM CUSTOMER SOLUTIONS COORDINATOR [facility] Microalbumin Urine 13.8 mg/dL 05/17/2022 9:55 PM CUSTOMER SOLUTIONS COORDINATOR [facility] Microalbumin/Crea tinine Ratio 164(H) <30 mg/g 05/17/2022 9:55 PM CUSTOMER SOLUTIONS COORDINATOR [facility] Urine URINE SPECIMEN OBTAINED BY CLEAN CATCH PROCEDURE / Unknown Collection / Unknown 05/17/2022 9:16 PM CUSTOMER SOLUTIONS COORDINATOR 05/17/2022 9:35 PM CUSTOMER SOLUTIONS COORDINATOR us Trinidad Mckenzie MD LAB - URINE CHEMISTRY ORDERABLES Final Result [facility] [address] [place] [address] from Last 3 Months or Most Recently Relevant to Health Maintenance Insurance [employer] MEDICARE ADV HMO & PPO SELF PAY NO INSURANCE Member Subscriber Plan / Payer (Ef fective for All Dates) Name:Dane Carter Member ID:Not on file Relation to Subscriber:Not on file Name:DANE CARTER Subscriber ID:Not on file (Home) Address: [address] [place] [id number] Payer ID:Not on file Group ID:Not on file Type:Self Pay Address: [place], [place] Advance Directives * Full Code (Latest Code [...] 4:13 PM 09/03/2014 6:45 PM Care Teams Guest History Clerk Relationship Specialty Start Date End Date Redd De Anda MD [address] [place] [address] PCP - General Internal Medicine 05/11/22 Eliceo Templeton RN Fur Puller 10/22/13 Gideon-Casie Celeste RN Registered Nurse 09/28/16
--- NOTE | 2025-02-04 11:04 | P.PNAN_ITS ---
Anes - Initial Pre Proc Eval Procedure: Operation Date: 02/04/25 12:30 Proposed Procedures p EGD & Diagnostic Colonoscopy - Puneet Tesfaye DO Date/Time: 02/04/25 11:04 Surgeon: Puneet Tesfaye DO Pre Op Diagnosis: Metastatic adenocarcinoma of unknown origin Patient Data Age: 74 Gender: M Height: 1.75 m Weight: 96 kg Allergies Allergy/AdvReac Type Severity Reaction Status Date / Time codeine AdvReac Unknown Hyperactive Verified 02/04/25 11:05 empagliflozin (From AdvReac Unknown Other Verified 02/04/25 11:05 Jardiance) Home Medications ?Medication ?Instructions ?Recorded ?Confirmed ?Type atorvastatin 40 mg tablet 40 mg PO DAILY 08/03/2201/26 History multivitamin with minerals-folic 1 tablet PO DAILY 02/1702/04/25 History acid 0.4 mg tablet pantoprazole 40 mg tablet,delayed 40 mg PO DAILY 08/0302/04/25 History release zonisamide 100 mg capsule 200 mg PO DAILY 09/21/2203/21 History lacosamide 100 mg tablet 100 mg PO DAILY 01/17/2303/21 History levetiracetam 500 mg tablet 1,000 mg (2 x 500 mg) PO Q AM #30 01/19/23 02/04/25 Rx (Keppra) tabs pregabalin 50 mg capsule (Lyrica) 300 mg (6 x 50 mg) [facility] HS #15 01/19/23 02/04/25 Rx caps pregabalin 150 mg capsule 150 mg PO QAM 09/12/2302/04 History levetiracetam 500 mg tablet 1,000 mg PO HS 11/24/24 History (Keppra) fluocinonide 0.05 % topical 1 applic topical PRN 01/2102/02/25 History ointment insulin aspart U-100 100 unit/mL 1 - 15 unit subcut TI DWMEAL 01/21/25 02/04/25 History (3 mL) subcutaneous pen (Novolog FlexPen U-100 Insulin aspart) insulin glargine 100 unit/mL (3 40 unit subcut DAILY 0 01/21/25 02/04/25 History mL) subcutaneous pen (Lantus Solostar U-100 Insulin) Patient hx anesthesia problems: none Family hx anesthesia problems: none Results Review: All pre-operative results and documents have been reviewed as part of the pre- operative evaluation. [facility] Past Medical History Medical History (Updated 02/03/25 @ 11:35 by Abhi Guardado DO) GERD (gastroesophageal reflux disease) Neuropathy Hyperlipidemia DM2 (diabetes mellitus, type 2) Occult blood in stools Colon polyp Brain tumor History of seizure disorder Anemia Diabetes Hypertension Surgical History Surgical History (Updated 01/24/25 @ 14:55 by Niko Alan MD) H/O colonoscopy with polypectomy L4 through S1 on November 02, 2022 History of back surgery History of brain surgery Hx of total knee arthroplasty Bilaterally Family History Family History (Updated 01/21/25 @ 17:48 by Eliceo Brush RN) Unknown No problems noted. Sibling Heart valve replaced CHF (congestive heart failure) Sibling Diabetes mellitus Sibling Diabetes mellitus Sibling Diabetes mellitus Mother Diabetes mellitus Grandparent Diabetes mellitus Social History Social History Social History: The patient lives home alone and has 2 children. 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 Code status full code. Smoking status: Never smoker Alcohol intake: never Substance use: never Substance use type: does not use Do You Feel Safe in your Home?: Yes Lack of Transportation: No Lack of Food: Never True Current Housing: I Have Housing Concerned About Future Housing: No Difficulty Paying Gas/Electric Bills: No Difficulty Paying for Meds: No Currently Unemployed: No Education: Decline to Answer Difficulty w/ Childcare or Family Care: No Living arrangements: with family Spiritual care concerns: No Anes - Eval Final PreProcedure Day of Procedure 02/04/25 11:04 Patient weight: obese Heart: regular rate and rhythm Lungs: clear to auscultation Airway: Mallampati scale class II Neurological: alert and oriented Last oral intake: >/= 8 hours ASA classification: III Emergent: no Anesthetic plan: proceed Anesthesia type and monitoring: general GIVS and standard monitoring Results Review: All pre-operative results and documents have been reviewed as part of the pre- operative evaluation. Informed Consent: The patient's anesthetic plan and its attendant risks and benefits were discussed with the patient/family/POA. Questions were solicited and answers provided to the satisfaction of the patient/family/POA.
[2025-02-04 11:15] VITALS: BP 153/80; PULSE 77; RESP 20; TEMP 36.2; O2SAT 99
[2025-02-04] MEDS: LACTATED RINGERS 1,000 ML 150 ML IV CONT (11:30)
--- NOTE | 2025-02-04 12:12 | PM.IMHP ---
H&P: HPI History of Present Illness Date/Time: 02/04/25 12:12 Chief Complaint: metastatic adenocarcinoma within peritoneum Narrative: this is a 74-year-old man who presents for EGD and colonoscopy. He recently underwent a diagnostic laparoscopy and was found to have evidence of peritoneal carcinomatosis. Biopsies confirmed adenocarcinoma that was suspicious for lower GI origin. He did have a colonoscopy about 2 years ago and has previously had his appendix removed. He denies any other complaints. Review of Systems Review of Systems: All systems reviewed & are unremarkable except as noted in HPI and below Constitutional: Constitutional: Denies chills, Denies fever(s), Denies headache(s) and Denies weight loss Eyes: Eyes: Denies change in vision ENT: Denies dizziness, Denies headache(s), Denies neck mass and Denies throat swelling Cardiovascular: Cardiovascular: Denies chest pain, Denies lightheadedness and Denies dyspnea Respiratory: Respiratory: Denies cough, Denies dyspnea and Denies wheezing Gastrointestinal: Gastrointestinal: Denies abdominal pain, Denies change in bowel habits, Denies nausea and Denies vomiting Genitourinary: Genitourinary: Denies hematuria and Denies dysuria Musculoskeletal: Musculoskeletal: Reports as per HPI Integumentary/Breasts: Skin/Breast: Reports as per HPI Neurologic: Denies dizziness and Denies headache(s) Allergic/Immunologic: Allergic/Immunologic: Denies throat swelling and Denies wheezing [facility] Past Medical History Medical History (Updated 02/04/25 @ 12:15 by Puneet Tesfaye DO) GERD (gastroesophageal reflux disease) Neuropathy Hyperlipidemia DM2 (diabetes mellitus, type 2) Occult blood in stools Colon polyp Brain tumor History of seizure disorder Anemia Diabetes Hypertension Surgical History Surgical History (Updated 01/24/25 @ 14:55 by Niko Alan MD) H/O colonoscopy with polypectomy L4 through S1 on November 02, 2022 History of back surgery History of brain surgery Hx of total knee arthroplasty Bilaterally Family History Family History (Updated 01/21/25 @ 17:48 by Eliceo Brush RN) Unknown No problems noted. Sibling Heart valve replaced CHF (congestive heart failure) Sibling Diabetes mellitus Sibling Diabetes mellitus Sibling Diabetes mellitus Mother Diabetes mellitus Grandparent Diabetes mellitus Social History Social History Social History: The patient lives home alone and has 2 children. 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 Code status full code. Smoking status: Never smoker Alcohol intake: never Substance use: never Substance use type: does not use Do You Feel Safe in your Home?: Yes Lack of Transportation: No Lack of Food: Never True Current Housing: I Have Housing Concerned About Future Housing: No Difficulty Paying Gas/Electric Bills: No Difficulty Paying for Meds: No Currently Unemployed: No Education: Decline to Answer Difficulty w/ Childcare or Family Care: No Living arrangements: with family Spiritual care concerns: No Meds Home Medications and Allergies Home Medications ?Medication ?Instructions ?Recorded ?Confirmed ?Type atorvastatin 40 mg tablet 40 mg PO DAILY 08/03/22 02/04/25 History multivitamin with minerals-folic 1 tablet PO DAILY 08/03/22 02/04/25 History acid 0.4 mg tablet pantoprazole 40 mg tablet,delayed 40 mg PO DAILY 08/03/22 02/04/25 History release zonisamide 100 mg capsule 200 mg PO DAILY 09/21/22 02/04/25 History lacosamide 100 mg tablet 100 mg PO DAILY 01/17/23 02/04/25 History levetiracetam 500 mg tablet 1,000 mg (2 x 500 mg) PO QAM #30 01/19/23 02/04/25 Rx (Keppra) tabs pregabalin 50 mg capsule (Lyrica) 300 mg (6 x 50 mg) [facility] 01/19/23 02/04/25 Rx caps pregabalin 150 mg capsule 150 mg PO QAM 09/12/23 02/04/25 History levetiracetam 500 mg tablet 1,000 mg PO HS 11/24/24 02/04/25 History (Keppra) fluocinonide 0.05 % topical 1 applic topical PRN 01/21/25 02/02/25 History ointment insulin aspart U-100 100 unit/mL 1 - 15 unit subcut TIDWMEAL 01/21/25 02/04/25 History (3 mL) subcutaneous pen (Novolog FlexPen U-100 Insulin aspart) insulin glargine 100 unit/mL (3 40 unit subcut DAILY 01/21/25 02/04/25 History mL) subcutaneous pen (Lantus Solostar U-100 Insulin) Allergies Allergy/AdvReac Type Severity Reaction Status Date / Time codeine AdvReac Unknown Hyperactive Verified 02/04/25 11:05 empagliflozin (From AdvReac Unknown Other Verified 02/04/25 11:05 Jardiance) Vital Signs Vital Signs - 24 hr 02/04/25 11:15 Temperature 97.1 F L Pulse Rate 77 Respiratory Rate 20 Blood Pressure 153/80 H Pulse Oximetry 99 Oxygen Delivery Room Air Exam Const: General: no acute distress and alert Orientation/consciousness: patient oriented x3 HENMT: Head: normocephalic and atraumatic Ears: hearing grossly normal bilaterally Face/Nose/Sinus: Normal nares present Mouth: Yes Normal oral and palatal mucosa present Eyes: Periorbital: periorbital findings normal Sclera: sclerae normal EOM: EOMs intact bilaterally Neck: Neck: normal visual inspection, no lymphadenopathy and trachea midline Chest: Chest palpation & inspection: normal inspection of the chest Resp: Effort & Inspection: normal respiratory effort Auscultation: clear to auscultation bilaterally Cardio: Jugular venous distension: no JVD Rate: regular rate Rhythm: regular rhythm Heart sounds: S1 normal heart sound present and S2 normal heart sound present Peripheral pulses: Peripheral pulses 2+ throughout GI: Inspection: normal to inspection GI Palp: Yes Soft to palpation, No Tenderness to palpation present (GI), No Guarding due to palpation present (GI) and No Rebound tenderness present Percussion: Yes normal to percussion Auscultation: normal bowel sounds : General: Yes no CVA tenderness Back/Spine/Pelvis: Back: no CVA tenderness Neuro: General: patient oriented x3, no focal motor deficits and CN's II-XI intact bilaterally Cognition (Neuro): normal cognition Speech: normal speech Motor exam (neuro): 5/5 motor strength present throughout Extrem: General: capillary refill normal and no clubbing, cyanosis or edema Assessment and Plan Assessment and plan (1) 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 I have discussed the procedure, risks, benefits, and alternatives. Questions were answered. Patient is agreeable to proceed.
--- NOTE | 2025-02-04 12:35 | SUR.OPER ---
egd ended at 1230 and colonoscopy started at 1236.
--- NOTE | 2025-02-04 13:01 | S_PTH ---
PATIENT: Dane Parker LOC: [facility]#:[id number] AGE/SX: 74/M ROOM: RE02/04/[address]: Puneet Tesfaye DO : 1950 BED: DIS: 02/04/2025 SPEC #: [id number] RECD: 02/04/25 13:12 STATUS: KARSTEN RE #: [id number] CARMEN: 02/04/25 13:[address]: Puneet Tesfaye DEPT: [facility] Surgical RECD BY: Gabbie Garrett ENTERED: 02/04/25 13:13 SP TYPE: Surgical OTHR DR: Redd De Anda MD Tissues: A - Colon Biopsy Procedures: Hematoxylin and Eosin Stain Gross and Microscopic Level 4
[2025-02-04 13:05] VITALS: BP 100/58; PULSE 63; RESP 13; O2SAT 100
[2025-02-04 13:15] VITALS: BP 130/72; PULSE 72; RESP 17; O2SAT 100
[2025-02-04 13:25] VITALS: BP 139/67; PULSE 75; RESP 17; O2SAT 100
== END 2025-02-04 13:48 | disposition home or self-care (01) ==
PROVIDERS: PCP Internal Medicine; Visit Provider Surgery
PROC: 0DJ08ZZ Inspection of Upper Intestinal Tract, Via Natural or Artificial Opening Endoscopic (ICD-10-PCS; CPT 45378; principal; 2025-02-04 12:30)
DX: C18.0 Malignant neoplasm of cecum (principal); C79.89 Secondary malignant neoplasm of other specified sites; K57.30 Diverticulosis of large intestine without perforation or abscess without bleeding; E11.9 Type 2 diabetes mellitus without complications; E66.9 Obesity, unspecified; Z68.30 Body mass index [BMI] 30.0-30.9, adult
CPT/HCPCS: 45380; 43235; 82948; 88305; J2003; J2704; J7120

== ENCOUNTER 2025-03-03 14:25 | Inpatient (IN) | payer MEDICARE, SELFPAY ==
--- NOTE | ~2025-03-03 | XR_ITS ---
EXAMINATION: XR chest port-a-cath/central DATE: 03/06/2025 18:55 INDICATION: Port catheter placement TECHNIQUE: frontal view of the chest was obtained. COMPARISON: Chest radiograph and CT dated 01/21/2025 FINDINGS: The lungs remain clear with no focal airspace opacities, pulmonary edema, pleural effusion or pneumothorax. The cardiomediastinal silhouette is normal. Right internal jugular central venous port catheter with distal tip at the caudal superior vena cava. Cholecystectomy clips in the right upper quadrant. IMPRESSION: 1. No acute cardiopulmonary disease. Reviewed, dictated and finalized at location A.
--- NOTE | ~2025-03-03 | XR_ITS ---
EXAMINATION: XR abdomen gastric tube insert, 03/03/2025 17:15 CDT HISTORY: NG insertion COMPARISON: No comparisons available. Technique: 3 view. Findings: Bowel gas pattern unremarkable. No obstruction. No free air. No abnormal calcifications No acute osseous abnormality. Nasogastric tube terminates in the stomach. Impression: 1. No acute abnormality. Reviewed, dictated and finalized at location P. Impression: 1. No acute abnormality.
--- NOTE | ~2025-03-03 | XR_ITS ---
EXAMINATION: XR sm bowel follow through [facility] DATE: 03/05/2025 11:06 INDICATION: Small bowel obstruction. Appendiceal adenocarcinoma. TECHNIQUE: [employer] Work[employer] radiograph(s) of the abdomen was/were obtained. Water-soluble oral contrast was administered, and sequential radiographs of the abdomen were obtained until oral contrast was noted to be in the proximal colon. COMPARISON: CT dated 03/03/2025 FINDINGS: [employer] Work[employer] radiographs demonstrate nasogastric tube with tip in proximal side port in the body of the stomach. Cholecystectomy clips in right upper quadrant. Tiny focus of metallic shrapnel projecting over the right lower quadrant which is located in the anterior abdominal wall on prior CT. 1.6 similar renal stone projecting over the lower pole the right kidney. Sagittal suture line projecting over the right iliac wing likely related to prior appendectomy. Nonspecific bowel gas pattern with no dilated loops of gas-filled small bowel to suggest obstruction. Mild lumbar levocurvature with moderate spondylosis. Change of prior L3-L5 laminectomies. Transit time from the stomach to proximal colon was approximately 65 to 90 minutes. There is normal caliber and mucosal fold pattern throughout the small bowel. Terminal ileum is normal. No tethering or abnormal mass effect observed upon the small bowel with real-time fluoroscopy. IMPRESSION: 1. Normal small bowel transit time to the colon of 60-90 minutes with no dilated bowel to suggest obstruction. Reviewed, dictated and finalized at location A. IMPRESSION: 1. Normal small bowel transit time to the colon of 60-90 minutes with no dilate d bowel to suggest obstruction.
--- NOTE | ~2025-03-03 | CT_ITS ---
Dane Parker EXAMINATION: CT abdomen pelvis w con COMPARISON: Comparison 01/21/2025 HISTORY: n/v/d, abd pain/distension, h/o ca w/ sgy TECHNIQUE: Axial images were obtained through the abdomen, pelvis post administration of IV contrast. Oral contrast was also administered. Coronal reconstruction images were obtained from the axial views. CT scan performed using dose optimization techniques including the following automated exposure control; adjustment of mA and/or kV; use of iterative reconstruction technique. Automatic exposure control was used to reduce radiation dose. Permanent radiation dose record is archived to PACS. FINDINGS: CT abdomen: LUNG BASES: The lung bases are clear. The visualized portions of the heart and pericardium are unremarkable. LIVER: Mild hepatic steatosis. Portal vein patent. SPLEEN: Spleen is prominent.. KIDNEYS: Right Kidney: Right kidney lower pole renal calculus 1.1 x 1 cm, no hydronephrosis or hydroureter. Left Kidney: Left kidney subcentimeter renal cysts. ADRENAL GLANDS: Subcentimeter adrenal nodules. PANCREAS: Mild pancreatic atrophy. GALLBLADDER/BILIARY: Post cholecystectomy. STOMACH AND ESOPHAGUS: The stomach is distended. BOWEL/MESENTERY: Rectal catheter noted. Multiple fluid-filled loops of large bowel many of which appear hyperemic with mild diverticulosis but no diverticulitis. Ill-defined stranding throughout the mesentery. Appendix not identified. There are fluid-filled slightly dilated loops of small bowel the lar gest measuring 4.6 cm with several thickened appearing loops of small bowel. ADENOPATHY/RETROPERITONEUM: There are enlarged lymph nodes noted in the mesentery the largest 1.1 x 1 cm with abnormal areas of soft tissue density within the mesentery, several of the small bowel loops appear adherent to the anterior abdominal wall. AORTA/VASCULATURE: Normal caliber aorta. FREE FLUID OR FREE AIR: Moderate amount of free fluid throughout the abdomen and pelvis.. CT pelvis: SOLID ORGANS/REPRODUCTIVE: Prostate enlarged correlate with PSA. BLADDER: Circumferential thickening of the bladder wall with perivesicular stranding. OSSEOUS STRUCTURES: No sclerotic or lytic lesions. Postsurgical changes of the lumbar spine. OVERLYING SOFT TISSUES: Small bilateral fat-containing inguinal hernia. IMPRESSION: Small bowel obstruction with findings concerning for carcinomatosis Findings a progressed compared to the previous study Reviewed, dictated and finalized at location P.
--- NOTE | ~2025-03-03 | XR_ITS ---
EXAMINATION: XR fl guide central line place DATE: 03/06/2025 18:37 INDICATION: Port catheter placement TECHNIQUE: 2 fluoroscopic images of the mid to upper chest were obtained during procedure performed by Dr. Tesfaye. Radiologist was not present for the imaging or procedure. The amount of fluoroscopy time used during this procedure was 0.2 minutes. Total DAP was 0.634 Gycm^2. COMPARISON: None. FINDINGS/IMPRESSION: Distal tip of a right internal jugular central venous catheter projects over the superior cavoatrial junction. See procedure note for further detail. Reviewed, dictated and finalized at location A.
[2025-03-03 14:32] VITALS: BP 128/89; PULSE 88; RESP 16; TEMP 36.4; O2SAT 98
--- NOTE | 2025-03-03 14:40 | PC.NURSE ---
Pt glucose upon triage is 235.
[2025-03-03 15:15] LABS: Hematocrit 50.5 % (42.0-52.0); Hemoglobin 16.7 g/dL (14.0-18.0); Immature Granulocyte Percent A 0.5 % (0-0.5); Lymphocytes Absolute Auto 1.18 K/mm3 (0.9-3.2); Mean Corpuscular HGB Conc 33.1 g/dl (32-36); Mean Corpuscular Hemoglobin 28.6 pg (26-34); Mean Corpuscular Volume 86.5 fl (80-100); Nucleated Red Blood Cells Absolute Auto 0.000 K/mm3 (0.0-0.012); Nucleated Red Blood Cells Perc 0.0 % (0.0-0.2); Platelet Count Result 125 k/mm3 (150-375); Red Blood Count 5.84 M/mm3 (4.6-6.20); White Blood Count 15.1 K/mm3 (4.5-10.0)
--- NOTE | 2025-03-03 15:18 | ED.NAVMDI ---
HPI - Nausea/Vomiting/Diarrhea General Chief complaint: Abdominal Pain Stated complaint: abd pain Time Seen by Provider: 03/03/25 15:01 History of Present Illness HPI Narrative: Presenting here with abdominal pain, nausea vomiting for the last day or so, then he started having severe diarrhea that started about 30 minutes ago. Has had history of small-bowel obstructions, had recent findings abdominal mass/possible cancer. Related Data Home Medications ?Medication ?Instructions ?Recorded ?Confirmed ?Last Taken ?Type atorvastatin 40 mg tablet 40 mg PO DAILY 08/03/22 02/04/25 02/03/25 History multivitamin with minerals-folic 1 tablet PO DAILY 08/03/22 02/04/25 02/03/25 History acid 0.4 mg tablet pantoprazole 40 mg tablet,delayed 40 mg PO DAILY 08/03/22 02/04/25 02/03/25 History release zonisamide 100 mg capsule 200 mg PO DAILY 09/21/22 02/04/25 02/03/25 History lacosamide 100 mg tablet 100 mg PO DAILY 01/17/23 02/04/25 02/03/25 History pregabalin 150 mg capsule 150 mg PO QAM 09/12/23 02/04/25 02/03/25 History levetiracetam 500 mg tablet 1,000 mg PO HS 11/24/24 02/04/25 02/03/25 History (Keppra) fluocinonide 0.05 % topical 1 applic topical PRN 01/21/25 02/02/25 Unknown History ointment insulin aspart U-100 100 unit/mL 1 - 15 unit subcut TIDWMEAL 01/21/25 02/04/25 02/03/25 History (3 mL) subcutaneous pen (Novolog FlexPen U-100 Insulin aspart) insulin glargine 100 unit/mL (3 40 unit subcut DAILY 01/21/25 02/04/25 02/03/25 History mL) subcutaneous pen (Lantus Solostar U-100 Insulin) Allergies Allergy/AdvReac Type Severity Reaction Status Date / Time codeine AdvReac Unknown Hyperactive Verified 03/03/25 14:42 empagliflozin (From AdvReac Unknown Other Verified 03/03/25 14:42 Jardiance) Review of Systems Review of Systems: All systems reviewed & are unremarkable except as noted in HPI and below PMFSH Past Medical History Medical History History of retinal detachment Glaucoma SBO (small bowel obstruction) GERD (gastroesophageal reflux disease) Neuropathy Hyperlipidemia DM2 (diabetes mellitus, type 2) Occult blood in stools Colon polyp Brain tumor History of seizure disorder Anemia Diabetes Hypertension Surgical History Surgical History History of umbilical hernia repair History of cholecystectomy History of appendectomy History of laparoscopy H/O colonoscopy with polypectomy L4 through S1 on November 02, 2022 History of back surgery History of brain surgery Brain tumor resection, 1995 Hx of total knee arthroplasty Bilaterally Family History Family History Unknown No problems noted. Sibling Heart valve replaced CHF (congestive heart failure) Sibling Diabetes mellitus Sibling Diabetes mellitus Sibling Diabetes mellitus Mother Diabetes mellitus Grandparent Diabetes mellitus Social History Social History Social History: The patient lives home alone and has 2 children. The patient is retired from [employer]. He is a lifelong nonsmoker. Code status full code. Smoking status: Never smoker Alcohol intake: never Substance use: never Substance use type: does not use Do You Feel Safe in your Home?: Yes Lack of Transportation: No Lack of Food: Never True Current Housing: I Have Housing Concerned About Future Housing: No Difficulty Paying Gas/Electric Bills: No Difficulty Paying for Meds: No Currently Unemployed: No Education: Decline to Answer Difficulty w/ Childcare or Family Care: No Living arrangements: with family Spiritual care concerns: No Exam Narrative: EXAMINATION OF ORGAN SYSTEMS/BODY AREAS: Constitutional: Vital signs per nursing GENERAL: Appears slightly uncomfortable HEAD: Normal with no signs of head trauma. EYES: EOMI, conjunctiva normal ENT: Hearing grossly intact LUNGS: Nonlabored breathing. HEART: [Regular rate and rhythm] ABD: [Soft], distended, no focal tenderness. RECTAL: ongoing massive brown liquid stools EXT: Normal range of motion SKIN: [No rashes or lesions.] NEURO: [Alert and oriented x 3. No gross focal sensory or strength deficits.] PSYCH: Normal affect Course Vital Signs Vital signs: Vital Signs Temperature 97.6 F 03/03/25 14:32 Pulse Rate 88 03/03/25 14:32 Respiratory Rate 16 03/03/25 14:32 Blood Pressure 128/89 03/03/25 14:32 Pulse Oximetry 98 03/03/25 14:32 Oxygen Delivery Room Air 03/03/25 14:32 Temperature 97.6 F 03/03/25 14:32 Pulse Rate 71 03/03/25 17:58 Respiratory Rate 18 03/03/25 17:58 Blood Pressure 137/70 03/03/25 17:58 Pulse Oximetry 96 03/03/25 17:58 Oxygen Delivery Room Air 03/03/25 14:32 MDM - Nausea/Vomiting/Diarrhea MDM Narrative Medical decision making narrative: Electronic medical record was reviewed. Patient presented to the ED with complaint of [abdominal pain and vomiting, now with massive diarrhea, history of bowel obstructions and was recently diagnosed with abdominal cancer]. Vitals [were within acceptable limits]. Physical exam revealed distended abdomen and large amount of diarrhea that is still continuous, patient offered rectal tube for comfort. Based on the patient's history and physical exam, my differential includes but is not limited to bowel obstruction, gastroenteritis. [IV access was established by nursing staff. Patient was given zofran, fluids]. CBC, BMP, lipase, LFTs, bilirubin and alk phos were obtained. Labs were pertinent for leukocytosis. [Decision was made to obtain a CT-abdomen to evaluate for acute abdominal process. CT-abdomen per radiology interpretation shows SBO, likely carcinomatosis.] On reevaluation, the patient states that they are feeling better. Nasogastric tube placed. He is updated on findings and plan for admission. Discussed with hospitalist and general surgeon. Lab Data 03/03/25 15:04 03/03/25 15:04 Labs: Lab Results 03/03/25 03/03/25 03/03/25 Range/Units 14:38 15:04 15:19 WBC 15.1 H (4.5-10.0) K/mm3 RBC 5.84 (4.6-6.20) M/mm3 Hgb 16.7 (14.0-18.0) g/dL Hct 50.5 (42.0-52.0) % MCV 86.5 (80-100) fl MCH 28.6 (26-34) pg MCHC 33.1 (32-36) g/dl RDW 14.5 (11.5-14.5) % Plt Count 125 L (150-375) k/mm3 MPV 11.8 H (7.4-10.4) fl Immature Gran % (Auto) 0.5 (0-0.5) % Neut % (Auto) 85.9 H (45.5-73.1) % Lymph % (Auto) 7.8 L (18.3-44.2) % [place] % (Auto) 5.0 (2.6-8.5) % Eos % (Auto) 0.3 (0-4.4) % Baso % (Auto) 0.5 (0.2-1.2) % Lymph # (Auto) 1.18 (0.9-3.2) K/mm3 [place] # (Auto) 0.8 H (0.1-0.6) K/mm3 Eos # (Auto) 0.0 (0-0.3) K/mm3 Baso # (Auto) 0.1 (0.0-0.1) K/mm3 Abs Immat Gran (auto) 0.08 H (0.00-0.031) K/mm3 Absolute Neuts (auto) 13.0 H (1.3-6.7) K/mm3 Absolute Nucleated RBC 0.000 (0.0-0.012) K/mm3 Nucleated RBC % 0.0 (0.0-0.2) % Sodium 140 (137-145) mmol/L Potassium 4.2 (3.4-5.0) mmol/L Chloride 108 H (98-107) mmol/L Carbon Dioxide 20 L (22-30) mmol/L Anion Gap 12 (4-12) mmol/L BUN 23 H (9-20) mg/dL Creatinine 1.01 (0.7-1.3) mg/dL Estim Creat Clear Calc 65 ml/min Estimated GFR > 60 (59 - ) Glucose 215 H (65-110) mg/dL POC Capillary Glucose 235 H (65-105) mg/dl Lactic Acid 1.5 (0.7-2.0) mmol/L Calcium 9.3 (8.4-10.2) mg/dL Total Bilirubin 0.8 (0.2-1.3) mg/dL AST 44 (17-59) U/L ALT 23 (6-50) U/L Alkaline Phosphatase 82 (38-126) U/L Total Protein 7.6 (6.3-8.2) g/dL Albumin 4.4 (3.5-5.1) g/dL Lipase 63 (23-300) U/L C. difficile (PCR) Negative (NEGATIVE) Influenza A (RT-PCR) Negative (Negative) Influenza B (RT-PCR) Negative (Negative) RSV (RT-PCR) Negative (Negative) SARS-CoV-2 RNA (RT-PCR) Negative (Negative) Discharge Plan Discharge Clinical Impression: SBO (small bowel obstruction) Patient Disposition: Still a Patient Condition: Stable
--- OUTSIDE RECORDS SUMMARY | 2025-03-03 15:20 | XMS_ITS | Patient Health Record ---
Author Organization [employer] Address [address] [facility]. [address] [place] [address] Care Team Providers Care Lime Filter Operator Name Role Phone Eric Allen DO Primary Care Provider Unavailab le Reason For Referral No Information Plan Of Treatment No Information Insurance Providers Payer Name Payer Address Payer Phone Subscriber Number Group Number Insured Name Patient Relationship to Insured Coverage Start Date Coverage End Date [employer]mr- [employer] [address] [phone] [id number] Dane Parker Self - patient is the insured
--- OUTSIDE RECORDS SUMMARY | 2025-03-03 15:20 | XMS_ITS | Clinical Summary ---
Author Organization [facility] Building [address] Address [address] [place] [address] Care Team Providers Care Glue Mixer Name Role Phone Redd De Anda MD Primary Care Provider [phone] Allergies Active Allergy Reactions Criticality Noted Date Comments Codeine Other (See comments) Reaction: HYPERACTIVITY, , Empagliflozin Other (See comments) Low 05/14/2022 Other reaction(s): COUNSELING PROGRAM LEADER Dysfunction Euglycemic dka Euglycemic dka Euglycemic dka Other reaction(s): COUNSELING PROGRAM LEADER Dysfunction Euglycemic dka Medications insulin aspart (NovoLOG) [...] 12/27/2022 Assessment & Plan (07/23/2024 10:57 AM CHEESEMAKER): The patient's neuropathy symptoms remained stable. Continue [...] 08/29/2017 Assessment & Plan (07/23/2024 10:56 AM CHEESEMAKER): Essential tremor symptoms remained stable. Continue zonisamide 200 mg at bedtime. Transient ischemic attack (TIA) 08/29/2017 Abdominal pain, LLQ (left lower quadrant) 2013 Splenomegaly 04/04/2014 DM (diabetes mellitus) type II controlled, neurological manifestation 10/22/2013 Need for prophylactic vaccin ation and inoculation against influenza 03/06/2013 Seizure 02/12/2013 Overview (08/30/2016): Seizure Assessment & Plan (07/23/2024 10:52 AM CHEESEMAKER): The patient remains seizure-free on his current medications. Continue lacosamide 100 mg Continue Keppra a 1000 mg in the morning and 1500 mg in the p.m.. He is also on Lyrica and zonisamide which can also help treat seizures. Assessment & Plan (04/22/2024 8:17 AM CHEESEMAKER): The patient has on multiple seizure medications [...] tumor (HCC) Brain t umor Diabetes mellitus Diabetes Carpal tunnel syndrome Carpal tu nnel/peripheral [...] on file Legal Sex Male 3:24 PM CHEESEMAKER Gender Identity Not on file Sexual Orientation Not on file Obstetrics History Last Filed Vital Signs Vital Sign Reading Time Taken Comments Blood Pressure 155/79 07/23/2024 10:19 AM CHEESEMAKER Pulse 85 10/29/2023 2:38 PM CDT Temperature 36.4 C (97.5 F) 10/09/2023 9:45 AM CDT Respiratory Rate 20 10/29/2023 2:38 PM CDT Oxygen Saturation 97% 10/29/2023 2:38 PM CDT Inhaled Oxygen Concentration - - Weight 101.6 kg (224 lb) 07/23/2024 10:19 AM CHEESEMAKER Height 175.3 cm (5' 9) 07/23/2024 10:19 AM CHEESEMAKER Body Mass Index 33.08 07/23/2024 10:19 AM CHEESEMAKER Plan of Treatment Health Maintenance Due Date Last Done Comments Albumin Creatinine Ratio, Urine 1950 Colon Cancer Screening-Colonoscopy 1950 Depression Screening 1950 Hepatitis C Screening 1950 eGFR 1950 Dilated Eye Exam 1950 Foot Exam 1950 Lipid Panel 1950 Hepatitis B Screening 02/15/1968 Well Visit 65+ 2015 Zoster Vaccine (3 of 3) 09/27/2020 08/02/2020, 01/02 Hemoglobin A1C 04/30/2023 10/29/2022, 04/27, 01/21/2019 Fall Risk Assessment 10/08/2024 10/09/2023 Covid-19 Vaccine (4 - 2024-2 6 season) 2025 03/16/2022, 08/04/2020, 07/14/2020 Influenza Vaccine (#1) 2025 , 03/28/2021, 02/26/2020, Additional history exists DTaP/Tdap/Td Vaccine (4 - Td or Tdap) 03/17/2032 03/17/2022, 08/01/2018, 01/03/2012 Pneumococcal vaccine 65+ Completed 020, 02/25/2017, 10/18/2016, Additional history exists Abdominal Aortic Aneurysm (A AA) Screen Completed 10/28/2022, 01/20/2019, 09/02/2014, Additional history exists Insurance [employer] CHO[employer] MEDICARE PPO Care Teams Glue Mixer Relationship Specialty Start Date End Date Redd De Anda MD PCP - General Internal Medicine 06/16/22
--- OUTSIDE RECORDS SUMMARY | 2025-03-03 15:20 | XMS_ITS | Encounter Summary ---
Author Organization [facility] Health Address [address] [place] [address] Care Team Providers Care Imcu Nurse Name Role Phone Eliceo Templeton RN Unavailable [phone] Casie Pruett RN Unavailable Unava ilable Redd De Anda MD Primary Care Provider [phone] Reason for Visit * Reason Comments Refill Request Encounter Details Date Type Department Care Team (Late st Contact Info) Description 09/21/2022 Refill [facility] - Orthopedics [address] [facility] [place] [address] Abhijeet Gallego MD [address] [facility] [place] [address] Refill Request Social History Tobacco [...] PM CDT Legal Sex Male 5:30 AM EVENTS ASSOCIATE Gender Identity Not on file Sexual Orientation Straight 02/15/2022 2: 37 PM CDT 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 on file Not on file [...] documented in this encounter Plan of Treatment Upcoming Encounters Date Type Department Care Team (Late st Contact Info) Description 03/05/2025 3:00 PM CDT Appointment [facility] [address] [place] [id number] Shabnam Whittaker MD [address] [phone] 05/27/2025 11:45 AM EVENTS ASSOCIATE Office Visit [facility] - General Surgery [address] [place] [id number] Shabnam Whittaker MD [address] [place] [address] documented as of this encounter Visit Diagnoses Not on filedocumented in this encounter Care Teams Imcu Nurse Relationship Specialty Start Date End Date Redd De Anda MD [address] [place] [address] PCP - General Internal Medicine 05/11/22 Eliceo Templeton, RN Animal Taxonomist 10/22/13 GideonCasie Celeste RN Registered Nurse 09/28/16 documented as of this encounter
--- OUTSIDE RECORDS SUMMARY | 2025-03-03 15:20 | XMS_ITS | Clinical Summary ---
Author Organization [facility] Address [address] [place] [address] Phone Care Team Providers Care Academic Counselor Name Role Phone Redd De Anda MD Primary Care Provider [phone] Allergies Active Allergy Reactions Criticality Noted Date Comments Codeine Other (See Comments) 01/16/2014 Extreme insomnia Empagliflozin Other (See Comments) 05/14/2022 Euglycemic dka Other reaction(s): CLINICAL CYTOGENETICIST SCIENTIST Dysfunction Euglycemic dka Medications insulin aspart protamine-aspar [...] Encounters Date Type Department Care Team Description 02/10/2025 External Device Data STL ABSTRACTION Provider, Abstract 01/13/2025 External Device Data [facility] ABSTRACTION Provider, [...] on file Legal Sex Male 2:53 AM AIRDOX FITTER Gender Identity Not on file Sexual Orientation [...] st Contact Info) Description 07/14/2025 2:45 PM AIRDOX FITTER Office Visit [facility] - [place] [address] [place] [address] Rey Reyna MD [address] [address] [place] [address] Health Maintenance Due Date Last Done Comments DIABETES ANNUAL FOOT EXAM 02/15/1968 DIABETES MICROALBUMIN ANNUAL SCREEN 02/15/1968 LDL CHOLESTEROL ANNUAL 02/15/1968 COLORECTAL SCREENING 1995 Colorectal Cancer Screening 1995 FIT-DNA Q 3 years 1995 FIT/FOBT Q 1 year 1995 Flex Sig/CT Colonography Q 5 years 1995 ZOSTER VACCINE (3 of 3) 09/27/2020 08/02/2020, 01/02 DIABETES HBA1C Q 6 MONTHS 04/30/2023 10/29/2022, [place] Preventative Visit/Annual Wellness Visit 05/28/2024 INFLUENZA VACCINE (#1) 2024 , 03/12/2023, 03/02/2022, Additional history exists COVID-19 Vaccine (2023-2 5 season) 2025 04/01/2024, 03/12/2023, 03/16/2022, Additional history exists RSV VACCINE (60+ or ) (1 - 1-dose 75+ series) 2025 DIABETES ANNUAL RETINAL EXAM 02/28/2025 02/29/2024, 02/03/2022 DTAP/TDAP/TD VACCINES (4 - T d or Tdap) 03/17/2032 03/17/2022, 08/01/2018, 01/03/2012 PNEUMOCOCCAL VACCINE 50+ YEARS Completed 1 06/16/2022, 07/29/2019, 02/25/2017, Additional history exists Medical Devices Implanted Type Area Airplane Technician Device Identifier Shelf Expiration Date Model / Serial / Lot Knee Knee Insurance [facility] Advance Directives For more information, please contact: [phone] * Full Code (Latest Code Status on File) Date Activated Date Inactivated Comments 10/16/2018 12:47 AM 10/17/2018 4:54 PM * Full Code Date Activated Date Inactivated Comments 01/27/2014 8:03 AM 01/27/2014 12:09 PM * Full Code Date Activated Date Inactivated Comments 01/27/2014 7:45 AM 01/27/2014 8:03 AM Care Teams Academic Counselor Relationship Specialty Start Date End Date Redd De Anda MD [address] [place] [address] PCP - General Internal Medicine 03/27/23
--- OUTSIDE RECORDS SUMMARY | 2025-03-03 15:21 | XMS_ITS | Clinical Summary ---
Author Organization [facility] Address [address] [place] [address] Care Team Providers Care Program Manager Rn Name Role Phone Eliceo Templeton RN Unavailable [phone] Casie Pruett RN Unavailable Unava Redd Barbour MD Primary Care Provider [phone] Source Comments [facility],non-owned Affiliates and Associated Physician Practices is amultiple site organization consisting of ambulatory clinics and hospital sitesin [place], [place], [place] and [place]. This disclosure is being madepursuant to the Care Everywhere program and may not contain all information available regarding this patient. Last updated 18.[facility] Allergies Active Allergy Reactions Criticality Noted Date Comments Codeine 02/21/2010 Gets really hyper Empagliflozin RESOURCE PROTECTION SPECIALIST Dysfunction 05/14/2022 Euglycemic dka Medications * [...] Acute hyperkalemia 01/20/2019 Acute hyperglycemia 01/20/2019 11/05/19 Septic shock 01/20/2019 11/04/2022 Chest pain 01/20/2019 11/04/2022 Sepsis due to undetermined organism 01/20/2019 11/04/2022 Acute appendicitis 09/03/2014 Leukocytosis 04/04/2014 11/09/2022 Thrombocytopenia, secondary 04/04/2014 11/09/2022 TIA (transient ischemic attack) 10/22/2013 11/09/2022 Encounters Date Type Department Care Team Description 02/18/2025 10:00 AM CDT Office Visit [facility] - General Surgery [address] [place] [address] Shabanm Whittaker MD 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) 02/18/2025 Travel 02/17/2025 9:51 AM CDT - 02/17/2025 11:59 PM CDT Hospital Encounter [facility] - Outside Imaging Discharge Disposition: Home or Self Care 02/17/2025 9:51 AM CDT - 02/17/2025 11:59 PM CDT Hospital Encounter [facility] - Outside Imaging Discharge Disposition: Home or Self Care 02/11/2025 Telephone [facility] - General Surgery [address] [place] [address] Alanis Russ, RN Appointment from Last 3 Months Immunizations Immunization Administration Dates Next Due INFLUENZA [...] and heating? Not hard at all 10/28/2022 [facility] [place] [facility] Occupat [facility] - Occupational Stress [...] place to sleep or slept in a assisted (including now)? 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 Not on file Not on file Not on file Last Filed Vital Signs Vital Sign Reading Time Taken Comments Blood Pressure 137/81 02/18/2025 9:57 AM CDT Pulse 69 02/18/2025 9:57 AM CDT Temperature 36.8 C (98.2 F) 02/18/2025 9:57 AM CDT Respiratory Rate 14 01/08/2023 10:32 AM CDT Oxygen Saturation 100% 01/08/2023 10:32 AM CDT Inhaled Oxygen Concentration - - Weight 84.8 kg (187 lb) 02/18/2025 9:57 AM CDT Height 175.3 cm (5' 9) 02/18/2025 9:57 AM CDT Body Mass Index 27.62 02/18/2025 9:57 AM CDT Plan of Treatment Upcoming Encounters Date Type Department Care Team (Late st Contact Info) Description 03/05/2025 3:00 PM CDT Appointment [facility] CAT SC[facility] [address] [place] [address] Shabnam Whittaker MD [facility] [phone] 05/27/2025 11:45 AM WIRE BRUSH OPERATOR [facility] [address] [place] [address] Shabnam Whittaker MD [address] [address] Health Maintenance Due Date Last Done Comments COLOGUARD (AGES 45-75) - COLON CA SCREENING 1950 CT COLONOGRAPHY - COLON CA SCREENING 1950 FIT - COLON CA SCREENING 1950 FLEX SIG - COLON CA SCREENING 1950 DIABETES-FOOT EXAM WITH MONOFILAMENT 08/11/2019 ZOSTER VACCINE (3 of 3) 09/27/2020 08/02/2020, 01/02 DIABETES-HGB A1C 04/30/2023 10/29/2022, , 03/02/2022, Additional history exists DIABETES-SERUM CREATININE 01/09/20242022, 11/08/2022, 11/07/2022, Additional history exists DEPRESSION SCREENING 05/28/2024 DIABETES - URINE PROTEIN SCREENING 05/28/2024 05/17/2022, 09/06/2021, 09/06/2021, Additional history exists MEDICARE AWV CALENDAR YEAR 2024 COVID-19 VACCINE ( season) 2025 03/16/2022, 04/25/2021, 08/04/2020, Additional history exists INFLUENZA VACCINE (#1) 2025 , 03/28/2023, 03/02/2022, Additional history exists Respiratory Syncytial Virus (RSV) Vaccine Pt: or over 60 yrs (1 - 1-dose 75+ series) 2025 DIABETES RETINOPATHY SCREENING 02/28/2026 02/29/2024 COLON MONITORING 06/18/2029 06/18/2019 COLONOSCOPY - COLON [...] this topic Medical Devices Implanted Type Area Counter Intelligence Technician Device Identifier Shelf Expiration Date Model / Serial / Lot Cmnt Bone Co Hv 40gm Implanted:Qty: 2 on 09/27/2016 by Enmanuel Cerrato MD at [facility] [place] Right: Knee [employer] 05/27/2018 [id number] / / [id number] Cruciate Retaining Legion Nonporous Femoral Component Implanted:Qty: 1 on 09/27/2016 by Enmanuel Cerrato MD at [facility] Right: Knee [employer] 05/09/2025 [id number] / / [id number] Description:Note: explanted 1 x existing screw. Disposition: trash. Onelia 11 Right Non Porous Tibial Baseplate Implanted:Qty: 1 on 09/27/2016 by Enmanuel Cerrato MD at [facility] [place] Right: Knee [employer] 03/11/2026 [id number] / / [id number] Resurfacing Round Patellar Component Implanted:Qty: 1 on 09/27/2016 by Enmanuel Cerrato MD at [facility] [place] Right: Knee [employer] 01/21/2026 [id number] / / [id number] High Flexion Articular Insert Implanted:Qty: 1 on 09/27/2016 by Enmanuel Cerrato MD at [facility] [place] Right: Knee [employer] 07/02/2025 [id number] / / [id number] George Shai Tib Uncem Fem Implanted:Qty: 1 on 09/27/2016 by Enmanuel Cerrato MD at [facility] [place] [employer] BILL ONLY SHAI TIB UNCEM FEM SNORTHO / / Procedures Procedure Name Priority Date/Time Associated Diagnosis Comments COMPREHENSIVE METABOLIC PANEL STAT 01/08/2023 12:02 PM CDT HEPATITIS C AB SCREEN RFLX NAAT QUANT AM Draw 11/04/2022 4:26 AM CDT HEMOGLOBIN A1C Routine 10/29/2022 5:42 AM CDT MICROALB/CREAT RATIO URINE RANDOM PANEL Routine 05/17/2022 9:16 PM WIRE BRUSH OPERATOR from Last 3 Months or Most Recently Relevant to Health Maintenance Results * (ABNORMAL) COMPREHENSIVE METABOLIC PANEL (01/08/2023 12:02 PM CDT) Pathologist [facility] BUN 15 7 - 26 mg/dL 01/08/2023 12:38 PM [facility] Creatinine 0.72 0.71 - 1.16 mg/dL 01/08/2023 12:38 PM [facility] Sodium 140 136 - 145 mmol/L 01/08/2023 12:38 PM [facility] Potassium 4.1 3.5 - 4.5 mmol/L 01/08/2023 12:38 PM [facility] Chloride 110(H) 98 - 107 mmol/L 01/08/2023 12:38 PM [facility] CO2 21(L) 22 - 29 mmol/L 01/08/2023 12:38 PM [facility] Glucose 171(H) 70 - 115 mg/dL 01/08/2023 12:38 PM [facility] Calcium 9.3 8.4 - 10.2 mg/dL 01/08/2023 12:38 PM [facility] Protein Total 7.3 6.0 - 8.3 g/dL 01/08/2023 12:38 PM [facility] Albumin 4.0 3.4 - 5.0 g/dL 01/08/2023 12:38 PM [facility] Bilirubin Total 0.3 0.2 - 1.2 mg/dL 01/08/2023 12:38 PM [facility] Alkaline Phosphatase 85 40 - 150 U/L 01/08/2023 12:38 PM [facility] ALT 15 5 - 55 U/L 01/08/2023 12:38 PM [facility] AST 21 5 - 34 U/L 01/08/2023 12:38 PM [facility] Anion Gap 13 8 - 18 01/08/2023 12:38 PM [facility] BUN/Creatinine Ratio 21 7 - 23 01/08/2023 12:38 PM [facility] Osmolality Calculated 295 270 - 300 mOsm/kg 01/08/2023 12:38 PM [facility] Albumin/Globulin Ratio 1.2 1.1 - 2.3 01/08/2023 12:38 PM [facility] eGFR by CKD-EPI >90 >=90 mL/min/1.7 3 m2 01/08/2023 12:38 PM [facility] Blood BLOOD SPECIMEN / Unknown Venipuncture / Unknown 01/08/2023 12:02 PM CDT 01/08/2023 12:13 PM CDT us Joao Patel PA-C LAB - CHEMISTRY OR DERABLES Final Result Performing Organization Address City/[facility]/ZIP Co de Phone Number [address] [address], [place] [phone] * HEPATITIS C AB SCREEN RFLX NAAT QUANT (11/04/2022 4:26 AM CDT) Hepatitis C Antibody Non-react kinjal Non-reac tive 11/04/2022 6:27 AM T [facility] Comment:Hepatitis C Antibody screen indicates no [...] 11/04/2022 5:44 AM CDT us Daryl Nicolas DEPUTY CITY CLERK-PLASTIC MOLDER LAB - CHEMISTRY ORDERABL ES Final Result Performing Organization Address City/[facility]/ZIP Co de Phone Number [address] [address], [place] [phone] * (ABNORMAL) HEMOGLOBIN A1C (10/29/2022 5:42 AM CDT) Hemoglobin A1c 6.9(H) <=5.6 % 10/30/2022 1:24 PM CDT [facility] Estimated Average Glucose 151 mg/dL 10/30/2022 1:24 PM CDT [facility] Comment: HbA1c Interpretation: Normal : < 5.7% Pre-diabetes: 5.7-6.4% Diabetes: Equal to or greater than 6.5% Test results diagnostic of diabetes should be repeated for confirmation. Treatment target values recommended by ADA and other clinical organizations should be used to evaluate metabolic control in patients. Reference: [place] [employer], Standards of Care in Diabetes [...] MD LAB - CHEMISTRY ORDERABLES Final Result [facility] [address] [place] [address], [facility] [phone] * (ABNORMAL) MICROALB/CREAT RATIO URINE RANDOM PANEL (05/17/2022 9:16 PM WIRE BRUSH OPERATOR) Creatinine Urine 83.67 mg/dL 05/17/20 9:55 PM WIRE BRUSH OPERATOR [facility] Microalbumin Urine 13.8 mg/dL 05/17/2022 9:55 PM WIRE BRUSH OPERATOR [facility] Microalbumin/Crea tinine Ratio 164(H) <30 mg/g 05/17/2022 9:55 PM WIRE BRUSH OPERATOR [facility] Urine URINE SPECIMEN OBTAINED BY CLEAN CATCH PROCEDURE / Unknown Collection / Unknown 05/17/2022 9:16 PM WIRE BRUSH OPERATOR 05/17/2022 9:35 PM WIRE BRUSH OPERATOR Trinidad Mckenzie MD LAB - URINE CHEMISTRY ORDERABLES Final Result [facility] [address] [place] [address] from Last 3 Months or Most Recently Relevant to Health Maintenance Insurance HUMAN Member Subscriber Plan / Payer (Ef fective for All Dates) Name:Dane Parker Relation to Subscriber:Self Name:ParkerDane Payer ID:[id number] (NAIC) Type:Medicare-Managed Care Address: [place] [id number] HUMANA MEDICARE ADV HMO & PPO SELF PAY NO INSURANCE Member Subscriber Plan / Payer (Ef fective for All Dates) Name:Dane Parker Member ID:Not on file Relation to Subscriber:Not on file Name:DANE PARKER Subscriber ID:Not on file (Home) Address: [address] [place] [id number] Payer ID:Not on file Group ID:Not on file Type:Self Pay Address: [place], [place] Advance Directives * Full Code (Latest [...] 4:13 PM 09/03/2014 6:45 PM Care Teams Program Manager Rn Relationship Specialty Start Date End Date Redd De Anda MD [address] [place] [address] PCP - General Internal Medicine 05/11/22 Eliceo Templeton, RN Electric Tape Slitter 10/22/13 Gideon-Casie Celeste RN Registered Nurse 09/28/16
[2025-03-03] MEDS: LACTATED RINGERS 1,000 ML 999 ML IV CONT (15:24)
[2025-03-03] MEDS: ONDANSETRON INJ 4 MG/2 ML VIAL IV PUSH ×2 (15:24→18:23)
[2025-03-03] MEDS: LOPERAMIDE HCL 2 MG CAPSULE 4 MG PO (15:31)
[2025-03-03 15:43] LABS: Alanine Aminotransferase 23 U/L (6-50); Albumin Level 4.4 g/dL (3.5-5.1); Alkaline Phosphatase 82 U/L (38-126); Anion Gap 12 mmol/L (4-12); Aspartate Amino Transferase 44 U/L (17-59); Bilirubin,Total 0.8 mg/dL (0.2-1.3); Blood Urea Nitrogen 23 mg/dL (9-20); Calcium 9.3 mg/dL (8.4-10.2); Carbon Dioxide 20 mmol/L (22-30); Chloride 108 mmol/L (98-107); Estimated CRCL calculation 65 ml/min; Estimated Glomerular Filt Rate > 60; Glucose 215 mg/dL (65-110); Lipase 63 U/L (23-300); Potassium 4.2 mmol/L (3.4-5.0); Sodium 140 mmol/L (137-145); Total Protein 7.6 g/dL (6.3-8.2)
[2025-03-03 16:13] LABS: Influenza A QL RT-PCR Negative (Negative); Influenza B QL RT-PCR Negative (Negative); RSV RNA, RT-PCR Negative (Negative); SARS-CoV-2 RNA PCR Negative (Negative)
[2025-03-03 16:18] LABS: Toxigenic C. Diff NEGATIVE (NEGATIVE)
--- OUTSIDE RECORDS SUMMARY | 2025-03-03 16:26 | XMS_ITS | Encounter Summary ---
Author Organization [facility] Address [address] [place] [address] Care Team Providers Care Fruit Peeler Name Role Phone Eliceo Templeton RN Unavailable [phone] Casie Pruett RN Unavailable Unava ilable Redd De Anda MD Primary Care Provider [phone] Reason for Visit * Reason Comments Refill Request Encounter Details Date Type Department Care Team (Late st Contact Info) Description 09/21/2022 Refill [facility] - Orthopedics [address] [facility] [place] [address] Abhijeet Gallego MD [address] [facility] [place] [address] Refill Request Social History Tobacco [...] PM CDT Legal Sex Male 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 Gender Identity Not on file Sexual Orientation Straight 02/15/2022 2: 37 PM CDT 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 Not on file [...] Info) Description 03/05/2025 3:00 PM CDT Appointment [facility] CAT SCAN [address] [place] [phone] Shabnam Whittaker MD [address] [phone] 05/27/2025 11:45 AM DENSITOMETER READER Office Visit [facility] - General Surgery [address] [place] [address] Shabnam Whittaker MD [address] [place] [address] documented as of this encounter Visit Diagnoses Not on filedocumented in this encounter Care Teams Fruit Peeler Relationship Specialty Start Date End Date Redd De Anda MD [address] [place] [address] PCP - General Internal Medicine 05/11/22 Eliceo Templeton, RN Client Relationship Manager 10/22/13 GideonCasie Celeste RN Registered Nurse 09/28/16 documented as of this encounter
--- OUTSIDE RECORDS SUMMARY | 2025-03-03 16:26 | XMS_ITS | Clinical Summary ---
Author Organization [facility] Address [address] [place] [address] Care Team Providers Care Assistant Professor Of Nursing Name Role Phone Redd De Anda MD Primary Care Provider [phone] Allergies Active Allergy Reactions Criticality Noted Date Comments Codeine Other (See comments) Reaction: HYPERACTIVITY, , Empagliflozin Other (See comments) Low 05/14/2022 Other reaction(s): COMPLIANCE NURSE Dysfunction Euglycemic dka Euglycemic dka Euglycemic dka Other reaction(s): COMPLIANCE NURSE Dysfunction Euglycemic dka Medications insulin aspart (NovoLOG) [...] 12/27/2022 Assessment & Plan (07/23/2024 10:57 AM PSYCHOLOGY INTERN): The patient's neuropathy symptoms remained stable. Continue [...] 08/29/2017 Assessment & Plan (07/23/2024 10:56 AM PSYCHOLOGY INTERN): Essential tremor symptoms remained stable. Continue zonisamide 200 mg at bedtime. Transient ischemic attack (TIA) 08/29/2017 Abdominal pain, LLQ (left lower quadrant) 2013 Splenomegaly 04/04/2014 DM (diabetes mellitus) type II controlled, neurological manifestation 10/22/2013 Need for prophylactic vaccin ation and inoculation against influenza 03/06/2013 Seizure 02/12/2013 Overview (08/30/2016): Seizure Assessment & Plan (07/23/2024 10:52 AM PSYCHOLOGY INTERN): The patient remains seizure-free on his current medications. Continue lacosamide 100 mg Continue Keppra a 1000 mg in the morning and 1500 mg in the p.m.. He is also on Lyrica and zonisamide which can also help treat seizures. Assessment & Plan (04/22/2024 8:17 AM PSYCHOLOGY INTERN): The patient has on multiple seizure medications [...] on file Legal Sex Male 3:24 PM PSYCHOLOGY INTERN Gender Identity Not on file Sexual Orientation Not on file Obstetrics History Last Filed Vital Signs Vital Sign Reading Time Taken Comments Blood Pressure 155/79 07/23/2024 10:19 AM PSYCHOLOGY INTERN Pulse 85 10/29/2023 2:38 PM CDT Temperature 36.4 C (97.5 F) 10/09/2023 9:45 AM CDT Respiratory Rate 20 10/29/2023 2:38 PM CDT Oxygen Saturation 97% 10/29/2023 2:38 PM CDT Inhaled Oxygen Concentration - - Weight 101.6 kg (224 lb) 07/23/2024 10:19 AM PSYCHOLOGY INTERN Height 175.3 cm (5' 9) 07/23/2024 10:19 AM PSYCHOLOGY INTERN Body Mass Index 33.08 07/23/2024 10:19 AM PSYCHOLOGY INTERN Plan of Treatment Health Maintenance Due Date [...] Insurance [employer] CHOICE MEDICARE PPO Care Teams Assistant Professor Of Nursing Relationship Specialty Start Date End Date Redd De Anda MD PCP - General Internal Medicine 06/16/22
--- OUTSIDE RECORDS SUMMARY | 2025-03-03 16:26 | XMS_ITS | Clinical Summary ---
Author Organization [facility] Address [address] [place] [address] Phone Care Team Providers Care Crane Ladle Person Name Role Phone Redd De Anda MD Primary Care Provider [phone] Allergies Active Allergy Reactions Criticality Noted Date Comments Codeine Other (See Comments) 01/16/2014 Extreme insomnia Empagliflozin Other (See Comments) 05/14/2022 Euglycemic dka Other reaction(s): DAMAGE CUTTER Dysfunction Euglycemic dka Medications insulin aspart protamine-aspar [...] on file Legal Sex Male 2:53 AM CHYRON OPERATOR Gender Identity Not on file Sexual [...] Team (Late st Contact Info) Description 03/05/2025 8:45 AM CDT Office Visit [facility] - [place] [address] [place] [address] Rey Reyna MD [address] [facility] [address] [place] [address] Health Maintenance Due Date Last [...] Q 6 MONTHS 04/30/2023 10/29/2022, [place] Preventative Visit/Annual Wellness Visit 05/28/2024 INFLUENZA VACCINE [...] history exists Medical Devices Implanted Type Area Physical Education Aide Device Identifier Shelf Expiration Date Model / Serial / Lot Knee Knee Insurance [facility] Advance Directives For more information, please contact: [phone] * Full Code (Latest Code Status on File) Date Activated Date Inactivated Comments 10/16/2018 12:47 AM 10/17/2018 4:54 PM * Full Code Date Activated Date Inactivated Comments 01/27/2014 8:03 AM 01/27/2014 12:09 PM * Full Code Date Activated Date Inactivated Comments 01/27/2014 7:45 AM 01/27/2014 8:03 AM Care Teams Crane Ladle Person Relationship Specialty Start Date End Date Redd De Anda MD [address] [place] [address] PCP - General Internal Medicine 03/27/23
--- OUTSIDE RECORDS SUMMARY | 2025-03-03 16:27 | XMS_ITS | Clinical Summary ---
Author Organization [facility] Address [address] [place] [address] Care Team Providers Care Baker Apprentice Name Role Phone Eliceo Templeton RN Unavailable [phone] Casie Pruett RN Unavailable Unava Redd Barbour MD Primary Care Provider [phone] Source Comments [facility],non-owned Affiliates and Associated Physician Practices is amultiple site organization consisting of ambulatory clinics and hospital sitesin [place], [place], [place] and [place]. This disclosure is being madepursuant to the Care Everywhere program and may not contain all information available regarding this patient. 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 Not hard at all 10/28/2022 [facility] [place] [facility] - Occupational Stress [...] place to sleep or slept in a prison (including now)? 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 - General Surgery [address] [place] [address] Shabnam Whittaker MD [address] [address] Health Maintenance Due Date Last [...] this topic Medical Devices Implanted Type Area Refinery Process Engineer Device Identifier Shelf Expiration Date Model / Serial / Lot Cmnt Bone Co Hv 40gm Implanted:Qty: 2 on 09/27/2016 by Enmanuel Cerrato MD at [facility] Right: Knee [employer] 05/27/2018 [id number] / / [id number] Cruciate Retaining Legion Nonporous Femoral Component Implanted:Qty: 1 on 09/27/2016 by Enmanuel Cerrato MD at [facility] Right: Knee [employer] 05/09/2025 [id number] / / [id number] Description:Note: explanted 1 x existing screw. Disposition: trash. Onelia 11 Right Non Porous Tibial Baseplate Implanted:Qty: 1 on 09/27/2016 by Enmanuel Cerrato MD at [facility] Right: Knee [employer] 03/11/2026 [id number] / / [id number] Resurfacing Round Patellar Component Implanted:Qty: 1 on 09/27/2016 by Enmanuel Cerrato MD at [facility] Right: Knee [employer] 01/21/2026 [id number] / / [id number] High Flexion Articular Insert Implanted:Qty: 1 on 09/27/2016 by Enmanuel Cerrato MD at [facility] Right: Knee [employer] 07/02/2025 [id number] / / [id number] George Shai Tib Uncem Fem Implanted:Qty: 1 on 09/27/2016 by Enmanuel Cerrato MD at [facility] [employer] BILL ONLY SHAI TIB UNCEM FEM SNORTHO / / Procedures Procedure Name Priority Date/Time Associated Diagnosis Comments COMPREHENSIVE METABOLIC PANEL STAT 01/08/2023 12:02 PM CDT HEPATITIS C AB SCREEN RFLX NAAT QUANT AM Draw 11/04/2022 4:26 AM CDT HEMOGLOBIN A1C Routine 10/29/2022 5:42 AM CDT MICROALB/CREAT RATIO URINE RANDOM PANEL Routine 05/17/2022 9:16 PM NEGOTIATOR SALES from Last 3 Months or Most Recently Relevant to Health Maintenance Results * (ABNORMAL) COMPREHENSIVE METABOLIC PANEL (01/08/2023 12:02 PM CDT) Pathologist [facility] BUN 15 7 - 26 mg/dL 01/08/2023 12:38 PM [facility] Creatinine 0.72 0.71 - 1.16 mg/dL 01/08/2023 12:38 PM [facility] Sodium 140 136 - 145 mmol/L 01/08/2023 12:38 PM [facility] Potassium 4.1 3.5 - 4.5 mmol/L 01/08/2023 12:38 PM [facility] Chloride 110(H) 98 - 107 mmol/L 01/08/2023 12:38 PM [facility] CO2 21(L) 22 - 29 mmol/L 01/08/2023 12:38 PM [facility] Glucose 171(H) 70 - 115 mg/dL 01/08/2023 12:38 PM [facility] Calcium 9.3 8.4 - 10.2 mg/dL 01/08/2023 12:38 PM [facility] Protein Total 7.3 6.0 - 8.3 g/dL 01/08/2023 12:38 PM [facility] Albumin 4.0 3.4 - 5.0 g/dL 01/08/2023 12:38 PM [facility] Bilirubin Total 0.3 0.2 - 1.2 mg/dL 01/08/2023 12:38 PM [facility] Alkaline Phosphatase 85 40 - 150 U/L 01/08/2023 12:38 PM [facility] ALT 15 5 - 55 U/L 01/08/2023 12:38 PM [facility] AST 21 5 - 34 U/L 01/08/2023 12:38 PM [facility] Anion Gap 13 8 - 18 01/08/2023 12:38 PM [facility] BUN/Creatinine Ratio 21 7 - 23 01/08/2023 12:38 PM T [facility] Osmolality Calculated 295 270 - 300 mOsm/kg 01/08/2023 12:38 PM [facility] Albumin/Globulin Ratio 1.2 1.1 - 2.3 01/08/2023 12:38 PM [facility] eGFR by CKD-EPI >90 >=90 mL/min/1.7 3 m2 01/08/2023 12:38 PM [facility] Blood BLOOD SPECIMEN / Unknown Venipuncture / Unknown 01/08/2023 12:02 PM CDT 01/08/2023 12:13 PM CDT us Joao Patel PA-C LAB - CHEMISTRY OR DERABLES Final Result Performing Organization Address City/[facility]/ZIP Co de Phone Number [address] [address], [place] [phone] * HEPATITIS C AB SCREEN RFLX NAAT QUANT (11/04/2022 4:26 AM CDT) Hepatitis C Antibody Non-react kinjal Non-reac tive 11/04/2022 6:27 AM T [facility] Comment:Hepatitis C Antibody screen indicates no serologic [...] 11/04/2022 5:44 AM CDT us Daryl Nicolas FRAUD REPRESENTATIVE-HANDKERCHIEF MAKER LAB - CHEMISTRY ORDERABL ES Final Result Performing Organization Address City/[facility]/ZIP Co de Phone Number [address] [address], [place] [phone] * (ABNORMAL) HEMOGLOBIN A1C (10/29/2022 5:42 AM CDT) Hemoglobin A1c 6.9(H) <=5.6 % 10/30/2022 1:24 PM CDT [facility] Estimated Average Glucose 151 mg/dL 10/30/2022 1:24 PM CDT [facility] Comment: HbA1c Interpretation: Normal : < 5.7% Pre-diabetes: 5.7-6.4% Diabetes: Equal to or greater than 6.5% Test results diagnostic of diabetes should be repeated for confirmation. Treatment target values recommended by ADA and other clinical organizations should be used to evaluate metabolic control in patients. Reference: [place] [employer], Standards of Care in Diabetes [...] MD LAB - CHEMISTRY ORDERABLES Final Result [facility] [address] [place] [phone], [facility] [phone] * (ABNORMAL) MICROALB/CREAT RATIO URINE RANDOM PANEL (05/17/2022 9:16 PM NEGOTIATOR SALES) Creatinine Urine 83.67 mg/dL 05/17/20 9:55 PM NEGOTIATOR SALES [facility] Microalbumin Urine 13.8 mg/dL 05/17/2022 9:55 PM NEGOTIATOR SALES [facility] Microalbumin/Crea tinine Ratio 164(H) <30 mg/g 05/17/2022 9:55 PM NEGOTIATOR SALES [facility] Urine URINE SPECIMEN OBTAINED BY CLEAN CATCH PROCEDURE / Unknown Collection / Unknown 05/17/2022 9:16 PM NEGOTIATOR SALES 05/17/2022 9:35 PM NEGOTIATOR SALES Trinidad Mckenzie MD LAB - URINE CHEMISTRY ORDERABLES Final Result [facility] [address] [place] [address] from Last 3 Months or Most Recently Relevant to Health Maintenance Insurance HUMAN Member Subscriber Plan / Payer (Ef fective for All Dates) Name:Dane Parker Relation to Subscriber:Self Name:ParkerDane Payer ID:[id number] (NAIC) Type:Medicare-Managed Care Address: [place] [id number] [employer] MEDICARE ADV HMO & PPO SELF PAY NO INSURANCE Member Subscriber Plan / Payer (Ef fective for All Dates) Name:Dane Parker Member ID:Not on file Relation to Subscriber:Not on file Name:DANE PARKER Subscriber ID:Not on file (Home) Address: [address] [place] [address] Payer ID:Not on file Group ID:Not on file Type:Self Pay Address: [place], [place] Advance Directives * Full Code (Latest [...] 4:13 PM 09/03/2014 6:45 PM Care Teams Baker Apprentice Relationship Specialty Start Date End Date Redd De Anda MD [address] [place] [address] PCP - General Internal Medicine 05/11/22 Eliceo Templeton, RN Doubling Machine Operator 10/22/13 Gideon-Casie Celeste RN Registered Nurse 09/28/16
[2025-03-03 16:51] VITALS: BP 145/76; PULSE 74; RESP 17; O2SAT 97
--- NOTE | 2025-03-03 17:38 | PM.IMHP ---
H&P: HPI History of Present Illness Date/Time: 03/03/25 17:38 Chief Complaint: Abdominal Pain Narrative: 75 y/o M with PMH of abdominal wall cancer (peritoneal carcinomatosis, suspicion for lower GI origin), hyperlipidemia, diabetes, brain tumor (s/p resection, 1995), seizure disorder (last one in Apr and brought on by Jardiance, prior to that his last was in 2001), anemia, and hypertension presents here with abdominal pain. The patient presents here on 03/03 from home for further evaluation of abdominal pain, nausea, vomiting, and diarrhea. HPI obtained through patient report and chart review. He reports onset of symptoms today. He describes the abdominal pain as diffuse, sharp, moved around his abdomen (like snakes were in it), radiating into his back - described as pressure, constant, and no modifying factors. He was prescribed pain medication recently by his general surgeon which did not alleviate his pain. He reports the diarrhea started 30 minutes prior to arrival and he described as large volume, brown, and watery. Reports that he felt flushed and diaphoretic when he was nauseated and trying to throw up. When he was finally able to vomit those symptoms resolved. He denies associated hematochezia, melena, or fever. He was recently admitted here from 01/21/2025 to 01/26/2025 for a small bowel obstruction. During this admission the patient was initially treated conservatively with bowel rest and NG tube. However they were unable to remove the NG tube and advance his diet. General surgery discussed possible surgical management which the patient elected to move forward with. He underwent a diagnostic laparoscopy on 01/25 which showed multiple areas of whitish plaques and wash nodules in the lower abdominal peritoneum, as well as same appearing and lesions on multiple loops of the small bowel on the serosas, mesentery, and omentum. Biopsies were taken which showed adenocarcinoma that is believed to be potential lower in GI in origin. Later seen on 02/04/2025 for an EGD and colonoscopy. EGD at that time was normal and his colonoscopy showed a colonic mass and diverticulosis without perforation/abscess/bleeding. Pathology showed adenocarcinoma. He has an abdominal surgery history consistent of diagnostic laparoscopy, appendectomy, cholecystectomy, and umbilical hernia repair. He has been referred to an oncologist - Axel BROWN. Has appt on 03/05. Initial VS at presentation: 97.6? F, HR 88, R 16, 128/89, and 98% on RA. ED workup showed: WBC 15.1, no anemia, no significant electrolyte derangements, creatinine 1.01 and GFR >60, glucose 215, LFTs/lipase within normal limits. C diff negative and viral PCR negative. CT of the abdomen/pelvis showed small-bowel obstruction with findings concerning for carcinomatosis, findings progressed compared to previous study on 01/21/2025. Abdomen XR showed no acute abnormality and NG tube terminating in the stomach. Review of Systems Review of Systems: All systems reviewed & are unremarkable except as noted in HPI and below PMFSH Past Medical History Medical History History of retinal detachment Glaucoma SBO (small bowel obstruction) GERD (gastroesophageal reflux disease) Neuropathy Hyperlipidemia DM2 (diabetes mellitus, type 2) Occult blood in stools Colon polyp Brain tumor History of seizure disorder Anemia Diabetes Hypertension Surgical History Surgical History History of umbilical hernia repair History of cholecystectomy History of appendectomy History of laparoscopy H/O colonoscopy with polypectomy L4 through S1 on November 02, 2022 History of back surgery History of brain surgery Brain tumor resection, 1995 Hx of total knee arthroplasty Bilaterally Family History Family History Unknown No problems noted. Sibling Heart valve replaced CHF (congestive heart failure) Sibling Diabetes mellitus Sibling Diabetes mellitus Sibling Diabetes mellitus Mother Diabetes mellitus Grandparent Diabetes mellitus Social History Social History Social History: The patient lives home alone and has 2 children. 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 Code status full code. Smoking status: Never smoker Alcohol intake: never Substance use: never Substance use type: does not use Do You Feel Safe in your Home?: Yes Lack of Transportation: No Lack of Food: Never True Current Housing: I Have Housing Concerned About Future Housing: No Difficulty Paying Gas/Electric Bills: No Difficulty Paying for Meds: No Currently Unemployed: No Education: Bachelor's Degree Difficulty w/ Childcare or Family Care: No Living arrangements: with family Spiritual care concerns: No Meds Home Medications and Allergies Home Medications ?Medication ?Instructions ?Recorded ?Confirmed ?Type atorvastatin 40 mg tablet 40 mg PO DAILY 08/03/22 03/03/25 History multivitamin with minerals-folic 1 tablet PO DAILY 08/03/22 03/03/25 History acid 0.4 mg tablet pantoprazole 40 mg tablet,delayed 40 mg PO DAILY 08/03/22 03/03/25 History release zonisamide 100 mg capsule 200 mg PO DAILY 09/21/22 03/03/25 History lacosamide 100 mg tablet 100 mg PO DAILY 01/17/23 03/03/25 History levetiracetam 500 mg tablet 1,000 mg (2 x 500 mg) PO QAM #30 01/19/23 03/03/25 Rx (Keppra) tabs pregabalin 50 mg capsule (Lyrica) 300 mg (6 x 50 mg) BYMOUTH HS #15 01/19/23 03/03/25 Rx caps pregabalin 150 mg capsule 150 mg PO QAM 09/12/23 03/03/25 History levetiracetam 500 mg tablet 1,000 mg PO HS 11/24/24 03/03/25 History (Keppra) insulin aspart U-100 100 unit/mL 1 - 15 unit subcut TIDWMEAL 01/21/25 03/03/25 History (3 mL) subcutaneous pen (Novolog FlexPen U-100 Insulin aspart) insulin glargine 100 unit/mL (3 35 unit subcut DAILY 01/21/25 03/03/25 History mL) subcutaneous pen (Lantus Solostar U-100 Insulin) oxycodone 5 mg tablet 5 mg PO Q4H PRN pain #25 tabs 02/19/25 03/03/25 Rx losartan 25 mg tablet 25 mg PO DAILY 03/03/25 03/03/25 History Allergies Allergy/AdvReac Type Severity Reaction Status Date / Time codeine AdvReac Unknown Hyperactive Verified 03/03/25 18:34 empagliflozin (From AdvReac Unknown Other Verified 03/03/25 18:34 Jardiance) Vital Signs Vital Signs - 24 hr 03/03/25 14:32 03/03/25 16:51 Temperature 97.6 F Pulse Rate 88 74 Respiratory Rate 16 17 Blood Pressure 128/89 145/76 H Pulse Oximetry 98 97 Oxygen Delivery Room Air Exam Const: General: comfortable and no acute distress Other: , male, elderly nontoxic appearance HENMT: Face/Nose/Sinus: Normal nares present Mouth: Yes moist mucous membranes Other: NG in place Eyes: General: appearance normal, both eyes and all related structures Sclera: sclerae normal Pupils: Equal, round and reactive pupils present EOM: EOMs intact bilaterally Resp: Effort & Inspection: normal respiratory effort Auscultation: clear to auscultation bilaterally Cardio: Rate: regular rate Rhythm: regular rhythm Other: S1-S2 present without murmur, rub, ectopy GI: Other: Abdomen soft and nondistended. Hypoactive bowel sounds in all quadrants. No tenderness upon palpation. Skin: General skin exam: normal color and no rashes or lesions noted Wounds: no wounds Neuro: Speech: normal speech Motor exam (neuro): 5/5 motor strength present throughout Sensory Exam: normal sensation Other: A&O x4 Extrem: General: normal to inspection Psych: Mental Status: mental status grossly normal Affect: Sad affect present Other: Good insight and judgment, pleasant H&P: Results Labs Labs: Short CBC 03/03/25 Range/Units 15:04 WBC 15.1 H (4.5-10.0) K/mm3 Hgb 16.7 (14.0-18.0) g/dL Hct 50.5 (42.0-52.0) % Plt Count 125 L (150-375) k/mm3 BMP 03/03/25 15:04 Sodium 140 Potassium 4.2 Chloride 108 H Carbon Dioxide 20 L BUN 23 H Creatinine 1.01 Glucose 215 H Calcium 9.3 Liver Function 03/03/25 Range/Units 15:04 Total Bilirubin 0.8 (0.2-1.3) mg/dL AST 44 (17-59) U/L ALT 23 (6-50) U/L Alkaline Phosphatase 82 (38-126) U/L Albumin 4.4 (3.5-5.1) g/dL Assessment and Plan Assessment and plan (1) SBO (small bowel obstruction): Code(s): K56.609 - Unspecified intestinal obstruction, unspecified as to partial versus complete obstruction Status: Acute Assessment and Plan: Presented here on 03/03 with abdominal pain, nausea, vomiting, and diarrhea. CT abd/pelvis showed a small bowel obstruction with findings concerning for carcinomatosis, of findings progressed compared to previous study on 01/21/2025. He recently underwent an EGD and colonoscopy on 02/04/2025. EGD normal. Colonoscopy showed a mass and diverticulosis. Pathology from the colonoscopy showed adenocarcinoma. Plan for NG tube, bowel rest, IV fluids, and general surgery consultation. Suspect recurrent obstruction possibly due to current cancerous mass. - mild leukocytosis of 15.1 noted upon admission, suspect elevation secondary to inflammation/nausea and vomiting. Trend. - IV fluids: LR 1L bolus -> LR 100 mL/hr - NPO except ice chips, NG placed and confirmed on XR, bowel rest - check Mag, trend electrolytes and renal function - analgesics p.r.n.: Tylenol, Morphine - antiemetic p.r.n. 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 Pathology showed adenocarcinoma, suspected to be lower GI in origin. EGD and colonoscopy completed, see reports. Pathology from colonoscopy also showed adenocarcinoma. - referred to Oncology, Axel BROWN, whom he has previously seen for Hematology reasons. Has appt on 03/05 () (3) Hypertension: Qualifiers: Hypertension type: primary hypertension Qualified Code(s): I10 - Essential (primary) hypertension Code(s): I10 - Essential (primary) hypertension Status: Chronic Assessment and Plan: - chronic, currently 137/78, stable. - hold home medications while NPO: losartan - hydralazine prn for BP >180/90 - monitor (4) DM2 (diabetes mellitus, type 2): Qualifiers: Diabetes mellitus complication status: without complication Diabetes mellitus technician terminal and repeater insulin use: with technician terminal and repeater use Qualified Code(s): E11.9 - Type 2 diabetes mellitus without complications; Z79.4 - intermodal dispatcher (current) use of insulin Code(s): E11.9 - Type 2 diabetes mellitus without complications Status: Chronic Assessment and Plan: - hypoglycemia protocol - POC blood glucose Q6H while NPO - home medication: hold home Novlog and Lantus - correct regimen ordered - high dose Q6H, based off BMI - A1C 6.9% on 11/25/2024 (5) Seizures: Code(s): R56.9 - Unspecified convulsions Status: Acute Assessment and Plan: - last seizure in 2021 due to Jardiance, before that his last seizure was in 2001 - hold home p.o. Keharleenra, on 1 g b.i.d.. We will continue as 1 G IV b.i.d. until no longer NPO Plan Diet: NPO except ice chips, bowel rest GI Prophylaxis: Ppi IV DVT Prophylaxis: SCDs IV fluids: 1L bolus -> 100 mL/hr Lines/Tubes: Peripheral IV, NG tube Code Status: full code Quality VTE Prophylaxis VTE prophylaxis: mechanical ordered Hospitalist [facility] Advance Care Plan I have confirmed that the patient's Advanced Care Plan is present, code status is documented, or surrogate decision maker is listed in patient medical record.: Yes Medication Reconciliation I have utilized all available resources to obtain, update and review the patients current medications (includes all prescriptions, OTC, herbals, cannabis, and nutritional supplements).: Yes
[2025-03-03 17:58] VITALS: BP 137/70; PULSE 71; RESP 18; O2SAT 96
[2025-03-03] MEDS: MORPHINE SULFATE (*CRX) 4 MG/ML INJ 2 MG IV PUSH (18:23)
--- NOTE | 2025-03-03 18:33 | ADMGEN ---
This patient, Dane Parker, was admitted to [address] [place] [address] Room 300-01. Patient/family oriented to hospital policies and general routines including ID bracelet, bed and alarms, visiting hours, pain management, procedures, bathroom and other care routines, personal items, smoking policy, room service/diet, and visiting hours. Information on how to activate the Rapid Response Team has been discussed. Patient/Family are encouraged to report perceived risks to care and to ask questions if they do not understand what they are told or what they should do.
[2025-03-03 18:40] VITALS: BMI 27.1
[2025-03-03] MEDS: LACTATED RINGERS 1,000 ML 100 ML IV CONT (18:57)
[2025-03-03 19:46] VITALS: BP 127/61; PULSE 68; RESP 14; TEMP 36.4; O2SAT 98
[2025-03-03 20:25] LABS: Magnesium 1.8 mg/dL (1.6-2.3)
[2025-03-03] MEDS: levETIRAcetam 1000MG/NACL100ML 1,000 MG/100 ML BAG 400 MG IVPB (21:51)
[2025-03-04] MEDS: MORPHINE SULFATE (*CRX) 4 MG/ML INJ IV PUSH ×3 (00:31→17:39)
[2025-03-04 04:37] VITALS: BP 131/68; PULSE 67; RESP 14; TEMP 36.5; O2SAT 97
[2025-03-04] MEDS: LACTATED RINGERS 1,000 ML 100 ML IV CONT ×2 (04:42→15:06)
[2025-03-04 06:17] LABS: Hematocrit 42.0 % (42.0-52.0); Hemoglobin 13.5 g/dL (14.0-18.0); Immature Platelet Fraction Pct 8.7 % (0.9-11.2); Mean Corpuscular HGB Conc 32.1 g/dl (32-36); Mean Corpuscular Hemoglobin 28.8 pg (26-34); Mean Corpuscular Volume 89.6 fl (80-100); Platelet Count Result 79 k/mm3 (150-375); Red Blood Count 4.69 M/mm3 (4.6-6.20); White Blood Count 6.8 K/mm3 (4.5-10.0)
[2025-03-04 06:37] LABS: Alanine Aminotransferase 16 U/L (6-50); Albumin Level 3.3 g/dL (3.5-5.1); Alkaline Phosphatase 67 U/L (38-126); Anion Gap 5 mmol/L (4-12); Aspartate Amino Transferase 27 U/L (17-59); Bilirubin,Total 0.5 mg/dL (0.2-1.3); Blood Urea Nitrogen 20 mg/dL (9-20); Calcium 8.3 mg/dL (8.4-10.2); Carbon Dioxide 27 mmol/L (22-30); Chloride 107 mmol/L (98-107); Estimated CRCL calculation 57 ml/min; Estimated Glomerular Filt Rate > 60; Glucose 88 mg/dL (65-110); Magnesium 1.7 mg/dL (1.6-2.3); Potassium 3.8 mmol/L (3.4-5.0); Sodium 139 mmol/L (137-145); Total Protein 5.7 g/dL (6.3-8.2)
[2025-03-04 07:06] LABS: Band Neutrophils Percent 2 % (0-6); Basophils Absolute Manual 0.00 K/mm3 (0.0-0.1); Basophils Percent Manual 0 % (0-1); Eosinophils Absolute Manual 0.06 K/mm3 (0.02-0.50); Eosinophils Percent Manual 1 % (0-4); Lymphocytes Absolute Manual 1.49 K/mm3 (1.1-4.5); Lymphocytes Percent Manual 22 % (18-44); Monocytes Absolute Manual 0.20 K/mm3 (0.1-0.90); Monocytes Percent Manual 3 % (3-9); Neutrophils Absolute Manual 5.03 K/mm3 (1.3-6.7); Neutrophils Percent Manual 72 % (46-73); Total Cells Counted 100
[2025-03-04 07:07] LABS: Hypochromasia Occasional; Schistocytes None Seen
[2025-03-04] MEDS: levETIRAcetam 1000MG/NACL100ML 1,000 MG/100 ML BAG 400 MG IVPB ×2 (08:44→20:07)
[2025-03-04] MEDS: PANTOPRAZOLE SODIUM IV 40 MG VIAL IV PUSH (08:44)
--- NOTE | 2025-03-04 09:33 | PM.CNGS ---
Assessment and Plan Assessment and plan (1) SBO (small bowel obstruction): Code(s): K56.609 - Unspecified intestinal obstruction, unspecified as to partial versus complete obstruction Status: Acute Assessment and Plan: Patient has extensive history of multiple small-bowel obstructions. This most recent episode started with abdominal pain 2 nights ago around 3:00 a.m.. Patient was eat able to eat yogurt for breakfast, but pain persisted and he later developed nausea and vomiting around 1 in the afternoon. This ultimately led patient to present to the ED. CT demonstrated small bowel obstruction. NG tube was placed. WBC 15.1 yesterday, down to 6.8 today. Repeat abdominal imaging this morning demonstrated no acute abnormalities. Upon exam, patient is diffusely tender to his abdomen. Last bowel movement was yesterday in the emergency department. He has not had a bowel movement or passed any gas since this time. Hypoactive bowel sounds. Continue with conservative management today. Keep patient NPO and hooked up to NG suction. Will consider small bowel series in the future. We will continue to follow with serial abdominal exams and labs. 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 Biopsy revealed metastatic adeno carcinoma. Colonoscopy was performed which demonstrated a nonobstructing small friable mass to the cecum, later identified as adenocarcinoma. Patient was referred to Dr. Whittaker with [facility] surgical oncology. He states that she said she was going to talk to Dr. Peoples about treatment, as he can not have chemo if he is not eating. He also states he has not been able to get in with Dr. Reyna yet, but that he has seen him in the past for blood issues. Plan Discussed patient's case and plan of care with Dr. Tefsaye. History of Present Illness Consult details Consult date: 03/04/25 Reason for consult: other (Small bowel obstruction) Requesting physician: Gem Ledesma MD Narrative: Patient is a 75-year-old male with history of type 2 diabetes mellitus, seizures, hypertension, hyperlipidemia, multiple SBOs (s/p diagnostic laparoscopy with laparoscopic incisional biopsy of peritoneum and omentum). Cholecystectomy, appendectomy umbilical hernia repair. With this episode, patient states that he was awoken around 3:00 a.m. on 03/03 with abdominal pain. He was able to eat some yogurt for breakfast, but eventually ended up having several episodes of emesis around 1 in the afternoon. He also endorses diarrhea. Denies blood in emesis or stool. Patient presented to the emergency department in the afternoon. He states he had a loose bowel movement on the way to the ER and then again in the emergency department. Upon admission to the ED, labs revealed a white blood cell count of 15.1. CT demonstrated a small bowel obstruction with findings concerning for carcinomatosis. Findings progressed compared to previous study. General surgery team consulted at this time. Upon interview today, patient has NG tube placed. Still complains of diffuse abdominal pain. No bowel movement for emesis since yesterday. Denies passing gas. Labs this morning demonstrated decreased white blood cell count of 6.8. Afebrile. Plain films this morning showed no acute abnormality. Patient is well known to our general surgery service. We were first consulted during his admission from 11/24/2024 to 11/30/2024 for a small-bowel obstruction. This was able to be treated with conservative management. However, patient was readmitted on 01/21 with a small-bowel obstruction. At this time he stated he had multiple obstruction since his last admission that were treated conservatively. Patient ultimately opted to have surgery on 01/23/2025. Diagnostic laparoscopy discovered whitish nodules and plaques covering lower abdominal peritoneum, small bowel serosa, mesentery, and omentum. A biopsy was obtained and no resection was performed as no significant bowel dilation was appreciated. The biopsy eventually was determined to be metastatic adeno carcinoma. Patient returned on 02/04 for a planned EGD and colonoscopy with Dr. Tesfaye. EGD was benign but colonoscopy found a nonobstructing small friable mass in the cecum at the appendiceal orifice. A biopsy was taken and sent to pathology. This came back showing adenocarcinoma. Patient was referred to Dr. Whittaker, surgical oncologist at [facility]. Patient states that he has seen her and she stated that she was going to talk to Dr. Peoples. He also reports that he needs to up his nutrition to pursue chemo. Patient also reports that he was supposed to see Dr. Reyna, but that he could not get ahold of the office. He states that he had seen Dr. Reyna in the past for blood issues. [facility] Past Medical History Medical History History of retinal detachment Glaucoma SBO (small bowel obstruction) GERD (gastroesophageal reflux disease) Neuropathy Hyperlipidemia DM2 (diabetes mellitus, type 2) Occult blood in stools Colon polyp Brain tumor History of seizure disorder Anemia Diabetes Hypertension Surgical History Surgical History History of umbilical hernia repair History of cholecystectomy History of appendectomy History of laparoscopy H/O colonoscopy with polypectomy L4 through S1 on November 02, 2022 History of back surgery History of brain surgery Brain tumor resection, 1995 Hx of total knee arthroplasty Bilaterally Family History Family History Unknown No problems noted. Sibling Heart valve replaced CHF (congestive heart failure) Sibling Diabetes mellitus Sibling Diabetes mellitus Sibling Diabetes mellitus Mother Diabetes mellitus Grandparent Diabetes mellitus Social History Social History Social History: The patient lives home alone and has 2 children. 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 Code status full code. Smoking status: Never smoker Alcohol intake: never Substance use: never Substance use type: does not use Do You Feel Safe in your Home?: Yes Lack of Transportation: No Lack of Food: Never True Current Housing: I Have Housing Concerned About Future Housing: No Difficulty Paying Gas/Electric Bills: No Difficulty Paying for Meds: No Currently Unemployed: No Education: Bachelor's Degree Difficulty w/ Childcare or Family Care: No Living arrangements: with family Spiritual care concerns: No Meds Home Medications and Allergies Home Medications ?Medication ?Instructions ?Recorded ?Confirmed ?Type atorvastatin 40 mg tablet 40 mg PO DAILY 08/03/22 03/03/25 History multivitamin with minerals-folic 1 tablet PO DAILY 08/03/22 03/03/25 History acid 0.4 mg tablet pantoprazole 40 mg tablet,delayed 40 mg PO DAILY 08/03/22 03/03/25 History release zonisamide 100 mg capsule 200 mg PO DAILY 09/21/22 03/03/25 History lacosamide 100 mg tablet 100 mg PO DAILY 01/17/23 03/03/25 History levetiracetam 500 mg tablet 1,000 mg (2 x 500 mg) PO QAM #30 01/19/23 03/03/25 Rx (Keppra) tabs pregabalin 50 mg capsule (Lyrica) 300 mg (6 x 50 mg) BYMOUTH HS #15 01/19/23 03/03/25 Rx caps pregabalin 150 mg capsule 150 mg PO QAM 09/12/23 03/03/25 History levetiracetam 500 mg tablet 1,000 mg PO HS 11/24/24 03/03/25 History (Keppra) insulin aspart U-100 100 unit/mL 1 - 15 unit subcut TIDWMEAL 01/21/25 03/03/25 History (3 mL) subcutaneous pen (Novolog FlexPen U-100 Insulin aspart) insulin glargine 100 unit/mL (3 35 unit subcut DAILY 01/21/25 03/03/25 History mL) subcutaneous pen (Lantus Solostar U-100 Insulin) oxycodone 5 mg tablet 5 mg PO Q4H PRN pain #25 tabs 02/19/25 03/03/25 Rx losartan 25 mg tablet 25 mg PO DAILY 03/03/25 03/03/25 History Allergies Allergy/AdvReac Type Severity Reaction Status Date / Time codeine AdvReac Unknown Hyperactive Verified 03/03/25 18:34 empagliflozin (From AdvReac Unknown Other Verified 03/03/25 18:34 Jardiance) Vital Signs Vital Signs - 24 hr 03/03/25 14:32 03/03/25 16:51 03/03/25 17:58 Temperature 97.6 F Pulse Rate 88 74 71 Respiratory Rate 16 17 18 Blood Pressure 128/89 145/76 H 137/70 Pulse Oximetry 98 97 96 Oxygen Delivery Room Air 03/03/25 18:55 03/03/25 19:46 03/04/25 04:37 Temperature 97.5 F L 97.7 F Pulse Rate 68 67 Respiratory Rate 14 14 Blood Pressure 127/61 131/68 Pulse Oximetry 98 97 Oxygen Delivery Room Air 03/04/25 08:00 Temperature Pulse Rate Respiratory Rate Blood Pressure Pulse Oximetry Oxygen Delivery Room Air Exam Const: General: comfortable and no acute distress Neck: Neck: supple and no JVD Resp: Effort & Inspection: normal respiratory effort Cardio: Rate: regular rate GI: Inspection: non-distended GI Palp: Yes Soft to palpation and Yes Tenderness to palpation present (GI) (diffusely tender) Auscultation: abnormal bowel sounds (hypoactive) Skin: General skin exam: normal color and no rashes or lesions noted Neuro: Speech: normal speech Extrem: General: normal to inspection Psych: Mental Status: mental status grossly normal Results Labs 03/04/25 05:16 03/04/25 05:16 Labs: Abnormal lab results 03/03/25 03/03/25 03/03/25 Range/Units 14:38 15:04 22:19 WBC 15.1 H (4.5-10.0) K/mm3 Hgb (14.0-18.0) g/dL RDW (11.5-14.5) % Plt Count 125 L (150-375) k/mm3 MPV 11.8 H (7.4-10.4) fl Neut % (Auto) 85.9 H (45.5-73.1) % Lymph % (Auto) 7.8 L (18.3-44.2) % [place] # (Auto) 0.8 H (0.1-0.6) K/mm3 Abs Immat Gran (auto) 0.08 H (0.00-0.031) K/mm3 Absolute Neuts (auto) 13.0 H (1.3-6.7) K/mm3 Chloride 108 H (98-107) mmol/L Carbon Dioxide 20 L (22-30) mmol/L BUN 23 H (9-20) mg/dL Glucose 215 H (65-110) mg/dL POC Capillary Glucose 235 H 114 H (65-105) mg/dl Calcium (8.4-10.2) mg/dL Total Protein (6.3-8.2) g/dL Albumin (3.5-5.1) g/dL 03/04/25 Range/Units 05:16 WBC (4.5-10.0) K/mm3 Hgb 13.5 L D (14.0-18.0) g/dL RDW 14.7 H (11.5-14.5) % Plt Count 79 L (150-375) k/mm3 MPV 12.4 H (7.4-10.4) fl Neut % (Auto) (45.5-73.1) % Lymph % (Auto) (18.3-44.2) % [place] # (Auto) (0.1-0.6) K/mm3 Abs Immat Gran (auto) (0.00-0.031) K/mm3 Absolute Neuts (auto) (1.3-6.7) K/mm3 Chloride (98-107) mmol/L Carbon Dioxide (22-30) mmol/L BUN (9-20) mg/dL Glucose (65-110) mg/dL POC Capillary Glucose (65-105) mg/dl Calcium 8.3 L (8.4-10.2) mg/dL Total Protein 5.7 L (6.3-8.2) g/dL Albumin 3.3 L (3.5-5.1) g/dL Diabetes panel 03/03/25 03/04/25 Range/Units 15:04 05:16 Sodium 140 139 (137-145) mmol/L Potassium 4.2 3.8 (3.4-5.0) mmol/L Chloride 108 H 107 (98-107) mmol/L Carbon Dioxide 20 L 27 (22-30) mmol/L BUN 23 H 20 (9-20) mg/dL Creatinine 1.01 0.99 (0.7-1.3) mg/dL Glucose 215 H 88 (65-110) mg/dL Calcium 9.3 8.3 L (8.4-10.2) mg/dL AST 44 27 (17-59) U/L ALT 23 16 (6-50) U/L Alkaline Phosphatase 82 67 (38-126) U/L Total Protein 7.6 5.7 L (6.3-8.2) g/dL Albumin 4.4 3.3 L (3.5-5.1) g/dL Calcium panel 03/03/25 03/04/25 Range/Units 15:04 05:16 Calcium 9.3 8.3 L (8.4-10.2) mg/dL Albumin 4.4 3.3 L (3.5-5.1) g/dL Pituitary panel 03/03/25 03/04/25 Range/Units 15:04 05:16 Sodium 140 139 (137-145) mmol/L Potassium 4.2 3.8 (3.4-5.0) mmol/L Chloride 108 H 107 (98-107) mmol/L Carbon Dioxide 20 L 27 (22-30) mmol/L BUN 23 H 20 (9-20) mg/dL Creatinine 1.01 0.99 (0.7-1.3) mg/dL Glucose 215 H 88 (65-110) mg/dL Calcium 9.3 8.3 L (8.4-10.2) mg/dL Adrenal panel 03/03/25 03/04/25 Range/Units 15:04 05:16 Sodium 140 139 (137-145) mmol/L Potassium 4.2 3.8 (3.4-5.0) mmol/L Chloride 108 H 107 (98-107) mmol/L Carbon Dioxide 20 L 27 (22-30) mmol/L BUN 23 H 20 (9-20) mg/dL Creatinine 1.01 0.99 (0.7-1.3) mg/dL Glucose 215 H 88 (65-110) mg/dL Calcium 9.3 8.3 L (8.4-10.2) mg/dL Total Bilirubin 0.8 0.5 (0.2-1.3) mg/dL AST 44 27 (17-59) U/L ALT 23 16 (6-50) U/L Alkaline Phosphatase 82 67 (38-126) U/L Total Protein 7.6 5.7 L (6.3-8.2) g/dL Albumin 4.4 3.3 L (3.5-5.1) g/dL All other labs normal.
--- NOTE | 2025-03-04 09:54 | PM.IMPN ---
Progress Note: A&P Assessment and Plan (1) SBO (small bowel obstruction): Code(s): K56.609 - Unspecified intestinal obstruction, unspecified as to partial versus complete obstruction Status: Acute Assessment and Plan: Presented here on 03/03 with abdominal pain, nausea, vomiting, and diarrhea. CT abd/pelvis showed a small bowel obstruction with findings concerning for carcinomatosis, of findings progressed compared to previous study on 01/21/2025. He recently underwent an EGD and colonoscopy on 02/04/2025. EGD normal. Colonoscopy showed a mass and diverticulosis. Pathology from the colonoscopy showed adenocarcinoma. Plan for NG tube, bowel rest, IV fluids, and general surgery consultation. Suspect recurrent obstruction possibly due to current cancerous mass. - mild leukocytosis of 15.1 noted upon admission, suspect elevation secondary to inflammation/nausea and vomiting. Trend. - IV fluids: LR 1L bolus -> LR 100 mL/hr - NPO except ice chips, NG placed and confirmed on XR, bowel rest - check Mag, trend electrolytes and renal function - analgesics p.r.n.: Tylenol, Morphine - antiemetic p.r.n. 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 Pathology showed adenocarcinoma, suspected to be lower GI in origin. EGD and colonoscopy completed, see reports. Pathology from colonoscopy also showed adenocarcinoma. - referred to Oncology, Axel BROWN, whom he has previously seen for Hematology reasons. Has appt on 03/05 () (3) Hypertension: Qualifiers: Hypertension type: primary hypertension Qualified Code(s): I10 - Essential (primary) hypertension Code(s): I10 - Essential (primary) hypertension Status: Chronic Assessment and Plan: - chronic, currently 137/78, stable. 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 Keppra, on 1 g b.i.d.. We will continue as 1 G IV b.i.d. until no longer NPO Plan Diet: NPO except ice chips, bowel rest GI Prophylaxis: Ppi IV DVT Prophylaxis: SCDs IV fluids: 1L bolus -> 100 mL/hr Lines/Tubes: Peripheral IV, NG tube Code Status: full code Time Spent With Patient Time: 58 minutes Subjective Date/time seen: 03/04/25 09:54 Interval history: No pain or nausea. Still has NG tube in Review of Systems Review of Systems: All systems reviewed & are unremarkable except as noted in HPI and below Exam Narrative: General - Awake and alert. No acute distress Eyes - PERRLA, EOM intact ENT - No thrush, No erythema Neck - No noticeable or palpable swelling Lymph Nodes - No lymphadenopathy Cardiovascular - RRR no m/r/g, no JVD Lungs: Clear to auscultation, No wheezing, use of accessory muscles, no crackles or Skin - Skin warm and dry, no wounds or rashes Abdomen - Normal bowel sounds, abdomen soft and tender low abdomen Extremities - No edema, cyanosis or clubbing Musculoskeletal - 5/5 strength, normal range of motion, no swollen or erythematous joints. Neurological ? Alert and oriented x 3, CN 2-12 grossly intact. Psych: Normal mood and affect Objective Data Vital Signs Vital Signs: Vital Signs - 24 hr 03/03/25 14:32 03/03/25 16:51 03/03/25 17:58 Temperature 97.6 F Pulse Rate 88 74 71 Respiratory Rate 16 17 18 Blood Pressure 128/89 145/76 H 137/70 Pulse Oximetry 98 97 96 Oxygen Delivery Room Air 03/03/25 18:55 03/03/25 19:46 03/04/25 04:37 Temperature 97.5 F L 97.7 F Pulse Rate 68 67 Respiratory Rate 14 14 Blood Pressure 127/61 131/68 Pulse Oximetry 98 97 Oxygen Delivery Room Air 03/04/25 08:00 Temperature Pulse Rate Respiratory Rate Blood Pressure Pulse Oximetry Oxygen Delivery Room Air Intake/Output Intake/Output: Intake & Output 03/01/25 03/02/25 03/03/25 03/04/25 23:59 23:59 23:59 23:59 Intake Total 1100 975 Output Total 250 500 Balance 850 475 Meds/Results Medications: Active Medications Generic Name Dose Route Start Last Admin Trade Name Freq PRN Reason Stop Dose Admin Acetaminophen 650 mg 03/03/25 18:05 Acetaminophen Elixir 325 Mg/10.15 Ml Udc PO Q6H PRN Mild Pain (1-3) or Fever Dextrose 12.5 gm 03/03/25 18:09 Dextrose 50% 25 Gm/50 Ml Syringe IV PUSH PRN PRN Hypoglycemia Protocol Glucagon 1 mg 03/03/25 18:09 Glucagon For Inj 1 Mg Vial IM PRN PRN Hypoglycemia Protocol Glucose 15 gm 03/03/25 18:09 Glucose Oral Gel 15 Gm Of Glucse In 37.5 Gm Tube PO PRN PRN Hypoglycemia Protocol Hydralazine HCl 10 mg 03/03/25 20:26 Hydralazine Hcl 20 Mg/Ml Vial IV PUSH Q8H PRN Blood Pressure - High, >180/90 Lactated Ringer's 1,000 mls @ 100 mls/hr 03/03/25 18:05 03/04/25 04:42 Lr - Lactated Ringers Iv IV CONT 100 mls/hr .Q10H SILVANA Administration Dextrose 1,000 mls @ 100 mls/hr 03/03/25 18:09 Dextrose 5% 1,000 Ml IVPB PRN PRN Hypoglycemia Protocol Levetiracetam 1,000 mg in 100 mls @ 400 mls/hr 03/03/25 21:00 03/04/25 08:44 Keppra Iv IVPB 400 mls/hr Q12HR SILVANA Administration Insulin Aspart 4 - 8 units 03/04/25 00:00 03/04/25 05:47 Insulin Aspart (*Bkc) 100 Units/Ml SUB-Q Not Given Q6HR SILVANA Protocol Morphine Sulfate 2 mg 03/03/25 18:05 Morphine Sulfate (*Crx) 4 Mg/Ml Inj IV PUSH Q4H PRN Pain Rated 4-6 Morphine Sulfate 4 mg 03/03/25 18:05 03/04/25 04:41 Morphine Sulfate (*Crx) 4 Mg/Ml Inj IV PUSH 4 mg Q4H PRN Administration Pain Rated 7-10 Ondansetron HCl 4 mg 03/03/25 18:19 Ondansetron Inj 4 Mg/2 Ml Vial IV PUSH Q4H PRN Nausea Pantoprazole Sodium 40 mg 03/04/25 09:00 03/04/25 08:44 Pantoprazole Sodium Iv 40 Mg Vial IV PUSH 40 mg QAM [facility] Administration Radiology Results: ITS Impressions Abdomen/Pelvis CT 03/03/25 16:33 IMPRESSION: Small bowel obstruction with findings concerning for carcinomatosis Findings a progressed compared to the previous study Abdomen X-Ray 03/03/25 17:46 Impression: 1. No acute abnormality. Labs Labs: Laboratory Results - last 24 hr 03/03/25 03/03/25 03/03/25 14:38 15:04 15:19 WBC 15.1 H RBC 5.84 Hgb 16.7 Hct 50.5 MCV 86.5 MCH 28.6 MCHC 33.1 RDW 14.5 Plt Count 125 L MPV 11.8 H Immature Gran % (Auto) 0.5 Neut % (Auto) 85.9 H Lymph % (Auto) 7.8 L Coal % (Auto) 5.0 Eos % (Auto) 0.3 Baso % (Auto) 0.5 Lymph # (Auto) 1.18 Coal # (Auto) 0.8 H Eos # (Auto) 0.0 Baso # (Auto) 0.1 Abs Immat Gran (auto) 0.08 H Absolute Neuts (auto) 13.0 H Absolute Nucleated RBC 0.000 Total Counted Neutrophils % (Manual) Band Neutrophils % Lymphocytes % (Manual) Monocytes % (Manual) Eosinophils % (Manual) Basophils % (Manual) Nucleated RBC % 0.0 Abs Neuts (Manual) Abs Lymphs (Manual) Abs Monocytes (Manual) Absolute Eos (Manual) Abs Basophils (Manual) Platelet Estimate % Immature Plt Fraction Hypochromasia Schistocytes Sodium 140 Potassium 4.2 Chloride 108 H Carbon Dioxide 20 L Anion Gap 12 BUN 23 H Creatinine 1.01 Estim Creat Clear Calc 65 Estimated GFR > 60 Glucose 215 H POC Capillary Glucose 235 H Lactic Acid 1.5 Calcium 9.3 Magnesium 1.8 Total Bilirubin 0.8 AST 44 ALT 23 Alkaline Phosphatase 82 Total Protein 7.6 Albumin 4.4 Lipase 63 C. difficile (PCR) Negative Influenza A (RT-PCR) Negative Influenza B (RT-PCR) Negative RSV (RT-PCR) Negative SARS-CoV-2 RNA (RT-PCR) Negative 03/03/25 03/03/25 03/04/25 22:19 23:59 05:16 WBC 6.8 RBC 4.69 Hgb 13.5 L D Hct 42.0 MCV 89.6 MCH 28.8 MCHC 32.1 RDW 14.7 H Plt Count 79 L MPV 12.4 H Immature Gran % (Auto) Not Reportable Neut % (Auto) Not Reportable Lymph % (Auto) Not Reportable Coal % (Auto) Not Reportable Eos % (Auto) Not Reportable Baso % (Auto) Not Reportable Lymph # (Auto) Not Reportable Coal # (Auto) Not Reportable Eos # (Auto) Not Reportable Baso # (Auto) Not Reportable Abs Immat Gran (auto) Not Reportable Absolute Neuts (auto) Not Reportable Absolute Nucleated RBC Not Reportable Total Counted 100 Neutrophils % (Manual) 72 Band Neutrophils % 2 Lymphocytes % (Manual) 22 Monocytes % (Manual) 3 Eosinophils % (Manual) 1 Basophils % (Manual) 0 Nucleated RBC % Not Reportable Abs Neuts (Manual) 5.03 Abs Lymphs (Manual) 1.49 Abs Monocytes (Manual) 0.20 Absolute Eos (Manual) 0.06 Abs Basophils (Manual) 0.00 Platelet Estimate Decreased % Immature Plt Fraction 8.7 Hypochromasia Occasional Schistocytes None seen Sodium 139 Potassium 3.8 Chloride 107 Carbon Dioxide 27 Anion Gap 5 BUN 20 Creatinine 0.99 Estim Creat Clear Calc 57 Estimated GFR > 60 Glucose 88 POC Capillary Glucose 114 H 104 Lactic Acid Calcium 8.3 L Magnesium 1.7 Total Bilirubin 0.5 AST 27 ALT 16 Alkaline Phosphatase 67 Total Protein 5.7 L Albumin 3.3 L Lipase C. difficile (PCR) Influenza A (RT-PCR) Influenza B (RT-PCR) RSV (RT-PCR) SARS-CoV-2 RNA (RT-PCR) 10/08/25 05:45 WBC RBC Hgb Hct MCV MCH MCHC RDW Plt Count MPV Immature Gran % (Auto) Neut % (Auto) Lymph % (Auto) Coal % (Auto) Eos % (Auto) Baso % (Auto) Lymph # (Auto) Coal # (Auto) Eos # (Auto) Baso # (Auto) Abs Immat Gran (auto) Absolute Neuts (auto) Absolute Nucleated RBC Total Counted Neutrophils % (Manual) Band Neutrophils % Lymphocytes % (Manual) Monocytes % (Manual) Eosinophils % (Manual) Basophils % (Manual) Nucleated RBC % Abs Neuts (Manual) Abs Lymphs (Manual) Abs Monocytes (Manual) Absolute Eos (Manual) Abs Basophils (Manual) Platelet Estimate % Immature Plt Fraction Hypochromasia Schistocytes Sodium Potassium Chloride Carbon Dioxide Anion Gap BUN Creatinine Estim Creat Clear Calc Estimated GFR Glucose POC Capillary Glucose 90 Lactic Acid Calcium Magnesium Total Bilirubin AST ALT Alkaline Phosphatase Total Protein Albumin Lipase C. difficile (PCR) Influenza A (RT-PCR) Influenza B (RT-PCR) RSV (RT-PCR) SARS-CoV-2 RNA (RT-PCR) Quality VTE Prophylaxis VTE prophylaxis: mechanical ordered Hospitalist MIPS Advance Care Plan I have confirmed that the patient's Advanced Care Plan is present, code status is documented, or surrogate decision maker is listed in patient medical record.: Yes Medication Reconciliation I have utilized all available resources to obtain, update and review the patients current medications (includes all prescriptions, OTC, herbals, cannabis, and nutritional supplements).: Yes
[2025-03-04 12:57] VITALS: BMI 27.1
[2025-03-04 14:00] VITALS: BP 132/56; PULSE 76; RESP 14; TEMP 36.2; O2SAT 98
[2025-03-04] MEDS: DEXTROSE 50% 25 GM/50 ML SYRINGE IV PUSH (18:15)
--- NOTE | 2025-03-04 18:28 | P.CONONC_ITS ---
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 Status post biopsy of large intestine, appendiceal orifice showed adenocarcinoma. Previous biopsy of lower abdominal peritoneum and omentum showed metastatic adenocarcinoma. Recent CT scan showed small bowel obstruction with carcinomatosis and progressive disease compared to the previous study. Patient had diagnostic laparoscopy with laparoscopic incisional biopsy of peritoneum and omentum done on January 22, 2025. He is back into the hospital with abdominal discomfort and bowel obstruction. This case has been discussed in the tumor Board previously. Surgery input noted and plan for small-bowel follow-through noted. Patient has stage IV metastatic disease and would require chemotherapy but the timing of chemotherapy would depend on surgical intervention for small bowel obstruction. I would recommend MediPort placement with the surgery for bowel obstruction. I will order PET scan is as an outpatient prior to starting chemotherapy. Will check CEA today. Hopefully patient will be recover from surgery in next 3-4 weeks to start chemotherapy. HPI Data of Consult Date/Time: 03/04/25 18:28 Requesting Physician: Brandan Lamar MD Primary Care Provider: Redd De Anda MD Consult Narrative Narrative: Dane Parker is a 75 year old male with history of iron deficiency anemia and splenomegaly was last seen in the office on October 09, 2024. Patient also has a history of brain tumor status post resection in 1995, seizure disorder and was diagnosed with peritoneal carcinomatosis recently. She was admitted to the hospital initially on November 24, 2024 with small bowel obstruction. He was treated conservatively with bowel rest and IV fluid. Patient was again admitted to the hospital on January 22, 2025 with partial small-bowel obstruction. He underwent robotic assisted laparoscopic surgery on January 23, 2025. He was found to have thickening of the omentum and multiple white plaques and nodules on the omentum. Peritoneal lower abdominal biopsy showed metastatic adenocarcinoma. Large intestine and appendiceal orifice biopsy showed adenocarcinoma. EGD was performed on 03/16/2025 she came back normal. Colonoscopy was performed February 04, 2025 showed colon mass with diverticulosis without perforation. Patient now came back to the hospital on January 01, [address] abdomen and pelvis showed small bowel obstruction with findings concerning with carcinomatosis progressed compared to the previous study on January 21. NG suction tube was placed. He was only able to eat liquid and semi cystic solid diet and has lost significant amount of weight. Surgery was consulted. Plan for small-bowel follow-through noted for tomorrow. Review of Systems 2 Review of Systems: Twelve point review of system was reviewed [facility] Past Medical History Medical History History of retinal detachment Glaucoma SBO (small bowel obstruction) GERD (gastroesophageal reflux disease) Neuropathy Hyperlipidemia DM2 (diabetes mellitus, type 2) Occult blood in stools Colon polyp Brain tumor History of seizure disorder Anemia Diabetes Hypertension Surgical History Surgical History History of umbilical hernia repair History of cholecystectomy History of appendectomy History of laparoscopy H/O colonoscopy with polypectomy L4 through S1 on November 02, 2022 History of back surgery History of brain surgery Brain tumor resection, 1995 Hx of total knee arthroplasty Bilaterally Family History Family History Unknown No problems noted. Sibling Heart valve replaced CHF (congestive heart failure) Sibling Diabetes mellitus Sibling Diabetes mellitus Sibling Diabetes mellitus Mother Diabetes mellitus Grandparent Diabetes mellitus Social History Social History Social History: The patient lives home alone and has 2 children. 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 Code status full code. Smoking status: Never smoker Alcohol intake: never Substance use: never Substance use type: does not use Do You Feel Safe in your Home?: Yes Lack of Transportation: No Lack of Food: Never True Current Housing: I Have Housing Concerned About Future Housing: No Difficulty Paying Gas/Electric Bills: No Difficulty Paying for Meds: No Currently Unemployed: No Education: Bachelor's Degree Difficulty w/ Childcare or Family Care: No Living arrangements: with family Spiritual care concerns: No Meds Home Medications and Allergies Home Medications ?Medication ?Instructions ?Recorded ?Confirmed ?Type atorvastatin 40 mg tablet 40 mg PO DAILY 08/03/2212/19 History multivitamin with minerals-folic 1 tablet PO DAILY 02/1703/03/25 History acid 0.4 mg tablet pantoprazole 40 mg tablet,delayed 40 mg PO DAILY 08/0303/03/25 History release zonisamide 100 mg capsule 200 mg PO DAILY 09/21/2212/19 History lacosamide 100 mg tablet 100 mg PO DAILY 01/17/2312/19 History levetiracetam 500 mg tablet 1,000 mg (2 x 500 mg) PO Q AM #30 01/19/23 03/03/25 Rx (Keppra) tabs pregabalin 50 mg capsule (Lyrica) 300 mg (6 x 50 mg) B [facility] HS #15 01/19/23 03/03/25 Rx caps pregabalin 150 mg capsule 150 mg PO QAM 09/12/2303/03 History levetiracetam 500 mg tablet 1,000 mg PO HS 11/24/24 History (Keppra) insulin aspart U-100 100 unit/mL 1 - 15 unit subcut TI DWMEAL 01/21/25 03/03/25 History (3 mL) subcutaneous pen (Novolog FlexPen U-100 Insulin aspart) insulin glargine 100 unit/mL (3 35 unit subcut DAILY 0 01/21/25 03/03/25 History mL) subcutaneous pen (Lantus Solostar U-100 Insulin) oxycodone 5 mg tablet 5 mg PO Q4H PRN pain #25 tab s 02/19/25 03/03/25 Rx losartan 25 mg tablet 25 mg PO DAILY 03/03/2512/19 History Allergies Allergy/AdvReac Type Severity Reaction Status Date / Time codeine AdvReac Unknown Hyperactive Verified 03/03/25 18:34 [email or web address] (From AdvReac Unknown Other Verified 03/03/25 18:34 Jardiance) Vital Signs Vital Signs - 24 hr 03/03/25 18:55 03/03/25 19:46 03/04/25 04:37 Temperature 36.4 C L 36.5 C Pulse Rate 68 67 Respiratory Rate 14 14 Blood Pressure 127/61 131/68 Pulse Oximetry 98 97 Oxygen Delivery Room Air 03/04/25 08:00 03/04/25 14:00 Temperature 36.2 C L Pulse Rate 76 Respiratory Rate 14 Blood Pressure 132/56 L Pulse Oximetry 98 Oxygen Delivery Room Air Exam 2 Narrative: Lungs are clear to auscultation bilaterally Cardiovascular regular rate rhythm no murmurs Abdomen distended with decreased bowel sounds Extremities no edema Results Labs 03/04/25 05:16 03/04/25 05:16 Labs: Short CBC 03/04/25 Range/Units 05:16 WBC 6.8 (4.5-10.0) K/mm3 Hgb 13.5 L D (14.0-18.0) g/dL Hct 42.0 (42.0-52.0) % Plt Count 79 L (150-375) k/mm3 BMP 03/04/25 05:16 Sodium 139 Potassium 3.8 Chloride 107 Carbon Dioxide 27 BUN 20 Creatinine 0.99 Glucose 88 Calcium 8.3 L Liver Function 03/04/25 Range/Units 05:16 Total Bilirubin 0.5 (0.2-1.3) mg/dL AST 27 (17-59) U/L ALT 16 (6-50) U/L Alkaline Phosphatase 67 (38-126) U/L Albumin 3.3 L (3.5-5.1) g/dL
[2025-03-04] MEDS: DEXTROSE 5%/0.9% SOD CHL 1,000 ML 40 ML IV CONT (20:10)
[2025-03-04 20:25] LABS: Carcinoembryonic Antigen 1.8 ng/mL (0.0-3.0)
[2025-03-04 20:30] VITALS: PULSE 69; O2SAT 95
[2025-03-04 22:00] VITALS: BP 133/58; PULSE 69; RESP 16; TEMP 36.9; O2SAT 94
[2025-03-05] MEDS: DEXTROSE 5% 1,000 ML 1,000 ML 100 ML IVPB (01:04)
--- NOTE | 2025-03-05 01:07 | PC.NURSE ---
patient blood sugar 77, patient switched to PRN D5 at 100ml/hour per protocol
[2025-03-05 05:46] LABS: Hematocrit 42.1 % (42.0-52.0); Hemoglobin 13.7 g/dL (14.0-18.0); Immature Platelet Fraction Pct 7.6 % (0.9-11.2); Mean Corpuscular HGB Conc 32.5 g/dl (32-36); Mean Corpuscular Hemoglobin 28.8 pg (26-34); Mean Corpuscular Volume 88.6 fl (80-100); Platelet Count Result 78 k/mm3 (150-375); Red Blood Count 4.75 M/mm3 (4.6-6.20); White Blood Count 6.8 K/mm3 (4.5-10.0)
[2025-03-05 06:00] VITALS: BP 135/61; PULSE 82; RESP 14; TEMP 36.9; O2SAT 93
[2025-03-05 06:02] LABS: INR 1.1; Prothrombin Time 14.5 Seconds (11.1-14.7)
[2025-03-05 06:03] LABS: Partial Thromboplastin Time 41.7 Seconds (22.3-36.8)
[2025-03-05 06:08] LABS: Alanine Aminotransferase 15 U/L (6-50); Albumin Level 3.3 g/dL (3.5-5.1); Alkaline Phosphatase 85 U/L (38-126); Anion Gap 6 mmol/L (4-12); Aspartate Amino Transferase 28 U/L (17-59); Bilirubin,Total 0.6 mg/dL (0.2-1.3); Blood Urea Nitrogen 16 mg/dL (9-20); Calcium 8.4 mg/dL (8.4-10.2); Carbon Dioxide 27 mmol/L (22-30); Chloride 107 mmol/L (98-107); Estimated CRCL calculation 59 ml/min; Estimated Glomerular Filt Rate > 60; Glucose 89 mg/dL (65-110); Potassium 3.6 mmol/L (3.4-5.0); Sodium 140 mmol/L (137-145); Total Protein 5.9 g/dL (6.3-8.2)
[2025-03-05 06:10] LABS: Prealbumin 20.0 mg/dL (17.6-36.0)
--- NOTE | 2025-03-05 06:26 | P.CDI_ITS ---
CDI Query Clarification Request BMI: 27.2 Nutritional Diagnostic Statement: Please refer to the comprehensive nutrition assessment for further information. If you agree with diagnosis of Severe protein calorie malnutrition related to chronic loss of appetite from colon cancer as evidenced by weight loss 10%/1 month, 18%/6 months; intakes <75% needs >1 month; moderate muscle wasting and fat loss. Please specify severity if known: * Mild * Moderate * Severe * Other/Unknown <Alka Neal RN - Last Filed: 03/05/25 06:27> Clarified Diagnosis Clarified Diagnosis: Severe protein/calorie malnutrition, 21 pound weight loss in a month and 40 pounds in 6 months. <Hailey Singer APRN - Last Filed: 03/05/25 18:29>
[2025-03-05 06:32] LABS: Ferritin 30.00 ng/mL (11.1-264)
[2025-03-05] MEDS: PANTOPRAZOLE SODIUM IV 40 MG VIAL IV PUSH (08:33)
[2025-03-05] MEDS: levETIRAcetam 1000MG/NACL100ML 1,000 MG/100 ML BAG 400 MG IVPB ×2 (08:35→21:39)
[2025-03-05] MEDS: ONDANSETRON INJ 4 MG/2 ML VIAL IV PUSH (11:14)
[2025-03-05] MEDS: MORPHINE SULFATE (*CRX) 4 MG/ML INJ IV PUSH ×2 (11:14→16:24)
--- NOTE | 2025-03-05 11:50 | PM.IMPN ---
Progress Note: A&P Assessment and Plan (1) SBO (small bowel obstruction): Code(s): K56.609 - Unspecified intestinal obstruction, unspecified as to partial versus complete obstruction Status: Acute Assessment and Plan: Presented here on 03/03 with abdominal pain, nausea, vomiting, and diarrhea. CT abd/pelvis showed a small bowel obstruction with findings concerning for carcinomatosis, of findings progressed compared to previous study on 01/21/2025. He recently underwent an EGD and colonoscopy on 02/04/2025. EGD normal. Colonoscopy showed a mass and diverticulosis. Pathology from the colonoscopy showed adenocarcinoma. Plan for NG tube, bowel rest, IV fluids, and general surgery consultation. Suspect recurrent obstruction possibly due to current cancerous mass. WBC elevated to 15.1 on admission, normalized PLAN Continue fluids NPO except ice chips NG tube placed and confirmed on XR, bowel rest Follow potassium, magnesium, renal function analgesics p.r.n.: Tylenol, Morphine antiemetic p.r.n. 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 Pathology showed adenocarcinoma, suspected to be lower GI in origin. EGD and colonoscopy completed, see reports. Pathology from colonoscopy also showed adenocarcinoma. - referred to Oncology, Axel BROWN, whom he has previously seen for Hematology reasons. Had an appointment 03/05, will need to be rescheduled (3) Hypertension: Qualifiers: Hypertension type: primary hypertension Qualified Code(s): I10 - Essential (primary) hypertension Code(s): I10 - Essential (primary) hypertension Status: Chronic Assessment and Plan: - chronic, currently 137/78, stable. 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 Keppra, on 1 g b.i.d.. We will continue as 1 G IV b.i.d. until no longer NPO Plan Diet: NPO except ice chips, bowel rest GI Prophylaxis: Ppi IV DVT Prophylaxis: SCDs IV fluids: 1L bolus -> 100 mL/hr Lines/Tubes: Peripheral IV, NG tube Code Status: full code Time Spent With Patient Time: 58 minutes Subjective Date/time seen: 03/05/25 11:50 Interval history: Having pain this morning after positioning for small bowel xray No nausea, has NG tube Oncology consulted Review of Systems Review of Systems: All systems reviewed & are unremarkable except as noted in HPI and below Exam Narrative: General - Awake and alert. No acute distress Eyes - PERRLA, EOM intact ENT - No thrush, No erythema Neck - No noticeable or palpable swelling Lymph Nodes - No lymphadenopathy Cardiovascular - RRR no m/r/g, no JVD Lungs: Clear to auscultation, No wheezing, use of accessory muscles, no crackles or Skin - Skin warm and dry, no wounds or rashes Abdomen - Normal bowel sounds, abdomen soft and tender low abdomen Extremities - No edema, cyanosis or clubbing Musculoskeletal - 5/5 strength, normal range of motion, no swollen or erythematous joints. Neurological ? Alert and oriented x 3, CN 2-12 grossly intact. Psych: Normal mood and affect Objective Data Vital Signs Vital Signs: Vital Signs - 24 hr 03/04/25 14:00 03/04/25 20:30 03/04/25 22:00 Temperature 97.1 F L 98.4 F Pulse Rate 76 69 69 Respiratory Rate 14 16 Blood Pressure 132/56 L 133/58 L Pulse Oximetry 98 95 94 Oxygen Delivery Room Air 03/05/25 06:00 03/05/25 09:00 Temperature 98.4 F Pulse Rate 82 Respiratory Rate 14 Blood Pressure 135/61 Pulse Oximetry 93 Oxygen Delivery Room Air Intake/Output Intake/Output: Intake & Output 03/02/25 03/03/25 03/04/25 03/05/25 23:59 23:59 23:59 23:59 Intake Total 1100 2715.0 194.0 Output Total 250 1250 400 Balance 850 1465.0 -206.0 Meds/Results Medications: Active Medications Generic Name Dose Route Start Last Admin Trade Name Freq PRN Reason Stop Dose Admin Acetaminophen 650 mg 03/03/25 18:05 Acetaminophen Elixir 325 Mg/10.15 Ml Udc PO Q6H PRN Mild Pain (1-3) or Fever Dextrose 12.5 gm 03/03/25 18:09 03/04/25 18:15 Dextrose 50% 25 Gm/50 Ml Syringe IV PUSH 12.5 gm PRN PRN Administration Hypoglycemia Protocol Glucagon 1 mg 03/03/25 18:09 Glucagon For Inj 1 Mg Vial IM PRN PRN Hypoglycemia Protocol Glucose 15 gm 03/03/25 18:09 Glucose Oral Gel 15 Gm Of Glucse In 37.5 Gm Tube PO PRN PRN Hypoglycemia Protocol Hydralazine HCl 10 mg 03/03/25 20:26 Hydralazine Hcl 20 Mg/Ml Vial IV PUSH Q8H PRN Blood Pressure - High, >180/90 Lactated Ringer's 1,000 mls @ 100 mls/hr 03/03/25 18:05 03/04/25 20:30 Lr - Lactated Ringers Iv IV CONT Infused .Q10H SIL[facility]NA Infusion Dextrose 1,000 mls @ 100 mls/hr 03/03/25 18:09 03/05/25 01:04 Dextrose 5% 1,000 Ml IVPB 100 mls/hr PRN PRN Administration Hypoglycemia Protocol Levetiracetam 1,000 mg in 100 mls @ 400 mls/hr 03/03/25 21:00 03/05/25 08:35 Keppra Iv IVPB 400 mls/hr Q12HR [facility] Administration Dextrose/Sodium Chloride 1,000 mls @ 40 mls/hr 03/04/25 19:50 03/05/25 01:01 Dextrose 5% Sodium Chloride 0.9% IV CONT Infused .Q24H [facility] Infusion Insulin Aspart 4 - 8 units 03/04/25 00:00 03/05/25 06:31 Insulin Aspart (*Bkc) 100 Units/Ml SUB-Q Not Given Q6HR [facility] Protocol Morphine Sulfate 2 mg 03/03/25 18:05 Morphine Sulfate (*Crx) 4 Mg/Ml Inj IV PUSH Q4H PRN Pain Rated 4-6 Morphine Sulfate 4 mg 03/03/25 18:05 03/05/25 11:14 Morphine Sulfate (*Crx) 4 Mg/Ml Inj IV PUSH 4 mg Q4H PRN Administration Pain Rated 7-10 Ondansetron HCl 4 mg 03/03/25 18:19 03/05/25 11:14 Ondansetron Inj 4 Mg/2 Ml Vial IV PUSH 4 mg Q4H PRN Administration Nausea Pantoprazole Sodium 40 mg 03/04/25 09:00 03/05/25 08:33 Pantoprazole Sodium Iv 40 Mg Vial IV PUSH 40 mg QAM SILVANA Administration Radiology Results: ITS Impressions Abdomen/Pelvis CT 03/03/25 16:33 IMPRESSION: Small bowel obstruction with findings concerning for carcinomatosis Findings a progressed compared to the previous study Abdomen X-Ray 03/03/25 17:46 Impression: 1. No acute abnormality. Small Bowel X-Ray 03/05/25 11:13 IMPRESSION: 1. Normal small bowel transit time to the colon of 60-90 minutes with no dilated bowel to suggest obstruction. Labs Labs: Laboratory Results - last 24 hr 03/04/25 03/04/25 03/04/25 05:16 11:34 18:08 WBC RBC Hgb Hct MCV MCH MCHC RDW Plt Count MPV % Immature Plt Fraction PT INR APTT Sodium Potassium Chloride Carbon Dioxide Anion Gap BUN Creatinine Estim Creat Clear Calc Estimated GFR Glucose POC Capillary Glucose 81 65 Calcium Ferritin Total Bilirubin AST ALT Alkaline Phosphatase Total Protein Albumin Prealbumin Carcinoembryonic Ag 1.8 Blood Type Antibody Screen 03/04/25 03/05/25 03/05/25 19:27 00:41 04:11 WBC RBC Hgb Hct MCV MCH MCHC RDW Plt Count MPV % Immature Plt Fraction PT INR APTT Sodium Potassium Chloride Carbon Dioxide Anion Gap BUN Creatinine Estim Creat Clear Calc Estimated GFR Glucose POC Capillary Glucose 85 77 97 Calcium Ferritin Total Bilirubin AST ALT Alkaline Phosphatase Total Protein Albumin Prealbumin Carcinoembryonic Ag Blood Type Antibody Screen 03/05/25 04:48 WBC 6.8 RBC 4.75 Hgb 13.7 L Hct 42.1 MCV 88.6 MCH 28.8 MCHC 32.5 RDW 14.2 Plt Count 78 L MPV 11.9 H % Immature Plt Fraction 7.6 PT 14.5 INR 1.1 APTT 41.7 H Sodium 140 Potassium 3.6 Chloride 107 Carbon Dioxide 27 Anion Gap 6 BUN 16 Creatinine 0.95 Estim Creat Clear Calc 59 Estimated GFR > 60 Glucose 89 POC Capillary Glucose Calcium 8.4 Ferritin 30.00 Total Bilirubin 0.6 AST 28 ALT 15 Alkaline Phosphatase 85 Total Protein 5.9 L Albumin 3.3 L Prealbumin 20.0 Carcinoembryonic Ag Blood Type O Positive Antibody Screen Negative Quality VTE Prophylaxis VTE prophylaxis: mechanical ordered Hospitalist [facility] Advance Care Plan I have confirmed that the patient's Advanced Care Plan is present, code status is documented, or surrogate decision maker is listed in patient medical record.: Yes Medication Reconciliation I have utilized all available resources to obtain, update and review the patients current medications (includes all prescriptions, OTC, herbals, cannabis, and nutritional supplements).: Yes
--- NOTE | 2025-03-05 12:15 | P.PNGS_ITS ---
Progress Note: A&P Assessment and Plan (1) SBO (small bowel obstruction): Code(s): K56.609 - Unspecified intestinal obstruction, unspecified as to partial versus complete obstruction Status: Acute Assessment and Plan: * Small bowel series showed normal small bowel transit time to the colon of 60- 90 minutes with no dilated bowel to suggest obstruction. If patient is able to have a bowel movement, we will consider pulling the NG tube and introducing clear liquids. * Surgeon discussed the possibility of surgical intervention for small bowel obstructions with the patient. If he had colon surgery this week, he would need at least 4 weeks to recover before starting chemo. If port placed and no colon surgery, could likely start chemo next week or the following. Patient would like to weigh these options and discuss with his family before moving forward. (2) Metastatic adenocarcinoma to intra-abdominal site: Code(s): C79.89 - Secondary malignant neoplasm of other specified sites Status: Acute Assessment and Plan: Oncology consulted. Recommending chemotherapy, but timing of chemotherapy would depend on surgical intervention for small bowel obstruction. Recommending MediPort placement. Oncology will order PET scan for outpatient prior to starti ng chemotherapy. CEA level obtained a normal at 1.8. Plan Discussed patient's case and plan of care with Dr. Tesfaye. Subjective Subjective Date/Time Seen: 03/05/25 12:15 Patient reports: no new complaints Interval history: Patient doing about the same today. Still having abdominal pain. SBS today. NG tube with 1050 mL out yesterday. No BM or flatus since yesterday. Exam Const: General: comfortable and no acute distress GI: Inspection: distended GI Palp: Yes Soft to palpation and Yes Tenderness to palpation present (GI) (diffusely) Auscultation: normal bowel sounds Objective Data Vital Signs Vital Signs: Vital Signs - 24 hr 03/04/25 14:00 03/04/25 20:30 03/04/25 22:00 Temperature 97.1 F L 98.4 F Pulse Rate 76 69 69 Respiratory Rate 14 16 Blood Pressure 132/56 L 133/58 L Pulse Oximetry 98 95 94 Oxygen Delivery Room Air 03/05/25 06:00 03/05/25 09:00 Temperature 98.4 F Pulse Rate 82 Respiratory Rate 14 Blood Pressure 135/61 Pulse Oximetry 93 Oxygen Delivery Room Air Intake/Output Intake/Output: Intake & Output 03/02/25 03/03/25 03/04/25 03/05/25 23:59 23:59 23:59 23:59 Intake Total 1100 2715.0 194.0 Output Total 250 1250 400 Balance 850 1465.0 -206.0 Meds/Results Medications: Active Medications Generic Name Dose Route Start Last Admin Trade Name Freq PRN Reason Stop Dose Admin Acetaminophen 650 mg 03/03/25 18:05 Acetaminophen Elixir 325 Mg/10.15 Ml Udc PO Q6H PRN Mild Pain (1-3) or Fever Dextrose 12.5 gm 03/03/25 18:09 03/04/25 18:15 Dextrose 50% 25 Gm/50 Ml Syringe IV PUSH 12.5 gm PRN PRN Administration Hypoglycemia Protocol Glucagon 1 mg 03/03/25 18:09 Glucagon For Inj 1 Mg Vial IM PRN PRN Hypoglycemia Protocol Glucose 15 gm 03/03/25 18:09 Glucose Oral Gel 15 Gm Of Glucse In 37.5 Gm Tube PO PRN PRN Hypoglycemia Protocol Hydralazine HCl 10 mg 03/03/25 20:26 Hydralazine Hcl 20 Mg/Ml Vial IV PUSH Q8H PRN Blood Pressure - High, >180/90 Lactated Ringer's 1,000 mls @ 100 mls/hr 03/03/25 18:05 03/04/25 20:30 Lr - Lactated Ringers Iv IV CONT Infused .Q10H [facility] Infusion Dextrose 1,000 mls @ 100 mls/hr 03/03/25 18:09 03/05/25 01:04 Dextrose 5% 1,000 Ml IVPB 100 mls/hr PRN PRN Administration Hypoglycemia Protocol Levetiracetam 1,000 mg in 100 mls @ 400 mls/hr 03/03/25 21:00 03/05/25 08:35 Keppra Iv IVPB 400 mls/hr Q12HR [facility] Administration Dextrose/Sodium Chloride 1,000 mls @ 40 mls/hr 03/04/25 19:50 03/05/25 01:01 Dextrose 5% Sodium Chloride 0.9% IV CONT Infused .Q24H [facility] Infusion Insulin Aspart 4 - 8 units 03/04/25 00:00 03/05/25 06:31 Insulin Aspart (*Bkc) 100 Units/Ml SUB-Q Not Given Q6HR [facility] Protocol Morphine Sulfate 2 mg 03/03/25 18:05 Morphine Sulfate (*Crx) 4 Mg/Ml Inj IV PUSH Q4H PRN Pain Rated 4-6 Morphine Sulfate 4 mg 03/03/25 18:05 03/05/25 11:14 Morphine Sulfate (*Crx) 4 Mg/Ml Inj IV PUSH 4 mg Q4H PRN Administration Pain Rated 7-10 Ondansetron HCl 4 mg 03/03/25 18:19 03/05/25 11:14 Ondansetron Inj 4 Mg/2 Ml Vial IV PUSH 4 mg Q4H PRN Administration Nausea Pantoprazole Sodium 40 mg 03/04/25 09:00 03/05/25 08:33 Pantoprazole Sodium Iv 40 Mg Vial IV PUSH 40 mg QAM SILVANA Administration Radiology Results: ITS Impressions Abdomen/Pelvis CT 03/03/25 16:33 IMPRESSION: Small bowel obstruction with findings concerning for carcinomatosis Findings a progressed compared to the previous study Abdomen X-Ray 03/03/25 17:46 Impression: 1. No acute abnormality. Small Bowel X-Ray 03/05/25 11:13 IMPRESSION: 1. Normal small bowel transit time to the colon of 60-90 minutes with no dilated bowel to suggest obstruction. Labs Labs: Laboratory Results - last 24 hr 03/04/25 03/04/25 03/04/25 05:16 18:08 19:27 WBC RBC Hgb Hct MCV MCH MCHC RDW Plt Count MPV % Immature Plt Fraction PT INR APTT Sodium Potassium Chloride Carbon Dioxide Anion Gap BUN Creatinine Estim Creat Clear Calc Estimated GFR Glucose POC Capillary Glucose 65 85 Calcium Ferritin Total Bilirubin AST ALT Alkaline Phosphatase Total Protein Albumin Prealbumin Carcinoembryonic Ag 1.8 Blood Type Antibody Screen 03/05/25 03/05/25 03/05/25 00:41 04:11 04:48 WBC 6.8 RBC 4.75 Hgb 13.7 L Hct 42.1 MCV 88.6 MCH 28.8 MCHC 32.5 RDW 14.2 Plt Count 78 L MPV 11.9 H % Immature Plt Fraction 7.6 PT 14.5 INR 1.1 APTT 41.7 H Sodium 140 Potassium 3.6 Chloride 107 Carbon Dioxide 27 Anion Gap 6 BUN 16 Creatinine 0.95 Estim Creat Clear Calc 59 Estimated GFR > 60 Glucose 89 POC Capillary Glucose 77 97 Calcium 8.4 Ferritin 30.00 Total Bilirubin 0.6 AST 28 ALT 15 Alkaline Phosphatase 85 Total Protein 5.9 L Albumin 3.3 L Prealbumin 20.0 Carcinoembryonic Ag Blood Type O Positive Antibody Screen Negative 03/05/25 12:04 WBC RBC Hgb Hct MCV MCH MCHC RDW Plt Count MPV % Immature Plt Fraction PT INR APTT Sodium Potassium Chloride Carbon Dioxide Anion Gap BUN Creatinine Estim Creat Clear Calc Estimated GFR Glucose POC Capillary Glucose 120 H Calcium Ferritin Total Bilirubin AST ALT Alkaline Phosphatase Total Protein Albumin Prealbumin Carcinoembryonic Ag Blood Type Antibody Screen
[2025-03-05 14:00] VITALS: BP 133/65; PULSE 76; RESP 14; TEMP 36.4; O2SAT 96
[2025-03-05] MEDS: LACTATED RINGERS 1,000 ML 100 ML IV CONT (18:44)
[2025-03-05 19:49] VITALS: BP 136/59; PULSE 78; RESP 14; TEMP 36.4; O2SAT 95
[2025-03-06] VITALS (11 sets, daily range): BP systolic 126–166; BP diastolic 56–76; PULSE 66–94; RESP 14–18; TEMP 36.6–36.9; O2SAT 91–98
[2025-03-06] MEDS: MORPHINE SULFATE (*CRX) 4 MG/ML INJ IV PUSH (00:24)
[2025-03-06] MEDS: LACTATED RINGERS 1,000 ML 100 ML IV CONT ×3 (04:11→22:56)
[2025-03-06] MEDS: PANTOPRAZOLE SODIUM IV 40 MG VIAL IV PUSH (08:59)
[2025-03-06] MEDS: levETIRAcetam 1000MG/NACL100ML 1,000 MG/100 ML BAG 400 MG IVPB (08:59)
[2025-03-06] MEDS: MORPHINE SULFATE (*CRX) 4 MG/ML INJ 2 MG IV PUSH ×2 (09:04→22:39)
--- NOTE | 2025-03-06 10:29 | PM.PNGS ---
Progress Note: A&P Assessment and Plan (1) Metastatic adenocarcinoma to intra-abdominal site: Code(s): C79.89 - Secondary malignant neoplasm of other specified sites Status: Acute Assessment and Plan: Patient presented with partial obstruction but appears to be resolved currently. 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 Since he is not completely obstructed, patient feels comfortable proceeding with Port placement today so that chemotherapy can be started soon. There is a good chance obstructive symptoms will improve once treatment is initiated. I have recommended Port-a-cath placement today. Will start full liquid diet after procedure. Could be discharged if tolerating full liquid diet. F/u with Dr. Reyna for further treatment planning. (2) SBO (small bowel obstruction): Code(s): K56.609 - Unspecified intestinal obstruction, unspecified as to partial versus complete obstruction Status: Acute Subjective Subjective Date/Time Seen: 03/06/25 10:29 Interval history: Patient tolerated clear liquids yesterday. Bowels moving with diarrhea since the contrast study yesterday. Exam GI: Inspection: non-distended GI Palp: Yes Soft to palpation and Yes Tenderness to palpation present (GI) (mild RLQ) Auscultation: normal bowel sounds Objective Data Vital Signs Vital Signs: Vital Signs - 24 hr 03/05/25 14:00 03/05/25 19:49 03/06/25 03:46 Temperature 97.5 F L 97.5 F L 97.9 F Pulse Rate 76 78 68 Respiratory Rate 14 14 14 Blood Pressure 133/65 136/59 L 141/61 H Pulse Oximetry 96 95 96 Intake/Output Intake/Output: Intake & Output 03/03/25 03/04/25 03/05/25 03/06/25 23:59 23:59 23:59 23:59 Intake Total 1100 2715.0 984.0 945 Output Total 250 1250 1100 Balance 850 1465.0 -116.0 945 Meds/Results Medications: Active Medications Generic Name Dose Route Start Last Admin Trade Name Freq PRN Reason Stop Dose Admin Acetaminophen 650 mg 03/03/25 18:05 Acetaminophen Elixir 325 Mg/10.15 Ml Udc PO Q6H PRN Mild Pain (1-3) or Fever Dextrose 12.5 gm 03/03/25 18:09 03/04/25 18:15 Dextrose 50% 25 Gm/50 Ml Syringe IV PUSH 12.5 gm PRN PRN Administration Hypoglycemia Protocol Glucagon 1 mg 03/03/25 18:09 Glucagon For Inj 1 Mg Vial IM PRN PRN Hypoglycemia Protocol Glucose 15 gm 03/03/25 18:09 Glucose Oral Gel 15 Gm Of Glucse In 37.5 Gm Tube PO PRN PRN Hypoglycemia Protocol Hydralazine HCl 10 mg 03/03/25 20:26 Hydralazine Hcl 20 Mg/Ml Vial IV PUSH Q8H PRN Blood Pressure - High, >180/90 Lactated Ringer's 1,000 mls @ 100 mls/hr 03/03/25 18:05 03/06/25 04:11 Lr - Lactated Ringers Iv IV CONT 100 mls/hr .Q10H [facility] Administration Dextrose 1,000 mls @ 100 mls/hr 03/03/25 18:09 03/05/25 01:04 Dextrose 5% 1,000 Ml IVPB 100 mls/hr PRN PRN Administration Hypoglycemia Protocol Levetiracetam 1,000 mg in 100 mls @ 400 mls/hr 03/03/25 21:00 03/06/25 08:59 Keppra Iv IVPB 400 mls/hr Q12HR [facility] Administration Dextrose/Sodium Chloride 1,000 mls @ 40 mls/hr 03/04/25 19:50 03/05/25 01:01 Dextrose 5% Sodium Chloride 0.9% IV CONT Infused .Q24H [facility] Infusion Insulin Aspart 4 - 8 units 03/04/25 00:00 03/06/25 08:58 Insulin Aspart (*Bkc) 100 Units/Ml SUB-Q Not Given Q6HR [facility] Protocol Morphine Sulfate 2 mg 03/03/25 18:05 03/06/25 09:04 Morphine Sulfate (*Crx) 4 Mg/Ml Inj IV PUSH 2 mg Q4H PRN Administration Pain Rated 4-6 Morphine Sulfate 4 mg 03/03/25 18:05 03/06/25 00:24 Morphine Sulfate (*Crx) 4 Mg/Ml Inj IV PUSH 4 mg Q4H PRN Administration Pain Rated 7-10 Ondansetron HCl 4 mg 03/03/25 18:19 03/05/25 11:14 Ondansetron Inj 4 Mg/2 Ml Vial IV PUSH 4 mg Q4H PRN Administration Nausea Pantoprazole Sodium 40 mg 03/04/25 09:00 03/06/25 08:59 Pantoprazole Sodium Iv 40 Mg Vial IV PUSH 40 mg QAM SILVANA Administration Radiology Results: ITS Impressions Abdomen/Pelvis CT 03/03/25 16:33 IMPRESSION: Small bowel obstruction with findings concerning for carcinomatosis Findings a progressed compared to the previous study Abdomen X-Ray 03/03/25 17:46 Impression: 1. No acute abnormality. Small Bowel X-Ray 03/05/25 11:13 IMPRESSION: 1. Normal small bowel transit time to the colon of 60-90 minutes with no dilated bowel to suggest obstruction. Labs Labs: Laboratory Results - last 24 hr 03/05/25 03/05/25 03/06/25 12:04 17:01 00:33 POC Capillary Glucose 120 H 143 H 158 H 03/06/25 08:12 POC Capillary Glucose 136 H
[2025-03-06 11:25] LABS: Hematocrit 40.6 % (42.0-52.0); Hemoglobin 13.4 g/dL (14.0-18.0); Immature Granulocyte Percent A 0.3 % (0-0.5); Immature Platelet Fraction Pct 6.1 % (0.9-11.2); Lymphocytes Absolute Auto 1.25 K/mm3 (0.9-3.2); Mean Corpuscular HGB Conc 33.0 g/dl (32-36); Mean Corpuscular Hemoglobin 28.6 pg (26-34); Mean Corpuscular Volume 86.8 fl (80-100); Nucleated Red Blood Cells Absolute Auto 0.000 K/mm3 (0.0-0.012); Nucleated Red Blood Cells Perc 0.0 % (0.0-0.2); Platelet Count Result 80 k/mm3 (150-375); Red Blood Count 4.68 M/mm3 (4.6-6.20); White Blood Count 6.3 K/mm3 (4.5-10.0)
[2025-03-06 11:55] LABS: Anion Gap 5 mmol/L (4-12); Blood Urea Nitrogen 15 mg/dL (9-20); Calcium 8.4 mg/dL (8.4-10.2); Carbon Dioxide 28 mmol/L (22-30); Chloride 107 mmol/L (98-107); Estimated CRCL calculation 62 ml/min; Estimated Glomerular Filt Rate > 60; Glucose 140 mg/dL (65-110); Magnesium 1.8 mg/dL (1.6-2.3); Potassium 4.1 mmol/L (3.4-5.0); Sodium 140 mmol/L (137-145)
--- NOTE | 2025-03-06 12:01 | P.PNIM_ITS ---
Progress Note: A&P Assessment and Plan (1) SBO (small bowel obstruction): Code(s): K56.609 - Unspecified intestinal obstruction, unspecified as to partial versus complete obstruction Status: Acute Assessment and Plan: Presented here on 03/03 with abdominal pain, nausea, vomiting, and diarrhea. CT abd/pelvis showed a small bowel obstruction with findings concerning for carcinomatosis, of findings progressed compared to previous study on 01/21/2025. He recently underwent an EGD and colonoscopy on 02/04/2025. EGD normal. Colonoscopy showed a mass and diverticulosis. Pathology from the colonoscopy showed adenocarcinoma. Plan for NG tube, bowel rest, IV fluids, and general surgery consultation. Suspect recurrent obstruction possibly due to current cancerous mass. WBC elevated to 15.1 on admission, normalized PLAN Continue fluids Tolerating liquids. NPO for port placement today NG tube removed by surgery. Doing well Follow BMP, mag analgesics p.r.n.: Tylenol, Morphine antiemetic p.r.n. 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 Pathology showed adenocarcinoma, suspected to be lower GI in origin. EGD and colonoscopy completed, see reports. Pathology from colonoscopy also showed adenocarcinoma. - referred to Oncology, Axel BROWN, whom he has previously seen for Hematology reasons. Had an appointment 03/05, will need to be rescheduled (3) Hypertension: Qualifiers: Hypertension type: primary hypertension Qualified Code(s): I10 - Essential (primary) hypertension Code(s): I10 - Essential (primary) hypertension Status: Chronic Assessment and Plan: - chronic, currently 137/78, stable. - hold home medications while NPO: losartan - hydralazine prn for BP >180/90 - monitor (4) DM2 (diabetes mellitus, type 2): Qualifiers: Diabetes mellitus complication status: without complication Diabetes mellitus detention insulin use: with detention use Qualified Code(s): E11.9 - Type 2 diabetes mellitus without complications; Z79.4 - long-term (current) use of insulin Code(s): E11.9 - Type 2 diabetes mellitus without complications Status: Chronic Assessment and Plan: - hypoglycemia protocol - POC blood glucose Q6H while NPO - home medication: hold home Novlog and Lantus - correct regimen ordered - high dose Q6H, based off BMI - A1C 6.9% on 11/25/2024 (5) Seizures: Code(s): R56.9 - Unspecified convulsions Status: Acute Assessment and Plan: Last seizure in 2021 due to Jardiance, before that his last seizure was in 2001 - home p.o. Keppra, on 1 g b.i.d.. Changed to 1 G IV b.i.d.. Resume PO in AM Plan Diet: NPO except ice chips, bowel rest GI Prophylaxis: Ppi IV DVT Prophylaxis: SCDs IV fluids: 1L bolus -> 100 mL/hr Lines/Tubes: Peripheral IV, NG tube Code Status: full code Time Spent With Patient Time: 57 minutes Subjective Date/time seen: 03/06/25 12:01 Interval history: Planning a port today with surgery NG tube removed. Still passing gas/loose stool overnight. No nausea or abdominal pain Discharge when tolerating full liquids post procedure Review of Systems Review of Systems: All systems reviewed & are unremarkable except as noted in HPI and below Exam Narrative: General - Awake and alert. No acute distress Eyes - PERRLA, EOM intact ENT - No thrush, No erythema Neck - No noticeable or palpable swelling Lymph Nodes - No lymphadenopathy Cardiovascular - RRR no m/r/g, no JVD Lungs: Clear to auscultation, No wheezing, use of accessory muscles, no crackles or Skin - Skin warm and dry, no wounds or rashes Abdomen - Normal bowel sounds, abdomen soft and tender low abdomen Extremities - No edema, cyanosis or clubbing Musculoskeletal - 5/5 strength, normal range of motion, no swollen or erythematous joints. Neurological ? Alert and oriented x 3, CN 2-12 grossly intact. Psych: Normal mood and affect Objective Data Vital Signs Vital Signs: Vital Signs - 24 hr 03/05/25 14:00 03/05/25 19:49 03/06/25 03:46 Temperature 97.5 F L 97.5 F L 97.9 F Pulse Rate 76 78 68 Respiratory Rate 14 14 14 Blood Pressure 133/65 136/59 L 141/61 H Pulse Oximetry 96 95 96 Intake/Output Intake/Output: Intake & Output 10/0703/04/25 03/05/25 03/06/25 23:59 23:59 23:59 23:59 Intake Total 1100 2715.0 984.0 945 Output Total 250 1250 1100 Balance 850 1465.0 -116.0 945 Meds/Results Medications: Active Medications Generic Name Dose Route Start Last Admin Trade Name Freq PRN Reason Stop Dose Admin Acetaminophen 650 mg 03/03/25 18:05 Acetaminophen Elixir 325 Mg/10.15 Ml Udc PO Q6H PRN Mild Pain (1-3) or Fever Dextrose 12.5 gm 03/03/25 18:09 03/04/25 18:15 Dextrose 50% 25 Gm/50 Ml Syringe IV PUSH 12.5 gm PRN PRN Administration Hypoglycemia Protocol Glucagon 1 mg 03/03/25 18:09 Glucagon For Inj 1 Mg Vial IM PRN PRN Hypoglycemia Protocol Glucose 15 gm 03/03/25 18:09 Glucose Oral Gel 15 Gm Of Glucse In 37.5 Gm Tube PO PRN PRN Hypoglycemia Protocol Hydralazine HCl 10 mg 03/03/25 20:26 Hydralazine Hcl 20 Mg/Ml Vial IV PUSH Q8H PRN Blood Pressure - High, >180/90 Lactated Ringer's 1,000 mls @ 100 mls/hr 03/03/25 18:05 03/06/25 04:11 Lr - Lactated Ringers Iv IV CONT 100 mls/hr .Q10H SILVANA Administration Dextrose 1,000 mls @ 100 mls/hr 03/03/25 18:09 03/05/25 01:04 Dextrose 5% 1,000 Ml IVPB 100 mls/hr PRN PRN Administration Hypoglycemia Protocol Levetiracetam 1,000 mg in 100 mls @ 400 mls/hr 03/03/25 21:00 03/06/25 08:59 Keppra Iv IVPB 400 mls/hr Q12HR SILVANA Administration Dextrose/Sodium Chloride 1,000 mls @ 40 mls/hr 03/04/25 19:50 03/05/25 01:01 Dextrose 5% Sodium Chloride 0.9% IV CONT Infused .Q24H SILVANA Infusion Insulin Aspart 4 - 8 units 03/04/25 00:00 03/06/25 11:58 Insulin Aspart (*Bkc) 100 Units/Ml SUB-Q Not Given Q6HR SILVANA Protocol Morphine Sulfate 2 mg 03/03/25 18:05 03/06/25 09:04 Morphine Sulfate (*Crx) 4 Mg/Ml Inj IV PUSH 2 mg Q4H PRN Administration Pain Rated 4-6 Morphine Sulfate 4 mg 03/03/25 18:05 03/06/25 00:24 Morphine Sulfate (*Crx) 4 Mg/Ml Inj IV PUSH 4 mg Q4H PRN Administration Pain Rated 7-10 Ondansetron HCl 4 mg 03/03/25 18:19 03/05/25 11:14 Ondansetron Inj 4 Mg/2 Ml Vial IV PUSH 4 mg Q4H PRN Administration Nausea Pantoprazole Sodium 40 mg 03/04/25 09:00 03/06/25 08:59 Pantoprazole Sodium Iv 40 Mg Vial IV PUSH 40 mg QAM SILVANA Administration Radiology Results: ITS Impressions Abdomen/Pelvis CT 03/03/25 16:33 IMPRESSION: Small bowel obstruction with findings concerning for carcinomatosis Findings a progressed compared to the previous study Abdomen X-Ray 03/03/25 17:46 Impression: 1. No acute abnormality. Small Bowel X-Ray 03/05/25 11:13 IMPRESSION: 1. Normal small bowel transit time to the colon of 60-90 minutes with no dilated bowel to suggest obstruction. Labs Labs: Laboratory Results - last 24 hr 03/05/25 03/05/25 03/06/25 12:04 17:01 00:33 WBC RBC Hgb Hct MCV MCH MCHC RDW Plt Count MPV Immature Gran % (Auto) Neut % (Auto) Lymph % (Auto) [place] % (Auto) Eos % (Auto) Baso % (Auto) Lymph # (Auto) [place] # (Auto) Eos # (Auto) Baso # (Auto) Abs Immat Gran (auto) Absolute Neuts (auto) Absolute Nucleated RBC Nucleated RBC % % Immature Plt Fraction Sodium Potassium Chloride Carbon Dioxide Anion Gap BUN Creatinine Estim Creat Clear Calc Estimated GFR Glucose POC Capillary Glucose 120 H 143 H 158 H Calcium Magnesium 03/06/25 03/06/25 03/06/25 08:12 11:13 11:14 WBC 6.3 RBC 4.68 Hgb 13.4 L Hct 40.6 L MCV 86.8 MCH 28.6 MCHC 33.0 RDW 13.6 Plt Count 80 L MPV 11.0 H Immature Gran % (Auto) 0.3 Neut % (Auto) 71.3 Lymph % (Auto) 20.0 [place] % (Auto) 6.2 Eos % (Auto) 1.4 Baso % (Auto) 0.8 Lymph # (Auto) 1.25 [place] # (Auto) 0.4 Eos # (Auto) 0.1 Baso # (Auto) 0.1 Abs Immat Gran (auto) 0.02 Absolute Neuts (auto) 4.5 Absolute Nucleated RBC 0.000 Nucleated RBC % 0.0 % Immature Plt Fraction 6.1 Sodium 140 Potassium 4.1 Chloride 107 Carbon Dioxide 28 Anion Gap 5 BUN 15 Creatinine 0.91 Estim Creat Clear Calc 62 Estimated GFR > 60 Glucose 140 H POC Capillary Glucose 136 H Calcium 8.4 Magnesium 1.8 03/06/25 11:41 WBC RBC Hgb Hct MCV MCH MCHC RDW Plt Count MPV Immature Gran % (Auto) Neut % (Auto) Lymph % (Auto) [place] % (Auto) Eos % (Auto) Baso % (Auto) Lymph # (Auto) [place] # (Auto) Eos # (Auto) Baso # (Auto) Abs Immat Gran (auto) Absolute Neuts (auto) Absolute Nucleated RBC Nucleated RBC % % Immature Plt Fraction Sodium Potassium Chloride Carbon Dioxide Anion Gap BUN Creatinine Estim Creat Clear Calc Estimated GFR Glucose POC Capillary Glucose 145 H Calcium Magnesium Quality VTE Prophylaxis VTE prophylaxis: mechanical ordered Hospitalist MIPS Advance Care Plan I have confirmed that the patient's Advanced Care Plan is present, code status is documented, or surrogate decision maker is listed in patient medical record.: Yes Medication Reconciliation I have utilized all available resources to obtain, update and review the patients current medications (includes all prescriptions, OTC, herbals, cannabis, and nutritional supplements).: Yes
--- NOTE | 2025-03-06 13:10 | PCNFU ---
Nutrition Follow-Up Complete: Severe protein calorie malnutrition related to chronic loss of appetite from colon cancer as evidenced by weight loss 10%/1 month, 18%/6 months; intakes <75% needs >1 month; moderate muscle wasting and fat loss Meet estimated nutrition needs when medically able - Progressing. Continue with same goal Goal: Pt current nutrition is NPO for port placement. Nutrition recommendation: Advance diet as medically able Last recorded weight is 83.4 kg. Bowel Motility: +2 BMs 03/05 Labs Reviewed: Hgb 13.4, Hct 40.6, Glu 140 Meds Noted: LR, protonix, novolog, D5 Skin: No skin issues noted Additional Notes: Pt ate 75% dinner last night. NPO today for port placement for colon cancer treatment. Continue to monitor. Monitoring diet orders, weights, labs, output, plan of care Follow up in 3 days
--- NOTE | 2025-03-06 17:28 | WPDHPUPDATE1 ---
History and Physical Update Update Date/Time: 03/06/25 17:28 History and Physical has been reviewed, including an updated exam of the patient. There are NO changes in the patient's condition. Risks, benefits, and alternatives have been discussed and questions answered. Patient agrees to proceed with procedure.
--- NOTE | 2025-03-06 17:48 | P.PNAN_ITS ---
Anes - Initial Pre Proc Eval Procedure: Operation Date: 03/06/25 15:30 Proposed Procedures p Insertion Jennifer Cath - Puneet Tesfaye DO Date/Time: 03/06/25 17:48 Surgeon: Brandan Lamar MD Pre Op Diagnosis: SBO Patient Data Age: 75 Gender: M Height: 1.75 m Weight: 83.4 kg Last Vital Signs Temp 98.5 F 03/06/25 15:30 Pulse 72 03/06/25 15:30 Resp 16 03/06/25 15:30 BP 159/76 H 03/06/25 15:30 Pulse Ox 98 03/06/25 15:30 O2 Del Method Room Air 03/06/25 15:30 Allergies Allergy/AdvReac Type Severity Reaction Status Date / Time codeine AdvReac Unknown Hyperactive Verified 03/03/25 18:34 empagliflozin (From AdvReac Unknown Other Verified 03/03/25 18:34 Jardiance) Home Medications ?Medication ?Instructions ?Recorded ?Confirmed ?Type atorvastatin 40 mg tablet 40 mg PO DAILY 08/03/2212/19 History multivitamin with minerals-folic 1 tablet PO DAILY 02/1703/03/25 History acid 0.4 mg tablet pantoprazole 40 mg tablet,delayed 40 mg PO DAILY 08/0303/03/25 History release zonisamide 100 mg capsule 200 mg PO DAILY 09/21/2212/19 History lacosamide 100 mg tablet 100 mg PO DAILY 01/17/2312/19 History levetiracetam 500 mg tablet 1,000 mg (2 x 500 mg) PO Q AM #30 01/19/23 03/03/25 Rx (Keppra) tabs pregabalin 50 mg capsule (Lyrica) 300 mg (6 x 50 mg) B [facility] HS #15 01/19/23 03/03/25 Rx caps pregabalin 150 mg capsule 150 mg PO QAM 09/12/2303/03 History levetiracetam 500 mg tablet 1,000 mg PO HS 11/24/24 History (Keppra) insulin aspart U-100 100 unit/mL 1 - 15 unit subcut TI DWMEAL 01/21/25 03/03/25 History (3 mL) subcutaneous pen (Novolog FlexPen U-100 Insulin aspart) insulin glargine 100 unit/mL (3 35 unit subcut DAILY 0 01/21/25 03/03/25 History mL) subcutaneous pen (Lantus Solostar U-100 Insulin) oxycodone 5 mg tablet 5 mg PO Q4H PRN pain #25 tab s 02/19/25 03/03/25 Rx losartan 25 mg tablet 25 mg PO DAILY 03/03/2512/19 History Laboratory Tests 03/06/25 03/06/25 03/06/25 00:33 08:12 11:13 WBC RBC Hgb Hct MCV MCH MCHC RDW Plt Count MPV Immature Gran % (Auto) Neut % (Auto) Lymph % (Auto) [place] % (Auto) Eos % (Auto) Baso % (Auto) Lymph # (Auto) [place] # (Auto) Eos # (Auto) Baso # (Auto) Abs Immat Gran (auto) Absolute Neuts (auto) Absolute Nucleated RBC Nucleated RBC % % Immature Plt Fraction Sodium 140 mmol/L (137-145) Potassium 4.1 mmol/L (3.4-5.0) Chloride 107 mmol/L (98-107) Carbon Dioxide 28 mmol/L (22-30) Anion Gap 5 mmol/L (4-12) BUN 15 mg/dL (9-20) Creatinine 0.91 mg/dL (0.7-1.3) Estim Creat Clear Calc 62 ml/min Estimated GFR > 60 (59 - ) Glucose 140 H mg/dL (65-110) POC Capillary Glucose 158 H mg/dl 136 H mg/dl (65-105) (65-105) Calcium 8.4 mg/dL (8.4-10.2) Magnesium 1.8 mg/dL (1.6-2.3) 03/06/25 03/06/25 03/06/25 11:14 11:41 15:54 WBC 6.3 K/mm3 (4.5-10.0) RBC 4.68 M/mm3 (4.6-6.20) Hgb 13.4 L g/dL (14.0-18.0) Hct 40.6 L % (42.0-52.0) MCV 86.8 fl (80-100) MCH 28.6 pg (26-34) MCHC 33.0 g/dl (32-36) RDW 13.6 % (11.5-14.5) Plt Count 80 L k/mm3 (150-375) MPV 11.0 H fl (7.4-10.4) Immature Gran % (Auto) 0.3 % (0-0.5) Neut % (Auto) 71.3 % (45.5-73.1) Lymph % (Auto) 20.0 % (18.3-44.2) [place] % (Auto) 6.2 % (2.6-8.5) Eos % (Auto) 1.4 % (0-4.4) Baso % (Auto) 0.8 % (0.2-1.2) Lymph # (Auto) 1.25 K/mm3 (0.9-3.2) [place] # (Auto) 0.4 K/mm3 (0.1-0.6) Eos # (Auto) 0.1 K/mm3 (0-0.3) Baso # (Auto) 0.1 K/mm3 (0.0-0.1) Abs Immat Gran (auto) 0.02 K/mm3 (0.00-0.031) Absolute Neuts (auto) 4.5 K/mm3 (1.3-6.7) Absolute Nucleated RBC 0.000 K/mm3 (0.0-0.012) Nucleated RBC % 0.0 % (0.0-0.2) % Immature Plt Fraction 6.1 % (0.9-11.2) Sodium Potassium Chloride Carbon Dioxide Anion Gap BUN Creatinine Estim Creat Clear Calc Estimated GFR Glucose POC Capillary Glucose 145 H mg/dl 108 H mg/dl (65-105) (65-105) Calcium Magnesium Patient hx anesthesia problems: none Family hx anesthesia problems: none Results Review: All pre-operative results and documents have been reviewed as part of the pre- operative evaluation. [facility] Past Medical History Medical History History of retinal detachment Glaucoma SBO (small bowel obstruction) GERD (gastroesophageal reflux disease) Neuropathy Hyperlipidemia DM2 (diabetes mellitus, type 2) Occult blood in stools Colon polyp Brain tumor History of seizure disorder Anemia Diabetes Hypertension Surgical History Surgical History History of umbilical hernia repair History of cholecystectomy History of appendectomy History of laparoscopy H/O colonoscopy with polypectomy L4 through S1 on November 02, 2022 History of back surgery History of brain surgery Brain tumor resection, 1995 Hx of total knee arthroplasty Bilaterally Family History Family History Unknown No problems noted. Sibling Heart valve replaced CHF (congestive heart failure) Sibling Diabetes mellitus Sibling Diabetes mellitus Sibling Diabetes mellitus Mother Diabetes mellitus Grandparent Diabetes mellitus Social History Social History Social History: The patient lives home alone and has 2 children. 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 Code status full code. Smoking status: Never smoker Alcohol intake: never Substance use: never Substance use type: does not use Do You Feel Safe in your Home?: Yes Lack of Transportation: No Lack of Food: Never True Current Housing: I Have Housing Concerned About Future Housing: No Difficulty Paying Gas/Electric Bills: No Difficulty Paying for Meds: No Currently Unemployed: No Education: Bachelor's Degree Difficulty w/ Childcare or Family Care: No Living arrangements: with family Spiritual care concerns: No Anes - Eval Final PreProcedure Day of Procedure 03/06/25 17:48 Patient weight: overweight Lungs: normal air movement Airway: Mallampati scale class II Neurological: alert and oriented Last oral intake: >/= 8 hours ASA classification: III Emergent: no Anesthetic plan: proceed Anesthesia type and monitoring: general GIVS and standard monitoring Results Review: All pre-operative results and documents have been reviewed as part of the pre- operative evaluation. Carcinomatosis, recent NG placement but it has been removed for 1 day +, no N/V, imaging shows no more SBO. HTN, hyperlipidemia by hx. Informed Consent: The patient's anesthetic plan and its attendant risks and benefits were discussed with the patient/family/POA. Questions were solicited and answers provided to the satisfaction of the patient/family/POA.
[2025-03-06] MEDS: ceFAZolin 2 GM in SODIUM CHLORIDE 0.9% IV 50 ML 100 ML IVPB (18:05)
[2025-03-06] MEDS: LIDO 1%/EPINEPHRINE 1:100,000 50 ML VIAL 30 ML INFILTRATE (18:22)
[2025-03-06] MEDS: HEPARIN SODIUM, PORCINE 10,000 UNITS/10 ML VIAL 10 UNITS IRRIGATION (18:23)
[2025-03-06] MEDS: LACTATED RINGERS 1,000 ML 30 ML IV CONT (18:42)
--- NOTE | 2025-03-06 18:50 | P.OP_ITS ---
Procedure Note - Detailed Date of Procedure 03/06/25 Pre-op Diagnosis Appendiceal adenocarcinoma, carcinomatosis, partial small bowel obstruction Post-op Diagnosis Same Procedure Performed Right Internal Jugular tunneled Port-a-Cath placement using ultrasound and fluoroscopic guidance Surgeon Puneet Tesfaye, DO Anesthesia MAC and Local (0.5% bupivicaine with epinephrine) Indications This is a 75-year-old man who presented with a recent finding of appendiceal adenocarcinoma with evidence of carcinomatosis. He has had a couple episodes of partial small bowel obstruction over the past 2 months. The bowel obstruction appears to be resolving and he is tolerating clear liquids. Discussed delaying any surgical resection until patient can start chemotherapy. I have recommended Port-A-Cath placement to start chemotherapy as soon as possible. Findings Right internal jugular Port-A-Cath was placed under ultrasound and fluoroscopic guidance. SonoSite ultrasound was used to identify the right internal jugular vein. This was visualized as a compressible vessel just lateral to the pulsatile carotid artery. The right internal jugular vein was accessed with an 18 gauge introducer needle directly under ultrasound guidance. Dark nonpulsatile blood was aspirated. Fluoroscopy was then used to guide advancement of the guidewire followed by the dilator sheath. The final fluoroscopic images demonstrated the catheter tip in the distal SVC and no kinks along its path. Description of Procedure Procedure as well as risks, benefits, and alternatives were discussed with patient. Written consent was obtained and placed in chart prior to procedure. Patient was brought back to surgical suite. Was placed supine on operating table. Time-out was done confirm patient procedure. IV sedation was then admin istered by the Anesthesia Department. The chest and neck area was prepped and draped in sterile fashion using chlorhexidine prep. Patient was placed in Trendelenburg position. SonoSite ultrasound was used to identify the right internal jugular vein. It was visualized as a compressible vessel just lateral to the carotid artery. 1% lidocaine with epinephrine was infiltrated directly over the vessel under ultrasound guidance. An 18 gauge introducer needle was then advanced under ultrasound guidance directly into the right internal jugular vein. Dark nonpulsatile blood was aspirated. A 0.035 in guidewire was then advanced through the needle under fluoroscopic guidance. The guidewire was visualized advancing all the way down into the superior vena cava. 1% lidocaine with epinephrine was then infiltrated on the right anterior chest and along the tract up to the guidewire insertion site. A 3 cm incision was made with a 15 blade scalpel, and electrocautery was then used for dissection down through the subcutaneous tissue to the pectoral fascia. A pocket was created just inferior to the incision using blunt dissection. A small carrie incision was then also made at the insertion site at the neck. The tunneler was then advanced from the chest incision up to the neck incision and the catheter tubing was brought up through this tract. The dilator and sheath were then advanced over the guidewire under fluoroscopic visualization. The dilator and guidewire were then removed leaving the sheath in place. The catheter tubing was then advanced through the sheath under fluoroscopic guidance. The sheath was unsnapped and carefully peeled away. The catheter tubing was released underneath the neck incision. Fluoroscopy was used to confirm proper placement of the catheter tubi ng and no kinks along its path. The catheter was then cut to proper length and secured to the port. The port was then accessed with a Pak needle and aspirated and flushed with heparinized saline. The port function with ease. The port was then hep-locked with Hep-Lock solution. The port was then placed within the pocket that was created, and was secured to the fascia using 3 0 Prolene simple interrupted sutures. The patient was flattened out in bed. Magalys's fascia was reapproximated using 3 0 Vicryl simple interrupted sutures. The skin of the incisions was then approximated using 4-0 Monocryl subcuticular suture. Exofin glue was then applied on top. The patient was then awakened from anesthesia and transferred to recovery. Implants Smart Port CT Port-A-Cath Estimated Blood Loss 5 Complications No immediate complications Condition Stable Disposition Floor [facility] Billing Surgery - Charge Forward: Surgery Billing
[2025-03-06] MEDS: DEXTROSE 5%/0.9% SOD CHL 1,000 ML 40 ML IV CONT (19:51)
[2025-03-06] MEDS: levETIRAcetam 1000MG/NACL100ML 1,000 MG/100 ML BAG 100 MG IVPB (20:22)
[2025-03-07] VITALS (8 sets, daily range): BP systolic 149–164; BP diastolic 64–80; PULSE 64–70; RESP 14–16; TEMP 36.1–36.6; O2SAT 93–99
[2025-03-07] MEDS: MORPHINE SULFATE (*CRX) 4 MG/ML INJ IV PUSH (02:09)
[2025-03-07] MEDS: ACETAMINOPHEN ELIXIR 325 MG/10.15 ML UDC 650 MG PO ×3 (05:36→20:35)
[2025-03-07 06:05] LABS: Hematocrit 41.9 % (42.0-52.0); Hemoglobin 14.1 g/dL (14.0-18.0); Immature Granulocyte Percent A 0.4 % (0-0.5); Immature Platelet Fraction Pct 6.2 % (0.9-11.2); Lymphocytes Absolute Auto 1.06 K/mm3 (0.9-3.2); Mean Corpuscular HGB Conc 33.7 g/dl (32-36); Mean Corpuscular Hemoglobin 28.6 pg (26-34); Mean Corpuscular Volume 85.0 fl (80-100); Nucleated Red Blood Cells Absolute Auto 0.000 K/mm3 (0.0-0.012); Nucleated Red Blood Cells Perc 0.0 % (0.0-0.2); Platelet Count Result 101 k/mm3 (150-375); Red Blood Count 4.93 M/mm3 (4.6-6.20); White Blood Count 5.3 K/mm3 (4.5-10.0)
[2025-03-07 06:32] LABS: Anion Gap 5 mmol/L (4-12); Blood Urea Nitrogen 13 mg/dL (9-20); Calcium 8.4 mg/dL (8.4-10.2); Carbon Dioxide 29 mmol/L (22-30); Chloride 104 mmol/L (98-107); Estimated CRCL calculation 66 ml/min; Estimated Glomerular Filt Rate > 60; Glucose 146 mg/dL (65-110); Potassium 4.2 mmol/L (3.4-5.0); Sodium 138 mmol/L (137-145)
[2025-03-07] MEDS: levETIRAcetam 1000MG/NACL100ML 1,000 MG/100 ML BAG 100 MG IVPB (08:10)
[2025-03-07] MEDS: PANTOPRAZOLE SODIUM IV 40 MG VIAL IV PUSH (08:11)
--- NOTE | 2025-03-07 13:37 | PM.IMPN ---
Progress Note: A&P Assessment and Plan (1) SBO (small bowel obstruction): Code(s): K56.609 - Unspecified intestinal obstruction, unspecified as to partial versus complete obstruction Status: Acute Assessment and Plan: Presented here on 03/03 with abdominal pain, nausea, vomiting, and diarrhea. CT abd/pelvis showed a small bowel obstruction with findings concerning for carcinomatosis, of findings progressed compared to previous study on 01/21/2025. He recently underwent an EGD and colonoscopy on 02/04/2025. EGD normal. Colonoscopy showed a mass and diverticulosis. Pathology from the colonoscopy showed adenocarcinoma. NG tube placed, general surgery consulted. Suspect recurrent obstruction possibly due to current cancerous mass. WBC elevated to 15.1 on admission, normalized. NG tube now removed. PLAN Drinking full liquids but not all of meals, early satiety. Requiring more pain medications post op and not drinking as well today --Stop fluids & resume if needed --Follow BMP, mag --analgesics p.r.n.: Tylenol, Morphine --antiemetic p.r.n. 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 Pathology showed adenocarcinoma, suspected to be lower GI in origin. EGD and colonoscopy completed, see reports. Pathology from colonoscopy also showed adenocarcinoma. - referred to Oncology, Axel BROWN, whom he has previously seen for Hematology reasons. Had an appointment 03/05, will need to be rescheduled (3) Hypertension: Qualifiers: Hypertension type: primary hypertension Qualified Code(s): I10 - Essential (primary) hypertension Code(s): I10 - Essential (primary) hypertension Status: Chronic Assessment and Plan: - chronic, currently 137/78, stable. 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 Keppra, on 1 g b.i.d.. Changed to 1 G IV b.i.d.. Resume PO -Resume home lacosamide and zonisamide Plan Diet: NPO except ice chips, bowel rest GI Prophylaxis: Ppi IV DVT Prophylaxis: SCDs IV fluids: 1L bolus -> 100 mL/hr Lines/Tubes: Peripheral IV, NG tube Code Status: full code Time Spent With Patient Time: 58 minutes Subjective Date/time seen: 03/07/25 13:37 Interval history: Not eating well, no nausea S/p port with surgery yesterday. Sore today right upper chest Last BM 03/05, add miralax Review of Systems Review of Systems: All systems reviewed & are unremarkable except as noted in HPI and below Exam Narrative: General - Awake and alert. No acute distress Eyes - PERRLA, EOM intact ENT - No thrush, No erythema Neck - No noticeable or palpable swelling Lymph Nodes - No lymphadenopathy Cardiovascular - RRR no m/r/g, no JVD Lungs: Clear to auscultation, No wheezing, use of accessory muscles, no crackles or Skin - Skin warm and dry, no wounds or rashes. Right chest incision to neck has bruising, right chest well approximated Abdomen - Normal bowel sounds, abdomen soft and slightly tender low abdomen Extremities - No edema, cyanosis or clubbing Musculoskeletal - 5/5 strength, normal range of motion, no swollen or erythematous joints. Neurological ? Alert and oriented x 3, CN 2-12 grossly intact. Psych: Normal mood and affect Objective Data Vital Signs Vital Signs: Vital Signs - 24 hr 03/06/25 14:00 03/06/25 15:30 03/06/25 18:42 Temperature 98.4 F 98.5 F 98.5 F Pulse Rate 66 72 94 Respiratory Rate 16 16 18 Blood Pressure 143/56 H 159/76 H 126/60 Pulse Oximetry 98 98 97 Oxygen Delivery Room Air Room Air 03/06/25 18:55 03/06/25 19:10 03/06/25 19:20 Temperature Pulse Rate 85 81 84 Respiratory Rate 15 17 17 Blood Pressure 143/61 H 140/66 136/65 Pulse Oximetry 98 97 97 Oxygen Delivery Room Air Room Air Room Air 03/06/25 19:40 03/06/25 19:55 03/06/25 20:25 Temperature 97.9 F 97.9 F 98.2 F Pulse Rate 80 79 78 Respiratory Rate 16 16 14 Blood Pressure 146/67 H 145/67 H 156/73 H Pulse Oximetry 96 93 91 Oxygen Delivery 03/06/25 21:25 03/07/25 02:08 03/07/25 06:00 Temperature 98.1 F 97.9 F 97.7 F Pulse Rate 79 69 64 Respiratory Rate 16 14 16 Blood Pressure 166/70 H 150/80 H 149/73 H Pulse Oximetry 94 93 97 Oxygen Delivery 03/07/25 09:21 03/07/25 09:42 03/07/25 12:58 Temperature 97.4 F L 97.8 F Pulse Rate 64 70 Respiratory Rate 16 16 Blood Pressure 149/65 H 158/68 H Pulse Oximetry 99 97 99 Oxygen Delivery Room Air Intake/Output Intake/Output: Intake & Output 03/04/25 03/05/25 03/06/25 03/07/25 23:59 23:59 23:59 23:59 Intake Total 2715.0 984.0 2245 390 Output Total 1250 1100 300 Balance 1465.0 -116.0 2245 90 Meds/Results Medications: Active Medications Generic Name Dose Route Start Last Admin Trade Name Freq PRN Reason Stop Dose Admin Acetaminophen 650 mg 03/03/25 18:05 03/07/25 12:23 Acetaminophen Elixir 325 Mg/10.15 Ml Udc PO 650 mg Q6H PRN Administration Mild Pain (1-3) or Fever Dextrose 12.5 gm 03/03/25 18:09 03/04/25 18:15 Dextrose 50% 25 Gm/50 Ml Syringe IV PUSH 12.5 gm PRN PRN Administration Hypoglycemia Protocol Glucagon 1 mg 03/03/25 18:09 Glucagon For Inj 1 Mg Vial IM PRN PRN Hypoglycemia Protocol Glucose 15 gm 03/03/25 18:09 Glucose Oral Gel 15 Gm Of Glucse In 37.5 Gm Tube PO PRN PRN Hypoglycemia Protocol Hydralazine HCl 10 mg 03/03/25 20:26 Hydralazine Hcl 20 Mg/Ml Vial IV PUSH Q8H PRN Blood Pressure - High, >180/90 Dextrose 1,000 mls @ 100 mls/hr 03/03/25 18:09 03/05/25 01:04 Dextrose 5% 1,000 Ml IVPB 100 mls/hr PRN PRN Administration Hypoglycemia Protocol Levetiracetam 1,000 mg in 100 mls @ 400 mls/hr 03/03/25 21:00 03/07/25 08:10 Keppra Iv IVPB 100 mls/hr Q12HR SILVANA Administration Dextrose/Sodium Chloride 1,000 mls @ 40 mls/hr 03/04/25 19:50 03/07/25 00:00 Dextrose 5% Sodium Chloride 0.9% IV CONT Not Given .Q24H [facility] Insulin Aspart 4 - 8 units 03/04/25 00:00 03/07/25 12:17 Insulin Aspart (*Bkc) 100 Units/Ml SUB-Q Not Given Q6HR [facility] Protocol Morphine Sulfate 2 mg 03/03/25 18:05 03/06/25 22:39 Morphine Sulfate (*Crx) 4 Mg/Ml Inj IV PUSH 2 mg Q4H PRN Administration Pain Rated 4-6 Morphine Sulfate 4 mg 03/03/25 18:05 03/07/25 02:09 Morphine Sulfate (*Crx) 4 Mg/Ml Inj IV PUSH 4 mg Q4H PRN Administration Pain Rated 7-10 Ondansetron HCl 4 mg 03/03/25 18:19 03/05/25 11:14 Ondansetron Inj 4 Mg/2 Ml Vial IV PUSH 4 mg Q4H PRN Administration Nausea Pantoprazole Sodium 40 mg 03/04/25 09:00 03/07/25 08:11 Pantoprazole Sodium Iv 40 Mg Vial IV PUSH 40 mg QAM SILVANA Administration Radiology Results: ITS Impressions Abdomen/Pelvis CT 03/03/25 16:33 IMPRESSION: Small bowel obstruction with findings concerning for carcinomatosis Findings a progressed compared to the previous study Abdomen X-Ray 03/03/25 17:46 Impression: 1. No acute abnormality. Small Bowel X-Ray 03/05/25 11:13 IMPRESSION: 1. Normal small bowel transit time to the colon of 60-90 minutes with no dilated bowel to suggest obstruction. Chest X-Ray 03/06/25 19:30 IMPRESSION: 1. No acute cardiopulmonary disease. Labs Labs: Laboratory Results - last 24 hr 03/06/25 03/06/25 03/07/25 15:54 19:22 02:05 WBC RBC Hgb Hct MCV MCH MCHC RDW Plt Count MPV Immature Gran % (Auto) Neut % (Auto) Lymph % (Auto) [place] % (Auto) Eos % (Auto) Baso % (Auto) Lymph # (Auto) [place] # (Auto) Eos # (Auto) Baso # (Auto) Abs Immat Gran (auto) Absolute Neuts (auto) Absolute Nucleated RBC Nucleated RBC % % Immature Plt Fraction Sodium Potassium Chloride Carbon Dioxide Anion Gap BUN Creatinine Estim Creat Clear Calc Estimated GFR Glucose POC Capillary Glucose 108 H 151 H 176 H Calcium 03/07/25 03/07/25 03/07/25 02:19 05:36 06:29 WBC 5.3 RBC 4.93 Hgb 14.1 Hct 41.9 L MCV 85.0 MCH 28.6 MCHC 33.7 RDW 13.5 Plt Count 101 L MPV 11.3 H Immature Gran % (Auto) 0.4 Neut % (Auto) 72.0 Lymph % (Auto) 20.0 [place] % (Auto) 6.8 Eos % (Auto) 0.4 Baso % (Auto) 0.4 Lymph # (Auto) 1.06 [place] # (Auto) 0.4 Eos # (Auto) 0.0 Baso # (Auto) 0.0 Abs Immat Gran (auto) 0.02 Absolute Neuts (auto) 3.8 Absolute Nucleated RBC 0.000 Nucleated RBC % 0.0 % Immature Plt Fraction 6.2 Sodium 138 Potassium 4.2 Chloride 104 Carbon Dioxide 29 Anion Gap 5 BUN 13 Creatinine 0.85 Estim Creat Clear Calc 66 Estimated GFR > 60 Glucose 146 H POC Capillary Glucose 177 H 167 H Calcium 8.4 03/07/25 03/07/25 07:26 12:03 WBC RBC Hgb Hct MCV MCH MCHC RDW Plt Count MPV Immature Gran % (Auto) Neut % (Auto) Lymph % (Auto) [place] % (Auto) Eos % (Auto) Baso % (Auto) Lymph # (Auto) [place] # (Auto) Eos # (Auto) Baso # (Auto) Abs Immat Gran (auto) Absolute Neuts (auto) Absolute Nucleated RBC Nucleated RBC % % Immature Plt Fraction Sodium Potassium Chloride Carbon Dioxide Anion Gap BUN Creatinine Estim Creat Clear Calc Estimated GFR Glucose POC Capillary Glucose 148 H 169 H Calcium Quality VTE Prophylaxis VTE prophylaxis: mechanical ordered and pharmacologic ordered Hospitalist MIPS Advance Care Plan I have confirmed that the patient's Advanced Care Plan is present, code status is documented, or surrogate decision maker is listed in patient medical record.: Yes Medication Reconciliation I have utilized all available resources to obtain, update and review the patients current medications (includes all prescriptions, OTC, herbals, cannabis, and nutritional supplements).: Yes
[2025-03-07] MEDS: ZONISAMIDE 100 MG CAPSULE 200 MG PO (14:08)
[2025-03-07] MEDS: LACOSAMIDE (*CRX) 100 MG TABLET PO (14:08)
[2025-03-07] MEDS: MORPHINE SULFATE (*CRX) 4 MG/ML INJ 2 MG IV PUSH (14:14)
--- NOTE | 2025-03-07 15:04 | P.PNGS_ITS ---
Progress Note: A&P Assessment and Plan (1) Metastatic adenocarcinoma to intra-abdominal site: Code(s): C79.89 - Secondary malignant neoplasm of other specified sites Status: Acute Assessment and Plan: * Port placed yesterday. Surgically stable for discharge. * Will need to follow up with Dr. Reyna to plan chemotherapy (2) SBO (small bowel obstruction): Code(s): K56.609 - Unspecified intestinal obstruction, unspecified as to partial versus complete obstruction Status: Acute Assessment and Plan: * Resolved. Recommend full liquid diet with nutrition supplements until chemotherapy has started. Hopefully chances of obstruction will be less and less as he get further into chemo treatment. Subjective Subjective Date/Time Seen: 03/07/25 15:04 Interval history: Tolerated procedure yesterday. Tolerating full liquid diet. No nausea or pain. Passing flatus. Exam GI: Inspection: non-distended GI Palp: Yes Soft to palpation, No Tenderness to palpation present (GI) and No Guarding due to palpation present (GI) Auscultation: normal bowel sounds Objective Data Vital Signs Vital Signs: Vital Signs - 24 hr 03/06/25 15:30 03/06/25 18:42 03/06/25 18:55 Temperature 98.5 F 98.5 F Pulse Rate 72 94 85 Respiratory Rate 16 18 15 Blood Pressure 159/76 H 126/60 143/61 H Pulse Oximetry 98 97 98 Oxygen Delivery Room Air Room Air Room Air 03/06/25 19:10 03/06/25 19:20 03/06/25 19:40 Temperature 97.9 F Pulse Rate 81 84 80 Respiratory Rate 17 17 16 Blood Pressure 140/66 136/65 146/67 H Pulse Oximetry 97 97 96 Oxygen Delivery Room Air Room Air 03/06/25 19:55 03/06/25 20:25 03/06/25 21:25 Temperature 97.9 F 98.2 F 98.1 F Pulse Rate 79 78 79 Respiratory Rate 16 14 16 Blood Pressure 145/67 H 156/73 H 166/70 H Pulse Oximetry 93 91 94 Oxygen Delivery 03/07/25 02:08 03/07/25 06:00 03/07/25 09:21 Temperature 97.9 F 97.7 F 97.4 F L Pulse Rate 69 64 64 Respiratory Rate 14 16 16 Blood Pressure 150/80 H 149/73 H 149/65 H Pulse Oximetry 93 97 99 Oxygen Delivery 03/07/25 09:42 03/07/25 12:58 03/07/25 14:00 Temperature 97.8 F 97.8 F Pulse Rate 70 70 Respiratory Rate 16 16 Blood Pressure 158/68 H 158/68 H Pulse Oximetry 97 99 98 Oxygen Delivery Room Air Intake/Output Intake/Output: Intake & Output 03/04/25 03/05/25 03/06/25 03/07/25 23:59 23:59 23:59 23:59 Intake Total 2715.0 984.0 2245 390 Output Total 1250 1100 300 Balance 1465.0 -116.0 2245 90 Meds/Results Medications: Active Medications Generic Name Dose Route Start Last Admin Trade Name Freq PRN Reason Stop Dose Admin Acetaminophen 650 mg 03/03/25 18:05 03/07/25 12:23 Acetaminophen Elixir 325 Mg/10.15 Ml Udc PO 650 mg Q6H PRN Administration Mild Pain (1-3) or Fever Dextrose 12.5 gm 03/03/25 18:09 03/04/25 18:15 Dextrose 50% 25 Gm/50 Ml Syringe IV PUSH 12.5 gm PRN PRN Administration Hypoglycemia Protocol Glucagon 1 mg 03/03/25 18:09 Glucagon For Inj 1 Mg Vial IM PRN PRN Hypoglycemia Protocol Glucose 15 gm 03/03/25 18:09 Glucose Oral Gel 15 Gm Of Glucse In 37.5 Gm Tube PO PRN PRN Hypoglycemia Protocol Heparin Sodium (Porcine) 5,000 units 03/07/25 22:00 Heparin Sodium 5,000 Units/Ml Vial SUB-Q Q8HR [facility] Hydralazine HCl 10 mg 03/03/25 20:26 Hydralazine Hcl 20 Mg/Ml Vial IV PUSH Q8H PRN Blood Pressure - High, >180/90 Dextrose/Sodium Chloride 1,000 mls @ 40 mls/hr 03/04/25 19:50 03/07/25 00:00 Dextrose 5% Sodium Chloride 0.9% IV CONT Not Given .Q24H [facility] Insulin Aspart 4 - 8 units 03/07/25 17:00 Insulin Aspart (*Bkc) 100 Units/Ml SUB-Q TIDWM SILVANA Protocol Insulin Aspart 2 units 03/07/25 17:00 Insulin Aspart (*Bkc) 100 Units/Ml SUB-Q TIDWM [facility] Lacosamide 100 mg 03/07/25 14:00 03/07/25 14:08 Lacosamide (*Crx) 100 Mg Tablet PO 100 mg DAILY SILVANA Administration Levetiracetam 1,000 mg 03/07/25 21:00 Levetiracetam 500 Mg Tablet PO Q12HR SILVANA Morphine Sulfate 2 mg 03/03/25 18:05 03/07/25 14:14 Morphine Sulfate (*Crx) 4 Mg/Ml Inj IV PUSH 2 mg Q4H PRN Administration Pain Rated 4-6 Morphine Sulfate 4 mg 03/03/25 18:05 03/07/25 02:09 Morphine Sulfate (*Crx) 4 Mg/Ml Inj IV PUSH 4 mg Q4H PRN Administration Pain Rated 7-10 Ondansetron HCl 4 mg 03/03/25 18:19 03/05/25 11:14 Ondansetron Inj 4 Mg/2 Ml Vial IV PUSH 4 mg Q4H PRN Administration Nausea Pantoprazole Sodium 40 mg 03/04/25 09:00 03/07/25 08:11 Pantoprazole Sodium Iv 40 Mg Vial IV PUSH 40 mg QAM SILVANA Administration Polyethylene Glycol 17 gm 03/07/25 13:40 03/07/25 14:52 Polyethylene Glycol 3350 17 Gm Powd.Pack PO Not Given BID [facility] Zonisamide 200 mg 03/07/25 14:00 03/07/25 14:08 Zonisamide 100 Mg Capsule PO 200 mg DAILY SILVANA Administration Radiology Results: ITS Impressions Abdomen/Pelvis CT 03/03/25 16:33 IMPRESSION: Small bowel obstruction with findings concerning for carcinomatosis Findings a progressed compared to the previous study Abdomen X-Ray 03/03/25 17:46 Impression: 1. No acute abnormality. Small Bowel X-Ray 03/05/25 11:13 IMPRESSION: 1. Normal small bowel transit time to the colon of 60-90 minutes with no dilated bowel to suggest obstruction. Chest X-Ray 03/06/25 19:30 IMPRESSION: 1. No acute cardiopulmonary disease. Labs Labs: Laboratory Results - last 24 hr 03/06/25 03/06/25 03/07/25 15:54 19:22 02:05 WBC RBC Hgb Hct MCV MCH MCHC RDW Plt Count MPV Immature Gran % (Auto) Neut % (Auto) Lymph % (Auto) [place] % (Auto) Eos % (Auto) Baso % (Auto) Lymph # (Auto) [place] # (Auto) Eos # (Auto) Baso # (Auto) Abs Immat Gran (auto) Absolute Neuts (auto) Absolute Nucleated RBC Nucleated RBC % % Immature Plt Fraction Sodium Potassium Chloride Carbon Dioxide Anion Gap BUN Creatinine Estim Creat Clear Calc Estimated GFR Glucose POC Capillary Glucose 108 H 151 H 176 H Calcium 03/07/25 03/07/25 03/07/25 02:19 05:36 06:29 WBC 5.3 RBC 4.93 Hgb 14.1 Hct 41.9 L MCV 85.0 MCH 28.6 MCHC 33.7 RDW 13.5 Plt Count 101 L MPV 11.3 H Immature Gran % (Auto) 0.4 Neut % (Auto) 72.0 Lymph % (Auto) 20.0 [place] % (Auto) 6.8 Eos % (Auto) 0.4 Baso % (Auto) 0.4 Lymph # (Auto) 1.06 [place] # (Auto) 0.4 Eos # (Auto) 0.0 Baso # (Auto) 0.0 Abs Immat Gran (auto) 0.02 Absolute Neuts (auto) 3.8 Absolute Nucleated RBC 0.000 Nucleated RBC % 0.0 % Immature Plt Fraction 6.2 Sodium 138 Potassium 4.2 Chloride 104 Carbon Dioxide 29 Anion Gap 5 BUN 13 Creatinine 0.85 Estim Creat Clear Calc 66 Estimated GFR > 60 Glucose 146 H POC Capillary Glucose 177 H 167 H Calcium 8.4 03/07/25 03/07/25 07:26 12:03 WBC RBC Hgb Hct MCV MCH MCHC RDW Plt Count MPV Immature Gran % (Auto) Neut % (Auto) Lymph % (Auto) [place] % (Auto) Eos % (Auto) Baso % (Auto) Lymph # (Auto) [place] # (Auto) Eos # (Auto) Baso # (Auto) Abs Immat Gran (auto) Absolute Neuts (auto) Absolute Nucleated RBC Nucleated RBC % % Immature Plt Fraction Sodium Potassium Chloride Carbon Dioxide Anion Gap BUN Creatinine Estim Creat Clear Calc Estimated GFR Glucose POC Capillary Glucose 148 H 169 H Calcium
[2025-03-07] MEDS: INSULIN ASPART (*BKC) 100 UNITS/ML SUB-Q (17:53)
[2025-03-08] MEDS: ACETAMINOPHEN ELIXIR 325 MG/10.15 ML UDC 650 MG PO (05:39)
[2025-03-08 06:00] VITALS: BP 172/73; PULSE 68; RESP 16; TEMP 36.8; O2SAT 96
[2025-03-08 06:13] LABS: Hematocrit 42.4 % (42.0-52.0); Hemoglobin 14.1 g/dL (14.0-18.0); Immature Granulocyte Percent A 0.4 % (0-0.5); Immature Platelet Fraction Pct 7.0 % (0.9-11.2); Lymphocytes Absolute Auto 1.43 K/mm3 (0.9-3.2); Mean Corpuscular HGB Conc 33.3 g/dl (32-36); Mean Corpuscular Hemoglobin 28.7 pg (26-34); Mean Corpuscular Volume 86.2 fl (80-100); Nucleated Red Blood Cells Absolute Auto 0.000 K/mm3 (0.0-0.012); Nucleated Red Blood Cells Perc 0.0 % (0.0-0.2); Platelet Count Result 99 k/mm3 (150-375); Red Blood Count 4.92 M/mm3 (4.6-6.20); White Blood Count 4.7 K/mm3 (4.5-10.0)
[2025-03-08 06:26] LABS: Anion Gap 6 mmol/L (4-12); Blood Urea Nitrogen 11 mg/dL (9-20); Calcium 8.6 mg/dL (8.4-10.2); Carbon Dioxide 29 mmol/L (22-30); Chloride 106 mmol/L (98-107); Estimated CRCL calculation 63 ml/min; Estimated Glomerular Filt Rate > 60; Glucose 150 mg/dL (65-110); Potassium 3.6 mmol/L (3.4-5.0); Sodium 141 mmol/L (137-145)
[2025-03-08] MEDS: PANTOPRAZOLE SODIUM IV 40 MG VIAL IV PUSH (08:22)
[2025-03-08] MEDS: LACOSAMIDE (*CRX) 100 MG TABLET PO (08:22)
[2025-03-08] MEDS: ZONISAMIDE 100 MG CAPSULE 200 MG PO (08:22)
[2025-03-08] MEDS: INSULIN ASPART (*BKC) 100 UNITS/ML SUB-Q ×3 (08:23→11:52)
--- NOTE | 2025-03-08 11:10 | P.DS_ITS ---
DS: Admitting Diagnosis Discharge Date 03/08/2025 Admitting Diagnosis Abdominal Pain DS: Discharge Diagnosis Discharge Diagnosis (1) SBO (small bowel obstruction): Code(s): K56.609 - Unspecified intestinal obstruction, unspecified as to partial versus complete obstruction Status: Acute (2) Abdominal pain: Qualifiers: Abdominal location: lower abdomen, unspecified Qualified Code(s): R10.30 - Lower abdominal pain, unspecified Code(s): R10.9 - Unspecified abdominal pain Status: Acute DS: Summary Hospital Course Reason for hospitalization: Copied from [facility] 03/03: 75 y/o M with PMH of abdominal wall cancer (peritoneal carcinomatosis, suspicion for lower GI origin), hyperlipidemia, diabetes, brain tumor (s/p resection, 1995), seizure disorder (last one in Apr and brought on by Lia, prior to that his last was in 2001), anemia, and hypertension presents here with abdominal pain. The patient presents here on 03/03 from home for further evaluation of abdominal pain, nausea, vomiting, and diarrhea. HPI obtained through patient report and chart review. He reports onset of symptoms today. He describes the abdominal pain as diffuse, sharp, moved around his abdomen (like snakes were in it), radiating into his back - described as pressure, constant, and no modifying factors. He was prescribed pain medication recently by his general surgeon which did not alleviate his pain. He reports the diarrhea started 30 minutes prior to arrival and he described as large volume, brown, and watery. Reports that he felt flushed and diaphoretic when he was nauseated and trying to throw up. When he was finally able to vomit those symptoms resolved. He denies associated hematochezia, melena, or fever. He was recently admitted here from 01/21/2025 to 01/26/2025 for a small bowel obstruction. During this admission the patient was initially treated conservatively with bowel rest and NG tube. However they were unable to remove the NG tube and advance his diet. General surgery discussed possible surgical management which the patient elected to move forward with. He underwent a diagnostic laparoscopy on 01/25 which showed multiple areas of whitish plaques and wash nodules in the lower abdominal peritoneum, as well as same appearing and lesions on multiple loops of the small bowel on the serosas, mesentery, and omentum. Biopsies were taken which showed adenocarcinoma that is believed to be potential lower in GI in origin. Later seen on 02/04/2025 for an EGD and colonoscopy. EGD at that time was normal and his colonoscopy showed a colonic mass and diverticulosis without perforation/abscess/bleeding. Pathology showed adenocarcinoma. He has an abdominal surgery history consistent of diagnostic laparoscopy, appendectomy, cholecystectomy, and umbilical hernia repair. He has been referred to an oncologist - Axel BROWN. Has appt on 03/05. Initial VS at presentation: 97.6? F, HR 88, R 16, 128/89, and 98% on RA. ED workup showed: WBC 15.1, no anemia, no significant electrolyte derangements, creatinine 1.01 and GFR >60, glucose 215, LFTs/lipase within normal limits. C diff negative and viral PCR negative. CT of the abdomen/pelvis showed small- bowel obstruction with findings concerning for carcinomatosis, findings progressed compared to previous study on 01/21/2025. Abdomen XR showed no acute abnormality and NG tube terminating in the stomach. Hospital Course: SBO (small bowel obstruction): Presented here on 03/03 with abdominal pain, nausea, vomiting, and diarrhea. CT abd/pelvis showed a small bowel obstruction with findings concerning for carcinomatosis, of findings progressed compared to previous study on 01/21/2025. He recently underwent an EGD and colonoscopy on 02/04/2025. EGD normal. Colonoscopy showed a mass and diverticulosis. Pathology from the colonoscopy showed adenocarcinoma. NG tube placed, general surgery consulted. Suspect recurrent obstruction possibly due to current cancerous mass. WBC elevated to 15.1 on admission, normalized. Requiring more pain medications post op and not drinking as well immediately post op. NG tube removed and tolerating full liquids at discharge. general surgery consulted, oncology consulted, appreciate recommendations PLAN analgesics p.r.n.: Tylenol, Morphine antiemetic p.r.n. 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 Pathology showed adenocarcinoma, suspected to be lower GI in origin. EGD and colonoscopy completed, see reports. Pathology from colonoscopy also showed adenocarcinoma. - referred to Oncology, Axel BROWN, whom he has previously seen for Hematology reasons. Had an appointment 03/05, will need to be rescheduled Hypertension: chronic, currently 137/78, stable. - Held home medications while NPO: losartan - hydralazine prn for BP >180/90 DM2 (diabetes mellitus, type 2): Home meds: Aspart 1-15 units TID with meals, Lantus 35 units daily A1C 6.9% on 11/25/2024 Had been NPO with an NG tube. Resumed diet and blood sugars starting to trend up - Continue SSI, high dose TID with meals --Discharged with Lantus 15 daily, plan to increase as appetite improves. Follow up with PCP Seizures: Home meds: Keppra 1G BID, Lacosamide 100mg daily , Zonisamide 200mg daily Last seizure in 2021 due to Jardiance, before that his last seizure was in 2001 - home p.o. Keppra, on 1 g b.i.d.. Changed to 1 G IV b.i.d.. Resumed PO -Resumed home lacosamide and zonisamide Status at Discharge Cognitive/behavioral status at discharge: A&Ox4 Time Spent with Patient Time attestation: Total time spent providing and/or coordinating discharge services: 37 minutes Exam Narrative: General - Awake and alert. No acute distress Eyes - PERRLA, EOM intact ENT - No thrush, No erythema Neck - No noticeable or palpable swelling Lymph Nodes - No lymphadenopathy Cardiovascular - RRR no m/r/g, no JVD Lungs: Clear to auscultation, No wheezing, use of accessory muscles, no crackles or Skin - Skin warm and dry, no wounds or rashes. Right chest incision to neck has bruising, right chest well approximated Abdomen - Normal bowel sounds, abdomen soft and slightly tender low abdomen Extremities - No edema, cyanosis or clubbing Musculoskeletal - 5/5 strength, normal range of motion, no swollen or erythematous joints. Neurological ? Alert and oriented x 3, CN 2-12 grossly intact. Psych: Normal mood and affect DS: Data Data Completed and Pending Labs on day of discharge: Labs from last 24 hours 03/08/25 03/08/25 03/07/25 07:27 05:25 20:43 WBC 4.7 RBC 4.92 Hgb 14.1 Hct 42.4 MCV 86.2 MCH 28.7 MCHC 33.3 RDW 13.8 Plt Count 99 L MPV 11.7 H Immature Gran % (Auto) 0.4 Neut % (Auto) 58.0 Lymph % (Auto) 30.5 [facility] % (Auto) 6.6 Eos % (Auto) 3.4 Baso % (Auto) 1.1 Lymph # (Auto) 1.43 [facility] # (Auto) 0.3 Eos # (Auto) 0.2 Baso # (Auto) 0.1 Abs Immat Gran (auto) 0.02 Absolute Neuts (auto) 2.7 Absolute Nucleated RBC 0.000 Nucleated RBC % 0.0 % Immature Plt Fraction 7.0 Sodium 141 Potassium 3.6 Chloride 106 Carbon Dioxide 29 Anion Gap 6 BUN 11 Creatinine 0.89 Estim Creat Clear Calc 63 Estimated GFR > 60 Glucose 150 H POC Capillary Glucose 180 H 192 H Calcium 8.6 03/07/25 03/07/25 17:45 12:03 WBC RBC Hgb Hct MCV MCH MCHC RDW Plt Count MPV Immature Gran % (Auto) Neut % (Auto) Lymph % (Auto) [facility] % (Auto) Eos % (Auto) Baso % (Auto) Lymph # (Auto) [facility] # (Auto) Eos # (Auto) Baso # (Auto) Abs Immat Gran (auto) Absolute Neuts (auto) Absolute Nucleated RBC Nucleated RBC % % Immature Plt Fraction Sodium Potassium Chloride Carbon Dioxide Anion Gap BUN Creatinine Estim Creat Clear Calc Estimated GFR Glucose POC Capillary Glucose 185 H 169 H Calcium Discharge Plan Discharge Attending physician on discharge: Hailey Singer Consulting providers: Rey Reyna; Ethel Corley; Puneet Tesfaye; Avis Jackson; Daryl Ponce; Hernandez Walsh; Rey Gil Discharging Clinician: Hailey Singer Anticipated Discharge Date/Time: 03/08/25 11:01 Patient Disposition: Home Activity: may shower Diet: regular Wound Care Instructions: follow printed instructions Discharge Instructions: Tylenol and Ibuprofen first. Opiates (percocet) are only a last resort. Don't drive if taking percocet. Would take half a tab if needed before taking a full tab since it worsens constipation and risk of bowel obstruction. Continue miralax twice a day so you have daily BM's. Call about adding senna or another medication if you have constipation. Go to the ER if you have persistent vomiting or abdominal distention. Lantus dose was reduced to 10 units daily. As you eat more, you will need to in crease your dose. If all blood sugars are over 200 in 24 hours, ask your PCP about increasing your Lantus dose by 5-10 units. If you ever have blood sugars less than 80, call your PCP to adjust your insulin doses. Discharge Instruction Sheet for Portacath Placement Dr. Alan, Dr. Tesfaye, Dr. Moon, Dr. [facility] [address] [place]. [address] 1.) May shower today 2.) May resume normal light activity. 3.) No strenuous activity with upper extremity on the side of the port for 1 week. 4.) Tylenol or ibuprofen over the counter as needed for pain. 5.) Call office for any wound concerns or increasing pain. 6.) Follow up with oncologist as scheduled. Patient Instructions: Antibiotic Form Patient Language: Occitan Stand Alone Forms: General Discharge Information Follow-up/Referrals: Rey Reyna MD [Physician, Oncology] - Call for Appointment Discharge Medications: New ondansetron 4 mg tablet,disintegrating 8 mg PO Q8H Qty: 30 1RF polyethylene glycol 3350 [Miralax] 17 gram/dose powder 17 g PO BID PRN (Reason: constipation) Qty: 510 11RF oxycodone-acetaminophen [Percocet] 5-325 mg tablet 1 tablet PO Q6H PRN (Reason: pain) Qty: 10 0RF Rx Instructions: May take 1/2 or 1 tab as needed for severe pain. Max dose of acetaminophen is 4000mg per day Continued pregabalin 150 mg capsule 150 mg PO QAM zonisamide 100 mg capsule 200 mg PO DAILY Rx Instructions: Take two capsules am lacosamide 100 mg tablet 100 mg PO DAILY levetiracetam [Keppra] 500 mg Tablet 1,000 mg PO QAM Qty: 30 0RF pregabalin [Lyrica] 50 mg Capsule 300 mg BYMOUTH HS Qty: 15 0RF levetiracetam [Keppra] 500 mg Tablet 1,000 mg PO HS atorvastatin 40 mg tablet 40 mg PO DAILY pantoprazole 40 mg tablet,delayed release (DR/EC) 40 mg PO DAILY multivit with min-folic acid 0.4 mg Tablet 1 tablet PO DAILY insulin aspart U-100 [Novolog FlexPen U-100 Insulin] 100 unit/mL (3 mL) insulin pen 1 - 15 unit SUBCUT TIDWMEAL losartan 25 mg tablet 25 mg PO DAILY oxycodone 5 mg tablet 5 mg PO Q4H PRN (Reason: pain) Qty: 25 0RF Changed insulin glargine [Lantus Solostar U-100 Insulin] 100 unit/mL (3 mL) insulin pen 10 unit SUBCUT DAILY Qty: 15 0RF Date of admission: 03/03/25 17:34 Primary Care Provider: Redd De Anda Admitting Provider: Brandan Lamar Attending physician on admission: Hailey Singer Condition: Stable Quality VTE Prophylaxis VTE prophylaxis: pharmacologic ordered Hospitalist MIPS Heart Failure (Exclusion) Patient has history of Heart Transplant or Left Ventricular Assistive Device?: No IF YES, STOP HERE Heart Failure (Qualifier) Patient has current or prior documentation of LVEF less than or equal to 40%, or mod/servere depressed LVSF?: No IF NO, STOP HERE
[2025-03-08] MEDS: LOSARTAN POTASSIUM 25 MG TABLET PO (11:51)
== END 2025-03-08 13:15 | disposition home or self-care (01) | DRG 356 ==
LOC: ANHED 15:42 → ANH3MEDSUR 18:00
PROVIDERS: Internal Medicine Hematology & Oncology; Student in an Organized Health Care Education/Training Program; Surgery; Admitting Provider General Practice; Emergency Provider Emergency Medicine; PCP Internal Medicine; Visit Provider Nurse Practitioner Acute Care
PROC: 0JH60WZ Insertion of Totally Implantable Vascular Access Device into Chest Subcutaneous Tissue and Fascia, Open Approach (ICD-10-PCS; principal; 2025-03-06 15:30)
DX: C78.6 Secondary malignant neoplasm of retroperitoneum and peritoneum (principal); E43 Unspecified severe protein-calorie malnutrition; K56.609 Unspecified intestinal obstruction, unspecified as to partial versus complete obstruction; C18.1 Malignant neoplasm of appendix; I10 Essential (primary) hypertension; E11.40 Type 2 diabetes mellitus with diabetic neuropathy, unspecified; E78.5 Hyperlipidemia, unspecified; K57.30 Diverticulosis of large intestine without perforation or abscess without bleeding; K21.9 Gastro-esophageal reflux disease without esophagitis; G40.909 Epilepsy, unspecified, not intractable, without status epilepticus; H40.9 Unspecified glaucoma; Z20.822 Contact with and (suspected) exposure to COVID-19; Z96.653 Presence of artificial knee joint, bilateral; Z79.4 Long term (current) use of insulin; Z68.27 Body mass index [BMI] 27.0-27.9, adult
CPT/HCPCS: 36415; 74177; 74250; 77001; 80048; 80053; 82378; 82728; 82948; 83605; 83690; 83735; 84134; 85025; 85027; 85055; 85610; 85730; 86850; 86900; 86901; 87493; 87637; 96361; 96374; 97161; 97166; 99285; J0690; A9270; C1788; J1100; J1644; J1815; J1953; J2003; J2004; J2250; J2270; J2405; J2470; J2704; J3010; J7030; J7042; J7070; J7120; Q9967

== ENCOUNTER 2025-03-11 14:45 | Outpatient (CLI) | payer MEDICARE, SELFPAY ==
--- OUTSIDE RECORDS SUMMARY | 2013-01-16 11:00 | XMS_ITS | Continuity of Care Document ---
Author Organization [facility] Address [address] [place] [id number] Phone Care Team Providers Care Relocation Associate Name Role Phone Kirit Tee BELTRAN Unavailable [...] Diagnoses Date Provider Providers Copied on Encounter [address], [id number], tel:[phone] [place] No Information Kirit Luong [address] [facility], [facility] [address], [place], [place], [facility], [place]. tel:[phone] Referring Provider: Tamara Hoff, [address], [place], [address]. tel:[phone] [address], [place], [address], tel:[phone] [place] No Information Kirit Luong [address] [facility], [address], [place], [facility], [place]. tel:[phone] Referring Provider: Tamara Hoff, [address], [place], [address]. tel:[phone] [address], [place], [address], tel:[phone] Marcelino No Information Kirit Luong [address] [facility], [address], [place], [place], [facility], . tel:[phone] Referring Provider: Tamara Hoff, [address], [place], [address]. tel:[phone] [address], [place], [place], [address], [place] tel:[phone] Marcel[place] No Information Kirit Tee. [address] [facility], [address], [place], [address], [place]. tel:[phone] Referring Provider: Tamara Hoff, [address], [place], [address]. tel:[phone] [address], [place], [place], [address], [place] tel:[phone] [place] No Information Kirit Tee. [address] [facility], [address], [place], [address], [place]. tel:[phone] Referring Provider: Tamara Hoff, [address], [place], [address]. tel:[phone] [address], [place], [place], [address], [place] tel:[phone] Marcel[place] No Information Kirit Tee. [address] [facility], [address], [place], [address], [place]. tel:[phone] Referring Provider: Tamara Hoff, [address], [place], [address]. tel:[phone] [address], [place], [place], [address], [place] tel:[phone] Marcelino No Information Kirit Tee. [address] [facility], [address], [place], [address], [place]. tel:[phone] Referring Provider: Tamara Hoff, [address], [place], [address]. tel:[phone], [place], [place], [address], tel:[phone] [place] No Information Kirit Tee. [address] [facility], [address], [place], [facility], [place]. tel:[phone] Referring Provider: Tamara Hoff, [address], [place], [address]. tel:[phone], [place], [place], [address], [place] tel:[phone] [place] No Information Kirit Tee. [address] [facility], [address], [place], [facility], [place]. tel:[phone] Referring Provider: Tamara Hoff, [address], [place], [address]. tel:[phone] [address], [place], [place], [address], [place] tel:[phone] [place] No Information Kirit Tee. [address] [facility], [address], [place], [facility], [place]. tel:[phone] Referring Provider: Tamara Hoff, [address], [place], [address]. tel:[phone], [place], [place], [address], [place] tel:[phone] Marcel[place] No Information Kirit Tee. [address] [facility], [address], [place], [facility], [place]. tel:[phone] Referring Provider: Tamara Hoff, [address], [place], [address]. tel:[phone] [address], [place], [place], [address], [place] tel:[phone] Marcel[place] No Information Kirit Tee. [address] [facility], [address], [place], [address], [place]. tel:[phone] Referring Provider: Tamara Hoff, [address], [place], [address]. tel:[phone], [place], [place], [address], tel:[phone] Marcel[place] No Information Kirit Tee. [address] [facility], [address], [place], [address], [place]. tel:[phone] Referring Provider: Tamara Hoff, [address] [facility] [address], [place], [address]. tel:[phone], [place], [place], [address], tel:[phone] [place] No Information Kirit Tee. [address] [facility], [address], [place], [address], [place]. tel:[phone] Referring Provider: Tamara Hoff, [address] [facility] [address], [place], [address]. tel:[phone], [place], [place], [address], tel:[phone] Marcelino Pain in joint involving lower leg Kirit Tee. [address] [facility], [address], [place], [address], [place]. tel:[phone] Referring Provider: Tamara Hoff, [address], [place], [address]. tel:[phone] Family History Family Member Type Diagnosis Age At Onset No Information Payers Payer name Insurance type Covered democrat ID Authorizcharlette estrella(s) [facility] Ethan GOMES [id number] C Y 2013 Social History Type Description [...]
--- OUTSIDE RECORDS SUMMARY | 2018-12-18 10:16 | XMS_ITS | Continuity of Care Document ---
Author Organization [facility] Address [address] [facility] [place] [address] Phone Care Team Providers Care Produce Manager Name Role Phone Paul Okeefe MD Unavailable Unavailable Allergies, Adverse Reactions, Alerts Substance Reaction Status Criticality codeine Active No Information Medications Medication Instructions Dosage Effective Dates (start - stop) Status Comments Mobic 15 mg tablet take 1 tablet by oral route every day - Active Percocet 5 mg-325 mg tablet Take 1 or 2 tablets every 12 hours as needed for pain - Active NOVOLOG FLEXPEN (unknown strength) inject by subcutaneous route per prescriber's instructions. Insulin dosing requires individualization. Not Available - Active atorvastatin 20 mg tablet take 1 tablet by oral route every day 20 MG - Active TOPAMAX (unknown strength) Not Available - Active RAMIPRIL (unknown strength) Not Available - Active glipizide 5 mg tablet take 1 tablet by oral route 2 times every day before meals 5 MG - Active metformin 1,000 mg tablet take 1 tablet by oral route 2 times every day with morning and evening meals 1000 MG - Active NORTRIPTYLINE HCL (unknown strength) Not Available - Active PRAVASTATIN SODIUM (unknown strength) Not Available - Active CLOPIDOGREL (unknown strength) Not Available - Active Procedures Procedure Date OFFICE/OUTPATIENT VISIT NEW POSTOP FOLLOW-UP VISIT POSTOP FOLLOW-UP VISIT OFFICE/OUTPATIENT VISIT EST OFFICE/OUTPATIENT VISIT NEW POSTOP FOLLOW-UP VISIT POSTOP FOLLOW-UP VISIT OFFICE/OUTPATIENT VISIT NEW Advance Directives Directive Yes / No Effective Date File Name No Information Encounters Encounter Description Practice Location Reason(s) For Visit Diagnoses Date Provider Providers Copied on Encounter [facility], [address] [place] [address], [place], [address], [phone] [facility] No Information 9 Sary Miller. [address] [place] [address], [id number] . tel: [phone] OFFICE/OUTPA TIENT VISIT [facility], [address] [place] [address], [place], [address], [place] tel:[phone] [facility] Lumbar disc disease with radiculopathyCo ntusion of right hip, initial encounterContus ion of right thigh, initial encounter 9 Gordo Corbett. [address] [facility] [address], [place], [place], [address] . tel: [phone] [facility], [address] [place] [address], [address], [place] [phone] [facility] [place] Follow Up of R TKA (chief complaint) Status post right knee replacement 7 Saqib Singer. [address], [place], [place], [address] . tel: [phone] [facility], [address] [place] [address], [address], [place] [phone] [facility] [place] Follow Up of R TKA (chief complaint) Status post right knee replacement 7 Saqib Singer. [address], [place], [place], [address] . tel: [phone] [facility], [address] [place] [address], [address], [place] [phone] [facility] [place] Post-traumatic osteoarthritis of right knee 7 Saqib Singer. [address], [place], [place], [address] . tel: [phone] OFFICE/OUTPA TIENT VISIT EST [facility], [address] [facility] [address], [place], [address], [place] tel:[phone] [facility] [place] Primary osteoarthritis of right knee Mar-2 8 7 Saqib Singer. [address], [place], [place], [address] . tel: [phone] OFFICE/OUTPA TIENT VISIT [facility], [address] [place] [address], [place], [address], [place] tel:[phone] [facility] [place] Primary osteoarthritis of right knee Feb- 3 7 Saqib Singer. [address], [place], [place], [address] . tel: [phone] Referring Provider: Eric Allen, [address], [place], [address] . tel:[phone] [facility], [address] [place] [address], [place], [address], [place] tel:[phone] [facility] [place] Carpal tunnel syndrome Mar-0 4 Alex Cruz. [address], [place], [place], [id number] , [place]. tel: [phone] [facility], [address] [place] [address], [place], [address], [place] tel:[phone] [facility] [place] 1st post op R CTR (chief complaint) Carpal tunnel syndrome Jan- 4 Alex Cruz. [address], [place], [place], [address] , [place]. tel: [phone] [facility], [address] [place] [address], [place], [address], [place] tel:[phone] [facility] [place] Carpal tunnel syndrome Dec-0 4 Alex Cruz. [address], [place], [place], [address] , [place]. tel: [phone] OFFICE/OUTPA TIENT VISIT [facility], [address] [facility] [address], [place], [address], [place] [phone] [facility] [place] Carpal tunnel syndrome 4 Alex Cruz. [address], [place], [place], [address] , [place]. tel: [phone] Family History Family Member Type Diagnosis Age At Onset Father Problem (finding) 82 Father Problem (finding) Renal disease (Cause Of ) 82 Immunizations Vaccine Date Status Comments Pneumo (2 yrs or older)(PPV) administered Source: Other Provider Pneumo (2 yrs or older)(PPV) administered Source: Other Provider Payers Payer name Insurance type Covered democrat ID Authoriza tion(s) No Information Social History Type Description Quantity Date Captured Comments Alcohol Use Details Unknown Caffeine Use Details Unknown Tobacco Use Status No Information Smoking Status No Information Sex Male Chief Complaint And Reason For Visit No Information Reason For Referral Reason For Referral No Information Plan Of Treatment Date Type Action Status Referral Ordered: Blood Pressure management: Referral to general physician. (related to Elevated blood-pressure reading, without diagnosis of hypertension) ordered Referral Ordered: X-RAY EXAM HIP UNI W PELVIS 2-3 VIEWS RT ordered Referral Ordered: RADEX SPI LUMBOSAC 2/3 VIEWS ordered Referral Ordered: RADEX KNE 3 VIEWS RT ordered Referral Ordered: RADEX KNE COMPL 4/MORE VIEWS RT ordered History Of Present Illness Encounter Date Complaint History Of Prese nt Illness Follow Up of R TKA Follow Up of R TKA 1st post op R CTR Functional Status Date Functional Assessmen t No Information Instructions Date Instruction Additional Infor mation Activity as tolerated. Related t o Lumbar disc disease with radiculopathy Take medication as directed. Rel ated to Lumbar disc disease with radiculopathy Apply ice and/or heat as tolerat ed Related to Lumbar disc disease with radiculopathy Weight monitoring Related to Bod y mass index (BMI) 32.0-32.9, adult increase activity as instructed Related to Status post right knee replacement take medications as directed Rel ated to Status post right knee replacement Assessments Type Assessment Date No Information Patient Care Teams Name Effective Dates (start - stop) Status Members No Information
--- OUTSIDE RECORDS SUMMARY | 2024-01-21 10:42 | XMS_ITS | Continuity of Care Document ---
Author Organization [employer] [facility] Address [address] [place] [address] Phone Care Team Providers Care Cart Pusher Name Role Phone Eric Allen DO Unavailable [...] MG - Active Procedures Procedure Date OFFICE [id number]-LUEERAKA Admin influenza virus vac FLU VACC PRSV FREE INC ANTIG CBC, INC PLATELETS AND DIFFERENTIAL COMPREHEN METABOLIC PANEL CMP FERRITIN LEVEL HEMOGLOBIN A1C HGA1C, GLYCO IRON (FE), TOTAL TIBC, & % SATURATION PHOSPHORUS (PO4), INORGANIC (S) 022 PARATHYROID HORMONE (PTH) VITAMIN D, 25-HYDROXY ROUTINE VENIPUNCTURE OFFICE [id number] CBC, INC PLATELETS AND DIFFERENTIAL HEMOGLOBIN A1C HGA1C, GLYCO IRON (FE), TOTAL TIBC, & % SATURATION RETICYTE/HGB CONCENTRATE ROUTINE VENIPUNCTURE CBC, INC PLATELETS AND DIFFERENTIAL FERRITIN LEVEL IRON (FE), TOTAL Fecal Occult Blood - Mdcr OL ROUTINE VENIPUNCTURE CBC, INC PLATELETS AND DIFFERENTIAL ROUTINE VENIPUNCTURE Fecal Occult Blood - Mdcr OL OFFICE [id number] CBC, INC PLATELETS AND DIFFERENTIAL COMPREHEN METABOLIC PANEL CMP HEMOGLOBIN A1C HGA1C, GLYCO LIPID PANEL MICROALBUMIN, QN (URINE) CREATININE, (U-R) THYROID STIMULATION HORMONE(TSH) 2021 ROUTINE VENIPUNCTURE LDL-CHOLESTEROL, DIRECT FERRITIN LEVEL IRON (FE), TOTAL TIBC, & % SATURATION HEMOGLOBIN A1C HGA1C, GLYCO ROUTINE VENIPUNCTURE Admin influenza virus vac FLU VACC PRSV FREE INC ANTIG HEMOGLOBIN A1C HGA1C, GLYCO RENAL FUNCTION PANEL ROUTINE VENIPUNCTURE OFFICE [id number] CBC, INC PLATELETS AND DIFFERENTIAL COMPREHEN METABOLIC PANEL CMP FOLIC ACID (S) (FOLATE) HEMOGLOBIN A1C HGA1C, GLYCO MAGNESIUM (MG), SERUM MICROALBUMIN, QN (URINE) CREATININE, (U-R) PSA, TOTAL, SCREENING MEDICARE ONLY VITAMIN B12 (SERUM) ROUTINE VENIPUNCTURE Removal Impacted Cerumen Irrigation/Lava ge, Unilateral URINALYSIS, DIPSTICK (UA) - Office Lab A OFFICE [id number] HEMOGLOBIN A1C HGA1C, GLYCO LIPID PANEL ROUTINE VENIPUNCTURE OFFICE [id number] COMPREHEN METABOLIC PANEL CMP 1 HEMOGLOBIN A1C HGA1C, GLYCO LIPID PANEL MICROALBUMIN, QN (URINE) CREATININE, (U-R) ROUTINE VENIPUNCTURE BASIC METABOLIC PANEL(BMP) ROUTINE VENIPUNCTURE OFFICE [id number] Admin influenza virus vac FLU VACC PRSV FREE INC ANTIG OFFICE [id number] BASIC METABOLIC PANEL(BMP) HEMOGLOBIN A1C HGA1C, GLYCO ROUTINE VENIPUNCTURE OFFICE [id number] CBC, INC PLATELETS AND DIFFERENTIAL COMPREHEN METABOLIC PANEL [facility] 0 HEMOGLOBIN A1C HGA1C, GLYCO LIPID PANEL MICROALBUMIN, QN (URINE) CREATININE, (U-R) PSA, TOTAL, SCREENING MEDICARE ONLY THYROID STIMULATION HORMONE(TSH) 2019 ROUTINE VENIPUNCTURE LDL-CHOLESTEROL, DIRECT TISSUE EXAM BY PATHOLOGIST COLONOSCOPY, REMOVAL SNARE TECH 020 CBC, INC PLATELETS AND DIFFERENTIAL COMPREHEN METABOLIC PANEL [facility] 9 ROUTINE VENIPUNCTURE HEMOGLOBIN A1C HGA1C, GLYCO MICROALBUMIN, QN (URINE) CREATININE, (U-R) OFFICE [id number]-ACS-[id number] CBC, INC PLATELETS AND DIFFERENTIAL ROUTINE VENIPUNCTURE DSCHRG MED/CURRENT MED MERGE Admin influenza virus vac FLU VACC PRSV FREE INC ANTIG BASIC METABOLIC PANEL(BMP) CBC, INC PLATELETS AND DIFFERENTIAL ROUTINE VENIPUNCTURE OFFICE [id number] DSCHRG MED/CURRENT MED MERGE URINALYSIS, DIPSTICK (UA) - Office Lab J OFFICE [id number]-[id number] CBC, INC PLATELETS AND DIFFERENTIAL ROUTINE VENIPUNCTURE OFFICE [id number] Advance Directives Directive Yes / No Effective Date File Name No Information Encounters Encounter Description Practice Location Reason(s) For Visit Diagnoses Date Provider Providers Copied on Encounter [facility], [address], [place], [place], [address] , tel: [phone] [place] No Information 4 Alejandro Reyes. [address] [place] [address], [id number], . tel:[phone] [facility], [address], [place], [place], [address] , tel: [phone] [place] No Information 4 Alejandro Reyes. [address] [place] [address], [place], [address], [place]. tel:[phone] [facility], [address], [place], [place], [address] , tel: [phone] [place] No Information 3 Alejandro Reyes. [address] [place] [address], [place], [place], [address], [place]. tel:[phone] [facility], [address], [place], [place], [address] , tel: [phone] [place] No Information 3 Alejandro Reyes. [address] [place] [address], [place], [place], [address], [place]. tel:[phone] [facility], [address], [place], [place], [address] , tel: [phone] [place] No Information 3 Alejandro Reyes. [address], [address], [place], [place], [address], [place]. [phone] [facility], [address], [place], [place], [address] , tel: [phone] [place] No Information 2 Alejandro Reyes. [address], [address], [place], [place], [address], [place]. [phone] [facility], [address], [place], [place], [address] , [place] tel: [phone] [place] No Information 2 Alejandro Reyes. [address], [address], [place], [place], [address], [place]. tel:[phone] OFFICE OXVPB-PXU-RD TAILED [facility], [address], [place], [place], [address] , tel: [phone] [place] Chronic conditions (chief complaint) Body mass index [...] 2 Alejandro Reyes. [address], [address], [place], [place], [address], [place]. tel:[phone] Referring Provider: Eric Allen, [address] [place] [address], [place], [address] . tel:[phone] [facility], [address], [place], [place], [address] , [place] tel: [phone] [place] No Information Feb-0 2 Alejandro Reyes. [address] [place] [address], [address], [place], [place], [address], [place]. tel:[phone] [facility], [address], [place], [place], [address] , [place] tel: [phone] [place] Sciatic pain, unspecified laterality Sep-1 2 Alejandro Reyes. [address] [place] [address], [facility] [address], [place], [place], [address], [place]. tel:[phone] OFFICE UJSYY-KIG-SW PANDED [facility], [address], [place], [place], [address] , tel: [phone] [place] Patient encounter (chief complaint) Nasal congestionSci atic pain, unspecified laterality Sep-0 2 Larissa Arnett. [address] [place] [address], [place] [address], [place], [place], [address], [place]. tel:[phone] Referring Provider: Eric Allen, [address] [place] [address], [place], [address] . tel:[phone] [facility], [address], [place], [place], [address] , [place] tel: [phone] [place] No Information Dec-0 2 Alejandro Reyes. [address] [place] [address], [place] [address], [place], [place], [address], [place]. tel:[phone] [facility], [address], [place], [place], [address] , [place] tel:[phone] [place] Anemia, unspecified type Nov-0 2 Alejandro Reyes. [address] [place] [address], [place] [address], [place], [place], [address], [place]. tel:[phone] Referring Provider: Eric Allen, [address] [place] [address], [place], [address] . tel:[phone] [facility], [address], [place], [place], [address] , tel:[phone] [place] No Information 2 Alejandro Reyes. [address] [place] [address], [place] [address], [place], [place], [address], . tel:[phone] [facility], [address], [place], [place], [address] , tel:[phone] [place] Anemia, unspecified type 2 Bryan Zaldivar. [address] [place] [address], [address], [place], [place], [address], [place]. tel:[phone] Referring Provider: Zen Adams, [address] [place] [address], [place], [address] . tel:[phone] [facility], [address], [place], [place], [address] , tel:[phone] [place] Anemia, unspecified type 2 Alejandro Reyes. [address] [place] [address], [facility], [place], [place], [address], . tel:[phone] Referring Provider: Eric Allen, [address] [place] [address], [place], [address] . tel:[phone] [facility], [address], [place], [place], [address] , [phone] [place] Colon cancer screening Aug-2 2 Alejandro Reyes. [address] [place] [address], [place] [address], [place], [place], [address], . tel:[phone] Referring Provider: Eric Allen, [address] [place] [address], [place], [address] . tel:[phone] OFFICE BCRGB-UQY-ZR [facility], [address], [place], [place], [address] , tel:[phone] [place] .CC (chief complaint) Type 2 diabetes mellitus [...] lyla, unspecified type 2 Alejandro Reyes. [address] [place] [address], [place] [address], [place], [place], [address], . tel:[phone] Referring Provider: Eric Allen, [address] [place] [address], [place], [address] . tel:[phone] [facility], [address], [place], [place], [address] , [place] tel:[phone] [facility] [facility] (chief complaint) Type 2 diabetes mellitus with diabetic polyneuropath y, with long-term current use of insulin 2 Pricila Avila. [address] [place] [address], [place], [place], [address], [place]. tel:[phone] [facility], [address], [place], [place], [address] , [place] [phone] [place] Type 2 diabetes mellitus with diabetic polyneuropath y, with long-term current use of insulin 2 Alejandro Reyes. [address] [place] [address], [place], [place], [address], . tel:[phone] Referring Provider: Eirc Allen, [address] [place] [address], [place], [address] . tel:[phone] [facility], [address], [place], [place], [address] , [place] tel:[phone] [place] No Information 1 Alejandro Reyes. [address] [place] [address], [place], [place], [address], [place]. tel:[phone] [facility], [address], [place], [place], [address] , [place] tel:[phone] [facility] (chief complaint) Type 2 diabetes mellitus with diabetic polyneuropath y, with long-term current use of insulin 1 Pricila Avila. [address] [facility] [address], [place], [place], [address], . tel:[phone] OFFICE YDWCJ-BOP-YR [facility], [address], [place], [place], [address] , [place] [phone] [place] chronic condition (chief complaint) Body mass index [...] 3bSenile purpuraGriefI mmunization counseling 1 Alejandro Reyes. [address] [place] [address], [facility] [address], [place], [place], [address], . tel:[phone] Referring Provider: Eric Allen, [address] [place] [address], [place], [address] . tel:[phone] [facility], [address], [place], [place], [address] , [place] tel:[phone] [facility] No Information 1 Alejandro Reyes. [address] [place] [address], [place] [address], [place], [place], [address], [place]. tel:[phone] [facility], [address], [place], [place], [address] , [place] [phone] [place] ear clogged , legs feel heavy (chief complaint)b ilateral ear (chief complaint) Body mass index (BMI) 32.0-32.9, adultType 2 diabetes mellitus with diabetic polyneuropath y, with long-term current use of insulinEncoun ter for screening for malignant neoplasm of prostateImpac cierra cerumen, bilateral Aug-0 2-202 1 Negar Parker. [address] [facility], [address], [place], [place], [address], [place]. tel:[phone] Referring Provider: Eric Allen, [address] [place] [address], [place], [address] . tel:[phone] [facility], [address], [place], [place], [address] , [place] tel: [phone] [place] Nonintractabl e epilepsy without status epilepticus, unspecified epilepsy type 1 Alejandro Reyes. [address] [place] [address], [facility] [address], [place], [place], [address], [place]. tel:[phone] [facility], [address], [place], [place], [address] , [place] tel: [phone] [place] Type 2 diabetes mellitus with diabetic polyneuropath y, with long-term current use of insulin 1 Alejandro Reyes. [address] [place] [address], [facility] [address], [place], [place], [address], [place]. tel:[phone] Referring Provider: Eric Allen, [address] [place] [address], [place], [address] . tel:[phone] [facility], [address], [place], [place], [address] , [place] tel: [phone] [facility] [facility] (chief complaint) Type 2 diabetes mellitus with diabetic polyneuropath y, with long-term current use of insulinEpilep sy, unspecified, not intractable, without status epilepticusHi story of transient ischemic attack (TIA)Sciatica , unspecified lateralityObe sity (BMI 30.0-34.9)Hyp ertensive kidney disease with stage 3a chronic kidney diseaseHypert riglyceridemi aAcute gastritis with hemorrhage, unspecified gastritis type 1 Pricila Avila. [address], [facility] [address], [place], [place], [address], [place]. tel:[phone] OFFICE MYWKO-RLE-XL TAILED [facility], [address], [place], [place], [address] , [place] tel:[phone] [place] Chronic conditions (chief complaint) Type 2 diabetes mellitus with diabetic polyneuropath y, with long-term current use of insulinLong term (current) use of insulinHypert ensive kidney disease with stage 3a chronic kidney diseaseChroni c kidney disease, stage 3aHypertrigly ceridemiaHist ory of transient ischemic attack (TIA)History of cardiomyopath yEpilepsy, unspecified, not intractable, without status epilepticusOb esity (BMI 30.0-34.9)Sci atica, unspecified laterality 1 Alejandro Reyes. [address], [facility] [address], [place], [place], [address], . tel:[phone] Referring Provider: Eric Allen, [address] [place] [address], [place], [address] . tel:[phone] OFFICE TUTYY-VZB-US [facility], [address], [place], [place], [address] , tel:[phone] [place] Lesion on bottom of right foot (chief complaint) Body mass index (BMI) 32.0-32.9, adultType 2 diabetes mellitus with diabetic polyneuropath y, with long-term current use of insulinObesit y (BMI 30.0-34.9)Kamryn lulitis of lower extremity, unspecified laterality 0 Larissa Arnett. [address] [place] [address], [place] [address], [place], [place], [address], . tel:[phone] Referring Provider: Eric Allen, [address] [place] [address], [place], [address] . tel:[phone] OFFICE ETNOS-DUR-IS [facility], [address], [place], [place], [address] , tel:[phone] [place] chronic conditions (chief complaint) Type 2 diabetes [...] of cardiomyopath y 0 Mar Johnson. [address] [place] [address], [place] [address], [place], [place], [address]. tel:[phone] Referring Provider: Eric Allen, [address] [place] [address], [place], [address] . tel:[phone] [facility], [address], [place], [place], [address] , tel:[phone] [place] Type 2 diabetes mellitus with polyneuropath y 0 Alejandro Reyes. [address] [place] [address], [place], [place], [address], . tel:[phone] Referring Provider: Eric Allen, [address] [place] [address], [place], [address] . tel:[phone] [employer] [facility], [address], [place], [place], [address] , tel:[phone] [place] No Information 0 Alejandro Reyes. [address] [place] [address], [place], [place], [address], . tel:[phone] [employer] [facility], [address], [place], [place], [address] , tel:[phone] [place] No Information 0 Alejandro Reyes. [address] [place] [address], [place], [place], [address], . tel:[phone] OFFICE MHNFT-SDI-BG TAILED [facility], [address], [place], [place], [address] , tel:[phone] [place] Chronic condition (chief complaint) Type 2 diabetes mellitus with polyneuropath yBenign hypertensionO ther hyperlipidemi aEpilepsy, unspecified, not intractable, without status epilepticusHx of TIA (transient ischemic attack) and strokeSciatic a, unspecified lateralityObe sity (BMI 30-39.9)Body mass index (BMI) 31.0-31.9, [facility] r for screening for malignant neoplasm of prostate 0 Alejandro Reyes. [address] [place] [address], [address], [place], [place], [address], [place]. tel:[phone] Referring Provider: Eric Allen, [address] [place] [address] [address], [place], [address] . tel:[phone] [facility], [address], [place], [place], [address] , [place] tel: [phone] [place] Encounter for diabetic foot exam 0 Alejandro Reyes. [address] [place] [address], [address], [place], [place], [address], [place]. tel:[phone] [facility], [address], [place], [place], [address] , [place] tel: [phone] [place] Sciatica, unspecified laterality 0 Alejandro Reyes. [address] [place] [address], [address], [place], [place], [address], [place]. tel:[phone] [facility], [address], [place], [place], [address] , [place] tel: [phone] [place] Epilepsy, unspecified, not intractable, without status epilepticus 0 Alejandro Reyes. [address] [place] [address], [address], [place], [place], [address], [place]. tel:[phone] [facility], [address], [place], [place], [address] , [place] tel: [phone] [facility] No Information 0 Caleb Alvarado. [address] [place], [address], [place]. tel:[phone] Referring Provider: Eric Allen, [address] [place] [address] [address], [place], [address] . tel:[phone] [facility], [address], [place], [place], [address] , [place] tel: [phone] [facility] No Information 0 Joel Viera. [address] [facility], [address], [address], [place]. tel:[phone] Referring Provider: Eric Allen, [address] [place] [address], [place], [address] . tel:[phone] OFFICE FVEMH-HUL-AZ [facility], [address], [place], [place], [address] , [place] tel:[phone] [place] chronic condition (chief complaint) Type 2 diabetes mellitus with polyneuropath yBody mass index (BMI) 32.0-32.9, adultBenign hypertensionO ther hyperlipidemi aEpilepsy, unspecified, not intractable, without status epilepticusOb esity (BMI 30-39.9)Hx of TIA (transient ischemic attack) and strokeAcute gastritis with hemorrhage, unspecified gastritis typeIron deficiency anemia, unspecified iron deficiency anemia typeSciatica, unspecified laterality 9 Alejandro Reyes. [address] [place] [address], [address], [place], [place], [address], [place]. tel:[phone] Referring Provider: Eric Allen, [address] [place] [address], [place], [address] . tel:[phone] [facility], [address], [place], [place], [address] , [place] tel:[phone] [place] Iron deficiency anemia, unspecified iron deficiency anemia typeAbdominal pain, unspecified abdominal location Sep-2 9 Mar Johnson. [address] [place] [address], [place] [address], [place], [place], [address]. tel:[phone] [facility], [address], [place], [place], [address] , [place] tel:[phone] [place] Anemia, unspecified Sep-2 - 9 Mar Johnson. [address] [place] [address], [place] [address], [place], [place], [address]. tel:[phone] Referring Provider: Eric Allen, [address] [place] [address], [place], [address] . tel:[phone] [facility], [address], [place], [place], [address] , tel: [phone] [place] Anemia, unspecified type Mar Johnson. [address] [place] [address], [facility] [address], [place], [place], [address]. tel:[phone] OFFICE IRGAH-DTE-KY [facility], [address], [place], [place], [address] , [place] tel: [phone] [facility] follow up (chief complaint) Body mass index (BMI) 31.0-31.9, adultType 2 diabetes mellitus with polyneuropath yIron deficiency anemia, unspecified iron deficiency anemia typeHistory of abdominal painEncounter for therapeutic drug level monitoring Mar Monacon. [address] [place] [address], [place] [address], [place], [place], [address]. tel:[phone] Referring Provider: Eric Allen, [address] [place] [address], [place], [address] . tel:[phone] [facility], [address], [place], [place], [address] , [place] tel: [phone] [place] No Information Alejandro Reyes. [address] [place] [address], [place] [address], [place], [place], [address], [place]. tel:[phone] Referring Provider: Eric Allen, [address] [place] [address], [place], [address] . tel:[phone] [facility], [address], [place], [place], [address] , [place] tel:[phone] [place] Abdominal pain, unspecified abdominal locationLeuko cytes in urine Alejandro Reyes. [address] [place] [address], [place] [address], [place], [place], [address], [place]. tel:[phone] Referring Provider: Eric Allen, [address] [place] [address], [place], [address] . tel:[phone] OFFICE ROPMK-ICJ-IK [facility], [address], [place], [place], [address] , [place] tel: [phone] [place] Stomach pains x 3 days. Vomiting (chief complaint) Body mass index (BMI) 31.0-31.9, adultGenerali zed abdominal painType 2 diabetes mellitus with polyneuropath ySciatica, unspecified laterality 9 Dias Hope. [address] [place] [address], [place] [address], [place], [place], [address], [place]. tel:[phone] Referring Provider: Eric Allen, [address] [place] [address] [address], [place], [address] . tel:[phone] [employer] [facility], [address], [place], [place], [address] , tel: [phone] [place] Right hip painTraumatic hematoma of right thigh, subsequent encounter 9 Alejandro Reyes. [address] [place] [address], [place] [address], [place], [place], [address], [place]. tel:[phone] [employer] [facility], [address], [place], [place], [address] , [place] tel: [phone] [place] Epilepsy, unspecified, not intractable, without status epilepticus Alejandro Reyes. [address] [place] [address], [place] [address], [place], [place], [address], [place]. tel:[phone] [facility], [address], [place], [place], [address] , [place] tel: [phone] [place] Right hip pain 9 Alejandro Reyes. [address] [place] [address], [place] [address], [place], [place], [address], [place]. tel:[phone] OFFICE POIYN-POL-AT PANDED [facility], [address], [place], [place], [address] , [place] tel: [phone] [place] R leg pain after fall (chief complaint) Body mass index (BMI) 32.0-32.9, adultTraumati c hematoma of right thigh, subsequent encounterStat us post fallThrombocy topeniaEncoun ter for screening colonoscopy 9 Alejandro Lewis [address] [place] [address], [address], [place], [place], [address], . tel:[phone] Referring Provider: Eric Allen, [address] [place] [address], [place], [address] . tel:[phone] [facility], [address], [place], [place], [address] , tel: [phone] [place] No Information 8 Alejandro Reyes. [address] [place] [address], [place] [address], [place], [place], [address], [place]. tel:[phone] [facility], [address], [place], [place], [address] , tel: [phone] [place] Type 2 diabetes mellitus with polyneuropath y 8 Alejandro Reyes. [address] [place] [address], [place] [address], [place], [place], [address], . tel:[phone] Referring Provider: Eric Allen, [address] [place] [address] Suite [facility], [place], [address] . tel:[phone] [employer] [facility], [address], [place], [place], [address] , tel: [phone] [place] Benign hypertension Sep- 8 Alejandro Reyes. [address] [place] [address], [place] [address], [place], [place], [address], . [phone] Referring Provider: Eric Allen, [address] [place] [address], [place], [address] . tel:[phone] [facility], [address], [place], [place], [address] , tel: [phone] [place] Type 2 diabetes mellitus with polyneuropath yBenign hypertensionO ther hyperlipidemi aEpilepsy, unspecified, not intractable, without status epilepticusOb esity (BMI 30-39.9)Encou nter for immunizationS creening PSA (prostate specific antigen)Jaw pain Sep-0 8 Alejandro Reyes. [address] [place] [address], [place] [address], [place], [place], [address], [place]. tel:[phone] Referring Provider: Eric Allen, [address] [place] [address] [address], [place], [address] . tel:[phone] [facility], [address], [place], [place], [address] , [place] tel: [phone] [place] Epilepsy, unspecified, not intractable, without status epilepticus 8 Alejandro Reyes. [address] [place] [address], [address], [place], [place], [address], [place]. tel:[phone] [facility], [address], [place], [place], [address] , [place] tel: [phone] [place] Diabetic eye examEncounter for examination of eyes and vision without abnormal findings 7 Alejandro Reyes. [address] [place] [address], [place] [address], [place], [place], [address], . tel:[phone] [facility], [address], [place], [place], [address] , [place] tel: [phone] [place] Low back pain, unspecified back pain laterality, unspecified chronicity, with sciatica presence unspecified 7 Alejandro Reyes. [address] [place] [address], Suite [facility], [place], [place], [address], [place]. tel:[phone] [facility], [address], [place], [place], [address] , [place] tel: [phone] [place] Low back pain Apr-0 7 Alejandro Reyes. [address] [place] [address], [address], [place], [place], [address], [place]. tel:[phone] [facility], [address], [place], [place], [address] , [place] tel: [phone] [place] Low back pain Mar- 7 Alejandro Lewis [address] [place] [address], [address], [place], [place], [address], [place]. tel:[phone] [facility], [address], [place], [place], [address] , [place] tel: [phone] [place] Type 2 diabetes mellitus with polyneuropath yBenign hypertensionO ther hyperlipidemi aEpilepsy, unspecified, not intractable, without status epilepticusOb esity (BMI 30-39.9)Encou nter for immunizationT hrombocytopen ia Alejandro Reyes. [address] [place] [address], [place] [address], [place], [place], [address], [place]. tel:[phone] Referring Provider: Eric Allen, [address] [place] [address] [address], [place], [address] . tel:[phone] [facility], [address], [place], [place], [address] , [place] tel: [phone] [place] Arthritis of knee, right Alejandro Reyes. [address] [place] [address], [place] [address], [place], [place], [address], [place]. tel:[phone] [facility], [address], [place], [place], [address] , [place] tel: [phone] [place] Hospital discharge follow-upStat us post total right knee replacementOs teoarthritis of right knee, unspecified osteoarthriti s typeBenign hypertensionT ype 2 diabetes mellitus with polyneuropath yOther hyperlipidemi aEncounter for immunization Alejandro Reyes. [address] [place] [address], [place] [address], [place], [place], [address], [place]. tel:[phone] Referring Provider: Eric Allen, [address] [place] [address], [place], [address] . tel:[phone] [facility], [address], [place], [place], [address] , [place] tel: [phone] [place] Thrombocytope benita Alejandro Reyes. [address] [place] [address], [place] [address], [place], [place], [address], [place]. tel:[phone] Referring Provider: Eric Allen, [address] [place] [address], [place], [address] . tel:[phone] [facility], [address], [place], [place], [address] , [place] tel: [phone] [place] Abnormal blood finding 7 Bryan Zaldivar. [address], [place] [address], [place], [place], [address], [place]. tel:[phone] [facility], [address], [place], [place], [address] , [place] tel: [phone] [place] Sciatica of left side 7 Alejandro Reyes. [address] [place] [address], [place] [address], [place], [place], [address], [place]. tel:[phone] [facility], [address], [place], [place], [address] , [place] tel: [phone] [place] Sciatica of left side 7 Alejandro Reyes. [address] [place] [address], [place] [address], [place], [place], [address], [place]. tel:[phone] [facility] [employer], [address], [place], [place], [address] , [place] tel: [phone] [place] Sciatica, unspecified lateralitySci atica of left sideLow back pain 0 7 Alejandro Reyes. [address] [place] [address], [place] [address], [place], [place], [address], [place]. tel:[phone] [employer], [address], [place], [place], [address] , [place] tel: [phone] [place] Sciatica of left sideFall, subsequent encounterLow back pain 7 Alejandro Reyes. [address] [place] [address], [place] [address], [place], [place], [address], [place]. tel:[phone] Referring Provider: Eric Allen, [address] [place] [address], [place], [address] . tel:[phone] [facility] [employer], [address], [place], [place], [address] , [place] tel: [phone] [place] Sciatica of left sideBenign hypertension 7 Bettye Diaz. [address], [address], [place], [place], [address], [place]. tel:[phone] Referring Provider: Eric Allen, [address] [place] [address] [address], [place], [address] . tel:[phone] [employer], [address], [place], [place], [address] , [place] tel: [phone] [place] Type 2 diabetes mellitus with polyneuropath y 6 Alejandro Reyes. [address] [place] [address], [facility] 300, [place], [place], [address], [place]. tel:[phone] [employer], [address], [place], [place], [address] , [place] tel: [phone] [place] Low back pain 6 Alejandro Reyes. [address] [place] [address], [place] [address], [place], [place], [address], [place]. tel:[phone] [employer], [address], [place], [place], [address] , [place] tel: [phone] [place] Right kidney stone 6 Alejandro Reyes. [address] [place] [address], [place] [address], [place], [place], [address], [place]. tel:[phone] [employer], [address], [place], [place], [address] , [place] tel: [phone] [place] Low back painType 2 diabetes mellitus with polyneuropath yEssential (primary) hypertensionH yperlipidemia , unspecifiedEp ilepsy, unspecified, not intractable, without status epilepticusGe neralized abdominal painRight kidney stone 6 Alejandro Reyes. [address] [place] [address], [place] [address], [place], [place], [address], [place]. tel:[phone] Referring Provider: Eric Allen, [address] [place] [address], [place], [address] . tel:[phone] [facility], [address], [place], [place], [address] , [place] tel: [phone] [place] Epilepsy, unspecified, not intractable, without status epilepticus 6 Alejandro Reyes. [address], [facility] 300, [place], [place], [address], [place]. tel:[phone] [facility], [address], [place], [place], [address] , [place] tel: [phone] [place] Epilepsy, unspecified, not intractable, without status epilepticus 5 Alejandro Reyes. [address], [facility] 300, [place], [place], [address], [place]. tel:[phone] [facility], [address], [place], [place], [address] , tel: [phone] [place] Ulcer of left heelDiarrheaL umbago 5 Halenkamp Radha. [address] [place] [address], [facility] 300, [place], [place], [address]. tel:[phone] Referring Provider: Eric Allen, [address] [place] [address], [place], [address] . tel:[phone] [facility], [address], [place], [place], [address] , [place] tel: [phone] [place] Ulcer of left heelPolyneuro esteban in diabetesType II diabetes mellitus 5 Halenkamp Radha. [address] [place] [address], [facility] 300, [place], [place], [address]. tel:[phone] Referring Provider: Eric Allen, [address] [place] [address], [place], [address] . tel:[phone] [facility], [address], [place], [place], [address] , [place] tel: [phone] [place] Right low back painLoose stools 5 Larissa Arnett. [address] [place] [address], [facility] 300, [place], [place], [address], [place]. tel:[phone] Referring Provider: Eric Allen, [address] [place] [address], [place], [address] . tel:[phone] [facility], [address], [place], [place], [address] , tel:[phone] [place] Type II diabetes mellitus with neurological manifestation sPolyneuropat hy in diabetesSplen omegalyNAFLD (nonalcoholic fatty liver disease)HTN (hypertension ), benignHyperli pidemiaRadicu lopathy of arm 5 Alejandro Reyes. [address] [place] [address], [facility] 300, [place], [place], [address], [place]. tel:[phone] Referring Provider: Eric Allen, [address] [place] [address], [place], [address] . tel:[phone] [facility], [address], [place], [place], [address] , tel:[phone] [place] Leukocytosis, unspecifiedOt her nonspecific findings on examination of blood 4 Mar Johnson. [address] [place] [address], [place] [address], [place], [place], [address]. tel:[phone] [employer], [address], [place], [place], [address] , [place] tel:[phone] [place] ObesityUpper abdominal painUpper respiratory infectionAcut e bronchitisTho racic sprain and strainDM (diabetes mellitus), type 2, uncontrolled w/neurologic complicationP olyneuropathy in diabetesSplen omegalyFatty liver 4 Mar Johnson. [address] [place] [address], [place] [address], [place], [place], [address]. tel:[phone] Referring Provider: Eric Allen, [address] [place] [address], [place], [address] . tel:[phone] [facility], [address], [place], [place], [address] , tel:[phone] [place] SplenomegalyN AFLD (nonalcoholic fatty liver disease)Cele lithiasisType II diabetes mellitus with neurological manifestation sPolyneuropat hy in diabetesHyper lipidemia 4 Alejandro Reyes. [address] [place] [address], [address], [place], [place], [address], [place]. tel:[phone] Referring Provider: Eric Allen, [address] [place] [address] [address], [place], [address] . tel:[phone] [facility], [address], [place], [place], [address] , tel: [phone] [place] Benign hypertensionA bdominal pain, acuteObesityP olyneuropathy in diabetesDM (diabetes mellitus), type 2, uncontrolled w/neurologic complication 4 Mar Johnson. [address] [place] [address], [address], [place], [place], [address]. tel:[phone] Referring Provider: Eric Allen, [address] [place] [address] [address], [place], [address] . tel:[phone] [employer], [address], [place], [place], [address] , tel: [phone] [place] No Information 4 Alejandro Reyes. [address] [place] [address], [address], [place], [place], [address], [place]. tel:[phone] Referring Provider: Eric Allen, [address] [place] [address] [address], [place], [address] . tel:[phone] [employer], [address], [place], [place], [address] , tel:[phone] [place] Type II diabetes mellitus, uncontrolled 4 Alejandro Reyes. [address] [place] [address], [address], [place], [place], [address], [place]. tel:[phone] Referring Provider: Eric Allen, [address] [place] [address] Suite [facility], [place], [address] . tel:[phone] [employer], [address], [place], [place], [address] , tel: [phone] [place] ObesitySPECIA L SCREENING FOR MALIGNANT NEOPLASMS, OTHER SITESDiabetes Mellitus, Adult Onset, UncontrolledB ronchitis, AcuteSinusiti s, AcuteHyperten stanford, BenignEpileps y, unspecified, without mention of intractable epilepsy 4 Mar Monacon. [address] [place] [address], [facility] 300, [place], [place], [address]. tel:[phone] Referring Provider: Eric Allen, [address] [place] [address], [place], [address] . tel:[phone] [facility], [address], [place], [place], [address] , [place] tel: [phone] [place] Acute bronchitisHyp ertension, Benign 4 Bettye Diaz. [address] [place] [address], [address], [place], [place], [address], [place]. tel:[phone] Referring Provider: Eric Allen, [address] [place] [address], [place], [address] . tel:[phone] [facility] [employer], [address], [place], [place], [address] , [place] tel: [phone] [place] No Information 3 Alejanrdo Reyes. [address] [place] [address], [place] [address], [place], [place], [address], [place]. tel:[phone] [facility], [address], [place], [place], [address] , [place] tel: [phone] [place] NEED FOR PROPHYLACTIC VACCINATION AND INOCULATION, INFLUENZABack ache, unspecifiedFl ank painObesity, unspecifiedDi abetes mellitus without mention of complication, type II or unspecified type, uncontrolled 0 3 Alejandro Reyes. [address] [place] [address], [facility] 300, [place], [place], [address], [place]. tel:[phone] Referring Provider: Eric Allen, [address] [place] [address], [place], [address] . tel:[phone] [facility], [address], [place], [place], [address] , tel: [phone] [place] Left knee DJDPre-op examDM (diabetes mellitus), type 2 with neurological cPolyneuropat hy in diabetesBenig n essential hypertensionH ypertriglycer idemiaElev transaminase/ LDH 3 Larissa Arnett. [address], [facility] [address], [place], [place], [address], . tel:[phone] Referring Provider: Chetan Brink, [address], [place], [address]. tel:[phone] [facility], [address], [place], [place], [address] , [place] tel: [phone] [place] Diabetes mellitus without mention of complication, type II or unspecified type, uncontrolledP olyneuropathy in diabetesBenig n essential hypertensionO ther and unspecified hyperlipidemi aUnspecified arthropathy involving lower legEsophageal reflux 2 Pricila Avila. [address], [address], [place], [place], [address], [place]. tel:[phone] [facility], [address], [place], [place], [address] , [place] tel: [phone] [place] NEED FOR PROPHYLACTIC VACCINATION WITH COMBINED DIPHTHERIA-TE TANUS-PERTUSS IS (DTP) (DTAP) VACCINENEED FOR PROPHYLACTIC VACCINATION AND INOCULATION, OTHER VIRAL DISEASESDiabe felipe mellitus without mention of complication, type II or unspecified type, uncontrolledU nspecified idiopathic peripheral neuropathyEnt hesopathy of knee, unspecifiedBe nign essential hypertensionO besity, unspecified 2 Alejandro Reyes. [address], [address], [place], [place], [address], [place]. tel:[phone] Referring Provider: Eric Allen, [address] [place] [address] [address], [place], [address] . tel:[phone] [facility], [address], [place], [place], [address] , tel: [phone] [place] Benign essential hypertensionD iabetes mellitus without mention of complication, type II or unspecified type, uncontrolledO ther and unspecified hyperlipidemi aScreening for malignant neoplasms of the prostate 2 Alejandro Reyes. [address] [place] [address], [address], [place], [place], [address], [place]. tel:[phone] Referring Provider: Eric Allen, [address] [place] [address] [address], [place], [address] . tel:[phone] [facility], [address], [place], [place], [address] , [place] tel:[phone] [place] Diabetes mellitus without mention of complication, Other and unspecified hyperlipidemi aNEUROPATHY IN DIABETES 1 Alejandro Reyes. [address] [place] [address], [facility] 300, [place], [place], [address], [place]. tel:[phone] Referring Provider: Eric Allen, [address] [place] [address], [place], [address] . tel:[phone] [facility], [address], [place], [place], [address] , [place] tel:[phone] [facility] 1 Patricio Haque. [address] [place] [address], [place] [address], [place], [place], [address], [place]. tel:[phone] [facility], [address], [place], [place], [address] , [place] tel:[phone] [place] Diabetes mellitus without mention of complication, HYPERLIPIDEMI A NEC/NOS 1 Alejandro Reyes. [address] [place] [address], [facility] 300, [place], [place], [address], [place]. [phone] Referring Provider: Eric Allen, [address] [place] [address], [place], [address] . tel:[phone] [facility] [address], [place], [place], [address] , [place] tel:[phone] [place] DM Controlled, No Complication 1 Alejandro Reyes. [address] [place] [address], [place] [address], [place], [place], [address], [place]. tel:[phone] Referring Provider: Eric Allen, [address], [place], [address] . tel:[phone] [facility], [address], [place], [place], [address] , [place] tel: [phone] [place] DMII WO CMP NT ST UNCNTRHYPERTE NSION NOS Aug- 3 1 Alejandro Reyes. [address] [place] [address], [address], [place], [place], [address], [place]. tel:[phone] [facility], [address], [place], [place], [address] , [place] tel: [phone] [place] DMII WO CMP UNCNTRLDHYPER LIPIDEMIA NEC/NOSNEUROP ATHY IN DIABETES 1 Alejandro Reyes. [address] [place] [address], [address], [place], [place], [address], [place]. tel:[phone] [facility], [address], [place], [place], [address] , [place] tel: [phone] [place] BENIGN HYPERTENSIONG OUT NOS 1 Bryan Zaldivar. [address] [place] [address], Suite [facility], [place], [place], [address], [place]. tel:[phone] [facility], [address], [place], [place], [address] , [place] tel: [phone] [place] ESOPHAGEAL REFLUX Sep-2 - 0 Gaever Elizabeth. [address] [place] [address], [place] [address], [place], [place], [address]. tel:[phone] [facility], [address], [place], [place], [address] , [place] tel: [phone] [place] SCRN MALIG NEOP-PROSTATE Sonu-0 4-201 0 Bryan Zaldivar. [address] [place] [address], [address], [place], [place], [address], [place]. tel:[phone] [facility], [address], [place], [place], [address] , [place] tel: [phone] [place] VAC STRPTCS PNEUMNI B 0-201 0 Alejandro Reyes. [address] [place] [address], [address], [place], [place], [address], [place]. tel:[phone] [facility], [address], [place], [place], [address] , [place] tel: [phone] [place] IDIO PERIPH NEURPTHY NOS 0-201 0 Bryan Zaldivar. [address] [place] [address], [place] [address], [place], [place], [address], [place]. tel:[phone] [facility], [address], [place], [place], [address] , [place] tel: [phone] [place] URINARY INCONTINENCE NOS 0-200 9 Alejandro Reyes. [address] [place] [address], [place] [address], [place], [place], [address], [place]. tel:[phone] [facility], [address], [place], [place], [address] , tel: [phone] [place] NEURALGIA/MAXIMUS RITIS NOS 4-200 9 Bryan Zaldivar. [address] [place] [address], Suite [facility], [place], [place], [address], [place]. tel:[phone] [facility], [address], [place], [place], [address] , [place] tel: [phone] [place] CERVICALGIA 6-200 8 Byran Zaldivar. [address] [place] [address], [place] [address], [place], [place], [address], [place]. tel:[phone] [facility], [address], [place], [place], [address] , [place] tel: [phone] [place] BPH LOC W/O UR OBS/LUTS 7-200 8 Larissa Arnett. [address] [place] [address], [place] [address], [place], [place], [address], [place]. tel:[phone] [facility], [address], [place], [place], [address] , [place] tel: [phone] [place] PREOP EXAM UNSPCFLONG-TE RM USE MEDS NEC 8-200 8 Bryan Zaldivar. [address], [address], [place], [place], [address], [place]. tel:[phone] [facility], [address], [place], [place], [address] , [place] tel: [phone] [place] RETINAL DETACHMENT NOS Feb- 8-200 8 Dias Hope. [address], [address], [place], [place], [address], [place]. tel:[phone] [facility], [address], [place], [place], [address] , [place] tel: [phone] [place] JOINT PAIN-SHLDER Apr-3 0-200 7 Bryan Zaldivar. [address] [place] [address], [address], [place], [place], [address], [place]. tel:[phone] [facility], [address], [place], [place], [address] , [place] tel: [phone] [place] SYNOV/TEND/BU RSA DIS NEC Oct-2 4-200 6 Alejandro Reyes. [address] [place] [address], [address], [place], [place], [address], [place]. tel:[phone] [facility], [address], [place], [place], [address] , [place] tel: [phone] [place] LOC PRIM OSTEOARTH-WRIGHT D Aug-2 8200 6 Bryan Zen. [address] [place] [address], [facility] 300, [place], [place], [address], [place]. tel:[phone] [facility], [address], [place], [place], [address] , [place] tel: [phone] [place] CATARACT NOS Apr-1 4-200 5 Bryan Zaldivar. [address] [place] [address], [address], [place], [place], [address], [place]. tel:[phone] [facility], [address], [place], [place], [address] , [place] tel: [phone] [place] RESPIRATORY ABNORM NEC Feb-0 8200 2 Conversion Doctor. [facility] [address] [facility], [place], [address], [place]. [facility], [address], [place], [place], [address] , [place] tel: [phone] [place] No Information 1 Alejandro Reyes. [address], [address], [place], [place], [address], [place]. tel:[phone] [facility], [address], [place], [place], [address] , [place] tel: [phone] [place] JARET IVETT CEREBR MENINGES 0 1 Bryan Zaldivar. [address], [address], [place], [place], [address], [place]. tel:[phone] Family History Family Member Type Diagnosis Age At Onset Problem (finding) No family history of Ca ncer, colon Problem (finding) No family history of Ca ncer, prostate Brother Problem (finding) coronary arterioscleros is Immunizations Vaccine Date Status Comments Tdap administered Note: [facility] ; Source: Other Registry Cycle Money (Bivalent Booster) CO VID Vac, 30mcg/0.3mL, 12+ years administered Note: [facility] ; Source: Other Registry Fluzone High-Dose, high dose , preservative free administered Source: New Immuniza tion Record Pfizer (Diluent Reconstitute d) COVID19 Vaccine, 0.3mL per dose, 2 doses, administered 21 days apart administered Note: Tomasa [phone] ; Source: Other Provider Fluzone High-Dose, high [...] ble (3 yrs or older) administered Note: [id number] ; S ource: New Immunization Record Flu (split) (3 yrs or older) administered Note: [facility] [id number] ; Source: New Immunization Record Zoster administered Note: [facility] [facility] [id number] ; Source: New Immunization Record Tdap administered Note: [facility] [id number] ; Source: New Immunization Record [id number] - Pneumococcal_PPV23 administered S ource: Source Unspecified Payers Payer name Insurance type Covered libertarian ID Authoriza tion(s) AETNA MDCR GOLD ADVANTAGE HMO MB [id number] A[employer] MDCR GOLD ADVANTAGE HMO MB [id number] AETNA MDCR GOLD ADVANTAGE O MB [id number] AETNA MDCR GOLD ADVANTAGE O MB [id number] AETNA MDCR GOLD ADVANTAGE HMO MB [id number] AETNA MDCR GOLD ADVANTAGE HMO MB [id number] AETNA MDCR GOLD ADVANTAGE HMO MB [id number] AETNA MDCR GOLD ADVANTAGE O MB [id number] AET[employer] MDCR GOLD ADVANTAGE O MB [id number] [facility] 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, [id number] [phone] Ordered: COLONOSCOPY, Flexible, Proximal To Splenic, Diagnostic, Wor W/O Collection Of Sp ordered Referral Referred To: Geovanni Maria [address], [place], [phone] Ordered: Referrals: Orthopedic Surgery. Geovanni Maria. Evaluation/diagnostic/treatment - Level 3 ordered Referral Referred To: Connor Linda DPM D.P.M [address] [facility] [place], [phone] Ordered: Referrals: Podiatry. Connor Linda DPM D.P.M. Evaluation/diagnostic/treatment - Level 3 Appointment date/timeframe: 09/19/2019 ordered Referral Ordered: EGD (esophagogastroduodenoscopy) ordered Referral Referred To: Lyudmila Tidwell MD [address] [facility] [address] [place], [phone] Ordered: Referrals: Gastroenterology. Lyudmila Tidwell MD. Evaluation/diagnostic/treatment - Level 3 Appointment date/timeframe: 04/05/2019 ordered Referral Referred To: Fili Hernandez [address] [place], [place], [phone] Ordered: Referrals: Orthopedic Surgery. Fili Hernandez. Evaluation/diagnostic/treatment - Level 3 Appointment date/timeframe: 03/18/2019 ordered Referral Referred To: Paul Wyatt MD [address] [facility]
[address], [phone] Ordered: Referrals: Neurology. Paul Wyatt MD. Evaluation/diagnostic/treatment - Level 3 Appointment date/timeframe: 03/14/2019 ordered Referral Referred To: Paul Okeefe MD [address] [place], [phone] Ordered: Referrals: Orthopedic Surgery. Paul Okeefe MD. Evaluation/diagnostic/treatment - Level 3 Appointment date/timeframe: 03/07/2019 ordered Referral Ordered: COLONOSCOPY AND BIOPSY ordered History Of Present Illness Encounter Date Complaint History Of Prese nt Illness CC. Pt presents in t he office for management of chronic conditions.DM w/neuropathy with usp insulin use: Pt compliant with Metformin 1000 [...] has not found a new PCP in [place] yet. Patient encounter Chief complain t: nasal [...] years, and then returns. Previously completed with [facility] orthopedics and [place]. Pt does not have a phone number to call for an appointment. .CC Pt presents in t he office for management of chronic conditions.DM w/neuropathy with usp insulin use: Pt compliant with Metformin 1000 [...] Trig 325, HDL 32Eyes: Annual checks at [place] per ptFoot:02/2021 Vibratory sensations absent BIL05/2020 0/10 monofilament ROZINA chronic condition Pt presents in the office for management of chronic conditions.DM w/neuropathy with usp insulin use: Pt compliant with Metformin 1000 [...] all in his feet. He reports seeing [facility] in [facility] recently for his [...] bleed. Chronic conditions DM w/neuropat hy with oil heaterman insulin use: Pt compliant with Metformin 1000 mg BID, Novolog Mix 70/30 and Jardiance-1000 mg BID and Novolog Mix 70/30 57 units before breakfast and dinner. Pt compliant with Nortriptyline and also followed by neurologist, Dr Wyatt. Pt reports pain of 3/10. Pt sees historical archeologist for feet and notes they removed pus.Sciatica: [...] He states that he does see a historical archeologist, but not regularly.DM w/neuropathy: Pt is med [...] supplement: Reports med compliance with iron supplement. [facility] follow up [facility] f neal velasquez (comments) f/u Hospitalization, [facility], 01/20- 01/23/19Was seen here on 12/23 for generalized abdominal pain of 3 days - was sent to [facility] ER -after waiting several hours in ER, he decided to leave. Abdominal pain continued - he decided to go to [facility] ER when pain became intense and began [...] Pt presents today s/p ER visit at [facility] 10/16/18. States he fell off a ladder [...] on calories. Most people should eat between 6616-7509 calories to lose weight. Decrease your carbohydrate [...] kidney disease See plan above. Related to half-way (current) use of insulin Dietary management e ducation, guidance, and counseling Related to Body mass index (BMI) 31.0-31.9, adult Medication management Reports previous javi roid injection at [facility] orthopedics and once at [place]. Last seen 2019 at [facility] with CANDELARIO Pearl. Discussed Pt should call [facility] orthopedics to schedule appointment, and notify office. Will monitor. Pt trying to find new PCP in [place]. If unable, Pt should f/u with Dr. [...] on calories. Most people should eat between 1857-9074 calories to lose weight. Decrease your carbohydrate intake to less than 150g per day if possible and increase protein to help with hunger. Increase activity to 30min 4-5 days a week. Focus on drinking plenty of water daily and getting adequate sleep. If you need further help with weight loss please let me know. Will continue to monitor.Patient is moving to [place] in the future and may find a new PCP. Charting performed by Itzel Newberry acting as scribe for Itzel Altamirano. DO Alejadnro; I reviewed the chart and agree with [...] Idiopathic neuropathy See plan above. Related to half-way (current) use of insulin Last A1c was [...] vaccines except -NEEDS SHINGRIXSabiha Zamora, PharmD Candidate [facility] [employer], Class of 2021/Margarita Mcnulty, [...] on calories. Most people should eat between 8038-1925 calories to lose weight. Decrease your carbohydrate [...] ROZINA.will check NCV - order placed at [facility] Related to Type 2 diabetes mellitus with [...] to Hypertriglyceridemia see plan above. Related to salvage determiner (current) use of insulin Controlled 138/76. C [...] years (UTD)Note generated by: Pharm. ArianaD. 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 Related to half-way (current) use of insulin - with Hgba1c [...] by Filiberto Rodriguez acting as scribe for Itezl Altamirano. CORETTA Allen reviewed the chart and agree with and approve of the documentation. Related to Obesity (BMI 30-39.9) Stable Continue curr ent treatment -- Hydrocodone-APAP 10mg-325 mg 1 tab every 4-6 hours as needed. Encourage to complete stretches and xaukh-qy-zakgyj exercises. Will continue to monitor. Notify for [...] twice daily. Encourage to complete stretches and tmame-bl-chxkdf exercises. Will continue to monitor. Notify for [...] twice daily. Encourage to complete stretches and oinkk-tk-jixobx exercises. Will continue to monitor. Notify for [...]
--- OUTSIDE RECORDS SUMMARY | 2025-03-11 14:15 | XMS_ITS | Encounter Summary ---
Author Organization [facility] Address [address] [place] [address] Care Team Providers Care Charge Histotechnologist Name Role Phone Redd De Anda MD Primary Care Provider [phone] Reason for Referral * PET Scan (Urgent) - Open Specialty Diagnoses / Procedures Referred By Contac t Referred To Contact Diagnoses Malignant neoplasm of colon, unspecified part of colon (CMS/HCC) Procedures PET TUMOR OR INFECTION IMG W CT SKB MD Rey Reyna MD [address] [place] [id number] Phone: tel: fax: Referral ID Status Reason Start Date Expiration Date Visits Re quested Visits Authorized [id number] Open 03/11/2025 04/11/2026 1 1 * Eval and Treat (Routine) - Open Specialty Diagnoses / Procedures Referred By Contac t Referred To Contact Oncology Diagnoses Malignant neoplasm of colon, unspecified part of colon (CMS/HCC) Procedures MO OFFICE/OUTPATIENT ESTABLISHED MOD MDM 30 MIN MO OFFICE/OUTPATIENT NEW MODERATE MDM 45 MINUTES Rey Reyna MD [address] [place] [phone] Phone: tel: fax: Referral ID Status Reason Start Date Expiration Date Visits Re quested Visits Authorized [id number] Open 03/11/2025 03/12/2026 1 1 Reason for Visit * Reason Comments Cancer Follow Up Encounter Details Date Type Department Care Team (Late st Contact Info) Description 03/11/2025 2:15 PM CDT Office Visit 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 Gender Identity Not on file Sexual Orientation Not on file Occupation Industry Job Start Date Job End Date Not on file Not on file Not on file Not on file documented as of this encounter Last Filed Vital Signs Vital Sign Reading Time Taken Comments Blood Pressure 155/83 03/11/2025 2:04 PM CDT Pulse 74 03/11/2025 2:01 PM CDT Temperature 36.7 C (98.1 F) 03/11/2025 2:01 PM CDT Respiratory Rate 15 03/11/2025 2:01 PM CDT Oxygen Saturation 98% 03/11/2025 2:01 PM CDT Inhaled Oxygen Concentration - - Weight 90.7 kg (200 lb) 03/11/2025 2:01 PM CDT Height - - Body Mass Index 29.53 03/27/2023 1:38 PM CDT documented in this encounter Progress Notes * Rey Reyna MD - 03/11/2025 2:56 PM CDT HEMATOLOGY / ONCOLOGY PROGRESS NOTE Patient Identification: Name: Dane Parker Age: 75 y.o. Sex: male : 1950 DIAGNOSIS Metastatic adenocarcinoma status post biopsy of the large intestine and appendiceal orifice with metastatic involvement of peritoneum and omentum diagnosed January 27, 2025. Thrombocytopenia and anemia CURRENT TREATMENT Expectant TREATMENT HISTORY SUBJECTIVE Patient came to the office for follow-up visit after recently being discharged from the hospital onMarch 08. Patient was admitted with small bowel obstruction with peritoneal carcinomatosis. Surgery was consulted and decided to proceed with chemotherapy rather than surgery. He is able to eat clear liquid diet and having bowel movements. No abdominal pain. No bleeding. No other new complaints. Review of system Constitutional: Patient did not mention fevers, sweats, complain of tiredness and fatigue, 17 poundweight loss HEENT: Patient did not mention sinus congestion, hearing or vision problems Respiratory: Patient did not mention cough, dyspnea, wheeze Cardiovascular: Patient did not mention chest pain, exertional chest pressure/discomfort, nausea, syncope, shortness of breath GI: Patient did not mention constipation, diarrhea, dsyphagia, reflux symptoms, vomiting, melena : Patient did not mention dysuria, frequency, incontinence, urgency Integumentary system: no lymphadenopathy, sweats, flushing Musculoskeletal: Patient not mention: myalgia, arthralgia, denies any chest discomfort Neurological: Patient did not mention blurry or disturbed vision, numbness/weakness, dizziness Skin: No lumps, bumps or rashes. 12 point review of system was reviewed Objective: Vital signs in last 24 hours: As per nursing note Exam: General appearance: alert, cooperative, no distress, appears stated age Head: normocephalic, without obvious abnormality, atraumatic Eyes: conjunctivae/corneas clear, EOM's intact Ears: normal external ear canals AU Nose: Nares normal. Septum midline. Mucosa normal. No drainage or sinus tenderness Throat: Lips, mucosa, and tongue normal. Teeth and gums normal Neck: supple, symmetrical, trachea midline. Lungs: clear to auscultation bilaterally Heart: regular rate and rhythm, S1, S2 normal, no murmur, click, rub or gallop Abdomen: soft, non-tender. Bowel sounds normal. No masses, No organomegaly Extremities: extremities normal, atraumatic, no cyanosis or edema Skin: Skin color, texture, turgor normal. No rashes or lesions Lymph nodes: No lymphadenopathy Neuro: No obvious focal deficit Exam as above PATH LABS Labs from March 27 showed WBC 6.8 hemoglobin 12 platelet 86,000 creatinine 0.9 vitamin B12 842 iron 32 saturation 9% ferritin 10 Labs from July 09 showed hemoglobin 16.5 platelet 84,000 iron 95 saturation 31 ferritin 27 Labs from December 09 showed WBC 7.1 hemoglobin 15.7 platelets 78,000 creatinine 1.2 Labs from April 11 showed WBC 6.4 hemoglobin 16 platelets 76,000 creatinine 1.1 Labs from October 08 showed WBC 6.7 hemoglobin 15 platelet 95,000 creatinine 1.0 total bilirubin 0.4 Assessment: Plan: There are no active problems to display for this patient. Metastatic adenocarcinoma status post biopsy of the large intestine and appendiceal orifice with metastatic involvement of peritoneum and omentum diagnosed January 27, 2025. Patient CT scan showed small bowel obstruction with carcinomatosis. Patient had diagnostic laparoscopy with laparoscopic incisional biopsy of the peritoneum and omentum done on January 22, 2025 and pathology came back positive for metastatic adenocarcinoma likely GI origin. CEA came back normal. I have discussed this case with Dr. Tesfaye in surgery and Dr. Peoples in the tumor board. Plan is to proceed with palliative chemotherapy. I will order [employer] ration sequencing for XT andXF as well as tumor origin test. I will order the PET scan. Mediport has been placed. Chemotherapy will be challenging due to the low platelet count. I might start chemotherapy with 20% dose reduction on oxaliplatin with FOLFOX Avastin regimen. Thrombocytopenia secondary to splenomegaly of unclear etiology. I plan is to start chemotherapy with FOLFOX Avastin or FOLFIRI Avastin regimen based on his tolerance. Patient to start chemotherapy in 1 week and follow-up in 3 weeks with labs on return to clinic. 03/11/2025 Rey Reyna MD documented in this encounter Miscellaneous Notes * Addendum Note - Peng Boggs - 03/11/2025 3:23 PM CDTAddended by: PENG BOGGS on: 03/11/2025 03:23 PM Modules accepted: Orders documented in this encounter Plan of Treatment Pending Results Name Type Priority Associated Diagnoses Date /Time TEMPUS XT DNA AND RNA Lab Routine Malignant neoplasm of colon, unspecified part of colon (CMS/HCC) 03/11/2025 3:23 PM CDT TEMPUS XT NORMAL BLOOD Lab Routine Malignant neoplasm of colon, unspecified part of colon (CMS/HCC) 03/11/2025 3:23 PM CDT Scheduled Orders Name Type Priority Associated Diagnoses Orde r Schedule MISCELLANEOUS LAB TEST Lab Routine Malignant neoplasm of colon, unspecified part of colon (CMS/HCC) Expected: 03/11/2025, Expires: 03/11/2026 PET TUMOR OR INFECTION IMG W CT SKB MDTH Imaging Stat Malignant neoplasm of colon, unspecified part of colon (CMS/HCC) Expected: 03/12/2025, Expires: 03/11/2026 TEMPUS XT DNA AND RNA Lab Routine Malignant neoplasm of colon, unspecified part of colon (CMS/HCC) Expected: 03/11/2025, Expires: 03/11/2026 TEMPUS XF Lab Routine Malignant neoplasm of colon, unspecified part of colon (CMS/HCC) Expected: 03/11/2025, Expires: 03/11/2026 TEMPUS XT DNA AND RNA SOLID TUMOR Lab Routine Malignant neoplasm of colon, unspecified part of colon (CMS/HCC) Ordered: 03/11/2025 Scheduled Referrals Name Type Priority Associated Diagnoses Orde r Schedule AMB REFERRAL TO [employer] Outpatient Referral Routine Malignant neoplasm of colon, unspecified part of colon (CMS/HCC) Ordered: 03/11/2025 documented as of this encounter Visit Diagnoses Diagnosis Malignant neoplasm of colon, unspecified part of colon (CMS/HCC)- Primary documented in this encounter Care Teams Charge Histotechnologist Relationship Specialty Start Date End Date Redd De Anda MD [address] [place] [address] PCP - General Internal Medicine 03/27/23 documented as of this encounter
--- OUTSIDE RECORDS SUMMARY | 2025-03-11 17:01 | XMS_ITS | Clinical Summary ---
Author Organization 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 Continue [...] 08/29/2017 Assessment & Plan (07/23/2024 10:56 AM DIVISION SALES MANAGER): Essential tremor symptoms remained stable. Continue zonisamide 200 mg at bedtime. Transient ischemic attack (TIA) 08/29/2017 Abdominal pain, LLQ (left lower quadrant) 2013 Splenomegaly 04/04/2014 DM (diabetes mellitus) type II controlled, neurological manifestation 10/22/2013 Need for prophylactic vaccin ation and inoculation against influenza 03/06/2013 Seizure 02/12/2013 Overview (08/30/2016): Seizure Assessment & Plan (07/23/2024 10:52 AM DIVISION SALES MANAGER): The patient remains seizure-free on his current medications. Continue lacosamide 100 mg Continue Keppra a 1000 mg in the morning and 1500 mg in the p.m.. He is also on Lyrica and zonisamide which can also help treat seizures. Assessment & Plan (04/22/2024 8:17 AM DIVISION SALES MANAGER): The patient has on multiple seizure medications [...] on file Legal Sex Male 3:24 PM DIVISION SALES MANAGER Gender Identity Not on file Sexual Orientation Not on file Obstetrics History Last Filed Vital Signs Vital Sign Reading Time Taken Comments Blood Pressure 155/79 07/23/2024 10:19 AM DIVISION SALES MANAGER Pulse 85 10/29/2023 2:38 PM CDT Temperature 36.4 C (97.5 F) 10/09/2023 9:45 AM CDT Respiratory Rate 20 10/29/2023 2:38 PM CDT Oxygen Saturation 97% 10/29/2023 2:38 PM CDT Inhaled Oxygen Concentration - - Weight 101.6 kg (224 lb) 07/23/2024 10:19 AM DIVISION SALES MANAGER Height 175.3 cm (5' 9) 07/23/2024 10:19 AM DIVISION SALES MANAGER Body Mass Index 33.08 07/23/2024 10:19 AM DIVISION SALES MANAGER Plan of Treatment Health Maintenance Due Date [...] Insurance [employer] MEDIC[employer] PPO Care Teams Media Services Specialist Relationship Specialty Start Date End Date Redd De Anda MD PCP - General Internal Medicine 06/16/22
--- OUTSIDE RECORDS SUMMARY | 2025-03-11 17:01 | XMS_ITS | Encounter Summary ---
Author Organization [facility] Health Address [address] [place] [address] Care Team Providers Care Splicer Machine Operator Name Role Phone Eliceo Templeton RN Unavailable [phone] Casie Pruett RN Unavailable Unava ilable Redd De Anda MD Primary Care Provider [phone] Reason for Visit * Reason Comments Refill Request Encounter Details Date Type Department Care Team (Late st Contact Info) Description 09/21/2022 Refill [facility] - Orthopedics [address] [facility], [place] [address] Abhijeet Gallego MD [address] [facility] [place] [address] Refill Request Social History Tobacco [...] PM CDT Legal Sex Male 5:30 AM PERCUSSION INSTRUMENT TUNER Gender Identity Not on file Sexual Orientation Straight 02/15/2022 2: 37 PM CDT 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 Not on file [...] Care Team (Late st Contact Info) Description 05/27/2025 11:45 AM PERCUSSION INSTRUMENT TUNER Office Visit [facility] - General Surgery [address] [place] [address] Shabnam Whittaker MD [address] [phone] documented as of this encounter Visit Diagnoses Not on filedocumented in this encounter Care Teams Splicer Machine Operator Relationship Specialty Start Date End Date Redd De Anda MD [address] [place], [place] [phone] PCP - General Internal Medicine 05/11/22 Eliceo Templeton RN Offal Separator 10/22/13 [place]ie Celeste RN Registered Nurse 09/28/16 documented as of this encounter
--- OUTSIDE RECORDS SUMMARY | 2025-03-11 17:01 | XMS_ITS | Patient Health Record ---
Author Organization [facility] Address [address] [facility]. [address] [place] [address] Care Team Providers Care Computer Systems Software Engineer Name Role Phone Eric Allen DO Primary Care Provider Unavailab le Reason For Referral No Information Plan Of Treatment No Information Insurance Providers Payer Name Payer Address Payer Phone Subscriber Number Group Number Insured Name Patient Relationship to Insured Coverage Start Date Coverage End Date Cmr- [employer] [id number] [phone] [id number] Dane Parker Self - patient is the insured
--- OUTSIDE RECORDS SUMMARY | 2025-03-11 17:03 | XMS_ITS | Clinical Summary ---
Author Organization [facility] Address [address] [place] [address] Phone Care Team Providers Care Die Out Worker Name Role Phone Redd De Anda MD Primary Care Provider [phone] Allergies Active Allergy Reactions Criticality Noted Date Comments Codeine Other (See Comments) 01/16/2014 Extreme insomnia Empagliflozin Other (See Comments) 05/14/2022 Euglycemic dka Other reaction(s): CHARGING PLUG PLACER Dysfunction Euglycemic dka Medications insulin aspart protamine-aspar [...] Encounters Date Type Department Care Team Description 03/11/2025 2:15 PM CDT Office Visit [facility] Oncology and Hematology - [place] [address] [place] [phone] Rey Reyna MD Malignant neoplasm of colon, unspecified part of colon (CMS/HCC) (Primary Dx) 02/10/2025 External Device Data STL ABSTRACTION Provider, [...] on file Legal Sex Male 2:53 AM OPTICS MANUFACTURING TECHNICIAN Gender Identity Not on file Sexual Orientation [...] (200 lb) 03/11/2025 2:01 PM CDT Height 175.3 cm (5' 9) 03/27/2023 1:38 PM CDT Body Mass Index 29.53 03/27/2023 1:38 PM CDT Plan of Treatment Health Maintenance [...] Q 6 MONTHS 04/30/2023 10/29/2022, Medicare Advantage (ID) Preventative Visit/Annual Wellness Visit 05/28/2024 INFLUENZA VACCINE (#1) 2024 , 03/12/2023, 03/02/2022, Additional history exists COVID-19 Vaccine (2023-2 5 season) 2025 04/01/2024, 03/12/2023, 03/16/2022, Additional history exists RSV VACCINE (60+ or ) (1 - 1-dose 75+ series) 2025 DIABETES ANNUAL RETINAL EXAM 02/28/2025 02/29/2024 DTAP/TDAP/TD VACCINES (4 - T d or Tdap) 03/17/2032 03/17/2022, 08/01/2018, 01/03/2012 PNEUMOCOCCAL VACCINE 50+ YEARS Completed 1 06/16/2022, 07/29/2019, 02/25/2017, Additional history exists Medical Devices Implanted Type Area Vegetable Loader Device Identifier Shelf Expiration Date Model / Serial / Lot Knee Knee Insurance HUMANA PPO MCR HUMANA PPO MCR Advance Directives For more information, please contact: [phone] * Full Code (Latest Code Status on File) Date Activated Date Inactivated Comments 10/16/2018 12:47 AM 10/17/2018 4:54 PM * Full Code Date Activated Date Inactivated Comments 01/27/2014 8:03 AM 01/27/2014 12:09 PM * Full Code Date Activated Date Inactivated Comments 01/27/2014 7:45 AM 01/27/2014 8:03 AM Care Teams Die Out Worker Relationship Specialty Start Date End Date Redd De Anda MD [address] [place] [address] PCP - General Internal Medicine 03/27/23
--- OUTSIDE RECORDS SUMMARY | 2025-03-11 17:03 | XMS_ITS | Clinical Summary ---
Author Organization [facility] Address [address] [facility] [place] [address] Care Team Providers Care Collections Representative Name Role Phone Eliceo Templeton RN Unavailable [phone] Casie Pruett RN Unavailable Unava Redd Barbour MD Primary Care Provider [phone] Source Comments [facility],non-owned Affiliates and Associated Physician Practices is amultiple site organization consisting of ambulatory clinics and hospital sitesin [place], [place], [place] and [place]. This disclosure is being madepursuant to the Care Everywhere program and may not contain all information available regarding this patient. 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 - Outside Imaging Discharge Disposition: Home or Self Care 02/17/2025 9:51 AM CDT - 02/17/2025 11:59 PM CDT Hospital Encounter [facility] - Outside Imaging Discharge Disposition: Home or Self Care 02/11/2025 Telephone [facility] Physician [facility] - General Surgery [address] [facility], [place] [address] Alanis Russ, RN Appointment from Last 3 [...] and heating? Not hard at all 10/28/2022 [facility] of Occupat ional Health - Occupational Stress [...] place to sleep or slept in a detention (including now)? 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 Not on file [...] st Contact Info) Description 05/27/2025 11:45 AM INSTALLATION SUPERVISOR Office Visit [facility] - General Surgery [address] [place] [address] Shabnam Whittaker MD [address] [phone] Health Maintenance Due Date Last Done Comments [...] this topic Medical Devices Implanted Type Area Lunchroom Aide Device Identifier Shelf Expiration Date Model / Serial / Lot Cmnt Bone Co Hv 40gm Implanted:Qty: 2 on 09/27/2016 by Enmanuel Cerrato MD at [facility] Right: Knee [employer] 05/27/2018 [id number] / / [id number] Cruciate Retaining Legion Nonporous Femoral Component Implanted:Qty: 1 on 09/27/2016 by Enmanuel Cerrato MD at [facility] Right: Knee [employer] 05/09/2025 [id number] / / [id number] Description:Note: explanted 1 x existing screw. Disposition: trash. Onelia 11 Right Non Porous Tibial Baseplate Implanted:Qty: 1 on 09/27/2016 by Enmanuel Cerrato MD at [facility] Right: Knee [employer] 03/11/2026 [id number] / / [id number] Resurfacing Round Patellar Component Implanted:Qty: 1 on 09/27/2016 by Enmanuel Cerrato MD at [facility] Right: Knee [employer] 01/21/2026 [id number] / / [id number] High Flexion Articular Insert Implanted:Qty: 1 on 09/27/2016 by Enmanuel Cerrato MD at [facility] Right: Knee [employer] 07/02/2025 [id number] / / [id number] George Shai Tib Uncem Fem Implanted:Qty: 1 on 09/27/2016 by Enmanuel Cerrato MD at [facility] [employer] BILL ONLY SHAI TIB UNCEM FEM SNORTHO / / Procedures Procedure Name Priority Date/Time Associated Diagnosis Comments COMPREHENSIVE METABOLIC PANEL STAT 01/08/2023 12:02 PM CDT HEPATITIS C AB SCREEN RFLX NAAT QUANT AM Draw 11/04/2022 4:26 AM CDT HEMOGLOBIN A1C Routine 10/29/2022 5:42 AM CDT MICROALB/CREAT RATIO URINE RANDOM PANEL Routine 05/17/2022 9:16 PM INSTALLATION SUPERVISOR from Last 3 Months or Most Recently Relevant to Health Maintenance Results * (ABNORMAL) COMPREHENSIVE METABOLIC PANEL (01/08/2023 12:02 PM [facility] BUN 15 7 - 26 mg/dL 01/08/2023 12:38 PM [facility] Creatinine 0.72 0.71 - 1.16 mg/dL 01/08/2023 12:38 PM [facility] Sodium 140 136 - 145 mmol/L 01/08/2023 12:38 PM [facility] Potassium 4.1 3.5 - 4.5 mmol/L 01/08/2023 12:38 PM [facility] Chloride 110(H) 98 - 107 mmol/L 01/08/2023 12:38 PM [facility] CO2 21(L) 22 - 29 mmol/L 01/08/2023 12:38 PM [facility] Glucose 171(H) 70 - 115 mg/dL 01/08/2023 12:38 PM [facility] Calcium 9.3 8.4 - 10.2 mg/dL 01/08/2023 12:38 PM [facility] Protein Total 7.3 6.0 - 8.3 g/dL 01/08/2023 12:38 PM [facility] Albumin 4.0 3.4 - 5.0 g/dL 01/08/2023 12:38 PM [facility] Bilirubin Total 0.3 0.2 - 1.2 mg/dL 01/08/2023 12:38 PM [facility] Alkaline Phosphatase 85 40 - 150 U/L 01/08/2023 12:38 PM [facility] ALT 15 5 - 55 U/L 01/08/2023 12:38 PM [facility] AST 21 5 - 34 U/L 01/08/2023 12:38 PM [facility] Anion Gap 13 8 - 18 01/08/2023 12:38 PM [facility] BUN/Creatinine Ratio 21 7 - 23 01/08/2023 12:38 PM [facility] Osmolality Calculated 295 270 - 300 mOsm/kg 01/08/2023 12:38 PM CDT [facility] Albumin/Globulin Ratio 1.2 1.1 - 2.3 01/08/2023 12:38 PM T [facility] eGFR by CKD-EPI >90 >=90 mL/min/1.7 3 m2 01/08/2023 12:38 PM T [facility] Blood BLOOD SPECIMEN / Unknown Venipuncture / Unknown 01/08/2023 12:02 PM CDT 01/08/2023 12:13 PM CDT Joao GOMEZ[facility] LAB - CHEMISTRY OR DERABLES Final Result Performing Organization Address City/[facility]/ZIP Co de Phone Number [address] [address], [facility] [phone] * HEPATITIS C AB SCREEN RFLX NAAT QUANT (11/04/2022 4:26 AM CDT) Hepatitis C Antibody Non-react kinjal Non-reac tive 11/04/2022 6:27 AM T [facility] Comment:Hepatitis C Antibody screen indicates no [...] 11/04/2022 5:44 AM CDT us Daryl Nicolas DENTAL APPLIANCE MECHANIC-HOME PERFORMANCE LABORER LAB - CHEMISTRY ORDERABL ES Final Result Performing Organization Address [facility]/ZIP Co de Phone Number [address] [address], [facility] [phone] * (ABNORMAL) HEMOGLOBIN A1C (10/29/2022 5:42 AM CDT) Hemoglobin A1c 6.9(H) <=5.6 % 10/30/2022 1:24 PM CDT [facility] Estimated Average Glucose 151 mg/dL 10/30/2022 1:24 PM CDT [facility] Comment: HbA1c Interpretation: Normal : < 5.7% Pre-diabetes: 5.7-6.4% Diabetes: Equal to or greater than 6.5% Test results diagnostic of diabetes should be repeated for confirmation. Treatment target values recommended by ADA and other clinical organizations should be used to evaluate metabolic control in patients. Reference: [place] Diabetes Association, Standards of Care in Diabetes [...] CHEMISTRY ORDERABLES Final Result Performing Organization Address City/[facility]/ZIP Co de Phone Number [facility] [address] [place] [address] [phone] * (ABNORMAL) MICROALB/CREAT RATIO URINE RANDOM PANEL (05/17/2022 9:16 PM INSTALLATION SUPERVISOR) Creatinine Urine 83.67 mg/dL 05/17/20 9:55 PM INSTALLATION SUPERVISOR [facility] Microalbumin Urine 13.8 mg/dL 05/17/2022 9:55 PM INSTALLATION SUPERVISOR [facility] Microalbumin/Crea tinine Ratio 164(H) <30 mg/g 05/17/2022 9:55 PM INSTALLATION SUPERVISOR [facility] Urine URINE SPECIMEN OBTAINED BY CLEAN CATCH PROCEDURE / Unknown Collection / Unknown 05/17/2022 9:16 PM INSTALLATION SUPERVISOR 05/17/2022 9:35 PM INSTALLATION SUPERVISOR us Trinidad Mckenzie MD LAB - URINE CHEMISTRY ORDERABLES Final Result Performing Organization Address City/[facility]/ZIP Co de Phone Number [facility] [address] [place] [address] from Last 3 Months or Most Recently Relevant to Health Maintenance Insurance HUMANA HUMANA MEDICARE ADV HMO & PPO SELF PAY NO INSURANCE Member Subscriber Plan / Payer (Ef fective for All Dates) Name:Dane Parker Member ID:Not on file Relation to Subscriber:Not on file Name:DANE PARKER Subscriber ID:Not on file (Home) Address: [address] [place] [id number] Payer ID:Not on file Group ID:Not on file Type:Self Pay Address: [place], [place] Advance Directives * Full Code (Latest [...] 4:13 PM 09/03/2014 6:45 PM Care Teams Collections Representative Relationship Specialty Start Date End Date Redd De Anda MD [address] [place] [id number] PCP - General Internal Medicine 05/11/22 Eliceo Templeton RN Rake Operator 10/22/13 GideonCasie Celeste RN Registered Nurse 09/28/16
== END 2025-03-11 14:46 | disposition home or self-care (01) ==
LOC: ANHLAB 14:47
PROVIDERS: PCP Internal Medicine; Visit Provider Internal Medicine Hematology & Oncology
DX: C18.9 Malignant neoplasm of colon, unspecified (principal)
CPT/HCPCS: 36415

== ENCOUNTER 2025-03-24 13:21 | Outpatient (CLI) | payer MEDICARE, SELFPAY ==
--- NOTE | ~2025-03-24 | PE_ITS ---
EXAMINATION: PET skull to mid thigh DATE: 03/24/2025 15:07 INDICATION: Malignant neoplasm of colon. TECHNIQUE: Blood glucose level was 140 mg/dL. 11.385 mCi of 18- fluorodeoxyglucose (18-FDG) was administered i.v. Low dose computed tomography (CT) images were acquired from the base of the brain to the proximal thighs for attenuation correction and anatomic localization. Automated exposure control was employed. Dose-length product (DLP) was 1165 mGy-cm. Positron emission tomography (PET) images were acquired in the same distribution. COMPARISON: PET/CT 09/20/23, chest CT 07/16/23 FINDINGS: Head/neck: There are likely changes of right ocular lens replacement surgery. There is mucosal thickening in the paranasal sinuses. There are no pathologically enlarged lymph nodes. There is a right internal jugular port with tip in proximal right atrium. Chest: There is a 3.9 x 2.5 cm part-solid mass in posterior segment right upper lobe with maximum SUV of 3.0, stable from 07/16/23. No pleural effusion. The heart size is normal. There are coronary artery calcifications. No pericardial effusion. Abdomen/pelvis/proximal thighs: The liver and spleen are normal. There are changes of cholecystectomy. The spleen, pancreas, adrenal glands, and left kidney are normal. There is a 13 mm stone in right kidney. The prostate is moderately enlarged. There are no dilated loops of bowel. There are changes of appendectomy. There is a small volume of perihepatic ascites. There is fat stranding and nodularity of the peritoneum, consistent with carcinomatosis. There is a 14 mm mass involving the left rectus abdominis muscle with maximum SUV of 3.4, which may be postsurgical inflammation. There are no pathologically enlarged lymph nodes. There is no osseous malignancy. IMPRESSION: 1. Nodularity and fat stranding in the peritoneum, consistent with peritoneal carcinomatosis. 2. Part-solid mass in right lung upper lobe, stable from 07/16/23, now with mildly increased activity. This finding may be granulomatous disease or low- grade adenocarcinoma. Reviewed, dictated and finalized at location E. IMPRESSION: 1. Nodularity and fat stranding in the peritoneum, consistent with peritoneal c arcinomatosis. 2. Part-solid mass in right lung upper lobe, stable from 07/16/23, now with mild ly increased activity. This finding may be granulomatous disease or low-grade a denocarcinoma.
--- OUTSIDE RECORDS SUMMARY | 2025-03-24 15:21 | XMS_ITS | Clinical Summary ---
Author Organization [facility] [address] B Address [address] [facility] [place] [address] Care Team Providers Care Machine Operator Cane Cutter Name Role Phone Redd De Anda MD Primary Care Provider Allergies Active Allergy Reactions Criticality Noted Date Comments Codeine Other (See comments) Reaction: HYPERACTIVITY, , Empagliflozin Other (See comments) Low 05/14/2022 Other reaction(s): OCCUPATIONAL THERAPY TECHNICIAN Dysfunction Euglycemic dka Euglycemic dka Euglycemic dka Other reaction(s): OCCUPATIONAL THERAPY TECHNICIAN Dysfunction Euglycemic dka Medications insulin aspart (NovoLOG) [...] 12/27/2022 Assessment & Plan (07/23/2024 10:57 AM RESOURCE MANAGEMENT PLANNER): The patient's neuropathy symptoms remained stable. Continue [...] 08/29/2017 Assessment & Plan (07/23/2024 10:56 AM RESOURCE MANAGEMENT PLANNER): Essential tremor symptoms remained stable. Continue zonisamide 200 mg at bedtime. Transient ischemic attack (TIA) 08/29/2017 Abdominal pain, LLQ (left lower quadrant) 2013 Splenomegaly 04/04/2014 DM (diabetes mellitus) type II controlled, neurological manifestation 10/22/2013 Need for prophylactic vaccin ation and inoculation against influenza 03/06/2013 Seizure 02/12/2013 Overview (08/30/2016): Seizure Assessment & Plan (07/23/2024 10:52 AM RESOURCE MANAGEMENT PLANNER): The patient remains seizure-free on his current medications. Continue lacosamide 100 mg Continue Keppra a 1000 mg in the morning and 1500 mg in the p.m.. He is also on Lyrica and zonisamide which can also help treat seizures. Assessment & Plan (04/22/2024 8:17 AM RESOURCE MANAGEMENT PLANNER): The patient has on multiple seizure medications [...] on file Legal Sex Male 3:24 PM RESOURCE MANAGEMENT PLANNER Gender Identity Not on file Sexual Orientation Not on file Obstetrics History Last Filed Vital Signs Vital Sign Reading Time Taken Comments Blood Pressure 155/79 07/23/2024 10:19 AM RESOURCE MANAGEMENT PLANNER Pulse 85 10/29/2023 2:38 PM CDT Temperature 36.4 C (97.5 F) 10/09/2023 9:45 AM CDT Respiratory Rate 20 10/29/2023 2:38 PM CDT Oxygen Saturation 97% 10/29/2023 2:38 PM CDT Inhaled Oxygen Concentration - - Weight 101.6 kg (224 lb) 07/23/2024 10:19 AM RESOURCE MANAGEMENT PLANNER Height 175.3 cm (5' 9) 07/23/2024 10:19 AM RESOURCE MANAGEMENT PLANNER Body Mass Index 33.08 07/23/2024 10:19 AM RESOURCE MANAGEMENT PLANNER Plan of Treatment Health Maintenance Due Date [...] Insurance HUMANA CHOICE MEDICARE PPO Care Teams Machine Operator Cane Cutter Relationship Specialty Start Date End Date Redd De Anda MD PCP - General Internal Medicine 06/16/22
--- OUTSIDE RECORDS SUMMARY | 2025-03-24 15:21 | XMS_ITS | Encounter Summary ---
Author Organization [facility] Health Address [address] [place] [address] Care Team Providers Care Fingernail Technician Name Role Phone Eliceo Templeton RN Unavailable [phone] Casie Pruett RN Unavailable Unava ilable Redd De Anda MD Primary Care Provider [phone] Reason for Visit * Reason Comments Refill Request Encounter Details Date Type Department Care Team (Late st Contact Info) Description 09/21/2022 Refill [facility] [address] [facility] [place] [address] Abhijeet Gallego MD [address] [facility] [address] Refill Request Social History Tobacco [...] PM CDT Legal Sex Male 5:30 AM PROGRAM SERVICES PLANNER Gender Identity Not on file Sexual Orientation Straight 02/15/2022 2: 37 PM CDT 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 Not on file [...] st Contact Info) Description 05/27/2025 11:45 AM PROGRAM SERVICES PLANNER Office Visit [facility] - General Surgery [address] [place] [address] Shabnam Whittaker MD [address] [phone] documented as of this encounter Visit Diagnoses Not on filedocumented in this encounter Care Teams Fingernail Technician Relationship Specialty Start Date End Date Redd De Anda MD [address] [place], [place] [phone] PCP - General Internal Medicine 05/11/22 Eliceo Templeton RN Coal Loader 10/22/13 LancasterCasie Celeste RN Registered Nurse 09/28/16 documented as of this encounter
--- OUTSIDE RECORDS SUMMARY | 2025-03-24 15:21 | XMS_ITS | Clinical Summary ---
Author Organization [facility] Address [address] [place] [address] Phone Care Team Providers Care Blow Machine Tender Starch Spraying Name Role Phone Redd De Anda MD Primary Care Provider [phone] Allergies Active Allergy Reactions Criticality Noted Date Comments Codeine Other (See Comments) 01/16/2014 Extreme insomnia Empagliflozin Other (See Comments) 05/14/2022 Euglycemic dka Other reaction(s): HOSPITAL MEDICINE DIRECTOR Dysfunction Euglycemic dka Medications insulin aspart protamine-aspar [...] Description 03/11/2025 2:15 PM CDT Office Visit [facility] - [place] [address] [place] [phone] Rey Reyna MD Malignant neoplasm of colon, [...] on file Legal Sex Male 2:53 AM SUPERVISOR WET END Gender Identity Not on file Sexual Orientation [...] Care Team (Late st Contact Info) Description 03/31/2025 8:45 AM SUPERVISOR WET END Office Visit [facility]ology - [place] [address] [facility] [address] [place] [address] Rey Reyna MD [address] [facility] [address] [place] [address] Health Maintenance Due Date Last Done Comments DIABETES ANNUAL FOOT EXAM 02/15/1968 DIABETES MICROALBUMIN ANNUAL SCREEN 02/15/1968 LDL CHOLESTEROL ANNUAL 02/15/1968 ZOSTER VACCINE (3 of 3) 09/27/2020 08/02/2020, 01/02 DIABETES HBA1C Q 6 MONTHS 04/30/2023 10/29/2022, Medicare Advantage (NE) Preventative Visit/Annual Wellness Visit 05/28/2024 INFLUENZA VACCINE [...] history exists Medical Devices Implanted Type Area Joint Cutter Device Identifier Shelf Expiration Date Model / Serial / Lot Knee Knee Procedures Procedure Name Priority Date/Time Associated Diagnosis Comments TEMPUS XF Routine 03/20/2025 12:15 PM CDT Malignant neoplasm of colon, unspecified part of colon (CMS/HCC) [facility]T NORMAL BLOOD Routine 03/11/2025 3:23 PM CDT Malignant neoplasm of colon, unspecified part of colon (CMS/HCC) [facility] DNA AND RNA SOLID TUMOR Routine 03/11/2025 3:23 PM CDT Malignant neoplasm of colon, unspecified part of colon (CMS/HCC) from Last 3 Months Results * [facility] XF (03/20/2025 12:15 PM CDT) Reason for Study To identify mutations relevant to patient's cancer. 03/20/2025 12:15 PM CDT [facility] Genetic Diseases Assessed Cancer 03/20/2025 12:15 PM CDT [facility] Description of Ranges of DNA Sequences Examined 105 gene liquid biopsy 03/20/2025 12:15 PM CDT [facility] Overall Interpretation positive 03/20/2025 12:15 PM CDT [facility] Portal [email or web address] 03/20/2025 12:15 PM CDT [facility] Comment:[facility] link Low Coverage Regions JAK1, MSH3, SPOP, TERT 03/20/2025 12:15 PM CDT [facility] Therapy Count 1 03/20/2025 12:15 PM CDT [facility]: Potential Therapy 1 Gene: 795^CHAYITO^HGNC Variant: CHAYITO c.5674+1G>C Match Type: snvIndel Match Type Description: CHAYITO c.5674+1G>C Agent: Olaparib Drug Class: PARP Inhibitor Tissue: Prostate Cancer Association: Response Evidence Status: Consensus Evidence ID: [id number] Variant: [id number] n Label: FDA Off Label FDA Approved?: Yes On label?: No 03/20/2025 12:15 PM CDT [facility] Trial Count 3 03/20/2025 12:15 PM CDT [facility]: Clinical Trial Match 1 Clinical Trial NCT ID: [id number] Clinical Trial Title: A Study of [id number] for the Treatment of Advanced or Metastatic Solid Tumors Clinical Trial URL: [email or web address]://[email or web address].gov/ct2 /show/[email or web address] Clinical Phase: Phase 1/Phase 2 Clinical Trial Matches: CHAYITO c.5674+1G>C mutation Clinical Trial Distance and Location: [address] [place], [place] 03/20/2025 12:15 PM CDT [facility]us: Clinical Trial Match 2 Clinical Trial NCT ID: [id number] Clinical Trial Title: Tumor-agnostic Precision Immuno-oncology and Somatic Targeting Rational for You (TAPISTRY) Platform Study Clinical Trial URL: [email or web address]://[email or web address].gov/ct2 /show/[email or web address] 45 Clinical Phase: Phase 2 Clinical Trial Matches: CHAYITO c.5674+1G>C mutation Clinical Trial Distance and Location: [address] [facility] [place], [place] 03/20/2025 12:15 PM CDT [facility] Tempus: Clinical Trial Match 3 Clinical Trial NCT ID: [id number] Clinical Trial Title: A Study of PARG Inhibitor BUX934 in Participants With Advanced Solid Tumors Clinical Trial URL: [email or web address]://[email or web address].gov/ct2 /show/[email or web address] 87 Clinical Phase: Phase 1 Clinical Trial Matches: CHAYITO c.5674+1G>C mutation Clinical Trial Distance and Location: [address], [place], [place] 03/20/2025 12:15 PM CDT [facility] Tumor Mutational [place] 4.3 m/MB 03/20/2025 12:15 PM CDT [facility] Microsatellite Instability Note MSI-High not detected 03/20/2025 12:15 PM CDT [facility] Variants of Unknown Significance Note No reportable variants of unknown significance (VUSs) were found. 03/20/2025 12:15 PM CDT [facility] Blood specimen (specimen) 03/13/2025 7:28 PM CDT Narrative This result has genomic variants that were not included in this document. us Rey Reyna MD MOLECULAR ORDERABLES Final Resu lt Performing Organization Address City/[facility]/ZIP Co de Phone Number [facility] [address], [address] [place] [address], [place] [phone] [facility] [address] [facility], [address] [place], [place] [address] * [facility] NORMAL BLOOD (03/11/2025 3:23 PM CDT) [facility] 03/11/2025 11:01 PM CDT [facility] Comment:See NGS Report for R esults. Blood specimen (specimen) 03/11/2025 3:23 PM CDT 03/11/2025 3:24 PM CDT Rey Reyna MD MOLECULAR ORDERABLES Final Resu lt Performing Organization Address [facility] de Phone Number [facility] [address] [facility], [address] [place] [address], [place] [phone] [facility] [address] [facility], [address] [place] [phone] from Last 3 Months Insurance HUMANA PPO MCR Advance Directives For more information, please contact: [phone] * Full Code (Latest Code Status on File) Date Activated Date Inactivated Comments 10/16/2018 12:47 AM 10/17/2018 4:54 PM * Full Code Date Activated Date Inactivated Comments 01/27/2014 8:03 AM 01/27/2014 12:09 PM * Full Code Date Activated Date Inactivated Comments 01/27/2014 7:45 AM 01/27/2014 8:03 AM Care Teams Blow Machine Tender Starch Spraying Relationship Specialty Start Date End Date Redd De Anda MD [address] [place] [address] PCP - General Internal Medicine 03/27/23
--- OUTSIDE RECORDS SUMMARY | 2025-03-24 15:21 | XMS_ITS | Patient Health Record ---
Author Organization [employer] Address [address] [facility]. [address] [place] [address] Care Team Providers Care Economic Specialist Name Role Phone Eric Allen DO Primary Care Provider Unavailab le Reason For Referral No Information Plan Of Treatment No Information Insurance Providers Payer Name Payer Address Payer Phone Subscriber Number Group Number Insured Name Patient Relationship to Insured Coverage Start Date Coverage End Date Cmr- [employer] Lcl [address] [phone] [id number] Dane Parker Self - patient is the insured
--- OUTSIDE RECORDS SUMMARY | 2025-03-24 15:21 | XMS_ITS | Clinical Summary ---
Author Organization [facility] [employer] Address [address] [place] [address] Care Team Providers Care Wood Router Hand Name Role Phone Eliceo Templeton RN Unavailable [phone] Casie Pruett RN Unavailable Unava Redd Barbour MD Primary Care Provider [phone] Source Comments [facility],non-owned Affiliates and Associated Physician Practices is amultiple site organization consisting of ambulatory clinics and hospital sitesin [place], [place], [place] and [place]. This disclosure is being madepursuant to the Care Everywhere program and may not contain all information available regarding this patient. 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 [place] [address] Alanis Russ, RN Appointment from Last 3 [...] and heating? Not hard at all 10/28/2022 [facility] [place] [facility] Occup[facility] - Occupational Stress [...] place to sleep or slept in a skilled nursing (including now)? 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 Not on file [...] st Contact Info) Description 05/27/2025 11:45 AM COST ACCOUNTING CLERK Office Visit [facility] - General Surgery [address] [place] [phone] Shabnam Whittaker MD [address] [phone] Health Maintenance Due Date Last Done Comments COLOGUARD (AGES 45-75) - COLON CA SCREENING 1950 CT COLONOGRAPHY - COLON CA SCREENING 1950 FIT - COLON CA SCREENING 1950 FLEX SIG - COLON CA SCREENING 1950 DIABETES-FOOT EXAM WITH MONOFILAMENT 08/11/2019 ZOSTER VACCINE (3 of 3) 09/27/2020 08/02/2020, 01/02 DIABETES-HGB A1C 04/30/2023 10/29/2022, , 01/21/2019, Additional history exists DIABETES-SERUM CREATININE 01/09/20242022, 11/08/2022, 11/07/2022, Additional history exists DEPRESSION SCREENING 05/28/2024 DIABETES - URINE PROTEIN SCREENING 05/28/2024 05/17/2022 MEDICARE AWV CALENDAR YEAR 2024 COVID-19 VACCINE [...] this topic Medical Devices Implanted Type Area Silviculture Teacher Device Identifier Shelf Expiration Date Model / Serial / Lot Cmnt Bone Co Hv 40gm Implanted:Qty: 2 on 09/27/2016 by Enmanuel Cerrato MD at [facility] Right: Knee [employer] 05/27/2018 [id number] / / [id number] Cruciate Retaining Legion Nonporous Femoral Component Implanted:Qty: 1 on 09/27/2016 by Enamnuel Cerrato MD at [facility] Right: Knee [employer] 05/09/2025 [id number] / / [id number] Description:Note: explanted 1 x existing screw. Disposition: trash. Onelia 11 Right Non Porous Tibial Baseplate Implanted:Qty: 1 on 09/27/2016 by Enmanuel Cerrato MD at [facility] Right: Knee [employer] 03/11/2026 [id number] / / [id number] Resurfacing Round Patellar Component Implanted:Qty: 1 on 09/27/2016 by Enmanuel Cerrato MD at [facility] Right: Knee [employer] 01/21/2026 [id number] / / [id number] High Flexion Articular Insert Implanted:Qty: 1 on 09/27/2016 by Enmanuel Cerrato MD at [facility] Right: Knee [employer] 07/02/2025 [id number] / / [id number] George Shai Tib Uncem Fem Implanted:Qty: 1 on 09/27/2016 by Enmanuel Cerrato MD at [facility] [employer] BILL ONLY SHAI TIB UNCEM FEM SNORTHO / / Procedures Procedure Name Priority Date/Time Associated Diagnosis Comments COMPREHENSIVE METABOLIC PANEL STAT 01/08/2023 12:02 PM CDT HEPATITIS C AB SCREEN RFLX NAAT QUANT AM Draw 11/04/2022 4:26 AM CDT HEMOGLOBIN A1C Routine 10/29/2022 5:42 AM CDT MICROALB/CREAT RATIO URINE RANDOM PANEL Routine 05/17/2022 9:16 PM COST ACCOUNTING CLERK from Last 3 Months or Most Recently Relevant to Health Maintenance Results * (ABNORMAL) COMPREHENSIVE METABOLIC PANEL (01/08/2023 12:02 PM [facility]) BUN 15 7 - 26 mg/dL 01/08/2023 12:38 PM [facility] Creatinine 0.72 0.71 - 1.16 mg/dL 01/08/2023 12:38 PM [facility] Sodium 140 136 - 145 mmol/L 01/08/2023 12:38 PM [facility] Potassium 4.1 3.5 - 4.5 mmol/L 01/08/2023 12:38 PM [facility] Chloride 110(H) 98 - 107 mmol/L 01/08/2023 12:38 PM [facility] CO2 21(L) 22 - 29 mmol/L 01/08/2023 12:38 PM [facility] Glucose 171(H) 70 - 115 mg/dL 01/08/2023 12:38 PM [facility] Calcium 9.3 8.4 - 10.2 mg/dL 01/08/2023 12:38 PM [facility] Protein Total 7.3 6.0 - 8.3 g/dL 01/08/2023 12:38 PM [facility] Albumin 4.0 3.4 - 5.0 g/dL 01/08/2023 12:38 PM [facility] Bilirubin Total 0.3 0.2 - 1.2 mg/dL 01/08/2023 12:38 PM [facility] Alkaline Phosphatase 85 40 - 150 U/L 01/08/2023 12:38 PM [facility] ALT 15 5 - 55 U/L 01/08/2023 12:38 PM [facility] AST 21 5 - 34 U/L 01/08/2023 12:38 PM [facility] Anion Gap 13 8 - 18 01/08/2023 12:38 PM [facility] BUN/Creatinine Ratio 21 7 - 23 01/08/2023 12:38 PM [facility] Osmolality Calculated 295 270 - 300 mOsm/kg 01/08/2023 12:38 PM [facility] Albumin/Globulin Ratio 1.2 1.1 - 2.3 01/08/2023 12:38 PM CDT [facility] eGFR by CKD-EPI >90 >=90 mL/min/1.7 3 m2 01/08/2023 12:38 PM CDT [facility] Blood BLOOD SPECIMEN / Unknown Venipuncture / Unknown 01/08/2023 12:02 PM CDT 01/08/2023 12:13 PM CDT Joao Patel PA-C LAB - CHEMISTRY OR DERABLES Final Result Performing Organization Address City/[facility]/ZIP Co de Phone Number [address] [address], [facility] [phone] * HEPATITIS C AB SCREEN RFLX NAAT QUANT (11/04/2022 4:26 AM CDT) Pathologist [facility] Hepatitis C Antibody Non-react kinjal Non-reac tive 11/04/2022 6:27 AM CDT [facility] Comment:Hepatitis C Antibody screen indicates [...] 4:26 AM CDT 11/04/2022 5:44 AM CDT Daryl Nicolas APRN-ART OBJECTS SUPERVISOR LAB - CHEMISTRY ORDERABL ES Final Result [facility] [address] [place] [address], [facility] [phone] * (ABNORMAL) HEMOGLOBIN A1C (10/29/2022 5:42 AM CDT) Pathologist [facility] Hemoglobin A1c 6.9(H) <=5.6 % 10/30/2022 1:24 PM CDT [facility] Estimated Average Glucose 151 mg/dL 10/30/2022 1:24 PM CDT [facility] Comment: HbA1c Interpretation: Normal : < 5.7% Pre-diabetes: 5.7-6.4% Diabetes: Equal to or greater than 6.5% Test results diagnostic of diabetes should be repeated for confirmation. Treatment target values recommended by ADA and other clinical organizations should be used to evaluate metabolic control in patients. Reference: [place] Diabetes Association, Standards of Care in [...] MD LAB - CHEMISTRY ORDERABLES Final Result [address] [address], [facility] [phone] * (ABNORMAL) MICROALB/CREAT RATIO URINE RANDOM PANEL (05/17/2022 9:16 PM COST ACCOUNTING CLERK) Pathologist [facility] Creatinine Urine 83.67 mg/dL 05/17/20 9:55 PM COST ACCOUNTING CLERK [facility] Microalbumin Urine 13.8 mg/dL 05/17/2022 9:55 PM COST ACCOUNTING CLERK [facility] Microalbumin/Crea tinine Ratio 164(H) <30 mg/g 05/17/2022 9:55 PM COST ACCOUNTING CLERK [facility] Urine URINE SPECIMEN OBTAINED BY CLEAN CATCH PROCEDURE / Unknown Collection / Unknown 05/17/2022 9:16 PM COST ACCOUNTING CLERK 05/17/2022 9:35 PM COST ACCOUNTING CLERK us Trinidad Mckenzie MD LAB - URINE CHEMISTRY ORDERABLES Final Result [facility] [address] [place] [address] from Last 3 Months or Most Recently Relevant to Health Maintenance Insurance HUMANA Member Subscriber Plan / Payer (Ef fective for All Dates) Name:Dane Parker Relation to Subscriber:Self Name:Dane Parker Payer ID:[id number] (NAIC) Type:MedicareManaged Care Address: [address] MEDICARE ADV HMO & PPO [facility] Address: [place] [address] SELF PAY NO INSURANCE Member Subscriber Plan / Payer (Ef fective for All Dates) Name:Dane Parker Member ID:Not on file Relation to Subscriber:Not on file Name:DANE PARKER Subscriber ID:Not on file (Home) Address: [address] [place] [address] Payer ID:Not on file Group ID:Not on file Type:Self Pay Address: [place], [place] Advance Directives * Full Code (Latest [...] 4:13 PM 09/03/2014 6:45 PM Care Teams Wood Router Hand Relationship Specialty Start Date End Date Redd De Anda MD [address] [place], [place] [id number] PCP - General Internal Medicine 05/11/22 Eliceo Templeton, RN Cinder Block Mason 10/22/13 GideonCasie Celeste RN Registered Nurse 09/28/16
== END 2025-03-24 13:22 | disposition home or self-care (01) ==
LOC: ANHIMG 13:24
PROVIDERS: PCP Internal Medicine; Visit Provider Internal Medicine Hematology & Oncology
DX: C18.7 Malignant neoplasm of sigmoid colon (principal)
CPT/HCPCS: 78815; A9552